=== PATIENT | female | born 1935 | race Caucasian/White ===

== ENCOUNTER → 2016-07-01 | Outpatient (CLI) | payer MEDICARE, OTHER, BC ==
[~2016-07-01] MED LIST: 8 HO650T PO; ACET-654 PO; ADV250INH INH; ALBU0.63 INH; ALBU17IN INH; AMIO200T37 PO; AMIO20TA PO; ASPI81TA13 PO; ATOR1TAB18 PO; ATOR40TA PO; BISA10SU PR; BREO1INH3 INH; CARD180C4 PO; CART300C PO; CEFT500T3 PO; CELE10TA PO; CLOP75TA2 PO; COLA100C PO; COZA1TAB PO; DILT180C74 PO; DILT360C16 PO; DILT360C2 PO; DULC10SU2 PO; DULC5TAB PO; ELIQ5TAB PO; FERR325T3 PO; FLUC10TA PO; FURO40TA2 PO; INSUDET SC; IPRA2IN INH; IRON65TA PO; LASI20TA PO; LEVA500T PO; LEVO50TA5 PO; LEVO75TA4 PO; LIPI80TA PO; LOSA25TA8 PO; METF1000 PO; MILKSUS PO; MIRA33504 PO; MUCI600T34 PO; NITR4TASL SL; NYST100024 TOP; NYST10OI TOP; NYST50SS SS; OCEA0.654; OMEP20CA3 PO; PACE200T PO; PANT40TA2 PO; PRED10TA PO; PRED20TA PO; PRIL20CA9 PO; REGL5TAB2 PO; SENN1TAB4 PO; SENO8.6T10 PO; SPIR1CAP INH; SUCR1TA PO; SYNT50TA PO; TYLE167L PO; VIAC8.5C PO; VIACCHW4 PO; VIBR100C PO; VITA10006 PO; VITA100066 PO; VITA100T20 PO; VITMTA PO
--- NOTE | 2016-07-01 15:57 | REP ---
Chest x-ray: Two views. History: Chronic diastolic congestive heart failure. Comparison chest x-ray May 11, 2016. Findings: Mild to moderate cardiomegaly is observed unchanged. There is no evidence of pleural effusion. Bilateral lower lobe fibrosis versus discoid atelectasis is seen. The aorta is calcific. Mild degenerative changes are seen in the thoracic spine. There are clips in the upper abdomen on the right. Impression: Cardiomegaly with bibasilar interstitial fibrosis pattern. No pulmonary vascular congestion, pulmonary edema or pleural effusion seen. Signed by Bang Christopher MD 07/01/2016 05:41 P
[2016-07-01 18:11] LABS: ALBUMIN 2.9 GM/DL (3.2-5.2); ALBUMIN/GLOBULIN RATIO 0.81 (1.00-1.93); BILIRUBIN,TOTAL 0.2 MG/DL (0.2-1.0); CALCIUM LEVEL 8.9 MG/DL (8.8-10.2); CREATININE FOR GFR 1.04 MG/DL (0.55-1.02); GLOMERULAR FILTRATION RATE 54.6 (>39); MAGNESIUM LEVEL 1.6 MG/DL (1.8-2.4); POTASSIUM SERUM 4.2 MEQ/L (3.5-5.1); TOTAL PROTEIN 6.5 GM/DL (6.4-8.2)
== END ==
LOC: M RAD 14:58
PROVIDERS: ATTEND Physician Assistant
DX: I51.7 Cardiomegaly (principal); I50.32 Chronic diastolic (congestive) heart failure; I48.0 Paroxysmal atrial fibrillation

== ENCOUNTER → 2016-07-22 | Outpatient (REF) | payer MEDICARE, OTHER | LOC: M SFHCCAPE 11:12 | PROVIDERS: ATTEND Physician Assistant | DX: J02.9 Acute pharyngitis, unspecified (principal) ==

== ENCOUNTER 2016-08-31 23:16 | Inpatient (IN) | payer MEDICARE, BC, OTHER ==
[~2016-08-31] VITALS: Ht 160 cm; Wt 71.4 kg
[~2016-08-31 23:16] MED LIST changes: -COLA100C PO; +COLA100C3 PO
[2016-09-01] VITALS (25 sets, daily range): BP systolic 113–215; BP diastolic 57–131
[2016-09-01] MEDS ORDERED: CEFEPIME HCL 2 GM in D5W MINI-BAG PLUS 50 ML IV ONE ×2
[2016-09-01 00:07] LABS: BASO # 0.1 K/mm3 (0.0-0.2); BASO % 0.5 % (0.0-1.0); EOS # 0.4 K/mm3 (0.0-0.50); EOS % 3.1 % (0.0-3.0); LARGE UNSTAINED CELL # 0.2 K/mm3 (0.0-0.4); LARGE UNSTAINED CELL % 1.5 % (0.0-4.0); LYMPH # 2.2 K/mm3 (1.5-4.5); LYMPH % 16.7 % (24.0-44.0); MEAN CORPUSCULAR HEMOGLOBIN 25.3 pg (27.0-33.0); MEAN CORPUSCULAR HGB CONC 30.7 g/dl (32.0-36.5); MEAN CORPUSCULAR VOLUME 82.2 fl (80.0-96.0); MONO # 0.6 K/mm3 (0.0-0.8); MONO % 5.2 % (0.0-5.0); NEUTROPHILS # 8.8 K/mm3 (1.8-7.7); PLATELET COUNT, AUTOMATED 460 k/mm3 (150-450); RED CELL DISTRIBUTION WIDTH 14.8 % (11.5-14.5)
[2016-09-01 00:09] LABS: ABG BASE EXCESS 8.7 (-2.0-2.0); ABG HCO3 32.9 MEQ/L (22.0-26.0); ABG PARTIAL PRESSURE CO2 43.6 mmHg (35.0-45.0); ABG PARTIAL PRESSURE O2 50.7 mmHg (75.0-100.0); ABG STANDARD HCO3 32.3 MEQ/L (22.0-26.0); ABG TOTAL CO2 34.2 MEQ/L (23.0-31.0); ABG pH (ARTERIAL) 7.495 UNITS (7.350-7.450)
[2016-09-01 00:35] LABS: ANION GAP 14 MEQ/L (8-16); BLOOD UREA NITROGEN 28 MG/DL (7-18); CALCIUM LEVEL 9.1 MG/DL (8.8-10.2); CARBON DIOXIDE LEVEL 31 MEQ/L (21-32); CHLORIDE LEVEL 96 MEQ/L (98-107); CREATININE FOR GFR 1.51 MG/DL (0.55-1.02); GLOMERULAR FILTRATION RATE 35.4 (>39); GLUCOSE, FASTING 131 MG/DL (83-110); POTASSIUM SERUM 3.9 MEQ/L (3.5-5.1); SODIUM LEVEL 141 MEQ/L (136-145)
[2016-09-01] MEDS ORDERED: CARD180C4 PO (00:36)
[2016-09-01] MEDS ORDERED: SYNT75TA PO (00:36)
[2016-09-01] MEDS ORDERED: SENN1TAB4 PO (00:36)
[2016-09-01] MEDS ORDERED: ALBUTEROL 90 MCG/ACT 8GM HFA INHALER INH PRN (01:45)
[2016-09-01] MEDS ORDERED: GLUCOSE 4 GM CHEW TABLET PO PRN (01:45)
[2016-09-01] MEDS ORDERED: NITROGLYCERIN 0.4 MG SUBL TABLET SL PRN (01:45)
[2016-09-01] MEDS ORDERED: DEXTROSE 50% 50 ML SYRINGE IV PRN (01:45)
[2016-09-01] MEDS ORDERED: GLUCAGON FOR INJ 1 MG VIAL (J1610) SC PRN (01:45)
--- NOTE | 2016-09-01 01:48 | HPEPDOC ---
General Date of Admission 09/01/2016 Chief Complaint The patient is a 81-year-old female Presented to the ER with complaints of shortness of breath. History of Present Illness Patient is a 81 year old female with a PMHx COPD on Home O2 (2-3 liters), CHF (Diastolic dysfunction, EG 75%), Pulmonary HTN, CAD s/p stent, NIDDM2, Atrial fibrillation (on Eliquis), Chronic vertigo, DLP, JASPAL not on CPAP , Iron deficiency anemia, Hypothyroidism and Hx of aspiration and pseudomonas pneumonia. Patient presented to the ED with complaints of shortness of breath that has been worsening over the last 3 days. Patient noted that she was hospitalized in March to April for pneumonia and had a collapse of her left lower lobe that was suspected to be secondary to mucous plugging. Since she left the hospital she has had some shortness of breath, but it has acutely worsened in the last 3 days. She reports a non-productive cough. No fever or chills. No nausea or vomiting. Reports some chest aching at the lower aspect of her chest radiating to her back. She rates it a 10/10, continuous pain, alleviated by sitting up and aggravated by lying flat. She denies any abdominal pain, constipation, diarrhea or urinary symptoms. Home Medications Scheduled (Viactiv 500-500-40 mg-Unt-Mcg) 1 Chw Chw 1 CHW PO QPM (Reported) TAKES AT DINNERTIME Amiodarone HCl (Amiodarone Hydrochloride) 200 Mg Tab 200 MG PO DAILY (Reported ) TAKES AT LUNCHTIME Apixaban Base (Eliquis) 5 Mg Tab 5 MG PO BID (Reported) Aspirin (Aspirin EC) 81 Mg Tab 81 MG PO DAILY (Reported) Atorvastatin Calcium (Atorvastatin Calcium) 40 Mg Tab 40 MG PO QPM (Reported) TAKES AT DINNERTIME Diltiazem Hcl (Cardizem Cd) 180 Mg Cap 180 MG PO DAILY (Reported) Fluticasone/Vilanterol (Breo Ellipta 200-25 Mcg/INH) 1 Inh Inh 1 INH INH BID ( Reported) Furosemide (Lasix) 20 Mg Tab 20 MG PO DAILY (Reported) TAKES AT LUNCHTIME Furosemide (Furosemide) 40 Mg Tab 40 MG PO DAILY (Reported) Levothyroxine Sodium (Synthroid) 75 Mcg Tab 75 MCG PO QAM (Reported) Losartan Potassium (Losartan Potassium) 25 Mg Tab 25 MG PO DAILY (Reported) HOLD IF SBP < 100; TAKES AT LUNCHTIME Metformin Hydrochloride (Metformin HCl) 1,000 Mg Tab 1,000 MG PO BID (Reported ) Multivitamins *[facility] STOCKED* (Thera M Plus *[facility] STOCKED*) 1 Tab Tab 1 TAB PO DAILY (Reported) Omeprazole (Omeprazole) 20 Mg Cap 20 MG PO DAILY (Reported) Senna (Senna-Lax) 8.6 Mg Tab 1 TAB PO QPM (Reported) Tiotropium Cornish Monohydrate (Spiriva Handihaler) 18 Mcg Cap 18 MCG INH DAILY (Reported) Scheduled PRN Albuterol Sulfate (Ventolin Hfa) 200 Puff/8 Gm Aers 2 PUFF INH Q4H PRN PRN SHORTNESS OF BREATH (Reported) Nitroglycerin (Nitrostat) 0.4 Mg Subl 0.4 MG SL NITRO PRN PRN ANGINA (Reported) Allergies Coded Allergies: MYA Inhibitors (Unverified Allergy, Unknown, COUGH, 08/31/16) Penicillins (Unverified Allergy, Unknown, RASH, 08/31/16) Penicillins Cross Reactors (Unverified Allergy, Unknown, RASH, 08/31/16) Sulfa Drugs (Unverified Allergy, Unknown, RASH, 08/31/16) Sulfa Drugs Cross Reactors (Unverified Allergy, Unknown, RASH, 08/31/16) NSAIDs (Unverified Adverse Reaction, Mild, GI UPSET DUODENITIS, 08/31/16) Spironolactone (Unverified Adverse Reaction, Mild, ELEVATES POTASSIUM, ) Past Medical History Medical History COPD on Home O2 (2-3 liters), CHF (Diastolic dysfunction, EG 75%), Pulmonary HTN , CAD s/p stent, NIDDM2, Atrial fibrillation (on Eliquis), Chronic vertigo, DLP , JASPAL not on CPAP, Iron deficiency anemia, Hypothyroidism and Hx of aspiration and pseudomonas pneumonia Surgical History Cholecystectomy Hysterectomy Appendectomy Bilateral cataract excision Lumpectomy in right breast Family History - non contributory Social History - Denies the use of alcohol or illicit drugs; Quit smoking in 1982, smoker of 30 years at 1 [facility] - Denies recent travel or sick contacts; last hospitalization was in [place] 2016 - Lives with - 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; 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 Review of Symptoms Other systems Constitutional: Denies weight loss, change in appetite, or recent trauma Eyes: No visual changes or eye pain Ears, Nose, Throat: Denies nose bleeds, or difficulty swallowing Cardiovascular: Positive chest pain, No sweating, or orthopnea Respiratory: Positive non-productive cough, and shortness of breath, no wheezing GI: Ruy nausea, vomiting, abdominal pain, diarrhea or constipation : Denies pain with urination or frequency Musculoskeletal: Denies joint pain or swelling Neuro / Psych: Denies muscle weakness or sensory loss Skin: No skin rashes noted All other review of systems negative; otherwise stated in history of present illness Vital Signs - Vitals: BP 156/71, HR 77, RR 22, Sat 91%NC2L, Temp 98.1F - General: Lying in bed, No acute distress, Speaking in full sentences, AAOx3 - HEENT: NC, AT, Asymmetric pupils, but reactive, EOMI - CVS: RRR, +S1S2, + systolic murmur - Lungs: Poor inspiratory effort, +Rhonchi on left lower lobe - Abdomen: Soft, Non-distended, Non-tender, + Bowel sounds x 4 - Extremities: + PPx4, No lower extremity edema, No calf tenderness - Neuro: No focal motor or sensory deficit - Skin: No visible rashes Laboratory Data Labs 24H Laboratory Tests 2 08/31/16 23:49: Anion Gap 14, Arterial Blood pH 7.495H, Arterial Blood Partial Pressure CO2 43.6 , Arterial Blood Partial Pressure O2 50.7L, Arterial Blood Total CO2 34.2H, Arterial Blood HCO3 32.9H, Arterial Blood Base Excess 8.7H, Arterial Blood Oxygen Saturation 87.0L, B-Type Natriuretic Peptide 203H, Blood Gas Bicarbonate Standard 32.3H, Blood Urea Nitrogen 28H, Creatinine 1.51H, Sodium Level 141, Potassium Level 3.9, Chloride Level 96L, Carbon Dioxide Level 31, Calcium Level 9.1, Total Creatine Kinase 49, Creatine Kinase MB 1.0, Creatine Kinase MB Relative Index 2.04, Glomerular Filtration Rate 35.4L, Troponin I < 0.02 08/31/16 23:50: White Blood Count 12.0H, Red Blood Count 3.85L, Hemoglobin 9.7L, Hematocrit 31.6L, Mean Corpuscular Volume 82.2, Mean Corpuscular Hemoglobin 25.3L, Mean Corpuscular Hemoglobin Concent 30.7L, Red Cell Distribution Width 14.8H, Platelet Count 460H, Neutrophils (%) (Auto) 73.0H, Lymphocytes (%) (Auto) 16.7L , Monocytes (%) (Auto) 5.2H, Eosinophils (%) (Auto) 3.1H, Basophils (%) (Auto) 0.5, Neutrophils # (Auto) 8.8H, Lymphocytes # (Auto) 2.2, Monocytes # (Auto) 0.6 , Eosinophils # (Auto) 0.4, Basophils # (Auto) 0.1, Lactic Acid (Sepsis) 3.1*H, Large Unclassified Cells # 0.2, Large Unclassified Cells % 1.5, Thyroid Stimulating Hormone (TSH) 3.090 CBC/BMP Laboratory Tests 08/31/16 23:49 Calcium Level 9.1, Total Creatine Kinase 49 08/31/16 23:50 Red Blood Count 3.85 L, Mean Corpuscular Volume 82.2, Mean Corpuscular Hemoglobin 25.3 L, Mean Corpuscular Hemoglobin Concent 30.7 L, Red Cell Distribution Width 14.8 H, Neutrophils (%) (Auto) 73.0 H, Lymphocytes (%) (Auto ) 16.7 L, Monocytes (%) (Auto) 5.2 H, Eosinophils (%) (Auto) 3.1 H, Basophils (% ) (Auto) 0.5, Neutrophils # (Auto) 8.8 H, Lymphocytes # (Auto) 2.2, Monocytes # (Auto) 0.6, Eosinophils # (Auto) 0.4, Basophils # (Auto) 0.1 Microbiology Microbiology 09/01/16 Blood Culture, Received Pending 08/31/16 Blood Culture, Received Pending Plan / VTE VTE Prophylaxis Ordered?: Yes Plan Plan Dyspnea likely 2/2 left lower lobe pneumonia and collapse, possibly 2/2 mucous plugging, possibly 2/2 underlying endobronchial malignancy - Presented with dyspnea, no fevers or productive cough - History of LL collapse in the past, attributed to mucous plugging - Elevated WBC and lactic acid - CT chest official report pending - Will check blood cultures and sputum cultures - Will start incentive spirometry and chest PT - Will continue with Meropenem and Vancomycin - Will give IV fluid hydration - May require bronchoscopy to further evaluate Chest pain likely 2/2 referred pain, less likely cardiac - EKG reveals no acute changes - Troponin first set negative - Will keep on telemetry - Will trend COPD on Home O2 (2-3 liters) CHF (Diastolic dysfunction, EG 75%) - will hold diuretics for now Pulmonary HTN CAD s/p stent NIDDM2 Atrial fibrillation (on Eliquis) Chronic vertigo DLP JASPAL not on CPAP Iron deficiency anemia Hypothyroidism Hx of aspiration and pseudomonas pneumonia DVT prophylaxis - On full anticoagulation with CHEN Roberto MD Sep 01, 2016 01:48
--- NOTE | 2016-09-01 01:50 | REPUSA ---
CLINICAL HISTORY: Left lung opacification on chest x-ray. TECHNIQUE: Multiple axial CT images were obtained through chest without IV contrast material. MPR cor onal and sagittal sequences were obtained. COMMENTS: Comparison is made to the prior exam performed on 04/12/2016. Mild increase in small left pleural effusion. Enlarged main pulmonary artery suggestive of pulmonary hypertension. There is loss of volume of the left upper lobe. This was not present on the prior exam. There is better aeration of the left lower lobe. There is decrease in groundglass densities of the right lower lobe. Unchanged chronic bronchitis. Unchanged mediastinal shift to the left side. Small sliding type hiatal hernia. Prior cholecystectomy. IMPRESSION: Loss of volume in the left upper lobe. Mediastinal shift to the left side. Mild increase in small left pleural effusion. Better aeration of the left lower lobe. Decreased ground glass densities in the right lower lobe. Thank you for your kind referral of this patient.
[2016-09-01] MEDS ORDERED: NS 1,000 ML IV SCH (03:07)
[2016-09-01] MEDS ORDERED: SODIUM CHLORIDE 0.9% 1000 ML IV ONE (03:17)
--- NOTE | 2016-09-01 03:31 | PHACANCOPD ---
PHARMACY VANCOMYCIN DOSING Pt Demographics Demographics Patient Age:81 , Weight: , Gender: female Adjusted Body Weight Date: 09/01/16, Adjusted Body Weight: [58] Kg Events Past 24 Hours Events Past 24 Hours: NO: Change in CrCl, Dialysis, Diuretic Therapy, Elevation in WBC, Fever, Other, Pending Diagnostics, Pending Procedures Vancomycin Vancomycin Target Ranges: 15-20 mcg/ml Vancomycin Load Y/N: No Load Dose Date Time Vancomycin Load Dose: Date: Time: Vancomycin Dose Date: 09/01/16. Current Vancomycin Dose: [1000MG Q24H] Intermittent Dosing?: No Labs Labs Item Value Date Time White Blood Count 12.0 K/mm3 H 08/31/16 2350 Creatinine 1.51 MG/DL H 08/31/16 2349 Vital Signs Label Value Date Time Patient Temperature 98.4 degrees F 09/01/16 0250 Temperature Source Oral 09/01/16 0250 Micro Microbiology 09/01/16 Blood Culture, Received Pending 08/31/16 Blood Culture, Received Pending 09/01/16 Respiratory Virus Panel (PCR) (CATHY), Received Pending Creatinine Clearance Date:09/01/16. Creatinine Clearance: [27]. Pending Labs trough 03 @0300 Assessment and Plan Maintaining Current Dose?: Yes Reason for dose change: No Dose Change Pharmacist Note Pharmacist Note Date: 09/01/16. Pharmacist note:Patient dosed at 1000mg q24h with a trough scheduled for 03 @0300. Will continue to monitor and make adjustments as needed. KRISSY MCNALLY PHARMACY Sep 01, 2016 03:31
[2016-09-01] MEDS ORDERED: MORPHINE 2 MG/ML 1ML SYRINGE IV ONE (03:45)
[2016-09-01] MEDS: VANCOMYCIN HCL 1,000 MG, VIAL MATE ADAPTER 1 EACH in D5W 250 ML IV SCH (04:01)
[2016-09-01 04:36] LABS: BASO # 0.1 K/mm3 (0.0-0.2); BASO % 0.5 % (0.0-1.0); EOS # 0.3 K/mm3 (0.0-0.50); EOS % 2.7 % (0.0-3.0); LARGE UNSTAINED CELL # 0.2 K/mm3 (0.0-0.4); LARGE UNSTAINED CELL % 1.7 % (0.0-4.0); LYMPH # 2.2 K/mm3 (1.5-4.5); LYMPH % 16.5 % (24.0-44.0); MEAN CORPUSCULAR HEMOGLOBIN 25.7 pg (27.0-33.0); MEAN CORPUSCULAR HGB CONC 31.3 g/dl (32.0-36.5); MEAN CORPUSCULAR VOLUME 82.1 fl (80.0-96.0); MONO # 0.6 K/mm3 (0.0-0.8); MONO % 5.3 % (0.0-5.0); NEUTROPHILS # 8.9 K/mm3 (1.8-7.7); NEUTROPHILS % 73.4 % (36.0-66.0); PLATELET COUNT, AUTOMATED 444 k/mm3 (150-450); RED CELL DISTRIBUTION WIDTH 14.6 % (11.5-14.5); WHITE BLOOD COUNT 12.1 K/mm3 (4.0-10.0)
[2016-09-01 05:00] LABS: ALBUMIN 3.3 GM/DL (3.2-5.2); ALBUMIN/GLOBULIN RATIO 0.77 (1.00-1.93); ALKALINE PHOSPHATASE 63 U/L (45-117); ALT/SGPT 17 U/L (12-78); ANION GAP 10 MEQ/L (8-16); AST/SGOT 11 U/L (15-37); BILIRUBIN,TOTAL 0.4 MG/DL (0.2-1.0); BLOOD UREA NITROGEN 27 MG/DL (7-18); CALCIUM LEVEL 8.8 MG/DL (8.8-10.2); CARBON DIOXIDE LEVEL 34 MEQ/L (21-32); CHLORIDE LEVEL 96 MEQ/L (98-107); CREATININE FOR GFR 1.51 MG/DL (0.55-1.02); GLOMERULAR FILTRATION RATE 35.4 (>39); GLUCOSE, FASTING 120 MG/DL (83-110); POTASSIUM SERUM 3.9 MEQ/L (3.5-5.1); SODIUM LEVEL 140 MEQ/L (136-145); TOTAL PROTEIN 7.6 GM/DL (6.4-8.2)
[2016-09-01] MEDS: MEROPENEM INJ 500 MG in D5W MINI-BAG PLUS 100 ML IV SCH ×2 (05:52→17:10)
[2016-09-01] MEDS: LEVOTHYROXINE 0.075 MG TAB (75 MCG) PO SCH (05:52)
[2016-09-01] MEDS: HumaLOG INSULIN (NovoLOG) PER UNIT SC SCH ×3 (05:54→18:00)
[2016-09-01 06:18] LABS: ABG BASE EXCESS 8.4 (-2.0-2.0); ABG PARTIAL PRESSURE CO2 46.3 mmHg (35.0-45.0); ABG PARTIAL PRESSURE O2 56.4 mmHg (75.0-100.0); ABG STANDARD HCO3 32.1 MEQ/L (22.0-26.0); ABG TOTAL CO2 34.4 MEQ/L (23.0-31.0); ABG pH (ARTERIAL) 7.471 UNITS (7.350-7.450)
[2016-09-01] MEDS ORDERED: HumaLOG INSULIN (NovoLOG) PER UNIT SC SCH ×2 (07:30→21:00)
[2016-09-01] MEDS: ACETAMINOPHEN TAB 650MG DOSE (2X325MG) PO PRN (07:43)
[2016-09-01] MEDS: ASPIRIN 81 MG ENTERIC TAB PO SCH (07:54)
[2016-09-01] MEDS: MULTIVITAMINS/MINERALS THERAP 1 TAB PO SCH (07:54)
[2016-09-01] MEDS: APIXABAN 5 MG TAB (ELIQUIS) PO SCH ×2 (07:54→17:09)
[2016-09-01] MEDS: OMEPRAZOLE 20 MG CAP PO SCH (07:55)
[2016-09-01] MEDS: diltiaZEM **CD** 180 MG CAP PO SCH (07:55)
[2016-09-01] MEDS: TIOTROPIUM INHALER/CAPSULE (SPIRIVA) INH SCH (08:41)
--- NOTE | 2016-09-01 08:57 | IPNPDOC ---
Subjective Date Seen The patient was seen on 09/01/16. Subjective Chief Complaint/HPI The patient is a 81-year-old female admitted with a reason for visit of Dyspnea. Events since last encounter States LIGHT and SOB mildly improved since admission. Denies ill contacts. C?o pleuritic CP and back pain with coughing, deep inspiration. Constitutional: Denies: Chills, Fever, Night Sweats Skin: Denies: Breakdown, Lesions, Rash Pulmonary: Reports: Cough, Dyspnea, Pleuritic Chest Pain Cardiovascular: Denies: Chest Pain, Lt Headedness, Orthopnea, Palpitations, Paroxysmal Noc. Dyspnea Gastrointestinal: Denies: Abdominal Pain, Constipation, Diarrhea, Nausea, Vomiting Genitourinary: Denies: Dysuria, Frequency, Incontinence, Retention Psych: Reports: Mood Normal, Denies: Depression, Memory Issues Objective Physical Examination General Exam: Positive: Alert, Mild Distress Eye Exam: Positive: Conjunctiva & lids normal, EOMI, PERRLA, Negative: Sclera icteric Neck Exam: Positive: Supple, Negative: JVD, thyromegaly Chest Exam: Positive: Diminished (minimal breath sounds Left lung. diminished RUL) Heart Exam: Positive: Normal S1, Normal S2, Rate Normal, Regular Rhythm, Negative: Murmurs, Rubs Telemetry: Positive: AV Block Abdomen Exam: Positive: Normal bowel sounds, Soft, Negative: Hepatospenomegaly, Tenderness Extremity Exam: Positive: Normal pulses, Negative: Clubbing, Cyanosis, Edema Skin Exam: Positive: Nl turgor and temperature, Negative: Breakdown, Rash Neuro Exam: Positive: Normal Speech Psych Exam: Positive: Mental status NL, Mood NL, Oriented x 3 Assessment /Plan Problems (1) COPD with acute exacerbation Status: Acute Problem Text: + MRSA in sputum last admission. Will eval repeat sputum cx. Oxygenation with face mask. maintain oxygen saturations 88-92% (2) Atrial fibrillation, chronic Status: Chronic Problem Text: Follows with [facility]ORGE. Eliquis bid. Home Cardizem dosing continued. (3) Obstructive sleep apnea Status: Chronic Problem Text: no CPAP use at home. (4) Coronary arteriosclerosis Status: Chronic (5) Diabetes mellitus Status: Chronic Response to Treatment: Stable Problem Specific Plan: Monitor Clinically (6) Hypothyroidism Status: Chronic Response to Treatment: Stable Problem Specific Plan: Monitor Clinically (7) Chest wall pain Status: Acute Problem Text: Secondary to coughing, respiratory abnormalities. K-pad prn. Tylenol prn. Hydrocodone prn. (8) Diastolic CHF, chronic Permanent Comment: ECHO 04/2016: LVEF 75% Borderline concentric left ventricle hypertrophy with hyperkinetic wall motion. Mildly dilated left atrium with Doppler evidence of impairment of LV diastolic function but current estimated mean left atrial pressure upper limits of normal to slightly increased. Mildly dilated right heart chambers with Doppler evidence of at least moderate pulmonary hypertension. Inferior vena cava (IVC) upper limits of normal with normal respiratory collapse against an elevated central venous pressure at this time. Mild calcific aortic stenosis with very mild insufficiency. Moderately severe mitral annular calcification without inflow tract obstruction and only mild eccentric insufficiency. Last Edited By: Karla Garcia NP on Sep 01, 2016 08:56 Status: Chronic Problem Specific Plan: Monitor Clinically Plan/VTE VTE Prophylaxis Ordered?: Yes (Eliquis) Plan Diet: Advance Activity: Continue Current Diagnostics: Repeat Labs in AM VS, I&O, [facility] Sign[facility]/I&O Vital Signs Date Time Temp Pulse Resp B/P Pulse Ox O2 Delivery O2 Flow Rate FiO2 09/01/16 07:55 69 178/72 09/01/16 06:00 93 Venturi Mask 09/01/16 05:00 50 09/01/16 04:01 20 09/01/16 03:07 97.9 4.0 I&O- Last 24 Hours up to 6 AM 09/01/16 06:00 Intake Total 50 ml Output Total 80 ml Balance -30 ml Laboratory Data 24H LABS Laboratory Tests 2 08/31/16 23:49: Anion Gap 14, Arterial Blood pH 7.495H, Arterial Blood Partial Pressure CO2 43.6 , Arterial Blood Partial Pressure O2 50.7L, Arterial Blood Total CO2 34.2H, Arterial Blood HCO3 32.9H, Arterial Blood Base Excess 8.7H, Arterial Blood Oxygen Saturation 87.0L, B-Type Natriuretic Peptide 203H, Blood Gas Bicarbonate Standard 32.3H, Blood Urea Nitrogen 28H, Creatinine 1.51H, Sodium Level 141, Potassium Level 3.9, Chloride Level 96L, Carbon Dioxide Level 31, Calcium Level 9.1, Total Creatine Kinase 49, Creatine Kinase MB 1.0, Creatine Kinase MB Relative Index 2.04, Glomerular Filtration Rate 35.4L, Troponin I < 0.02 08/31/16 23:50: White Blood Count 12.0H, Red Blood Count 3.85L, Hemoglobin 9.7L, Hematocrit 31.6L, Mean Corpuscular Volume 82.2, Mean Corpuscular Hemoglobin 25.3L, Mean Corpuscular Hemoglobin Concent 30.7L, Red Cell Distribution Width 14.8H, Platelet Count 460H, Neutrophils (%) (Auto) 73.0H, Lymphocytes (%) (Auto) 16.7L , Monocytes (%) (Auto) 5.2H, Eosinophils (%) (Auto) 3.1H, Basophils (%) (Auto) 0.5, Neutrophils # (Auto) 8.8H, Lymphocytes # (Auto) 2.2, Monocytes # (Auto) 0.6 , Eosinophils # (Auto) 0.4, Basophils # (Auto) 0.1, Lactic Acid (Sepsis) 3.1*H, Large Unclassified Cells # 0.2, Large Unclassified Cells % 1.5, Thyroid Stimulating Hormone (TSH) 3.090 09/01/16 04:08: Anion Gap 10, Blood Urea Nitrogen 27H, Creatinine 1.51H, Sodium Level 140, Potassium Level 3.9, Chloride Level 96L, Carbon Dioxide Level 34H, Calcium Level 8.8, Total Creatine Kinase 46, Creatine Kinase MB 1.0, Creatine Kinase MB Relative Index 2.17, Glomerular Filtration Rate 35.4L, Troponin I < 0.02, White Blood Count 12.1H, Red Blood Count 3.71L, Hemoglobin 9.5L, Hematocrit 30.4L, Mean Corpuscular Volume 82.1, Mean Corpuscular Hemoglobin 25.7L, Mean Corpuscular Hemoglobin Concent 31.3L, Red Cell Distribution Width 14.6H, Platelet Count 444, Neutrophils (%) (Auto) 73.4H, Lymphocytes (%) (Auto) 16.5L, Monocytes (%) (Auto) 5.3H, Eosinophils (%) (Auto) 2.7, Basophils (%) (Auto) 0.5 , Neutrophils # (Auto) 8.9H, Lymphocytes # (Auto) 2.2, Monocytes # (Auto) 0.6, Eosinophils # (Auto) 0.3, Basophils # (Auto) 0.1, Lactic Acid (Sepsis) 2.3*H, Large Unclassified Cells # 0.2, Large Unclassified Cells % 1.7, Aspartate Amino Transf (AST/SGOT) 11L, Alanine Aminotransferase (ALT/SGPT) 17, Alkaline Phosphatase 63, Total Bilirubin 0.4, Total Protein 7.6, Albumin 3.3, Albumin/ Globulin Ratio 0.77L 09/01/16 05:04: Urine Amorphous Sediment , Urine Appearance CLOUDYH, Urine Color YELLOW, Urine pH 6.0, Urine Specific [place] 1.010, Urine Protein NEGATIVE, Urine Glucose (UA ) NEGATIVE, Urine Ketones NEGATIVE, Urine Urobilinogen 0.2, Urine Bilirubin NEGATIVE, Urine Leukocyte Esterase TRACEH, Urine Bacteria (Auto) 1+H, Urine Blood NEGATIVE, Urine Calcium Carbonate Cryst(Auto) , Urine Calcium Oxalate Cryst (Auto) , Urine Calcium Phosphate [place] (Auto) , Urine Cellular Casts , Urine Cystine Crystals , Urine Granular Casts (Auto) , Urine Hyaline Casts (Auto ) 0, Urine Leucine Crystals , Urine Mucus (Auto) SMALL, Urine Nitrite NEGATIVE, Urine Oval Fat Bodies (Auto) , Urine RBC (Auto) 4H, Urine Renal Epithelial Cells , Urine Sperm (Auto) , Urine Squamous Epithelial Cells 13, Urine Transitional Epithelial Cells , Urine Trichomonas (Auto) , Urine Triple Phosphate Cryst (Auto) , Urine Tyrosine Crystals , Urine Uric Acid Crystals ( Auto) SMALL, Urine WBC (Auto) 2, Urine Waxy Casts (Auto) , Urine Yeast-Like Cells (Auto) 09/01/16 05:56: Arterial Blood pH 7.471H, Arterial Blood Partial Pressure CO2 46.3H, Arterial Blood Partial Pressure O2 56.4L, Arterial Blood Total CO2 34.4H, Arterial Blood HCO3 33.0H, Arterial Blood Base Excess 8.4H, Arterial Blood Oxygen Saturation 89.9L, Blood Gas Bicarbonate Standard 32.1H CBC/BMP Laboratory Tests 08/31/16 23:49 Calcium Level 9.1, Total Creatine Kinase 49 08/31/16 23:50 Red Blood Count 3.85 L, Mean Corpuscular Volume 82.2, Mean Corpuscular Hemoglobin 25.3 L, Mean Corpuscular Hemoglobin Concent 30.7 L, Red Cell Distribution Width 14.8 H, Neutrophils (%) (Auto) 73.0 H, Lymphocytes (%) (Auto ) 16.7 L, Monocytes (%) (Auto) 5.2 H, Eosinophils (%) (Auto) 3.1 H, Basophils (% ) (Auto) 0.5, Neutrophils # (Auto) 8.8 H, Lymphocytes # (Auto) 2.2, Monocytes # (Auto) 0.6, Eosinophils # (Auto) 0.4, Basophils # (Auto) 0.1 09/01/16 04:08 Calcium Level 8.8, Total Creatine Kinase 46, Red Blood Count 3.71 L, Mean Corpuscular Volume 82.1, Mean Corpuscular Hemoglobin 25.7 L, Mean Corpuscular Hemoglobin Concent 31.3 L, Red Cell Distribution Width 14.6 H, Neutrophils (%) ( Auto) 73.4 H, Lymphocytes (%) (Auto) 16.5 L, Monocytes (%) (Auto) 5.3 H, Eosinophils (%) (Auto) 2.7, Basophils (%) (Auto) 0.5, Neutrophils # (Auto) 8.9 H , Lymphocytes # (Auto) 2.2, Monocytes # (Auto) 0.6, Eosinophils # (Auto) 0.3, Basophils # (Auto) 0.1, Aspartate Amino Transf (AST/SGOT) 11 L, Alanine Aminotransferase (ALT/SGPT) 17, Alkaline Phosphatase 63, Total Bilirubin 0.4, Total Protein 7.6, Albumin 3.3 Microbiology Microbiology 09/01/16 Blood Culture, Received Pending 08/31/16 Blood Culture, Received Pending 09/01/16 Respiratory Virus Panel (PCR) (CATHY) - Final, Complete 09/01/16 Urine Culture, Received Pending Karla Garcia [facility] Sep 01, 2016 08:57
[2016-09-01] MEDS: BREO ELLIPTA 200/25 (PATIENT'S OWN MED) INH SCH (09:00)
--- NOTE | 2016-09-01 09:37 | REP ---
Portable chest x-ray: Single view. History: Dyspnea and cough. Comparison radiographs July 01, 2016. Findings: There is volume loss in the left hemithorax with shift of the mediastinum to the left. There is increased density in the left perihilar region and along the left mediastinum suggesting lobar atelectasis in the left upper lobe. Right lung is clear except for some mild plate-like atelectasis at the base. Impression: Findings compatible with left upper lobe atelectasis and/or infiltrate. Volume loss in the left hemithorax. Signed by Bang Christopher MD 09/01/2016 09:55 A
[2016-09-01] MEDS ORDERED: NS 500 ML IV ONE (10:00)
[2016-09-01] MEDS ORDERED: LIDOCAINE 1% MDV 20ML VIAL As Ordered ONE (11:01)
[2016-09-01] MEDS ORDERED: MIDAZOLAM INJ 2 MG/2 ML VIAL (J2250) As Ordered ONE (11:55)
[2016-09-01] MEDS ORDERED: EPINEPHrine 1MG/10ML SYRINGE 1.5IN As Ordered ONE (11:58)
[2016-09-01] MEDS ORDERED: LIDOCAINE 1% MDV 20ML VIAL SC ONE (12:30)
[2016-09-01] MEDS ORDERED: EPINEPHrine 1MG/10ML SYRINGE 1.5IN IV ONE (12:30)
[2016-09-01] MEDS: NS 1,000 ML IV SCH (12:44)
[2016-09-01] MEDS ORDERED: MIDAZOLAM INJ 2 MG/2 ML VIAL (J2250) IV ONE (12:45)
[2016-09-01] MEDS: AMIODARONE 200 MG TAB (PACERONE) PO SCH (13:56)
[2016-09-01] MEDS: LOSARTAN 25 MG TAB PO SCH (13:56)
--- NOTE | 2016-09-01 14:12 | REP ---
Chest x-ray: Two views. History: Left-sided atelectasis. Comparison study is from August 31, 2016. Findings: There is increased opacity in the left upper lobe distribution with volume loss in the left hemithorax as before consistent with atelectasis in the left upper lobe. This is more pronounced than on the August 31, 2016 study. The right lung is free of infiltrate. Some vascular congestion is seen in the right lung. Impression: Increased consolidation and atelectasis in the left upper lobe region. Volume loss in the left lung. Extensive pleuroparenchymal changes. Signed by Bang Christopher MD 09/01/2016 05:10 P
[2016-09-01] MEDS: ALBUTEROL SULFATE 2.5 MG/0.5 ML INH NEB SOLN NEB SCH ×2 (15:48→19:35)
[2016-09-01] MEDS: SENNA 8.6 MG TAB (SENOKOT) PO SCH (17:09)
[2016-09-01] MEDS: ATORVASTATIN 20 MG TAB PO SCH (17:09)
[2016-09-01] MEDS: NORCO, ANEXSIA 5/325MG TABLET (HYDROcodone/ACETAMINOPHEN) PO PRN ×2 (17:20→21:59)
[2016-09-02] VITALS (9 sets, daily range): BP systolic 122–174; BP diastolic 52–72
[2016-09-02] MEDS: HumaLOG INSULIN (NovoLOG) PER UNIT SC SCH ×5 (00:41→20:50)
--- NOTE | 2016-09-02 02:25 | ECGEPIP ---
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
[2016-09-02] MEDS: VANCOMYCIN HCL 1,000 MG, VIAL MATE ADAPTER 1 EACH in D5W 250 ML IV SCH (04:02)
--- NOTE | 2016-09-02 05:42 | CR ---
DATE OF VISIT: 09/01/2016 PULMONARY SERVICE NOTE. The patient is known to me from outpatient evaluations. She has moderate to severe obstructive lung disease secondary to 26 pack-years of cigarette smoking. Quit tobacco use in 1982. Her outpatient forced vital capacity 69% of predicted, FEV-1 is 1.08 meters, 51% of predicted. She also suffers from obstructive sleep apnea syndrome but does not regularly use pressure therapy. She was recently hospitalized for pneumonia, improved during the hospitalization and was discharged. Symptoms recurred and she has been readmitted. The infiltrate appreciated in her left lung during her previous hospitalization has progressed. VITAL SIGNS: Temperature is 98, pulse rate 64, respirations 20, blood pressure 152/67. HEENT: Oral and nasal mucosa are dry. Posterior pharynx shows some erythema, crusty secretions. NECK: There is no stridor over trachea and no adenopathy in the neck or jugular venous distension. Carotid upstroke sluggish without bruit. HEART: Sounds are regular with a systolic murmur over the aortic area. CHEST: Breath sounds are absent over the left chest anteriorly, diminished posteriorly on the left, expiratory phase is prolonged. There is some end-expiratory crepitance in the right base. Chest is symmetric, increased in its AP diameter. ABDOMEN: Soft. EXTREMITIES: Show no significant edema. LABORATORY DATA: Diagnostic studies were reviewed. Her white count is 12.1, hemoglobin 9.5, hematocrit 30.4, platelet count 444,000. Sodium is 140, potassium 3.9, chloride 96, CO2 34, BUN 27, creatinine 1.5, glucose 120. Arterial blood gases show pH 7.47, pCO2 of 46, pO2 56. Chest x-ray and CT scan show left upper lobe are collapsed with shift of mediastinum toward the left. IMPRESSION: 1. Recurrent pneumonia. I agree with broad-spectrum antibiotics pending culture. 2. Atelectasis left upper lobe with mediastinal shift. The patient's cough is somewhat weak and ineffective. I have reviewed options with the patient and her family. We will proceed with fiberoptic bronchoscopy in an effort to clear the airways. 3. Chronic obstructive lung disease. Bronchodilator therapy and steroids have been initiated. Thank allowing me consult in the care of this patient. If there are questions please do not hesitate to contact me.
[2016-09-02 05:52] LABS: BASO % 0.4 % (0.0-1.0); EOS # 0.5 K/mm3 (0.0-0.50); EOS % 5.3 % (0.0-3.0); LARGE UNSTAINED CELL # 0.2 K/mm3 (0.0-0.4); LARGE UNSTAINED CELL % 1.8 % (0.0-4.0); LYMPH # 1.2 K/mm3 (1.5-4.5); LYMPH % 12.1 % (24.0-44.0); MEAN CORPUSCULAR HEMOGLOBIN 25.9 pg (27.0-33.0); MEAN CORPUSCULAR HGB CONC 31.4 g/dl (32.0-36.5); MEAN CORPUSCULAR VOLUME 82.6 fl (80.0-96.0); MONO # 0.6 K/mm3 (0.0-0.8); MONO % 6.1 % (0.0-5.0); NEUTROPHILS # 7.3 K/mm3 (1.8-7.7); NEUTROPHILS % 74.3 % (36.0-66.0); PLATELET COUNT, AUTOMATED 393 k/mm3 (150-450); RED CELL DISTRIBUTION WIDTH 14.5 % (11.5-14.5); WHITE BLOOD COUNT 9.9 K/mm3 (4.0-10.0)
[2016-09-02 06:05] LABS: ALBUMIN 2.7 GM/DL (3.2-5.2); ALBUMIN/GLOBULIN RATIO 0.68 (1.00-1.93); BILIRUBIN,TOTAL 0.4 MG/DL (0.2-1.0); CALCIUM LEVEL 8.5 MG/DL (8.8-10.2); CREATININE FOR GFR 1.37 MG/DL (0.55-1.02); GLOMERULAR FILTRATION RATE 39.6 (>39); POTASSIUM SERUM 3.8 MEQ/L (3.5-5.1); TOTAL PROTEIN 6.7 GM/DL (6.4-8.2)
[2016-09-02] MEDS: LEVOTHYROXINE 0.075 MG TAB (75 MCG) PO SCH (06:11)
[2016-09-02] MEDS: MEROPENEM INJ 500 MG in D5W MINI-BAG PLUS 100 ML IV SCH ×2 (06:11→20:06)
--- NOTE | 2016-09-02 07:36 | RO ---
DATE OF PROCEDURE: 09/02/2015 PREPROCEDURE DIAGNOSIS: Mucous plugging. POSTPROCEDURE DIAGNOSIS: Mucous plugging. PROCEDURE: Fiberoptic bronchoscopy with transbronchoscopic washing and retrieval of mucous. SURGEON: Dr. Hai Bermeo. EVP [place]: ANESTHESIA: ESTIMATED BLOOD LOSS: FINDINGS: Include dried secretions in the posterior pharynx with mucosal bleeding. Ectasis of the airways and occlusion of the left main stem bronchus by thick white mucus. PROCEDURE NOTE: The patient was seen and the procedure explained to the patient as were all the possible complications pertaining thereto including but not limited to bleeding, infection, medication reaction and lung collapse. A written and informed consent were obtained and placed in the chart. The patient was placed in supine position. Topical anesthetic was applied to the left nares using Xylocaine and the patient was given 2 mg of Versed. When anesthetic had had sufficient time to take effect, the bronchoscope was placed in through the left nares and into the posterior pharynx. There was copious secretions dried in the posterior pharynx with mucosal bleeding surrounding. These were lavaged with saline and suctioned free. The glottis was visualized and noted to be free of lesion and vocal cords moving normally. The bronchoscope was placed through the vocal cords and into the trachea. Trachea was ectatic. There were no gross lesions. The tisha was found to be sharp. The airways of the right lung were briefly examined in a subsegmental fashion. There was no obvious evidence of tumor, ulcer, necrosis vessel engorgement or mucosal irregularity. The left mainstem bronchus was totally occluded by clear white thick mucus. The secretions were quite tenacious. The airways were lavaged with topical lidocaine and subsequently saline. Specimen was obtained from washes of the left main bronchus. Copious secretions were withdrawn, however, patency was unable to be fully reestablished the patient had significant coughing which was unable to be suppressed and limited the continuation of the procedure. The bronchoscope was retracted out through the nose. Patient tolerated the procedure fairly well with no apparent complication and is in improved condition in the intensive care unit.
[2016-09-02] MEDS: TIOTROPIUM INHALER/CAPSULE (SPIRIVA) INH SCH (07:38)
[2016-09-02] MEDS: ALBUTEROL SULFATE 2.5 MG/0.5 ML INH NEB SOLN NEB SCH ×4 (07:38→20:20)
[2016-09-02] MEDS: ASPIRIN 81 MG ENTERIC TAB PO SCH (08:27)
[2016-09-02] MEDS: APIXABAN 5 MG TAB (ELIQUIS) PO SCH ×2 (08:29→20:06)
[2016-09-02] MEDS: NORCO, ANEXSIA 5/325MG TABLET (HYDROcodone/ACETAMINOPHEN) PO PRN (08:29)
[2016-09-02] MEDS: OMEPRAZOLE 20 MG CAP PO SCH (08:31)
[2016-09-02] MEDS: diltiaZEM **CD** 180 MG CAP PO SCH (08:33)
[2016-09-02] MEDS: MULTIVITAMINS/MINERALS THERAP 1 TAB PO SCH (08:33)
--- NOTE | 2016-09-02 08:35 | REP ---
Clinical: Lingular atelectasis. Comparison: 09/01/2016, 08/31/2016. Findings: There is complete opacification of the left hemithorax with ipsilateral mediastinal shift similar to 09/01/2016 and consistent with suspected left upper lobe and left lower lobe collapse. The right hemithorax demonstrates chronic appearing changes along with trace right basilar atelectasis. There is truncation of the left mainstem bronchus at the hilum without associated left-sided air bronchograms suggesting the possibility of mucous plugging. Impression: Essentially complete opacification of the left hemithorax with ipsilateral mediastinal shift suggesting volume loss and areas of collapse. Truncation of the left mainstem bronchus without associated distal air bronchograms suggests mucous plugging. Signed by Thien Mendez MD 09/02/2016 08:27 A
[2016-09-02] MEDS: BREO ELLIPTA 200/25 (PATIENT'S OWN MED) INH SCH (09:00)
--- NOTE | 2016-09-02 09:21 | IPNPDOC ---
Subjective Date Seen The patient was seen on 09/02/16. Subjective Chief Complaint/HPI The patient is a 81-year-old female admitted with a reason for visit of Dyspnea. Events since last encounter Pt states she feels about the same. Constitutional: Denies: Chills, Fever Pulmonary: Reports: Dyspnea Cardiovascular: Denies: Chest Pain Gastrointestinal: Denies: Abdominal Pain, Nausea, Vomiting Objective Physical Examination General Exam: Positive: Alert, Mild Distress Eye Exam: Positive: Conjunctiva & lids normal, EOMI, PERRLA, Negative: Sclera icteric Neck Exam: Positive: Supple, Negative: JVD, thyromegaly Chest Exam: Positive: Diminished Heart Exam: Positive: Normal S1, Normal S2, Rate Normal, Regular Rhythm, Negative: Murmurs, Rubs Abdomen Exam: Positive: Normal bowel sounds, Soft, Negative: Hepatospenomegaly, Tenderness Extremity Exam: Positive: Normal pulses, Negative: Clubbing, Cyanosis, Edema Skin Exam: Positive: Nl turgor and temperature, Negative: Breakdown, Rash Neuro Exam: Positive: Normal Speech Psych Exam: Positive: Mental status NL, Mood NL, Oriented x 3 Assessment /Plan Problems (1) COPD with acute exacerbation Status: Acute Problem Text: 09/02 - Pulmonary following. Had bronchoscopy with transbronchoscopic washing and retrieval of mucous, yesterday. Pt states Dr Bermeo plans for another bronchoscopy today. On Vanco and Meropenem. On Nebs , Breo, Spiriva. On Supp O2 at 10 L. + MRSA in sputum last admission. Will eval repeat sputum cx. Oxygenation with face mask. maintain oxygen saturations 88-92% (2) Atrial fibrillation, chronic Status: Chronic Problem Text: Follows with [facility]. Eliquis bid. Home Cardizem dosing continued. (3) Obstructive sleep apnea Status: Chronic Problem Text: no CPAP use at home. (4) Coronary arteriosclerosis Status: Chronic (5) Diabetes mellitus Status: Chronic Response to Treatment: Stable Problem Specific Plan: Monitor Clinically (6) Hypothyroidism Status: Chronic Response to Treatment: Stable Problem Specific Plan: Monitor Clinically (7) Chest wall pain Status: Acute Problem Text: Secondary to coughing, respiratory abnormalities. K-pad prn. Tylenol prn. Hydrocodone prn. (8) Diastolic CHF, chronic Permanent Comment: ECHO 04/2016: LVEF 75% Borderline concentric left ventricle hypertrophy with hyperkinetic wall motion. Mildly dilated left atrium with Doppler evidence of impairment of LV diastolic function but current estimated mean left atrial pressure upper limits of normal to slightly increased. Mildly dilated right heart chambers with Doppler evidence of at least moderate pulmonary hypertension. Inferior vena cava (IVC) upper limits of normal with normal respiratory collapse against an elevated central venous pressure at this time. Mild calcific aortic stenosis with very mild insufficiency. Moderately severe mitral annular calcification without inflow tract obstruction and only mild eccentric insufficiency. Last Edited By: Karla Garcia NP on Sep 01, 2016 08:56 Status: Chronic Problem Specific Plan: Monitor Clinically Plan/VTE VTE Prophylaxis Ordered?: Yes (Eliquis) Plan/Urinary Catheter Reason for insertion/continuin: Acute obstruct/retention Plan Diet: Advance Activity: Continue Current Diagnostics: Repeat Labs in AM VS, I&O, 24H, Fishbone Vital Signs/I&O Vital Signs Date Time Temp Pulse Resp B/P Pulse Ox O2 Delivery O2 Flow Rate FiO2 09/02/16 08:33 72 136/52 09/02/16 08:29 24 Nasal Cannula 10.0 09/02/16 03:06 99.7 92 09/01/16 12:05 50 I&O- Last 24 Hours up to 6 AM 09/02/16 06:00 Intake Total 1080 ml Output Total 1100 ml Balance -20 ml Laboratory Data 24H LABS Laboratory Tests 2 09/01/16 13:00: Bedside Glucose (Misc Panel) 128H 09/01/16 17:08: Bedside Glucose (Misc Panel) 134H 09/02/16 04:37: Blood Urea Nitrogen 24H, Creatinine 1.37H, Sodium Level 141, Potassium Level 3.8 , Chloride Level 101, Carbon Dioxide Level 34H, Calcium Level 8.5L, Aspartate Amino Transf (AST/SGOT) 16, Alanine Aminotransferase (ALT/SGPT) 15, Alkaline Phosphatase 55, Total Bilirubin 0.4, Total Protein 6.7, Albumin 2.7L, Albumin/ Globulin Ratio 0.68L, Anion Gap 6L, White Blood Count 9.9, Red Blood Count 3.48L , Hemoglobin 9.0L, Hematocrit 28.7L, Mean Corpuscular Volume 82.6, Mean Corpuscular Hemoglobin 25.9L, Mean Corpuscular Hemoglobin Concent 31.4L, Red Cell Distribution Width 14.5, Platelet Count 393, Neutrophils (%) (Auto) 74.3H, Lymphocytes (%) (Auto) 12.1L, Monocytes (%) (Auto) 6.1H, Eosinophils (%) (Auto) 5.3H, Basophils (%) (Auto) 0.4, Neutrophils # (Auto) 7.3, Lymphocytes # (Auto) 1.2L, Monocytes # (Auto) 0.6, Eosinophils # (Auto) 0.5, Basophils # (Auto) 0.0, Glomerular Filtration Rate 39.6, Large Unclassified Cells # 0.2, Large Unclassified Cells % 1.8, Magnesium Level 2.0 CBC/BMP Laboratory Tests 09/02/16 04:37 Calcium Level 8.5 L, Aspartate Amino Transf (AST/SGOT) 16, Alanine Aminotransferase (ALT/SGPT) 15, Alkaline Phosphatase 55, Total Bilirubin 0.4, Total Protein 6.7, Albumin 2.7 L, Red Blood Count 3.48 L, Mean Corpuscular Volume 82.6, Mean Corpuscular Hemoglobin 25.9 L, Mean Corpuscular Hemoglobin Concent 31.4 L, Red Cell Distribution Width 14.5, Neutrophils (%) (Auto) 74.3 H , Lymphocytes (%) (Auto) 12.1 L, Monocytes (%) (Auto) 6.1 H, Eosinophils (%) ( Auto) 5.3 H, Basophils (%) (Auto) 0.4, Neutrophils # (Auto) 7.3, Lymphocytes # ( Auto) 1.2 L, Monocytes # (Auto) 0.6, Eosinophils # (Auto) 0.5, Basophils # (Auto ) 0.0 Microbiology Microbiology 09/01/16 Blood Culture - Preliminary, Resulted No growth after 24 hours . All specim... 08/31/16 Blood Culture - Preliminary, Resulted No growth after 24 hours . All specim... 09/01/16 Gram Stain - Final, Resulted 09/01/16 Bronchial Aspirate Culture, Resulted Pending 09/01/16 Respiratory Virus Panel (PCR) ([facility]) - Final, Complete 09/01/16 Urine Culture, Received Pending Kp Loyd Sep 02, 2016 09:21
[2016-09-02] MEDS: NS 1,000 ML IV SCH ×2 (12:37→20:05)
[2016-09-02] MEDS ORDERED: ONDANSETRON 4MG/2ML VIAL (J2405) As Ordered ONE (17:14)
[2016-09-02] MEDS ORDERED: ROCURONIUM BROMIDE 50 MG/5 ML VIAL As Ordered ONE (17:14)
[2016-09-02] MEDS ORDERED: PROPOFOL 200 MG/20 ML VIAL As Ordered ONE (17:14)
[2016-09-02] MEDS ORDERED: LIDOCAINE 2% INJ 100 MG/5 ML SDV (FOR ANES.) As Ordered ONE (17:15)
[2016-09-02] MEDS ORDERED: fentaNYL 100 MCG/2 ML INJECTION (J3010) As Ordered ONE (17:15)
[2016-09-02] MEDS ORDERED: MIDAZOLAM INJ 2 MG/2 ML VIAL (J2250) As Ordered ONE (17:15)
[2016-09-02] MEDS ORDERED: LIDOCAINE VISCOUS 2% SOLN 15ML UDC As Ordered ONE (17:24)
[2016-09-02] MEDS ORDERED: LIDOCAINE 2% MDV 20 ML VIAL As Ordered ONE (17:24)
[2016-09-02] MEDS ORDERED: EPINEPHrine 1MG/10ML SYRINGE 1.5IN As Ordered ONE (17:24)
[2016-09-02] MEDS ORDERED: THROMBIN SOLN 20,000 UNITS KIT As Ordered ONE (17:24)
--- NOTE | 2016-09-02 18:46 | REP ---
Clinical: Status post bronchoscopy. Comparison: 09/02/1969 at 08:10 a.m. Findings: Significantly improved aeration to the left hemithorax is noted with continued left lower lobe consolidation and possible right basilar atelectasis. No pneumothorax. Impression: Improved aeration to the left hemithorax with left lower lobe consolidation and possible right basilar atelectasis. Signed by Thien Mendez MD 09/02/2016 06:38 P
[2016-09-02] MEDS ORDERED: LR 1,000 ML IV SCH (19:15)
[2016-09-02] MEDS ORDERED: fentaNYL 100 MCG/2 ML INJECTION (J3010) IV PRN (19:15)
[2016-09-02] MEDS ORDERED: HYDROmorphone HCL 1 MG/ML SYRINGE (J1170) IV PRN (19:15)
[2016-09-02] MEDS ORDERED: ONDANSETRON 4MG/2ML VIAL (J2405) IV PRN (19:15)
[2016-09-02] MEDS ORDERED: MOM 30ML SUSPENSION UDC PO PRN (19:30)
[2016-09-02] MEDS: SENNA 8.6 MG TAB (SENOKOT) PO SCH (20:06)
[2016-09-02] MEDS: AMIODARONE 200 MG TAB (PACERONE) PO SCH (20:06)
[2016-09-02] MEDS: ATORVASTATIN 20 MG TAB PO SCH (20:07)
[2016-09-02] MEDS: LOSARTAN 25 MG TAB PO SCH (20:07)
[2016-09-02] MEDS: ALBUTEROL SULFATE 2.5 MG/0.5 ML INH NEB SOLN NEB PRN (23:45)
--- NOTE | 2016-09-03 00:28 | RO ---
DATE OF PROCEDURE: 09/02/2016 PREOPERATIVE DIAGNOSIS: Total atelectasis left lung. POSTOPERATIVE DIAGNOSIS: Total atelectasis left lung with findings of tenacious mucus plugging of the left main bronchus and proximal airways. PROCEDURE PERFORMED: Fiberoptic bronchoscopy with washing and removal of foreign body mucus. SURGEON: Dr. Hai Bermeo OCCUPATIONAL MEDICINE PHYSICIAN: ANESTHESIA: DESCRIPTION OF PROCEDURE: The patient was seen, and the procedure explained to the patient as were all of the possible complications pertaining thereto. A written and informed consent were obtained and placed on the chart. The patient was brought to the operative suite, placed under general anesthetic. When the anesthetic had had sufficient time to take effect, the bronchoscope was placed in through the endotracheal tube and into the trachea. The tisha was sharp. The left main bronchus was totally occluded by white, thick mucus. Multiple passes were made to suction the mucus free. Saline was used for instillation to assist in the process. The airways of the right lung were examined in a subsegmental fashion. There was no evidence of tumor, ulcer necrosis, vessel engorgement or mucosal irregularity. After removal of copious mucus from the left bronchial tree, airway ectasis was noted, but there was no endobronchial obstructing lesion. There was hypertrophied mucus pits at the takeoff of the lingula. Airways were thoroughly lavaged with saline. When no further secretions could be obtained, the bronchoscope was retracted out through the patient's endotracheal tube, anesthesia was reversed and she is now being transferred to the recovery room. There were no apparent complications. A postprocedure chest x-ray is pending.
[2016-09-03] MEDS: VANCOMYCIN HCL 1,000 MG, VIAL MATE ADAPTER 1 EACH in D5W 250 ML IV SCH (03:44)
--- NOTE | 2016-09-03 03:57 | PHACANCOPD ---
PHARMACY VANCOMYCIN DOSING Pt Demographics Demographics Patient Age:81 , Weight:67.100 , Gender: female Adjusted Body Weight Date: 09/01/16, Adjusted Body Weight: [58] Kg Vancomycin Vancomycin Target Ranges: 15-20 mcg/ml Vancomycin Load Y/N: No Load Dose Date Time Vancomycin Load Dose: Date: Time: Vancomycin Dose Date: 09/01/16. Current Vancomycin Dose: [1000MG Q24H] Intermittent Dosing?: No Labs Micro Microbiology 09/01/16 Blood Culture - Preliminary, Resulted No Growth after 48 hours. All Specime... 08/31/16 Blood Culture - Preliminary, Resulted 09/02/16 Gram Stain, Received Pending 09/02/16 Bronchial Aspirate Culture, Received Pending 09/01/16 Gram Stain - Final, Resulted 09/01/16 Bronchial Aspirate Culture, Resulted Pending 09/01/16 Respiratory Virus Panel (PCR) ([facility]) - Final, Complete 09/01/16 Urine Culture - Final, Complete Creatinine Clearance Date:09/01/16. Creatinine Clearance: [27]. Assessment and Plan Maintaining Current Dose?: Yes Reason for dose change: Other Pharmacist Note Pharmacist Note Date: 09/03/16. Pharmacist note:Vancomycin trough drawn this a.m.@0252 reported as 11.9-To reach target of 15-20, will reschedule next dose in 18 hours but keep dose at 1 gram as scr not yet posted for 09/03-Considering renal function, this should be adequate.-will continue to follow Date: 09/01/16. Pharmacist note:Patient dosed at 1000mg q24h with a trough scheduled for 09-03 @0300. Will continue to monitor and make adjustments as needed. RUSTY GODINEZ PHARMACY Sep 03, 2016 03:57
[2016-09-03 04:00] VITALS: BP 142/65
[2016-09-03] MEDS: MEROPENEM INJ 500 MG in D5W MINI-BAG PLUS 100 ML IV SCH ×2 (05:47→17:34)
[2016-09-03] MEDS: LEVOTHYROXINE 0.075 MG TAB (75 MCG) PO SCH (05:47)
[2016-09-03 06:08] LABS: BASO % 0.3 % (0.0-1.0); EOS # 0.5 K/mm3 (0.0-0.50); EOS % 4.9 % (0.0-3.0); LARGE UNSTAINED CELL # 0.2 K/mm3 (0.0-0.4); LARGE UNSTAINED CELL % 1.9 % (0.0-4.0); LYMPH # 1.7 K/mm3 (1.5-4.5); LYMPH % 13.7 % (24.0-44.0); MEAN CORPUSCULAR HGB CONC 30.9 g/dl (32.0-36.5); MEAN CORPUSCULAR VOLUME 84.1 fl (80.0-96.0); MONO # 0.8 K/mm3 (0.0-0.8); MONO % 7.4 % (0.0-5.0); NEUTROPHILS # 7.9 K/mm3 (1.8-7.7); NEUTROPHILS % 71.8 % (36.0-66.0); PLATELET COUNT, AUTOMATED 353 k/mm3 (150-450); RED CELL DISTRIBUTION WIDTH 14.3 % (11.5-14.5)
[2016-09-03 06:24] LABS: ALBUMIN 2.6 GM/DL (3.2-5.2); ALBUMIN/GLOBULIN RATIO 0.7 (1.00-1.93); BILIRUBIN,TOTAL 0.4 MG/DL (0.2-1.0); CALCIUM LEVEL 8.4 MG/DL (8.8-10.2); CREATININE FOR GFR 1.22 MG/DL (0.55-1.02); GLOMERULAR FILTRATION RATE 45.3 (>39); MAGNESIUM LEVEL 1.9 MG/DL (1.8-2.4); POTASSIUM SERUM 3.9 MEQ/L (3.5-5.1); TOTAL PROTEIN 6.3 GM/DL (6.4-8.2)
[2016-09-03] MEDS: ALBUTEROL SULFATE 2.5 MG/0.5 ML INH NEB SOLN NEB SCH ×4 (07:18→20:03)
[2016-09-03] MEDS: TIOTROPIUM INHALER/CAPSULE (SPIRIVA) INH SCH (07:18)
[2016-09-03 07:30] VITALS: BP 140/63
[2016-09-03] MEDS: BREO ELLIPTA 200/25 (PATIENT'S OWN MED) INH SCH (08:39)
[2016-09-03] MEDS: diltiaZEM **CD** 180 MG CAP PO SCH (08:46)
[2016-09-03] MEDS: MULTIVITAMINS/MINERALS THERAP 1 TAB PO SCH (08:46)
[2016-09-03] MEDS: OMEPRAZOLE 20 MG CAP PO SCH (08:46)
[2016-09-03] MEDS: APIXABAN 5 MG TAB (ELIQUIS) PO SCH ×2 (08:46→17:34)
[2016-09-03] MEDS: ASPIRIN 81 MG ENTERIC TAB PO SCH (08:46)
[2016-09-03] MEDS: HumaLOG INSULIN (NovoLOG) PER UNIT SC SCH ×4 (08:47→20:50)
--- NOTE | 2016-09-03 09:16 | IPNPDOC ---
Subjective Date Seen The patient was seen on 09/03/16. Subjective Chief Complaint/HPI The patient is a 81-year-old female admitted with a reason for visit of Dyspnea. Events since last encounter Breathing significantly improved after bronch yesterday. Still with cough. Fatigued - making it hard to raise sputum Constitutional: Denies: Chills, Fever Pulmonary: Reports: Cough, Dyspnea (improved) Cardiovascular: Denies: Chest Pain, Palpitations Gastrointestinal: Denies: Abdominal Pain, Constipation, Diarrhea, Nausea, Vomiting Objective Physical Examination General Exam: Positive: Alert, Mild Distress Eye Exam: Positive: Conjunctiva & lids normal, EOMI, PERRLA, Negative: Sclera icteric Neck Exam: Positive: Supple, Negative: JVD, thyromegaly Chest Exam: Positive: Diminished (decreased BS right lung base c/w left. Crackles right lung base) Heart Exam: Positive: Normal S1, Normal S2, Rate Normal, Regular Rhythm, Negative: Murmurs, Rubs Abdomen Exam: Positive: Normal bowel sounds, Soft, Negative: Hepatospenomegaly, Tenderness Extremity Exam: Positive: Normal pulses, Negative: Clubbing, Cyanosis, Edema Skin Exam: Positive: Nl turgor and temperature, Negative: Breakdown, Rash Neuro Exam: Positive: Normal Speech Psych Exam: Positive: Mental status NL, Mood NL, Oriented x 3 Assessment /Plan Problems (1) COPD with acute exacerbation Status: Acute Problem Text: 09/02 - Pulmonary following. Had bronchoscopy with transbronchoscopic washing and retrieval of mucous, yesterday. Pt states Dr Bermeo plans for another bronchoscopy today. On Vanco and Meropenem. On Nebs , Breo, Spiriva. On Supp O2 at 10 L. + MRSA in sputum last admission. Will eval repeat sputum cx. Oxygenation with face mask. maintain oxygen saturations 88-92% 09/03 - s/p bronch # 2 yesterday with washing and retrieval of mucous. Resp status improved. Repeat cultures sent On Vanco and Meropenem currently (Bronchial wash 09/01 grew few E.Coli and Mod StaphAureus) (2) Atrial fibrillation, chronic Status: Chronic Problem Text: Follows with [facility]. Eliquis bid. Home Cardizem dosing continued. (3) Obstructive sleep apnea Status: Chronic Problem Text: no CPAP use at home. (4) Coronary arteriosclerosis Status: Chronic (5) Diabetes mellitus Status: Chronic Response to Treatment: Stable Problem Specific Plan: Monitor Clinically (6) Hypothyroidism Status: Chronic Response to Treatment: Stable Problem Specific Plan: Monitor Clinically (7) Chest wall pain Status: Acute Problem Text: Secondary to coughing, respiratory abnormalities. K-pad prn. Tylenol prn. Hydrocodone prn. (8) Diastolic CHF, chronic Permanent Comment: ECHO 04/2016: LVEF 75% Borderline concentric left ventricle hypertrophy with hyperkinetic wall motion. Mildly dilated left atrium with Doppler evidence of impairment of LV diastolic function but current estimated mean left atrial pressure upper limits of normal to slightly increased. Mildly dilated right heart chambers with Doppler evidence of at least moderate pulmonary hypertension. Inferior vena cava (IVC) upper limits of normal with normal respiratory collapse against an elevated central venous pressure at this time. Mild calcific aortic stenosis with very mild insufficiency. Moderately severe mitral annular calcification without inflow tract obstruction and only mild eccentric insufficiency. Last Edited By: Karla Garcia NP on Sep 01, 2016 08:56 Status: Chronic Problem Specific Plan: Monitor Clinically Plan/VTE VTE Prophylaxis Ordered?: Yes (Eliquis) Plan/Urinary Catheter Reason for insertion/continuin: Acute obstruct/retention Plan Diet: Advance Activity: Continue Current Diagnostics: Repeat Labs in AM Attending attestation: I saw and evaluated the patient, and agree with plan of care as discussed and documented by Oscar Ortez. Tori Quiroz MD VS, I&O, 24H, [facility] Vital Signs/I&O Vital Signs Date Time Temp Pulse Resp B/P Pulse Ox O2 Delivery O2 Flow Rate FiO2 09/03/16 08:46 69 140/63 09/03/16 08:02 Nasal Cannula 4.0 09/03/16 07:30 99.1 18 97 09/01/16 12:05 50 I&O- Last 24 Hours up to 6 AM 09/03/16 06:00 Intake Total 1730 ml Output Total 1375 ml Balance 355 ml Laboratory Data 24H LABS Laboratory Tests 2 09/03/16 02:52: Vancomycin Level Trough 11.9 09/03/16 05:38: Blood Urea Nitrogen 19H, Creatinine 1.22H, Sodium Level 140, Potassium Level 3.9 , Chloride Level 101, Carbon Dioxide Level 32, Calcium Level 8.4L, Aspartate Amino Transf (AST/SGOT) 16, Alanine Aminotransferase (ALT/SGPT) 15, Alkaline Phosphatase 55, Total Bilirubin 0.4, Total Protein 6.3L, Albumin 2.6L, Albumin/ Globulin Ratio 0.70L, Anion Gap 7L, White Blood Count 11.0H, Red Blood Count 3.06L, Hemoglobin 8.0L, Hematocrit 25.8L, Mean Corpuscular Volume 84.1, Mean Corpuscular Hemoglobin 26.0L, Mean Corpuscular Hemoglobin Concent 30.9L, Red Cell Distribution Width 14.3, Platelet Count 353, Neutrophils (%) (Auto) 71.8H, Lymphocytes (%) (Auto) 13.7L, Monocytes (%) (Auto) 7.4H, Eosinophils (%) (Auto) 4.9H, Basophils (%) (Auto) 0.3, Neutrophils # (Auto) 7.9H, Lymphocytes # (Auto) 1.7, Monocytes # (Auto) 0.8, Eosinophils # (Auto) 0.5, Basophils # (Auto) 0.0, Glomerular Filtration Rate 45.3, Large Unclassified Cells # 0.2, Large Unclassified Cells % 1.9, Magnesium Level 1.9 CBC/BMP Laboratory Tests 09/03/16 05:38 Calcium Level 8.4 L, Aspartate Amino Transf (AST/SGOT) 16, Alanine Aminotransferase (ALT/SGPT) 15, Alkaline Phosphatase 55, Total Bilirubin 0.4, Total Protein 6.3 L, Albumin 2.6 L, Red Blood Count 3.06 L, Mean Corpuscular Volume 84.1, Mean Corpuscular Hemoglobin 26.0 L, Mean Corpuscular Hemoglobin Concent 30.9 L, Red Cell Distribution Width 14.3, Neutrophils (%) (Auto) 71.8 H , Lymphocytes (%) (Auto) 13.7 L, Monocytes (%) (Auto) 7.4 H, Eosinophils (%) ( Auto) 4.9 H, Basophils (%) (Auto) 0.3, Neutrophils # (Auto) 7.9 H, Lymphocytes # (Auto) 1.7, Monocytes # (Auto) 0.8, Eosinophils # (Auto) 0.5, Basophils # ( Auto) 0.0 Microbiology Microbiology 09/01/16 Blood Culture - Preliminary, Resulted No Growth after 48 hours. All Specime... 08/31/16 Blood Culture - Preliminary, Resulted 09/02/16 Gram Stain - Final, Resulted 09/02/16 Bronchial Aspirate Culture, Resulted Pending 09/01/16 Gram Stain - Final, Complete 09/01/16 Bronchial Aspirate Culture - Final, Complete Escherichia Coli Staphylococcus Aureus 09/01/16 Respiratory Virus Panel (PCR) ([facility]) - Final, Complete 09/01/16 Urine Culture - Final, Complete OSCAR ORTEZ PA-C Sep 03, 2016 09:16 TORI QUIROZ MD Sep 03, 2016 18:15
[2016-09-03] MEDS: MIRALAX *UNIT DOSE* 17GM PACKET PO SCH (10:20)
[2016-09-03] MEDS: ACETAMINOPHEN TAB 650MG DOSE (2X325MG) PO PRN ×2 (11:04→23:29)
[2016-09-03 11:30] VITALS: BP 136/52
[2016-09-03] MEDS: ACETYLCYSTEINE 20% 4 ML VIAL (200MG/ML) INH SCH ×2 (11:39→20:03)
[2016-09-03] MEDS: AMIODARONE 200 MG TAB (PACERONE) PO SCH (11:57)
[2016-09-03] MEDS: LOSARTAN 25 MG TAB PO SCH (11:58)
[2016-09-03 15:58] VITALS: BP 130/60
[2016-09-03] MEDS: ATORVASTATIN 20 MG TAB PO SCH (17:34)
[2016-09-03] MEDS: SENNA 8.6 MG TAB (SENOKOT) PO SCH (17:34)
[2016-09-03 20:00] VITALS: BP 139/62
[2016-09-03] MEDS: zolPIDEM TARTRATE 5 MG TAB PO SCH (20:57)
[2016-09-03] MEDS ORDERED: VANCOMYCIN HCL 1,000 MG, VIAL MATE ADAPTER 1 EACH in D5W 250 ML IV SCH (21:00)
[2016-09-03] MEDS: ALBUTEROL SULFATE 2.5 MG/0.5 ML INH NEB SOLN NEB PRN (22:17)
[2016-09-03 23:55] VITALS: BP 170/68
[2016-09-04] VITALS (8 sets, daily range): BP systolic 117–164; BP diastolic 58–69
[2016-09-04] MEDS: ALBUTEROL SULFATE 2.5 MG/0.5 ML INH NEB SOLN NEB PRN (04:11)
[2016-09-04] MEDS: LEVOTHYROXINE 0.075 MG TAB (75 MCG) PO SCH (04:59)
[2016-09-04] MEDS: MEROPENEM INJ 500 MG in D5W MINI-BAG PLUS 100 ML IV SCH ×2 (04:59→18:01)
[2016-09-04 06:32] LABS: BASO % 0.4 % (0.0-1.0); EOS # 0.6 K/mm3 (0.0-0.50); EOS % 6.9 % (0.0-3.0); LARGE UNSTAINED CELL # 0.2 K/mm3 (0.0-0.4); LARGE UNSTAINED CELL % 2.2 % (0.0-4.0); LYMPH # 1.6 K/mm3 (1.5-4.5); LYMPH % 16.5 % (24.0-44.0); MEAN CORPUSCULAR HEMOGLOBIN 25.9 pg (27.0-33.0); MEAN CORPUSCULAR HGB CONC 30.7 g/dl (32.0-36.5); MEAN CORPUSCULAR VOLUME 84.4 fl (80.0-96.0); MONO # 0.6 K/mm3 (0.0-0.8); MONO % 6.5 % (0.0-5.0); NEUTROPHILS # 5.9 K/mm3 (1.8-7.7); NEUTROPHILS % 67.6 % (36.0-66.0); PLATELET COUNT, AUTOMATED 382 k/mm3 (150-450); RED CELL DISTRIBUTION WIDTH 14.5 % (11.5-14.5); WHITE BLOOD COUNT 8.8 K/mm3 (4.0-10.0)
[2016-09-04 06:48] LABS: ALBUMIN 2.6 GM/DL (3.2-5.2); ALBUMIN/GLOBULIN RATIO 0.68 (1.00-1.93); BILIRUBIN,TOTAL 0.3 MG/DL (0.2-1.0); CALCIUM LEVEL 8.5 MG/DL (8.8-10.2); CREATININE FOR GFR 0.98 MG/DL (0.55-1.02); GLOMERULAR FILTRATION RATE 58.3 (>39); MAGNESIUM LEVEL 2.3 MG/DL (1.8-2.4); POTASSIUM SERUM 4.3 MEQ/L (3.5-5.1); TOTAL PROTEIN 6.4 GM/DL (6.4-8.2)
[2016-09-04] MEDS: TIOTROPIUM INHALER/CAPSULE (SPIRIVA) INH SCH (07:14)
[2016-09-04] MEDS: ALBUTEROL SULFATE 2.5 MG/0.5 ML INH NEB SOLN NEB SCH ×4 (07:15→19:26)
[2016-09-04] MEDS: BREO ELLIPTA 200/25 (PATIENT'S OWN MED) INH SCH (07:15)
[2016-09-04] MEDS: ACETYLCYSTEINE 20% 4 ML VIAL (200MG/ML) INH SCH ×2 (07:15→19:27)
[2016-09-04] MEDS: ASPIRIN 81 MG ENTERIC TAB PO SCH (08:09)
[2016-09-04] MEDS: HumaLOG INSULIN (NovoLOG) PER UNIT SC SCH ×4 (08:09→21:00)
[2016-09-04] MEDS: APIXABAN 5 MG TAB (ELIQUIS) PO SCH ×2 (08:09→18:01)
[2016-09-04] MEDS: MULTIVITAMINS/MINERALS THERAP 1 TAB PO SCH (08:09)
[2016-09-04] MEDS: OMEPRAZOLE 20 MG CAP PO SCH (08:09)
[2016-09-04] MEDS: diltiaZEM **CD** 180 MG CAP PO SCH (08:10)
[2016-09-04] MEDS: MIRALAX *UNIT DOSE* 17GM PACKET PO SCH (08:10)
--- NOTE | 2016-09-04 08:49 | IPNPDOC ---
Subjective Date Seen The patient was seen on 09/04/16. Subjective Chief Complaint/HPI The patient is a 81-year-old female admitted with a reason for visit of Dyspnea. Events since last encounter Still tired. Rib/abd muscle pain with coughing. Less dyspnea Constitutional: Denies: Chills, Fever Pulmonary: Reports: Cough, Dyspnea Cardiovascular: Reports: Chest Pain (muskuloskeletal rib pain from coughing), Denies: Palpitations Gastrointestinal: Denies: Abdominal Pain, Constipation, Diarrhea, Nausea, Vomiting Objective Physical Examination General Exam: Positive: Alert, Mild Distress Eye Exam: Positive: Conjunctiva & lids normal, EOMI, PERRLA, Negative: Sclera icteric Neck Exam: Positive: Supple, Negative: JVD, thyromegaly Chest Exam: Positive: Diminished (decreased BS right lung base c/w left. Crackles right lung base, Left CTA) Heart Exam: Positive: Murmurs (CHINO right base), Normal S1, Normal S2, Rate Normal, Regular Rhythm, Negative: Rubs Abdomen Exam: Positive: Normal bowel sounds, Soft, Negative: Hepatospenomegaly, Tenderness Extremity Exam: Positive: Normal pulses, Negative: Clubbing, Cyanosis, Edema Skin Exam: Positive: Nl turgor and temperature, Negative: Breakdown, Rash Neuro Exam: Positive: Normal Speech Psych Exam: Positive: Mental status NL, Mood NL, Oriented x 3 Assessment /Plan Problems (1) COPD with acute exacerbation Status: Acute Problem Text: 09/02 - Pulmonary following. Had bronchoscopy with transbronchoscopic washing and retrieval of mucous, yesterday. Pt states Dr Bermeo plans for another bronchoscopy today. On Vanco and Meropenem. On Nebs , Breo, Spiriva. On Supp O2 at 10 L. + MRSA in sputum last admission. Will eval repeat sputum cx. Oxygenation with face mask. maintain oxygen saturations 88-92% 09/03 - s/p bronch # 2 yesterday with washing and retrieval of mucous. Resp status improved. Repeat cultures sent On Vanco and Meropenem currently (Bronchial wash 09/01 grew few E.Coli and Mod StaphAureus) 09/04 - f/u bronch washingspending. Cont. Vano and Meropenem for now Encourage ambulation. PT ordered/ D/C home once strength improves some and safe for discharge (2) Atrial fibrillation, chronic Status: Chronic Problem Text: Follows with [facility]. Eliquis bid. Home Cardizem dosing continued. 09/04 - rate controlled (3) Obstructive sleep apnea Status: Chronic Problem Text: no CPAP use at home. (4) Coronary arteriosclerosis Status: Chronic (5) Diabetes mellitus Status: Chronic Response to Treatment: Stable Problem Specific Plan: Monitor Clinically Problem Text: Blood sugars controlled (6) Hypothyroidism Status: Chronic Response to Treatment: Stable Problem Specific Plan: Monitor Clinically (7) Chest wall pain Status: Acute Problem Text: Secondary to coughing, respiratory abnormalities. K-pad prn. Tylenol prn. Hydrocodone prn. (8) Diastolic CHF, chronic Permanent Comment: ECHO 04/2016: LVEF 75% Borderline concentric left ventricle hypertrophy with hyperkinetic wall motion. Mildly dilated left atrium with Doppler evidence of impairment of LV diastolic function but current estimated mean left atrial pressure upper limits of normal to slightly increased. Mildly dilated right heart chambers with Doppler evidence of at least moderate pulmonary hypertension. Inferior vena cava (IVC) upper limits of normal with normal respiratory collapse against an elevated central venous pressure at this time. Mild calcific aortic stenosis with very mild insufficiency. Moderately severe mitral annular calcification without inflow tract obstruction and only mild eccentric insufficiency. Last Edited By: Karla Garcia NP on Sep 01, 2016 08:56 Status: Chronic Problem Specific Plan: Monitor Clinically (9) Constipation Status: Acute Problem Text: Add further bowel care Plan/VTE VTE Prophylaxis Ordered?: Yes (Eliquis) Plan/Urinary Catheter Reason for insertion/continuin: Acute obstruct/retention Plan Diet: Advance Activity: Continue Current Diagnostics: Repeat Labs in AM VS, I&O, 24H, [facility] Vital Signs/I&O Vital Signs Date Time Temp Pulse Resp B/P Pulse Ox O2 Delivery O2 Flow Rate FiO2 09/04/16 04:00 Nasal Cannula 3.0 09/04/16 04:00 97.4 60 18 158/69 96 09/01/16 12:05 50 I&O- Last 24 Hours up to 6 AM 09/04/16 06:00 Intake Total 1980 ml Output Total 725 ml Balance 1255 ml Laboratory Data 24H LABS Laboratory Tests 2 09/03/16 11:27: Bedside Glucose (Misc Panel) 163H 09/03/16 17:09: Bedside Glucose (Misc Panel) 221H 09/03/16 20:39: Bedside Glucose (Misc Panel) 174H 09/04/16 05:52: Blood Urea Nitrogen 16, Creatinine 0.98, Sodium Level 139, Potassium Level 4.3, Chloride Level 102, Carbon Dioxide Level 32, Calcium Level 8.5L, Aspartate Amino Transf (AST/SGOT) 20, Alanine Aminotransferase (ALT/SGPT) 20, Alkaline Phosphatase 61, Total Bilirubin 0.3, Total Protein 6.4, Albumin 2.6L, Albumin/ Globulin Ratio 0.68L, Anion Gap 5L, White Blood Count 8.8, Red Blood Count 3.12L , Hemoglobin 8.1L, Hematocrit 26.3L, Mean Corpuscular Volume 84.4, Mean Corpuscular Hemoglobin 25.9L, Mean Corpuscular Hemoglobin Concent 30.7L, Red Cell Distribution Width 14.5, Platelet Count 382, Neutrophils (%) (Auto) 67.6H, Lymphocytes (%) (Auto) 16.5L, Monocytes (%) (Auto) 6.5H, Eosinophils (%) (Auto) 6.9H, Basophils (%) (Auto) 0.4, Neutrophils # (Auto) 5.9, Lymphocytes # (Auto) 1.6, Monocytes # (Auto) 0.6, Eosinophils # (Auto) 0.6H, Basophils # (Auto) 0.0, Glomerular Filtration Rate 58.3, Large Unclassified Cells # 0.2, Large Unclassified Cells % 2.2, Magnesium Level 2.3 CBC/BMP Laboratory Tests 09/04/16 05:52 Calcium Level 8.5 L, Aspartate Amino Transf (AST/SGOT) 20, Alanine Aminotransferase (ALT/SGPT) 20, Alkaline Phosphatase 61, Total Bilirubin 0.3, Total Protein 6.4, Albumin 2.6 L, Red Blood Count 3.12 L, Mean Corpuscular Volume 84.4, Mean Corpuscular Hemoglobin 25.9 L, Mean Corpuscular Hemoglobin Concent 30.7 L, Red Cell Distribution Width 14.5, Neutrophils (%) (Auto) 67.6 H , Lymphocytes (%) (Auto) 16.5 L, Monocytes (%) (Auto) 6.5 H, Eosinophils (%) ( Auto) 6.9 H, Basophils (%) (Auto) 0.4, Neutrophils # (Auto) 5.9, Lymphocytes # ( Auto) 1.6, Monocytes # (Auto) 0.6, Eosinophils # (Auto) 0.6 H, Basophils # (Auto ) 0.0 Microbiology Microbiology 09/01/16 Blood Culture - Preliminary, Resulted No Growth after 72 hours. All specime... 08/31/16 Blood Culture - Final, Complete Micrococcus Luteus 09/02/16 Gram Stain - Final, Resulted 09/02/16 Bronchial Aspirate Culture, Resulted Pending 09/01/16 Gram Stain - Final, Complete 09/01/16 Bronchial Aspirate Culture - Final, Complete Escherichia Coli Staphylococcus Aureus 09/01/16 Respiratory Virus Panel (PCR) ([facility]) - Final, Complete 09/01/16 Urine Culture - Final, Complete OSCAR ORTEZ PA-C Sep 04, 2016 08:48
[2016-09-04] MEDS: MOM 30ML SUSPENSION UDC PO SCH (09:00)
[2016-09-04] MEDS ORDERED: ONDANSETRON 4 MG TAB (S0181) PO PRN (09:15)
[2016-09-04] MEDS: AMIODARONE 200 MG TAB (PACERONE) PO SCH (12:11)
[2016-09-04] MEDS: LOSARTAN 25 MG TAB PO SCH (12:11)
[2016-09-04] MEDS: SENNA 8.6 MG TAB (SENOKOT) PO SCH (18:01)
[2016-09-04] MEDS: ATORVASTATIN 20 MG TAB PO SCH (18:01)
[2016-09-04] MEDS: zolPIDEM TARTRATE 5 MG TAB PO SCH (20:59)
[2016-09-05] MEDS: ALBUTEROL SULFATE 2.5 MG/0.5 ML INH NEB SOLN NEB PRN ×2 (00:11→03:26)
[2016-09-05] MEDS ORDERED: FLEET OIL RETENTION ENEMA PR PRN (01:45)
[2016-09-05 04:45] VITALS: BP 133/61
[2016-09-05 05:37] LABS: BASO % 0.4 % (0.0-1.0); EOS # 0.6 K/mm3 (0.0-0.50); EOS % 6.3 % (0.0-3.0); LARGE UNSTAINED CELL # 0.2 K/mm3 (0.0-0.4); LARGE UNSTAINED CELL % 2.4 % (0.0-4.0); LYMPH # 1.6 K/mm3 (1.5-4.5); LYMPH % 15.8 % (24.0-44.0); MEAN CORPUSCULAR HGB CONC 30.7 g/dl (32.0-36.5); MEAN CORPUSCULAR VOLUME 81.5 fl (80.0-96.0); MONO # 0.6 K/mm3 (0.0-0.8); MONO % 6.2 % (0.0-5.0); NEUTROPHILS # 6.8 K/mm3 (1.8-7.7); NEUTROPHILS % 68.9 % (36.0-66.0); PLATELET COUNT, AUTOMATED 365 k/mm3 (150-450); RED CELL DISTRIBUTION WIDTH 14.5 % (11.5-14.5); WHITE BLOOD COUNT 9.9 K/mm3 (4.0-10.0)
[2016-09-05] MEDS: LEVOTHYROXINE 0.075 MG TAB (75 MCG) PO SCH (05:55)
[2016-09-05] MEDS: MEROPENEM INJ 500 MG in D5W MINI-BAG PLUS 100 ML IV SCH ×2 (05:55→17:50)
[2016-09-05 05:56] LABS: ALBUMIN 2.7 GM/DL (3.2-5.2); ALBUMIN/GLOBULIN RATIO 0.75 (1.00-1.93); BILIRUBIN,TOTAL 0.3 MG/DL (0.2-1.0); CALCIUM LEVEL 8.7 MG/DL (8.8-10.2); CREATININE FOR GFR 1.06 MG/DL (0.55-1.02); GLOMERULAR FILTRATION RATE 53.2 (>39); MAGNESIUM LEVEL 2.4 MG/DL (1.8-2.4); POTASSIUM SERUM 4.7 MEQ/L (3.5-5.1); TOTAL PROTEIN 6.3 GM/DL (6.4-8.2)
[2016-09-05] MEDS: ALBUTEROL SULFATE 2.5 MG/0.5 ML INH NEB SOLN NEB SCH ×4 (07:19→19:31)
[2016-09-05] MEDS: TIOTROPIUM INHALER/CAPSULE (SPIRIVA) INH SCH (07:19)
[2016-09-05] MEDS: ACETYLCYSTEINE 20% 4 ML VIAL (200MG/ML) INH SCH ×2 (07:20→19:31)
[2016-09-05 08:00] VITALS: BP 145/64
[2016-09-05] MEDS: HumaLOG INSULIN (NovoLOG) PER UNIT SC SCH ×4 (08:25→20:42)
[2016-09-05] MEDS: MIRALAX *UNIT DOSE* 17GM PACKET PO SCH (08:25)
[2016-09-05] MEDS: MULTIVITAMINS/MINERALS THERAP 1 TAB PO SCH (08:26)
[2016-09-05] MEDS: APIXABAN 5 MG TAB (ELIQUIS) PO SCH ×2 (08:26→17:46)
[2016-09-05] MEDS: diltiaZEM **CD** 180 MG CAP PO SCH (08:26)
[2016-09-05] MEDS: OMEPRAZOLE 20 MG CAP PO SCH (08:26)
[2016-09-05] MEDS: ASPIRIN 81 MG ENTERIC TAB PO SCH (08:26)
--- NOTE | 2016-09-05 08:41 | REP ---
Clinical: Chest pain. Mucous plugging. Comparison: 09/02/2016. Findings: A small/moderate new right pleural effusion with right basilar atelectasis is appreciated. The moderate left pleural effusion and lower lobe atelectasis is mildly improved. Visualized mediastinum and cardiac silhouette stable. No pneumothorax. Skeletal structures intact. Impression: New small to moderate right pleural effusion with basilar atelectasis. Moderate left pleural effusion with basilar atelectasis mildly improved. Signed by Thien Mendez MD 09/05/2016 08:32 A
--- NOTE | 2016-09-05 10:49 | IPNPDOC ---
Subjective Date Seen The patient was seen on 09/05/16. Subjective Chief Complaint/HPI The patient is a 81-year-old female admitted with a reason for visit of Dyspnea. Events since last encounter Breathing feels better today. NO new complaints Constitutional: Denies: Chills, Fever Pulmonary: Reports: Cough (improving), Dyspnea (chronic but improved since admission) Cardiovascular: Denies: Chest Pain, Orthopnea, Palpitations Gastrointestinal: Denies: Abdominal Pain, Constipation, Diarrhea, Nausea, Vomiting Objective Physical Examination General Exam: Positive: Alert, Mild Distress Eye Exam: Positive: Conjunctiva & lids normal, EOMI, PERRLA, Negative: Sclera icteric Neck Exam: Positive: Supple, Negative: JVD, thyromegaly Chest Exam: Positive: Diminished (decreased BS right lung base c/w left. Crackles right lung base, Left CTA) Heart Exam: Positive: Murmurs (CHINO right base), Normal S1, Normal S2, Rate Normal, Regular Rhythm, Negative: Rubs Abdomen Exam: Positive: Normal bowel sounds, Soft, Negative: Hepatospenomegaly, Tenderness Extremity Exam: Positive: Normal pulses, Negative: Clubbing, Cyanosis, Edema Skin Exam: Positive: Nl turgor and temperature, Negative: Breakdown, Rash Neuro Exam: Positive: Normal Speech Psych Exam: Positive: Mental status NL, Mood NL, Oriented x 3 Assessment /Plan Problems (1) COPD with acute exacerbation Status: Acute Problem Text: 09/02 - Pulmonary following. Had bronchoscopy with transbronchoscopic washing and retrieval of mucous, yesterday. Pt states Dr Bermeo plans for another bronchoscopy today. On Vanco and Meropenem. On Nebs , Breo, Spiriva. On Supp O2 at 10 L. + MRSA in sputum last admission. Will eval repeat sputum cx. Oxygenation with face mask. maintain oxygen saturations 88-92% 09/03 - s/p bronch # 2 yesterday with washing and retrieval of mucous. Resp status improved. Repeat cultures sent On Vanco and Meropenem currently (Bronchial wash 09/01 grew few E.Coli and Mod StaphAureus) 09/04 - f/u bronch washings pending. Cont. Vano and Meropenem for now Encourage ambulation. PT ordered/ D/C home once strength improves some and safe for discharge 09/05 - Repeat brocnh 3/20 - washings still pending. On Meropenemn d# 5, Vanco d /c'd after 3 days continue to encourage ambulation Refused Pt yesterday, but I have encouraged her to participate today (2) JASPAL (obstructive sleep apnea) Status: Chronic Problem Text: She had not been using her CPAP at home. Dr. Bermeo had her bring in her machine and respiratory will be working with her to get it up and running for tonight She will hopefully go home on her CPAP and may need f/u NPSG as outpatient depending on how she does tonight (3) Diastolic CHF, chronic Permanent Comment: ECHO 04/2016: LVEF 75% Borderline concentric left ventricle hypertrophy with hyperkinetic wall motion. Mildly dilated left atrium with Doppler evidence of impairment of LV diastolic function but current estimated mean left atrial pressure upper limits of normal to slightly increased. Mildly dilated right heart chambers with Doppler evidence of at least moderate pulmonary hypertension. Inferior vena cava (IVC) upper limits of normal with normal respiratory collapse against an elevated central venous pressure at this time. Mild calcific aortic stenosis with very mild insufficiency. Moderately severe mitral annular calcification without inflow tract obstruction and only mild eccentric insufficiency. Last Edited By: Karla Garcia NP on Sep 01, 2016 08:56 Status: Chronic Problem Specific Plan: Monitor Clinically Problem Text: 09/05 - She was on Lasix 40 mg daily at home and traditionally develops lower extremity edema without diuretics, however Dr. Bermeo would like to hold off on diuretic at this time due to likelihood that this contributes to thickening of her secretions and increases risk of recurrent mucous plugging (4) Anemia Status: Chronic Problem Text: Hgb down slightly from baseline Dr. Bermeo does not think transfusion is indicated at this point Also additional volume from transfusion may exacerbate her breathing issues since she does have some pleural effusions on CXR already (5) Atrial fibrillation, chronic Status: Chronic Problem Text: Follows with [facility]. Eliquis bid. Home Cardizem dosing continued. 09/04 - rate controlled 09/05 - rate controlled (6) Coronary arteriosclerosis Status: Chronic (7) Diabetes mellitus Status: Chronic Response to Treatment: Stable Problem Specific Plan: Monitor Clinically Problem Text: Blood sugars controlled (8) Hypothyroidism Status: Chronic Response to Treatment: Stable Problem Specific Plan: Monitor Clinically (9) Chest wall pain Status: Acute Problem Text: Secondary to coughing, respiratory abnormalities. K-pad prn. Tylenol prn. Hydrocodone prn. (10) Constipation Status: Acute Problem Text: Add further bowel care Plan/VTE VTE Prophylaxis Ordered?: Yes (Eliquis) Plan/Urinary Catheter Reason for insertion/continuin: Acute obstruct/retention Plan Diet: Advance Activity: Continue Current Diagnostics: Repeat Labs in AM VS, I&O, 24H, Fishbone Vital Signs/I&O Vital Signs Date Time Temp Pulse Resp B/P Pulse Ox O2 Delivery O2 Flow Rate FiO2 09/05/16 08:26 61 145/64 09/05/16 08:10 Nasal Cannula 3.0 09/05/16 08:00 97.6 19 92 09/01/16 12:05 50 I&O- Last 24 Hours up to 6 AM 09/05/16 05:59 Intake Total 1420 ml Output Total 800 ml Balance 620 ml Laboratory Data 24H LABS Laboratory Tests 2 09/04/16 12:04: Bedside Glucose (Misc Panel) 141H 09/04/16 17:49: Bedside Glucose (Misc Panel) 163H 09/04/16 20:50: Bedside Glucose (Misc Panel) 151H 09/05/16 05:16: Blood Urea Nitrogen 16, Creatinine 1.06H, Sodium Level 137, Potassium Level 4.7 , Chloride Level 100, Carbon Dioxide Level 32, Calcium Level 8.7L, Aspartate Amino Transf (AST/SGOT) 40H, Alanine Aminotransferase (ALT/SGPT) 38, Alkaline Phosphatase 71, Total Bilirubin 0.3, Total Protein 6.3L, Albumin 2.7L, Albumin/ Globulin Ratio 0.75L, Anion Gap 5L, White Blood Count 9.9, Red Blood Count 3.21L , Hemoglobin 8.0L, Hematocrit 26.1L, Mean Corpuscular Volume 81.5, Mean Corpuscular Hemoglobin 25.0L, Mean Corpuscular Hemoglobin Concent 30.7L, Red Cell Distribution Width 14.5, Platelet Count 365, Neutrophils (%) (Auto) 68.9H, Lymphocytes (%) (Auto) 15.8L, Monocytes (%) (Auto) 6.2H, Eosinophils (%) (Auto) 6.3H, Basophils (%) (Auto) 0.4, Neutrophils # (Auto) 6.8, Lymphocytes # (Auto) 1.6, Monocytes # (Auto) 0.6, Eosinophils # (Auto) 0.6H, Basophils # (Auto) 0.0, Glomerular Filtration Rate 53.2, Large Unclassified Cells # 0.2, Large Unclassified Cells % 2.4, Magnesium Level 2.4 CBC/BMP Laboratory Tests 09/05/16 05:16 Calcium Level 8.7 L, Aspartate Amino Transf (AST/SGOT) 40 H, Alanine Aminotransferase (ALT/SGPT) 38, Alkaline Phosphatase 71, Total Bilirubin 0.3, Total Protein 6.3 L, Albumin 2.7 L, Red Blood Count 3.21 L, Mean Corpuscular Volume 81.5, Mean Corpuscular Hemoglobin 25.0 L, Mean Corpuscular Hemoglobin Concent 30.7 L, Red Cell Distribution Width 14.5, Neutrophils (%) (Auto) 68.9 H , Lymphocytes (%) (Auto) 15.8 L, Monocytes (%) (Auto) 6.2 H, Eosinophils (%) ( Auto) 6.3 H, Basophils (%) (Auto) 0.4, Neutrophils # (Auto) 6.8, Lymphocytes # ( Auto) 1.6, Monocytes # (Auto) 0.6, Eosinophils # (Auto) 0.6 H, Basophils # (Auto ) 0.0 Microbiology Microbiology 09/01/16 Blood Culture - Preliminary, Resulted No Growth after 72 hours. All specime... 08/31/16 Blood Culture - Final, Complete Micrococcus Luteus 09/02/16 Gram Stain - Final, Resulted 09/02/16 Bronchial Aspirate Culture, Resulted Pending 09/01/16 Gram Stain - Final, Complete 09/01/16 Bronchial Aspirate Culture - Final, Complete Escherichia Coli Staphylococcus Aureus 09/01/16 Respiratory Virus Panel (PCR) ([facility]) - Final, Complete 09/01/16 Urine Culture - Final, Complete OSCAR ORTEZ PA-C Sep 05, 2016 10:49
[2016-09-05] MEDS: BREO ELLIPTA 200/25 (PATIENT'S OWN MED) INH SCH (11:45)
[2016-09-05 12:00] VITALS: BP 141/64
[2016-09-05] MEDS: MOM 30ML SUSPENSION UDC PO SCH (12:33)
[2016-09-05] MEDS: AMIODARONE 200 MG TAB (PACERONE) PO SCH (12:35)
[2016-09-05] MEDS: LOSARTAN 25 MG TAB PO SCH (12:35)
[2016-09-05 16:00] VITALS: BP 128/65
[2016-09-05] MEDS: ATORVASTATIN 20 MG TAB PO SCH (17:46)
[2016-09-05] MEDS ORDERED: SENNA 8.6 MG TAB (SENOKOT) PO SCH (18:00)
[2016-09-05 20:00] VITALS: BP 151/67
[2016-09-05] MEDS: zolPIDEM TARTRATE 5 MG TAB PO SCH (20:42)
[2016-09-05] MEDS: NORCO, ANEXSIA 5/325MG TABLET (HYDROcodone/ACETAMINOPHEN) PO PRN (23:15)
[2016-09-05 23:19] VITALS: BP 156/66
[2016-09-06] MEDS: ALBUTEROL SULFATE 2.5 MG/0.5 ML INH NEB SOLN NEB PRN (01:03)
[2016-09-06] MEDS ORDERED: BISACODYL 10 MG SUPP PR PRN (04:15)
[2016-09-06 04:45] VITALS: BP 150/77
[2016-09-06] MEDS: MEROPENEM INJ 500 MG in D5W MINI-BAG PLUS 100 ML IV SCH (05:32)
[2016-09-06] MEDS: LEVOTHYROXINE 0.075 MG TAB (75 MCG) PO SCH (05:32)
[2016-09-06 06:02] LABS: BASO % 0.4 % (0.0-1.0); EOS # 0.6 K/mm3 (0.0-0.50); EOS % 6.3 % (0.0-3.0); LARGE UNSTAINED CELL # 0.2 K/mm3 (0.0-0.4); LARGE UNSTAINED CELL % 2.5 % (0.0-4.0); LYMPH # 2.1 K/mm3 (1.5-4.5); LYMPH % 21.7 % (24.0-44.0); MEAN CORPUSCULAR HGB CONC 31.2 g/dl (32.0-36.5); MEAN CORPUSCULAR VOLUME 83.2 fl (80.0-96.0); MONO # 0.6 K/mm3 (0.0-0.8); MONO % 6.7 % (0.0-5.0); NEUTROPHILS # 5.5 K/mm3 (1.8-7.7); NEUTROPHILS % 62.4 % (36.0-66.0); PLATELET COUNT, AUTOMATED 403 k/mm3 (150-450); RED CELL DISTRIBUTION WIDTH 14.4 % (11.5-14.5); WHITE BLOOD COUNT 8.8 K/mm3 (4.0-10.0)
[2016-09-06 07:53] LABS: ALBUMIN 2.6 GM/DL (3.2-5.2); ALBUMIN/GLOBULIN RATIO 0.7 (1.00-1.93); BILIRUBIN,TOTAL 0.3 MG/DL (0.2-1.0); CALCIUM LEVEL 8.8 MG/DL (8.8-10.2); CREATININE FOR GFR 1.13 MG/DL (0.55-1.02); GLOMERULAR FILTRATION RATE 49.4 (>39); MAGNESIUM LEVEL 2.5 MG/DL (1.8-2.4); POTASSIUM SERUM 5.1 MEQ/L (3.5-5.1); TOTAL PROTEIN 6.3 GM/DL (6.4-8.2)
[2016-09-06 08:00] VITALS: BP 143/67
[2016-09-06] MEDS: BREO ELLIPTA 200/25 (PATIENT'S OWN MED) INH SCH (08:44)
[2016-09-06] MEDS: TIOTROPIUM INHALER/CAPSULE (SPIRIVA) INH SCH (08:44)
[2016-09-06] MEDS: ACETYLCYSTEINE 20% 4 ML VIAL (200MG/ML) INH SCH (08:46)
[2016-09-06] MEDS: ALBUTEROL SULFATE 2.5 MG/0.5 ML INH NEB SOLN NEB SCH ×2 (08:46→11:10)
[2016-09-06] MEDS: OMEPRAZOLE 20 MG CAP PO SCH (08:57)
[2016-09-06] MEDS: MOM 30ML SUSPENSION UDC PO SCH ×2 (08:57→09:00)
[2016-09-06] MEDS: MIRALAX *UNIT DOSE* 17GM PACKET PO SCH (08:57)
[2016-09-06] MEDS: ASPIRIN 81 MG ENTERIC TAB PO SCH (08:57)
[2016-09-06] MEDS: diltiaZEM **CD** 180 MG CAP PO SCH (08:58)
[2016-09-06] MEDS: APIXABAN 5 MG TAB (ELIQUIS) PO SCH (08:58)
[2016-09-06] MEDS: MULTIVITAMINS/MINERALS THERAP 1 TAB PO SCH (08:58)
[2016-09-06] MEDS: HumaLOG INSULIN (NovoLOG) PER UNIT SC SCH ×2 (08:58→12:07)
[2016-09-06 12:00] VITALS: BP 158/72
[2016-09-06 12:08] VITALS: BP 158/72
[2016-09-06] MEDS: LOSARTAN 25 MG TAB PO SCH (12:08)
[2016-09-06] MEDS: AMIODARONE 200 MG TAB (PACERONE) PO SCH (12:08)
[2016-09-06] MEDS ORDERED: DOXY100C PO (13:09)
[2016-09-06] MEDS ORDERED: ALB2.5NEB NEB (13:09)
[2016-09-06] MEDS ORDERED: PEG1POW PO (13:09)
[2016-09-06] MEDS ORDERED: ACET20%4ML INH (13:09)
--- NOTE | 2016-09-16 07:49 | DSES ---
DATE OF ADMISSION: 09/01/2016 DATE OF DISCHARGE: 09/06/2016 CONSULTANTS: Dr. Hai Bermeo. PROCEDURES: 09/01/2016 - fiberoptic bronchoscopy with transbronchoscopic washing and retrieval of mucous. 09/03/2016 - fiberoptic bronchoscopy with washing and removal of foreign body mucous. BRIEF HISTORY AND PHYSICAL: The patient is a 81-year-old patient of Dr. Woods recently admitted for pneumonia. Symptoms had improved during the hospitalization and she was discharged home. However, in the 3 days leading up to this hospitalization, she developed increased shortness of breath and presented to the hospital with dyspnea. PAST MEDICAL HISTORY: The patient has history of having hypoxemic respiratory failure, oxygen dependent, COPD, diastolic congestive heart pulmonary hypertension, coronary artery disease and insulin dependent diabetes mellitus type 2, atrial fibrillation on Eliquis, obstructive sleep apnea, noncompliant with CPAP iron-deficiency anemia, hypothyroidism, history of aspiration and Pseudomonas pneumonia. Labs on admission white count 12, hemoglobin 9.7, platelets 460,000, Sodium 141, potassium 2.9, BUN 28, creatinine 1.5. Chest x-ray and CT scan showed left lobar collapse with shift of the mediastinum toward the left. HOSPITAL COURSE: The patient was admitted for recurrent pneumonia with atelectasis of the left upper lobe and mediastinal shift possibly related to mucous plugging as well as acute on chronic hypoxic respiratory failure. 1. Recurrent pneumonia: The patient was treated with IV vancomycin due to history of methicillin resistant Staphylococcus aureus (MRSA) in the past as well as meropenem. She underwent bronchoscopy on 09/01/2016 which grew E coli and Staphylococcus aureus. The she underwent another bronchoscopy on 09/03/2016 with retrieval of significant amount of mucous on both occasions and her respiratory status improved dramatically after this treatment and she was felt stable for discharge as her respiratory status and hypoxemia improved. She was able to maintain her oxygen saturations in the 90s on 3 liters nasal cannula. She will followup with pulmonary as an outpatient. 2. Acute on chronic respiratory failure with hypoxemia. Her hypoxemia improved with the retrieval of mucous plugging during bronchoscopy. 3. Obstructive sleep apnea: She is noncompliant with her CPAP of home. Dr. Bermeo felt that if she could get going with her CPAP again this would help to prevent further mucous in the future. Respiratory came in and looked over her machine and she was set up to use or CPAP the night before discharge. She really does not tolerate it very well but they are going to continue on this as an outpatient. She will followup with pulmonary. She may need followup NPSG to reassess her settings. 4. Diastolic congestive heart failure: She was on Lasix at home and does develop lower extremity edema without diuretics. However, Dr. Bermeo would like to hold off on diuretic use at this time as it contributes to thickening of her secretions and increases her risk for recurrent mucous plug. She will be discharged without Lasix. 5. Anemia: She has chronic anemia which became slightly worse during her hospitalization. However, not low enough to justify transfusion. Also with Dr. Bermeo did not want to transfuse as the additional volume of the transfusion may exacerbate breathing issues and pleural effusions. 6. Atrial fibrillation: This is chronic and stable on her usual home dose of Cardizem and anticoagulation with Eliquis. 7. Constipation: The patient required clear amount of bowel care for the hospitalization 8. Chest wall pain secondary to coughing: She was given a K patch. She used some hydrocodone as needed. 9. Hypothyroidism: Stable on her usual medications. 10. Coronary artery disease: This is stable. DISPOSITION: The patient is stable for discharge home to follow up with pulmonary as an outpatient to further address her pneumonia and obstructive sleep apnea. She will followup with Dr. Woods within week. MEDICATIONS: - acetylcysteine 800 mg twice a day - albuterol 2.5 mg nebulizer four times a day - doxycycline 100 mg twice a day - MiraLAX one packet daily, albuterol HFA two puffs every 4 hours as needed for shortness of breath. - amiodarone 200 mg daily - Eliquis 5 mg twice a day - aspirin 81 mg daily, atorvastatin 40 mg at bedtime - diltiazem 180 mg daily - Breo Ellipta one inhalation twice a day - losartan 25 mg daily - metformin 1000 mg twice a day - multivitamin daily - nitroglycerin 0.4 mg sublingual as needed - omeprazole 20 mg daily - senna one tablet at bedtime - Spiriva 18 mcg daily - Viactiv chews daily. - Her furosemide was held DISCHARGE DIAGNOSES: 1. Recurrent pneumonia. 2. Acute on chronic hypoxic respiratory failure. 3. Atelectasis of the left upper lung with mediastinal shift secondary to mucous plugging. 4. COPD with exacerbation. 5. Obstructive sleep apnea. 6. Acute on chronic anemia. 7. Diastolic congestive heart failure. 8. Chest wall pain. 9. Coronary artery disease. 10. Hypothyroidism. 11. Constipation.
== END 2016-09-06 14:30 | disposition home or self-care (01) | DRG 190 ==
LOC: EDBD 23:16 → M ED 09-01 00:16 → M ED INP 09-01 01:20 → M ICU 09-01 03:06 → M PCU 09-01 22:54
PROVIDERS: ADMIT Internal Medicine; ATTEND Family Medicine
PROC: 0BJ08ZZ Inspection of Tracheobronchial Tree, Via Natural or Artificial Opening Endoscopic (ICD-10-PCS; principal; 2016-09-01)
PROC: 3E1F88Z Irrigation of Respiratory Tract using Irrigating Substance, Via Natural or Artificial Opening Endoscopic (ICD-10-PCS; 2016-09-01)
PROC: 0C9 Mouth and Throat, Drainage (ICD-10-PCS; 2016-09-01)
PROC: 0B978ZX Drainage of Left Main Bronchus, Via Natural or Artificial Opening Endoscopic, Diagnostic (ICD-10-PCS; 2016-09-01)
PROC: 0BJ08ZZ Inspection of Tracheobronchial Tree, Via Natural or Artificial Opening Endoscopic (ICD-10-PCS; 2016-09-02)
PROC: 3E1F88Z Irrigation of Respiratory Tract using Irrigating Substance, Via Natural or Artificial Opening Endoscopic (ICD-10-PCS; 2016-09-02)
DX: J44.1 Chronic obstructive pulmonary disease with (acute) exacerbation (principal); J96.21 Acute and chronic respiratory failure with hypoxia; J18.9 Pneumonia, unspecified organism; I50.32 Chronic diastolic (congestive) heart failure; J98.11 Atelectasis; I27.2 Other secondary pulmonary hypertension; I25.10 Atherosclerotic heart disease of native coronary artery without angina pectoris; E11.9 Type 2 diabetes mellitus without complications; I48.2 Chronic atrial fibrillation; G47.33 Obstructive sleep apnea (adult) (pediatric); D50.9 Iron deficiency anemia, unspecified; E78.5 Hyperlipidemia, unspecified; D64.9 Anemia, unspecified; R42 Dizziness and giddiness; K59.00 Constipation, unspecified; E03.9 Hypothyroidism, unspecified; Z99.81 Dependence on supplemental oxygen; Z95.5 Presence of coronary angioplasty implant and graft; Z79.01 Long term (current) use of anticoagulants; Z79.82 Long term (current) use of aspirin; Z79.84 Long term (current) use of oral hypoglycemic drugs; Z79.899 Other long term (current) drug therapy; Z88.0 Allergy status to penicillin; Z88.2 Allergy status to sulfonamides; Z88.8 Allergy status to other drugs, medicaments and biological substances; Z88.6 Allergy status to analgesic agent; Z87.891 Personal history of nicotine dependence; Z91.19 Patient's noncompliance with other medical treatment and regimen

== ENCOUNTER → 2016-09-17 | Outpatient (CLI) | payer MEDICARE, BC, OTHER ==
[~2016-09-17] MED LIST changes: +ACET20%4ML INH; +ALB2.5NEB NEB; +DOXY100C PO; +PEG1POW PO; +SYNT75TA PO
--- NOTE | 2016-09-17 13:46 | REP ---
PA and lateral chest: Comparisons 09/05/2016. There are bilateral pleural effusions. These are slightly decreased in size from the prior study. Remainder the lung skinner are clear. Cardiac size is enlarged, unchanged. The violetta, mediastinum, and bony thorax unremarkable. Impression: Persisting bilateral pleural effusions, slightly decreased in size. Persisting cardiomegaly. Signed by Alex Hou MD 09/17/2016 01:37 P
== END ==
LOC: M SMT 13:12
PROVIDERS: ATTEND Internal Medicine Pulmonary Disease
DX: J43.1 Panlobular emphysema (principal)

== ENCOUNTER → 2016-10-07 | Outpatient (REF) | payer MEDICARE, OTHER ==
[2016-10-07 17:35] LABS: CALCIUM LEVEL 9.2 MG/DL (8.8-10.2); CREATININE FOR GFR 1.42 MG/DL (0.55-1.02); POTASSIUM SERUM 4.3 MEQ/L (3.5-5.1)
[2016-10-07 17:36] LABS: ALBUMIN 3.7 GM/DL (3.2-5.2); PHOSPHORUS LEVEL 4.3 MG/DL (2.5-4.9)
== END ==
LOC: M LABDRWCV 16:28
PROVIDERS: ATTEND Physician Assistant
DX: I50.32 Chronic diastolic (congestive) heart failure (principal)

== ENCOUNTER → 2016-10-23 | Outpatient (REF) | payer MEDICARE, OTHER ==
[2016-10-23 19:20] LABS: ALBUMIN 3.6 GM/DL (3.2-5.2); CALCIUM LEVEL 9.1 MG/DL (8.8-10.2); CREATININE FOR GFR 1.28 MG/DL (0.55-1.02); GLOMERULAR FILTRATION RATE 42.8 (>39); PERCENT SATURATION 7.9 % (13.2-37.4); PHOSPHORUS LEVEL 3.9 MG/DL (2.5-4.9); POTASSIUM SERUM 4.2 MEQ/L (3.5-5.1)
[2016-10-23 19:26] LABS: BASO # 0.1 K/mm3 (0.0-0.2); BASO % 0.8 % (0.0-1.0); EOS # 0.6 K/mm3 (0.0-0.50); EOS % 7.7 % (0.0-3.0); LARGE UNSTAINED CELL # 0.1 K/mm3 (0.0-0.4); LARGE UNSTAINED CELL % 1.3 % (0.0-4.0); MEAN CORPUSCULAR HEMOGLOBIN 25.6 pg (27.0-33.0); MEAN CORPUSCULAR HGB CONC 31.3 g/dl (32.0-36.5); MEAN CORPUSCULAR VOLUME 81.6 fl (80.0-96.0); MONO # 0.5 K/mm3 (0.0-0.8); MONO % 5.5 % (0.0-5.0); NEUTROPHILS # 5.2 K/mm3 (1.8-7.7); NEUTROPHILS % 61.7 % (36.0-66.0); PLATELET COUNT, AUTOMATED 444 k/mm3 (150-450); RED CELL DISTRIBUTION WIDTH 15.2 % (11.5-14.5); WHITE BLOOD COUNT 8.4 K/mm3 (4.0-10.0)
== END ==
LOC: M LABDRWCV 16:23
PROVIDERS: ATTEND Physician Assistant
DX: I50.32 Chronic diastolic (congestive) heart failure (principal); D64.9 Anemia, unspecified

== ENCOUNTER → 2016-10-24 | Outpatient (CLI) | payer MEDICARE, BC, OTHER ==
--- NOTE | 2016-10-27 10:12 | SLEEPCENT ---
DATE OF STUDY: 10/24/2016 ORDERING PROVIDER: Hai Bermeo DO Nocturnal polysomnography was performed for retitration of pressure therapy in this patient with a prior history of obstructive sleep apnea syndrome, intolerant of continuous positive airway pressure (CPAP). For testing, the patient was fit with a ViVu Simplus face mask of small size. 4 cm of water was applied to the circuit, and the lights were extinguished. 7 hours and 56 minutes of data were reviewed. Of these, there were 266 minutes of sleep. Sleep latency was prolonged at 99.5 minutes. Rapid eye movement (REM) latency was short at 84.5 minutes. Sleep architecture showed fragmentation early in the study, and there was a period of awake between 2:30 and 3:30. There were two REM periods thereafter. Overall sleep efficiency was 56.8%. The patient's electrocardiogram (EKG) showed a supraventricular rhythm somewhat irregular with an average heart rate of 60 beats per minute. Electroencephalogram (EEG) showed normal waveforms for awake and sleep. There were no respiratory events identified. Hypoventilatory oxygen desaturation was seen, prompting the addition of supplemental oxygen. The patient became intolerant of CPAP after a few hours, and CPAP was removed. She was put on supplemental oxygen, and best sleep was seen on oxygen at 2 liters per minute via nasal cannula. There was some snoring noted but no significant respiratory events were identified. IMPRESSION: Normal nocturnal polysomnography with snoring. RECOMMENDATION: The patient has effected significant weight loss, and there was no clear evidence of persistent obstructive apneic disease. Hypoventilatory oxygen desaturations, however, were seen; and supplemental oxygen at 2 liters per minute should be sufficient to maintain a saturation of 90%+.
== END ==
LOC: M SLEEP 19:44
PROVIDERS: ATTEND Internal Medicine Pulmonary Disease
DX: G47.33 Obstructive sleep apnea (adult) (pediatric) (principal)

== ENCOUNTER → 2016-11-14 | Outpatient (CLI) | payer MEDICARE, BC, OTHER ==
--- NOTE | 2016-11-14 11:17 | REP ---
CHEST, TWO VIEWS: HISTORY: Emphysema. COMPARISON: 09/17/2016. Increased density is present in the left lower lobe consistent with and infiltrate. The right lung is clear. A small left pleural effusion is present. The cardiac silhouette is enlarged. The pulmonary vasculature is normal in appearance. Degenerative change is present in the thoracic spine. IMPRESSION: 1. Left lower lobe infiltrate. 2. Small left pleural effusion. 3. Cardiomegaly. Signed by Jose Burnette MD 11/14/2016 11:21 A
== END ==
LOC: M SMT 10:29
PROVIDERS: ATTEND Internal Medicine Pulmonary Disease
DX: I51.7 Cardiomegaly (principal); R91.8 Other nonspecific abnormal finding of lung field; J90 Pleural effusion, not elsewhere classified

== ENCOUNTER → 2016-12-31 | Outpatient (REF) | payer MEDICARE, OTHER ==
[~2016-12-31] MED LIST changes: -8 HO650T PO; +8 HO650T2 PO; -ACET-654 PO; +ACET1TAB17 PO; -ASPI81TA13 PO; +ASPI81TA24 PO; -ATOR1TAB18 PO; -ATOR40TA PO; +ATOR40TA75 PO; +ATOR80TA59 PO; -COLA100C3 PO; +COLA100C5 PO; +FERR1TAB8 PO; +LEVA1TAB PO; +LEVA1TAB2 PO; -LEVA500T PO; +LEVA750T7 PO; -METF1000 PO; +METF10004 PO; -MUCI600T34 PO; +MUCI600T37 PO; -NYST100024 TOP; +NYST1POW9 TOP; +PRED10PA PO; -PRED10TA PO; +PRED10TA2 PO; +SENN18TA PO; -SENN1TAB4 PO
[2016-12-31 17:09] LABS: ALBUMIN 3.6 GM/DL (3.2-5.2); ALBUMIN/GLOBULIN RATIO 1.13 (1.00-1.93); BILIRUBIN,TOTAL 0.3 MG/DL (0.2-1.0); CALCIUM LEVEL 8.8 MG/DL (8.8-10.2); CREATININE FOR GFR 1.69 MG/DL (0.55-1.02); FREE T4 1.37 NG/DL (0.76-1.46); GLOMERULAR FILTRATION RATE 31.1 (>39); POTASSIUM SERUM 4.2 MEQ/L (3.5-5.1); TOTAL PROTEIN 6.8 GM/DL (6.4-8.2)
[2016-12-31 17:40] LABS: MEAN CORPUSCULAR HEMOGLOBIN 24.6 pg (27.0-33.0); MEAN CORPUSCULAR HGB CONC 30.8 g/dl (32.0-36.5); MEAN CORPUSCULAR VOLUME 79.8 fl (80.0-96.0); WHITE BLOOD COUNT 11.4 K/mm3 (4.0-10.0)
== END ==
LOC: M SFHCCAPE 07:56
PROVIDERS: ATTEND Family Medicine
DX: R63.4 Abnormal weight loss (principal); E03.2 Hypothyroidism due to medicaments and other exogenous substances; T46.2X1A Poisoning by other antidysrhythmic drugs, accidental (unintentional), initial encounter; E11.9 Type 2 diabetes mellitus without complications

== ENCOUNTER 2017-01-06 22:44 | Inpatient (IN) | payer MEDICARE, BC, OTHER ==
[~2017-01-06] VITALS: Ht 160 cm; Wt 60.9 kg
[~2017-01-06 22:44] MED LIST changes: -FERR1TAB8 PO; -LEVA1TAB PO; -LEVA750T7 PO; -PRED10PA PO
[2017-01-06] MEDS ORDERED: ONDANSETRON 4MG/2ML VIAL (J2405) IV ONE (23:30)
[2017-01-06] MEDS: MORPHINE 2 MG/ML 1ML SYRINGE IV PRN (23:45)
[2017-01-06] MEDS: NS 1,000 ML IV SCH (23:45)
[2017-01-07 00:11] LABS: BASO # 0.1 K/mm3 (0.0-0.2); BASO % 0.6 % (0.0-1.0); EOS # 0.2 K/mm3 (0.0-0.50); EOS % 1.3 % (0.0-3.0); LARGE UNSTAINED CELL # 0.2 K/mm3 (0.0-0.4); LARGE UNSTAINED CELL % 1.2 % (0.0-4.0); LYMPH # 1.1 K/mm3 (1.5-4.5); LYMPH % 7.9 % (24.0-44.0); MEAN CORPUSCULAR HEMOGLOBIN 24.8 pg (27.0-33.0); MEAN CORPUSCULAR VOLUME 77.6 fl (80.0-96.0); MONO # 0.8 K/mm3 (0.0-0.8); MONO % 5.4 % (0.0-5.0); NEUTROPHILS # 11.7 K/mm3 (1.8-7.7); NEUTROPHILS % 83.7 % (36.0-66.0); PLATELET COUNT, AUTOMATED 433 k/mm3 (150-450); RED CELL DISTRIBUTION WIDTH 15.7 % (11.5-14.5)
[2017-01-07 00:25] LABS: ALBUMIN 3.2 GM/DL (3.2-5.2); ALBUMIN/GLOBULIN RATIO 0.73 (1.00-1.93); ALKALINE PHOSPHATASE 75 U/L (45-117); ALT/SGPT 24 U/L (12-78); ANION GAP 7 MEQ/L (8-16); AST/SGOT 20 U/L (15-37); BILIRUBIN,DIRECT < 0.1 MG/DL (0.0-0.2); BILIRUBIN,TOTAL 0.2 MG/DL (0.2-1.0); BLOOD UREA NITROGEN 30 MG/DL (7-18); CALCIUM LEVEL 8.8 MG/DL (8.8-10.2); CARBON DIOXIDE LEVEL 32 MEQ/L (21-32); CHLORIDE LEVEL 97 MEQ/L (98-107); CREATININE FOR GFR 1.63 MG/DL (0.55-1.02); GLOMERULAR FILTRATION RATE 32.4 (>39); GLUCOSE, FASTING 161 MG/DL (83-110); POTASSIUM SERUM 4.5 MEQ/L (3.5-5.1); SODIUM LEVEL 136 MEQ/L (136-145); TOTAL PROTEIN 7.6 GM/DL (6.4-8.2)
[2017-01-07] MEDS: MORPHINE 2 MG/ML 1ML SYRINGE IV PRN ×3 (00:42→10:56)
[2017-01-07] MEDS ORDERED: GASTROGRAFIN SOLUTION 30ML (Q9963) PO ONE ×2 (01:45)
--- NOTE | 2017-01-07 04:20 | REPUSA ---
CLINICAL HISTORY: Abdominal pain. TECHNIQUE: Multiple axial, sagittal and coronal CT images were obtained through the abdomen and pelvi s without administration of oral or IV contrast material. COMMENTS: The liver is mildly enlarged without mass or defect. There is no intra or extrahepatic biliary ductal dilatation. The spleen is normal. The gallbladder is surgically absent. The pancreas is of normal co ntour and attenuation characteristics. There is no evidence of adrenal mass. The kidneys are normal in size, shape and configuration. No renal or ureteral calculi are identified. There is no hydroureter or hydronephrosis. There is no evidence for appendicitis. There is moderate large bowel fecal stasis. Thickening of the midaspect of the sigmoid colon. No evidence for small or large bowel obstruction. There is no evidenc e of abdominal ascites or lymphadenopathy. There is no evidence of intrinsic or extrinsic bladder mass. There is no pelvic ascites or lymphadeno krysta. Prior hysterectomy. Distended bladder. Images of the lung bases show no evidence of pleural or parenchymal mass. There are minimal pleural e ffusions. Basilar atelectatic airspace disease of the lower lobes. Bilateral basilar interstitial pul monary thickening.The heart is moderately enlarged. Minimal pericardial thickening and calcifications . The bony structures are free of lytic or blastic lesions. Multilevel degenerative changes are seen in volving the thoracolumbar spine. Scattered calcifications are seen involving the aorta and major branches compatible with atherosclero sis. IMPRESSION: Constipation. Thickened sigmoid colon. Underdistention, spasm versus an infectious/inflammatory pathology. Clinical evaluation and followup are suggested to exclude an underlying neoplastic pathology. Mild hepatomegaly. Cholecystectomy. Distended urinary bladder. Hysterectomy. Thank you for your kind referral of this patient.
[2017-01-07 04:54] LABS: BASO # 0.1 K/mm3 (0.0-0.2); BASO % 0.5 % (0.0-1.0); EOS # 0.3 K/mm3 (0.0-0.50); LARGE UNSTAINED CELL # 0.2 K/mm3 (0.0-0.4); LARGE UNSTAINED CELL % 1.4 % (0.0-4.0); LYMPH % 14.5 % (24.0-44.0); MEAN CORPUSCULAR HEMOGLOBIN 24.5 pg (27.0-33.0); MEAN CORPUSCULAR HGB CONC 31.4 g/dl (32.0-36.5); MEAN CORPUSCULAR VOLUME 78.2 fl (80.0-96.0); MONO # 0.7 K/mm3 (0.0-0.8); MONO % 5.7 % (0.0-5.0); NEUTROPHILS # 9.6 K/mm3 (1.8-7.7); NEUTROPHILS % 75.9 % (36.0-66.0); PLATELET COUNT, AUTOMATED 373 k/mm3 (150-450); WHITE BLOOD COUNT 12.6 K/mm3 (4.0-10.0)
[2017-01-07] MEDS: LEVOTHYROXINE 75MCG TABLET (0.075MG) PO SCH (06:00)
[2017-01-07] MEDS ORDERED: FLEET OIL RETENTION ENEMA PR ONE (06:45)
--- NOTE | 2017-01-07 07:42 | REP ---
PA and lateral chest: Comparison is 11/14/2016. There is chronic effacement of the left costophrenic angle, nonspecific, infiltrate versus effusion versus pleural thickening/effusion. The remainder of the left lung is clear. Right lung is clear and unchanged. Cardiac size is mildly enlarged, unchanged. There is no free subdiaphragmatic air. There are surgical clips in the upper abdomen. Impression: Chronic effacement of the left costophrenic angle. Lung skinner otherwise clear. Mild cardiomegaly. Abdomen, supine upright views: Comparison is a CT abdomen pelvis of 01/07/2017. There is no bowel distension or obstruction. There is skin fold artifact from abdominal wall pannus. There are surgical clips in the right upper quadrant and a surgical clip in the pelvis. There is degenerative disc disease in the lumbar spine. Impression: Normal bowel gas pattern. Signed by Alex Hou MD 01/07/2017 07:34 A
[2017-01-07] MEDS ORDERED: ALBU0.63 INH (08:29)
[2017-01-07] MEDS ORDERED: FERR1TAB8 PO (08:29)
[2017-01-07] MEDS ORDERED: MIRA33504 PO (08:29)
[2017-01-07] MEDS ORDERED: ATOR80TA59 PO (08:29)
[2017-01-07] MEDS ORDERED: FURO40TA2 PO (08:29)
[2017-01-07] MEDS ORDERED: ALBUTEROL SULFATE 2.5 MG/0.5 ML INH NEB SOLN INH ONE (08:30)
[2017-01-07] MEDS ORDERED: IPRATROPIUM 0.5MG/ALBUTEROL 2.5MG INH SOL UD 3ML (DUONEB)(J7620) NEB ONE (08:30)
[2017-01-07] MEDS: FERROUS SULFATE 325MG TAB PO SCH ×2 (09:00→20:21)
[2017-01-07] MEDS: AMIODARONE 200 MG TAB (PACERONE) PO SCH (09:00)
[2017-01-07] MEDS: SENNA 8.6 MG TAB (SENOKOT) PO SCH ×2 (09:00→20:21)
[2017-01-07] MEDS: OMEPRAZOLE 20 MG CAP PO SCH (09:00)
[2017-01-07] MEDS: DOCUSATE SODIUM 100 MG CAP PO SCH ×2 (09:00→20:21)
[2017-01-07] MEDS: APIXABAN 5 MG TAB (ELIQUIS) PO SCH ×2 (09:00→20:21)
[2017-01-07] MEDS: LOSARTAN 25 MG TAB PO SCH (09:00)
[2017-01-07] MEDS: diltiaZEM **CD** 180 MG CAP PO SCH (09:00)
--- NOTE | 2017-01-07 09:05 | ECGEPIP ---
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
[2017-01-07] MEDS: NS 1,000 ML IV SCH (09:29)
[2017-01-07] MEDS ORDERED: BISACODYL 10 MG SUPP PR PRN (10:45)
[2017-01-07] MEDS ORDERED: NITROGLYCERIN 0.4 MG SUBL TABLET SL PRN (10:45)
[2017-01-07] MEDS ORDERED: MIRALAX *UNIT DOSE* 17GM PACKET PO PRN (10:45)
[2017-01-07] MEDS ORDERED: ALBUTEROL 90 MCG/ACT 8GM HFA INHALER INH PRN (10:45)
[2017-01-07] MEDS ORDERED: LevoFLOXacin IV 750 MG in APPROPRIATE DILUENT 1 EA IV SCH (12:00)
[2017-01-07] MEDS: HumaLOG INSULIN (NovoLOG) PER UNIT SC SCH ×3 (12:00→21:00)
[2017-01-07] MEDS ORDERED: DEXTROSE 50% 50 ML SYRINGE IV PRN (12:00)
[2017-01-07] MEDS ORDERED: GLUCOSE 4 GM CHEW TABLET PO PRN (12:00)
[2017-01-07] MEDS ORDERED: MORPHINE 2 MG/ML 1ML SYRINGE IV PRN (12:00)
[2017-01-07] MEDS ORDERED: GLUCAGON FOR INJ 1 MG VIAL (J1610) SC PRN (12:00)
[2017-01-07 12:35] LABS: ERYTHROCYTE SEDIMENTATION RATE 52 mm/hr (0-30)
--- NOTE | 2017-01-07 12:54 | REP ---
PA and lateral chest: Comparisons are the PA and lateral chest of 01/07/2017, CT of the abdomen of 01/07/[address] of the chest of 04/25/2016. There is chronic cardiomegaly. There is chronic effacement left costophrenic angle. On the comparison CT s there is chronic pleural thickening and atelectasis in the left lower lobe. There are no acute infiltrates or effusions. The violetta, mediastinum, and bony thorax are unremarkable. Impression: Chronic cardiomegaly. Chronic effacement left costophrenic angle, likely from chronic pleural thickening and chronic left lower lobe atelectasis as seen on comparison CT studies. No new or acute cardiopulmonary findings are identified. Signed by Alex Hou MD 01/07/2017 12:46 P
[2017-01-07] MEDS: ALBUTEROL SULFATE 2.5 MG/0.5 ML INH NEB SOLN INH SCH ×2 (13:58→19:31)
[2017-01-07] MEDS ORDERED: NS 1,000 ML IV SCH (15:00)
[2017-01-07] MEDS: ACETAMINOPHEN TAB 650MG DOSE (2X325MG) PO PRN ×2 (15:47→21:37)
[2017-01-07] MEDS: TIOTROPIUM INHALER/CAPSULE (SPIRIVA) INH SCH (16:50)
--- NOTE | 2017-01-07 18:36 | HPE ---
DATE OF ADMISSION: 01/07/2017 CHIEF COMPLAINT: Chest and upper abdominal pain. HISTORY: The patient began having discomfort yesterday afternoon. She had dinner but did not eat much last night. Gradually pain persisted. Came to the emergency room (ER). EKG did not show acute ST-segment changes. She had a right bundle branch block, and her enzymes initially were negative. She did have an elevated white count. It was unclear with respect to the etiology of this discomfort. She did receive morphine with some improvement and just received a secondary dose with improvement in her pain. She is anemic, and this has been a chronic problem. She has a history of atrial fibrillation and is on Eliquis as a stroke prophylaxis regimen as well as aspirin. She has not had any recent dramatic evidence of bleeding, and workup in the past several months has not revealed a definitive source for the gastrointestinal (GI) blood loss. Specifically, she underwent endoscopy with Dr. Edwards. Upper endoscopy was done 06/17/2014, which showed no particular abnormality other than a small hiatal hernia. She had colonoscopy, which again was done for the diagnosis of iron deficiency anemia, which did show two sessile polyps. Pathology from these was tubular adenoma on a repeat study done by Dr. Coates in April 2016 as well as the study that was done by Dr. Edwards in 2014. PAST MEDICAL HISTORY: Remarkable for coronary artery disease, and she is status post stent to left circumflex in 1988, left anterior descending (LAD) times two in 2013. She had a nonstress test in 2013 that showed inducible ischemia persisting despite the stents that were placed. She had an ejection fraction of 8%. Chronic obstructive pulmonary disease (COPD) and with cor pulmonale demonstrated as well as per past history. Degenerative disc disease, lumbosacral spine, Previous history of obstructive sleep apnea (JASPAL), but she is no longer using continuous positive airway pressure (CPAP). Has been advised that it was no longer necessary. She has a history of borderline B12 deficiency, congestive heart failure. 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 She had right upper lobe pneumonia with methicillin-resistant Staphylococcus aureus (MRSA) on sputum culture in March 2016. Subsequent sputum collected in August 2016 showed methicillin-sensitive Staphylococcus aureus as well as Escherichia (E) coli, which was resistant to Levaquin. She has had a cough now for a very long time, harsh, barking cough, which is not productive of significant sputum. No blood. REVIEW OF SYSTEMS: She is not having headache, change in vision, or change in swallowing. No dysphasia. Discomfort is epigastric/lower chest anteriorly. She said this worsens somewhat by deep breathing. She has not had a bowel movement (BM) in several days. She is not sure exactly how long it has been. No dysuria. No flank pain. No chills or fevers. Besides chronic cough, no particular respiratory complaint at this time. She does use her oxygen 2.5 liters routinely during the day constantly. CURRENT MEDICATIONS: - albuterol metered-dose inhaler and nebulizers as required - amiodarone 200 mg daily - Eliquis 5 mg twice a day - aspirin 81 mg daily - atorvastatin 40 mg daily - diltiazem 180 mg daily - iron sulfate 325 twice a day - Breo Ellipta one dilation twice a day - furosemide 40 mg daily - levofloxacin 75 mcg daily - losartan 25 mg daily - metformin 1000 mg twice a day - nitroglycerin sublingual as needed for angina - omeprazole 20 mg by mouth daily - MiraLax one 17-gram dose of powder as needed constipation - senna 8.6 mg two tablets by mouth at bedtime - Spiriva 18 mcg by inhalation daily. PHYSICAL EXAMINATION: VITAL SIGNS: Blood pressure 133/63, pulse 62, respiratory rate 16, unlabored, oxygen saturation 95% on 2 liters. It is labeled in the record as room air, but she has had oxygen on continuously. She is alert, pleasant, cooperative, conversant. Discussed DO NOT RESUSCITATE, and she wishes to have DO NOT RESUSCITATE order placed but would like ventilatory support if she develops a crisis, but only on a temporary basis, so DO NOT RESUSCITATE. May intubate, but only for a trial of treatment. May use noninvasive ventilator for a trial of treatment. HEENT: Normocephalic, atraumatic. Pupils equal, round, and reactive. Full extraocular movements. Anicteric. No neck mass noted. No carotid bruits noted. HEART: Regular rhythm. A 1-2 over 6 systolic murmur noted, left sternal border and base. Point of maximal impulse (PMI) is not clearly displaced. LUNGS: Basilar rales, left side posteriorly. Right clear, although breath sounds are somewhat diminished. ABDOMEN: Soft. No guarding or rebound. She does have a right periumbilical hernia that is nontender, easily reducible, obese. No guarding or pelvic shake tenderness. EXTREMITIES: Show no edema. Pulses are palpable throughout. NEUROLOGIC: She moves all extremities well and with no deficits. Cranial nerves are symmetric without evidence of asymmetry. Speech is clear, easily understood. Her ability to converse is normal, and there is there is no evidence of clouding of sensorium. LABORATORY DATA: Hemoglobin 14,000 with left shift, 83.7% neutrophils, hemoglobin 9.0. On repeat examinations some 6 hours later, hemoglobin 7.9. White count 12.6. Still maintaining a left shift. Also she has a macrocytic index with 77.6 MCV, consistent with iron deficiency anemia. Lactic acid was 2.4 initially and 6 hours later was 3.3. BUN 30, creatinine 1.63, glucose 161. C-reactive protein 1.56, lipase 88. CK-MB was 1.0, total CPK 70. Troponin I less than 0.02. Sedimentation rate is pending. Imaging studies done so far included abdomen and pelvis x-ray, CT. In the left base suggests some infiltrate on chest x-ray, which was ordered just now, showing on anterior-posterior (AP) projection haziness on the left lower lung field, but on the lateral hint of infiltrate posteriorly with a suggestion of air bronchograms. On the lateral view there is some fluid in the fissures, although not significant. Bony landmarks unremarkable. CT was interpreted as showing a fair amount of stool in her abdomen, and it was also seen on pain film. There is no free air. According to radiology, there is some thickening of the sigmoid colon, some spasm, perhaps possible infectious etiology. Neoplastic pathology is also not ruled out, but again she had a colonoscopy just in April 2016, which makes new colonic neoplasm causing the symptom complex requiring admission unlikely. IMPRESSION: The patient does have an elevated white count, rales on the left base, haziness posteriorly based on the lateral view at least, suggestive of a pulmonic infiltrate. Known history of underlying chronic obstructive pulmonary disease (COPD). PLAN: To culture. Start antibiotic coverage with meropenem and levofloxacin 750 with meropenem to 1 gram every 12 hours and levofloxacin 750 mg every 48 hours. Sputum culture will be requested, although it is not clear how well she will be able to produce a specimen. If signs of illness do not improve and if x-ray worsens, will add vancomycin. At this point, she seems to have constipation. Will try to stimulate colonic function. Her creatinine 1.63 is similar to her most recent outpatient laboratory result, and it is higher than her routine baseline. For the moment we will discontinue metformin, since with the current creatinine function and renal function she is above the threshold for which this drug should be discontinued. Will set up sliding scale short-acting insulin coverage according to our protocol. Because she does appear to be somewhat dry compared to her most recent laboratory data, will provide some gentle rehydration. She does not appear to be in septic shock at this time, although metformin is elevated. Metformin may be elevated on the basis of chronic kidney disease and continued use of metformin.
[2017-01-07] MEDS: FUROSEMIDE 40 MG TAB PO SCH (19:33)
[2017-01-07] MEDS: ATORVASTATIN 20 MG TAB PO SCH (20:21)
[2017-01-07] MEDS ORDERED: ENTER DRUG NAME HERE (PATIENT'S OWN MED) INH SCH (21:00)
[2017-01-07] MEDS ORDERED: metFORMIN (GLUCOPHAGE) 1000 MG TABLET PO SCH (21:00)
[2017-01-07 22:00] VITALS: BP 143/64
[2017-01-07] MEDS: MEROPENEM INJ 1 GM in D5W MINI-BAG PLUS 100 ML IV SCH (22:42)
[2017-01-08 02:54] VITALS: BP 162/70
[2017-01-08 06:00] VITALS: BP 157/67
[2017-01-08 06:40] LABS: BASO # 0.1 K/mm3 (0.0-0.2); BASO % 0.9 % (0.0-1.0); EOS # 0.8 K/mm3 (0.0-0.50); EOS % 8.4 % (0.0-3.0); LARGE UNSTAINED CELL # 0.2 K/mm3 (0.0-0.4); LARGE UNSTAINED CELL % 1.6 % (0.0-4.0); LYMPH % 19.5 % (24.0-44.0); MEAN CORPUSCULAR HEMOGLOBIN 25.5 pg (27.0-33.0); MEAN CORPUSCULAR HGB CONC 31.6 g/dl (32.0-36.5); MEAN CORPUSCULAR VOLUME 80.7 fl (80.0-96.0); MONO # 0.7 K/mm3 (0.0-0.8); MONO % 7.2 % (0.0-5.0); NEUTROPHILS # 5.9 K/mm3 (1.8-7.7); NEUTROPHILS % 62.3 % (36.0-66.0); PLATELET COUNT, AUTOMATED 384 k/mm3 (150-450); WHITE BLOOD COUNT 9.4 K/mm3 (4.0-10.0)
[2017-01-08] MEDS: LEVOTHYROXINE 75MCG TABLET (0.075MG) PO SCH (07:06)
[2017-01-08 07:08] LABS: ALBUMIN 2.9 GM/DL (3.2-5.2); ALBUMIN/GLOBULIN RATIO 0.71 (1.00-1.93); CREATININE FOR GFR 1.27 MG/DL (0.55-1.02); FREE T4 1.44 NG/DL (0.76-1.46); GLOMERULAR FILTRATION RATE 43.2 (>39); MAGNESIUM LEVEL 1.9 MG/DL (1.8-2.4); POTASSIUM SERUM 4.3 MEQ/L (3.5-5.1)
[2017-01-08] MEDS: ALBUTEROL SULFATE 2.5 MG/0.5 ML INH NEB SOLN INH SCH ×3 (07:41→13:49)
[2017-01-08] MEDS: MEROPENEM INJ 1 GM in D5W MINI-BAG PLUS 100 ML IV SCH ×2 (08:31→23:01)
[2017-01-08] MEDS: SENNA 8.6 MG TAB (SENOKOT) PO SCH ×2 (08:31→22:42)
[2017-01-08] MEDS: HumaLOG INSULIN (NovoLOG) PER UNIT SC SCH ×4 (08:31→21:00)
[2017-01-08] MEDS: diltiaZEM **CD** 180 MG CAP PO SCH (08:32)
[2017-01-08] MEDS: FUROSEMIDE 40 MG TAB PO SCH (08:32)
[2017-01-08] MEDS: FERROUS SULFATE 325MG TAB PO SCH ×2 (08:32→22:42)
[2017-01-08] MEDS: APIXABAN 5 MG TAB (ELIQUIS) PO SCH ×2 (08:32→22:44)
[2017-01-08] MEDS: LOSARTAN 25 MG TAB PO SCH (08:33)
[2017-01-08] MEDS: AMIODARONE 200 MG TAB (PACERONE) PO SCH (08:33)
[2017-01-08] MEDS: DOCUSATE SODIUM 100 MG CAP PO SCH ×2 (08:33→22:45)
[2017-01-08] MEDS: OMEPRAZOLE 20 MG CAP PO SCH (08:33)
--- NOTE | 2017-01-08 08:39 | IPNPDOC ---
Subjective Date Seen The patient was seen on 01/08/17. Subjective Chief Complaint/HPI The patient is a 81-year-old female admitted with a reason for visit of Abdominal Pain, Anemia, Copd, Lexa. Events since last encounter Less SOB. Still with mid back pain with deep breaths and some discomfort under her breast with deep breaths. NO n/v. No BM yet. No abd pain. Constitutional: Denies: Chills, Fever Pulmonary: Reports: Dyspnea (at baseline), Denies: Cough Cardiovascular: Reports: Chest Pain (see above - ), Denies: Palpitations, Orthopnea Gastrointestinal: Reports: Constipation (NO BM x 2 weeks), Denies: Nausea, Vomiting, Abdominal Pain, Diarrhea Objective Physical Examination General Exam: Positive: Alert, No Acute Distress Chest Exam: Positive: Normal air movement, Rales (left basilar crackles. No Wheezes or rhonchi) Heart Exam: Positive: Rate Normal, Regular Rhythm Abdomen Exam: Positive: BS Hypoactive, Soft, Negative: Tenderness Extremity Exam: Negative: Edema Assessment /Plan Problems (1) Pneumonia Status: Acute Response to Treatment: Stable Problem Text: 01/08/17. atelectasis, effusion reported on cxr. rales noted on exam with elevated wbc, temp, etc. so empiric rx for pneumonia started.CXR showed chronic pleural thickening. Covered empirically with Merepenum and Levaquin due to Leukocytosis, etc. WBC normalized B/C pending (2) Mural thickening of sigmoid colon Status: Acute Problem Text: Last colonoscopy 04/2016 - polypectomy performed. F/U Colonoscopy recommended in 1 year. Has iron def anemia and obstipation May need to repeat Colonoscopy, but patient really does not want to do this unless absolutely necessary For now, we will augment bowel care Continue clear liquids for now (3) Constipation Status: Chronic Problem Text: see above (4) Iron deficiency anemia Status: Chronic Response to Treatment: Improving Problem Text: Hgb improved s/p 2 units PRBCs Continue iron supplement (5) GABBY (acute kidney injury) Status: Resolved Problem Text: Renal function back to baseline with IVF (6) Atrial fibrillation Status: Chronic Response to Treatment: Stable Problem Text: rate controlled with Diltiazem and Amiodarone Cont. Eliquis (7) COPD (chronic obstructive pulmonary disease) Status: Chronic Response to Treatment: Stable Plan/VTE VTE Prophylaxis Ordered?: Yes (Eliqupranav) VS, I&O, 24H, Fishbone Vital Signs/I&O Vital Signs Date Time Temp Pulse Resp B/P (MAP) Pulse Ox O2 Delivery O2 Flow Rate FiO2 01/08/17 06:00 97.9 55 18 157/67 (97) 95 Nasal Cannula 3.0 I&O- Last 24 Hours up to 6 AM 01/08/17 06:00 Intake Total 2360 ml Output Total 4200 ml Balance -1840 ml Laboratory Data 24H LABS Laboratory Tests 2 01/07/17 10:56: Lactic Acid Followup at 4 Hours 3.3*H 01/07/17 15:53: Lactic Acid Level 2.3*H 01/07/17 16:49: Bedside Glucose (Misc Panel) 139H 01/07/17 19:57: Bedside Glucose (Misc Panel) 125H 01/07/17 20:11: Lactic Acid Followup at 4 Hours 1.9 01/08/17 02:51: Bedside Glucose (Misc Panel) 108 01/08/17 06:25: White Blood Count 9.4, Red Blood Count 4.29, Hemoglobin 10.9#L, Hematocrit 34.6L , Mean Corpuscular Volume 80.7, Mean Corpuscular Hemoglobin 25.5L, Mean Corpuscular Hemoglobin Concent 31.6L, Red Cell Distribution Width 16.0H, Platelet Count 384, Neutrophils (%) (Auto) 62.3, Lymphocytes (%) (Auto) 19.5L, Monocytes (%) (Auto) 7.2H, Eosinophils (%) (Auto) 8.4H, Basophils (%) (Auto) 0.9 , Neutrophils # (Auto) 5.9, Lymphocytes # (Auto) 2.0, Monocytes # (Auto) 0.7, Eosinophils # (Auto) 0.8H, Basophils # (Auto) 0.1, Large Unclassified Cells % 1.6, Large Unclassified Cells # 0.2, Anion Gap 6L, Glomerular Filtration Rate 43.2, Blood Urea Nitrogen 19H, Creatinine 1.27H, Sodium Level 137, Potassium Level 4.3, Chloride Level 97L, Carbon Dioxide Level 34H, Calcium Level 9.0, Aspartate Amino Transf (AST/SGOT) 14L, Alanine Aminotransferase (ALT/SGPT) 23, Alkaline Phosphatase 70, Total Bilirubin 1.0#, Total Protein 7.0, Albumin 2.9L, Magnesium Level 1.9, Albumin/Globulin Ratio 0.71L, Thyroid Stimulating Hormone ( TSH) 9.940H, Free Thyroxine 1.44 CBC/BMP Laboratory Tests 01/08/17 06:25 Red Blood Count 4.29, Mean Corpuscular Volume 80.7, Mean Corpuscular Hemoglobin 25.5 L, Mean Corpuscular Hemoglobin Concent 31.6 L, Red Cell Distribution Width 16.0 H, Neutrophils (%) (Auto) 62.3, Lymphocytes (%) (Auto) 19.5 L, Monocytes (% ) (Auto) 7.2 H, Eosinophils (%) (Auto) 8.4 H, Basophils (%) (Auto) 0.9, Neutrophils # (Auto) 5.9, Lymphocytes # (Auto) 2.0, Monocytes # (Auto) 0.7, Eosinophils # (Auto) 0.8 H, Basophils # (Auto) 0.1, Calcium Level 9.0, Aspartate Amino Transf (AST/SGOT) 14 L, Alanine Aminotransferase (ALT/SGPT) 23, Alkaline Phosphatase 70, Total Bilirubin 1.0 #, Total Protein 7.0, Albumin 2.9 L Microbiology Microbiology 01/07/17 Blood Culture, Received Pending 01/07/17 Blood Culture, Received Pending Attending Note Attending Note agree with findings and plan as outlined by Rena Ortez, as amended. OSCAR ORTEZ PA-C Jan 08, 2017 08:39 David Pollack MD Jan 08, 2017 13:49
[2017-01-08] MEDS: MIRALAX *UNIT DOSE* 17GM PACKET PO SCH ×2 (09:48→22:42)
[2017-01-08] MEDS: TIOTROPIUM INHALER/CAPSULE (SPIRIVA) INH SCH (11:06)
[2017-01-08] MEDS: MOM 30ML SUSPENSION UDC PO SCH (13:10)
[2017-01-08 14:00] VITALS: BP 155/62
[2017-01-08] MEDS: ALBUTEROL SULFATE 2.5 MG/0.5 ML INH NEB SOLN NEB SCH ×2 (14:26→19:49)
[2017-01-08 19:50] VITALS: O2SAT 97
[2017-01-08 22:00] VITALS: BP 141/66
[2017-01-08] MEDS: ATORVASTATIN 20 MG TAB PO SCH (22:44)
[2017-01-09 06:00] VITALS: BP 146/65
[2017-01-09] MEDS ORDERED: LevoFLOXacin 750 MG TABLET PO SCH (06:00)
[2017-01-09 06:26] LABS: MEAN CORPUSCULAR HGB CONC 32.8 g/dl (32.0-36.5); MEAN CORPUSCULAR VOLUME 79.3 fl (80.0-96.0); RED CELL DISTRIBUTION WIDTH 15.9 % (11.5-14.5); WHITE BLOOD COUNT 9.9 K/mm3 (4.0-10.0)
[2017-01-09] MEDS: LEVOTHYROXINE 75MCG TABLET (0.075MG) PO SCH (06:37)
[2017-01-09 06:42] LABS: ALBUMIN/GLOBULIN RATIO 0.75 (1.00-1.93); BILIRUBIN,TOTAL 0.6 MG/DL (0.2-1.0); CALCIUM LEVEL 9.2 MG/DL (8.8-10.2); CREATININE FOR GFR 1.21 MG/DL (0.55-1.02); GLOMERULAR FILTRATION RATE 45.7 (>39); POTASSIUM SERUM 4.2 MEQ/L (3.5-5.1)
[2017-01-09] MEDS: HumaLOG INSULIN (NovoLOG) PER UNIT SC SCH ×4 (07:30→20:54)
[2017-01-09] MEDS: ALBUTEROL SULFATE 2.5 MG/0.5 ML INH NEB SOLN NEB SCH ×4 (08:02→19:56)
[2017-01-09] MEDS: TIOTROPIUM INHALER/CAPSULE (SPIRIVA) INH SCH (08:02)
[2017-01-09] MEDS: SENNA 8.6 MG TAB (SENOKOT) PO SCH ×2 (08:09→20:43)
[2017-01-09] MEDS: DOCUSATE SODIUM 100 MG CAP PO SCH ×2 (08:10→20:43)
[2017-01-09] MEDS: OMEPRAZOLE 20 MG CAP PO SCH (08:10)
[2017-01-09] MEDS: FERROUS SULFATE 325MG TAB PO SCH ×2 (08:10→20:42)
[2017-01-09] MEDS: LOSARTAN 25 MG TAB PO SCH (08:10)
[2017-01-09] MEDS: APIXABAN 5 MG TAB (ELIQUIS) PO SCH ×2 (08:11→20:43)
[2017-01-09] MEDS: AMIODARONE 200 MG TAB (PACERONE) PO SCH (08:11)
[2017-01-09] MEDS: diltiaZEM **CD** 180 MG CAP PO SCH (08:11)
[2017-01-09] MEDS: MOM 30ML SUSPENSION UDC PO SCH (08:12)
[2017-01-09] MEDS: MIRALAX *UNIT DOSE* 17GM PACKET PO SCH ×2 (08:12→20:44)
[2017-01-09] MEDS ORDERED: FLEET ENEMA PR ONE ×2 (08:15→09:15)
[2017-01-09] MEDS: MEROPENEM INJ 1 GM in D5W MINI-BAG PLUS 100 ML IV SCH ×2 (08:15→20:44)
--- NOTE | 2017-01-09 09:01 | IPNPDOC ---
Subjective Date Seen The patient was seen on 01/09/17. Subjective Chief Complaint/HPI The patient is a 81-year-old female admitted with a reason for visit of Abdominal Pain, Anemia, Copd, Lexa. Events since last encounter still gets tightness under breasts across chest with deep breaths Still no BM Constitutional: Denies: Chills, Fever Pulmonary: Reports: Cough (unchanged - no hemoptysis), Denies: Dyspnea Cardiovascular: Reports: Chest Pain (chest pain with deep breaths across lower chest), Denies: Palpitations Gastrointestinal: Reports: Abdominal Pain (slight right abd pain), Constipation (still no BM x 2 weeks), Denies: Nausea, Vomiting Genitourinary: Denies: Dysuria Objective Physical Examination General Exam: Positive: Alert, No Acute Distress Chest Exam: Positive: Normal air movement, Rales (left basilar crackles. No Wheezes or rhonchi) Heart Exam: Positive: Rate Normal, Regular Rhythm Abdomen Exam: Positive: BS Hypoactive, Soft, Negative: Tenderness Extremity Exam: Negative: Edema Assessment /Plan Problems (1) Pneumonia Status: Acute Response to Treatment: Stable Problem Text: 01/09 - Denies SOB but still with pleuritic CP. Reports taking Eliquis religiously prior to admission, but may want to consider spirla CT to evaluate for PE D/W attending 01/08/17. atelectasis, effusion reported on cxr. rales noted on exam with elevated wbc, temp, etc. so empiric rx with Meropenem and Levaquin for pneumonia started.CXR showed chronic pleural thickening. B/C x 2 neg (2) Mural thickening of sigmoid colon Status: Acute Problem Text: Last colonoscopy 04/2016 - polypectomy performed. F/U Colonoscopy recommended in 1 year. Has iron def anemia and obstipation May need to repeat Colonoscopy, but patient really does not want to do this unless absolutely necessary For now, we will augment bowel care Continue clear liquids for now (3) Constipation Status: Chronic Problem Text: see above Give additional Fleets enema today (4) Iron deficiency anemia Status: Chronic Response to Treatment: Improving Problem Text: Hgb improved s/p 2 units PRBCs Continue iron supplement (5) GABBY (acute kidney injury) Status: Resolved Problem Text: Renal function back to baseline. s/p IVF Taking pos well (6) Atrial fibrillation Status: Chronic Response to Treatment: Stable Problem Text: rate controlled with Diltiazem and Amiodarone Cont. Eliquis (7) COPD (chronic obstructive pulmonary disease) Status: Chronic Response to Treatment: Stable Plan/VTE VTE Prophylaxis Ordered?: Yes (Eliquis) VS, I&O, 24H, Fishbone Vital Signs/I&O Vital Signs Date Time Temp Pulse Resp B/P (MAP) Pulse Ox O2 Delivery O2 Flow Rate FiO2 01/09/17 08:11 56 146/65 01/09/17 06:00 97.2 18 95 01/08/17 22:35 Nasal Cannula 3.0 I&O- Last 24 Hours up to 6 AM 01/09/17 06:00 Intake Total 2500 ml Output Total 2000 ml Balance 500 ml Laboratory Data 24H LABS Laboratory Tests 2 01/09/17 06:10: Anion Gap 3L, Glomerular Filtration Rate 45.7, Blood Urea Nitrogen 17, Creatinine 1.21H, Sodium Level 131L, Potassium Level 4.2, Chloride Level 93L, Carbon Dioxide Level 35H, Calcium Level 9.2, Aspartate Amino Transf (AST/SGOT) 15, Alanine Aminotransferase (ALT/SGPT) 21, Alkaline Phosphatase 72, Total Bilirubin 0.6, Total Protein 7.0, Albumin 3.0L, Albumin/Globulin Ratio 0.75L CBC/BMP Laboratory Tests 01/09/17 06:10 Red Blood Count 4.50, Mean Corpuscular Volume 79.3 L, Mean Corpuscular Hemoglobin 26.0 L, Mean Corpuscular Hemoglobin Concent 32.8, Red Cell Distribution Width 15.9 H, Calcium Level 9.2, Aspartate Amino Transf (AST/SGOT) 15, Alanine Aminotransferase (ALT/SGPT) 21, Alkaline Phosphatase 72, Total Bilirubin 0.6, Total Protein 7.0, Albumin 3.0 L Microbiology Microbiology 01/07/17 Blood Culture - Preliminary, Resulted No growth after 24 hours . All specim... 01/07/17 Blood Culture - Preliminary, Resulted No growth after 24 hours . All specim... Attending Note Attending Note starting to pass stool. epigastric/pleuritic pain is now gone. will likely be able to discharge tomorrow on levofloxacin 750 q48hrs for 5 doses. OSCAR ORTEZ PA-C Jan 09, 2017 09:01 David Pollack MD Jan 09, 2017 16:04
[2017-01-09] MEDS ORDERED: FLEET ENEMA PR PRN (09:15)
[2017-01-09 11:22] VITALS: BP 146/65
[2017-01-09] MEDS: FUROSEMIDE 40 MG TAB PO SCH (12:25)
[2017-01-09 14:00] VITALS: BP 123/72
[2017-01-09 19:57] VITALS: O2SAT 94
[2017-01-09] MEDS: ATORVASTATIN 20 MG TAB PO SCH (20:43)
[2017-01-09 22:00] VITALS: BP 157/69
[2017-01-10] MEDS: LEVOTHYROXINE 75MCG TABLET (0.075MG) PO SCH (05:29)
[2017-01-10 06:00] VITALS: BP 124/62
[2017-01-10] MEDS: TIOTROPIUM INHALER/CAPSULE (SPIRIVA) INH SCH (07:05)
[2017-01-10] MEDS: ALBUTEROL SULFATE 2.5 MG/0.5 ML INH NEB SOLN NEB SCH ×2 (07:05→11:14)
[2017-01-10] MEDS: HumaLOG INSULIN (NovoLOG) PER UNIT SC SCH (07:30)
[2017-01-10] MEDS ORDERED: LEVA750T7 PO (08:07)
[2017-01-10] MEDS ORDERED: MIRA33504 PO (08:07)
[2017-01-10] MEDS: MIRALAX *UNIT DOSE* 17GM PACKET PO SCH (08:34)
[2017-01-10] MEDS: MOM 30ML SUSPENSION UDC PO SCH (08:34)
[2017-01-10] MEDS: MEROPENEM INJ 1 GM in D5W MINI-BAG PLUS 100 ML IV SCH (08:34)
[2017-01-10] MEDS: APIXABAN 5 MG TAB (ELIQUIS) PO SCH (08:35)
[2017-01-10] MEDS: AMIODARONE 200 MG TAB (PACERONE) PO SCH (08:35)
[2017-01-10] MEDS: SENNA 8.6 MG TAB (SENOKOT) PO SCH (08:35)
[2017-01-10] MEDS: OMEPRAZOLE 20 MG CAP PO SCH (08:35)
[2017-01-10] MEDS: FERROUS SULFATE 325MG TAB PO SCH (08:35)
[2017-01-10] MEDS: LOSARTAN 25 MG TAB PO SCH (08:35)
[2017-01-10 08:36] VITALS: BP 124/62
[2017-01-10] MEDS: FUROSEMIDE 40 MG TAB PO SCH (08:36)
[2017-01-10] MEDS: diltiaZEM **CD** 180 MG CAP PO SCH (08:36)
[2017-01-10] MEDS: DOCUSATE SODIUM 100 MG CAP PO SCH (08:37)
[2017-01-10 08:42] LABS: MEAN CORPUSCULAR HEMOGLOBIN 25.5 pg (27.0-33.0); MEAN CORPUSCULAR HGB CONC 31.5 g/dl (32.0-36.5); MEAN CORPUSCULAR VOLUME 80.9 fl (80.0-96.0); RED CELL DISTRIBUTION WIDTH 16.1 % (11.5-14.5); WHITE BLOOD COUNT 8.8 K/mm3 (4.0-10.0)
[2017-01-10 09:02] LABS: ALBUMIN 2.9 GM/DL (3.2-5.2); ALBUMIN/GLOBULIN RATIO 0.74 (1.00-1.93); BILIRUBIN,TOTAL 0.4 MG/DL (0.2-1.0); CALCIUM LEVEL 8.8 MG/DL (8.8-10.2); CREATININE FOR GFR 1.44 MG/DL (0.55-1.02); GLOMERULAR FILTRATION RATE 37.4 (>39); POTASSIUM SERUM 4.3 MEQ/L (3.5-5.1); TOTAL PROTEIN 6.8 GM/DL (6.4-8.2)
--- NOTE | 2017-01-11 15:28 | DSES ---
DATE OF ADMISSION: 01/07/2017 DATE OF DISCHARGE: 01/10/2017 BRIEF HISTORY AND PHYSICAL: The patient is a 81-year-old patient of Dr. Woods with a history of chronic obstructive pulmonary disease (COPD) on chronic O2 who presented with discomfort across her lower chest and upper abdomen that developed on the day prior to admission and had continued through the evening. She came to the emergency room and was found to have normal EKG and without any acute ST-segment changes and negative cardiac enzymes. However, had an elevated white count and had a rattling cough and persistent discomfort without any clear etiology. She has not moved her bowels for 2 weeks as well. Past medical history is significant for coronary artery disease, status post left circumflex stent in 1988, left anterior descending times two in 2013, COPD with cor pulmonale, degenerative disc disease of the lumbosacral spine, obstructive sleep apnea not on C-PAP, borderline B12 deficiency, congestive heart failure, diffusely thickened aortic valve with reduced left leaf excursion, atrial fibrillation on Eliquis. She has chronic effacement of the left costophrenic angle with chronic pleural thickening and chronic left lower lobe atelectasis on chest x-rays. Pertinent labs on admission: white count 14 with a left shift of 83% neutrophils, hemoglobin9. Six hours later her hemoglobin was 7.9, white count 12. BUN 30, creatinine 1.63. CIP and troponin were negative. Chest x-ray as above. CT of the abdomen and pelvis showed thickened sigmoid colon under distension, spasm versus infectious or inflammatory pathology. Cannot exclude underlying neoplastic pathology, mild hepatomegaly. HOSPITAL COURSE: The patient was admitted for elevated white count with rales of the left base and cough concerning for pneumonia as well as lower chest and upper abdominal pain and constipation. 1. Pneumonia: The patient was placed on IV meropenem and Levaquin. Her white count normalized and her respiratory status remained stable. Her lower chest pain did improve. 2. Mural thickening of the sigmoid colon: The last colonoscopy was April 2016. Polypectomy was performed. Followup colonoscopy is recommended in 1 year. She has iron deficiency anemia and obstipation. May need to consider repeat colonoscopy. However, the patient does not want to do this unless absolutely necessary. Bowel care was aggressively given to the patient since she had not of her bowels for 2 weeks and she did successfully move her bowels here. Her hemoglobin improved with 2 units of packed red blood cells and remained stable throughout the hospitalization. And she has less upper abdominal and lower chest discomfort since having successful bowel movements and I feel that this is most likely the underlying cause of her symptoms. 3. Iron deficiency anemia: She did receive 2 units of packed red blood cells. Hemoglobin improved and has remained stable at 10.9 at the time of discharge. 4. Acute kidney injury: She was given a slight dose of IV fluids. Renal function has returned back to baseline and has remained stable throughout the hospitalization. This is most likely felt to be from dehydration. 5. Atrial fibrillation: Rate is well-controlled on diltiazem and amiodarone. She remained on Eliquis and had been taking this religiously leading up to the hospitalization. 6. Chronic obstructive pulmonary disease (COPD): Chronic stable on oxygen 2-1/2 liters nasal cannula. 7. Diabetes mellitus: Normally on metformin with a hemoglobin A1c of 5.9 as of December 31. The metformin was held due to the worsening in her renal function and it will remain on hold until she follows up with Dr. Woods. Creatinine is 1.4 at the time of discharge and will need to be followed periodically in the office and decide whether it is safe to restart metformin depending on renal function but at this point it is on hold. DISPOSITION: The patient is stable for discharge home. Followup with Dr. Woods or myself next week. Diet: 2 grams sodium consistent carbon. Activity as tolerated. Oxygen 2-1/2 liters nasal cannula. MEDICATIONS: - Levaquin 750 mg every 48 hours for 6 days - polyethylene [id number] grams daily - Ventolin HFA two puffs every 4 hours as needed for shortness of breath - albuterol neb every 6 hours - amiodarone 200 mg daily - Eliquis 5 mg twice a day - aspirin 81 mg daily - atorvastatin 40 mg at bedtime - diltiazem 180 mg daily - iron sulfate 325 mg twice a day - Breo Ellipta 200/25 one puff twice a day - furosemide 40 mg daily - levothyroxine 75 mcg daily - losartan 25 mg daily - omeprazole 20 mg daily - senna two tablets at bedtime - Spiriva daily - Metformin is on hold. DISCHARGE DIAGNOSES: 1. Pneumonia. 2. Upper abdominal pain and lower chest pain secondary to obstipation. 3. Sigmoid mural thickening. 4. Obstipation. 5. Acute on chronic iron deficiency anemia. 3. Acute on chronic renal failure. 4. Diabetes. 5. Hypothyroidism.
== END 2017-01-10 12:15 | disposition home or self-care (01) | DRG 190 ==
LOC: M ED 22:44 → M ED INP 01-07 10:37 → M MS5PR 01-07 12:45
PROVIDERS: ADMIT Family Medicine; ATTEND Family Medicine
PROC: 30233N1 Transfusion of Nonautologous Red Blood Cells into Peripheral Vein, Percutaneous Approach (ICD-10-PCS; principal; 2017-01-07)
DX: J44.0 Chronic obstructive pulmonary disease with (acute) lower respiratory infection (principal); J18.9 Pneumonia, unspecified organism; N17.9 Acute kidney failure, unspecified; Z66 Do not resuscitate; K59.09 Other constipation; D50.9 Iron deficiency anemia, unspecified; E03.9 Hypothyroidism, unspecified; K63.89 Other specified diseases of intestine; I48.91 Unspecified atrial fibrillation; E11.9 Type 2 diabetes mellitus without complications; Z79.01 Long term (current) use of anticoagulants; Z79.82 Long term (current) use of aspirin; Z79.899 Other long term (current) drug therapy; Z79.84 Long term (current) use of oral hypoglycemic drugs; Z99.81 Dependence on supplemental oxygen; Z95.9 Presence of cardiac and vascular implant and graft, unspecified

== ENCOUNTER → 2017-01-21 | Outpatient (REF) | payer MEDICARE, OTHER ==
[~2017-01-21] MED LIST changes: +FERR1TAB8 PO; +LEVA1TAB PO; +LEVA750T7 PO; +PRED10PA PO
[2017-01-21 21:16] LABS: MAGNESIUM LEVEL 2.3 MG/DL (1.8-2.4); PERCENT SATURATION 14.2 % (13.2-45.0)
== END ==
LOC: M LABDRWCV 17:54
PROVIDERS: ATTEND Physician Assistant
DX: I48.0 Paroxysmal atrial fibrillation (principal); D50.8 Other iron deficiency anemias

== ENCOUNTER 2017-03-10 22:38 | Observation (INO) | payer MEDICARE, BC, OTHER ==
[~2017-03-10] VITALS: Ht 160 cm; Wt 62.7 kg
[~2017-03-10 22:38] MED LIST changes: -LEVA1TAB PO; -PRED10PA PO
[2017-03-11] MEDS ORDERED: NS 1,000 ML IV ONE (01:15)
[2017-03-11 01:16] LABS: MEAN CORPUSCULAR HEMOGLOBIN 26.1 pg (27.0-33.0); MEAN CORPUSCULAR HGB CONC 31.9 g/dl (32.0-36.5); MEAN CORPUSCULAR VOLUME 81.8 fl (80.0-96.0); PLATELET COUNT, AUTOMATED 321 10^3/uL (150-450); RED CELL DISTRIBUTION WIDTH 18.6 % (11.5-14.5); WHITE BLOOD COUNT 20.8 10^3/uL (4.0-10.0)
[2017-03-11 01:17] LABS: CALCIUM LEVEL 9.2 MG/DL (8.8-10.2); CREATININE FOR GFR 1.48 MG/DL (0.55-1.02); GLOMERULAR FILTRATION RATE 36.2 (>39); POTASSIUM SERUM 4.2 MEQ/L (3.5-5.1)
[2017-03-11 01:20] LABS: ADD MANUAL DIFFER YES; DIFF SLIDE NUMBER 353
[2017-03-11 01:56] LABS: ANISOCYTOSIS 1+; POIKILOCYTOSIS 1+
[2017-03-11 01:57] LABS: PLATELET CLUMPS SMALL AMT
[2017-03-11] MEDS ORDERED: IPRATROPIUM 0.5MG/ALBUTEROL 2.5MG INH SOL UD 3ML (DUONEB)(J7620) NEB ONE ×2 (02:30→04:00)
[2017-03-11] MEDS ORDERED: HumuLIN R (REGULAR) INSULIN (NovoLIN R) **100U/ML** PER UNIT IV STA (03:19)
[2017-03-11 03:24] LABS: VENOUS BASE EXCESS 7.6 (-2.0-2.0); VENOUS O2 SATURATION 90.4 % (60.0-80.0); VENOUS PARTIAL PRESSURE CO2 56.6 mmHg (38.0-50.0); VENOUS STANDARD HCO3 31.2 MEQ/L; VENOUS TOTAL CO2 35.7 MEQ/L (24.0-28.0)
[2017-03-11] MEDS: IPRATROPIUM 0.5MG/ALBUTEROL 2.5MG INH SOL UD 3ML (DUONEB)(J7620) NEB SCH ×6 (04:15→20:00)
[2017-03-11] MEDS ORDERED: methylPREDNISolone INJ 125 MG/2 ML VIAL (J2930) IV ONE (04:30)
[2017-03-11] MEDS ORDERED: ACETAMINOPHEN 500 MG TAB PO PRN (05:00)
[2017-03-11] MEDS ORDERED: DEXTROSE 50% 50 ML SYRINGE IV PRN (05:00)
[2017-03-11] MEDS ORDERED: ONDANSETRON 4MG/2ML VIAL (J2405) IV PRN (05:00)
[2017-03-11] MEDS ORDERED: GLUCOSE 4 GM CHEW TABLET PO PRN (05:00)
[2017-03-11] MEDS ORDERED: GLUCAGON FOR INJ 1 MG VIAL (J1610) SC PRN (05:00)
[2017-03-11] MEDS ORDERED: VIAC8.5C PO (05:19)
[2017-03-11] MEDS ORDERED: NYST50SS SS (05:19)
[2017-03-11] MEDS ORDERED: LEVA1TAB2 PO (05:19)
[2017-03-11] MEDS ORDERED: PRED10PA PO (05:19)
[2017-03-11] MEDS: LEVOTHYROXINE 75MCG TABLET (0.075MG) PO SCH (06:00)
[2017-03-11 06:06] LABS: ABG HCO3 28.8 MEQ/L (22.0-26.0); ABG PARTIAL PRESSURE CO2 39.5 mmHg (35.0-45.0); ABG STANDARD HCO3 28.6 MEQ/L (22.0-26.0); ABG pH (ARTERIAL) 7.481 UNITS (7.350-7.450)
[2017-03-11] MEDS: FORMOTEROL FUMARATE 20 MCG/2 ML INHALATION SOLUTION (PERFOROMIST) INH SCH ×2 (08:00→20:00)
[2017-03-11] MEDS: BUDESONIDE 0.5 MG/2 ML INHALATION SUSPENSION INH SCH ×2 (08:00→20:00)
--- NOTE | 2017-03-11 08:45 | HPE ---
DATE OF ADMISSION: 03/11/2017 PRIMARY CARE PROVIDER: Darshan Woods MD CHIEF COMPLAINT: The patient came to the emergency room because of very high readings for glucose at home. The patient has been recently on a tapering course of steroid for chronic obstructive pulmonary disease (COPD) exacerbation. PAST MEDICAL HISTORY: 1. Gold stage IV COPD. 2. Chronic respiratory failure with hypoxia. 3. History of obstructive sleep apnea and was on continuous positive airway pressure (CPAP) before; however, has lost a lot of weight so recent nocturnal pulse oximetry did not show any obstructive sleep apnea. 4. Atrial fibrillation. 5. Diabetes. The patient was diet controlled. 6. Chronic kidney disease. 7. Pulmonary hypertension. 8. Diastolic congestive heart failure (CHF). 9. Aortic stenosis. 10. Coronary artery disease, status post stenting times three. HISTORY OF PRESENT ILLNESS: This is a 81-year-old female with advanced COPD and on home oxygen, who used to be diabetic but with weight loss and renal failure her A1/c has been less than 6 so she was taken off her metformin. She recently had a COPD exacerbation and was on a tapering course of steroid and since being on steroid her home sugars have been running high, more than 400 for several days, so she came to the emergency room for evaluation. In the emergency department, her initial sugar was found to be 496. The patient was given regular insulin intravenously. The patient was also noted to be short of breath. The patient denies any increased shortness of breath; however, her daughter feels that the patient's breathing has been bad over the past 2 days so the patient was also thought to have COPD exacerbation. The patient got several nebulizer treatments; however, she was noted to be hypoxic to 80 to 83% with her usual home dosage of oxygen of 2.5 liters, so her oxygen was increased to 3 liters with improvement of oxygen saturation to 86 to 87%. The patient was also given one dose of methylprednisone. The patient had an ABG done, which was a venous ABG and it did not show any significant CO2 retention and the pH was normal range. Subsequently, the patient was admitted to the hospital for acute on chronic respiratory failure with hypoxia due to COPD exacerbation and hyperglycemia due to steroids. The patient was also noted to have leukocytosis of 20,000, leukocytosis was thought to be related to the recent use of steroids. Past medical history also includes chronic vertigo, cor pulmonale, adenomatous colonic polyps, osteoarthritis, iron deficiency anemia, vitamin B12 deficiency. ALLERGIES: MYA INHIBITOR causes cough, PENICILLIN causes rash, SULFA causes rash, DOXYCYCLINE causes nausea and vomiting and severe diarrhea, abdominal cramps with CIPRO and FLAGYL. HOME MEDICATIONS: - albuterol two puff inhalation every 4 hours as needed for shortness of breath - albuterol nebulizer solution every 6 hours - amiodarone 200 mg by mouth daily - Eliquis 5 mg by mouth twice a day - aspirin 81 mg by mouth daily - atorvastatin 40 mg at bedtime - diltiazem 180 mg by mouth daily - ferrous sulfate 325 mg by mouth three times a day - Breo Ellipta 200/25 one puff inhalation twice a day - Lasix 40 mg daily - levofloxacin 500 mg daily - losartan 25 mg by mouth daily - nitroglycerin 0.4 mg sublingual as needed angina - nystatin 5 mL solution swish and spit four times a day - omeprazole 20 mg by mouth daily - prednisone tapering course - senna two tablets by mouth at bedtime - Spiriva one inhalation daily - Viactiv one chewable tablet by mouth daily PAST SURGICAL HISTORY: 1. Percutaneous transluminal coronary angioplasty in 2008. 2. Cholecystectomy. 3. Hysterectomy in 1972. 4. Appendectomy. 5. Colonoscopy multiple times. 6. Eye lid surgery. 7. Cataract surgery with lens implants. 8. Lumpectomy of right breast and needle biopsy. 9. Removal of mole from on the left breast. 10. Cardiac catheterization in 1988 and in 2000. 11. Esophagogastroduodenoscopy (EGD) done. SOCIAL HISTORY: Former smoker, quit more than 10 years ago. Does not abuse alcohol or recreational drugs. FAMILY HISTORY: Nothing pertinent. REVIEW OF SYSTEMS: The patient denies any fever or chills. She denies any chest pain or shortness of breath. Denies any cough or phlegm. Denies any abdominal pain, nausea, vomiting, or diarrhea. PHYSICAL EXAMINATION: VITAL SIGNS: Temperature 98.6, pulse 81, respiratory rate 20, blood pressure 121/71, pulse oximetry 85% with 3 liters nasal cannula. GENERAL: The patient is awake, alert, oriented times three. Sitting up in bed in mild to moderate respiratory distress. HEENT: Normocephalic, atraumatic. Moist mucous membranes. Anicteric eyes. CHEST: Bilateral poor air entry. Few scattered wheezes. CARDIOVASCULAR: S1, S2. Irregular. Tachycardia. Systolic murmur is present. ABDOMEN: Soft, nontender. Bowel sounds present. EXTREMITIES: 1+ pedal edema. LABORATORY DATA: WBC 20.8, hemoglobin 11.5, platelets 321. Neutrophils 85%. Sodium 135, potassium 4.2, chloride 109, bicarbonate 34, BUN 44, creatinine 1.48, glucose 496 and after insulin was 232. Calcium 9.2. ASSESSMENT AND PLAN: This is a 81-year-old female admitted for hyperglycemia due to steroids, leukocytosis, possibly also related to steroids and acute on chronic respiratory failure with hypoxia and chronic obstructive pulmonary disease (COPD) exacerbation. PLAN: 1. For acute respiratory failure with hypoxia, we will increase the patient's oxygen supplementation to maintain oxygen saturation of 88%. 2. COPD exacerbation. We will continue with nebulizers. The patient got methylprednisone 125 mg in the emergency department. Tomorrow we will give prednisone 10 mg by mouth, which was her tapering dose and she was supposed to reduce the dose further today but we will continue at 10 for now. 3. Hyperglycemia. The patient has a history of diabetes; however, with weight loss and renal failure the patient was not requiring any medications. Was on diet control; however, now with the steroids, the patient has hyperglycemic. The patient received IV regular insulin in the emergency department. We will continue the patient on sliding scale Lispro insulin after admission. 4. Atrial fibrillation. Rate is controlled at this point, we will continue with Eliquis, amiodarone, diltiazem CD. 5. Hyperlipidemia. We will continue with atorvastatin. 6. Hypertension. We will continue with diltiazem. 7. Iron deficiency anemia. We will continue with ferrous sulfate. 8. Congestive heart failure (CHF) and cor pulmonale. We will continue with Lasix 40 mg daily. 9. Hypothyroidism. We will continue with Synthroid. 10. Hypertension. We will continue with losartan and diltiazem. 11. Deep vein thrombosis (DVT) prophylaxis. The patient is on Eliquis. 12. Gastrointestinal prophylaxis. The patient is on omeprazole, we will continue. MTDD
--- NOTE | 2017-03-11 08:54 | REP ---
Portable chest, 03:34 a.m., single AP view, patient sitting: Comparison is 01/07/2017. Chronic cardiomegaly. Chronic effacement of the left costophrenic angle. Lung skinner are clear. The violetta, mediastinum, bony thorax are unremarkable for portable positioning. Impression: Chronic findings. No acute cardiopulmonary changes. Signed by Alex Hou MD 03/11/2017 08:46 A
[2017-03-11 09:28] LABS: MAGNESIUM LEVEL 2.5 MG/DL (1.8-2.4)
[2017-03-11] MEDS: ASPIRIN 81 MG ENTERIC TAB PO SCH (09:45)
[2017-03-11] MEDS: OMEPRAZOLE 20 MG CAP PO SCH (09:46)
[2017-03-11] MEDS: LOSARTAN 25 MG TAB PO SCH (09:46)
[2017-03-11] MEDS: AMIODARONE 200 MG TAB (PACERONE) PO SCH (09:46)
[2017-03-11] MEDS: NYSTATIN 500,000 U/5 ML SUSP UDC SS SCH ×4 (09:46→21:16)
[2017-03-11] MEDS: FERROUS SULFATE 325MG TAB PO SCH ×3 (09:46→21:16)
[2017-03-11] MEDS: SENOKOT S TAB PO SCH ×2 (09:46→21:16)
[2017-03-11] MEDS: diltiaZEM **CD** 180 MG CAP PO SCH (09:47)
[2017-03-11] MEDS: LevoFLOXacin 250 MG TABLET PO SCH (09:47)
[2017-03-11] MEDS: predniSONE 10 MG TAB PO SCH (09:47)
[2017-03-11] MEDS: HumaLOG INSULIN (NovoLOG) PER UNIT SC SCH ×4 (09:47→21:16)
[2017-03-11] MEDS: APIXABAN 5 MG TAB (ELIQUIS) PO SCH ×2 (09:47→21:16)
[2017-03-11 11:27] VITALS: BP 124/75
[2017-03-11 13:05] VITALS: BP 137/65
[2017-03-11 14:00] VITALS: BP 125/59
--- NOTE | 2017-03-11 16:33 | IPNPDOC ---
Subjective Date Seen The patient was seen on 03/11/17. Subjective Chief Complaint/HPI The patient is a 81-year-old female admitted with a reason for visit of Acute And Chronic Respiratory Failure With Hypoxia. Constitutional: Denies: Chills Eyes: Denies: Pain Pulmonary: Reports: Dyspnea Cardiovascular: Denies: Chest Pain Gastrointestinal: Denies: Nausea, Vomiting Objective Physical Examination Neck Exam: Negative: JVD Chest Exam: Positive: Wheezing Heart Exam: Positive: Rate Normal, Negative: Murmurs Extremity Exam: Negative: Edema Assessment /Plan Problems (1) Diabetes mellitus Status: Chronic Problem Text: recently metformin dc 2 CKD/weight loss/12/2016 A1C 5.9 HBG on admission 400s 2 steroid 03/11 start Levemir 5 qhs c SSNI (2) COPD (chronic obstructive pulmonary disease) Status: Acute Problem Text: resolving exacerbation pred 10 QD/levo 250 QD (RD) 03/11 CXR NAD (3) Atrial fibrillation Status: Chronic Response to Treatment: Stable Problem Text: Continue apixiban anticoag/dilt 180 QD/amio 200 QD rate control (4) Hypothyroidism Status: Chronic Problem Text: on HD LT4 75 (5) Diastolic CHF, chronic Permanent Comment: ECHO 04/2016: LVEF 75% Borderline concentric left ventricle hypertrophy with hyperkinetic wall motion. Mildly dilated left atrium with Doppler evidence of impairment of LV diastolic function but current estimated mean left atrial pressure upper limits of normal to slightly increased. Mildly dilated right heart chambers with Doppler evidence of at least moderate pulmonary hypertension. Inferior vena cava (IVC) upper limits of normal with normal respiratory collapse against an elevated central venous pressure at this time. Mild calcific aortic stenosis with very mild insufficiency. Moderately severe mitral annular calcification without inflow tract obstruction and only mild eccentric insufficiency. Last Edited By: Karla Garcia NP on Sep 01, 2016 08:56 Status: Chronic Problem Text: Euvolemic on current regimen (6) CKD (chronic kidney disease) stage 3, GFR 30-59 ml/min Status: Chronic Problem Text: baseline cr 1.5 Plan/VTE VTE Prophylaxis Ordered?: Yes VS, I&O, 24H, Fishbone Vital Signs/I&O Vital Signs Date Time Temp Pulse Resp B/P (MAP) Pulse Ox O2 Delivery O2 Flow Rate FiO2 03/11/17 14:00 97.7 62 18 125/59 (81) 93 Nasal Cannula 4.0 I&O- Last 24 Hours up to 6 AM 03/12/17 06:00 Intake Total 120 ml Balance 120 ml Laboratory Data 24H LABS Laboratory Tests 2 03/10/17 23:27: Bedside Glucose (Misc Panel) 490H 03/11/17 03:08: Blood Gas Bicarbonate Standard 31.2, Venous Blood pH 7.396, Venous Blood Partial Pressure CO2 56.6H, Venous Blood Partial Pressure O2 59.0H, Venous Blood Total Carbon Dioxide 35.7H, Venous Blood HCO3 34.0H, Venous Blood Oxygen Saturation 90.4H, Venous Blood Base Excess 7.6H 03/11/17 04:38: Bedside Glucose (Misc Panel) 232H 03/11/17 05:35: Blood Gas Bicarbonate Standard 28.6H, Arterial Blood pH 7.481H, Arterial Blood Partial Pressure CO2 39.5, Arterial Blood Partial Pressure O2 41.0*L, Arterial Blood Total CO2 30.0, Arterial Blood HCO3 28.8H, Arterial Blood Base Excess 5.0H , Arterial Blood Oxygen Saturation 79.6L 03/11/17 08:26: Bedside Glucose (Misc Panel) 322H 03/11/17 12:50: Bedside Glucose (Misc Panel) 331H Leroy Rueda M.D. Mar 11, 2017 16:33
[2017-03-11 17:01] LABS: MEAN CORPUSCULAR HEMOGLOBIN 26.4 pg (27.0-33.0); MEAN CORPUSCULAR HGB CONC 32.5 g/dl (32.0-36.5); MEAN CORPUSCULAR VOLUME 81.4 fl (80.0-96.0); PLATELET COUNT, AUTOMATED 251 10^3/uL (150-450); RED CELL DISTRIBUTION WIDTH 18.4 % (11.5-14.5); WHITE BLOOD COUNT 25.8 10^3/uL (4.0-10.0)
[2017-03-11 17:07] LABS: ADD MANUAL DIFFER YES; DIFF SLIDE NUMBER 315
[2017-03-11 17:32] LABS: ALKALINE PHOSPHATASE 77 U/L (45-117); ALT/SGPT 48 U/L (12-78); AST/SGOT 8 U/L (15-37); BILIRUBIN,TOTAL 0.8 MG/DL (0.2-1.0); BLOOD UREA NITROGEN 40 MG/DL (7-18); CARBON DIOXIDE LEVEL 32 MEQ/L (21-32); CHLORIDE LEVEL 99 MEQ/L (98-107); CREATININE FOR GFR 1.34 MG/DL (0.55-1.02); GLUCOSE, FASTING 220 MG/DL (83-110); MAGNESIUM LEVEL 2.3 MG/DL (1.8-2.4); SODIUM LEVEL 136 MEQ/L (136-145); TOTAL PROTEIN 5.8 GM/DL (6.4-8.2)
[2017-03-11 17:35] LABS: CALCIUM LEVEL 8.4 MG/DL (8.8-10.2)
[2017-03-11] MEDS: guaiFENesin ER 600 MG TAB PO PRN (18:12)
[2017-03-11] MEDS ORDERED: LEVEMIR (INSULIN DETEMIR) 1 UNITS/0.01ML SC SCH (21:00)
[2017-03-11] MEDS: ATORVASTATIN 20 MG TAB PO SCH (21:16)
[2017-03-11 22:00] VITALS: BP 142/66
[2017-03-11 22:20] LABS: ALBUMIN 2.7 GM/DL (3.2-5.2); ALBUMIN/GLOBULIN RATIO 0.87 (1.00-1.93); ANION GAP 5 MEQ/L (8-16)
[2017-03-12] MEDS: IPRATROPIUM 0.5MG/ALBUTEROL 2.5MG INH SOL UD 3ML (DUONEB)(J7620) NEB SCH ×4 (00:55→18:51)
[2017-03-12 03:20] VITALS: BP 161/72
[2017-03-12] MEDS: LevoFLOXacin 250 MG TABLET PO SCH (05:44)
[2017-03-12] MEDS: LEVOTHYROXINE 75MCG TABLET (0.075MG) PO SCH (05:44)
[2017-03-12 06:00] VITALS: BP 143/70
[2017-03-12 06:21] LABS: MEAN CORPUSCULAR HEMOGLOBIN 26.7 pg (27.0-33.0); MEAN CORPUSCULAR HGB CONC 32.2 g/dl (32.0-36.5); MEAN CORPUSCULAR VOLUME 82.9 fl (80.0-96.0); PLATELET COUNT, AUTOMATED 253 10^3/uL (150-450); RED CELL DISTRIBUTION WIDTH 18.7 % (11.5-14.5); WHITE BLOOD COUNT 23.9 10^3/uL (4.0-10.0)
[2017-03-12 06:28] LABS: ADD MANUAL DIFFER YES; DIFF SLIDE NUMBER 78
[2017-03-12 06:49] LABS: ALBUMIN 2.6 GM/DL (3.2-5.2); ALBUMIN/GLOBULIN RATIO 0.7 (1.00-1.93); BILIRUBIN,TOTAL 0.7 MG/DL (0.2-1.0); CALCIUM LEVEL 8.5 MG/DL (8.8-10.2); CREATININE FOR GFR 1.23 MG/DL (0.55-1.02); GLOMERULAR FILTRATION RATE 44.8 (>39); POTASSIUM SERUM 4.2 MEQ/L (3.5-5.1); TOTAL PROTEIN 6.3 GM/DL (6.4-8.2)
[2017-03-12 07:20] LABS: BANDS 10 % (< 11)
[2017-03-12 07:21] LABS: ANISOCYTOSIS 1+; POIKILOCYTOSIS 1+
[2017-03-12 07:26] LABS: DIFF SLIDE NUMBER 126
[2017-03-12] MEDS: FORMOTEROL FUMARATE 20 MCG/2 ML INHALATION SOLUTION (PERFOROMIST) INH SCH ×2 (07:46→23:06)
[2017-03-12] MEDS: BUDESONIDE 0.5 MG/2 ML INHALATION SUSPENSION INH SCH ×2 (07:46→23:06)
[2017-03-12 08:12] VITALS: BP 124/60
[2017-03-12] MEDS: HumaLOG INSULIN (NovoLOG) PER UNIT SC SCH ×4 (08:35→21:12)
[2017-03-12] MEDS: predniSONE 10 MG TAB PO SCH (08:45)
[2017-03-12] MEDS: AMIODARONE 200 MG TAB (PACERONE) PO SCH (08:45)
[2017-03-12] MEDS: NYSTATIN 500,000 U/5 ML SUSP UDC SS SCH ×4 (08:45→21:11)
[2017-03-12] MEDS: LOSARTAN 25 MG TAB PO SCH (08:46)
[2017-03-12] MEDS: ASPIRIN 81 MG ENTERIC TAB PO SCH (08:46)
[2017-03-12] MEDS: SENOKOT S TAB PO SCH ×2 (08:47→21:11)
[2017-03-12] MEDS: guaiFENesin ER 600 MG TAB PO PRN (08:47)
[2017-03-12] MEDS: OMEPRAZOLE 20 MG CAP PO SCH (08:47)
[2017-03-12] MEDS: FERROUS SULFATE 325MG TAB PO SCH ×3 (08:47→21:11)
[2017-03-12] MEDS: diltiaZEM **CD** 180 MG CAP PO SCH (08:47)
[2017-03-12] MEDS: APIXABAN 5 MG TAB (ELIQUIS) PO SCH ×2 (08:48→21:11)
--- NOTE | 2017-03-12 13:11 | IPNPDOC ---
Subjective Date Seen The patient was seen on 03/12/17. Subjective Chief Complaint/HPI The patient is a 81-year-old female admitted with a reason for visit of Acute And Chronic Respiratory Failure With Hypoxia. Events since last encounter Breathing is back to baseline. Constitutional: Denies: Chills, Fever Pulmonary: Reports: Dyspnea (chronic) Cardiovascular: Denies: Chest Pain, Palpitations, Orthopnea Gastrointestinal: Denies: Nausea, Vomiting, Abdominal Pain, Diarrhea, Constipation Objective Physical Examination General Exam: Positive: Alert, No Acute Distress Neck Exam: Negative: JVD Chest Exam: Positive: Other (decreased breath sounds at bases with chronic fibrotic sounds) Heart Exam: Positive: Rate Normal, Negative: Murmurs Extremity Exam: Negative: Edema Assessment /Plan Problems (1) Diabetes mellitus Status: Chronic Problem Text: 03/12 increase Levamir slightly BS runnning 200s - 300s Nurses will teach patient how to self administer insulin recently metformin dc 2 CKD/weight loss/12/2016 A1C 5.9 HBG on admission 400s 2 steroid (2) COPD (chronic obstructive pulmonary disease) Status: Acute Problem Text: 03/12 - still requiring 4 liters NC - usually on 2 06/17 - monitor trend. resolving exacerbation pred 10 QD/levo 250 QD (RD) 03/11 CXR NAD (3) Atrial fibrillation Status: Chronic Response to Treatment: Stable Problem Text: Continue apixiban anticoag/dilt 180 QD/amio 200 QD rate control (4) Hypothyroidism Status: Chronic Problem Text: on HD LT4 75 (5) Diastolic CHF, chronic Permanent Comment: ECHO 04/2016: LVEF 75% Borderline concentric left ventricle hypertrophy with hyperkinetic wall motion. Mildly dilated left atrium with Doppler evidence of impairment of LV diastolic function but current estimated mean left atrial pressure upper limits of normal to slightly increased. Mildly dilated right heart chambers with Doppler evidence of at least moderate pulmonary hypertension. Inferior vena cava (IVC) upper limits of normal with normal respiratory collapse against an elevated central venous pressure at this time. Mild calcific aortic stenosis with very mild insufficiency. Moderately severe mitral annular calcification without inflow tract obstruction and only mild eccentric insufficiency. Last Edited By: Karla Garcia NP on Sep 01, 2016 08:56 Status: Chronic Problem Text: Euvolemic on current regimen (6) CKD (chronic kidney disease) stage 3, GFR 30-59 ml/min Status: Chronic Problem Text: baseline cr 1.5 Plan/VTE VTE Prophylaxis Ordered?: Yes Plan Family Medicine Attending Note: Patient seen and examined early this morning; I discussed her care with RIGO Hernandez and I agree with her note as documented. The patient denied increased dyspnea above baseline despite increased O2 requirement - will monitor as she has a resolving COPD exacerbation. WBCs remain high, likely due to steroids. Levemir was increased from 5 units to 10 units for tonight to better control her glucose levels, and nursing is going to give her insulin teaching today. Hopefully she will be stable for discharge tomorrow. (KES) VS, I&O, 24H, Fishbone Vital Signs/I&O Vital Signs Date Time Temp Pulse Resp B/P (MAP) Pulse Ox O2 Delivery O2 Flow Rate FiO2 03/12/17 08:47 63 124/60 03/12/17 08:19 Nasal Cannula 4.0 03/12/17 08:12 98.4 23 93 I&O- Last 24 Hours up to 6 AM 03/13/17 06:00 Intake Total 360 ml Output Total 0 ml Balance 360 ml Laboratory Data 24H LABS Laboratory Tests 2 03/11/17 16:29: Bedside Glucose (Misc Panel) 236H 03/11/17 16:50: White Blood Count 25.8H, Red Blood Count 3.71L, Hemoglobin 9.8L, Hematocrit 30.2L, Mean Corpuscular Volume 81.4, Mean Corpuscular Hemoglobin 26.4L, Mean Corpuscular Hemoglobin Concent 32.5, Red Cell Distribution Width 18.4H, Platelet Count 251, Neutrophils (%) (Auto) , Neutrophils # (Auto) , Platelet Estimate NORMAL, Anion Gap 5L, Blood Urea Nitrogen 40H, Creatinine 1.34H, Sodium Level 136, Potassium Level 4.0, Chloride Level 99, Carbon Dioxide Level 32, Calcium Level 8.4L, Aspartate Amino Transf (AST/SGOT) 8L, Alanine Aminotransferase (ALT/SGPT) 48, Alkaline Phosphatase 77, Total Bilirubin 0.8, Total Protein 5.8L, Albumin 2.7L, Magnesium Level 2.3, Albumin/Globulin Ratio 0.87L 03/11/17 20:43: Bedside Glucose (Misc Panel) 261H 03/12/17 06:02: White Blood Count 23.9H, Red Blood Count 3.75L, Hemoglobin 10.0L, Hematocrit 31.1L, Mean Corpuscular Volume 82.9, Mean Corpuscular Hemoglobin 26.7L, Mean Corpuscular Hemoglobin Concent 32.2, Red Cell Distribution Width 18.7H, Platelet Count 253, Neutrophils # (Auto) , Platelet Estimate NORMAL, Anion Gap 3L, Blood Urea Nitrogen 39H, Creatinine 1.23H, Sodium Level 136, Potassium Level 4.2, Chloride Level 98, Carbon Dioxide Level 35H, Calcium Level 8.5L, Aspartate Amino Transf (AST/SGOT) 11L, Alanine Aminotransferase (ALT/SGPT) 41, Alkaline Phosphatase 80, Total Bilirubin 0.7, Total Protein 6.3L, Albumin 2.6L, Albumin/Globulin Ratio 0.70L, Neutrophils 81H, Band Neutrophils 10, Lymphocytes (Manual) 4L, Monocytes (Manual) 5, Poikilocytosis 1+, Anisocytosis 1+, Glomerular Filtration Rate 44.8 03/12/17 11:31: Bedside Glucose (Misc Panel) 256H CBC/BMP Laboratory Tests 03/11/17 16:50 Red Blood Count 3.71 L, Mean Corpuscular Volume 81.4, Mean Corpuscular Hemoglobin 26.4 L, Mean Corpuscular Hemoglobin Concent 32.5, Red Cell Distribution Width 18.4 H, Neutrophils (%) (Auto) , Neutrophils # (Auto) , Calcium Level 8.4 L, Aspartate Amino Transf (AST/SGOT) 8 L, Alanine Aminotransferase (ALT/SGPT) 48, Alkaline Phosphatase 77, Total Bilirubin 0.8, Total Protein 5.8 L, Albumin 2.7 L 03/12/17 06:02 Red Blood Count 3.75 L, Mean Corpuscular Volume 82.9, Mean Corpuscular Hemoglobin 26.7 L, Mean Corpuscular Hemoglobin Concent 32.2, Red Cell Distribution Width 18.7 H, Neutrophils # (Auto) , Calcium Level 8.5 L, Aspartate Amino Transf (AST/SGOT) 11 L, Alanine Aminotransferase (ALT/SGPT) 41, Alkaline Phosphatase 80, Total Bilirubin 0.7, Total Protein 6.3 L, Albumin 2.6 L OSCAR ORTEZ PA-C Mar 12, 2017 13:11 BEATA IRVING MD Mar 12, 2017 14:00
[2017-03-12 13:52] VITALS: BP 155/65
[2017-03-12 20:05] VITALS: O2SAT 93
[2017-03-12] MEDS ORDERED: LEVEMIR (INSULIN DETEMIR) 1 UNITS/0.01ML SC SCH (21:00)
[2017-03-12] MEDS: ATORVASTATIN 20 MG TAB PO SCH (21:11)
[2017-03-12 22:00] VITALS: BP 151/65
[2017-03-13] MEDS: IPRATROPIUM 0.5MG/ALBUTEROL 2.5MG INH SOL UD 3ML (DUONEB)(J7620) NEB SCH ×3 (01:29→13:29)
[2017-03-13] MEDS: LevoFLOXacin 250 MG TABLET PO SCH (05:44)
[2017-03-13] MEDS: LEVOTHYROXINE 75MCG TABLET (0.075MG) PO SCH (05:44)
[2017-03-13 06:00] VITALS: BP 104/63
[2017-03-13] MEDS: FORMOTEROL FUMARATE 20 MCG/2 ML INHALATION SOLUTION (PERFOROMIST) INH SCH (07:28)
[2017-03-13] MEDS: BUDESONIDE 0.5 MG/2 ML INHALATION SUSPENSION INH SCH (07:28)
[2017-03-13] MEDS: FERROUS SULFATE 325MG TAB PO SCH (08:41)
[2017-03-13] MEDS: HumaLOG INSULIN (NovoLOG) PER UNIT SC SCH ×2 (08:41→12:47)
[2017-03-13] MEDS: OMEPRAZOLE 20 MG CAP PO SCH (08:41)
[2017-03-13] MEDS: LOSARTAN 25 MG TAB PO SCH (08:41)
[2017-03-13 08:42] VITALS: BP 127/64
[2017-03-13] MEDS: NYSTATIN 500,000 U/5 ML SUSP UDC SS SCH ×2 (08:42→12:47)
[2017-03-13] MEDS: APIXABAN 5 MG TAB (ELIQUIS) PO SCH (08:42)
[2017-03-13] MEDS: predniSONE 10 MG TAB PO SCH (08:42)
[2017-03-13] MEDS: diltiaZEM **CD** 180 MG CAP PO SCH (08:42)
[2017-03-13] MEDS: ASPIRIN 81 MG ENTERIC TAB PO SCH (08:42)
[2017-03-13] MEDS: AMIODARONE 200 MG TAB (PACERONE) PO SCH (08:42)
[2017-03-13] MEDS: SENOKOT S TAB PO SCH (08:43)
[2017-03-13] MEDS ORDERED: INFLUENZA VIRUS VACCINE HIGH DOSE 0.5 ML SYRINGE (90662) IM ONE (09:00)
[2017-03-13] MEDS ORDERED: LEVA1TAB PO (12:45)
[2017-03-13] MEDS ORDERED: INSUDET SC (12:45)
[2017-03-13] MEDS ORDERED: PRED10TA2 PO (12:45)
--- NOTE | 2017-03-13 16:02 | DSES ---
DATE OF ADMISSION: 03/11/2017 DATE OF DISCHARGE: 03/13/2017 BRIEF HISTORY AND PHYSICAL: The patient is a 81-year patient of Dr. Ram who has severe COPD and has recently been treated with Levaquin and a tapering course of prednisone whose blood sugars became very high at home and she was instructed to come to the hospital. She is not able to take metformin due to chronic kidney disease and concern for metabolic acidosis. She was also found to be hypoxic in the emergency room with oxygen saturations of 80-83% on her usual 2-1/2 liters of oxygen. They did improve to 87% on 3 liters but still were low for her. PAST MEDICAL HISTORY: Is significant for Gold stage IV COPD, chronic respiratory failure with hypoxemia on chronic oxygen, obstructive sleep apnea, but with weight loss, her most recent NPSG did not show JASPAL, she has atrial fibrillation on chronic anticoagulation, diabetes that was previously diet controlled, chronic kidney disease stage III, pulmonary hypertension, diastolic congestive heart failure, aortic stenosis and coronary artery disease status post stenting times three. PERTINENT LABS ON ADMISSION: Her sodium was 135, potassium 4.2, BUN 44, creatinine 1.48, glucose 496, white count 20, hemoglobin 11.5, platelets 321 thousand. Blood gas showed a pH of 7.48, pCO2 of 39, pO2 of 41, oxygen saturations 79%. Chest x-ray was unremarkable with exception of her chronic changes. HOSPITAL COURSE: 1. The patient was admitted for acute on chronic respiratory failure, oxygen was increased to 4 liters. She was given IV Solu-Medrol dose for COPD exacerbation and placed back on her normal prednisone and maintained on Levaquin. Her lungs are fairly clear at the time of discharge without any wheezes but her oxygen saturations remain in the low 90s, we cut her down to 3 liters today, she is maintaining at about 91%. She will stay on 3 liters which is slightly more than her usual home dose of oxygen that was two and half, and will keep her on 10 mg of prednisone until followup in the office and consider tapering at that time. She remains on Levaquin as well. 2. Hyperglycemia. She is not able to take metformin due to chronic kidney disease and so she has been started on long-acting insulin and here in the hospital she was placed on Levemir 10 units. Her sugars are running around 200-250. I will keep her on 10 units. She may need slightly more than that, but we will probably be tapering her off of her prednisone and her sugars will likely improve. Levaquin is also likely contributing to her elevated blood sugars but we will keep her on 10 units for now. She has been taught how to administer the insulin and she has a glucometer at home. We have also talked about symptoms of hypoglycemia and how to manage that and the need to have a bedtime snack and not to skip meals when on insulin. DISPOSITION: The patient is stable for discharge home. MEDICATIONS: - she will actually go home and Lantus insulin pen 10 units daily - Levaquin 250 mg daily - prednisone 10 mg daily - albuterol two puffs every 4 hours as needed for shortness of breath and nebulizers every 6 hours - amiodarone 200 mg daily - Eliquis 5 mg twice a day - aspirin 81 mg daily - atorvastatin 40 mg in the evening - diltiazem 180 mg daily - iron sulfate 325 mg three times a day - Breo Ellipta 200/25 mcg twice a day - furosemide 40 mg daily - levothyroxine 75 mcg daily - losartan 25 mg daily - nystatin 5 mL swish and swallow four times a day - omeprazole 20 mg daily - Senna two tablets in the evening - Spiriva 18 mcg daily - Viactiv chews daily DISCHARGE DIAGNOSES: 1. Acute on chronic respiratory failure with hypoxemia. 2. Steroid induced hyperglycemia / diabetes. 3. COPD exacerbation. 4. Diastolic congestive heart failure.
== END 2017-03-13 14:00 | disposition home or self-care (01) ==
LOC: EDBD 22:38 → M ED 22:38 → M ED INP 03-11 04:58 → M MSPAV 03-11 12:59
PROVIDERS: ADMIT Internal Medicine Nephrology; ATTEND Family Medicine
DX: J96.11 Chronic respiratory failure with hypoxia (principal); Z99.81 Dependence on supplemental oxygen; G47.33 Obstructive sleep apnea (adult) (pediatric); I48.91 Unspecified atrial fibrillation; Z79.02 Long term (current) use of antithrombotics/antiplatelets; N18.3 Chronic kidney disease, stage 3 (moderate); E11.65 Type 2 diabetes mellitus with hyperglycemia; E78.5 Hyperlipidemia, unspecified; E03.9 Hypothyroidism, unspecified; I50.30 Unspecified diastolic (congestive) heart failure; I25.10 Atherosclerotic heart disease of native coronary artery without angina pectoris; I37.0 Nonrheumatic pulmonary valve stenosis; Z98.61 Coronary angioplasty status; Z79.51 Long term (current) use of inhaled steroids; Z79.52 Long term (current) use of systemic steroids; D50.9 Iron deficiency anemia, unspecified; E53.8 Deficiency of other specified B group vitamins; I35.0 Nonrheumatic aortic (valve) stenosis; Z79.899 Other long term (current) drug therapy; I27.81 Cor pulmonale (chronic); Z87.891 Personal history of nicotine dependence
CPT/HCPCS: 36415; 36600; 71010; 80053; 82803; 83735; 83930; 85025; 90662; 94640; 96365; 96375; 97161; 99285; G0008; G0378; G8978; G8979; G8980; J2930

== ENCOUNTER 2017-06-17 11:14 | Emergency (ER) | payer MEDICARE, BC, OTHER ==
[2017-06-17 12:16] LABS: BASO # 0.1 10^3/uL (0.0-0.2); BASO % 0.9 % (0.0-1.0); EOS # 0.5 10^3/uL (0.0-0.50); EOS % 5.5 % (0.0-3.0); HEMATOCRIT 38.2 % (36.0-47.0); HEMOGLOBIN 11.6 g/dl (12.0-16.0); IMMATURE GRANULOCYTE % 0.4 % (0-0); LYMPH # 2.3 10^3/uL (1.5-4.5); LYMPH % 23.4 % (24.0-44.0); MEAN CORPUSCULAR HEMOGLOBIN 26.5 pg (27.0-33.0); MEAN CORPUSCULAR HGB CONC 30.4 g/dl (32.0-36.5); MEAN CORPUSCULAR VOLUME 87.2 fl (80.0-96.0); MONO # 0.7 10^3/uL (0.0-0.8); MONO % 6.7 % (0.0-5.0); NEUTROPHILS # 6.1 10^3/uL (1.8-7.7); NEUTROPHILS % 63.1 % (36.0-66.0); PLATELET COUNT, AUTOMATED 361 10^3/uL (150-450); RED BLOOD COUNT 4.38 10^6/uL (4.00-5.40); RED CELL DISTRIBUTION WIDTH 15.9 % (11.5-14.5); WHITE BLOOD COUNT 9.7 10^3/uL (4.0-10.0)
[2017-06-17 12:23] LABS: ANION GAP 6 MEQ/L (8-16); BLOOD UREA NITROGEN 37 MG/DL (7-18); CALCIUM LEVEL 9.9 MG/DL (8.8-10.2); CARBON DIOXIDE LEVEL 36 MEQ/L (21-32); CHLORIDE LEVEL 96 MEQ/L (98-107); CREATININE FOR GFR 1.54 MG/DL (0.55-1.02); GLOMERULAR FILTRATION RATE 34.6 (>39); GLUCOSE, FASTING 90 MG/DL (83-110); POTASSIUM SERUM 4.3 MEQ/L (3.5-5.1); SODIUM LEVEL 138 MEQ/L (136-145)
[2017-06-17 12:28] LABS: CPK CREATINE PHOSPHOKINASE 60 U/L (26-192); MB/CK RELATIVE INDEX 1.66 (< OR =4); NT-PRO BNP 346 PG/ML (<450); TROPONIN I < 0.02 NG/ML (< 0.10)
[2017-06-17] MEDS: IPRATROPIUM 0.5MG/ALBUTEROL 2.5MG INH SOL UD 3ML (DUONEB)(J7620) NEB ×3 (12:31→13:34)
== END 2017-06-17 16:02 | disposition home or self-care (01) ==
LOC: M ED 11:14
DX: J44.1 Chronic obstructive pulmonary disease with (acute) exacerbation (principal); I25.10 Atherosclerotic heart disease of native coronary artery without angina pectoris; I50.9 Heart failure, unspecified; E11.9 Type 2 diabetes mellitus without complications; I12.9 Hypertensive chronic kidney disease with stage 1 through stage 4 chronic kidney disease, or unspecified chronic kidney disease; N18.3 Chronic kidney disease, stage 3 (moderate); D64.9 Anemia, unspecified; E78.00 Pure hypercholesterolemia, unspecified; I48.91 Unspecified atrial fibrillation; Z98.61 Coronary angioplasty status; Z87.891 Personal history of nicotine dependence; Z79.02 Long term (current) use of antithrombotics/antiplatelets; Z79.4 Long term (current) use of insulin
CPT/HCPCS: 71046

== ENCOUNTER → 2017-07-01 | Outpatient (CLI) | payer MEDICARE, BC, OTHER | LOC: M CARPUL 11:23 | DX: I35.0 Nonrheumatic aortic (valve) stenosis (principal) ==

== ENCOUNTER → 2017-07-01 | Outpatient (CLI) | payer MEDICARE, BC, OTHER ==
[~2017-07-01] MED LIST changes: -8 HO650T2 PO; -ACET1TAB17 PO; -ACET20%4ML INH; -ADV250INH INH; -ALB2.5NEB NEB; -ALBU0.63 INH; -ALBU17IN INH; -AMIO200T37 PO; -AMIO20TA PO; -ASPI81TA24 PO; -ATOR40TA75 PO; -ATOR80TA59 PO; -BISA10SU PR; -BREO1INH3 INH; -CARD180C4 PO; -CART300C PO; -CEFT500T3 PO; -CELE10TA PO; -CLOP75TA2 PO; -COLA100C5 PO; -COZA1TAB PO; -DILT180C74 PO; -DILT360C16 PO; -DILT360C2 PO; -DOXY100C PO; -DULC10SU2 PO; -DULC5TAB PO; -ELIQ5TAB PO; -FERR1TAB8 PO; -FERR325T3 PO; -FLUC10TA PO; -FURO40TA2 PO; -INSUDET SC; -IPRA2IN INH; -IRON65TA PO; +ISOVUE-370 76% 100ML VIAL (Q9967) As Ordered; -LASI20TA PO; -LEVA1TAB2 PO; -LEVA750T7 PO; -LEVO50TA5 PO; -LEVO75TA4 PO; -LIPI80TA PO; -LOSA25TA8 PO; -METF10004 PO; -MILKSUS PO; -MIRA33504 PO; -MUCI600T37 PO; -NITR4TASL SL; -NYST10OI TOP; -NYST1POW9 TOP; -NYST50SS SS; -OCEA0.654; -OMEP20CA3 PO; -PACE200T PO; -PANT40TA2 PO; -PEG1POW PO; -PRED10TA2 PO; -PRED20TA PO; -PRIL20CA9 PO; -REGL5TAB2 PO; -SENN18TA PO; -SENO8.6T10 PO; -SPIR1CAP INH; -SUCR1TA PO; -SYNT50TA PO; -SYNT75TA PO; -TYLE167L PO; -VIAC8.5C PO; -VIACCHW4 PO; -VIBR100C PO; -VITA10006 PO; -VITA100066 PO; -VITA100T20 PO; -VITMTA PO
== END ==
LOC: M RAD 10:28
DX: J98.11 Atelectasis (principal); J43.9 Emphysema, unspecified; J96.11 Chronic respiratory failure with hypoxia; I35.0 Nonrheumatic aortic (valve) stenosis
CPT/HCPCS: Q9967

== ENCOUNTER 2017-07-21 13:31 | Emergency (ER) | payer MEDICARE, BC, OTHER ==
[2017-07-21 15:11] LABS: BASO # 0.1 10^3/uL (0.0-0.2); EOS # 0.4 10^3/uL (0.0-0.50); EOS % 4.9 % (0.0-3.0); HEMATOCRIT 38.2 % (36.0-47.0); HEMOGLOBIN 11.7 g/dl (12.0-16.0); IMMATURE GRANULOCYTE # 0.1 10^3/uL (0-0); IMMATURE GRANULOCYTE % 0.9 % (0-0); LYMPH # 2.2 10^3/uL (1.5-4.5); LYMPH % 28.7 % (24.0-44.0); MEAN CORPUSCULAR HEMOGLOBIN 26.6 pg (27.0-33.0); MEAN CORPUSCULAR HGB CONC 30.6 g/dl (32.0-36.5); MEAN CORPUSCULAR VOLUME 86.8 fl (80.0-96.0); MONO # 0.7 10^3/uL (0.0-0.8); MONO % 8.6 % (0.0-5.0); NEUTROPHILS # 4.4 10^3/uL (1.8-7.7); NEUTROPHILS % 55.9 % (36.0-66.0); PLATELET COUNT, AUTOMATED 415 10^3/uL (150-450); RED CELL DISTRIBUTION WIDTH 15.9 % (11.5-14.5); WHITE BLOOD COUNT 7.8 10^3/uL (4.0-10.0)
[2017-07-21 15:27] LABS: INR 1.22; PROTHROMBIN TIME 15.6 SECONDS (12.4-14.5)
[2017-07-21 15:28] LABS: PARTIAL THROMBOPLASTIN TIME 32.7 SECONDS (26.8-37.9)
[2017-07-21 15:42] LABS: BLOOD UREA NITROGEN 30 MG/DL (7-18); CALCIUM LEVEL 8.8 MG/DL (8.8-10.2); CARBON DIOXIDE LEVEL 36 MEQ/L (21-32); CHLORIDE LEVEL 99 MEQ/L (98-107); CPK CREATINE PHOSPHOKINASE 53 U/L (26-192); CREATININE FOR GFR 1.41 MG/DL (0.55-1.30); GLUCOSE, FASTING 148 MG/DL (70-100); POTASSIUM SERUM 4.4 MEQ/L (3.5-5.1); TROPONIN I < 0.02 NG/ML (< 0.10)
[2017-07-21 15:43] LABS: MB/CK RELATIVE INDEX 1.88 (< OR =4)
[2017-07-21 19:21] LABS: ANION GAP 5 MEQ/L (8-16); SODIUM LEVEL 140 MEQ/L (136-145)
== END 2017-07-21 16:18 | disposition home or self-care (01) ==
LOC: M ED 13:31
DX: G45.9 Transient cerebral ischemic attack, unspecified (principal); E11.9 Type 2 diabetes mellitus without complications; I11.0 Hypertensive heart disease with heart failure; I50.9 Heart failure, unspecified; J44.9 Chronic obstructive pulmonary disease, unspecified; E78.00 Pure hypercholesterolemia, unspecified; E53.8 Deficiency of other specified B group vitamins; M81.0 Age-related osteoporosis without current pathological fracture; Z99.81 Dependence on supplemental oxygen; Z79.01 Long term (current) use of anticoagulants; Z87.891 Personal history of nicotine dependence
CPT/HCPCS: 71045

== ENCOUNTER 2017-07-23 01:53 | Emergency (ER) | payer MEDICARE, BC, OTHER ==
[2017-07-23 03:11] LABS: BEDSIDE GLUCOSE 88 MG/DL (83-110)
[2017-07-23 03:12] LABS: BASO # 0.1 10^3/uL (0.0-0.2); BASO % 1.2 % (0.0-1.0); EOS # 0.4 10^3/uL (0.0-0.50); EOS % 4.3 % (0.0-3.0); HEMATOCRIT 38.5 % (36.0-47.0); HEMOGLOBIN 11.8 g/dl (12.0-16.0); IMMATURE GRANULOCYTE # 0.1 10^3/uL (0-0); IMMATURE GRANULOCYTE % 0.8 % (0-0); LYMPH # 2.5 10^3/uL (1.5-4.5); LYMPH % 27.6 % (24.0-44.0); MEAN CORPUSCULAR HEMOGLOBIN 26.6 pg (27.0-33.0); MEAN CORPUSCULAR HGB CONC 30.6 g/dl (32.0-36.5); MEAN CORPUSCULAR VOLUME 86.7 fl (80.0-96.0); MONO # 0.8 10^3/uL (0.0-0.8); MONO % 8.7 % (0.0-5.0); NEUTROPHILS # 5.2 10^3/uL (1.8-7.7); NEUTROPHILS % 57.4 % (36.0-66.0); PLATELET COUNT, AUTOMATED 390 10^3/uL (150-450); RED BLOOD COUNT 4.44 10^6/uL (4.00-5.40); RED CELL DISTRIBUTION WIDTH 15.9 % (11.5-14.5); WHITE BLOOD COUNT 9.1 10^3/uL (4.0-10.0)
[2017-07-23 03:32] LABS: INR 1.23; PROTHROMBIN TIME 15.7 SECONDS (12.4-14.5)
[2017-07-23 03:33] LABS: PARTIAL THROMBOPLASTIN TIME 34.5 SECONDS (26.8-37.9)
[2017-07-23 03:56] LABS: ANION GAP 7 MEQ/L (8-16); BLOOD UREA NITROGEN 34 MG/DL (7-18); CALCIUM LEVEL 9.2 MG/DL (8.8-10.2); CARBON DIOXIDE LEVEL 37 MEQ/L (21-32); CHLORIDE LEVEL 100 MEQ/L (98-107); CPK CREATINE PHOSPHOKINASE 47 U/L (26-192); CREATININE FOR GFR 1.47 MG/DL (0.55-1.30); GLOMERULAR FILTRATION RATE 36.5 (>39); GLUCOSE, FASTING 89 MG/DL (70-100); POTASSIUM SERUM 3.6 MEQ/L (3.5-5.1); SODIUM LEVEL 144 MEQ/L (136-145); TROPONIN I < 0.02 NG/ML (< 0.10)
[2017-07-23 03:57] LABS: MB/CK RELATIVE INDEX 2.12 (< OR =4)
== END 2017-07-23 08:19 | disposition home or self-care (01) ==
LOC: M ED 01:53
DX: M54.12 Radiculopathy, cervical region (principal); I45.10 Unspecified right bundle-branch block; R90.82 White matter disease, unspecified; I67.89 Other cerebrovascular disease; J44.9 Chronic obstructive pulmonary disease, unspecified; Z99.81 Dependence on supplemental oxygen; Z79.899 Other long term (current) drug therapy; Z79.82 Long term (current) use of aspirin; Z79.4 Long term (current) use of insulin; Z79.01 Long term (current) use of anticoagulants; Z88.0 Allergy status to penicillin; Z88.2 Allergy status to sulfonamides; Z88.8 Allergy status to other drugs, medicaments and biological substances; Z87.891 Personal history of nicotine dependence
CPT/HCPCS: 70551

== ENCOUNTER 2017-07-28 12:42 | Inpatient (IN) | payer MEDICARE, BC, OTHER ==
[2017-07-28 14:59] LABS: ALBUMIN 3.7 GM/DL (3.2-5.2); ALBUMIN/GLOBULIN RATIO 1.16 (1.00-1.93); ALT/SGPT 33 U/L (12-78); ANION GAP 11 MEQ/L (8-16); AST/SGOT 26 U/L (7-37); BILIRUBIN,DIRECT < 0.1 MG/DL (0.0-0.2); BILIRUBIN,TOTAL 0.3 MG/DL (0.2-1.0); BLOOD UREA NITROGEN 28 MG/DL (7-18); CALCIUM LEVEL 9.1 MG/DL (8.8-10.2); CARBON DIOXIDE LEVEL 29 MEQ/L (21-32); CHLORIDE LEVEL 101 MEQ/L (98-107); CPK CREATINE PHOSPHOKINASE 62 U/L (26-192); CREATININE FOR GFR 1.45 MG/DL (0.55-1.30); GLOMERULAR FILTRATION RATE 37.1 (>39); GLUCOSE, FASTING 109 MG/DL (70-100); POTASSIUM SERUM 4.2 MEQ/L (3.5-5.1); SODIUM LEVEL 141 MEQ/L (136-145); THYROXINE (T4) 13.9 UG/DL (4.5-12.0); TOTAL PROTEIN 6.9 GM/DL (6.4-8.2); TROPONIN I < 0.02 NG/ML (< 0.10)
[2017-07-28] MEDS: methylPREDNISolone INJ 125 MG/2 ML VIAL (J2930) IV (15:01)
[2017-07-28 15:03] LABS: BASO # 0.1 10^3/uL (0.0-0.2); BASO % 1.2 % (0.0-1.0); EOS # 0.4 10^3/uL (0.0-0.50); EOS % 3.4 % (0.0-3.0); HEMATOCRIT 37.9 % (36.0-47.0); HEMOGLOBIN 11.9 g/dl (12.0-16.0); LYMPH # 2.8 10^3/uL (1.5-4.5); MEAN CORPUSCULAR HEMOGLOBIN 26.9 pg (27.0-33.0); MEAN CORPUSCULAR HGB CONC 31.4 g/dl (32.0-36.5); MEAN CORPUSCULAR VOLUME 85.7 fl (80.0-96.0); MONO # 0.7 10^3/uL (0.0-0.8); MONO % 6.4 % (0.0-5.0); NEUTROPHILS # 7.4 10^3/uL (1.8-7.7); PLATELET COUNT, AUTOMATED 353 10^3/uL (150-450); RED BLOOD COUNT 4.42 10^6/uL (4.00-5.40); RED CELL DISTRIBUTION WIDTH 15.7 % (11.5-14.5); WHITE BLOOD COUNT 11.5 10^3/uL (4.0-10.0)
[2017-07-28 15:04] LABS: ALKALINE PHOSPHATASE 80 U/L (45-117); MB/CK RELATIVE INDEX 1.61 (< OR =4); NT-PRO BNP 451 PG/ML (<450)
[2017-07-28] MEDS ORDERED: ISOVUE-370 76% 100ML VIAL (Q9967) As Ordered (15:14)
[2017-07-28 15:16] LABS: INR 1.32; PROTHROMBIN TIME 16.7 SECONDS (12.4-14.5)
[2017-07-28 15:50] LABS: ABG BASE EXCESS 8.9 (-2.0-2.0); ABG HCO3 34.3 MEQ/L (22.0-26.0); ABG O2 SATURATION 90.1 % (95.0-99.0); ABG PARTIAL PRESSURE CO2 50.6 mmHg (35.0-45.0); ABG PARTIAL PRESSURE O2 55.8 mmHg (75.0-100.0); ABG STANDARD HCO3 32.5 MEQ/L (22.0-26.0); ABG TOTAL CO2 35.9 MEQ/L (23.0-31.0); ABG pH (ARTERIAL) 7.449 UNITS (7.350-7.450)
[2017-07-28] MEDS: IPRATROPIUM 0.5MG/ALBUTEROL 2.5MG INH SOL UD 3ML (DUONEB)(J7620) NEB ×2 (15:53→16:00)
[2017-07-28 18:39] LABS: C REACTIVE PROTEIN QUANTITATIV < 0.30 MG/DL (0.00-0.30)
[2017-07-28] MEDS ORDERED: GLUCOSE 4 GM CHEW TABLET PO (19:30)
[2017-07-28] MEDS ORDERED: GLUCAGON FOR INJ 1 MG VIAL (J1610) SC (19:30)
[2017-07-28] MEDS ORDERED: DEXTROSE 50% 50 ML SYRINGE IV (19:30)
[2017-07-28] MEDS ORDERED: BISACODYL 5 MG TAB PO (19:30)
[2017-07-28] MEDS: ALBUTEROL SULFATE 2.5 MG/0.5 ML INH NEB SOLN NEB ×2 (19:39→23:44)
[2017-07-28] MEDS: HumaLOG INSULIN (NovoLOG) PER UNIT SC (21:00)
[2017-07-28 21:35] LABS: BEDSIDE GLUCOSE 195 MG/DL (83-110)
[2017-07-28] MEDS: LOSARTAN 25 MG TAB PO (22:27)
[2017-07-28] MEDS: AMIODARONE 200 MG TAB (PACERONE) PO (22:27)
[2017-07-28] MEDS: APIXABAN 5 MG TAB (ELIQUIS) PO (22:27)
[2017-07-28] MEDS: ATORVASTATIN 20 MG TAB PO (22:28)
[2017-07-28] MEDS: SENNA 8.6 MG TAB (SENOKOT) PO (22:28)
[2017-07-28] MEDS: LEVEMIR (INSULIN DETEMIR) 1 UNITS/0.01ML SC (22:29)
[2017-07-29] MEDS: ACETAMINOPHEN 500 MG TAB PO (01:21)
[2017-07-29] MEDS: methylPREDNISolone INJ 125 MG/2 ML VIAL (J2930) IV ×2 (03:23→16:05)
[2017-07-29] MEDS: ALBUTEROL SULFATE 2.5 MG/0.5 ML INH NEB SOLN NEB ×6 (03:34→23:23)
[2017-07-29] MEDS: LEVOTHYROXINE 100MCG TABLET (0.1MG) PO (05:59)
[2017-07-29 06:46] LABS: HEMATOCRIT 38.2 % (36.0-47.0); HEMOGLOBIN 12.1 g/dl (12.0-16.0); MEAN CORPUSCULAR HEMOGLOBIN 26.8 pg (27.0-33.0); MEAN CORPUSCULAR HGB CONC 31.7 g/dl (32.0-36.5); MEAN CORPUSCULAR VOLUME 84.7 fl (80.0-96.0); PLATELET COUNT, AUTOMATED 339 10^3/uL (150-450); RED BLOOD COUNT 4.51 10^6/uL (4.00-5.40); RED CELL DISTRIBUTION WIDTH 15.5 % (11.5-14.5); WHITE BLOOD COUNT 13.6 10^3/uL (4.0-10.0)
[2017-07-29 07:05] LABS: ANION GAP 9 MEQ/L (8-16); BLOOD UREA NITROGEN 34 MG/DL (7-18); CALCIUM LEVEL 9.5 MG/DL (8.8-10.2); CARBON DIOXIDE LEVEL 34 MEQ/L (21-32); CHLORIDE LEVEL 96 MEQ/L (98-107); CREATININE FOR GFR 1.68 MG/DL (0.55-1.30); GLOMERULAR FILTRATION RATE 31.3 (>39); GLUCOSE, FASTING 164 MG/DL (70-100); MAGNESIUM LEVEL 2.5 MG/DL (1.8-2.4); POTASSIUM SERUM 4.3 MEQ/L (3.5-5.1); SODIUM LEVEL 139 MEQ/L (136-145)
[2017-07-29] MEDS: TIOTROPIUM INHALER/CAPSULE (SPIRIVA) INH (07:55)
[2017-07-29] MEDS: ASPIRIN 81 MG ENTERIC TAB PO (08:07)
[2017-07-29] MEDS: APIXABAN 5 MG TAB (ELIQUIS) PO ×2 (08:16→21:24)
[2017-07-29] MEDS: diltiaZEM **CD** 180 MG CAP PO (08:16)
[2017-07-29] MEDS: FUROSEMIDE 40 MG TAB PO (08:17)
[2017-07-29] MEDS: HumaLOG INSULIN (NovoLOG) PER UNIT SC ×4 (08:18→21:25)
[2017-07-29] MEDS: OMEPRAZOLE 20 MG CAP PO (08:19)
[2017-07-29 11:57] LABS: BEDSIDE GLUCOSE 182 MG/DL (83-110)
[2017-07-29] MEDS: guaiFENesin ER 600 MG TAB PO ×2 (12:09→21:25)
[2017-07-29] MEDS: AMIODARONE 200 MG TAB (PACERONE) PO (12:12)
[2017-07-29] MEDS: LOSARTAN 25 MG TAB PO (12:12)
[2017-07-29] MEDS: NS 1,000 ML IV (12:14)
[2017-07-29] MEDS: ATORVASTATIN 20 MG TAB PO (17:31)
[2017-07-29 17:34] LABS: BEDSIDE GLUCOSE 346 MG/DL (83-110)
[2017-07-29 21:22] LABS: BEDSIDE GLUCOSE 337 MG/DL (83-110)
[2017-07-29] MEDS: SENNA 8.6 MG TAB (SENOKOT) PO (21:24)
[2017-07-29] MEDS: LEVEMIR (INSULIN DETEMIR) 1 UNITS/0.01ML SC (21:26)
[2017-07-30] MEDS: methylPREDNISolone INJ 125 MG/2 ML VIAL (J2930) IV ×2 (03:08→15:55)
[2017-07-30] MEDS: ALBUTEROL SULFATE 2.5 MG/0.5 ML INH NEB SOLN NEB ×5 (03:52→22:01)
[2017-07-30] MEDS: LEVOTHYROXINE 100MCG TABLET (0.1MG) PO (06:05)
[2017-07-30 06:27] LABS: HEMATOCRIT 33.6 % (36.0-47.0); HEMOGLOBIN 10.6 g/dl (12.0-16.0); MEAN CORPUSCULAR HEMOGLOBIN 26.6 pg (27.0-33.0); MEAN CORPUSCULAR HGB CONC 31.5 g/dl (32.0-36.5); MEAN CORPUSCULAR VOLUME 84.2 fl (80.0-96.0); PLATELET COUNT, AUTOMATED 313 10^3/uL (150-450); RED BLOOD COUNT 3.99 10^6/uL (4.00-5.40); RED CELL DISTRIBUTION WIDTH 15.7 % (11.5-14.5); WHITE BLOOD COUNT 20.1 10^3/uL (4.0-10.0)
[2017-07-30 06:40] LABS: ANION GAP 6 MEQ/L (8-16); BLOOD UREA NITROGEN 43 MG/DL (7-18); CALCIUM LEVEL 8.3 MG/DL (8.8-10.2); CARBON DIOXIDE LEVEL 32 MEQ/L (21-32); CHLORIDE LEVEL 101 MEQ/L (98-107); CREATININE FOR GFR 1.55 MG/DL (0.55-1.30); GLOMERULAR FILTRATION RATE 34.3 (>39); GLUCOSE, FASTING 162 MG/DL (70-100); MAGNESIUM LEVEL 2.7 MG/DL (1.8-2.4); POTASSIUM SERUM 4.1 MEQ/L (3.5-5.1); SODIUM LEVEL 139 MEQ/L (136-145)
[2017-07-30] MEDS: TIOTROPIUM INHALER/CAPSULE (SPIRIVA) INH (07:59)
[2017-07-30] MEDS: guaiFENesin ER 600 MG TAB PO ×2 (08:06→21:45)
[2017-07-30] MEDS: FUROSEMIDE 40 MG TAB PO (08:06)
[2017-07-30] MEDS: OMEPRAZOLE 20 MG CAP PO (08:06)
[2017-07-30] MEDS: ASPIRIN 81 MG ENTERIC TAB PO (08:06)
[2017-07-30] MEDS: diltiaZEM **CD** 180 MG CAP PO (08:06)
[2017-07-30] MEDS: APIXABAN 5 MG TAB (ELIQUIS) PO ×2 (08:06→21:45)
[2017-07-30] MEDS: HumaLOG INSULIN (NovoLOG) PER UNIT SC ×4 (08:06→21:07)
[2017-07-30 12:09] LABS: BEDSIDE GLUCOSE 306 MG/DL (83-110)
[2017-07-30] MEDS: AMIODARONE 200 MG TAB (PACERONE) PO (12:33)
[2017-07-30] MEDS: LOSARTAN 25 MG TAB PO (12:34)
[2017-07-30] MEDS: ATORVASTATIN 20 MG TAB PO (18:10)
[2017-07-30 20:53] LABS: BEDSIDE GLUCOSE 242 MG/DL (83-110)
[2017-07-30] MEDS: MIRALAX *UNIT DOSE* 17GM PACKET PO (21:45)
[2017-07-30] MEDS: SENOKOT S TAB PO (21:45)
[2017-07-30] MEDS: SENNA 8.6 MG TAB (SENOKOT) PO (21:45)
[2017-07-30] MEDS: LEVEMIR (INSULIN DETEMIR) 1 UNITS/0.01ML SC (21:45)
[2017-07-31] MEDS: ALBUTEROL SULFATE 2.5 MG/0.5 ML INH NEB SOLN NEB ×6 (01:01→18:50)
[2017-07-31] MEDS: methylPREDNISolone INJ 125 MG/2 ML VIAL (J2930) IV (02:14)
[2017-07-31] MEDS: LEVOTHYROXINE 100MCG TABLET (0.1MG) PO (05:40)
[2017-07-31 06:07] LABS: HEMATOCRIT 34.5 % (36.0-47.0); HEMOGLOBIN 10.6 g/dl (12.0-16.0); MEAN CORPUSCULAR HEMOGLOBIN 26.1 pg (27.0-33.0); MEAN CORPUSCULAR HGB CONC 30.7 g/dl (32.0-36.5); PLATELET COUNT, AUTOMATED 317 10^3/uL (150-450); RED BLOOD COUNT 4.06 10^6/uL (4.00-5.40); RED CELL DISTRIBUTION WIDTH 15.8 % (11.5-14.5); WHITE BLOOD COUNT 19.2 10^3/uL (4.0-10.0)
[2017-07-31 06:24] LABS: ANION GAP 9 MEQ/L (8-16); BLOOD UREA NITROGEN 49 MG/DL (7-18); CALCIUM LEVEL 8.5 MG/DL (8.8-10.2); CARBON DIOXIDE LEVEL 30 MEQ/L (21-32); CHLORIDE LEVEL 102 MEQ/L (98-107); CREATININE FOR GFR 1.59 MG/DL (0.55-1.30); GLOMERULAR FILTRATION RATE 33.3 (>39); GLUCOSE, FASTING 253 MG/DL (70-100); MAGNESIUM LEVEL 2.9 MG/DL (1.8-2.4); SODIUM LEVEL 141 MEQ/L (136-145)
[2017-07-31] MEDS: TIOTROPIUM INHALER/CAPSULE (SPIRIVA) INH (07:18)
[2017-07-31] MEDS: OMEPRAZOLE 20 MG CAP PO (07:56)
[2017-07-31] MEDS: HumaLOG INSULIN (NovoLOG) PER UNIT SC ×4 (07:56→21:18)
[2017-07-31] MEDS: MIRALAX *UNIT DOSE* 17GM PACKET PO ×2 (07:56→21:18)
[2017-07-31] MEDS: ASPIRIN 81 MG ENTERIC TAB PO (07:57)
[2017-07-31] MEDS: FUROSEMIDE 40 MG TAB PO (07:57)
[2017-07-31] MEDS: diltiaZEM **CD** 180 MG CAP PO (07:57)
[2017-07-31] MEDS: guaiFENesin ER 600 MG TAB PO ×2 (07:57→21:17)
[2017-07-31] MEDS: SENOKOT S TAB PO ×2 (07:57→21:17)
[2017-07-31] MEDS: APIXABAN 5 MG TAB (ELIQUIS) PO ×2 (07:57→21:17)
[2017-07-31 11:44] LABS: BEDSIDE GLUCOSE 285 MG/DL (83-110)
[2017-07-31 12:02] LABS: BEDSIDE GLUCOSE 217 MG/DL (83-110)
[2017-07-31] MEDS: LOSARTAN 25 MG TAB PO (12:32)
[2017-07-31] MEDS: AMIODARONE 200 MG TAB (PACERONE) PO (12:32)
[2017-07-31 16:39] LABS: BEDSIDE GLUCOSE 290 MG/DL (83-110)
[2017-07-31] MEDS: ATORVASTATIN 20 MG TAB PO (17:31)
[2017-07-31] MEDS: SENNA 8.6 MG TAB (SENOKOT) PO (21:17)
[2017-07-31] MEDS: LEVEMIR (INSULIN DETEMIR) 1 UNITS/0.01ML SC (21:17)
[2017-07-31 22:33] LABS: BEDSIDE GLUCOSE 294 MG/DL (83-110)
[2017-08-01] MEDS: ALBUTEROL SULFATE 2.5 MG/0.5 ML INH NEB SOLN NEB ×6 (00:08→19:30)
[2017-08-01] MEDS: LEVOTHYROXINE 100MCG TABLET (0.1MG) PO (05:50)
[2017-08-01 06:00] LABS: HEMATOCRIT 36.1 % (36.0-47.0); HEMOGLOBIN 11.1 g/dl (12.0-16.0); MEAN CORPUSCULAR HEMOGLOBIN 26.2 pg (27.0-33.0); MEAN CORPUSCULAR HGB CONC 30.7 g/dl (32.0-36.5); MEAN CORPUSCULAR VOLUME 85.3 fl (80.0-96.0); PLATELET COUNT, AUTOMATED 328 10^3/uL (150-450); RED BLOOD COUNT 4.23 10^6/uL (4.00-5.40); RED CELL DISTRIBUTION WIDTH 15.7 % (11.5-14.5); WHITE BLOOD COUNT 20.1 10^3/uL (4.0-10.0)
[2017-08-01 06:19] LABS: ANION GAP 4 MEQ/L (8-16); BLOOD UREA NITROGEN 44 MG/DL (7-18); CALCIUM LEVEL 8.4 MG/DL (8.8-10.2); CARBON DIOXIDE LEVEL 33 MEQ/L (21-32); CHLORIDE LEVEL 101 MEQ/L (98-107); CREATININE FOR GFR 1.37 MG/DL (0.55-1.30); GLOMERULAR FILTRATION RATE 39.6 (>39); GLUCOSE, FASTING 99 MG/DL (70-100); MAGNESIUM LEVEL 2.5 MG/DL (1.8-2.4); POTASSIUM SERUM 4.4 MEQ/L (3.5-5.1); SODIUM LEVEL 138 MEQ/L (136-145)
[2017-08-01] MEDS: TIOTROPIUM INHALER/CAPSULE (SPIRIVA) INH (07:17)
[2017-08-01] MEDS: HumaLOG INSULIN (NovoLOG) PER UNIT SC ×4 (07:30→21:00)
[2017-08-01] MEDS: NYSTATIN 500,000 U/5 ML SUSP UDC PO ×4 (09:25→21:08)
[2017-08-01] MEDS: MIRALAX *UNIT DOSE* 17GM PACKET PO ×2 (09:25→21:07)
[2017-08-01] MEDS: predniSONE 20 MG TAB PO (09:26)
[2017-08-01] MEDS: diltiaZEM **CD** 180 MG CAP PO (09:26)
[2017-08-01] MEDS: ASPIRIN 81 MG ENTERIC TAB PO (09:26)
[2017-08-01] MEDS: OMEPRAZOLE 20 MG CAP PO (09:26)
[2017-08-01] MEDS: FUROSEMIDE 40 MG TAB PO (09:26)
[2017-08-01] MEDS: SENOKOT S TAB PO ×2 (09:26→21:07)
[2017-08-01] MEDS: APIXABAN 5 MG TAB (ELIQUIS) PO ×2 (09:26→21:07)
[2017-08-01] MEDS: guaiFENesin ER 600 MG TAB PO ×2 (09:27→21:07)
[2017-08-01] MEDS: busPIRone 5 MG TAB PO ×2 (10:03→21:07)
[2017-08-01] MEDS: AMIODARONE 200 MG TAB (PACERONE) PO (12:40)
[2017-08-01] MEDS: LOSARTAN 25 MG TAB PO (12:40)
[2017-08-01] MEDS: ATORVASTATIN 20 MG TAB PO (18:05)
[2017-08-01] MEDS: SENNA 8.6 MG TAB (SENOKOT) PO (21:07)
[2017-08-01] MEDS: LEVEMIR (INSULIN DETEMIR) 1 UNITS/0.01ML SC (21:08)
[2017-08-02] MEDS: ALBUTEROL SULFATE 2.5 MG/0.5 ML INH NEB SOLN NEB ×7 (00:02→23:48)
[2017-08-02 00:29] LABS: BEDSIDE GLUCOSE 174 MG/DL (83-110)
[2017-08-02] MEDS: LEVOTHYROXINE 100MCG TABLET (0.1MG) PO (05:37)
[2017-08-02 06:08] LABS: HEMATOCRIT 38.3 % (36.0-47.0); HEMOGLOBIN 11.9 g/dl (12.0-16.0); MEAN CORPUSCULAR HEMOGLOBIN 26.5 pg (27.0-33.0); MEAN CORPUSCULAR HGB CONC 31.1 g/dl (32.0-36.5); MEAN CORPUSCULAR VOLUME 85.3 fl (80.0-96.0); PLATELET COUNT, AUTOMATED 300 10^3/uL (150-450); RED BLOOD COUNT 4.49 10^6/uL (4.00-5.40); RED CELL DISTRIBUTION WIDTH 15.7 % (11.5-14.5)
[2017-08-02 06:26] LABS: ANION GAP 7 MEQ/L (8-16); BLOOD UREA NITROGEN 38 MG/DL (7-18); CALCIUM LEVEL 8.6 MG/DL (8.8-10.2); CARBON DIOXIDE LEVEL 33 MEQ/L (21-32); CHLORIDE LEVEL 99 MEQ/L (98-107); CREATININE FOR GFR 1.11 MG/DL (0.55-1.30); GLOMERULAR FILTRATION RATE 50.5 (>39); GLUCOSE, FASTING 101 MG/DL (70-100); MAGNESIUM LEVEL 2.4 MG/DL (1.8-2.4); POTASSIUM SERUM 4.3 MEQ/L (3.5-5.1); SODIUM LEVEL 139 MEQ/L (136-145)
[2017-08-02] MEDS: TIOTROPIUM INHALER/CAPSULE (SPIRIVA) INH (07:22)
[2017-08-02] MEDS: HumaLOG INSULIN (NovoLOG) PER UNIT SC ×4 (07:53→20:38)
[2017-08-02] MEDS: NYSTATIN 500,000 U/5 ML SUSP UDC PO ×4 (09:25→20:38)
[2017-08-02] MEDS: predniSONE 20 MG TAB PO (09:25)
[2017-08-02] MEDS: MIRALAX *UNIT DOSE* 17GM PACKET PO ×2 (09:25→20:38)
[2017-08-02] MEDS: SENOKOT S TAB PO ×2 (09:26→20:38)
[2017-08-02] MEDS: OMEPRAZOLE 20 MG CAP PO (09:26)
[2017-08-02] MEDS: FUROSEMIDE 40 MG TAB PO (09:26)
[2017-08-02] MEDS: guaiFENesin ER 600 MG TAB PO ×2 (09:30→20:38)
[2017-08-02] MEDS: diltiaZEM **CD** 180 MG CAP PO (09:30)
[2017-08-02] MEDS: busPIRone 5 MG TAB PO ×2 (09:30→20:38)
[2017-08-02] MEDS: APIXABAN 5 MG TAB (ELIQUIS) PO ×2 (09:30→20:38)
[2017-08-02] MEDS: ASPIRIN 81 MG ENTERIC TAB PO (09:30)
[2017-08-02 12:03] LABS: BEDSIDE GLUCOSE 115 MG/DL (83-110)
[2017-08-02] MEDS: AMIODARONE 200 MG TAB (PACERONE) PO (12:35)
[2017-08-02] MEDS: LOSARTAN 25 MG TAB PO (12:35)
[2017-08-02 17:31] LABS: BEDSIDE GLUCOSE 257 MG/DL (83-110)
[2017-08-02] MEDS: ATORVASTATIN 20 MG TAB PO (17:55)
[2017-08-02] MEDS: LEVEMIR (INSULIN DETEMIR) 1 UNITS/0.01ML SC (20:38)
[2017-08-02] MEDS: SENNA 8.6 MG TAB (SENOKOT) PO (20:38)
[2017-08-02 20:41] LABS: BEDSIDE GLUCOSE 225 MG/DL (83-110)
[2017-08-03] MEDS: ALBUTEROL SULFATE 2.5 MG/0.5 ML INH NEB SOLN NEB ×5 (02:58→20:03)
[2017-08-03] MEDS: LEVOTHYROXINE 100MCG TABLET (0.1MG) PO (05:34)
[2017-08-03 05:56] LABS: HEMATOCRIT 38.2 % (36.0-47.0); HEMOGLOBIN 11.8 g/dl (12.0-16.0); MEAN CORPUSCULAR HEMOGLOBIN 25.9 pg (27.0-33.0); MEAN CORPUSCULAR HGB CONC 30.9 g/dl (32.0-36.5); MEAN CORPUSCULAR VOLUME 83.8 fl (80.0-96.0); PLATELET COUNT, AUTOMATED 313 10^3/uL (150-450); RED BLOOD COUNT 4.56 10^6/uL (4.00-5.40); RED CELL DISTRIBUTION WIDTH 15.5 % (11.5-14.5); WHITE BLOOD COUNT 15.7 10^3/uL (4.0-10.0)
[2017-08-03 06:12] LABS: ANION GAP 8 MEQ/L (8-16); BLOOD UREA NITROGEN 45 MG/DL (7-18); CALCIUM LEVEL 8.4 MG/DL (8.8-10.2); CARBON DIOXIDE LEVEL 33 MEQ/L (21-32); CHLORIDE LEVEL 99 MEQ/L (98-107); GLOMERULAR FILTRATION RATE 46.1 (>39); GLUCOSE, FASTING 174 MG/DL (70-100); MAGNESIUM LEVEL 2.4 MG/DL (1.8-2.4); POTASSIUM SERUM 4.6 MEQ/L (3.5-5.1); SODIUM LEVEL 140 MEQ/L (136-145)
[2017-08-03] MEDS: TIOTROPIUM INHALER/CAPSULE (SPIRIVA) INH (07:29)
[2017-08-03] MEDS: MIRALAX *UNIT DOSE* 17GM PACKET PO ×2 (08:22→21:41)
[2017-08-03] MEDS: HumaLOG INSULIN (NovoLOG) PER UNIT SC ×4 (08:22→21:41)
[2017-08-03] MEDS: NYSTATIN 500,000 U/5 ML SUSP UDC PO ×4 (08:22→21:41)
[2017-08-03] MEDS: predniSONE 20 MG TAB PO (08:23)
[2017-08-03] MEDS: SENOKOT S TAB PO ×2 (08:23→21:41)
[2017-08-03] MEDS: busPIRone 5 MG TAB PO ×2 (08:23→21:41)
[2017-08-03] MEDS: diltiaZEM **CD** 180 MG CAP PO (08:23)
[2017-08-03] MEDS: guaiFENesin ER 600 MG TAB PO ×2 (08:23→21:40)
[2017-08-03] MEDS: OMEPRAZOLE 20 MG CAP PO (08:23)
[2017-08-03] MEDS: FUROSEMIDE 40 MG TAB PO (08:24)
[2017-08-03] MEDS: APIXABAN 5 MG TAB (ELIQUIS) PO ×2 (08:24→21:41)
[2017-08-03] MEDS: ASPIRIN 81 MG ENTERIC TAB PO (08:24)
[2017-08-03 12:18] LABS: BEDSIDE GLUCOSE 252 MG/DL (83-110)
[2017-08-03] MEDS: LOSARTAN 25 MG TAB PO (13:17)
[2017-08-03] MEDS: AMIODARONE 200 MG TAB (PACERONE) PO (13:18)
[2017-08-03 17:22] LABS: BEDSIDE GLUCOSE 196 MG/DL (83-110)
[2017-08-03] MEDS: ATORVASTATIN 20 MG TAB PO (17:44)
[2017-08-03 20:36] LABS: BEDSIDE GLUCOSE 332 MG/DL (83-110)
[2017-08-03] MEDS: SENNA 8.6 MG TAB (SENOKOT) PO (21:41)
[2017-08-03] MEDS: LEVEMIR (INSULIN DETEMIR) 1 UNITS/0.01ML SC (21:41)
[2017-08-04] MEDS: ALBUTEROL SULFATE 2.5 MG/0.5 ML INH NEB SOLN NEB ×8 (00:45→23:24)
[2017-08-04] MEDS: LEVOTHYROXINE 100MCG TABLET (0.1MG) PO (05:40)
[2017-08-04 06:11] LABS: HEMATOCRIT 37.4 % (36.0-47.0); HEMOGLOBIN 11.8 g/dl (12.0-16.0); MEAN CORPUSCULAR HEMOGLOBIN 26.5 pg (27.0-33.0); MEAN CORPUSCULAR HGB CONC 31.6 g/dl (32.0-36.5); PLATELET COUNT, AUTOMATED 314 10^3/uL (150-450); RED BLOOD COUNT 4.45 10^6/uL (4.00-5.40); RED CELL DISTRIBUTION WIDTH 15.4 % (11.5-14.5)
[2017-08-04 06:46] LABS: ANION GAP 7 MEQ/L (8-16); BLOOD UREA NITROGEN 50 MG/DL (7-18); CALCIUM LEVEL 8.2 MG/DL (8.8-10.2); CARBON DIOXIDE LEVEL 32 MEQ/L (21-32); CHLORIDE LEVEL 99 MEQ/L (98-107); CREATININE FOR GFR 1.31 MG/DL (0.55-1.30); GLOMERULAR FILTRATION RATE 41.7 (>39); GLUCOSE, FASTING 193 MG/DL (70-100); MAGNESIUM LEVEL 2.6 MG/DL (1.8-2.4); POTASSIUM SERUM 4.5 MEQ/L (3.5-5.1); SODIUM LEVEL 138 MEQ/L (136-145)
[2017-08-04] MEDS: TIOTROPIUM INHALER/CAPSULE (SPIRIVA) INH (07:17)
[2017-08-04] MEDS: OMEPRAZOLE 20 MG CAP PO (08:05)
[2017-08-04] MEDS: HumaLOG INSULIN (NovoLOG) PER UNIT SC ×4 (08:05→20:59)
[2017-08-04] MEDS: FUROSEMIDE 40 MG TAB PO (08:05)
[2017-08-04] MEDS: ASPIRIN 81 MG ENTERIC TAB PO (08:05)
[2017-08-04] MEDS: predniSONE 20 MG TAB PO (08:05)
[2017-08-04] MEDS: APIXABAN 5 MG TAB (ELIQUIS) PO ×2 (08:05→20:57)
[2017-08-04] MEDS: MIRALAX *UNIT DOSE* 17GM PACKET PO ×2 (08:05→20:58)
[2017-08-04] MEDS: diltiaZEM **CD** 180 MG CAP PO (08:06)
[2017-08-04] MEDS: guaiFENesin ER 600 MG TAB PO ×2 (08:06→20:58)
[2017-08-04] MEDS: SENOKOT S TAB PO ×2 (08:06→20:57)
[2017-08-04] MEDS: NYSTATIN 500,000 U/5 ML SUSP UDC PO ×4 (08:10→20:57)
[2017-08-04] MEDS: busPIRone 5 MG TAB PO ×2 (10:42→20:57)
[2017-08-04] MEDS: AMIODARONE 200 MG TAB (PACERONE) PO (12:33)
[2017-08-04] MEDS: LOSARTAN 25 MG TAB PO (12:33)
[2017-08-04 14:28] LABS: BEDSIDE GLUCOSE 283 MG/DL (83-110)
[2017-08-04] MEDS: ATORVASTATIN 20 MG TAB PO (17:29)
[2017-08-04] MEDS: SENNA 8.6 MG TAB (SENOKOT) PO (20:57)
[2017-08-04] MEDS: LEVEMIR (INSULIN DETEMIR) 1 UNITS/0.01ML SC (20:59)
[2017-08-05] MEDS: ALBUTEROL SULFATE 2.5 MG/0.5 ML INH NEB SOLN NEB ×8 (02:48→23:07)
[2017-08-05 04:00] LABS: CK-MB VALUE MASS 1.6 NG/ML (0.0-3.6); CPK CREATINE PHOSPHOKINASE 45 U/L (26-192); MB/CK RELATIVE INDEX 3.55 (< OR =4); TROPONIN I < 0.02 NG/ML (< 0.10)
[2017-08-05] MEDS: LEVOTHYROXINE 100MCG TABLET (0.1MG) PO (05:32)
[2017-08-05] MEDS: predniSONE 20 MG TAB PO (08:03)
[2017-08-05] MEDS: MIRALAX *UNIT DOSE* 17GM PACKET PO ×2 (08:03→21:08)
[2017-08-05] MEDS: NYSTATIN 500,000 U/5 ML SUSP UDC PO ×4 (08:03→21:08)
[2017-08-05] MEDS: APIXABAN 5 MG TAB (ELIQUIS) PO ×2 (08:03→21:08)
[2017-08-05] MEDS: OMEPRAZOLE 20 MG CAP PO (08:03)
[2017-08-05] MEDS: ASPIRIN 81 MG ENTERIC TAB PO (08:04)
[2017-08-05] MEDS: busPIRone 5 MG TAB PO ×2 (08:04→21:08)
[2017-08-05] MEDS: diltiaZEM **CD** 180 MG CAP PO (08:04)
[2017-08-05] MEDS: guaiFENesin ER 600 MG TAB PO ×2 (08:04→21:07)
[2017-08-05] MEDS: HumaLOG INSULIN (NovoLOG) PER UNIT SC ×4 (08:05→21:00)
[2017-08-05] MEDS: SENOKOT S TAB PO ×2 (08:08→21:08)
[2017-08-05] MEDS: TIOTROPIUM INHALER/CAPSULE (SPIRIVA) INH (08:36)
[2017-08-05 09:06] LABS: BEDSIDE GLUCOSE 259 MG/DL (83-110)
[2017-08-05 09:13] LABS: BEDSIDE GLUCOSE 277 MG/DL (83-110)
[2017-08-05 09:13] LABS: BEDSIDE GLUCOSE 245 MG/DL (83-110)
[2017-08-05 09:14] LABS: BEDSIDE GLUCOSE 253 MG/DL (83-110)
[2017-08-05 10:21] LABS: HEMATOCRIT 35.1 % (36.0-47.0); HEMOGLOBIN 11.2 g/dl (12.0-16.0); MEAN CORPUSCULAR HGB CONC 31.9 g/dl (32.0-36.5); MEAN CORPUSCULAR VOLUME 84.6 fl (80.0-96.0); PLATELET COUNT, AUTOMATED 277 10^3/uL (150-450); RED BLOOD COUNT 4.15 10^6/uL (4.00-5.40); RED CELL DISTRIBUTION WIDTH 15.8 % (11.5-14.5); WHITE BLOOD COUNT 19.4 10^3/uL (4.0-10.0)
[2017-08-05 10:39] LABS: ANION GAP 6 MEQ/L (8-16); BLOOD UREA NITROGEN 51 MG/DL (7-18); CALCIUM LEVEL 8.1 MG/DL (8.8-10.2); CARBON DIOXIDE LEVEL 31 MEQ/L (21-32); CHLORIDE LEVEL 103 MEQ/L (98-107); CREATININE FOR GFR 1.42 MG/DL (0.55-1.30); GLUCOSE, FASTING 168 MG/DL (70-100); POTASSIUM SERUM 4.7 MEQ/L (3.5-5.1); SODIUM LEVEL 140 MEQ/L (136-145)
[2017-08-05 10:58] LABS: BEDSIDE GLUCOSE 121 MG/DL (83-110)
[2017-08-05] MEDS: AMIODARONE 200 MG TAB (PACERONE) PO (12:19)
[2017-08-05] MEDS: LOSARTAN 25 MG TAB PO (12:20)
[2017-08-05 12:40] LABS: BEDSIDE GLUCOSE 158 MG/DL (83-110)
[2017-08-05 17:07] LABS: BEDSIDE GLUCOSE 307 MG/DL (83-110)
[2017-08-05] MEDS: ATORVASTATIN 20 MG TAB PO (17:27)
[2017-08-05] MEDS: LEVEMIR (INSULIN DETEMIR) 1 UNITS/0.01ML SC (21:00)
[2017-08-05] MEDS: SENNA 8.6 MG TAB (SENOKOT) PO (21:08)
[2017-08-05 21:12] LABS: BEDSIDE GLUCOSE 244 MG/DL (83-110)
[2017-08-06] MEDS: ALBUTEROL SULFATE 2.5 MG/0.5 ML INH NEB SOLN NEB ×6 (04:04→21:12)
[2017-08-06] MEDS: LEVOTHYROXINE 100MCG TABLET (0.1MG) PO (05:41)
[2017-08-06 06:54] LABS: ANION GAP 5 MEQ/L (8-16); BLOOD UREA NITROGEN 47 MG/DL (7-18); CALCIUM LEVEL 8.2 MG/DL (8.8-10.2); CARBON DIOXIDE LEVEL 31 MEQ/L (21-32); CHLORIDE LEVEL 105 MEQ/L (98-107); CREATININE FOR GFR 1.09 MG/DL (0.55-1.30); GLOMERULAR FILTRATION RATE 51.5 (>39); GLUCOSE, FASTING 133 MG/DL (70-100); POTASSIUM SERUM 4.5 MEQ/L (3.5-5.1); SODIUM LEVEL 141 MEQ/L (136-145)
[2017-08-06] MEDS: TIOTROPIUM INHALER/CAPSULE (SPIRIVA) INH (07:43)
[2017-08-06] MEDS: guaiFENesin ER 600 MG TAB PO ×2 (07:49→20:12)
[2017-08-06] MEDS: HumaLOG INSULIN (NovoLOG) PER UNIT SC ×4 (07:49→21:04)
[2017-08-06] MEDS: MIRALAX *UNIT DOSE* 17GM PACKET PO ×2 (07:50→20:14)
[2017-08-06] MEDS: diltiaZEM **CD** 180 MG CAP PO (07:50)
[2017-08-06] MEDS: SENOKOT S TAB PO ×2 (07:50→20:13)
[2017-08-06] MEDS: predniSONE 20 MG TAB PO (07:50)
[2017-08-06] MEDS: OMEPRAZOLE 20 MG CAP PO (07:50)
[2017-08-06] MEDS: APIXABAN 5 MG TAB (ELIQUIS) PO ×2 (07:50→20:13)
[2017-08-06] MEDS: busPIRone 5 MG TAB PO ×2 (07:50→20:13)
[2017-08-06] MEDS: ASPIRIN 81 MG ENTERIC TAB PO (07:50)
[2017-08-06] MEDS: NYSTATIN 500,000 U/5 ML SUSP UDC PO ×4 (07:51→20:12)
[2017-08-06 12:21] LABS: BEDSIDE GLUCOSE 200 MG/DL (83-110)
[2017-08-06] MEDS: LOSARTAN 25 MG TAB PO (12:47)
[2017-08-06] MEDS: AMIODARONE 200 MG TAB (PACERONE) PO (12:47)
[2017-08-06] MEDS: FUROSEMIDE 40 MG TAB PO (12:47)
[2017-08-06] MEDS: NYSTATIN 100,000 UNITS/GM TOPICAL PWD 15 GM TOP ×2 (12:48→20:14)
[2017-08-06 17:03] LABS: BEDSIDE GLUCOSE 275 MG/DL (83-110)
[2017-08-06] MEDS: ATORVASTATIN 20 MG TAB PO (17:15)
[2017-08-06] MEDS: SENNA 8.6 MG TAB (SENOKOT) PO (20:13)
[2017-08-06] MEDS: LEVEMIR (INSULIN DETEMIR) 1 UNITS/0.01ML SC (20:13)
[2017-08-07 00:28] LABS: BEDSIDE GLUCOSE 403 MG/DL (83-110)
[2017-08-07] MEDS: ALBUTEROL SULFATE 2.5 MG/0.5 ML INH NEB SOLN NEB ×7 (02:03→23:18)
[2017-08-07] MEDS: ACETAMINOPHEN 500 MG TAB PO (03:56)
[2017-08-07] MEDS: LEVOTHYROXINE 100MCG TABLET (0.1MG) PO (05:30)
[2017-08-07 07:13] LABS: BEDSIDE GLUCOSE 110 MG/DL (83-110)
[2017-08-07] MEDS: HumaLOG INSULIN (NovoLOG) PER UNIT SC ×4 (07:30→20:43)
[2017-08-07 08:09] LABS: ANION GAP 6 MEQ/L (8-16); BLOOD UREA NITROGEN 45 MG/DL (7-18); CALCIUM LEVEL 8.1 MG/DL (8.8-10.2); CARBON DIOXIDE LEVEL 33 MEQ/L (21-32); CHLORIDE LEVEL 103 MEQ/L (98-107); CREATININE FOR GFR 1.22 MG/DL (0.55-1.30); GLOMERULAR FILTRATION RATE 45.3 (>39); GLUCOSE, FASTING 168 MG/DL (70-100); POTASSIUM SERUM 4.6 MEQ/L (3.5-5.1); SODIUM LEVEL 142 MEQ/L (136-145)
[2017-08-07] MEDS: TIOTROPIUM INHALER/CAPSULE (SPIRIVA) INH (08:09)
[2017-08-07] MEDS: SENOKOT S TAB PO ×3 (09:00→20:30)
[2017-08-07] MEDS: MIRALAX *UNIT DOSE* 17GM PACKET PO ×3 (09:00→20:34)
[2017-08-07] MEDS: NYSTATIN 100,000 UNITS/GM TOPICAL PWD 15 GM TOP ×2 (09:00→20:43)
[2017-08-07] MEDS: guaiFENesin ER 600 MG TAB PO ×2 (09:19→20:30)
[2017-08-07] MEDS: predniSONE 20 MG TAB PO (09:19)
[2017-08-07] MEDS: APIXABAN 5 MG TAB (ELIQUIS) PO ×2 (09:19→20:30)
[2017-08-07] MEDS: ASPIRIN 81 MG ENTERIC TAB PO (09:19)
[2017-08-07] MEDS: busPIRone 5 MG TAB PO ×2 (09:19→20:30)
[2017-08-07] MEDS: OMEPRAZOLE 20 MG CAP PO (09:19)
[2017-08-07] MEDS: diltiaZEM **CD** 180 MG CAP PO (09:19)
[2017-08-07] MEDS: NYSTATIN 500,000 U/5 ML SUSP UDC PO ×4 (09:19→20:30)
[2017-08-07 12:07] LABS: BEDSIDE GLUCOSE 160 MG/DL (83-110)
[2017-08-07] MEDS: AMIODARONE 200 MG TAB (PACERONE) PO (12:15)
[2017-08-07] MEDS: LOSARTAN 25 MG TAB PO (12:15)
[2017-08-07 17:16] LABS: BEDSIDE GLUCOSE 250 MG/DL (83-110)
[2017-08-07] MEDS: ATORVASTATIN 20 MG TAB PO (17:49)
[2017-08-07] MEDS: SENNA 8.6 MG TAB (SENOKOT) PO (20:30)
[2017-08-07] MEDS: LEVEMIR (INSULIN DETEMIR) 1 UNITS/0.01ML SC (20:31)
[2017-08-07 21:24] LABS: BEDSIDE GLUCOSE 323 MG/DL (83-110)
[2017-08-08] MEDS: ALBUTEROL SULFATE 2.5 MG/0.5 ML INH NEB SOLN NEB ×2 (03:34→07:12)
[2017-08-08] MEDS: LEVOTHYROXINE 100MCG TABLET (0.1MG) PO (06:19)
[2017-08-08 06:23] LABS: BEDSIDE GLUCOSE 135 MG/DL (83-110)
[2017-08-08] MEDS: TIOTROPIUM INHALER/CAPSULE (SPIRIVA) INH (07:13)
[2017-08-08] MEDS: NYSTATIN 100,000 UNITS/GM TOPICAL PWD 15 GM TOP (08:01)
[2017-08-08] MEDS: OMEPRAZOLE 20 MG CAP PO (08:04)
[2017-08-08] MEDS: APIXABAN 5 MG TAB (ELIQUIS) PO (08:04)
[2017-08-08] MEDS: guaiFENesin ER 600 MG TAB PO (08:04)
[2017-08-08] MEDS: ASPIRIN 81 MG ENTERIC TAB PO (08:04)
[2017-08-08] MEDS: predniSONE 20 MG TAB PO (08:04)
[2017-08-08] MEDS: diltiaZEM **CD** 180 MG CAP PO (08:04)
[2017-08-08] MEDS: MIRALAX *UNIT DOSE* 17GM PACKET PO (08:05)
[2017-08-08] MEDS: HumaLOG INSULIN (NovoLOG) PER UNIT SC (08:05)
[2017-08-08] MEDS: busPIRone 5 MG TAB PO (08:05)
[2017-08-08] MEDS: SENOKOT S TAB PO (08:05)
[2017-08-08] MEDS: FUROSEMIDE 40 MG TAB PO (08:05)
== END 2017-08-08 10:35 | disposition home health service (06) | DRG 191 ==
LOC: M ED 12:42 → M ED INP 19:27 → M MSPAV 20:50
DX: J44.1 Chronic obstructive pulmonary disease with (acute) exacerbation (principal); J98.11 Atelectasis; I50.32 Chronic diastolic (congestive) heart failure; N17.9 Acute kidney failure, unspecified; I13.0 Hypertensive heart and chronic kidney disease with heart failure and stage 1 through stage 4 chronic kidney disease, or unspecified chronic kidney disease; B37.0 Candidal stomatitis; J96.10 Chronic respiratory failure, unspecified whether with hypoxia or hypercapnia; I25.10 Atherosclerotic heart disease of native coronary artery without angina pectoris; E78.5 Hyperlipidemia, unspecified; Z66 Do not resuscitate; K21.9 Gastro-esophageal reflux disease without esophagitis; I27.29 Other secondary pulmonary hypertension; I48.2 Chronic atrial fibrillation; D50.9 Iron deficiency anemia, unspecified; N18.3 Chronic kidney disease, stage 3 (moderate); E11.22 Type 2 diabetes mellitus with diabetic chronic kidney disease; G47.33 Obstructive sleep apnea (adult) (pediatric); Z87.891 Personal history of nicotine dependence; Z79.01 Long term (current) use of anticoagulants; Z79.82 Long term (current) use of aspirin; Z79.4 Long term (current) use of insulin; Z79.899 Other long term (current) drug therapy; Z88.0 Allergy status to penicillin; Z88.6 Allergy status to analgesic agent; Z88.2 Allergy status to sulfonamides; Z88.8 Allergy status to other drugs, medicaments and biological substances

== ENCOUNTER → 2017-08-19 | Outpatient (CLI) | payer MEDICARE, BC, OTHER | LOC: M ADAMS 15:27 | DX: J98.11 Atelectasis (principal) | CPT/HCPCS: 71046 ==

== ENCOUNTER → 2017-09-02 | Outpatient (REF) | payer MEDICARE ==
[2017-09-02 19:52] LABS: HEMATOCRIT 31.3 % (36.0-47.0); HEMOGLOBIN 9.4 g/dl (12.0-16.0); MEAN CORPUSCULAR HEMOGLOBIN 26.9 pg (27.0-33.0); MEAN CORPUSCULAR VOLUME 89.7 fl (80.0-96.0); PLATELET COUNT, AUTOMATED 351 10^3/uL (150-450); RED BLOOD COUNT 3.49 10^6/uL (4.00-5.40); RED CELL DISTRIBUTION WIDTH 17.7 % (11.5-14.5); WHITE BLOOD COUNT 8.1 10^3/uL (4.0-10.0)
[2017-09-02 20:23] LABS: ESTIMATED AVERAGE GLUCOSE 217 MG/DL (60-110); HEMOGLOBIN A1c 9.2 %
[2017-09-02 20:34] LABS: ALBUMIN/GLOBULIN RATIO 0.91 (1.00-1.93); ALKALINE PHOSPHATASE 80 U/L (45-117); ALT/SGPT 25 U/L (12-78); ANION GAP 8 MEQ/L (8-16); AST/SGOT 14 U/L (7-37); BILIRUBIN,TOTAL 0.3 MG/DL (0.2-1.0); BLOOD UREA NITROGEN 23 MG/DL (7-18); CALCIUM LEVEL 8.3 MG/DL (8.8-10.2); CARBON DIOXIDE LEVEL 31 MEQ/L (21-32); CHLORIDE LEVEL 102 MEQ/L (98-107); CREATININE FOR GFR 1.13 MG/DL (0.55-1.30); FREE T4 1.36 NG/DL (0.76-1.46); GLOMERULAR FILTRATION RATE 49.3 (>32); GLUCOSE, FASTING 228 MG/DL (70-100); POTASSIUM SERUM 4.1 MEQ/L (3.5-5.1); SODIUM LEVEL 141 MEQ/L (136-145); TOTAL PROTEIN 6.3 GM/DL (6.4-8.2)
== END ==
LOC: M SFHCADAM 16:05
DX: N18.3 Chronic kidney disease, stage 3 (moderate) (principal); D50.9 Iron deficiency anemia, unspecified; E11.9 Type 2 diabetes mellitus without complications; E03.2 Hypothyroidism due to medicaments and other exogenous substances
CPT/HCPCS: 84443

== ENCOUNTER 2017-10-04 21:54 | Inpatient (IN) | payer MEDICARE, BC, OTHER ==
[2017-10-04 22:23] LABS: BASO # 0.1 10^3/uL (0.0-0.2); BASO % 0.8 % (0.0-1.0); EOS # 0.5 10^3/uL (0.0-0.50); EOS % 4.2 % (0.0-3.0); HEMATOCRIT 34.2 % (36.0-47.0); HEMOGLOBIN 10.6 g/dl (12.0-15.5); IMMATURE GRANULOCYTE % 0.5 % (0-3.0); LYMPH # 2.6 10^3/uL (1.5-4.5); LYMPH % 23.3 % (24.0-44.0); MEAN CORPUSCULAR HEMOGLOBIN 28.4 pg (27.0-33.0); MEAN CORPUSCULAR VOLUME 91.7 fl (80.0-96.0); NEUTROPHILS % 62.2 % (36.0-66.0); PLATELET COUNT, AUTOMATED 227 10^3/uL (150-450); RED BLOOD COUNT 3.73 10^6/uL (4.00-5.40); RED CELL DISTRIBUTION WIDTH 15.9 % (11.5-14.5); WHITE BLOOD COUNT 11.3 10^3/uL (4.0-10.0)
[2017-10-04 22:33] LABS: INR 1.33; PARTIAL THROMBOPLASTIN TIME 32.2 SECONDS (26.8-37.9); PROTHROMBIN TIME 16.8 SECONDS (12.4-14.5)
[2017-10-04 23:04] LABS: ALBUMIN 3.9 GM/DL (3.2-5.2); ALBUMIN/GLOBULIN RATIO 1.15 (1.00-1.93); ALKALINE PHOSPHATASE 88 U/L (45-117); ALT/SGPT 20 U/L (12-78); ANION GAP 6 MEQ/L (8-16); AST/SGOT 18 U/L (7-37); BILIRUBIN,DIRECT 0.2 MG/DL (0.0-0.2); BILIRUBIN,TOTAL 0.5 MG/DL (0.2-1.0); BLOOD UREA NITROGEN 39 MG/DL (7-18); C REACTIVE PROTEIN QUANTITATIV < 0.30 MG/DL (0.00-0.30); CALCIUM LEVEL 8.9 MG/DL (8.8-10.2); CARBON DIOXIDE LEVEL 33 MEQ/L (21-32); CHLORIDE LEVEL 101 MEQ/L (98-107); CPK CREATINE PHOSPHOKINASE 71 U/L (26-192); CREATININE FOR GFR 1.54 MG/DL (0.55-1.30); FREE T4 1.65 NG/DL (0.76-1.46); GLOMERULAR FILTRATION RATE 34.5 (>32); GLUCOSE, FASTING 140 MG/DL (70-100); POTASSIUM SERUM 4.1 MEQ/L (3.5-5.1); SODIUM LEVEL 140 MEQ/L (136-145); TOTAL PROTEIN 7.3 GM/DL (6.4-8.2); TROPONIN I < 0.02 NG/ML (< 0.10)
[2017-10-04 23:10] LABS: CK-MB VALUE MASS 1.3 NG/ML (<3.6); MB/CK RELATIVE INDEX 1.83 (< OR =4); NT-PRO BNP 817 PG/ML (<450)
[2017-10-04] MEDS: IPRATROPIUM 0.5MG/ALBUTEROL 2.5MG INH SOL UD 3ML (DUONEB)(J7620) NEB (23:13)
[2017-10-05] MEDS: IPRATROPIUM 0.5MG/ALBUTEROL 2.5MG INH SOL UD 3ML (DUONEB)(J7620) NEB ×6 (00:48→19:53)
[2017-10-05] MEDS: methylPREDNISolone INJ 125 MG/2 ML VIAL (J2930) IV ×3 (00:53→21:04)
[2017-10-05] MEDS ORDERED: DEXTROSE 50% 50 ML SYRINGE IV (02:00)
[2017-10-05] MEDS ORDERED: GLUCOSE 4 GM CHEW TABLET PO (02:00)
[2017-10-05] MEDS ORDERED: ONDANSETRON 4MG/2ML VIAL (J2405) IV ×2 (02:00→09:00)
[2017-10-05] MEDS ORDERED: GLUCAGON FOR INJ 1 MG VIAL (J1610) SC (02:00)
[2017-10-05] MEDS: FUROSEMIDE 40 MG/4 ML VIAL (J1940) IV ×2 (02:33→09:15)
[2017-10-05 03:19] LABS: CK-MB VALUE MASS 1.1 NG/ML (<3.6); CPK CREATINE PHOSPHOKINASE 63 U/L (26-192); MB/CK RELATIVE INDEX 1.74 (< OR =4); TROPONIN I < 0.02 NG/ML (< 0.10)
[2017-10-05] MEDS: methylPREDNISolone INJ 40 MG/1 ML VIAL (J2920) IV (05:17)
[2017-10-05 05:24] LABS: HEMATOCRIT 38.6 % (36.0-47.0); MEAN CORPUSCULAR HEMOGLOBIN 27.7 pg (27.0-33.0); MEAN CORPUSCULAR HGB CONC 31.1 g/dl (32.0-36.5); MEAN CORPUSCULAR VOLUME 89.1 fl (80.0-96.0); PLATELET COUNT, AUTOMATED 295 10^3/uL (150-450); RED BLOOD COUNT 4.33 10^6/uL (4.00-5.40); RED CELL DISTRIBUTION WIDTH 15.9 % (11.5-14.5); WHITE BLOOD COUNT 12.2 10^3/uL (4.0-10.0)
[2017-10-05 05:43] LABS: ANION GAP 11 MEQ/L (8-16); BLOOD UREA NITROGEN 41 MG/DL (7-18); CALCIUM LEVEL 9.5 MG/DL (8.8-10.2); CARBON DIOXIDE LEVEL 30 MEQ/L (21-32); CHLORIDE LEVEL 98 MEQ/L (98-107); CREATININE FOR GFR 1.51 MG/DL (0.55-1.30); GLOMERULAR FILTRATION RATE 35.3 (>32); GLUCOSE, FASTING 161 MG/DL (70-100); MAGNESIUM LEVEL 2.4 MG/DL (1.8-2.4); POTASSIUM SERUM 3.6 MEQ/L (3.5-5.1); SODIUM LEVEL 139 MEQ/L (136-145)
[2017-10-05] MEDS: LEVOTHYROXINE 100MCG TABLET (0.1MG) PO (06:21)
[2017-10-05] MEDS: TIOTROPIUM INHALER/CAPSULE (SPIRIVA) INH (07:13)
[2017-10-05] MEDS: HumaLOG INSULIN (NovoLOG) PER UNIT SC ×4 (07:30→21:06)
[2017-10-05] MEDS ORDERED: methylPREDNISolone INJ 125 MG/2 ML VIAL (J2930) IV (09:00)
[2017-10-05] MEDS ORDERED: PANTOPRAZOLE 40MG TAB (PROTONIX) PO (09:00)
[2017-10-05] MEDS ORDERED: SENOKOT S TAB PO (09:00)
[2017-10-05] MEDS: traMADol 50 MG TAB PO ×2 (09:00→21:00)
[2017-10-05] MEDS: guaiFENesin ER 600 MG TAB PO ×2 (09:14→21:02)
[2017-10-05] MEDS: APIXABAN 5 MG TAB (ELIQUIS) PO ×2 (09:14→21:01)
[2017-10-05] MEDS: ASPIRIN 81 MG ENTERIC TAB PO (09:14)
[2017-10-05] MEDS: diltiaZEM **CD** 180 MG CAP PO (09:14)
[2017-10-05] MEDS: PANTOPRAZOLE 40MG TAB (PROTONIX) PO (09:14)
[2017-10-05] MEDS: SENOKOT S TAB PO ×2 (09:15→21:00)
[2017-10-05 12:14] LABS: BEDSIDE GLUCOSE 266 MG/DL (83-110)
[2017-10-05] MEDS: AMIODARONE 200 MG TAB (PACERONE) PO (12:19)
[2017-10-05 17:27] LABS: BEDSIDE GLUCOSE 273 MG/DL (83-110)
[2017-10-05] MEDS: busPIRone 5 MG TAB PO (17:32)
[2017-10-05 20:31] LABS: BEDSIDE GLUCOSE 318 MG/DL (83-110)
[2017-10-05] MEDS: SENNA 8.6 MG TAB (SENOKOT) PO (21:01)
[2017-10-05] MEDS: ATORVASTATIN 20 MG TAB PO (21:01)
[2017-10-05] MEDS: LEVEMIR (INSULIN DETEMIR) 1 UNITS/0.01ML SC (21:05)
[2017-10-06] MEDS: IPRATROPIUM 0.5MG/ALBUTEROL 2.5MG INH SOL UD 3ML (DUONEB)(J7620) NEB ×4 (02:21→20:07)
[2017-10-06] MEDS: methylPREDNISolone INJ 125 MG/2 ML VIAL (J2930) IV ×3 (05:00→21:21)
[2017-10-06 05:19] LABS: HEMATOCRIT 34.1 % (36.0-47.0); HEMOGLOBIN 10.7 g/dl (12.0-15.5); MEAN CORPUSCULAR HEMOGLOBIN 28.2 pg (27.0-33.0); MEAN CORPUSCULAR HGB CONC 31.4 g/dl (32.0-36.5); PLATELET COUNT, AUTOMATED 272 10^3/uL (150-450); RED BLOOD COUNT 3.79 10^6/uL (4.00-5.40); RED CELL DISTRIBUTION WIDTH 15.8 % (11.5-14.5); WHITE BLOOD COUNT 21.9 10^3/uL (4.0-10.0)
[2017-10-06 05:44] LABS: ANION GAP 8 MEQ/L (8-16); BLOOD UREA NITROGEN 57 MG/DL (7-18); CALCIUM LEVEL 9.2 MG/DL (8.8-10.2); CARBON DIOXIDE LEVEL 33 MEQ/L (21-32); CHLORIDE LEVEL 98 MEQ/L (98-107); CREATININE FOR GFR 1.87 MG/DL (0.55-1.30); GLOMERULAR FILTRATION RATE 27.6 (>32); GLUCOSE, FASTING 272 MG/DL (70-100); MAGNESIUM LEVEL 2.9 MG/DL (1.8-2.4); POTASSIUM SERUM 3.6 MEQ/L (3.5-5.1); SODIUM LEVEL 139 MEQ/L (136-145)
[2017-10-06] MEDS: LEVOTHYROXINE 100MCG TABLET (0.1MG) PO (06:00)
[2017-10-06] MEDS: HumaLOG INSULIN (NovoLOG) PER UNIT SC ×4 (08:42→21:21)
[2017-10-06] MEDS: SENOKOT S TAB PO ×2 (08:42→21:19)
[2017-10-06] MEDS: diltiaZEM **CD** 180 MG CAP PO (08:42)
[2017-10-06] MEDS: guaiFENesin ER 600 MG TAB PO ×2 (08:42→21:19)
[2017-10-06] MEDS: APIXABAN 5 MG TAB (ELIQUIS) PO ×2 (08:43→21:18)
[2017-10-06] MEDS: ASPIRIN 81 MG ENTERIC TAB PO (08:43)
[2017-10-06] MEDS: PANTOPRAZOLE 40MG TAB (PROTONIX) PO (08:43)
[2017-10-06] MEDS: traMADol 50 MG TAB PO ×2 (08:43→21:00)
[2017-10-06] MEDS: busPIRone 5 MG TAB PO ×2 (08:57→21:21)
[2017-10-06 12:26] LABS: BEDSIDE GLUCOSE 251 MG/DL (83-110)
[2017-10-06] MEDS: AMIODARONE 200 MG TAB (PACERONE) PO (12:32)
[2017-10-06] MEDS: NS 1,000 ML IV (15:03)
[2017-10-06 17:33] LABS: BEDSIDE GLUCOSE 322 MG/DL (83-110)
[2017-10-06 21:10] LABS: BEDSIDE GLUCOSE 299 MG/DL (83-110)
[2017-10-06] MEDS: ATORVASTATIN 20 MG TAB PO (21:19)
[2017-10-06] MEDS: SENNA 8.6 MG TAB (SENOKOT) PO (21:19)
[2017-10-06] MEDS: LEVEMIR (INSULIN DETEMIR) 1 UNITS/0.01ML SC (21:21)
[2017-10-07] MEDS: IPRATROPIUM 0.5MG/ALBUTEROL 2.5MG INH SOL UD 3ML (DUONEB)(J7620) NEB ×6 (02:29→23:48)
[2017-10-07] MEDS: NS 1,000 ML IV ×2 (02:37→14:41)
[2017-10-07 05:38] LABS: HEMATOCRIT 30.5 % (36.0-47.0); HEMOGLOBIN 9.5 g/dl (12.0-15.5); MEAN CORPUSCULAR HEMOGLOBIN 28.3 pg (27.0-33.0); MEAN CORPUSCULAR HGB CONC 31.1 g/dl (32.0-36.5); MEAN CORPUSCULAR VOLUME 90.8 fl (80.0-96.0); PLATELET COUNT, AUTOMATED 254 10^3/uL (150-450); RED BLOOD COUNT 3.36 10^6/uL (4.00-5.40); RED CELL DISTRIBUTION WIDTH 15.9 % (11.5-14.5); WHITE BLOOD COUNT 19.6 10^3/uL (4.0-10.0)
[2017-10-07] MEDS: LEVOTHYROXINE 88MCG TABLET (0.088 MG) PO (05:44)
[2017-10-07] MEDS: methylPREDNISolone INJ 125 MG/2 ML VIAL (J2930) IV (05:44)
[2017-10-07 05:52] LABS: ANION GAP 7 MEQ/L (8-16); BLOOD UREA NITROGEN 65 MG/DL (7-18); CALCIUM LEVEL 8.5 MG/DL (8.8-10.2); CARBON DIOXIDE LEVEL 31 MEQ/L (21-32); CHLORIDE LEVEL 102 MEQ/L (98-107); CREATININE FOR GFR 1.84 MG/DL (0.55-1.30); GLOMERULAR FILTRATION RATE 28.1 (>32); GLUCOSE, FASTING 322 MG/DL (70-100); SODIUM LEVEL 140 MEQ/L (136-145)
[2017-10-07] MEDS: HumaLOG INSULIN (NovoLOG) PER UNIT SC ×4 (07:46→20:46)
[2017-10-07] MEDS: traMADol 50 MG TAB PO ×2 (09:00→20:47)
[2017-10-07] MEDS: SENOKOT S TAB PO ×2 (09:05→20:47)
[2017-10-07] MEDS: PANTOPRAZOLE 40MG TAB (PROTONIX) PO (09:05)
[2017-10-07] MEDS: APIXABAN 5 MG TAB (ELIQUIS) PO ×2 (09:06→20:47)
[2017-10-07] MEDS: diltiaZEM **CD** 180 MG CAP PO (09:06)
[2017-10-07] MEDS: ASPIRIN 81 MG ENTERIC TAB PO (09:07)
[2017-10-07] MEDS: guaiFENesin ER 600 MG TAB PO ×2 (09:07→20:47)
[2017-10-07 11:30] LABS: BEDSIDE GLUCOSE 325 MG/DL (83-110)
[2017-10-07] MEDS: AMIODARONE 200 MG TAB (PACERONE) PO (12:06)
[2017-10-07] MEDS: methylPREDNISolone INJ 40 MG/1 ML VIAL (J2920) IV (16:08)
[2017-10-07 17:26] LABS: BEDSIDE GLUCOSE 240 MG/DL (83-110)
[2017-10-07 20:47] LABS: BEDSIDE GLUCOSE 258 MG/DL (83-110)
[2017-10-07] MEDS: busPIRone 5 MG TAB PO (20:47)
[2017-10-07] MEDS: LEVEMIR (INSULIN DETEMIR) 1 UNITS/0.01ML SC (20:47)
[2017-10-07] MEDS: SENNA 8.6 MG TAB (SENOKOT) PO (20:47)
[2017-10-07] MEDS: ATORVASTATIN 20 MG TAB PO (20:47)
[2017-10-07] MEDS: MIRALAX *UNIT DOSE* 17GM PACKET PO (21:16)
[2017-10-08] MEDS: NS 1,000 ML IV (01:20)
[2017-10-08] MEDS: FUROSEMIDE 40 MG/4 ML VIAL (J1940) IV ×2 (01:57→09:35)
[2017-10-08] MEDS: IPRATROPIUM 0.5MG/ALBUTEROL 2.5MG INH SOL UD 3ML (DUONEB)(J7620) NEB ×2 (02:14→07:59)
[2017-10-08] MEDS ORDERED: SLF 3 ML SYR IV (02:30)
[2017-10-08 05:08] LABS: MEAN CORPUSCULAR HEMOGLOBIN 28.4 pg (27.0-33.0); MEAN CORPUSCULAR HGB CONC 31.3 g/dl (32.0-36.5); MEAN CORPUSCULAR VOLUME 90.9 fl (80.0-96.0); PLATELET COUNT, AUTOMATED 273 10^3/uL (150-450); RED BLOOD COUNT 3.52 10^6/uL (4.00-5.40); RED CELL DISTRIBUTION WIDTH 16.1 % (11.5-14.5); WHITE BLOOD COUNT 16.3 10^3/uL (4.0-10.0)
[2017-10-08 05:23] LABS: ANION GAP 8 MEQ/L (8-16); BLOOD UREA NITROGEN 54 MG/DL (7-18); CALCIUM LEVEL 8.5 MG/DL (8.8-10.2); CARBON DIOXIDE LEVEL 31 MEQ/L (21-32); CHLORIDE LEVEL 105 MEQ/L (98-107); CREATININE FOR GFR 1.66 MG/DL (0.55-1.30); GLOMERULAR FILTRATION RATE 31.6 (>32); GLUCOSE, FASTING 289 MG/DL (70-100); MAGNESIUM LEVEL 2.8 MG/DL (1.8-2.4); POTASSIUM SERUM 3.8 MEQ/L (3.5-5.1); SODIUM LEVEL 144 MEQ/L (136-145)
[2017-10-08] MEDS: methylPREDNISolone INJ 40 MG/1 ML VIAL (J2920) IV (05:32)
[2017-10-08] MEDS: SLF 3 ML SYR IV ×2 (05:33→12:21)
[2017-10-08] MEDS: LEVOTHYROXINE 88MCG TABLET (0.088 MG) PO (05:33)
[2017-10-08] MEDS: HumaLOG INSULIN (NovoLOG) PER UNIT SC ×2 (08:34→12:20)
[2017-10-08] MEDS: diltiaZEM **CD** 180 MG CAP PO (08:34)
[2017-10-08] MEDS: APIXABAN 5 MG TAB (ELIQUIS) PO (08:35)
[2017-10-08] MEDS: guaiFENesin ER 600 MG TAB PO (08:35)
[2017-10-08] MEDS: ASPIRIN 81 MG ENTERIC TAB PO (08:35)
[2017-10-08] MEDS: PANTOPRAZOLE 40MG TAB (PROTONIX) PO (08:35)
[2017-10-08] MEDS: traMADol 50 MG TAB PO (08:35)
[2017-10-08] MEDS: SENOKOT S TAB PO (08:35)
[2017-10-08] MEDS: busPIRone 5 MG TAB PO (08:35)
[2017-10-08 11:20] LABS: BEDSIDE GLUCOSE 367 MG/DL (83-110)
[2017-10-08] MEDS: AMIODARONE 200 MG TAB (PACERONE) PO (12:20)
[2017-10-08] MEDS ORDERED: predniSONE 20 MG TAB PO (21:00)
== END 2017-10-08 13:39 | disposition short-term general hospital (02) | DRG 299 ==
LOC: M ED INP 10-05 01:47 → M PCU 10-05 03:58 → M ED 21:54
DX: I70.0 Atherosclerosis of aorta (principal); J96.21 Acute and chronic respiratory failure with hypoxia; J44.1 Chronic obstructive pulmonary disease with (acute) exacerbation; I50.32 Chronic diastolic (congestive) heart failure; I13.0 Hypertensive heart and chronic kidney disease with heart failure and stage 1 through stage 4 chronic kidney disease, or unspecified chronic kidney disease; I25.10 Atherosclerotic heart disease of native coronary artery without angina pectoris; E78.5 Hyperlipidemia, unspecified; N18.3 Chronic kidney disease, stage 3 (moderate); K21.9 Gastro-esophageal reflux disease without esophagitis; I48.2 Chronic atrial fibrillation; E11.9 Type 2 diabetes mellitus without complications; G47.33 Obstructive sleep apnea (adult) (pediatric); E03.9 Hypothyroidism, unspecified; Z88.0 Allergy status to penicillin; Z88.2 Allergy status to sulfonamides; Z88.6 Allergy status to analgesic agent; Z88.8 Allergy status to other drugs, medicaments and biological substances; Z90.49 Acquired absence of other specified parts of digestive tract; Z90.710 Acquired absence of both cervix and uterus; Z87.891 Personal history of nicotine dependence; Z79.82 Long term (current) use of aspirin; Z79.01 Long term (current) use of anticoagulants; Z79.4 Long term (current) use of insulin; Z79.891 Long term (current) use of opiate analgesic; Z79.899 Other long term (current) drug therapy; Z99.81 Dependence on supplemental oxygen

== ENCOUNTER → 2017-10-21 | Outpatient (REF) | payer MEDICARE, OTHER ==
[2017-10-21 17:11] LABS: HEMATOCRIT 33.5 % (36.0-47.0); HEMOGLOBIN 10.6 g/dl (12.0-15.5); MEAN CORPUSCULAR HEMOGLOBIN 28.4 pg (27.0-33.0); MEAN CORPUSCULAR HGB CONC 31.6 g/dl (32.0-36.5); MEAN CORPUSCULAR VOLUME 89.8 fl (80.0-96.0); PLATELET COUNT, AUTOMATED 402 10^3/uL (150-450); RED BLOOD COUNT 3.73 10^6/uL (4.00-5.40); RED CELL DISTRIBUTION WIDTH 14.4 % (11.5-14.5); WHITE BLOOD COUNT 15.9 10^3/uL (4.0-10.0)
[2017-10-21 17:49] LABS: ALBUMIN 3.1 GM/DL (3.2-5.2); ALBUMIN/GLOBULIN RATIO 0.91 (1.00-1.93); ALKALINE PHOSPHATASE 84 U/L (45-117); ALT/SGPT 34 U/L (12-78); ANION GAP 6 MEQ/L (8-16); AST/SGOT 19 U/L (7-37); BILIRUBIN,TOTAL 0.3 MG/DL (0.2-1.0); BLOOD UREA NITROGEN 32 MG/DL (7-18); CALCIUM LEVEL 8.9 MG/DL (8.8-10.2); CARBON DIOXIDE LEVEL 38 MEQ/L (21-32); CHLORIDE LEVEL 94 MEQ/L (98-107); CREATININE FOR GFR 1.49 MG/DL (0.55-1.30); GLOMERULAR FILTRATION RATE 35.8 (>32); GLUCOSE, FASTING 239 MG/DL (70-100); IRON (FE) 34 UG/DL (50-170); PERCENT SATURATION 10.7 % (13.2-45.0); POTASSIUM SERUM 4.7 MEQ/L (3.5-5.1); SODIUM LEVEL 138 MEQ/L (136-145); TOTAL IRON BINDING CAPACITY 317 UG/DL (250-450); TOTAL PROTEIN 6.5 GM/DL (6.4-8.2)
== END ==
LOC: M SFHCCAPE 10:05
DX: E11.9 Type 2 diabetes mellitus without complications (principal); J44.9 Chronic obstructive pulmonary disease, unspecified; I48.0 Paroxysmal atrial fibrillation; D50.0 Iron deficiency anemia secondary to blood loss (chronic)
CPT/HCPCS: 83550

== ENCOUNTER → 2017-12-03 | Outpatient (REF) | payer MEDICARE, OTHER ==
[2017-12-03 18:04] LABS: ANION GAP 8 MEQ/L (8-16); BLOOD UREA NITROGEN 31 MG/DL (7-18); CALCIUM LEVEL 8.5 MG/DL (8.8-10.2); CARBON DIOXIDE LEVEL 35 MEQ/L (21-32); CHLORIDE LEVEL 97 MEQ/L (98-107); CREATININE FOR GFR 1.68 MG/DL (0.55-1.30); GLOMERULAR FILTRATION RATE 31.2 (>32); GLUCOSE, FASTING 142 MG/DL (70-100); POTASSIUM SERUM 4.5 MEQ/L (3.5-5.1); SODIUM LEVEL 140 MEQ/L (136-145)
== END ==
LOC: M LABDRWCV 17:16
DX: I50.32 Chronic diastolic (congestive) heart failure (principal)
CPT/HCPCS: 80048

== ENCOUNTER → 2018-01-20 | Outpatient (REF) | payer MEDICARE, OTHER ==
[2018-01-20 16:49] LABS: HEMATOCRIT 30.4 % (36.0-47.0); MEAN CORPUSCULAR HEMOGLOBIN 25.4 pg (27.0-33.0); MEAN CORPUSCULAR HGB CONC 29.6 g/dl (32.0-36.5); MEAN CORPUSCULAR VOLUME 85.9 fl (80.0-96.0); PLATELET COUNT, AUTOMATED 296 10^3/uL (150-450); RED BLOOD COUNT 3.54 10^6/uL (4.00-5.40); RED CELL DISTRIBUTION WIDTH 14.6 % (11.5-14.5); WHITE BLOOD COUNT 8.2 10^3/uL (4.0-10.0)
[2018-01-20 18:10] LABS: ANION GAP 9 MEQ/L (8-16); BLOOD UREA NITROGEN 27 MG/DL (7-18); CARBON DIOXIDE LEVEL 33 MEQ/L (21-32); CHLORIDE LEVEL 101 MEQ/L (98-107); FREE T4 1.46 NG/DL (0.76-1.46); GLOMERULAR FILTRATION RATE 30.8 (>32); GLUCOSE, FASTING 130 MG/DL (70-100); IRON (FE) 37 UG/DL (50-170); POTASSIUM SERUM 4.2 MEQ/L (3.5-5.1); SODIUM LEVEL 143 MEQ/L (136-145); THYROID STIMULATING HORMONE 0.502 uIU/ML (0.358-3.740)
== END ==
LOC: M SFHCCAPE 09:55
DX: T46.2X1A Poisoning by other antidysrhythmic drugs, accidental (unintentional), initial encounter (principal); E03.9 Hypothyroidism, unspecified; J44.9 Chronic obstructive pulmonary disease, unspecified; K21.9 Gastro-esophageal reflux disease without esophagitis; D50.9 Iron deficiency anemia, unspecified
CPT/HCPCS: 83540

== ENCOUNTER → 2018-01-28 | Outpatient (REF) | payer MEDICARE, OTHER | LOC: M SFHCCLAY 16:33 | DX: R35.0 Frequency of micturition (principal) | CPT/HCPCS: 87186 ==

== ENCOUNTER → 2018-03-11 | Outpatient (CLI) | payer MEDICARE, OTHER ==
[2018-03-11 17:24] LABS: HEMATOCRIT 30.7 % (36.0-47.0); HEMOGLOBIN 9.1 g/dl (12.0-15.5); MEAN CORPUSCULAR HEMOGLOBIN 24.2 pg (27.0-33.0); MEAN CORPUSCULAR HGB CONC 29.6 g/dl (32.0-36.5); MEAN CORPUSCULAR VOLUME 81.6 fl (80.0-96.0); PLATELET COUNT, AUTOMATED 352 10^3/uL (150-450); RED BLOOD COUNT 3.76 10^6/uL (4.00-5.40); RED CELL DISTRIBUTION WIDTH 15.2 % (11.5-14.5); WHITE BLOOD COUNT 8.9 10^3/uL (4.0-10.0)
[2018-03-11 17:47] LABS: ALBUMIN 3.5 GM/DL (3.2-5.2); ALBUMIN/GLOBULIN RATIO 0.95 (1.00-1.93); ALKALINE PHOSPHATASE 104 U/L (45-117); ALT/SGPT 18 U/L (12-78); ANION GAP 9 MEQ/L (8-16); AST/SGOT 11 U/L (7-37); BILIRUBIN,TOTAL 0.5 MG/DL (0.2-1.0); BLOOD UREA NITROGEN 27 MG/DL (7-18); CALCIUM LEVEL 9.2 MG/DL (8.8-10.2); CARBON DIOXIDE LEVEL 34 MEQ/L (21-32); CHLORIDE LEVEL 98 MEQ/L (98-107); CREATININE FOR GFR 1.58 MG/DL (0.55-1.30); GLOMERULAR FILTRATION RATE 33.5 (>32); GLUCOSE, FASTING 98 MG/DL (70-100); MAGNESIUM LEVEL 2.5 MG/DL (1.8-2.4); POTASSIUM SERUM 4.3 MEQ/L (3.5-5.1); SODIUM LEVEL 141 MEQ/L (136-145); TOTAL PROTEIN 7.2 GM/DL (6.4-8.2)
== END ==
LOC: M CLY 10:40
DX: I50.32 Chronic diastolic (congestive) heart failure (principal); I48.0 Paroxysmal atrial fibrillation; E11.9 Type 2 diabetes mellitus without complications; D50.9 Iron deficiency anemia, unspecified
CPT/HCPCS: 83540

== ENCOUNTER → 2018-03-11 | Outpatient (REF) | payer MEDICARE, OTHER ==
[2018-03-11 18:42] LABS: IRON (FE) 31 UG/DL (50-170)
[2018-03-11 21:17] LABS: ESTIMATED AVERAGE GLUCOSE 137 MG/DL (60-110); HEMOGLOBIN A1c 6.4 %
== END ==
LOC: M SFHCCLAY 10:23
DX: D50.9 Iron deficiency anemia, unspecified (principal); E11.9 Type 2 diabetes mellitus without complications

== ENCOUNTER → 2018-04-02 | Outpatient (REF) | payer MEDICARE, OTHER ==
[2018-04-02 16:25] LABS: BASO # 0.1 10^3/uL (0.0-0.2); BASO % 0.8 % (0.0-1.0); EOS # 0.4 10^3/uL (0.0-0.50); EOS % 3.9 % (0.0-3.0); HEMATOCRIT 32.5 % (36.0-47.0); HEMOGLOBIN 9.6 g/dl (12.0-15.5); IMMATURE GRANULOCYTE % 0.5 % (0-3.0); LYMPH # 1.9 10^3/uL (1.5-4.5); LYMPH % 18.5 % (24.0-44.0); MEAN CORPUSCULAR HEMOGLOBIN 23.8 pg (27.0-33.0); MEAN CORPUSCULAR HGB CONC 29.5 g/dl (32.0-36.5); MEAN CORPUSCULAR VOLUME 80.6 fl (80.0-96.0); MONO # 0.9 10^3/uL (0.0-0.8); MONO % 8.7 % (0.0-5.0); NEUTROPHILS % 67.6 % (36.0-66.0); PLATELET COUNT, AUTOMATED 370 10^3/uL (150-450); RED BLOOD COUNT 4.03 10^6/uL (4.00-5.40); RED CELL DISTRIBUTION WIDTH 15.5 % (11.5-14.5); WHITE BLOOD COUNT 10.3 10^3/uL (4.0-10.0)
[2018-04-02 16:38] LABS: D-DIMER QUANT 357.8 ng/ml (<500)
[2018-04-02 16:55] LABS: ALBUMIN 3.6 GM/DL (3.2-5.2); ALBUMIN/GLOBULIN RATIO 0.86 (1.00-1.93); ALKALINE PHOSPHATASE 134 U/L (45-117); ALT/SGPT 21 U/L (12-78); ANION GAP 8 MEQ/L (8-16); AST/SGOT 18 U/L (7-37); BILIRUBIN,TOTAL 0.8 MG/DL (0.2-1.0); BLOOD UREA NITROGEN 25 MG/DL (7-18); CALCIUM LEVEL 8.5 MG/DL (8.8-10.2); CARBON DIOXIDE LEVEL 34 MEQ/L (21-32); CHLORIDE LEVEL 99 MEQ/L (98-107); CPK CREATINE PHOSPHOKINASE 63 U/L (26-192); GLOMERULAR FILTRATION RATE 35.6 (>32); GLUCOSE, FASTING 104 MG/DL (70-100); MB/CK RELATIVE INDEX 1.75 (< OR =4); NT-PRO BNP 1664 PG/ML (<450); POTASSIUM SERUM 4.2 MEQ/L (3.5-5.1); SODIUM LEVEL 141 MEQ/L (136-145); TOTAL PROTEIN 7.8 GM/DL (6.4-8.2)
[2018-04-02 17:41] LABS: TROPONIN I < 0.02 NG/ML (< 0.10)
== END ==
LOC: M SFHCCAPE 13:35
DX: R07.81 Pleurodynia (principal)
CPT/HCPCS: 82550

== ENCOUNTER → 2018-04-02 | Outpatient (CLI) | payer MEDICARE, BC | LOC: M CLY 15:07 | DX: R07.81 Pleurodynia (principal); R05 Cough; R91.8 Other nonspecific abnormal finding of lung field | CPT/HCPCS: 71046; 82550 ==

== ENCOUNTER → 2018-06-19 | Outpatient (REF) | payer MEDICARE, OTHER ==
[~2018-06-19] MED LIST changes: +8 HO650T2 PO; +ACET1TAB55 PO; +ACET20%4ML INH; +ADV250INH INH; +ALB2.5NEB NEB; +ALBU0.63 INH; +ALBU17IN INH; +AMIO200T37 PO; +AMIO20TA PO; +ASPI81TA24 PO; +ATOR40TA75 PO; +ATOR80TA59 PO; +AZIT500T2 PO; +BISA10SU PR; +BREO1INH3 INH; +BUSP5TA PO; +CARD180C4 PO; +CART300C PO; +CEFT500T3 PO; +CELE10TA PO; +CLOP75TA2 PO; +COLA100C5 PO; +COZA1TAB PO; +DILT180C74 PO; +DILT360C16 PO; +DILT360C2 PO; +DOXY100C PO; +DULC10SU2 PO; +DULC5TAB PO; +ELIQ5TAB PO; +FERR1TAB8 PO; +FERR325T3 PO; +FLUC10TA PO; +FURO40TA2 PO; +INSUDET SC; +IPRA2IN INH; +IRON65TA PO; -ISOVUE-370 76% 100ML VIAL (Q9967) As Ordered; +JARD1TAB PO; +LASI20TA3 PO; +LEVA1TAB2 PO; +LEVA250T13 PO; +LEVA750T7 PO; +LEVO100T5 PO; +LEVO50TA5 PO; +LEVO75TA4 PO; +LIPI80TA PO; +LOSA25TA14 PO; +METF10004 PO; +MILK120011 PO; +MIRA33504 PO; +MUCI600T37 PO; +NITR4TASL SL; +NYST10OI TOP; +NYST1POW9 TOP; +NYST50SS SS; +OCEA0.654; +OMEP20CA3 PO; +PACE200T PO; +PANT40TA3 PO; +PEG1POW PO; +PRED10PA PO; +PRED10TA2 PO; +PRED20TA PO; +PRIL20CA9 PO; +REGL5TAB2 PO; +SENN18TA PO; +SENO8.6T10 PO; +SLOW160T12 PO; +SPIR1CAP INH; +SUCR1TA PO; +SYNT50TA PO; +SYNT75TA PO; +TRAM50TA2 PO; +TYLE167L PO; +VIAC8.5C PO; +VIACCHW4 PO; +VIBR100C PO; +VITA10006 PO; +VITA100066 PO; +VITA100T20 PO; +VITMTA PO
[2018-06-19 18:08] LABS: CALCIUM LEVEL 8.4 MG/DL (8.8-10.2); CREATININE FOR GFR 1.63 MG/DL (0.55-1.30); GLOMERULAR FILTRATION RATE 32.3 (>32); POTASSIUM SERUM 3.8 MEQ/L (3.5-5.1)
== END ==
LOC: M LABDRAWC 16:06
PROVIDERS: ATTEND Physician Assistant
DX: I50.32 Chronic diastolic (congestive) heart failure (principal)

== ENCOUNTER 2018-08-16 17:23 | Inpatient (IN) | payer MEDICARE, OTHER ==
[~2018-08-16] VITALS: Ht 160 cm; Wt 78.0 kg
[2018-08-16] MEDS ORDERED: LANTINJ4 SC (17:45)
[2018-08-16] MEDS ORDERED: MECL1CHW2 PO (17:45)
[2018-08-16] MEDS ORDERED: IPRATROPIUM 0.5MG/ALBUTEROL 2.5MG INH SOL UD 3ML (DUONEB)(J7620) NEB ONE (18:00)
[2018-08-16] MEDS ORDERED: ALBUTEROL SULFATE 2.5 MG/0.5 ML INH NEB SOLN INH ONE (18:00)
[2018-08-16] MEDS ORDERED: dexameTHASONE 20 MG/5 ML VIAL (J1100) IV ONE (18:00)
[2018-08-16 18:18] LABS: BASO # 0.1 10^3/uL (0.0-0.2); BASO % 0.9 % (0.0-1.0); EOS # 0.5 10^3/uL (0.0-0.50); EOS % 5.6 % (0.0-3.0); HEMATOCRIT 29.3 % (36.0-47.0); HEMOGLOBIN 8.5 g/dl (12.0-15.5); LYMPH # 1.6 10^3/uL (1.5-4.5); LYMPH % 16.9 % (24.0-44.0); MEAN CORPUSCULAR HEMOGLOBIN 23.2 pg (27.0-33.0); MEAN CORPUSCULAR VOLUME 79.8 fl (80.0-96.0); MONO # 0.9 10^3/uL (0.0-0.8); NEUTROPHILS # 6.5 10^3/uL (1.8-7.7); NEUTROPHILS % 67.1 % (36.0-66.0); PLATELET COUNT, AUTOMATED 326 10^3/uL (150-450); RED BLOOD COUNT 3.67 10^6/uL (4.00-5.40); WHITE BLOOD COUNT 9.6 10^3/uL (4.0-10.0)
--- NOTE | 2018-08-16 18:24 | REP ---
Clinical: Cough and dyspnea. Comparison: 04/02/2018. Findings: Cardiomegaly is appreciated. Diffuse coarsened interstitial markings suggest bronchitis versus chronic reactive airway disease. Differential diagnosis includes interstitial edema. Blunting of the costophrenic angles is nonspecific but small pleural reactions cannot be excluded. No pneumothorax. Skeletal structures are intact. Impression: Diffuse coarsened interstitial markings are nonspecific. Differential diagnosis includes chronic reactive airway disease, bronchitis as well as pulmonary interstitial edema. Electronically Signed by Thien Mendez MD 08/16/2018 06:15 P
[2018-08-16 18:29] LABS: INR 1.4; PROTHROMBIN TIME 17.4 SECONDS (12.1-14.4)
[2018-08-16 18:53] LABS: ALBUMIN 3.6 GM/DL (3.2-5.2); ALT/SGPT 23 U/L (12-78); BILIRUBIN,DIRECT 0.1 MG/DL (0.0-0.2); BILIRUBIN,TOTAL 0.4 MG/DL (0.2-1.0); BLOOD UREA NITROGEN 26 MG/DL (7-18); CALCIUM LEVEL 8.2 MG/DL (8.8-10.2); CARBON DIOXIDE LEVEL 36 MEQ/L (21-32); CHLORIDE LEVEL 101 MEQ/L (98-107); CPK CREATINE PHOSPHOKINASE 67 U/L (26-192); CREATININE FOR GFR 1.57 MG/DL (0.55-1.30); GLOMERULAR FILTRATION RATE 33.7 (>32); GLUCOSE, FASTING 146 MG/DL (70-100); MB/CK RELATIVE INDEX 1.79 (< OR =4); NT-PRO BNP 2227 PG/ML (<450); POTASSIUM SERUM 3.8 MEQ/L (3.5-5.1); SODIUM LEVEL 141 MEQ/L (136-145); THYROID STIMULATING HORMONE 0.539 uIU/ML (0.358-3.740); THYROXINE (T4) 16.2 UG/DL (4.5-12.0); TOTAL PROTEIN 7.2 GM/DL (6.4-8.2); TROPONIN I < 0.02 NG/ML (< 0.10)
--- NOTE | 2018-08-16 20:14 | ECGEPIP ---
Stationary ECG Study [facility] - ED Test Date: 2018-08-16 Pat Name: HEATHER PICHARDO Department: Room: - Gender: F Chief Solution Architect: CT : 1935 Requested By: LI Rodgers Order Number: [id number] Reading MD: Corry Ching Measurements Intervals [place] Rate: 60 P: 60 [place]: 229 QRS: 87 QRSD: 168 T: -83 QT: 404 QTc: 406 Interpretive Statements SINUS RHYTHM WITH FIRST DEGREE AV BLOCK RIGHT BUNDLE BRANCH BLOCK SIMILAR 10/04/17 Electronically Signed On 08-16-2018 20:14:09 EST by Corry Ching
[2018-08-16] MEDS ORDERED: FUROSEMIDE 40 MG/4 ML VIAL (J1940) IV ONE ×2 (20:30→22:45)
[2018-08-16] MEDS: LEVEMIR (INSULIN DETEMIR) 1 UNITS/0.01ML SC SCH (21:00)
[2018-08-16] MEDS: traMADol 50 MG TAB PO SCH ×2 (21:00→22:35)
[2018-08-16] MEDS ORDERED: GLUCOSE 4 GM CHEW TABLET PO PRN (21:30)
[2018-08-16] MEDS ORDERED: GLUCAGON FOR INJ 1 MG VIAL (J1610) SC PRN (21:30)
[2018-08-16] MEDS ORDERED: DEXTROSE 50% 50 ML SYRINGE IV PRN (21:30)
[2018-08-16 21:41] LABS: ABG HCO3 32.5 MEQ/L (22.0-26.0); ABG O2 SATURATION 99.1 % (95.0-99.0); ABG PARTIAL PRESSURE CO2 45.1 mmHg (35.0-45.0); ABG PARTIAL PRESSURE O2 180.9 mmHg (75.0-100.0); ABG STANDARD HCO3 31.9 MEQ/L (22.0-26.0); ABG TOTAL CO2 33.8 MEQ/L (23.0-31.0); ABG pH (ARTERIAL) 7.475 UNITS (7.350-7.450)
[2018-08-16] MEDS ORDERED: ANOR1AER PO (21:55)
[2018-08-16] MEDS ORDERED: DILT180C43 PO (21:55)
[2018-08-16] MEDS ORDERED: FURO20TA2 PO (21:55)
[2018-08-16] MEDS ORDERED: PROAAER10 INH (21:55)
[2018-08-16] MEDS ORDERED: NITROGLYCERIN 0.4 MG SUBL TABLET SL PRN (22:00)
[2018-08-16 22:06] VITALS: BP 190/78
[2018-08-16] MEDS: SENNA 8.6 MG TAB (SENOKOT) PO SCH (22:28)
[2018-08-16] MEDS: APIXABAN 5 MG TAB (ELIQUIS) PO SCH (22:29)
[2018-08-16] MEDS: busPIRone 5 MG TAB PO SCH (22:33)
[2018-08-16] MEDS: DOXYCYCLINE HYCLATE 100 MG in D5W MINI-BAG PLUS 100 ML IV SCH (22:34)
[2018-08-17] VITALS (7 sets, daily range): BP systolic 138–172; BP diastolic 56–90
[2018-08-17] MEDS: IPRATROPIUM 0.5MG/ALBUTEROL 2.5MG INH SOL UD 3ML (DUONEB)(J7620) NEB SCH ×6 (04:00→19:58)
[2018-08-17 05:32] LABS: HEMATOCRIT 27.4 % (36.0-47.0); MEAN CORPUSCULAR HEMOGLOBIN 22.5 pg (27.0-33.0); MEAN CORPUSCULAR HGB CONC 29.2 g/dl (32.0-36.5); MEAN CORPUSCULAR VOLUME 77.2 fl (80.0-96.0); PLATELET COUNT, AUTOMATED 300 10^3/uL (150-450); RED BLOOD COUNT 3.55 10^6/uL (4.00-5.40); WHITE BLOOD COUNT 7.7 10^3/uL (4.0-10.0)
[2018-08-17] MEDS: LEVOTHYROXINE 100MCG TABLET (0.1MG) PO SCH (05:36)
[2018-08-17 05:57] LABS: BLOOD UREA NITROGEN 28 MG/DL (7-18); CALCIUM LEVEL 8.3 MG/DL (8.8-10.2); CARBON DIOXIDE LEVEL 36 MEQ/L (21-32); CHLORIDE LEVEL 98 MEQ/L (98-107); CREATININE FOR GFR 1.59 MG/DL (0.55-1.30); GLOMERULAR FILTRATION RATE 33.2 (>32); GLUCOSE, FASTING 230 MG/DL (70-100); POTASSIUM SERUM 3.7 MEQ/L (3.5-5.1); SODIUM LEVEL 139 MEQ/L (136-145); TROPONIN I < 0.02 NG/ML (< 0.10)
--- NOTE | 2018-08-17 07:37 | HPE ---
DATE OF ADMISSION: 08/16/2018 CHIEF COMPLAINT: Worsening dyspnea on exertion over the past several days. HISTORY OF PRESENT ILLNESS: The patient is an 83-year-old female. She has a significant past medical history of chronic respiratory failure secondary to chronic obstructive pulmonary disease (COPD) on 4 liters at night, coronary artery disease (CAD) status post two stents, hyperlipidemia, gastroesophageal reflux disease (GERD), moderate aortic stenosis, she follows in [place] with serial echoes. She has right sided heart failure, obstructive sleep apnea no longer on CPAP, hypothyroidism, hypertension, atrial fibrillation on Eliquis. Patient presents to the emergency room with worsening dyspnea on exertion over the last 6 days. She endorses a cough with yellowish sputum. No chest pain. She also endorses worsening lower extremity edema as well as orthopnea. She denies any abdominal pain, constipation, diarrhea or urinary symptoms. In the emergency room, she is noted to be quite tachypneic using accessory muscles of respiration. PAST MEDICAL HISTORY: See history of present illness. PAST SURGICAL HISTORY: She has had cholecystectomy. Hysterectomy. Appendectomy. Cataract surgery. Breast biopsy. HOME MEDICATIONS: As per EMR includes: - Eliquis - aspirin - Lipitor - BuSpar - diltiazem - Lasix 40 daily - detemir 20 - Synthroid 100 mcg - Losartan 25 - nitroglycerine - omeprazole - senna - tramadol - amiodarone - ferrous sulfate ALLERGIES: MYA INHIBITORS, NSAIDS, PENICILLIN, PENICILLIN CROSS REACTORS, SPIRONOLACTONE, SULFA DRUGS, SULFA DRUG CROSS REACTORS. SOCIAL HISTORY: She is a former smoker. Denies alcohol or elicit drug use. FAMILY HISTORY: Noncontributory. REVIEW OF SYSTEMS: A 12 point review of systems was completed all of which were negative except those listed in history of present illness. VITALS ON ADMISSION: Temperature 99.3, pulse 58, respirations 20, blood pressure 171/78, sating at 97% on 4 liters nasal cannula. PHYSICAL EXAMINATION: General: She is an elderly female, mildly tachypneic. Head is normocephalic, atraumatic. Eyes: Extraocular movements are intact. Pupils equal, round, and reactive to light. Neck is supple. No jugular venous distention. Lungs: Bibasilar crackles. Diminished breath sounds. No discernible wheezing. Cardiovascular: Regular rate and rhythm. Grade 2/6 systolic murmur heard at the right and left second intercostal space. Abdomen is soft, nontender, nondistended. Positive bowel sounds. No rebound. No guarding. Skin appears to be intact, no rashes, lesions or breakdown. Extremities: 1+ pitting edema. No calf tenderness. Neurological: Alert and oriented times three. No focal deficits appreciated on the exam. LABS AND IMAGING DONE IN THE ER: White count of 9, hemoglobin and hematocrit 8/29, baseline hemoglobin of 9, platelet count of 326. Coags: INR 1.4. Chemistry shows a BUN and creatinine of 26/1.5. Baseline creatinine of 1.4, 1.5. Chest x-ray shows diffuse coarsened interstitial markings. Differential diagnosis includes chronic airway disease, bronchitis as well as pulmonary interstitial edema. ASSESSMENT AND PLAN: Acute on chronic hypoxic respiratory failure likely secondary to multifactorial chronic obstructive pulmonary disease (COPD) exacerbation as well as congestive heart failure (CHF) exacerbation. Chronic obstructive pulmonary disease (COPD) DuoNebs, standing albuterol as needed. Solu-Medrol 40 every 12 hours. Insulin sliding scale while on Solu-Medrol. Oxygen. Keep oxygen saturation around 89-92%. Will get a blood gas. Possible congestive heart failure exacerbation. The patient does have right sided heart failure but she has moderate aortic stenosis. Will get an echo to evaluate to see if her ejection fraction is decreased from the advanced aortic stenosis. She follows in [place], being assessed to see if she would be a candidate for TAVR. Strict input and output, daily weights, elevate the head of the bed, Lasix 40 twice daily. Will trend troponins and EKG to rule out ACS. TSH within normal limits. Will place Metcalf if the patient becomes extremely tachypneic with very minimal exertion. Moderate aortic stenosis. Will get an echocardiogram. She is cor pulmonale, right sided heart failure, see problem 1. Obstructive sleep apnea, no longer on CPAP. Hyperthyroidism, TSH wnl, continue Synthroid. Hypertension. Continue home medications, Losartan. Atrial fibrillation. Continue Eliquis, amiodarone, diltiazem. Coronary artery disease, status post ACI. Continue aspirin, Lipitor. Diabetes, continue basal bolus insulin. Anemia. Hemoglobin stable at baseline. Chronic kidney disease (CKD) stage 3. Creatinine stable at baseline. Supportive deep venous thrombosis (DVT) prophylaxis on Eliquis. Gastroesophageal (GI) prophylaxis not indicated. Diet: Cardiac, diabetic diet. Fluid restriction. MTDD
[2018-08-17] MEDS: traMADol 50 MG TAB PO SCH ×2 (08:11→21:02)
[2018-08-17] MEDS: HumaLOG INSULIN (NovoLOG) PER UNIT SC SCH ×3 (08:11→17:55)
[2018-08-17] MEDS: ATORVASTATIN 20 MG TAB PO SCH (08:12)
[2018-08-17] MEDS: busPIRone 5 MG TAB PO SCH ×3 (08:12→21:01)
[2018-08-17] MEDS: FUROSEMIDE 40 MG/4 ML VIAL (J1940) IV SCH ×2 (08:12→17:56)
[2018-08-17] MEDS: methylPREDNISolone INJ 125 MG/2 ML VIAL (J2930) IV SCH ×2 (08:12→21:01)
[2018-08-17] MEDS: ASPIRIN 81 MG ENTERIC TAB PO SCH (08:12)
[2018-08-17] MEDS: LOSARTAN 25 MG TAB PO SCH (08:13)
[2018-08-17] MEDS: AMIODARONE 200 MG TAB (PACERONE) PO SCH (08:14)
[2018-08-17] MEDS: APIXABAN 5 MG TAB (ELIQUIS) PO SCH ×2 (08:14→21:02)
[2018-08-17] MEDS: OMEPRAZOLE 20 MG CAP PO SCH (08:14)
[2018-08-17] MEDS: FERROUS SULFATE 325MG TAB PO SCH (08:14)
[2018-08-17] MEDS: diltiaZEM **CD** 180 MG CAP PO SCH (08:15)
[2018-08-17] MEDS: DOXYCYCLINE HYCLATE 100 MG in D5W MINI-BAG PLUS 100 ML IV SCH ×2 (11:01→21:01)
--- NOTE | 2018-08-17 11:01 | IPNPDOC ---
Subjective Date Seen The patient was seen on 08/17/18. Subjective Chief Complaint/HPI Patient seen with daughter present at bedside. Briefly reviewed history of chief complaint, she came to the hospital because she had a coughing fit that caused her to become breathless and anxious. Currently she states her SOB has much improved overnight. Denies any chest pain, nausea, vomiting. Admits to non productive cough. Constitutional: Denies: Fever Pulmonary: Reports: Dyspnea (improved), Cough (non-productive); Denies: Pleuritic Chest Pain Cardiovascular: Reports: Edema (states lower extremity edema is normal for her. ); Denies: Chest Pain Gastrointestinal: Denies: Nausea, Vomiting Objective Physical Examination General Exam: Positive: Alert, Cooperative, No Acute Distress Eye Exam: Positive: EOMI, Sclera icteric ENT Exam: Positive: Atraumatic, Pharynx Normal Neck Exam: Negative: JVD Chest Exam: Positive: Rales (Fine Left lower lobe crackles), Diminished (bilaterally); Negative: Rhonchi, Wheezing Heart Exam: Positive: Rate Normal, Normal S1, Normal S2, Murmurs (Soft systolic murmur best heard at LUSB) Abdomen Exam: Positive: Normal bowel sounds, Soft; Negative: Tenderness, Hepatospenomegaly Extremity Exam: Positive: Edema (1+ pitting edema in bilateral lower extremities. ) Skin Exam: Positive: Nl turgor and temperature Neuro Exam: Positive: Normal Speech Psych Exam: Positive: Mental status NL, Mood NL Assessment /Plan Assessment Patient is an 83 year old female with PMHx of right sided heart failure presenting with a 1 day history of SOB and non-productive cough suspicious for Acute CHF secondary to now mixed diastolic/systolic heart failure. Other items on differential include mild COPD exacerbation as her sudden breathlessness seems more characteristic of bronchospasm. Overall patient is doing well today. She is scheduled for a bedside TTE to evaluate for worsening of her moderate aortic stenosis. Per her family, she was evaluated for this last year in [place] and was told it was not bad enough that surgical intervention needed to be pursued at this point. Also possible but less likely on my differential includes amiodarone toxicity causing ARDS vs. BOOP vs interstitial pneumonitis, given her at least 4 year use of the medication. Given what she looks like now and after reviewing her CXR, these are less likely diagnoses. Problems (1) Acute exacerbation of CHF (congestive heart failure) Status: Resolved Response to Treatment: Improving Discussed With: Patient, Family with Pt Consent Problem Text: 3/- Patient admitted with worsening SOB, non-productive cough, bibasilar crackles, orthopnea. Improved overnight with lasix putting out 1550 so far today and feeling much less SOB. Will continue this and monitor her clinically to see how she improves. Obtaining echo today to look for worsening aortic stenosis or possible worsening CHF, I suspect they are inter-related as aortic stenosis could potentially mimic signs and symptoms of systolic CHF. (2) COPD (chronic obstructive pulmonary disease) Status: Chronic Response to Treatment: Stable Discussed With: Patient Problem Specific Plan: Monitor Clinically Problem Text: Patient on albuterol at home. May not need IV solumedrol, will consider discontinuing today. Patient ok to continue nebs. I do not feel this is a COPD exacerbation, ABG's have been essentially normal and patient is satting in upper 90s on 4 L of her home oxygen. May also consider discontinuing doxycycline, could obtain repeat CXR to rule out although clinically patient does not seem like she has signs or symptoms of pneumonia. (3) Atrial fibrillation Status: Chronic Response to Treatment: Stable Problem Text: Continue with eliquis and cardizem (4) Coronary arteriosclerosis Status: Chronic Response to Treatment: Stable Problem Text: continue asa, STATIN, and nitroglycerin, prn (5) Iron deficiency anemia Status: Chronic Response to Treatment: Worse Problem Text: Continue home meds. Hemoglobin mildly decreased, will continue to monitor. She currently has no signs of bleeding and has not complained of black/darkened stool or hemoptysis. (6) Hypothyroidism Status: Chronic Response to Treatment: Stable Problem Text: TSH normal, T4 elevated at 16. Will continue home levothyroxine dose and have patient follow up outpatient for possible adjustment. (7) CKD (chronic kidney disease) stage 3, GFR 30-59 ml/min Status: Chronic Response to Treatment: Stable Problem Text: Stable. (8) Diabetes mellitus Status: Chronic Response to Treatment: Stable Problem Text: Continue with sliding scale insulin. (9) JASPAL (obstructive sleep apnea) Status: Chronic Problem Text: Patients ABG showing respiratory alkalosis with elevated PO2. Not sure the last time she followed with pulmonology for an adjustment (10) Hypertension Status: Chronic Response to Treatment: Improving Problem Text: Continue with patients home meds, may need to increase her home dose of losartan if these continue, will allow continued diuresis to see if her blood pressure is due to fluid overload. Plan/VTE VTE Prophylaxis Ordered?: Yes VS, I&O, 24H, [place] Vital Signs/I&O Vital Signs Date Time Temp Pulse Resp B/P (MAP) Pulse Ox O2 Delivery O2 Flow Rate FiO2 08/17/18 08:15 55 172/60 08/17/18 08:11 18 4.0 08/17/18 08:00 97.8 97 08/16/18 21:30 Nasal Cannula I&O- Last 24 Hours up to 6 AM 08/17/18 06:00 Intake Total 400 ml Output Total 1550 ml Balance -1150 ml Laboratory Data 24H LABS Laboratory Tests 2 08/16/18 17:47: Anion Gap 4L, Glomerular Filtration Rate 33.7, Calcium Level 8.2L, Aspartate Amino Transf (AST/SGOT) 20, Alanine Aminotransferase (ALT/SGPT) 23, Alkaline Phosphatase 103, Total Bilirubin 0.4, Direct Bilirubin 0.1, Total Creatine Kinase 67, Creatine Kinase MB 1.0, Creatine Kinase MB Relative Index 1.79, Troponin I < 0.02, HS-Vng-Y-Type Natriuretic Peptide 2227H, Total Protein 7.2, Albumin 3.6, Albumin/Globulin Ratio 1.00, Thyroid Stimulating Hormone (TSH) 0.539, Thyroxine (T4) 16.2H 08/16/18 18:02: Immature Granulocyte % (Auto) 0.5, White Blood Count 9.6, Red Blood Count 3.67L, Hemoglobin 8.5L, Hematocrit 29.3L, Mean Corpuscular Volume 79.8L, Mean Corpuscular Hemoglobin 23.2L, Mean Corpuscular Hemoglobin Concent 29.0L, Red Cell Distribution Width 15.9H, Platelet Count 326, Neutrophils (%) (Auto) 67.1H, Lymphocytes (%) (Auto) 16.9L, Monocytes (%) (Auto) 9.0H, Eosinophils (%) (Auto) 5.6H, Basophils (%) (Auto) 0.9, Neutrophils # (Auto) 6.5, Lymphocytes # (Auto) 1.6, Monocytes # (Auto) 0.9H, Eosinophils # (Auto) 0.5, Basophils # (Auto) 0.1, Nucleated Red Blood Cells % (auto) 0.0, Prothrombin Time 17.4H, Prothromb Time International Ratio 1.40 08/16/18 21:29: Blood Gas Bicarbonate Standard 31.9H, Arterial Blood pH 7.475H, Arterial Blood P artial Pressure CO2 45.1H, Arterial Blood Partial Pressure O2 180.9H, Arterial Blood Total CO2 33.8H, Arterial Blood HCO3 32.5H, Arterial Blood Base Excess 8.0H, Arterial Blood Oxygen Saturation 99.1H 08/16/18 22:27: Bedside Glucose (Misc Panel) 211H 08/17/18 00:09: Troponin I < 0.02 08/17/18 05:10: Troponin I < 0.02, Nucleated Red Blood Cells % (auto) 0.0, Anion Gap 5L, Glomerular Filtration Rate 33.2, Blood Urea Nitrogen 28H, Creatinine 1.59H, Sodium Level 139, Potassium Level 3.7, Chloride Level 98, Carbon Dioxide Level 36H, Calcium Level 8.3L CBC/BMP Laboratory Tests 08/16/18 17:47 08/16/18 18:02 Red Blood Count 3.67 L, Mean Corpuscular Volume 79.8 L, Mean Corpuscular Hemoglobin 23.2 L, Mean Corpuscular Hemoglobin Concent 29.0 L, Red Cell Distribution Width 15.9 H, Neutrophils (%) (Auto) 67.1 H, Lymphocytes (%) (Auto) 16.9 L, Monocytes (%) (Auto) 9.0 H, Eosinophils (%) (Auto) 5.6 H, Basophils (%) (Auto) 0.9, Neutrophils # (Auto) 6.5, Lymphocytes # (Auto) 1.6, Monocytes # (Auto) 0.9 H, Eosinophils # (Auto) 0.5, Basophils # (Auto) 0.1 08/17/18 05:10 Red Blood Count 3.55 L, Mean Corpuscular Volume 77.2 L, Mean Corpuscular Hemoglobin 22.5 L, Mean Corpuscular Hemoglobin Concent 29.2 L, Red Cell Distribution Width 15.8 H, Calcium Level 8.3 L Microbiology Microbiology 08/16/18 Blood Culture, Received Pending 08/16/18 Blood Culture, Received Pending 08/16/18 Respiratory Virus Panel (PCR) (CATHY) - Final, Complete GME ATTESTATION GME ATTESTATION My faculty preceptor for this patient encounter was physically present during the encounter and was fully available. All aspects of the patient interview, examination, medical decision making process, and medical care plan development were reviewed and approved by the faculty preceptor. The faculty preceptor is aware and concurs with the plan as stated in the body of this note and will attest to such by his/her cosignature. ATTENDING NOTE patient seen and examined. agree with findings and planned per LEANNA Mccarthy DO Aug 17, 2018 11:01 Leanna Pollack MD Aug 17, 2018 15:47
--- NOTE | 2018-08-17 14:33 | ECGEPIP ---
Stationary ECG Study [facility] Test Date: 2018-08-17 Pat Name: HEATHER PICHARDO Department: Room: [place] [address] Gender: F Callisthenics Instructor: BESSIE : 1935 Requested By: SHY FRIDAY Order Number: [id number] Reading MD: Hai Levine Measurements Intervals [place] Rate: 55 P: 74 [place]: 265 QRS: 86 QRSD: 174 T: 118 QT: 507 QTc: 489 Interpretive Statements SINUS BRADYCARDIA WITH FIRST DEGREE AV BLOCK Right bundle branch block as previously noted 08-16-18 Electronically Signed On 08-17-2018 14:32:54 EST by Hai Levine
[2018-08-17] MEDS: MECLIZINE 25 MG TABLET PO PRN (19:50)
[2018-08-17] MEDS: LEVEMIR (INSULIN DETEMIR) 1 UNITS/0.01ML SC SCH (21:01)
[2018-08-17] MEDS: SENNA 8.6 MG TAB (SENOKOT) PO SCH (21:01)
[2018-08-17] MEDS: ACETAMINOPHEN TAB 650MG DOSE (2X325MG) PO PRN (21:36)
[2018-08-17] MEDS: guaiFENesin ER 600 MG TAB PO PRN (21:36)
[2018-08-18] MEDS: IPRATROPIUM 0.5MG/ALBUTEROL 2.5MG INH SOL UD 3ML (DUONEB)(J7620) NEB SCH ×7 (04:00→23:36)
[2018-08-18 04:45] VITALS: BP 150/54
[2018-08-18 04:56] LABS: HEMATOCRIT 27.8 % (36.0-47.0); HEMOGLOBIN 8.1 g/dl (12.0-15.5); MEAN CORPUSCULAR HEMOGLOBIN 22.8 pg (27.0-33.0); MEAN CORPUSCULAR HGB CONC 29.1 g/dl (32.0-36.5); MEAN CORPUSCULAR VOLUME 78.3 fl (80.0-96.0); PLATELET COUNT, AUTOMATED 320 10^3/uL (150-450); RED BLOOD COUNT 3.55 10^6/uL (4.00-5.40); WHITE BLOOD COUNT 17.8 10^3/uL (4.0-10.0)
[2018-08-18] MEDS: LEVOTHYROXINE 100MCG TABLET (0.1MG) PO SCH (05:11)
[2018-08-18 05:29] LABS: CALCIUM LEVEL 8.2 MG/DL (8.8-10.2); CREATININE FOR GFR 1.64 MG/DL (0.55-1.30); POTASSIUM SERUM 4.2 MEQ/L (3.5-5.1)
[2018-08-18 08:00] VITALS: BP 154/60
[2018-08-18] MEDS: HumaLOG INSULIN (NovoLOG) PER UNIT SC SCH ×3 (08:24→17:40)
[2018-08-18] MEDS: traMADol 50 MG TAB PO SCH ×2 (09:00→21:00)
[2018-08-18] MEDS: methylPREDNISolone INJ 125 MG/2 ML VIAL (J2930) IV SCH ×2 (09:45→21:01)
[2018-08-18] MEDS: DOXYCYCLINE HYCLATE 100 MG in D5W MINI-BAG PLUS 100 ML IV SCH ×2 (09:45→21:00)
[2018-08-18] MEDS: FUROSEMIDE 40 MG/4 ML VIAL (J1940) IV SCH (09:46)
[2018-08-18] MEDS: ATORVASTATIN 20 MG TAB PO SCH (09:46)
[2018-08-18] MEDS: busPIRone 5 MG TAB PO SCH ×3 (09:46→20:59)
[2018-08-18] MEDS: OMEPRAZOLE 20 MG CAP PO SCH (09:47)
[2018-08-18] MEDS: diltiaZEM **CD** 180 MG CAP PO SCH (09:49)
[2018-08-18] MEDS: APIXABAN 5 MG TAB (ELIQUIS) PO SCH ×2 (09:49→20:59)
[2018-08-18] MEDS: AMIODARONE 200 MG TAB (PACERONE) PO SCH (09:49)
[2018-08-18] MEDS: ASPIRIN 81 MG ENTERIC TAB PO SCH (09:49)
[2018-08-18] MEDS: LOSARTAN 25 MG TAB PO SCH (09:49)
--- NOTE | 2018-08-18 10:27 | REP ---
PORTABLE CHEST X-RAY: Sitting AP view. HISTORY: Check for left lower lobe infiltrate. COMPARISON STUDY: August 16, 2018. FINDINGS: EKG monitoring electrodes are again seen. Oxygen delivery tubing is seen. There is plate-like atelectasis in the left base and there is blunting of the left lateral pleural angle. Heart is mildly prominent unchanged. Pulmonary vasculature is not increased. The right lung appears clear. IMPRESSION: Blunted left lateral pleural angle. Plate-like atelectasis left base. No definite infiltrate. Mild cardiac enlargement again noted. Electronically Signed by Bang Christopher MD 08/18/2018 11:13 A
--- NOTE | 2018-08-18 11:00 | IPNPDOC ---
Subjective Date Seen The patient was seen on 08/18/18. Subjective Chief Complaint/HPI Patient seen at bedside this AM. Had an episode of nausea and a cough productive of yellow sputum treated with tylenol and mucinex. She states today she feels weak and more fatigued than the day prior. Denies any chest pain, worsening dyspnea, emesis, abdominal pain, dysuria, or hematuria. Endorses that she still has not had a bowel movement, states she usually takes miralax at home. General: Reports: Malaise, Normal Appetite Constitutional: Reports: Weakness, Fatigue; Denies: Chills, Fever ENT: Denies: Head Aches Pulmonary: Reports: Dyspnea (not any worse than baseline), Cough (productive of yellow sputum) Cardiovascular: Denies: Chest Pain Gastrointestinal: Reports: Nausea, Constipation; Denies: Vomiting, Abdominal Pain, Diarrhea Genitourinary: Denies: Dysuria Objective Physical Examination General Exam: Positive: Alert (Very tired appearing today), Cooperative, No Acute Distress Eye Exam: Positive: EOMI; Negative: Sclera icteric ENT Exam: Positive: Atraumatic, Mucous membr. moist/pink, Pharynx Normal (No pharyngeal erythema or exudate), Tongue Midline, Nares Patent; Negative: Pharyngeal Edema Neck Exam: Negative: JVD Chest Exam: Positive: Clear to auscultation, Rales (patient still has fine left lower lobe crackles), Diminished (bilaterally); Negative: Rhonchi, Wheezing Heart Exam: Positive: Rate Normal, Normal S1, Normal S2, Murmurs (Soft systolic murmur best heard at LUSB) Abdomen Exam: Positive: Normal bowel sounds, Soft; Negative: Tenderness, Hepatospenomegaly Extremity Exam: Positive: Edema (1+ pitting edema in bilateral lower extremities. ) Skin Exam: Positive: Nl turgor and temperature Neuro Exam: Positive: Normal Speech Psych Exam: Positive: Mental status NL, Mood NL Assessment /Plan Assessment Patient is complaining of a productive cough with yellow sputum and new onset fatigue, nausea, and weakness. She also has an elevated WBC count. Initially, I suspected she may be dehydrated given her diuresis, she is down 1 kg since admission. She also has been on IV steroids, but 17.8 seems high even for steroids and subjectively she is feeling clinically. A repeat CXR does not show a worsening infiltrate or effusion, but I will order a sputum culture and gram stain just to be sure doxycycline is covering her appropriately. She is tole rating her urinary catheter well and having good output, but it is possible this could be a source of an infection, she was not complaining of any urinary symptoms prior to admission, nor is she doing so now. Results of the echo are still pending. Problems (1) Acute exacerbation of CHF (congestive heart failure) Status: Resolved Response to Treatment: Improving Discussed With: Patient, Family with Pt Consent Problem Text: 3- Urine output is adequate. Her lungs still have fine crackles on auscultation with peripheral lower extremity edema, but repeat CXR shows their is plate-like atelectasis in the left base and blunting of the left lateral pleural angle. 3/- Patient admitted with worsening SOB, non-productive cough, bibasilar crackles, orthopnea. Improved overnight with lasix putting out 1550 so far today and feeling much less SOB. Will continue this and monitor her clinically to see how she improves. Obtaining echo today to look for worsening aortic stenosis or possible worsening CHF, I suspect they are inter-related as aortic stenosis could potentially mimic signs and symptoms of systolic CHF. (2) COPD (chronic obstructive pulmonary disease) Status: Chronic Response to Treatment: Stable Discussed With: Patient Problem Specific Plan: Monitor Clinically Problem Text: 08/18- Patient complaining of vague symptoms and continued cough with yellow sputum production. She states her breathing is fine and is at baseline for her. Obtained repeat imaging to look for new or worsening LLL infiltrate, but no definite infiltrate is seen, their is atelectasis and effusion still present in left lower lobe. Will obtain sputum culture and gram stain to ensure doxycycline is appropriately covering her for an infection. 3/4-Patient on albuterol at home. May not need IV solumedrol, will consider discontinuing today. Patient ok to continue nebs. I do not feel this is a COPD exacerbation, ABG's have been essentially normal and patient is satting in upper 90s on 4 L of her home oxygen. May also consider discontinuing doxycycline, could obtain repeat CXR to rule out although clinically patient does not seem like she has signs or symptoms of pneumonia. (3) Atrial fibrillation Status: Chronic Response to Treatment: Stable Problem Text: 08/18-stable HR controlled, continue home meds 3/4-Continue with eliquis and ted (4) Coronary arteriosclerosis Status: Chronic Response to Treatment: Stable Problem Text: 08/18-Continue home medications 3/-continue asa, statin, and nitroglycerin, prn (5) Iron deficiency anemia Status: Chronic Response to Treatment: Stable, Worse Problem Text: Continue home meds. Hemoglobin mildly decreased, will continue to monitor. She currently has no signs of bleeding and has not complained of black/darkened stool or hemoptysis. (6) Hypothyroidism Status: Chronic Response to Treatment: Stable Problem Text: TSH normal, T4 elevated at 16. Will continue home levothyroxine dose and have patient follow up outpatient for possible adjustment. (7) CKD (chronic kidney disease) stage 3, GFR 30-59 ml/min Status: Chronic Response to Treatment: Stable Problem Text: 08/18- Creatinine at about baseline compared with prior visits. BUN elevated. still making good urine. /-Stable. (8) Diabetes mellitus Status: Chronic Response to Treatment: Stable Problem Text: Continue with sliding scale insulin. (9) JASPAL (obstructive sleep apnea) Status: Chronic Problem Text: Patients ABG showing respiratory alkalosis with elevated PO2. Not sure the last time she followed with pulmonology for an adjustment (10) Hypertension Status: Chronic Response to Treatment: Improving Problem Text: 08/18- Blood pressure improving. 08/17-Continue with patients home meds, may need to increase her home dose of losartan if these continue, will allow continued diuresis to see if her blood pressure is due to fluid overload. Plan/VTE VTE Prophylaxis Ordered?: Yes VS, I&O, 24H, Fishbone Vital Signs/I&O Vital Signs Date Time Temp Pulse Resp B/P (MAP) Pulse Ox O2 Delivery O2 Flow Rate FiO2 08/18/18 09:49 154/60 08/18/18 09:49 57 08/18/18 09:00 20 08/18/18 08:00 97.9 98 4.0 08/16/18 21:30 Nasal Cannula I&O- Last 24 Hours up to 6 AM 08/18/18 06:00 Intake Total 1450 ml Output Total 1625 ml Balance -175 ml Laboratory Data 24H LABS Laboratory Tests 2 08/17/18 11:54: Bedside Glucose (Misc Panel) 284H 08/17/18 17:06: Bedside Glucose (Misc Panel) 253H 08/17/18 20:46: Bedside Glucose (Misc Panel) 235H 08/18/18 04:14: Nucleated Red Blood Cells % (auto) 0.0, Anion Gap 7L, Glomerular Filtration Rate 32.0, Blood Urea Nitrogen 44#H, Creatinine 1.64H, Sodium Level 138, Potassium Level 4.2, Chloride Level 97L, Carbon Dioxide Level 34H, Calcium Level 8.2L 08/18/18 07:49: Bedside Glucose (Misc Panel) 175H CBC/BMP Laboratory Tests 08/18/18 04:14 Red Blood Count 3.55 L, Mean Corpuscular Volume 78.3 L, Mean Corpuscular Hemoglobin 22.8 L, Mean Corpuscular Hemoglobin Concent 29.1 L, Red Cell Distribu tion Width 15.8 H, Calcium Level 8.2 L Microbiology Microbiology 08/16/18 Blood Culture - Preliminary, Resulted No growth after 24 hours . All specim... 08/16/18 Blood Culture - Preliminary, Resulted No growth after 24 hours . All specim... 08/16/18 Respiratory Virus Panel (PCR) ([facility]) - Final, Complete GME ATTESTATION GME ATTESTATION My faculty preceptor for this patient encounter was physically present during the encounter and was fully available. All aspects of the patient interview, examination, medical decision making process, and medical care plan development were reviewed and approved by the faculty preceptor. The faculty preceptor is aware and concurs with the plan as stated in the body of this note and will attest to such by his/her cosignature. ATTENDING NOTE agree with findings and plan as documented. LEANNA RAMIREZ DO Aug 18, 2018 11:00 Leanna Pollack MD Aug 21, 2018 08:58
[2018-08-18 12:00] VITALS: BP 142/58
[2018-08-18 16:00] VITALS: BP 164/60
[2018-08-18 20:00] VITALS: BP 152/54
[2018-08-18] MEDS: SENNA 8.6 MG TAB (SENOKOT) PO SCH (20:59)
[2018-08-18] MEDS: guaiFENesin ER 600 MG TAB PO PRN (20:59)
[2018-08-18] MEDS: MECLIZINE 25 MG TABLET PO PRN (21:00)
[2018-08-18] MEDS: LEVEMIR (INSULIN DETEMIR) 1 UNITS/0.01ML SC SCH (21:01)
[2018-08-19] VITALS: BP 166/62
[2018-08-19] MEDS: ACETAMINOPHEN TAB 650MG DOSE (2X325MG) PO PRN (01:49)
[2018-08-19 04:00] VITALS: BP 164/62
[2018-08-19] MEDS: IPRATROPIUM 0.5MG/ALBUTEROL 2.5MG INH SOL UD 3ML (DUONEB)(J7620) NEB SCH ×6 (04:00→23:43)
[2018-08-19 05:10] LABS: HEMATOCRIT 28.3 % (36.0-47.0); HEMOGLOBIN 8.2 g/dl (12.0-15.5); MEAN CORPUSCULAR HEMOGLOBIN 22.4 pg (27.0-33.0); MEAN CORPUSCULAR VOLUME 77.3 fl (80.0-96.0); PLATELET COUNT, AUTOMATED 337 10^3/uL (150-450); RED BLOOD COUNT 3.66 10^6/uL (4.00-5.40); WHITE BLOOD COUNT 17.7 10^3/uL (4.0-10.0)
[2018-08-19 05:26] LABS: CALCIUM LEVEL 8.1 MG/DL (8.8-10.2); CREATININE FOR GFR 1.67 MG/DL (0.55-1.30); GLOMERULAR FILTRATION RATE 31.3 (>32); POTASSIUM SERUM 4.1 MEQ/L (3.5-5.1)
[2018-08-19] MEDS: LEVOTHYROXINE 100MCG TABLET (0.1MG) PO SCH (05:50)
[2018-08-19] MEDS: HumaLOG INSULIN (NovoLOG) PER UNIT SC SCH ×3 (07:40→18:38)
[2018-08-19 08:00] VITALS: BP 122/62
[2018-08-19] MEDS ORDERED: FUROSEMIDE 40 MG/4 ML VIAL (J1940) IV SCH (09:00)
[2018-08-19] MEDS: methylPREDNISolone INJ 125 MG/2 ML VIAL (J2930) IV SCH (09:03)
[2018-08-19] MEDS: traMADol 50 MG TAB PO SCH ×2 (09:04→21:00)
[2018-08-19] MEDS: ATORVASTATIN 20 MG TAB PO SCH (09:05)
[2018-08-19] MEDS: OMEPRAZOLE 20 MG CAP PO SCH (09:05)
[2018-08-19] MEDS: busPIRone 5 MG TAB PO SCH ×3 (09:05→21:28)
[2018-08-19] MEDS: ASPIRIN 81 MG ENTERIC TAB PO SCH (09:05)
[2018-08-19] MEDS: LOSARTAN 25 MG TAB PO SCH (09:05)
[2018-08-19] MEDS: AMIODARONE 200 MG TAB (PACERONE) PO SCH (09:05)
[2018-08-19] MEDS: diltiaZEM **CD** 180 MG CAP PO SCH (09:05)
[2018-08-19] MEDS: APIXABAN 5 MG TAB (ELIQUIS) PO SCH ×2 (09:05→21:30)
[2018-08-19] MEDS: FERROUS SULFATE 325MG TAB PO SCH (09:06)
[2018-08-19] MEDS: DOXYCYCLINE HYCLATE 100 MG in D5W MINI-BAG PLUS 100 ML IV SCH (10:36)
[2018-08-19 12:00] VITALS: BP 130/50
[2018-08-19 16:00] VITALS: BP 130/50
[2018-08-19 20:00] VITALS: BP 142/60
[2018-08-19] MEDS: ALBUTEROL SULFATE 2.5 MG/0.5 ML INH NEB SOLN NEB PRN (20:14)
[2018-08-19] MEDS: guaiFENesin ER 600 MG TAB PO PRN (21:29)
[2018-08-19] MEDS: SENNA 8.6 MG TAB (SENOKOT) PO SCH (21:29)
[2018-08-19] MEDS: predniSONE 20 MG TAB PO SCH (21:29)
[2018-08-19] MEDS: LEVEMIR (INSULIN DETEMIR) 1 UNITS/0.01ML SC SCH (21:29)
[2018-08-19] MEDS: DOXYCYCLINE HYCLATE 100 MG TAB PO SCH (21:30)
[2018-08-20] MEDS: IPRATROPIUM 0.5MG/ALBUTEROL 2.5MG INH SOL UD 3ML (DUONEB)(J7620) NEB SCH ×6 (03:36→23:29)
[2018-08-20 04:00] VITALS: BP 148/68
[2018-08-20] MEDS: LEVOTHYROXINE 100MCG TABLET (0.1MG) PO SCH (05:23)
[2018-08-20 06:09] LABS: HEMATOCRIT 27.2 % (36.0-47.0); HEMOGLOBIN 8.1 g/dl (12.0-15.5); MEAN CORPUSCULAR HEMOGLOBIN 23.3 pg (27.0-33.0); MEAN CORPUSCULAR HGB CONC 29.8 g/dl (32.0-36.5); MEAN CORPUSCULAR VOLUME 78.4 fl (80.0-96.0); PLATELET COUNT, AUTOMATED 323 10^3/uL (150-450); RED BLOOD COUNT 3.47 10^6/uL (4.00-5.40); WHITE BLOOD COUNT 14.2 10^3/uL (4.0-10.0)
[2018-08-20 06:27] LABS: CREATININE FOR GFR 1.46 MG/DL (0.55-1.30); GLOMERULAR FILTRATION RATE 36.6 (>32)
[2018-08-20 08:00] VITALS: BP 152/58
[2018-08-20] MEDS: ATORVASTATIN 20 MG TAB PO SCH (08:26)
[2018-08-20] MEDS: HumaLOG INSULIN (NovoLOG) PER UNIT SC SCH ×3 (08:26→18:13)
[2018-08-20] MEDS: busPIRone 5 MG TAB PO SCH ×3 (08:26→19:55)
[2018-08-20] MEDS: predniSONE 20 MG TAB PO SCH ×2 (08:27→19:55)
[2018-08-20] MEDS: diltiaZEM **CD** 180 MG CAP PO SCH (08:29)
[2018-08-20] MEDS: OMEPRAZOLE 20 MG CAP PO SCH (08:29)
[2018-08-20] MEDS: LOSARTAN 25 MG TAB PO SCH (08:30)
[2018-08-20] MEDS: APIXABAN 5 MG TAB (ELIQUIS) PO SCH ×2 (08:30→19:55)
[2018-08-20] MEDS: ASPIRIN 81 MG ENTERIC TAB PO SCH (08:30)
[2018-08-20] MEDS: DOXYCYCLINE HYCLATE 100 MG TAB PO SCH ×2 (08:30→19:55)
[2018-08-20] MEDS: FUROSEMIDE 40 MG TAB PO SCH (08:31)
[2018-08-20] MEDS: AMIODARONE 200 MG TAB (PACERONE) PO SCH (08:31)
[2018-08-20] MEDS: traMADol 50 MG TAB PO SCH ×2 (08:31→20:53)
[2018-08-20] MEDS: guaiFENesin ER 600 MG TAB PO PRN (09:47)
--- NOTE | 2018-08-20 10:40 | IPNPDOC ---
Subjective Date Seen The patient was seen on 08/20/18. Subjective Chief Complaint/HPI Patient seen resting in her chair at bedside this morning. No acute events overnight. She is complaining of increase breathlessness and wheezing and feels like she has had more of that since being in the hospital. Denies any chest pain, abdominal pain, nausea, vomiting, diarrhea, constipation. She does state she has not had a BM since being in the hospital but she does not feel like she needs to go. Objective Physical Examination General Exam: Positive: Alert (Very tired appearing today), Cooperative, No Acute Distress Eye Exam: Positive: EOMI; Negative: Sclera icteric ENT Exam: Positive: Atraumatic, Mucous membr. moist/pink, Pharynx Normal (No p haryngeal erythema or exudate), Tongue Midline, Nares Patent; Negative: Pharyngeal Edema Neck Exam: Negative: JVD Chest Exam: Positive: Clear to auscultation, Rhonchi (expiratory rhonchi), Wheezing (inspiratory wheezing), Diminished (bilaterally); Negative: Rales Heart Exam: Positive: Rate Normal, Normal S1, Normal S2, Murmurs (Soft systolic murmur best heard at LUSB) Abdomen Exam: Positive: Normal bowel sounds, Soft; Negative: Tenderness, Hepatospenomegaly Extremity Exam: Positive: Edema (1+ pitting edema in bilateral lower extremities. ) Skin Exam: Positive: Nl turgor and temperature Neuro Exam: Positive: Normal Speech Psych Exam: Positive: Mental status NL, Mood NL Assessment /Plan Problems (1) Acute exacerbation of CHF (congestive heart failure) Status: Resolved Response to Treatment: Improving Discussed With: Patient, Family with Pt Consent Problem Text: 08/20- Patient now on PO lasix as her creatinine was continuing to creep up. She is tolerating the PO lasix well and continues to have good urine output. She no longer has crackles at the base of her left lung. 08/18- Urine output is adequate. Her lungs still have fine crackles on auscultation with peripheral lower extremity edema, but repeat CXR shows their is plate-like atelectasis in the left base and blunting of the left lateral pleural angle. 08/17- Patient admitted with worsening SOB, non-productive cough, bibasilar crackles, orthopnea. Improved overnight with lasix putting out 1550 so far today and feeling much less SOB. Will continue this and monitor her clinically to see how she improves. Obtaining echo today to look for worsening aortic stenosis or possible worsening CHF, I suspect they are inter-related as aortic stenosis could potentially mimic signs and symptoms of systolic CHF. (2) COPD (chronic obstructive pulmonary disease) Status: Chronic Response to Treatment: Stable Discussed With: Patient Problem Specific Plan: Monitor Clinically Problem Text: 08/20- Sputum culture and gram stain not collected because patient doesn't feel like she can bring anything up. Since she is improving and has already been on Doxy for 3 days I will discontinue this order. 08/18- Patient complaining of vague symptoms and continued cough with yellow sputum production. She states her breathing is fine and is at baseline for her. Obtained repeat imaging to look for new or worsening LLL infiltrate, but no definite infiltrate is seen, their is atelectasis and effusion still present in left lower lobe. Will obtain sputum culture and gram stain to ensure doxycycline is appropriately covering her for an infection. 08/17-Patient on albuterol at home. May not need IV solumedrol, will consider discontinuing today. Patient ok to continue nebs. I do not feel this is a COPD exacerbation, ABG's have been essentially normal and patient is satting in upper 90s on 4 L of her home oxygen. May also consider discontinuing doxycycline, could obtain repeat CXR to rule out although clinically patient does not seem like she has signs or symptoms of pneumonia. (3) Physical deconditioning Status: Acute Problem Text: Physical therapy to evaluate and see patient today. (4) Atrial fibrillation Status: Chronic Response to Treatment: Stable Problem Text: 08/20- Continue home meds. 08/18-stable HR controlled, continue home meds 3/-Continue with eliquis and cardizem (5) Coronary arteriosclerosis Status: Chronic Response to Treatment: Stable Problem Text: 08/18-Continue home medications 3/-continue asa, statin, and nitroglycerin, prn (6) Iron deficiency anemia Status: Chronic Response to Treatment: Stable, Worse Problem Text: Continue home meds. Hemoglobin mildly decreased, will continue to monitor. She currently has no signs of bleeding and has not complained of black/darkened stool or hemoptysis. (7) Hypothyroidism Status: Chronic Response to Treatment: Stable Problem Text: TSH normal, T4 elevated at 16. Will continue home levothyroxine d ose and have patient follow up outpatient for possible adjustment. (8) CKD (chronic kidney disease) stage 3, GFR 30-59 ml/min Status: Chronic Response to Treatment: Stable Problem Text: 08/18- Creatinine at about baseline compared with prior visits. BUN elevated. still making good urine. 08/17-Stable. (9) Diabetes mellitus Status: Chronic Response to Treatment: Stable Problem Text: Continue with sliding scale insulin. (10) JASPAL (obstructive sleep apnea) Status: Chronic Problem Text: Patients ABG showing respiratory alkalosis with elevated PO2. Not sure the last time she followed with pulmonology for an adjustment (11) Hypertension Status: Chronic Response to Treatment: Improving Problem Text: 08/18- Blood pressure improving. 08/17-Continue with patients home meds, may need to increase her home dose of losartan if these continue, will allow continued diuresis to see if her blood pressure is due to fluid overload. 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 lung disease makes her not a good candidate for conventional valve replacement. previous eval has it that her valve isn't sufficiently severe to justify transcutaneous approach. Plan/VTE VTE Prophylaxis Ordered?: Yes VS, I&O, 24H, Fishbone Vital Signs/I&O Vital Signs Date Time Temp Pulse Resp B/P (MAP) Pulse Ox O2 Delivery O2 Flow Rate FiO2 08/20/18 08:34 4.0 08/20/18 08:31 18 08/20/18 08:30 168/60 08/20/18 08:29 62 08/20/18 08:00 98.1 98 08/16/18 21:30 Nasal Cannula I&O- Last 24 Hours up to 6 AM 08/20/18 06:00 Intake Total 1270 ml Output Total 1500 ml Balance -230 ml Laboratory Data 24H LABS Laboratory Tests 2 08/19/18 11:47: Bedside Glucose (Misc Panel) 280H 08/19/18 17:46: Bedside Glucose (Misc Panel) 278H 08/19/18 20:22: Bedside Glucose (Misc Panel) 338H 08/20/18 05:41: Nucleated Red Blood Cells % (auto) 0.0, Anion Gap 5L, Glomerular Filtration Rate 36.6, Blood Urea Nitrogen 58H, Creatinine 1.46H, Sodium Level 139, Potassium Level 4.0, Chloride Level 100, Carbon Dioxide Level 34H, Calcium Level 8.0L CBC/BMP Laboratory Tests 08/20/18 05:41 Red Blood Count 3.47 L, Mean Corpuscular Volume 78.4 L, Mean Corpuscular Hemoglobin 23.3 L, Mean Corpuscular Hemoglobin Concent 29.8 L, Red Cell Distribution Width 15.9 H, Calcium Level 8.0 L Microbiology Microbiology 08/16/18 Blood Culture - Preliminary, Resulted No Growth after 72 hours. All specime... 08/16/18 Blood Culture - Preliminary, Resulted No Growth after 72 hours. All specime... 08/16/18 Respiratory Virus Panel (PCR) ([facility]) - Final, Complete GME ATTESTATION GME ATTESTATION My faculty preceptor for this patient encounter was physically present during the encounter and was fully available. All aspects of the patient interview, examination, medical decision making process, and medical care plan development were reviewed and approved by the faculty preceptor. The faculty preceptor is aware and concurs with the plan as stated in the body of this note and will attest to such by his/her cosignature. LEANNA RAMIREZ DO Aug 20, 2018 10:40 Leanna Pollack MD Aug 21, 2018 09:02
[2018-08-20 12:00] VITALS: BP 152/50
[2018-08-20] MEDS: ALBUTEROL SULFATE 2.5 MG/0.5 ML INH NEB SOLN NEB PRN (13:49)
--- NOTE | 2018-08-20 15:19 | ECHO ---
DATE OF PROCEDURE: 08/17/2018 REFERRING PHYSICIAN: Friday INDICATION: Dyspnea. HEIGHT: 160 cm WEIGHT: 77 kg 2D MEASUREMENTS: Aortic root 3.2 cm Left atrium 4.7 cm Ventricular septum: 1.36 cm Posterior wall: 1.41 cm Left ventricle diastole: 4.6 cm LVOT dimension 2.0 cm Proximal ascending aorta 3.5 cm Inferior vena cava: 2.1 cm DOPPLER MEASUREMENTS: Aortic stenosis (severe by dimensionless index and aortic valve area; moderate as judged by mean aortic valve gradient and peak aortic valve velocity). Very mild aortic regurgitation. Aortic valve velocity 347 cm/sec. Peak aortic gradient 48 mmHg. Mean aortic valve gradient 30 mmHg Aortic valve VTI 99.5 cm Aortic valve area (continuity equation VTI) 0.74 cm2 Dimensionless index 0.23 LVOT velocity 89.5 cm/sec LVOT VTI 23.3 cm Very mild mitral regurgitation No mitral stenosis Mitral E velocity 122 cm/sec Mitral A velocity 78 cm/sec Mitral deceleration time 78 ms Mild tricuspid regurgitation Estimated right ventricle systolic pressure at least 47 mmHg assuming a assuming a right atrial pressure of at least 20 mmHg based on a dilated inferior vena cava with reduced respiratory variation Mild pulmonic regurgitation. MITRAL ANNULAR TISSUE DOPPLER: E prime septal: 4.1 cm/s E prime lateral: 6.0 cm/s DESCRIPTION: Rhythm was sinus bradycardia with appearance of first degree AV block. Image quality was fair. No pericardial effusion. This was a 2-D, M-Mode, color flow Doppler and pulse wave Doppler examination and included mitral annular tissue Doppler. CONCLUSIONS: 1. Severe focal thickening and focal calcific deposits of a 3-cusp aortic valve with severe reduction in aortic cusp mobility. Aortic valve stenosis considered to be severe on the basis of aortic valve area calculation (0.74 cm) and dimensionless index (0.23). Aortic valve stenosis considered to be moderate on the basis of peak aortic valve velocity (3.4 cm/sec) and mean aortic valve gradient (30 mmHg). 2. Mild concentric left ventricle hypertrophy. No regional LV wall motion abnormalities. Normal regional LV wall motion and wall thickening. Left ventricular ejection fraction of 65% by visual estimate. Normal LV systolic function. Grade II LV diastolic dysfunction (normal filling pattern). 3. Moderate left atrial dilatation. 4. Severe mitral annular calcification. Very mild mitral regurgitation. No mitral stenosis. 5. Suggestive of moderate elevation of estimated right ventricle systolic pressure (47 mmHg). Mild tricuspid regurgitation. Normal right ventricle size and systolic function. Inferior vena cava dilatation suggestive of elevated central venous pressure of at least 20 mmHg. ADDITIONAL COMMENTS AND RECOMMENDATIONS: Consider aortic valve replacement if the patient is a suitable candidate.
[2018-08-20 16:00] VITALS: BP 162/52
[2018-08-20] MEDS ORDERED: MIRALAX *UNIT DOSE* 17GM PACKET PO PRN (16:15)
[2018-08-20 19:37] VITALS: BP 165/65
[2018-08-20] MEDS: LEVEMIR (INSULIN DETEMIR) 1 UNITS/0.01ML SC SCH (19:55)
[2018-08-20] MEDS: SENNA 8.6 MG TAB (SENOKOT) PO SCH (19:55)
[2018-08-21] MEDS: ALBUTEROL SULFATE 2.5 MG/0.5 ML INH NEB SOLN NEB PRN (00:04)
[2018-08-21] MEDS: IPRATROPIUM 0.5MG/ALBUTEROL 2.5MG INH SOL UD 3ML (DUONEB)(J7620) NEB SCH ×5 (03:57→19:41)
[2018-08-21 05:47] LABS: HEMATOCRIT 27.3 % (36.0-47.0); MEAN CORPUSCULAR HEMOGLOBIN 22.6 pg (27.0-33.0); MEAN CORPUSCULAR HGB CONC 29.3 g/dl (32.0-36.5); MEAN CORPUSCULAR VOLUME 77.1 fl (80.0-96.0); PLATELET COUNT, AUTOMATED 326 10^3/uL (150-450); RED BLOOD COUNT 3.54 10^6/uL (4.00-5.40); WHITE BLOOD COUNT 11.9 10^3/uL (4.0-10.0)
[2018-08-21] MEDS: LEVOTHYROXINE 100MCG TABLET (0.1MG) PO SCH (05:56)
[2018-08-21 06:16] LABS: CALCIUM LEVEL 7.9 MG/DL (8.8-10.2); CREATININE FOR GFR 1.4 MG/DL (0.55-1.30); GLOMERULAR FILTRATION RATE 38.4 (>32); POTASSIUM SERUM 4.2 MEQ/L (3.5-5.1)
[2018-08-21 07:57] VITALS: BP 124/86
[2018-08-21] MEDS: DOCUSATE SODIUM 100 MG CAP PO SCH (09:00)
[2018-08-21] MEDS: traMADol 50 MG TAB PO SCH ×2 (09:00→20:06)
[2018-08-21] MEDS: predniSONE 20 MG TAB PO SCH (09:23)
[2018-08-21] MEDS: ATORVASTATIN 20 MG TAB PO SCH (09:23)
[2018-08-21] MEDS: FUROSEMIDE 40 MG TAB PO SCH (09:23)
[2018-08-21] MEDS: OMEPRAZOLE 20 MG CAP PO SCH (09:23)
[2018-08-21] MEDS: FERROUS SULFATE 325MG TAB PO SCH (09:24)
[2018-08-21] MEDS: DOXYCYCLINE HYCLATE 100 MG TAB PO SCH (09:24)
[2018-08-21] MEDS: AMIODARONE 200 MG TAB (PACERONE) PO SCH (09:24)
[2018-08-21] MEDS: diltiaZEM **CD** 180 MG CAP PO SCH (09:24)
[2018-08-21] MEDS: APIXABAN 5 MG TAB (ELIQUIS) PO SCH ×2 (09:24→20:02)
[2018-08-21] MEDS: ASPIRIN 81 MG ENTERIC TAB PO SCH (09:24)
[2018-08-21] MEDS: busPIRone 5 MG TAB PO SCH ×3 (09:24→20:03)
[2018-08-21] MEDS: LOSARTAN 25 MG TAB PO SCH (09:25)
[2018-08-21] MEDS: HumaLOG INSULIN (NovoLOG) PER UNIT SC SCH ×3 (09:25→18:44)
[2018-08-21 11:24] VITALS: BP 152/66
--- NOTE | 2018-08-21 13:58 | IPNPDOC ---
Subjective Date Seen The patient was seen on 08/21/18. Subjective Chief Complaint/HPI Patient is seen in her chair at bedside. She notes she continues to have worsening dyspnea with exertion. Otherwise no acute events overnight. Patient not complaining of fevers, chills, chest pain, nausea, abdominal pain, emesis. Pulmonary: Reports: Cough Objective Physical Examination General Exam: Positive: Alert, Cooperative, No Acute Distress Eye Exam: Positive: EOMI; Negative: Sclera icteric ENT Exam: Positive: Atraumatic, Mucous membr. moist/pink, Pharynx Normal (No pharyngeal erythema or exudate), Tongue Midline, Nares Patent; Negative: Pharyngeal Edema Neck Exam: Negative: JVD Chest Exam: Positive: Clear to auscultation, Rhonchi (expiratory rhonchi), Wheezing, Diminished (bilaterally); Negative: Rales Heart Exam: Positive: Rate Normal, Normal S1, Normal S2, Murmurs (Soft systolic murmur best heard at LUSB) Abdomen Exam: Positive: Normal bowel sounds, Soft; Negative: Tenderness, Hepatospenomegaly Extremity Exam: Positive: Edema (1+ pitting edema in bilateral lower extremities. ); Negative: Clubbing, Cyanosis Skin Exam: Positive: Nl turgor and temperature Neuro Exam: Positive: Normal Speech Psych Exam: Positive: Mental status NL, Mood NL Assessment /Plan Problems (1) Aortic stenosis, severe Status: Chronic Problem Text: 08/21- Echo results are back and demonstrate moderate stenosis by mean aortic valve gradient and peak aortic velocity and severe aortic stenosis by dimensionless index and aortic valve area. At this time I don't feel their are better explanations for her worsening dyspnea during admission. Cardiology has been consulted and they are recommending transfer to [place] for surgical repair of her stenosis. We have obtained patient records from her [place] transfer for the same reason last year and are trying to get in touch with a correspondence analyst from their group to speak to see if they would be likely to interv hermes should we attempt to transfer the patient. Awaiting callback from correspondence analyst on this matter. 08/19-oyster floater problem. also monitored by correspondence analyst in [place]. lung disease makes her not a good candidate for conventional valve replacement. previous eval has it that her valve isn't sufficiently severe to justify transcutaneous approach. (2) Acute exacerbation of CHF (congestive heart failure) Status: Resolved Response to Treatment: Stable Discussed With: Patient, Family with Pt Consent Problem Text: 08/21- Patient likely back to baseline for her CHF. She has dropped about 2 kg since admission and is no longer showing any clinical signs of symptoms of CHF. Will continue her on present lasix dose. 08/20- Patient now on PO lasix as her creatinine was continuing to creep up. She is tolerating the PO lasix well and continues to have good urine output. She no longer has crackles at the base of her left lung. 08/18- Urine output is adequate. Her lungs still have fine crackles on auscultation with peripheral lower extremity edema, but repeat CXR shows their is plate-like atelectasis in the left base and blunting of the left lateral pleural angle. 08/17- Patient admitted with worsening SOB, non-productive cough, bibasilar crackles, orthopnea. Improved overnight with lasix putting out 1550 so far today and feeling much less SOB. Will continue this and monitor her clinically to see how she improves. Obtaining echo today to look for worsening aortic stenosis or possible worsening CHF, I suspect they are inter-related as aortic stenosis could potentially mimic signs and symptoms of systolic CHF. (3) COPD (chronic obstructive pulmonary disease) Status: Chronic Response to Treatment: Stable Discussed With: Patient Problem Specific Plan: Monitor Clinically Problem Text: 08/21- Discontinuing Doxycycline as patient not exhibiting signs or symptoms of pneumonia. Her cough is non-productive and her CXR from several days ago was looking good. Her WBC count is also coming down. We are also weaning her steroids down at this time. 08/20- Sputum culture and gram stain not collected because patient doesn't feel like she can bring anything up. Since she is improving and has already been on Doxy for 3 days I will discontinue this order. 08/18- Patient complaining of vague symptoms and continued cough with yellow sputum production. She states her breathing is fine and is at baseline for her. Obtained repeat imaging to look for new or worsening LLL infiltrate, but no definite infiltrate is seen, their is atelectasis and effusion still present in left lower lobe. Will obtain sputum culture and gram stain to ensure doxycycline is appropriately covering her for an infection. 08/17-Patient on albuterol at home. May not need IV solumedrol, will consider discontinuing today. Patient ok to continue nebs. I do not feel this is a COPD exacerbation, ABG's have been essentially normal and patient is satting in upper 90s on 4 L of her home oxygen. May also consider discontinuing doxycycline, could obtain repeat CXR to rule out although clinically patient does not seem like she has signs or symptoms of pneumonia. (4) Physical deconditioning Status: Acute Problem Text: 08/21- She was not able to participate in PT yesterday, will try again today. 08/20- Physical therapy to evaluate and see patient. (5) Atrial fibrillation Status: Chronic Response to Treatment: Stable Problem Text: 08/20- Continue home meds. 08/18-stable HR controlled, continue home meds 08/17-Continue with eliquis and cardizem (6) Coronary arteriosclerosis Status: Chronic Response to Treatment: Stable Problem Text: 08/18-Continue home medications 08/17-continue asa, statin, and nitroglycerin, prn (7) Iron deficiency anemia Status: Chronic Response to Treatment: Stable, Worse Problem Text: Continue home meds. Hemoglobin mildly decreased, will continue to monitor. She currently has no signs of bleeding and has not complained of orly ck/darkened stool or hemoptysis. (8) Hypothyroidism Status: Chronic Response to Treatment: Stable Problem Text: TSH normal, T4 elevated at 16. Will continue home levothyroxine dose and have patient follow up outpatient for possible adjustment. (9) CKD (chronic kidney disease) stage 3, GFR 30-59 ml/min Status: Chronic Response to Treatment: Stable Problem Text: 08/18- Creatinine at about baseline compared with prior visits. BUN elevated. still making good urine. 08/17-Stable. (10) Diabetes mellitus Status: Chronic Response to Treatment: Stable Problem Text: Continue with sliding scale insulin. (11) JASPAL (obstructive sleep apnea) Status: Chronic Problem Text: Patients ABG showing respiratory alkalosis with elevated PO2. Not sure the last time she followed with pulmonology for an adjustment (12) Hypertension Status: Chronic Response to Treatment: Improving Problem Text: 08/18- Blood pressure improving. 08/17-Continue with patients home meds, may need to increase her home dose of losartan if these continue, will allow continued diuresis to see if her blood pressure is due to fluid overload. Plan/VTE VTE Prophylaxis Ordered?: Yes VS, I&O, 24H, Fishbone Vital Signs/I&O Vital Signs Date Time Temp Pulse Resp B/P (MAP) Pulse Ox O2 Delivery O2 Flow Rate FiO2 08/21/18 11:24 97.1 83 18 152/66 (94) 97 4.0 08/21/18 07:58 Nasal Cannula I&O- Last 24 Hours up to 6 AM 08/21/18 05:59 Intake Total 1600 ml Output Total 1550 ml Balance 50 ml Laboratory Data 24H LABS Laboratory Tests 2 08/20/18 17:12: Bedside Glucose (Misc Panel) 230H 08/20/18 19:54: Bedside Glucose (Misc Panel) 228H 08/21/18 05:23: Nucleated Red Blood Cells % (auto) 0.0, Anion Gap 3L, Glomerular Filtration Rate 38.4, Blood Urea Nitrogen 51H, Creatinine 1.40H, Sodium Level 141, Potassium Level 4.2, Chloride Level 101, Carbon Dioxide Level 37H, Calcium Level 7.9L 08/21/18 11:57: Bedside Glucose (Misc Panel) 217H CBC/BMP Laboratory Tests 08/21/18 05:23 Red Blood Count 3.54 L, Mean Corpuscular Volume 77.1 L, Mean Corpuscular Hemoglobin 22.6 L, Mean Corpuscular Hemoglobin Concent 29.3 L, Red Cell Distribution Width 15.9 H, Calcium Level 7.9 L Microbiology Microbiology 08/16/18 Blood Culture - Preliminary, Resulted No Growth after 72 hours. All specime... 08/16/18 Blood Culture - Preliminary, Resulted No Growth after 72 hours. All specime... 08/21/18 Gram Stain, Received Pending 08/21/18 Sputum Culture, Received Pending 08/16/18 Respiratory Virus Panel (PCR) (CATHY) - Final, Complete GME ATTESTATION GME ATTESTATION My faculty preceptor for this patient encounter was physically present during the encounter and was fully available. All aspects of the patient interview, examination, medical decision making process, and medical care plan development were reviewed and approved by the faculty preceptor. The faculty preceptor is aware and concurs with the plan as stated in the body of this note and will attest to such by his/her cosignature. LEANNA RAMIREZ DO Aug 21, 2018 13:58
[2018-08-21 20:00] VITALS: BP 180/60
[2018-08-21] MEDS: predniSONE 10 MG TAB PO SCH (20:04)
[2018-08-21] MEDS: SENNA 8.6 MG TAB (SENOKOT) PO SCH (20:04)
[2018-08-21] MEDS: LEVEMIR (INSULIN DETEMIR) 1 UNITS/0.01ML SC SCH (20:06)
[2018-08-21] MEDS: ACETAMINOPHEN TAB 650MG DOSE (2X325MG) PO PRN (21:50)
[2018-08-22] MEDS: IPRATROPIUM 0.5MG/ALBUTEROL 2.5MG INH SOL UD 3ML (DUONEB)(J7620) NEB SCH ×7 (00:11→22:45)
[2018-08-22] MEDS: LEVOTHYROXINE 100MCG TABLET (0.1MG) PO SCH (04:51)
[2018-08-22 05:00] LABS: HEMATOCRIT 28.7 % (36.0-47.0); HEMOGLOBIN 8.4 g/dl (12.0-15.5); MEAN CORPUSCULAR HGB CONC 29.3 g/dl (32.0-36.5); MEAN CORPUSCULAR VOLUME 78.6 fl (80.0-96.0); PLATELET COUNT, AUTOMATED 344 10^3/uL (150-450); RED BLOOD COUNT 3.65 10^6/uL (4.00-5.40); WHITE BLOOD COUNT 13.1 10^3/uL (4.0-10.0)
[2018-08-22 05:26] LABS: CALCIUM LEVEL 7.9 MG/DL (8.8-10.2); CREATININE FOR GFR 1.36 MG/DL (0.55-1.30); GLOMERULAR FILTRATION RATE 39.7 (>32); POTASSIUM SERUM 4.5 MEQ/L (3.5-5.1)
[2018-08-22 08:00] VITALS: BP 152/78
[2018-08-22] MEDS: HumaLOG INSULIN (NovoLOG) PER UNIT SC SCH ×3 (08:41→18:52)
[2018-08-22] MEDS: busPIRone 5 MG TAB PO SCH ×3 (08:42→20:10)
[2018-08-22] MEDS: APIXABAN 5 MG TAB (ELIQUIS) PO SCH ×2 (08:42→20:10)
[2018-08-22] MEDS: predniSONE 10 MG TAB PO SCH ×2 (08:42→20:10)
[2018-08-22] MEDS: ASPIRIN 81 MG ENTERIC TAB PO SCH (08:42)
[2018-08-22] MEDS: AMIODARONE 200 MG TAB (PACERONE) PO SCH (08:42)
[2018-08-22] MEDS: ATORVASTATIN 20 MG TAB PO SCH (08:43)
[2018-08-22] MEDS: OMEPRAZOLE 20 MG CAP PO SCH (08:43)
[2018-08-22] MEDS: LOSARTAN 25 MG TAB PO SCH (08:43)
[2018-08-22] MEDS: DOCUSATE SODIUM 100 MG CAP PO SCH (08:43)
[2018-08-22] MEDS: traMADol 50 MG TAB PO SCH ×2 (08:45→20:11)
[2018-08-22] MEDS: diltiaZEM **CD** 180 MG CAP PO SCH (08:45)
[2018-08-22] MEDS: FUROSEMIDE 40 MG TAB PO SCH (08:45)
[2018-08-22] MEDS: ADVAIR HFA 45/21MCG INHALER INH SCH ×2 (11:52→19:51)
--- NOTE | 2018-08-22 13:44 | CR ---
DATE OF CONSULTATION: 08/22/2018 REFERRING PHYSICIAN: Dr. Steel INDICATION: Aortic stenosis, shortness of breath. HISTORY OF PRESENT ILLNESS: Mrs. Calderon is previously unknown to me. She has been followed by Dr. Herring/Dr. Orellana on long-term basis for coronary artery disease, paroxysmal atrial fibrillation, and aortic stenosis. She was admitted to our facility on 08/16/2018 for worsening dyspnea of several days' duration. She described what sounds like paroxysmal nocturnal dyspnea (PND) with her waking up at night sitting on the edge of the bed and also markedly worsened dyspnea during the day. The initial diagnosis was that of congestive heart failure and chronic obstructive pulmonary disease (COPD) exacerbation. She was diuresed and apparently, initially, there was improvement after first day or so, but she feels that since the day about 3 of this admission, her condition actually deteriorated. At this point, she still gets short of breath with minimal activity. Denies any chest pain. Has not had any PND last night. PAST MEDICAL HISTORY: 1. Coronary artery disease, status post remote intervention to [facility]. 2. Known aortic stenosis. She had an echocardiogram exactly year ago in our facility that prompted transfer to [facility] for consideration of aortic valve replacement. The echocardiogram was repeated at [facility] ([facility]), and it was felt that the aortic stenosis was only moderate. Dr. Norton was nice enough to obtain records from [facility], and the echocardiogram then revealed mean gradient across aortic valve 23 mmHg, there was moderately severe pulmonary hypertension, and no significant mitral valvular disease. Systolic function was preserved. 2. COPD. Patient is on home oxygen. She reports a remote history of smoking but quit more than 20 years ago. She is followed by Dr. Bermeo. 3. Dyslipidemia. 4. Gastroesophageal reflux disease (GERD). 5. Hypothyroidism. 6. History of obstructive sleep apnea without continuous positive airway pressure (CPAP) use. 7. Hypertension. PAST SURGICAL HISTORY: Cholecystectomy, hysterectomy, appendectomy, cataract surgery, breast biopsy, and several cardiac catheterizations. She reports numerous ALLERGIES and those include ANGIOTENSIN-CONVERTING ENZYME (MYA) INHIBITORS, NONSTEROIDAL ANTI-INFLAMMATORY DRUGS (NSAIDS), PENICILLIN, SPIRONOLACTONE, SULFA, and SULFA CROSS REACTORS. HOME MEDICATIONS: - Albuterol sulfate - amiodarone 200 mg a day - Anoro Ellipta - apixaban 5 mg twice a day - aspirin 81 mg a day - atorvastatin 40 mg a day - buspirone 10 mg three times a day - diltiazem 180 mg a day - iron sulfate twice a day 160 mg - furosemide 20 mg a day - Mucinex - insulin - levothyroxine 100 mcg a day - losartan 25 mg a day - meclizine as needed for dizziness - nitroglycerin as needed for chest pain - omeprazole 20 mg a day - senna - tramadol 50 mg twice a day as needed for pain - vitamins SOCIAL HISTORY: Patient is a . She lives alone. Her daughter lives about 20 miles from her and is actively involved. She does get help in the form of a cleaning lady. She used to smoke but quit more than 20 years ago. There is no alcohol use. FAMILY HISTORY: No longer relevant. On the review of systems, she denies any recent fever, chills, nausea, or vomiting. She denies any change in her weight. She does report PND and orthopnea. No chest discomfort. She has had cough, mostly nonproductive. There is occasional wheezing. No abdominal pain. She does not recall any recent history of bleeding even though there is a remote history of gastrointestinal (GI) bleed that prompted fairly extensive evaluation. She did not notice much of peripheral edema. PHYSICAL EXAMINATION: Mrs. Calderon is an elderly female. She he is sitting in a recliner. She is able to speak in full sentences and has pursed-lip type of breathing. She is receiving oxygen by nasal cannula 4 liters per minute. Blood pressure 152/78, heart rate has been mostly 50s and 60s, sinus rhythm. She is afebrile. Her weight has been documented at 78.6 kg, which is about 2 kg down since admission. Fluid balance yesterday was slightly negative, it was 250, but was more negative in first few days. She is alert and oriented and appropriate. It is difficult to adult school teacher her JVP, but it does not appear grossly elevated by my exam. Lungs: Reveal occasional fine crackles and wheeze. Fair air movement. Heart exam is obscured by lung sounds, but when she holds her breath there is clearly apparent systolic ejection murmur over the aortic valve about 3 or 4 out of 6 intensity. The closing sound is preserved. I do not appreciate any gallop. Abdomen is soft, nontender. There is no peripheral edema. Peripheral pulses are palpable even though not of good quality. No skin lesions. Neurologically, she is intact. LABORATORY WEBSTER: Basic metabolic panel today: Sodium 141, potassium 4.5, BUN 49, creatinine 1.4, glucose 187. CBC: WBC count 13,000, hemoglobin 8.4, hematocrit 28.7, platelet count 344,000. INR was 1.4. Influenza testing was cancelled. She had a chest x-ray that reveals borderline cardiomegaly, no convincing congestive heart failure to my review. An electrocardiogram reveals presence of sinus rhythm with right bundle branch block and first-degree arteriovenous (AV) block. There are some minimal nonspecific repolarization abnormalities otherwise. Two ECGs are not appreciably changed from each other. She had an echocardiogram that was interpreted by Dr. Orellana, and I also reviewed it independently. It reveals preserved left ventricular systolic function. There is aortic stenosis. The mean gradient across the valve was 30 mmHg, and the calculated aortic valve area was low at 0.7 sq cm, dimensionless index was 0.23. There was at least moderate pulmonary hypertension. ASSESSMENT AND PLAN: Mrs. Calderon is an elderly lady who has underlying chronic obstructive pulmonary disease (COPD), coronary artery disease, and paroxysmal atrial fibrillation. She presented with worsening shortness of breath that clinically had some features of congestive heart failure, namely, there was a component of paroxysmal nocturnal dyspnea. But there was no clear-cut volume overloaded state even though talking to Dr. Norton, she had some degree of edema to start with which has since improved. The shoemaker question is whether her aortic stenosis is severe enough to explain her symptoms. I have to say that I am not convinced. First of all and most importantly, the gradient is relatively low in setting of preserved left ventricular systolic function and concomitant fairly severe anemia. I would expect that if she truly had severe aortic stenosis that the gradient would be much higher. But yet I acknowledge that to make this diagnosis accurately is sometimes difficult. I recommend to obtain her records from pulmonary, so we have an idea about her underlying lung function, not only from the perspective of COPD but also from the perspective of chronic amiodarone use. I would also suggest that we focus on anemia because she certainly will not tolerate anemia well. I do think that she very likely has ongoing severe iron deficiency and may need intravenous iron for correction because the oral supplementation apparently has not been able to correct the problem. Will follow the patient with you, and Dr. Herring will take care over her situation on Friday. Ultimately, the decision about transfer will be up to him. My first impression is that it is not likely that her aortic stenosis is the culprit. CASE
--- NOTE | 2018-08-22 14:25 | IPNPDOC ---
Subjective Date Seen The patient was seen on 08/22/18. Subjective Chief Complaint/HPI Patient seen and examined at bedside this AM following PT. She was able to go 50 ft with desaturation to 90% on 4L. She is currently complaining of dyspnea and wheezing. Objective Physical Examination General Exam: Positive: Alert, Cooperative, No Acute Distress Eye Exam: Positive: EOMI; Negative: Sclera icteric ENT Exam: Positive: Atraumatic, Mucous membr. moist/pink, Pharynx Normal (No pharyngeal erythema or exudate), Tongue Midline, Nares Patent; Negative: Pharyngeal Edema Neck Exam: Negative: JVD Chest Exam: Positive: Clear to auscultation, Rhonchi (expiratory rhonchi), Wheezing (wheezing throughout lung skinner. ), Diminished (bilaterally); Negative: Rales Heart Exam: Positive: Rate Normal, Normal S1, Normal S2, Murmurs (Soft systolic murmur best heard at LUSB) Abdomen Exam: Positive: Normal bowel sounds, Soft; Negative: Tenderness, Hepatospenomegaly Extremity Exam: Positive: Edema (1+ pitting edema in bilateral lower ex tremities. ); Negative: Clubbing, Cyanosis Skin Exam: Positive: Nl turgor and temperature Neuro Exam: Positive: Normal Speech Psych Exam: Positive: Mental status NL, Mood NL Assessment /Plan Problems (1) COPD (chronic obstructive pulmonary disease) Status: Chronic Response to Treatment: Stable Discussed With: Patient Problem Specific Plan: Monitor Clinically Problem Text: 08/22- Patient's wheezing has persisted the last 2 days and in an effort to try and maximize her we will try starting her on an advair inhaler to see if that helps with her breathing. 08/21- Discontinuing Doxycycline as patient not exhibiting signs or symptoms of pneumonia. Her cough is non-productive and her CXR from several days ago was looking good. Her WBC count is also coming down. We are also weaning her steroids down at this time. 08/20- Sputum culture and gram stain not collected because patient doesn't feel like she can bring anything up. Since she is improving and has already been on Doxy for 3 days I will discontinue this order. 08/18- Patient complaining of vague symptoms and continued cough with yellow sputum production. She states her breathing is fine and is at baseline for her. Obtained repeat imaging to look for new or worsening LLL infiltrate, but no definite infiltrate is seen, their is atelectasis and effusion still present in left lower lobe. Will obtain sputum culture and gram stain to ensure doxycycline is appropriately covering her for an infection. 08/17-Patient on albuterol at home. May not need IV solumedrol, will consider discontinuing today. Patient ok to continue nebs. I do not feel this is a COPD exacerbation, ABG's have been essentially normal and patient is satting in upper 90s on 4 L of her home oxygen. May also consider discontinuing doxycycline, could obtain repeat CXR to rule out although clinically patient does not seem like she has signs or symptoms of pneumonia. (2) Aortic stenosis, severe Status: Chronic Problem Text: 08/22- Per Dr. Zuniga, he is not convinced this is the likely culpirate we will try to maximize other causes of dyspnea such as anemia and COPD to see if her dyspnea improves. Dr. Steel spoke with cardiology at [facility] who felt she likely would not be a candidate for surgical repair as she currently is not meeting criteria for it. 08/21- Echo results are back and demonstrate moderate stenosis by mean aortic valve gradient and peak aortic velocity and severe aortic stenosis by dimensionless index and aortic valve area. At this time I don't feel their are better explanations for her worsening dyspnea during admission. Cardiology has been consulted and they are recommending transfer to [facility] for surgical repair of her stenosis. We have obtained patient records from her [facility] transfer for the same reason last year and are trying to get in touch with a icing mixer from their group to speak to see if they would be likely to inter vene should we attempt to transfer the patient. Awaiting callback from icing mixer on this matter. 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 also monitored by icing mixer in [place]. lung disease makes her not a good candidate for conventional valve replacement. previous eval has it that her valve isn't sufficiently severe to justify transcutaneous approach. (3) Iron deficiency anemia Status: Chronic Response to Treatment: Stable, Worse Problem Text: 08/22- While her Hgb is low we will obtain iron studies to see if we can do anything to get her level back to baseline. This could also be a component of her SOB. Continue home meds. Hemoglobin mildly decreased, will continue to monitor. She currently has no signs of bleeding and has not complained of black/darkened stool or hemoptysis. (4) Acute exacerbation of CHF (congestive heart failure) Status: Resolved Response to Treatment: Stable Discussed With: Patient, Family with Pt Consent Problem Text: 08/22- Back at baseline. 08/21- Patient likely back to baseline for her CHF. She has dropped about 2 kg since admission and is no longer showing any clinical signs of symptoms of CHF. Will continue her on present lasix dose. 08/20- Patient now on PO lasix as her creatinine was continuing to creep up. She is tolerating the PO lasix well and continues to have good urine output. She no longer has crackles at the base of her left lung. 08/18- Urine output is adequate. Her lungs still have fine crackles on auscultation with peripheral lower extremity edema, but repeat CXR shows their is plate-like atelectasis in the left base and blunting of the left lateral pleural angle. 08/17- Patient admitted with worsening SOB, non-productive cough, bibasilar cr ackles, orthopnea. Improved overnight with lasix putting out 1550 so far today and feeling much less SOB. Will continue this and monitor her clinically to see how she improves. Obtaining echo today to look for worsening aortic stenosis or possible worsening CHF, I suspect they are inter-related as aortic stenosis could potentially mimic signs and symptoms of systolic CHF. (5) Physical deconditioning Status: Acute Problem Text: 08/22- She continues to work with PT and did well today. 08/21- She was not able to participate in PT yesterday, will try again today. 08/20- Physical therapy to evaluate and see patient. (6) Atrial fibrillation Status: Chronic Response to Treatment: Stable Problem Text: 08/20- Continue home meds. 08/18-stable HR controlled, continue home meds 08/17-Continue with eliquis and cardizem (7) Coronary arteriosclerosis Status: Chronic Response to Treatment: Stable Problem Text: 08/18-Continue home medications 08/17-continue asa, statin, and nitroglycerin, prn (8) Hypothyroidism Status: Chronic Response to Treatment: Stable Problem Text: TSH normal, T4 elevated at 16. Will continue home levothyroxine dose and have patient follow up outpatient for possible adjustment. (9) CKD (chronic kidney disease) stage 3, GFR 30-59 ml/min Status: Chronic Response to Treatment: Stable Problem Text: 08/18- Creatinine at about baseline compared with prior visits. BUN elevated. still making good urine. 08/17-Stable. (10) Diabetes mellitus Status: Chronic Response to Treatment: Stable Problem Text: Continue with sliding scale insulin. (11) JASPAL (obstructive sleep apnea) Status: Chronic Problem Text: Patients ABG showing respiratory alkalosis with elevated PO2. Not sure the last time she followed with pulmonology for an adjustment (12) Hypertension Status: Chronic Response to Treatment: Improving Problem Text: 08/18- Blood pressure improving. 08/17-Continue with patients home meds, may need to increase her home dose of losartan if these continue, will allow continued diuresis to see if her blood pressure is due to fluid overload. Plan/VTE VTE Prophylaxis Ordered?: Yes VS, I&O, 24H, Fishbone Vital Signs/I&O Vital Signs Date Time Temp Pulse Resp B/P (MAP) Pulse Ox O2 Delivery O2 Flow Rate FiO2 08/22/18 08:45 22 4.0 08/22/18 08:45 60 152/78 08/22/18 08:00 96.9 99 08/21/18 19:41 Nasal Cannula I&O- Last 24 Hours up to 6 AM 08/22/18 06:00 Intake Total 1260 ml Output Total 1600 ml Balance -340 ml Laboratory Data 24H LABS Laboratory Tests 2 08/21/18 17:02: Bedside Glucose (Misc Panel) 286H 08/22/18 04:47: Nucleated Red Blood Cells % (auto) 0.0, Anion Gap 4L, Glomerular Filtration Rate 39.7, Blood Urea Nitrogen 49H, Creatinine 1.36H, Sodium Level 141, Potassium Level 4.5, Chloride Level 100, Carbon Dioxide Level 37H, Calcium Level 7.9L 08/22/18 12:15: Bedside Glucose (Misc Panel) 294H CBC/BMP Laboratory Tests 08/22/18 04:47 Red Blood Count 3.65 L, Mean Corpuscular Volume 78.6 L, Mean Corpuscular Hemoglobin 23.0 L, Mean Corpuscular Hemoglobin Concent 29.3 L, Red Cell Distribution Width 15.7 H, Calcium Level 7.9 L Microbiology Microbiology 08/16/18 Blood Culture - Final, Complete NO GROWTH AFTER 5 DAYS 08/16/18 Blood Culture - Final, Complete NO GROWTH AFTER 5 DAYS 08/16/18 Respiratory Virus Panel (PCR) ([facility]) - Final, Complete GME ATTESTATION GME ATTESTATION My faculty preceptor for this patient encounter was physically present during the encounter and was fully available. All aspects of the patient interview, examination, medical decision making process, and medical care plan development were reviewed and approved by the faculty preceptor. The faculty preceptor is aware and concurs with the plan as stated in the body of this note and will attest to such by his/her cosignature. ATTENDING NOTE Patient was seen and examined by the attending physician. I spoke with Dr. Cross from [facility] this a.m. He does not feel her situation warrants intervention re her aortic valve. Will ask our local icing mixer to see her and weigh in. The case was reviewed with the PGY-1. LEANNA RAMIREZ DO Aug 22, 2018 14:25 Paresh Steel M.D. Aug 23, 2018 10:32
[2018-08-22 16:00] VITALS: BP 155/84
[2018-08-22 19:39] VITALS: BP 180/60
[2018-08-22] MEDS ORDERED: LOSARTAN 25 MG TAB PO ONE (20:00)
[2018-08-22] MEDS: SENNA 8.6 MG TAB (SENOKOT) PO SCH (20:10)
[2018-08-22] MEDS: LEVEMIR (INSULIN DETEMIR) 1 UNITS/0.01ML SC SCH (20:11)
[2018-08-22 22:00] VITALS: BP 157/68
[2018-08-23] MEDS: IPRATROPIUM 0.5MG/ALBUTEROL 2.5MG INH SOL UD 3ML (DUONEB)(J7620) NEB SCH ×5 (00:25→18:41)
[2018-08-23] MEDS: LEVOTHYROXINE 100MCG TABLET (0.1MG) PO SCH (05:18)
[2018-08-23 06:00] VITALS: BP 162/64
[2018-08-23 06:46] LABS: HEMATOCRIT 27.6 % (36.0-47.0); MEAN CORPUSCULAR HEMOGLOBIN 22.7 pg (27.0-33.0); MEAN CORPUSCULAR VOLUME 78.2 fl (80.0-96.0); PLATELET COUNT, AUTOMATED 343 10^3/uL (150-450); RED BLOOD COUNT 3.53 10^6/uL (4.00-5.40); WHITE BLOOD COUNT 13.4 10^3/uL (4.0-10.0)
[2018-08-23 06:59] LABS: CREATININE FOR GFR 1.39 MG/DL (0.55-1.30); GLOMERULAR FILTRATION RATE 38.7 (>32); PERCENT SATURATION 5.3 % (13.2-45.0); POTASSIUM SERUM 4.6 MEQ/L (3.5-5.1)
[2018-08-23] MEDS: ADVAIR HFA 45/21MCG INHALER INH SCH ×2 (08:10→19:53)
[2018-08-23] MEDS: ASPIRIN 81 MG ENTERIC TAB PO SCH (08:40)
[2018-08-23] MEDS: OMEPRAZOLE 20 MG CAP PO SCH (08:40)
[2018-08-23] MEDS: predniSONE 10 MG TAB PO SCH (08:40)
[2018-08-23] MEDS: APIXABAN 5 MG TAB (ELIQUIS) PO SCH ×2 (08:40→21:33)
[2018-08-23] MEDS: FERROUS SULFATE 325MG TAB PO SCH (08:40)
[2018-08-23] MEDS: FUROSEMIDE 40 MG TAB PO SCH (08:41)
[2018-08-23] MEDS: ATORVASTATIN 20 MG TAB PO SCH (08:41)
[2018-08-23] MEDS: busPIRone 5 MG TAB PO SCH ×3 (08:41→21:32)
[2018-08-23] MEDS: diltiaZEM **CD** 180 MG CAP PO SCH (08:42)
[2018-08-23] MEDS: LOSARTAN 25 MG TAB PO SCH (08:42)
[2018-08-23] MEDS: AMIODARONE 200 MG TAB (PACERONE) PO SCH (08:42)
[2018-08-23] MEDS: traMADol 50 MG TAB PO SCH ×2 (08:43→21:33)
[2018-08-23] MEDS: HumaLOG INSULIN (NovoLOG) PER UNIT SC SCH ×3 (08:58→17:59)
--- NOTE | 2018-08-23 11:23 | IPN ---
DATE: 08/23/2018 Mrs. Calderon tells me that she is feeling about the same; certainly there has not been an improvement since yesterday, but she does not feel worse either. She was on and off sleeping throughout the night, was short of breath intermittently but it does not look that it woke her up from sleep. Denies any chest discomfort. Vital signs: This morning, blood pressure was high at 170/60, heart rate has been in 60s and 70s. She is afebrile. Saturation is 98% on 4 liters of oxygen. Fluid balance yesterday was documented negative 700. The weight has not been documented this morning as yet. She is alert and oriented and appropriate. Her jugular venous pressure (JVP) is difficult to grape pruner with concomitant chronic obstructive pulmonary disease (COPD), but looks about 2 or 3 cm above clavicle. Lungs are reasonably clear to auscultation without wheezing, crackles or rhonchi. Heart: Exam reveals regular rhythm. There is a harsh murmur best heard over the aortic valve area radiating to carotid arteries, approximately 3 or 4 out of 6 intensity. Closing sound is still well preserved. Abdomen is soft, nontender. There is no apparent peripheral edema. Neurologically she is intact. LABORATORY: Sodium 141, potassium 4.6, BUN 53, creatinine 1.4 and glucose 219, and terminal pro-BNP is 3100. CBC: Hemoglobin 8, hematocrit 27.6 and platelet count 343,000. ASSESSMENT/PLAN: Mrs. Calderon is an 83-year-old female who has chronic coronary artery disease, aortic stenosis that is felt to be approximately moderately severe, and chronic dyspnea. From yesterday, not much has changed. It remains my opinion that her aortic stenosis is still not severe. But there are several things that I think could bring some light into her situation. First of all, I am still waiting for results of pulmonary function test, and they should be able to be obtained tomorrow. The second issue that is potentially correctable is anemia. She is very iron deficient, and I recommend that she gets IV iron because oral supplementation has not been successfully correcting her problem. I suspect that she has been retaining some fluid lately due to her steroids, and I am going to temporarily increase the dose of furosemide to 80 mg twice a day[address] Dr. Herring will take over her cardiac care starting tomorrow morning. CASE
[2018-08-23] MEDS: DOCUSATE SODIUM 100 MG CAP PO SCH (12:43)
[2018-08-23 14:00] VITALS: BP 140/60
[2018-08-23] MEDS: FUROSEMIDE 100 MG/10 ML VIAL (J1940) IV SCH (17:53)
[2018-08-23] MEDS: LEVEMIR (INSULIN DETEMIR) 1 UNITS/0.01ML SC SCH (21:32)
[2018-08-23] MEDS: SENNA 8.6 MG TAB (SENOKOT) PO SCH (21:33)
[2018-08-23 22:00] VITALS: BP 160/60
[2018-08-24] MEDS: IPRATROPIUM 0.5MG/ALBUTEROL 2.5MG INH SOL UD 3ML (DUONEB)(J7620) NEB SCH ×6 (00:51→20:00)
[2018-08-24] MEDS: LEVOTHYROXINE 100MCG TABLET (0.1MG) PO SCH (05:39)
[2018-08-24 06:00] VITALS: BP 158/62
[2018-08-24] MEDS: HumaLOG INSULIN (NovoLOG) PER UNIT SC SCH ×3 (08:36→17:30)
[2018-08-24] MEDS: DOCUSATE SODIUM 100 MG CAP PO SCH (08:36)
[2018-08-24] MEDS: ASPIRIN 81 MG ENTERIC TAB PO SCH (08:37)
[2018-08-24] MEDS: APIXABAN 5 MG TAB (ELIQUIS) PO SCH ×2 (08:37→20:26)
[2018-08-24] MEDS: predniSONE 10 MG TAB PO SCH (08:37)
[2018-08-24] MEDS: ATORVASTATIN 20 MG TAB PO SCH (08:37)
[2018-08-24] MEDS: busPIRone 5 MG TAB PO SCH ×3 (08:37→20:26)
[2018-08-24] MEDS: diltiaZEM **CD** 180 MG CAP PO SCH (08:38)
[2018-08-24] MEDS: LOSARTAN 25 MG TAB PO SCH (08:38)
[2018-08-24] MEDS: OMEPRAZOLE 20 MG CAP PO SCH (08:38)
[2018-08-24] MEDS: traMADol 50 MG TAB PO SCH ×2 (08:38→20:28)
[2018-08-24] MEDS: AMIODARONE 200 MG TAB (PACERONE) PO SCH (08:38)
[2018-08-24] MEDS: FUROSEMIDE 100 MG/10 ML VIAL (J1940) IV SCH ×2 (08:39→17:10)
[2018-08-24] MEDS ORDERED: ONDANSETRON 4MG/2ML VIAL (J2405) IV ONE (08:45)
[2018-08-24 10:12] LABS: HEMATOCRIT 30.6 % (36.0-47.0); HEMOGLOBIN 8.8 g/dl (12.0-15.5); MEAN CORPUSCULAR HEMOGLOBIN 22.6 pg (27.0-33.0); MEAN CORPUSCULAR HGB CONC 28.8 g/dl (32.0-36.5); MEAN CORPUSCULAR VOLUME 78.5 fl (80.0-96.0); PLATELET COUNT, AUTOMATED 374 10^3/uL (150-450); WHITE BLOOD COUNT 19.3 10^3/uL (4.0-10.0)
[2018-08-24] MEDS: ADVAIR HFA 45/21MCG INHALER INH SCH ×2 (10:24→21:09)
[2018-08-24 10:28] LABS: CALCIUM LEVEL 8.3 MG/DL (8.8-10.2); CREATININE FOR GFR 1.6 MG/DL (0.55-1.30); GLOMERULAR FILTRATION RATE 32.9 (>32); POTASSIUM SERUM 4.1 MEQ/L (3.5-5.1)
--- NOTE | 2018-08-24 11:58 | IPN ---
DATE: 08/23/2018 The patient is seen today on [address]. She was seen yesterday by Dr. Zuniga, whom I spoke to today, and he ordered some additional furosemide for her. We also put her on some Advair. She feels today that her breathing is back to baseline, although her daughter points out that she is still dyspneic on exertion and with what she has seen today. when she is up out of bed, does not think that she would be able to manage at home quite yet. The patient denies any cough or her phlegm production. No chest discomfort or palpitations. Is not having any edema. Current medications: Furosemide she is getting IV twice a day, Advair HFA, prednisone at a dose of 30 mg twice a day, Colace 100 mg daily, MiraLAX one packet as needed, aspirin 81 mg daily, atorvastatin 40 mg daily, diltiazem 180 mg daily, Cozaar 25 mg daily, omeprazole 20 mg daily, amiodarone 200 mg daily, ferrous sulfate 325 mg every other day. She gets sliding-scale insulin, 100 mcg of Synthroid daily. Nebulizers scheduled every 4 hours with DuoNebs, guaifenesin twice a day as needed, Antivert as needed. She has as needed medication for hypoglycemia. She is on Eliquis, BuSpar, Levemir, senna and twice daily tramadol. On examination, her temperature is 97.1, blood pressure is 162/64, pulse is 61 and seems quite regular today, respirations are 19. She has 98% oximetry on 4 liters. She is alert and oriented, cooperative, not all in any distress. Her eyes are clear. Speech is clear. There is no neck masses, tenderness or adenopathy. No carotid bruits. Her lungs have diminished breath sounds but sound quite clear. Heart is distant. Sounds quite regular today without any murmur, click or gallop. Abdomen is soft and nontender. There is no edema. Labs today show hemoglobin of 8.0, which it was two days ago. She has been hovering between 8.0 and 8.4. Her MCV 78.2. Her BUN is 53, creatinine 1.39. Sodium 141, potassium 4.6, glucose this morning was 219. Her serum iron is 20, iron binding was 376, BNP was 3096. ASSESSMENT: Dyspnea, multifactorial. There are elements of chronic obstructive pulmonary disease (COPD), elements of congestive heart failure, atrial fibrillation and chronic anemia affecting her breathing and we are addressing all of these. She is also diabetic and has some chronic renal insufficiency. PLAN: Patient will continue on her current management. I have not made any changes. She will be getting labs again in the morning. I did speak with Dr. Zuniga again today and he reiterated that he did not think that her aortic stenosis was such that she was, at this time, a candidate for an aortic valve procedure. He wondered whether she might benefit from an iron infusion given that attempts to give her oral iron have not been helpful in the past. I am going to defer to my colleagues tomorrow regarding that as I do not feel comfortable with doing an iron infusion on the weekend. I will ask her regular curriculum coordinator to come and weigh-in tomorrow. I did put the idea the patient and her daughter's heads regarding short-term rehabilitation as an interim step before going home.
[2018-08-24 14:00] VITALS: BP 148/68
--- NOTE | 2018-08-24 15:11 | REP ---
Chest one-view HISTORY: Dyspnea Comparison: 08/18/2018 Linear densities are present in the lower lobes consistent with atelectasis. The cardiac silhouette is enlarged. The heart is normal in size. The pulmonary vasculature is normal in appearance. Impression: 1. Bibasilar atelectasis. 2. Cardiomegaly. Electronically Signed by Jose Burnette MD 08/24/2018 03:02 P
--- NOTE | 2018-08-24 15:34 | IPNPDOC ---
Subjective Date Seen The patient was seen on 08/24/18. Subjective Chief Complaint/HPI No acute events overnight. Patient is feeling nauseated this morning. Improved with Zofran. When she was seen in the afternoon she was complaining of her stomach being upset after lunch. She denies any current nausea, abdominal pain, chest pain, or worsening dyspnea. Objective Physical Examination General Exam: Positive: Alert, Cooperative, No Acute Distress Eye Exam: Positive: EOMI; Negative: Sclera icteric ENT Exam: Positive: Atraumatic, Mucous membr. moist/pink, Pharynx Normal (No pharyngeal erythema or exudate), Tongue Midline, Nares Patent; Negative: Pharyngeal Edema Neck Exam: Negative: JVD Chest Exam: Positive: Clear to auscultation, Diminished (bilaterally); Negative: Rales, Rhonchi, Wheezing Heart Exam: Positive: Rate Normal, Normal S1, Normal S2, Murmurs (Soft systolic murmur best heard at LUSB) Abdomen Exam: Positive: Normal bowel sounds, Soft; Negative: Tenderness, Hepatospenomegaly Extremity Exam: Positive: Edema (1+ pitting edema in bilateral lower extremities. ); Negative: Clubbing, Cyanosis Skin Exam: Positive: Nl turgor and temperature Neuro Exam: Positive: Normal Speech Psych Exam: Positive: Mental status NL, Mood NL Assessment /Plan Problems (1) Aortic stenosis, severe Status: Chronic Problem Text: 08/24- Patient was seen by Dr. Zuniga over the weekend who did not feel her dyspnea was primarily related to her aortic stenosis. He held her amiodarone and ordered serum iron studies as her hgb was low, it is beginning to recover since she has been on PO iron supplementation, though she may require IV down the road. Dr. Herring is her accounts receivable processor and will be in to see her some time today to weigh in on her stenosis. Dr. Steel spoke with cardiology at [place] and at this time, they would likely not do anything surgically to correct stenosis as she would likely not meet the criteria for repair. 08/22- Per Dr. Zuniga, he is not convinced this is the likely culpirate we will try to maximize other causes of dyspnea such as anemia and COPD to see if her dyspnea improves. Dr. Steel spoke with cardiology at [facility] [facility] who felt she likely would not be a candidate for surgical repair as she currently is not meeting criteria for it. 08/21- Echo results are back and demonstrate moderate stenosis by mean aortic valve gradient and peak aortic velocity and severe aortic stenosis by dimensionless index and aortic valve area. At this time I don't feel their are better explanations for her worsening dyspnea during admission. Cardiology has been consulted and they are recommending transfer to [facility] [facility] for surgical repair of her stenosis. We have obtained patient records from her [facility] [facility] transfer for the same reason last year and are trying to get in touch with a accounts receivable processor from their group to speak to see if they would be likely to intervene should we attempt to transfer the patient. Awaiting callback from accounts receivable processor on this matter. 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 lung disease makes her not a good candidate for conventional valve replacement. previous eval has it that her valve isn't sufficiently severe to justify transcutaneous approach. (2) COPD (chronic obstructive pulmonary disease) Status: Chronic Response to Treatment: Stable Discussed With: Patient Problem Specific Plan: Monitor Clinically Problem Text: 08/24- Patient started on advair on Friday for her dyspnea. Notes no worsening dyspnea today. 08/22- Patient's wheezing has persisted the last 2 days and in an effort to try and maximize her we will try starting her on an advair inhaler to see if that helps with her breathing. 08/21- Discontinuing Doxycycline as patient not exhibiting signs or symptoms of pneumonia. Her cough is non-productive and her CXR from several days ago was looking good. Her WBC count is also coming down. We are also weaning her steroids down at this time. 08/20- Sputum culture and gram stain not collected because patient doesn't feel like she can bring anything up. Since she is improving and has already been on Doxy for 3 days I will discontinue this order. 08/18- Patient complaining of vague symptoms and continued cough with yellow sputum production. She states her breathing is fine and is at baseline for her. Obtained repeat imaging to look for new or worsening LLL infiltrate, but no definite infiltrate is seen, their is atelectasis and effusion still present in left lower lobe. Will obtain sputum culture and gram stain to ensure doxycycline is appropriately covering her for an infection. 08/17-Patient on albuterol at home. May not need IV solumedrol, will consider discontinuing today. Patient ok to continue nebs. I do not feel this is a COPD exacerbation, ABG's have been essentially normal and patient is satting in upper 90s on 4 L of her home oxygen. May also consider discontinuing doxycycline, could obtain repeat CXR to rule out although clinically patient does not seem like she has signs or symptoms of pneumonia. (3) Iron deficiency anemia Status: Chronic Response to Treatment: Stable, Worse Problem Text: 08/24- Her anemia is mildly improved since she has been on iron supplementation. Continue home meds. Hemoglobin mildly decreased, will continue to monitor. She currently has no signs of bleeding and has not complained of black/darkened stool or hemoptysis. (4) Physical deconditioning Status: Chronic Problem Text: 08/24- She continues to work with PT 08/21- She was not able to participate in PT yesterday, will try again today. 08/20- Physical therapy to evaluate and see patient. (5) Acute exacerbation of CHF (congestive heart failure) Status: Resolved Response to Treatment: Stable Discussed With: Patient, Family with Pt Consent Problem Text: 08/21- Patient likely back to baseline for her CHF. She has dropped about 2 kg since admission and is no longer showing any clinical signs of symptoms of CHF. Will continue her on present lasix dose. 08/20- Patient now on PO lasix as her creatinine was continuing to creep up. She is tolerating the PO lasix well and continues to have good urine output. She no longer has crackles at the base of her left lung. 08/18- Urine output is adequate. Her lungs still have fine crackles on auscultation with peripheral lower extremity edema, but repeat CXR shows their is plate-like atelectasis in the left base and blunting of the left lateral pleural angle. 08/17- Patient admitted with worsening SOB, non-productive cough, bibasilar crackles, orthopnea. Improved overnight with lasix putting out 1550 so far today and feeling much less SOB. Will continue this and monitor her clinically to see how she improves. Obtaining echo today to look for worsening aortic stenosis or possible worsening CHF, I suspect they are inter-related as aortic stenosis could potentially mimic signs and symptoms of systolic CHF. (6) Atrial fibrillation Status: Chronic Response to Treatment: Stable Problem Text: 08/20- Continue home meds. 08/18-stable HR controlled, continue home meds 08/17-Continue with eliquis and cardizem (7) Coronary arteriosclerosis Status: Chronic Response to Treatment: Stable Problem Text: 08/18-Continue home medications 08/17-continue asa, statin, and nitroglycerin, prn (8) Hypothyroidism Status: Chronic Response to Treatment: Stable Problem Text: TSH normal, T4 elevated at 16. Will continue home levothyroxine dose and have patient follow up outpatient for possible adjustment. (9) CKD (chronic kidney disease) stage 3, GFR 30-59 ml/min Status: Chronic Response to Treatment: Stable Problem Text: 08/18- Creatinine at about baseline compared with prior visits. BUN elevated. still making good urine. 08/17-Stable. (10) Diabetes mellitus Status: Chronic Response to Treatment: Stable Problem Text: Continue with sliding scale insulin. (11) JASPAL (obstructive sleep apnea) Status: Chronic Problem Text: Patients ABG showing respiratory alkalosis with elevated PO2. Not sure the last time she followed with pulmonology for an adjustment (12) Hypertension Status: Chronic Response to Treatment: Improving Problem Text: 08/18- Blood pressure improving. 08/17-Continue with patients home meds, may need to increase her home dose of losartan if these continue, will allow continued diuresis to see if her blood pressure is due to fluid overload. Plan/VTE VTE Prophylaxis Ordered?: Yes VS, I&O, 24H, Fishbone Vital Signs/I&O Vital Signs Date Time Temp Pulse Resp B/P (MAP) Pulse Ox O2 Delivery O2 Flow Rate FiO2 08/24/18 08:38 158/62 08/24/18 08:38 97 08/24/18 08:00 4.0 08/24/18 06:00 96.8 18 98 08/21/18 19:41 Nasal Cannula I&O- Last 24 Hours up to 6 AM 08/24/18 06:00 Intake Total 2160 ml Output Total 0 ml Balance 2160 ml Laboratory Data 24H LABS Laboratory Tests 2 08/23/18 17:02: Bedside Glucose (Misc Panel) 331H 08/23/18 20:51: Bedside Glucose (Misc Panel) 343H 08/24/18 06:05: Bedside Glucose (Misc Panel) 114H 08/24/18 09:37: Nucleated Red Blood Cells % (auto) 0.1H, Anion Gap 4L, Glomerular Filtration Rate 32.9, Blood Urea Nitrogen 45H, Creatinine 1.60H, Sodium Level 140, Potassium Level 4.1, Chloride Level 96L, Carbon Dioxide Level 40H, Calcium Level 8.3L 08/24/18 11:48: Bedside Glucose (Misc Panel) 250H CBC/BMP Laboratory Tests 08/24/18 09:37 Red Blood Count 3.90 L, Mean Corpuscular Volume 78.5 L, Mean Corpuscular Hemoglobin 22.6 L, Mean Corpuscular Hemoglobin Concent 28.8 L, Red Cell Distribution Width 16.3 H, Calcium Level 8.3 L Microbiology Microbiology 08/16/18 Blood Culture - Final, Complete NO GROWTH AFTER 5 DAYS 08/16/18 Blood Culture - Final, Complete NO GROWTH AFTER 5 DAYS 08/16/18 Respiratory Virus Panel (PCR) ([facility]ATH[facility]) - Final, Complete GME ATTESTATION GME ATTESTATION My faculty preceptor for this patient encounter was physically present during the encounter and was fully available. All aspects of the patient interview, examination, medical decision making process, and medical care plan development were reviewed and approved by the faculty preceptor. The faculty preceptor is aware and concurs with the plan as stated in the body of this note and will attest to such by his/her cosignature. ATTENDING NOTE Agree with resident note. Likely leukocytosis is secondary to steroids, in patient with clinical improvement Plan to taper steroids.. ELANNA RAMIREZ DO Aug 24, 2018 15:34 ROLAND DOMINGUEZ DO Aug 26, 2018 02:13
[2018-08-24 19:08] LABS: ALBUMIN 3.3 GM/DL (3.2-5.2); CALCIUM LEVEL 7.9 MG/DL (8.8-10.2); CREATININE FOR GFR 1.79 MG/DL (0.55-1.30); GLOMERULAR FILTRATION RATE 28.9 (>32); PHOSPHORUS LEVEL 4.5 MG/DL (2.5-4.9); POTASSIUM SERUM 4.8 MEQ/L (3.5-5.1)
[2018-08-24] MEDS: LEVEMIR (INSULIN DETEMIR) 1 UNITS/0.01ML SC SCH (20:26)
[2018-08-24] MEDS: SENNA 8.6 MG TAB (SENOKOT) PO SCH (20:26)
[2018-08-24 22:00] VITALS: BP 152/60
[2018-08-24 22:15] VITALS: BP 158/62
[2018-08-24 22:30] VITALS: BP 162/58
[2018-08-24 23:30] VITALS: BP 162/64
[2018-08-25] VITALS: BP 166/62
[2018-08-25] MEDS: IPRATROPIUM 0.5MG/ALBUTEROL 2.5MG INH SOL UD 3ML (DUONEB)(J7620) NEB SCH ×5 (00:15→20:00)
[2018-08-25 01:00] VITALS: BP 158/62
[2018-08-25] MEDS: LEVOTHYROXINE 100MCG TABLET (0.1MG) PO SCH (05:14)
[2018-08-25 06:00] VITALS: BP 157/72
[2018-08-25 06:08] LABS: HEMATOCRIT 30.7 % (36.0-47.0); HEMOGLOBIN 9.2 g/dl (12.0-15.5); MEAN CORPUSCULAR HEMOGLOBIN 23.1 pg (27.0-33.0); MEAN CORPUSCULAR VOLUME 77.1 fl (80.0-96.0); PLATELET COUNT, AUTOMATED 317 10^3/uL (150-450); RED BLOOD COUNT 3.98 10^6/uL (4.00-5.40); WHITE BLOOD COUNT 16.4 10^3/uL (4.0-10.0)
[2018-08-25] MEDS: ADVAIR HFA 45/21MCG INHALER INH SCH ×2 (07:28→21:17)
[2018-08-25 08:33] LABS: CREATININE FOR GFR 1.4 MG/DL (0.55-1.30); GLOMERULAR FILTRATION RATE 38.4 (>32); POTASSIUM SERUM 4.6 MEQ/L (3.5-5.1)
[2018-08-25] MEDS: traMADol 50 MG TAB PO SCH ×2 (09:00→21:00)
[2018-08-25] MEDS: predniSONE 10 MG TAB PO SCH (09:03)
[2018-08-25] MEDS: busPIRone 5 MG TAB PO SCH ×3 (09:03→21:31)
[2018-08-25] MEDS: HumaLOG INSULIN (NovoLOG) PER UNIT SC SCH ×3 (09:03→17:56)
[2018-08-25] MEDS: OMEPRAZOLE 20 MG CAP PO SCH (09:03)
[2018-08-25] MEDS: ATORVASTATIN 20 MG TAB PO SCH (09:03)
[2018-08-25] MEDS: TORSEMIDE 20 MG TAB PO SCH ×2 (09:04→16:48)
[2018-08-25] MEDS: AMIODARONE 200 MG TAB (PACERONE) PO SCH (09:04)
[2018-08-25] MEDS: LOSARTAN 25 MG TAB PO SCH (09:05)
[2018-08-25] MEDS: DOCUSATE SODIUM 100 MG CAP PO SCH (09:05)
[2018-08-25] MEDS: APIXABAN 5 MG TAB (ELIQUIS) PO SCH ×2 (09:05→21:30)
[2018-08-25] MEDS: SPIRONOLACTONE 12.5MG PER 1/2 TABLET PO SCH (09:13)
--- NOTE | 2018-08-25 09:54 | IPN ---
DATE: 08/24/2018 SUBJECTIVE: The patient reports that her shortness of breath continues. She said it has not gotten better or worse, but has stayed about the same since she has been admitted. She is only able to get up out of bed to sit in the chair or go to the bathroom. She is not able to walk to the door of her room without getting severely short of breath. Otherwise she denies any chest pain or palpitations nor does she have any near syncope or anginal symptoms at this time. REVIEW OF SYSTEMS: A 10 point review of systems was negative except for what was mentioned above. Objectively, her vitals are temperature 96.8, pulse 97, respiratory rate 18, blood pressure 158/62, pulse oximetry 98% on 4 liters of oxygen via nasal cannula. Ins and outs - she is net negative 350 mL today and she is 78 kg which is about the same as yesterday. PHYSICAL EXAMINATION: GENERALLY: She is awake, alert, pleasant, in no acute distress. She is sitting up in her chair at the bedside. HEENT: Her mucosa membranes are moist. Extraocular movements are intact. She has no thyromegaly. Her teeth are in good condition and she has nonicteric sclera. Also her pharynx is normal. Tongue is midline. NECK: She has no jugular venous distention (JVD) present. CHEST: She is clear to auscultation bilaterally. She has no wheezing. She has no crackles or adventitious breath sounds. No rhonchi. HEART: She is regular rate and rhythm. She has a 3/6 soft systolic murmur heard best at the left upper sternal border. She has no rubs or gallops. Peripheral pulses are intact. ABDOMEN: Soft, nontender. No hepatosplenomegaly. Normal bowel sounds. EXTREMITIES: She has 1+ pitting edema in her lower extremities bilaterally. No clubbing or cyanosis. SKIN: Normal turgor and temperature. NEURO: No focal deficits observed at this time. PSYCHIATRY: Normal mood and normal affect. LABORATORY: This morning her white blood cell count was 19.3. Her hemoglobin was 8.8. Her hematocrit was 30.6 and her platelet count was 174. Her sodium 140, potassium 4.1, chloride 96, carbon dioxide 40. Her BUN is 45 . Her creatinine 1.6. Her calcium is 8.3. She did get a chest x-ray today which found linear densities present in the lower lobes consistent with atelectasis, an enlarged cardiac silhouette. The heart is normal in size and the pulmonary vasculature is normal in appearance. So the impression reads: Bibasilar atelectasis with cardiomegaly. 1. Her most recent echocardiogram which was read on August 20 demonstrates aortic stenosis which is severe by dimensionless index in aortic valve area moderate as judged by mean aortic valve gradient and peak aortic velocity. The impression is that she has severe focal thickening and focal calcific deposits on her aortic valve which lead to aortic valve stenosis considered to be severe by calcification. 2. She has mild concentric left ventricular with a left ventricular ejection fraction of 65% making her grade 2 left ventricular diastolic dysfunction. 3. She has moderate left atrial dilation. 4. She has severe mitral annular calcification with very mild mitral regurgitation and no mitral stenosis. 5. She has suggestive of moderate elevation of estimated right ventricle systolic pressure at 47 mmHg. She has mild tricuspid regurgitation, normal right ventricular size and systolic function and IVC dilation suggestive of elevated central venous pressure of at least 20 mmHg. ASSESSMENT AND PLAN: Ms. Calderon is an 83-year-old female with chronic coronary artery disease, aortic stenosis felt to be approximately moderately severe and chronic dyspnea. 1. Aortic stenosis. Efforts have been made to contact her cardiology in [place] to find that no interventions which to be done by them, however the patient remains severely short of breath with inability to performed most activities of daily living. Awaiting results of the pulmonary function test done by Dr. Bermeo in the past of couple of months. 2. Severe dyspnea: Likely secondary to aortic stenosis, but may also be due to iron deficiency. Recommend IV iron supplementation as the patient is already on oral iron supplementation. Dyspnea may also be due to fluid overload, however, the patient does not complain of lower extremity swelling that is worse than normal. Lasix was switched to oral Torsemide 20mg BID 3. Iron deficiency anemia. As stated above the patient will need iron supplementation at this time. We have consented her and ordered 1u PRBCs at this time and ordered a stool for occult blood in order to ascertain where she is bleeding at this time. 4. History of coronary artery disease: There is no need for ASA at this time. Continue statin therapy. 5. Hypertension. Stop Cardizem. Continue Spironolactone 12.5mg 6. Atrial fibrillation. Continue anticoagulation with Eliquis and rate control. Appears to be stable at this time. Continue Amiodarone My faculty preceptor for this patient encounter was physically present during the encounter and was fully available. All aspects of the patient interview, examination, medical decision making process, and medical care plan development were reviewed and approved by the faculty preceptor. The faculty preceptor is aware and concurs with the plan as stated in the body of this note and will attest to such by his/her cosignature. CASE
--- NOTE | 2018-08-25 13:34 | IPNPDOC ---
Subjective Date Seen The patient was seen on 08/25/18. Subjective Chief Complaint/HPI No acute events overnight. Patient states she is breathing much better after her transfusion yesterday. She was seen by cardiology who informed her that moving forward even if she had the surgery on her valve, her quality of life would be unlikely to improve. She currently is only complaining of mild nausea, but otherwise states she is actually feeling much better. Objective Physical Examination General Exam: Positive: Alert, Cooperative, No Acute Distress Eye Exam: Positive: EOMI; Negative: Sclera icteric ENT Exam: Positive: Atraumatic, Mucous membr. moist/pink, Pharynx Normal (No pharyngeal erythema or exudate), Tongue Midline, Nares Patent; Negative: Pharyngeal Edema Neck Exam: Negative: JVD Chest Exam: Positive: Clear to auscultation, Diminished (bilaterally); Negative: Rales, Rhonchi, Wheezing Heart Exam: Positive: Rate Normal, Normal S1, Normal S2, Murmurs (Soft systolic murmur best heard at LUSB) Abdomen Exam: Positive: Normal bowel sounds, Soft; Negative: Tenderness, Hepatospenomegaly Extremity Exam: Positive: Edema (1+ pitting edema in bilateral lower extremities. ); Negative: Clubbing, Cyanosis Skin Exam: Positive: Nl turgor and temperature Neuro Exam: Positive: Normal Speech Psych Exam: Positive: Mental status NL, Mood NL Assessment /Plan Problems (1) Iron deficiency anemia Status: Chronic Response to Treatment: Stable Problem Text: 08/25- S/p blood transfusion last night. Patient is breathing much easier as a result. IV iron was recommended by cardiology. We will hold off on it at this time as it is not without its own negative side effects. 08/24- Her anemia is mildly improved since she has been on iron supplementation. Continue home meds. Hemoglobin mildly decreased, will continue to monitor. She currently has no signs of bleeding and has not complained of black/darkened stool or hemoptysis. (2) COPD (chronic obstructive pulmonary disease) Status: Chronic Response to Treatment: Stable Discussed With: Patient Problem Specific Plan: Monitor Clinically Problem Text: 08/25- Obtained most recent PFT (05/13/2018) which demonstrated severe airflow obstruction with decreased FVC with an FEV1 of 0.84 liters (41%) and an FVC1 1.54 liters (56%). FEV1/FVC ratio was 73%. Impression per Dr. Bermeo's note is "Severe airflow obstruction compounded by a restrictive pulmonary defect and mild anemia. Hemoglobin of 9.7". At that time, she was continued on Anoro 62.5-25 mcg/inh once daily and short acting beta agonist as needed with 24/7 oxygen. For this admission she has been receiving regular nebulizer treatments, has been on oral steroids, and was placed on advair this past Friday. I'm not sure what else can be added to this regimen at this point in terms of respiratory medications. 08/24- Patient started on advair on Friday for her dyspnea. Notes no worsening dyspnea today. 08/22- Patient's wheezing has persisted the last 2 days and in an effort to try and maximize her we will try starting her on an advair inhaler to see if that helps with her breathing. 08/21- Discontinuing Doxycycline as patient not exhibiting signs or symptoms of pneumonia. Her cough is non-productive and her CXR from several days ago was looking good. Her WBC count is also coming down. We are also weaning her steroids down at this time. 08/20- Sputum culture and gram stain not collected because patient doesn't feel like she can bring anything up. Since she is improving and has already been on Doxy for 3 days I will discontinue this order. 08/18- Patient complaining of vague symptoms and continued cough with yellow sputum production. She states her breathing is fine and is at baseline for her. Obtained repeat imaging to look for new or worsening LLL infiltrate, but no definite infiltrate is seen, their is atelectasis and effusion still present in left lower lobe. Will obtain sputum culture and gram stain to ensure doxycycline is appropriately covering her for an infection. 08/17-Patient on albuterol at home. May not need IV solumedrol, will consider discontinuing today. Patient ok to continue nebs. I do not feel this is a COPD exacerbation, ABG's have been essentially normal and patient is satting in upper 90s on 4 L of her home oxygen. May also consider discontinuing doxycycline, could obtain repeat CXR to rule out although clinically patient does not seem like she has signs or symptoms of pneumonia. (3) Aortic stenosis, severe Status: Chronic Problem Text: 08/25- Patient seen by Dr. Herring yesterday who consented her for transfusion, switched her lasix to torsemide, and spoke with her about her prognosis regarding her aortic stenosis. Even in the event the stenosis is truly severe enough it is unlikely that her quality of life would improve. Patient voiced understanding of this information this morning. 08/24- Patient was seen by Dr. Zuniga over the weekend who did not feel her dyspnea was primarily related to her aortic stenosis. He held her amiodarone and ordered serum iron studies as her hgb was low, it is beginning to recover since she has been on PO iron supplementation, though she may require IV down the road. Dr. Herring is her academic physician and will be in to see her some time today to weigh in on her stenosis. Dr. Steel spoke with cardiology at [facility] and at this time, they would likely not do anything surgically to correct stenosis as she would likely not meet the criteria for repair. 08/22- Per Dr. Zuniga, he is not convinced this is the likely culpirate we will try to maximize other causes of dyspnea such as anemia and COPD to see if her dyspnea improves. Dr. Steel spoke with cardiology at [facility] who felt she likely would not be a candidate for surgical repair as she currently is not meeting criteria for it. 08/21- Echo results are back and demonstrate moderate stenosis by mean aortic valve gradient and peak aortic velocity and severe aortic stenosis by dimensionless index and aortic valve area. At this time I don't feel their are better explanations for her worsening dyspnea during admission. Cardiology has been consulted and they are recommending transfer to [facility] for surgical repair of her stenosis. We have obtained patient records from her [facility] transfer for the same reason last year and are trying to get in touch with a academic physician from their group to speak to see if they would be likely to intervene should we attempt to transfer the patient. Awaiting callback from academic physician on this matter. 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 also monitored by academic physician in [facility]. lung disease makes her not a good candidate for conventional valve replacement. previous eval has it that her valve isn't sufficiently severe to justify transcutaneous approach. (4) Physical deconditioning Status: Chronic Problem Text: 08/24- She continues to work with PT 08/21- She was not able to participate in PT yesterday, will try again today. 08/20- Physical therapy to evaluate and see patient. (5) Acute exacerbation of CHF (congestive heart failure) Status: Resolved Response to Treatment: Stable Discussed With: Patient, Family with Pt Consent Problem Text: 08/21- Patient likely back to baseline for her CHF. She has dropped about 2 kg since admission and is no longer showing any clinical signs of symptoms of CHF. Will continue her on present lasix dose. 08/20- Patient now on PO lasix as her creatinine was continuing to creep up. She is tolerating the PO lasix well and continues to have good urine output. She no longer has crackles at the base of her left lung. 08/18- Urine output is adequate. Her lungs still have fine crackles on auscultation with peripheral lower extremity edema, but repeat CXR shows their is plate-like atelectasis in the left base and blunting of the left lateral pleural angle. 08/17- Patient admitted with worsening SOB, non-productive cough, bibasilar crackles, orthopnea. Improved overnight with lasix putting out 1550 so far today and feeling much less SOB. Will continue this and monitor her clinically to see how she improves. Obtaining echo today to look for worsening aortic stenosis or possible worsening CHF, I suspect they are inter-related as aortic stenosis could potentially mimic signs and symptoms of systolic CHF. (6) Atrial fibrillation Status: Chronic Response to Treatment: Stable Problem Text: 08/20- Continue home meds. 08/18-stable HR controlled, continue home meds 08/17-Continue with eliquis and cardizem (7) Coronary arteriosclerosis Status: Chronic Response to Treatment: Stable Problem Text: 08/18-Continue home medications 08/17-continue asa, statin, and nitroglycerin, prn (8) Hypothyroidism Status: Chronic Response to Treatment: Stable Problem Text: TSH normal, T4 elevated at 16. Will continue home levothyroxine dose and have patient follow up outpatient for possible adjustment. (9) CKD (chronic kidney disease) stage 3, GFR 30-59 ml/min Status: Chronic Response to Treatment: Stable Problem Text: 08/18- Creatinine at about baseline compared with prior visits. BUN elevated. still making good urine. 08/17-Stable. (10) Diabetes mellitus Status: Chronic Response to Treatment: Stable Problem Text: Continue with sliding scale insulin. (11) JASPAL (obstructive sleep apnea) Status: Chronic Problem Text: Patients ABG showing respiratory alkalosis with elevated PO2. Not sure the last time she followed with pulmonology for an adjustment (12) Hypertension Status: Chronic Response to Treatment: Improving Problem Text: 08/18- Blood pressure improving. 08/17-Continue with patients home meds, may need to increase her home dose of losartan if these continue, will allow continued diuresis to see if her blood pressure is due to fluid overload. Plan/VTE VTE Prophylaxis Ordered?: Yes VS, I&O, 24H, Fishbone Vital Signs/I&O Vital Signs Date Time Temp Pulse Resp B/P (MAP) Pulse Ox O2 Delivery O2 Flow Rate FiO2 08/25/18 09:15 4.0 08/25/18 09:05 157/72 08/25/18 09:00 18 08/25/18 06:00 97.5 55 99 08/21/18 19:41 Nasal Cannula I&O- Last 24 Hours up to 6 AM 08/25/18 06:00 Intake Total 2100 ml Output Total 2350 ml Balance -250 ml Laboratory Data 24H LABS Laboratory Tests 2 08/24/18 17:20: Bedside Glucose (Misc Panel) 349H 08/24/18 18:31: Blood Urea Nitrogen 53H, Creatinine 1.79H, Sodium Level 135L, Potassium Level 4.8, Chloride Level 91L, Carbon Dioxide Level 35H, Anion Gap 9, Glomerular Filtration Rate 28.9L, Calcium Level 7.9L, Phosphorus Level 4.5, Albumin 3.3 08/24/18 19:44: Bedside Glucose (Misc Panel) 362H 08/25/18 05:18: Blood Urea Nitrogen 51H, Creatinine 1.40H, Sodium Level 138, Potassium Level 4.6, Chloride Level 93L, Carbon Dioxide Level 39H, Anion Gap 6L, Glomerular Filtration Rate 38.4, Calcium Level 8.0L 08/25/18 05:21: Nucleated Red Blood Cells % (auto) 0.0 08/25/18 06:12: Bedside Glucose (Misc Panel) 184H 08/25/18 11:50: Bedside Glucose (Misc Panel) 202H CBC/BMP Laboratory Tests 08/24/18 18:31 Anion Gap 9 08/25/18 05:18 Calcium Level 8.0 L 08/25/18 05:21 Red Blood Count 3.98 L, Mean Corpuscular Volume 77.1 L, Mean Corpuscular Hemoglobin 23.1 L, Mean Corpuscular Hemoglobin Concent 30.0 L, Red Cell Distribution Width 15.9 H Microbiology Microbiology 08/16/18 Blood Culture - Final, Complete NO GROWTH AFTER 5 DAYS 08/16/18 Blood Culture - Final, Complete NO GROWTH AFTER 5 DAYS 08/16/18 Respiratory Virus Panel (PCR) ([facility]) - Final, Complete GME ATTESTATION GME ATTESTATION My faculty preceptor for this patient encounter was physically present during the encounter and was fully available. All aspects of the patient interview, examination, medical decision making process, and medical care plan development were reviewed and approved by the faculty preceptor. The faculty preceptor is aware and concurs with the plan as stated in the body of this note and will attest to such by his/her cosignature. ATTENDING NOTE Patientt seen, agree with resident's note. LEANNA RAMIREZ DO Aug 25, 2018 13:34 ROLAND DOMINGUEZ DO Aug 26, 2018 02:14
[2018-08-25 14:00] VITALS: BP 154/52
[2018-08-25] MEDS: SENNA 8.6 MG TAB (SENOKOT) PO SCH (21:31)
[2018-08-25] MEDS: LEVEMIR (INSULIN DETEMIR) 1 UNITS/0.01ML SC SCH (21:31)
[2018-08-25 22:00] VITALS: BP 158/52
[2018-08-26] MEDS: IPRATROPIUM 0.5MG/ALBUTEROL 2.5MG INH SOL UD 3ML (DUONEB)(J7620) NEB SCH ×3 (04:00→09:36)
[2018-08-26] MEDS: LEVOTHYROXINE 100MCG TABLET (0.1MG) PO SCH (05:07)
[2018-08-26 05:54] LABS: HEMATOCRIT 31.2 % (36.0-47.0); HEMOGLOBIN 9.3 g/dl (12.0-15.5); MEAN CORPUSCULAR HEMOGLOBIN 23.1 pg (27.0-33.0); MEAN CORPUSCULAR HGB CONC 29.8 g/dl (32.0-36.5); MEAN CORPUSCULAR VOLUME 77.6 fl (80.0-96.0); PLATELET COUNT, AUTOMATED 313 10^3/uL (150-450); RED BLOOD COUNT 4.02 10^6/uL (4.00-5.40); WHITE BLOOD COUNT 16.5 10^3/uL (4.0-10.0)
[2018-08-26 06:00] VITALS: BP 168/64
[2018-08-26 06:19] LABS: CALCIUM LEVEL 8.1 MG/DL (8.8-10.2); CREATININE FOR GFR 1.36 MG/DL (0.55-1.30); GLOMERULAR FILTRATION RATE 39.7 (>32); POTASSIUM SERUM 3.8 MEQ/L (3.5-5.1)
[2018-08-26] MEDS: HumaLOG INSULIN (NovoLOG) PER UNIT SC SCH ×2 (08:08→12:34)
[2018-08-26] MEDS: ATORVASTATIN 20 MG TAB PO SCH (08:09)
[2018-08-26] MEDS: busPIRone 5 MG TAB PO SCH (08:09)
[2018-08-26 08:10] VITALS: BP 168/64
[2018-08-26] MEDS: LOSARTAN 25 MG TAB PO SCH (08:10)
[2018-08-26] MEDS: TORSEMIDE 20 MG TAB PO SCH (08:11)
[2018-08-26] MEDS: OMEPRAZOLE 20 MG CAP PO SCH (08:11)
[2018-08-26] MEDS: DOCUSATE SODIUM 100 MG CAP PO SCH (08:11)
[2018-08-26] MEDS: AMIODARONE 200 MG TAB (PACERONE) PO SCH (08:11)
[2018-08-26] MEDS: SPIRONOLACTONE 12.5MG PER 1/2 TABLET PO SCH (08:11)
[2018-08-26] MEDS: APIXABAN 5 MG TAB (ELIQUIS) PO SCH (08:11)
[2018-08-26] MEDS: predniSONE 10 MG TAB PO SCH (08:12)
[2018-08-26] MEDS: traMADol 50 MG TAB PO SCH (08:14)
[2018-08-26] MEDS ORDERED: TORS20TA2 PO (08:34)
[2018-08-26] MEDS ORDERED: PRED10TA2 PO (08:34)
[2018-08-26] MEDS ORDERED: ALDA25TA2 PO (08:34)
[2018-08-26] MEDS: ADVAIR HFA 45/21MCG INHALER INH SCH (09:36)
--- NOTE | 2018-08-26 14:31 | CR ---
DATE OF CONSULTATION: 08/26/2018 SUBJECTIVE: The patient reports that she is feeling better this morning. Her shortness of breath has improved. She has no major complaints this morning. She denies any chest pain, palpitations, dyspnea, paroxysmal nocturnal dyspnea, and she continues to only minimally be able to ambulate throughout, only in her room. OBJECTIVE: VITAL SIGNS: Temperature 97.6, pulse 63, respiratory rate 18, blood pressure 168/64, pulse oximetry is 98% on 4 liters nasal cannula. GENERAL: She is awake, alert, pleasant and in no acute distress. She is sitting upright in bed. HEENT: Her mucosal membranes are moist. Extraocular movements are intact. She has no thyromegaly. Her teeth are in good condition. She is nonicteric. Her pharynx is normal. Tongue is midline. NECK: She has no jugular venous distention present. CHEST: Clear to auscultation bilaterally without any wheezing. She has no crackles or adventitious breath sounds. No rhonchi. HEART: Regular rate and rhythm. She has a 3 out of 6 systolic murmur heard best at the left upper sternal border. She has no rubs or gallops. Peripheral pulses are intact and brisk. ABDOMEN: Soft and nontender. No hepatosplenomegaly. She has normal bowel sounds. EXTREMITIES: She has 1+ pitting edema in her lower extremities bilaterally. No clubbing or cyanosis. SKIN: She has normal turgor and temperature. NEUROLOGIC: She has no focal deficits observed at this time. PSYCHIATRIC: Normal mood and normal affect. Input and output: She is net negative 1590 mL from yesterday. She had three voids and one bowel movement. LABORATORY DATA This morning her white blood cell count is 16.5, hemoglobin is 9.3, and her hematocrit is 31.2. Her platelet count is 313. Chemistries: Her sodium today is 139, potassium 3.8, chloride 93, carbon dioxide is 42, BUN is 48, and creatinine is 1.3 today, calcium 8.1. There are no other investigations at this time. ASSESSMENT AND PLAN: This is an 83-year-old female with chronic coronary artery disease, critical aortic stenosis felt to be approximately moderately severe and chronic dyspnea, presenting for worsening weakness and dyspnea. 1. Aortic stenosis. We had a discussion with her regarding her prognosis. At this time, there is nothing more that can be done in terms of improving her dyspnea secondary to her severe aortic stenosis. 2. Severe dyspnea. It appears that this has improved with her transfusion 2 days ago. At this time, we will hold off on our suggestion of IV iron supplementation, as the patient's hemoglobin has held up around 9.3. Her stool occult blood was positive, therefore, the patient needs to be worked up for gastrointestinal bleed. Would suggest the primary team find when the last time she got a colonoscopy and work this up further as it appears she is profoundly anemic due to gastrointestinal blood loss. 3. Iron deficiency anemia, see above. She is status post transfusion of 1 unit of packed red blood cells. 4. History of coronary artery disease. Continue statin therapy. 5. Hypertension. Given the patient has very severe aortic stenosis, it is puzzling that her blood pressure would continue to remain so high. Continue spironolactone 12.5 mg. 6. Atrial fibrillation. Continue Eliquis and rate control. She appears to be stable at this time. Continue her amiodarone. My faculty preceptor for this patient encounter was physically present during the encounter and was fully available. All aspects of the patient interview, examination, medical decision making process, and medical care plan development were reviewed and approved by the faculty preceptor. The faculty preceptor is aware and concurs with the plan as stated in the body of this note and will attest to such by his/her co-signature. CASE
--- NOTE | 2018-08-26 18:37 | DS.PDOC ---
Discharge Summary General Date of Admission Aug 16, 2018 at 21:16 Date of Discharge 08/26/18 Primary Care Physician: David Pollack MD Attending Physician: ROLAND DOMINGUEZ DO Specialist/Consultants Involve: Kim Zuniga MD Discharge Summary PROCEDURES PERFORMED DURING STAY: ECHO CONCLUSIONS: 1. Severe focal thickening and focal calcific deposits of a 3-cusp aortic valve with severe reduction in aortic cusp mobility. Aortic valve stenosis considered to be severe on the basis of aortic valve area calculation (0.74 cm) and dimensionless index (0.23). Aortic valve stenosis considered to be moderate on the basis of peak aortic valve velocity (3.4 cm/sec) and mean aortic valve gradient (30 mmHg). 2. Mild concentric left ventricle hypertrophy. No regional LV wall motion abnormalities. Normal regional LV wall motion and wall thickening. Left ventricular ejection fraction of 65% by visual estimate. Normal LV systolic function. Grade II LV diastolic dysfunction (normal filling pattern). 3. Moderate left atrial dilatation. 4. Severe mitral annular calcification. Very mild mitral regurgitation. No mitral stenosis. 5. Suggestive of moderate elevation of estimated right ventricle systolic pressure (47 mmHg). Mild tricuspid regurgitation. Normal right ventricle size and systolic function. Inferior vena cava dilatation suggestive of elevated central venous pressure of at least 20 mmHg. ADMITTING DIAGNOSES: 1. COPD 2. Aortic Stenosis 3. CHF exacerbation 4. Iron Deficiency Anemia 5. Physical deconditioning COMPLICATIONS/CHIEF COMPLAINT: Acute On Chronic Resp Failure W Hypoxia. HISTORY OF PRESENT ILLNESS: Patient presented to the emergency room with worsening dyspnea on exertion over a period of 6 days. She reported cough with yellowish sputum. No chest pain. She also reported worsening lower extremity edema as well as orthopnea. She has a significant past medical history of chronic respiratory failure secondary to chronic obstructive pulmonary disease (COPD) on 4 liters O2 at night, coronary artery disease (CAD) status post two stents, hyperlipidemia, gastroesophageal reflux disease (GERD), moderate aortic stenosis, right sided heart failure, obstructive sleep apnea no longer on CPAP, hypothyroidism, hypertension, atrial fibrillation on Eliquis. HOSPITAL COURSE: 1. COPD (chronic obstructive pulmonary disease): Patient was started on IV solumedrol and Doxycyline (4 doses). She was eventually switched over to oral prednisone. She received regular nebulizer treatments. Patient's breathing slowing improved over the course of her hospitalization. Patient was maintained her her normal 4L of O2. 2. Aortic stenosis, severe: Cardiology was consulted. Cardiology did not feel her dyspnea was primarily related to her aortic stenosis. Cardiology made adjustments in her diuretic regimen. Cardiology in [place] was consulted as well. They did not feel she would be a candidate for surgical repair as she currently is not meeting criteria for it. Cardiology did speak with her about her prognosis regarding her aortic stenosis. Even in the event the stenosis is truly severe enough it is unlikely that her quality of life would improve. Patient voiced understanding of this information this morning. 3. Iron deficiency anemia: Patient had a blood transfusion on 08/25/18. Patient unable to tolerate oral iron. IV iron was recommended by cardiology. This will be something to consider outpatient. 4. Acute exacerbation of CHF (congestive heart failure): Patient was diuresed and improved throughout her hospital course. Cardiology made some adjustments in her diuretics. 5. Physical deconditioning: She worked with PT and was cleared for discharge to home with services, [facility] DISCHARGE MEDICATIONS: Please see below. ALLERGIES: Please see below. PHYSICAL EXAMINATION ON DISCHARGE: VITAL SIGNS: Please see below. GENERAL: AOx3, in NAD HEENT: unremarkable NECK: supple, no JVD CARDIOVASCULAR EXAMINATION: RRR, 3/6 murmur RESPIRATORY EXAMINATION: CTA, no wheezing or rhonci ABDOMINAL EXAMINATION: soft, non-tender, non-distended EXTREMITIES: no edema SKIN: warm ,dry, good turgor LABORATORY DATA: Please see below. IMAGING: Chest X-ray 08/16/18: Impression: Diffuse coarsened interstitial markings are nonspecific. Differential diagnosis includes chronic reactive airway disease, bronchitis as well as pulmonary interstitial edema. Chest X-ray 08/18/18: IMPRESSION: Blunted left lateral pleural angle. Plate-like atelectasis left base. No definite infiltrate. Mild cardiac enlargement again noted. Chest X-ray 08/24/18: Impression: 1. Bibasilar atelectasis. 2. Cardiomegaly. PROGNOSIS: good ACTIVITY: with walker DIET: Low Na+ diet DISCHARGE PLAN: Home with services DISCHARGE INSTRUCTIONS: 1. F/U with PCP in one week 2. F/U with Cardiology ITEMS TO FOLLOWUP ON ON OUTPATIENT: 1. Anemia 2. Changes in Diuretics DISCHARGE CONDITION: Stable Vital Signs/I&Os Vital Signs Date Time Temp Pulse Resp B/P (MAP) Pulse Ox O2 Delivery O2 Flow Rate FiO2 3/13/19 08:10 168/64 08/26/18 06:00 97.6 63 18 98 4.0 08/21/18 19:41 Nasal Cannula I&O- Last 24 Hours up to 6 AM 08/26/18 06:00 Intake Total 1500 ml Output Total 2650 ml Balance -1150 ml Laboratory Data Labs 24H Laboratory Tests 2 08/25/18 11:50: Bedside Glucose (Misc Panel) 202H 08/25/18 17:01: Bedside Glucose (Misc Panel) 332H 08/25/18 19:46: Bedside Glucose (Misc Panel) 387H 08/26/18 05:23: Nucleated Red Blood Cells % (auto) 0.0, Anion Gap 4L, Glomerular Filtration Rate 39.7, Blood Urea Nitrogen 48H, Creatinine 1.36H, Sodium Level 139, Potassium Level 3.8, Chloride Level 93L, Carbon Dioxide Level 42H, Calcium Level 8.1L CBC/BMP Laboratory Tests 08/26/18 05:23 Red Blood Count 4.02, Mean Corpuscular Volume 77.6 L, Mean Corpuscular Hemoglobin 23.1 L, Mean Corpuscular Hemoglobin Concent 29.8 L, Red Cell Distribution Width 16.5 H, Calcium Level 8.1 L FSBS Laboratory Tests Test 08/25/18 11:50 08/25/18 17:01 08/25/18 19:46 Range/Units Bedside Glucose (Misc Panel) 202 332 387 83-110 MG/DL Microbiology Microbiology 08/16/18 Blood Culture - Final, Complete NO GROWTH AFTER 5 DAYS 08/16/18 Blood Culture - Final, Complete NO GROWTH AFTER 5 DAYS 08/25/18 Stool Occult Blood ([facility]ATHY) - Final, Complete 08/16/18 Respiratory Virus Panel (PCR) ([facility]) - Final, Complete Discharge Medications Scheduled (Viactiv 500-500-40 mg-Unt-Mcg) 1 Chw Chw, 1 CHW PO Q2D, (Reported) TAKES THE SAME DAY IRON TABLET (Anoro Ellipta 62.5-25 Mcg/INH) 1 Aer Aer, 1 PUFF PO DAILY, (Reported) Amiodarone HCl (Amiodarone Hydrochloride) 200 Mg Tab, 200 MG PO DAILY, (Reported) Apixaban Base (Eliquis) 5 Mg Tab, 5 MG PO BID, (Reported) Aspirin (Aspirin EC) 81 Mg Tab, 81 MG PO DAILY, (Reported) Atorvastatin Calcium (Atorvastatin Calcium) 80 Mg Tab, 40 MG PO DAILY, (Re ported) Buspirone HCl (Buspirone HCl) 5 Mg Tab, 10 MG PO TID, (Reported) Diltiazem HCl (Diltiazem HCl ER) 180 Mg Cap, 180 MG PO DAILY, (Reported) Ferrous Sulfate, Dried (Slow Iron) 160 Mg Tab, 160 MG PO Q2D, (Reported) TAKES THE SAME DAY VIACTIVE CALCIUM CHEW Insulin Glargine (Lantus Solostar) 100 Unit/Ml Inj, 24 UNIT SC QHS, (Reported) Levothyroxine Sodium (Synthroid) 100 Mcg Tab, 100 MCG PO DAILY, (Reported) Losartan Potassium (Losartan Potassium) 25 Mg Tab, 25 MG PO DAILY, (Reported) Omeprazole (Omeprazole) 20 Mg Cap, 20 MG PO DAILY, (Reported) Prednisone (Prednisone) 10 Mg Tab, 30 MG PO DAILY Taper dose: 30 mg x 3 days, 20 mg x 3 days, 10 mg x 3 days, 5 mg x 3 days Senna (Senna-Lax) 8.6 Mg Tab, 17.2 TAB PO QHS, (Reported) Spironolactone (Aldactone) 25 Mg Tab, 12.5 MG PO DAILY Torsemide (Torsemide) 20 Mg Tab, 20 MG PO BID@09,17 Tramadol HCl (Tramadol HCl) 50 Mg Tab, 50 MG PO BID, (Reported) NEW MEDICATION, HAS NOT STARTED Scheduled PRN Albuterol Sulfate (Proair Hfa) 108 Mcg/Act Aer, 2 PUFF INH Q4-6H PRN for wheezing, (Reported) Guaifenesin (Mucinex) 600 Mg Tab, 600 MG PO BID PRN for CONGESTION, (Reported) Meclizine Hcl (Meclizine HCl) 25 Mg Chw, 25 MG PO BID PRN for DIZZINESS, (Reported) Nitroglycerin (Nitrostat) 0.4 Mg Subl, 0.4 MG SL NITRO PRN for ANGINA, (R eported) Allergies Coded Allergies: Penicillins (Verified Allergy, Intermediate, RASH, 07/23/17) Penicillins Cross Reactors (Verified Allergy, Intermediate, RASH, 07/23/17) Sulfa Drugs (Verified Allergy, Intermediate, RASH, 07/23/17) Sulfa Drugs Cross Reactors (Verified Allergy, Intermediate, RASH, 07/23/17) MYA Inhibitors (Verified Adverse Reaction, Mild, COUGH, 07/23/17) NSAIDs (Verified Adverse Reaction, Mild, GI UPSET DUODENITIS, 07/23/17) Spironolactone (Verified Adverse Reaction, Mild, ELEVATES POTASSIUM, 07/23/17) [facility] Aug 26, 2018 08:36
== END 2018-08-26 13:30 | disposition home health service (06) | DRG 291 ==
LOC: M ED 17:23 → M ED INP 21:16 → M PCU 22:07 → M MS5PR 08-22 17:30
PROVIDERS: ADMIT Internal Medicine; ATTEND Family Medicine
PROC: 30233N1 Transfusion of Nonautologous Red Blood Cells into Peripheral Vein, Percutaneous Approach (ICD-10-PCS; principal; 2018-08-24)
DX: I13.0 Hypertensive heart and chronic kidney disease with heart failure and stage 1 through stage 4 chronic kidney disease, or unspecified chronic kidney disease (principal); I50.43 Acute on chronic combined systolic (congestive) and diastolic (congestive) heart failure; J96.11 Chronic respiratory failure with hypoxia; J44.1 Chronic obstructive pulmonary disease with (acute) exacerbation; I25.10 Atherosclerotic heart disease of native coronary artery without angina pectoris; E78.5 Hyperlipidemia, unspecified; K21.9 Gastro-esophageal reflux disease without esophagitis; I35.0 Nonrheumatic aortic (valve) stenosis; G47.33 Obstructive sleep apnea (adult) (pediatric); D50.9 Iron deficiency anemia, unspecified; E03.9 Hypothyroidism, unspecified; N18.3 Chronic kidney disease, stage 3 (moderate); I48.0 Paroxysmal atrial fibrillation; Z66 Do not resuscitate; Z99.81 Dependence on supplemental oxygen; Z90.49 Acquired absence of other specified parts of digestive tract; Z98.49 Cataract extraction status, unspecified eye; Z79.01 Long term (current) use of anticoagulants; Z79.82 Long term (current) use of aspirin; Z79.899 Other long term (current) drug therapy; Z88.0 Allergy status to penicillin; Z88.2 Allergy status to sulfonamides; Z88.6 Allergy status to analgesic agent; Z88.8 Allergy status to other drugs, medicaments and biological substances; Z87.891 Personal history of nicotine dependence

== ENCOUNTER → 2018-09-01 | Outpatient (REF) | payer MEDICARE, OTHER ==
[~2018-09-01] MED LIST changes: +ALDA25TA2 PO; +ANOR1AER PO; +DILT180C43 PO; +FURO20TA2 PO; +LANTINJ4 SC; +MECL1CHW2 PO; +PROAAER10 INH; +TORS20TA2 PO
== END ==
LOC: M SFHCCAPE 14:36
PROVIDERS: ATTEND Physician Assistant
DX: J18.9 Pneumonia, unspecified organism (principal)

== ENCOUNTER → 2018-09-03 | Outpatient (CLI) | payer MEDICARE, OTHER ==
[~2018-09-03] MED LIST changes: +AMIO200T22 PO; -AMIO20TA PO; -DILT180C74 PO; +DILT1CAP10 PO; +DILT1CAP3 PO; -DILT360C16 PO; +MECL1CHW PO; -MECL1CHW2 PO; -VITA100T20 PO; +VITA100T51 PO
--- NOTE | 2018-09-03 13:43 | REP ---
Chest x-ray: Two views. History: Bronchitis. Comparison study: August 24, 2018. Findings: The lungs are hyperinflated. The heart is moderately enlarged. This is unchanged. Linear opacity in the right and left base consistent with discoid atelectasis. No definite infiltrate. The aorta is calcific and tortuous. There are degenerative changes in the thoracic spine. Impression: Hyperinflation, cardiomegaly, bibasilar discoid atelectasis left more so than right. No definite infiltrate.
== END ==
LOC: M CLY 10:39
PROVIDERS: ATTEND Family Medicine
DX: I51.7 Cardiomegaly (principal); J98.11 Atelectasis; J40 Bronchitis, not specified as acute or chronic; E11.9 Type 2 diabetes mellitus without complications

== ENCOUNTER → 2018-09-03 | Outpatient (REF) | payer MEDICARE, OTHER ==
[~2018-09-03] MED LIST changes: -AMIO200T22 PO; +AMIO20TA PO; +DILT180C74 PO; -DILT1CAP10 PO; -DILT1CAP3 PO; +DILT360C16 PO; -MECL1CHW PO; +MECL1CHW2 PO; +VITA100T20 PO; -VITA100T51 PO
[2018-09-03 18:15] LABS: HEMATOCRIT 32.5 % (36.0-47.0); HEMOGLOBIN 9.6 g/dl (12.0-15.5); MEAN CORPUSCULAR HEMOGLOBIN 23.4 pg (27.0-33.0); MEAN CORPUSCULAR HGB CONC 29.5 g/dl (32.0-36.5); MEAN CORPUSCULAR VOLUME 79.1 fl (80.0-96.0); PLATELET COUNT, AUTOMATED 320 10^3/uL (150-450); RED BLOOD COUNT 4.11 10^6/uL (4.00-5.40); WHITE BLOOD COUNT 16.4 10^3/uL (4.0-10.0)
[2018-09-03 18:36] LABS: CALCIUM LEVEL 8.8 MG/DL (8.8-10.2); CREATININE FOR GFR 1.91 MG/DL (0.55-1.30); FREE T4 1.66 NG/DL (0.76-1.46); GLOMERULAR FILTRATION RATE 26.8 (>32); POTASSIUM SERUM 4.4 MEQ/L (3.5-5.1); THYROID STIMULATING HORMONE 1.09 uIU/ML (0.358-3.740)
[2018-09-03 18:38] LABS: HEMOGLOBIN A1c 7.5 %
== END ==
LOC: M SFHCCLAY 10:06
PROVIDERS: ATTEND Family Medicine
DX: E03.2 Hypothyroidism due to medicaments and other exogenous substances (principal); E11.9 Type 2 diabetes mellitus without complications; J44.9 Chronic obstructive pulmonary disease, unspecified

== ENCOUNTER → 2018-11-04 | Outpatient (REF) | payer MEDICARE, OTHER ==
[~2018-11-04] MED LIST changes: +AMIO200T22 PO; -AMIO20TA PO; -DILT180C74 PO; +DILT1CAP10 PO; +DILT1CAP3 PO; -DILT360C16 PO; +MECL1CHW PO; -MECL1CHW2 PO; -VITA100T20 PO; +VITA100T51 PO
[2018-11-04 18:14] LABS: CALCIUM LEVEL 8.4 MG/DL (8.8-10.2); CREATININE FOR GFR 1.85 MG/DL (0.55-1.30); GLOMERULAR FILTRATION RATE 27.9 (>32); MAGNESIUM LEVEL 2.3 MG/DL (1.8-2.4); POTASSIUM SERUM 4.1 MEQ/L (3.5-5.1)
== END ==
LOC: M LABDRWCV 17:22
PROVIDERS: ATTEND Physician Assistant
DX: I50.32 Chronic diastolic (congestive) heart failure (principal); I48.0 Paroxysmal atrial fibrillation

== ENCOUNTER → 2018-11-18 | Outpatient (REF) | payer MEDICARE, OTHER ==
[2018-11-18 17:05] LABS: CALCIUM LEVEL 8.1 MG/DL (8.8-10.2); CREATININE FOR GFR 1.84 MG/DL (0.55-1.30); POTASSIUM SERUM 3.9 MEQ/L (3.5-5.1)
[2018-11-18 17:18] LABS: HEMATOCRIT 28.8 % (36.0-47.0); HEMOGLOBIN 8.3 g/dl (12.0-15.5); MEAN CORPUSCULAR HEMOGLOBIN 23.4 pg (27.0-33.0); MEAN CORPUSCULAR HGB CONC 28.8 g/dl (32.0-36.5); MEAN CORPUSCULAR VOLUME 81.4 fl (80.0-96.0); PLATELET COUNT, AUTOMATED 336 10^3/uL (150-450); RED BLOOD COUNT 3.54 10^6/uL (4.00-5.40); WHITE BLOOD COUNT 8.7 10^3/uL (4.0-10.0)
== END ==
LOC: M SFHCCLAY 11:45
PROVIDERS: ATTEND Family Medicine
DX: D64.9 Anemia, unspecified (principal); K57.32 Diverticulitis of large intestine without perforation or abscess without bleeding
CPT/HCPCS: 80048; 83540; 85027; G0463

== ENCOUNTER → 2018-12-01 | Outpatient (REF) | payer MEDICARE, OTHER ==
[2018-12-01 16:56] LABS: HEMATOCRIT 35.5 % (36.0-47.0); HEMOGLOBIN 10.2 g/dl (12.0-15.5); MEAN CORPUSCULAR HEMOGLOBIN 23.2 pg (27.0-33.0); MEAN CORPUSCULAR HGB CONC 28.7 g/dl (32.0-36.5); MEAN CORPUSCULAR VOLUME 80.9 fl (80.0-96.0); PLATELET COUNT, AUTOMATED 417 10^3/uL (150-450); RED BLOOD COUNT 4.39 10^6/uL (4.00-5.40); WHITE BLOOD COUNT 15.9 10^3/uL (4.0-10.0)
[2018-12-01 17:13] LABS: CREATININE FOR GFR 1.51 MG/DL (0.55-1.30); FREE T4 1.54 NG/DL (0.76-1.46); GLOMERULAR FILTRATION RATE 35.2 (>32); POTASSIUM SERUM 4.5 MEQ/L (3.5-5.1); THYROID STIMULATING HORMONE 1.57 uIU/ML (0.358-3.740)
== END ==
LOC: M SFHCCAPE 10:42
PROVIDERS: ATTEND Family Medicine
DX: J44.9 Chronic obstructive pulmonary disease, unspecified (principal); I27.81 Cor pulmonale (chronic); E03.2 Hypothyroidism due to medicaments and other exogenous substances; E11.9 Type 2 diabetes mellitus without complications

== ENCOUNTER → 2018-12-24 | Outpatient (REF) | payer MEDICARE, OTHER ==
[~2018-12-24] MED LIST changes: -OMEP20CA3 PO; +OMEP20CA4 PO; -VIAC8.5C PO; +VIACTIV 500-5001 CHW PO
[2018-12-24 18:55] LABS: CALCIUM LEVEL 8.4 MG/DL (8.8-10.2); CREATININE FOR GFR 1.65 MG/DL (0.55-1.30); GLOMERULAR FILTRATION RATE 31.8 (>32); POTASSIUM SERUM 3.6 MEQ/L (3.5-5.1)
== END ==
LOC: M LAB REF 16:23
PROVIDERS: ATTEND Physician Assistant
DX: I50.32 Chronic diastolic (congestive) heart failure (principal)

== ENCOUNTER → 2019-01-04 | Outpatient (REF) | payer MEDICARE, OTHER | LOC: M LAB REF 13:07 | PROVIDERS: ATTEND Internal Medicine Nephrology | DX: D50.9 Iron deficiency anemia, unspecified (principal) ==

== ENCOUNTER → 2019-01-07 | Outpatient (REF) | payer MEDICARE, OTHER ==
[2019-01-07 16:59] LABS: ALBUMIN 3.2 GM/DL (3.2-5.2); BILIRUBIN,TOTAL 0.4 MG/DL (0.2-1.0); C REACTIVE PROTEIN QUANTITATIV 1.06 MG/DL (0.00-0.30); CALCIUM LEVEL 8.6 MG/DL (8.8-10.2); CREATININE FOR GFR 1.52 MG/DL (0.55-1.30); GLOMERULAR FILTRATION RATE 34.9 (>32); POTASSIUM SERUM 3.8 MEQ/L (3.5-5.1); TOTAL PROTEIN 6.6 GM/DL (6.4-8.2)
[2019-01-07 17:33] LABS: BASO % 0.5 % (0.0-1.0); EOS # 0.2 10^3/uL (0.0-0.50); EOS % 1.8 % (0.0-3.0); HEMATOCRIT 29.2 % (36.0-47.0); HEMOGLOBIN 8.4 g/dl (12.0-15.5); LYMPH # 1.3 10^3/uL (1.5-4.5); LYMPH % 15.7 % (24.0-44.0); MEAN CORPUSCULAR HEMOGLOBIN 23.5 pg (27.0-33.0); MEAN CORPUSCULAR HGB CONC 28.8 g/dl (32.0-36.5); MEAN CORPUSCULAR VOLUME 81.6 fl (80.0-96.0); MONO # 0.6 10^3/uL (0.0-0.8); MONO % 7.4 % (0.0-5.0); NEUTROPHILS # 6.3 10^3/uL (1.8-7.7); NEUTROPHILS % 73.5 % (36.0-66.0); PLATELET COUNT, AUTOMATED 328 10^3/uL (150-450); RED BLOOD COUNT 3.58 10^6/uL (4.00-5.40); WHITE BLOOD COUNT 8.5 10^3/uL (4.0-10.0)
[2019-01-07 18:32] LABS: ERYTHROCYTE SEDIMENTATION RATE 67 mm/hr (0-30)
[2019-01-10 00:06] LABS: ANA (HEP2) Negative (.); Lyme Disease IgG/IgM Antibodie <0.91 ISR (0.00-0.90); Lyme Disease IgM Ab Quantitati <0.80 index (0.00-0.79)
== END ==
LOC: M SFHCCAPE 11:06
PROVIDERS: ATTEND Physician Assistant
DX: R21 Rash and other nonspecific skin eruption (principal)

== ENCOUNTER → 2019-01-11 | Outpatient (CLI) | payer MEDICARE, OTHER ==
--- NOTE | 2019-01-11 14:41 | REP ---
Clinical: Stage IV chronic medical renal disease. Technique: Real time faust scale ultrasound examination using curved array transducer. Findings: Kidneys are normal in reniform shape with increased central sinus fat and mild cortical thinning. No hydronephrosis, nephrolithiasis, cystic or renal mass lesion. No perinephric fluid collection. Right kidney measures 10.6 x 5.2 x 5.4 cm. Left kidney measures 8.8 x 3.4 x 3.5 cm. Bladder is unremarkable. Impression: Findings consistent with chronic renal disease. No hydronephrosis. Electronically Signed by Thien Mendez MD 01/11/2019 02:33 P
== END ==
LOC: M RAD 13:55
PROVIDERS: ATTEND Internal Medicine Nephrology
DX: N18.4 Chronic kidney disease, stage 4 (severe) (principal)

== ENCOUNTER 2019-02-23 08:27 | Outpatient (CLI) | payer MEDICARE, BC, OTHER ==
[~2019-02-23] VITALS: Ht 160 cm; Wt 77.9 kg
[2019-02-23] VITALS (9 sets, daily range): BP systolic 156–183; BP diastolic 58–78
[2019-02-23] MEDS ORDERED: IRON SUCROSE 475 MG in NS 250 ML IV ONE (09:30)
[2019-02-23] MEDS ORDERED: IRON SUCROSE 25 MG in NS 50 ML IV ONE (09:30)
== END 2019-02-23 14:50 | disposition home or self-care (01) ==
LOC: M INFU 08:27
PROVIDERS: ATTEND Internal Medicine Nephrology
DX: D50.9 Iron deficiency anemia, unspecified (principal)
CPT/HCPCS: 96365; 96366; J1756

== ENCOUNTER 2019-03-11 13:38 | Inpatient (IN) | payer MEDICARE, BC, OTHER ==
[~2019-03-11] VITALS: Ht 160 cm; Wt 73.2 kg
[2019-03-11] MEDS ORDERED: FURO40TA2 PO (13:56)
[2019-03-11] MEDS ORDERED: ALBUTEROL SULFATE 2.5 MG/0.5 ML INH NEB SOLN INH ONE (14:00)
[2019-03-11] MEDS ORDERED: IPRATROPIUM 0.5MG/ALBUTEROL 2.5MG INH SOL UD 3ML (DUONEB)(J7620) NEB ONE (14:00)
[2019-03-11 14:19] LABS: VENOUS BASE EXCESS 12.2 (-2.0-2.0); VENOUS HCO3 38.8 MEQ/L (23.0-27.0); VENOUS O2 SATURATION 62.8 % (60.0-80.0); VENOUS PARTIAL PRESSURE CO2 61.7 mmHg (38.0-50.0); VENOUS PARTIAL PRESSURE O2 33.5 mmHg (30.0-50.0); VENOUS PH 7.416 UNITS (7.330-7.430); VENOUS STANDARD HCO3 35.2 MEQ/L; VENOUS TOTAL CO2 40.7 MEQ/L (24.0-28.0)
[2019-03-11 14:25] LABS: BASO # 0.1 10^3/uL (0.0-0.2); BASO % 0.6 % (0.0-1.0); EOS # 0.2 10^3/uL (0.0-0.5); EOS % 1.7 % (0.0-3.0); HEMATOCRIT 31.5 % (36.0-47.0); HEMOGLOBIN 9.5 g/dl (12.0-15.5); LYMPH # 1.1 10^3/uL (1.5-5.0); LYMPH % 10.9 % (24.0-44.0); MEAN CORPUSCULAR HEMOGLOBIN 26.5 pg (27.0-33.0); MEAN CORPUSCULAR HGB CONC 30.2 g/dl (32.0-36.5); MONO # 0.9 10^3/uL (0.0-0.8); MONO % 9.1 % (0.0-5.0); NEUTROPHILS # 7.5 10^3/uL (1.5-8.5); NEUTROPHILS % 77.1 % (36.0-66.0); PLATELET COUNT, AUTOMATED 261 10^3/uL (150-450); RED BLOOD COUNT 3.58 10^6/uL (4.00-5.40); WHITE BLOOD COUNT 9.7 10^3/uL (4.0-10.0)
[2019-03-11 15:02] LABS: ALBUMIN 3.1 GM/DL (3.2-5.2); ALT/SGPT 22 U/L (12-78); BILIRUBIN,DIRECT 0.2 MG/DL (0.0-0.2); BILIRUBIN,TOTAL 0.4 MG/DL (0.2-1.0); BLOOD UREA NITROGEN 28 MG/DL (7-18); CALCIUM LEVEL 8.9 MG/DL (8.8-10.2); CARBON DIOXIDE LEVEL 38 MEQ/L (21-32); CHLORIDE LEVEL 94 MEQ/L (98-107); CK-MB VALUE MASS < 1.0 NG/ML (<3.6); CPK CREATINE PHOSPHOKINASE 53 U/L (26-192); CREATININE FOR GFR 1.51 MG/DL (0.55-1.30); GLOMERULAR FILTRATION RATE 35.2 (>32); GLUCOSE, FASTING 141 MG/DL (70-100); MB/CK RELATIVE INDEX 1.89 (< OR =4); NT-PRO BNP 2168 PG/ML (<450); POTASSIUM SERUM 3.9 MEQ/L (3.5-5.1); SODIUM LEVEL 138 MEQ/L (136-145); THYROID STIMULATING HORMONE 0.444 uIU/ML (0.358-3.740); TOTAL PROTEIN 6.5 GM/DL (6.4-8.2); TROPONIN I < 0.02 NG/ML (< 0.10)
--- NOTE | 2019-03-11 15:07 | REP ---
CHEST, SINGLE VIEW: Single view of the chest performed. COMPARISON: 09/03/2018 There is an infiltrate in the right lung base. There is cardiomegaly. There are mild overlying chronic interstitial changes. There is calcification of the thoracic aorta. The mediastinal silhouette is unchanged. IMPRESSION: Cardiomegaly. Right base infiltrate. Electronically Signed by Alex Ace MD 03/11/2019 04:58 P
[2019-03-11] MEDS ORDERED: cefTRIAXone SOD 2 GM in D5W MINI-BAG PLUS 50 ML IV ONE (16:00)
[2019-03-11] MEDS ORDERED: AZITHROMYCIN INJ 500 MG, VIAL MATE ADAPTER 1 EACH in D5W 250 ML IV ONE (16:00)
[2019-03-11] MEDS ORDERED: ACETAMINOPHEN TAB 650MG DOSE (2X325MG) PO ONE (16:30)
[2019-03-11] MEDS ORDERED: CALC1CAP31 PO (16:39)
[2019-03-11] MEDS ORDERED: VIAC1CHW PO (16:39)
[2019-03-11] MEDS ORDERED: ALBU83IN INH (16:39)
[2019-03-11] MEDS ORDERED: MECL-86 PO (16:39)
[2019-03-11] MEDS ORDERED: PERF20NE2 INH (16:39)
[2019-03-11] MEDS ORDERED: BUME2TAB3 PO (16:39)
[2019-03-11] MEDS ORDERED: FERRO SEQUELS PO (16:39)
[2019-03-11] MEDS ORDERED: LevoFLOXacin IV 250 MG in IV 1 EA IV SCH (17:30)
[2019-03-11] MEDS ORDERED: GLUCOSE 4 GM CHEW TABLET PO PRN (17:30)
[2019-03-11] MEDS ORDERED: DEXTROSE 50% 50 ML SYRINGE IV PRN (17:30)
[2019-03-11] MEDS ORDERED: GLUCAGON FOR INJ 1 MG VIAL (J1610) SC PRN (17:30)
--- NOTE | 2019-03-11 18:14 | REPVR ---
PROCEDURE INFORMATION: Exam: CT Chest Without Contrast Exam date and time: 03/11/2019 5:40 PM Clinical history: 83 years old, female; Abnormal findings; Abnormal radiologic exam of lung or chest; Additional info: Abnl cxr TECHNIQUE: Imaging protocol: Computed tomography of the chest without contrast. 3D rendering: MIP reconstructed images were created and reviewed. Radiation optimization: All CT scans at this facility use at least one of these dose optimization techniques: automated exposure control; mA and/or kV adjustment per patient size (includes targeted exams where dose is matched to clinical indication); or iterative reconstruction. COMPARISON: CT Chest without contrast 08/01/2017 3:12 PM FINDINGS: Lungs: Mild centrilobular emphysema most pronounced in the mid and upper lung zones. Mixed airspace and interstitial infiltrate with dense foci of consolidation at the right lung base. Finding is new in comparison to the prior examination of 08/01/2017. Differential includes both inflammatory/infectious and neoplastic etiologies. There is bibasilar compressive atelectasis. Pleural space: Unremarkable. No pneumothorax. No pleural effusion. Heart: There is severe atherosclerotic calcification of the coronary arteries. Calcified aortic valve. Cardiomegaly. Mediastinum: Small hiatal hernia. Pulmonary arteries: There is enlargement of the central pulmonary arteries, findings which can be associated with pulmonary arterial hypertension which should be correlated clinically. Aorta: The aorta demonstrates moderate atherosclerotic calcification. Lymph nodes: Multiple small mediastinal lymph nodes. Gallbladder and bile ducts: Cholecystectomy. Bones/joints: The spine demonstrates moderate degenerative changes. Soft tissues: See Lungs Finding. IMPRESSION: 1. Mixed airspace and interstitial infiltrate with dense foci of consolidation at the right lung base. Finding is new in comparison to the prior examination of 08/01/2017. Differential includes both inflammatory/infectious and neoplastic etiologies. Followup after treatment suggested. Further evaluation with PET scan maybe necessary. 2. There is enlargement of the central pulmonary arteries, findings which can be associated with pulmonary arterial hypertension which should be correlated clinically. 3. Cardiomegaly. Coronary artery disease. Electronically signed by: Bladimir Danielson On 03/11/2019 18:14:00 PM
[2019-03-11] MEDS: IPRATROPIUM 0.5MG/ALBUTEROL 2.5MG INH SOL UD 3ML (DUONEB)(J7620) NEB SCH (20:00)
[2019-03-11] MEDS: MECLIZINE 25 MG TABLET PO PRN ×2 (20:19→20:27)
[2019-03-11] MEDS: APIXABAN 5 MG TAB (ELIQUIS) PO SCH (20:19)
[2019-03-11] MEDS: AMIODARONE 200 MG TAB (PACERONE) PO SCH (20:19)
[2019-03-11] MEDS: OMEPRAZOLE 20 MG CAP PO SCH (20:19)
[2019-03-11] MEDS: busPIRone 5 MG TAB PO SCH ×2 (20:19→21:00)
[2019-03-11] MEDS: LEVEMIR (INSULIN DETEMIR) 1 UNITS/0.01ML SC SCH (20:20)
[2019-03-11] MEDS: ATORVASTATIN 20 MG TAB PO SCH (20:20)
[2019-03-11] MEDS: LOSARTAN 25 MG TAB PO SCH (20:20)
[2019-03-11] MEDS: HumaLOG INSULIN (NovoLOG) PER UNIT SC SCH ×2 (20:22→21:00)
[2019-03-11] MEDS: DOXYCYCLINE HYCLATE 100 MG in D5W MINI-BAG PLUS 100 ML IV SCH (20:41)
[2019-03-11] MEDS: diltiaZEM **CD** 180 MG CAP PO SCH (20:41)
[2019-03-11] MEDS: ASPIRIN 81 MG ENTERIC TAB PO SCH (20:41)
[2019-03-11] MEDS: CALCITRIOL 0.25 MCG CAP (S0169) PO SCH (20:55)
[2019-03-11] MEDS: BUMETANIDE 1 MG TAB PO SCH (20:55)
[2019-03-11] MEDS: SENNA 8.6 MG TAB (SENOKOT) PO PRN (21:52)
--- NOTE | 2019-03-11 23:02 | HPE ---
DATE OF ADMISSION: 03/11/2019 Miranda was admitted for community-acquired pneumonia, right sided. Her history and physical is documented on the electronic medical record and a copy will be placed in her chart. Edited 03/12/2019 cassia
[2019-03-11 23:55] VITALS: BP 168/79
--- NOTE | 2019-03-12 00:07 | ECGEPIP ---
[facility] - ED Test Date: 2019-03-11 Pat Name: HEATHER PICHARDO Department: Room: - Gender: Female Capacity Manager: [place] : 1935 Requested By: LI Rodgers Order Number: [id number] Reading MD: Tonio Warren Measurements Intervals Evans Rate: 62 P: 65 ID: [id number] QRS: 77 QRSD: 173 T: 66 QT: 489 QTc: 498 Interpretive Statements SINUS RHYTHM WITH FIRST DEGREE AV BLOCK RIGHT BUNDLE BRANCH BLOCK SIMILAR TO 08/17/18 Electronically Signed on 03-12-2019 0:07:11 EDT by Tonio Warren
[2019-03-12] MEDS: IPRATROPIUM 0.5MG/ALBUTEROL 2.5MG INH SOL UD 3ML (DUONEB)(J7620) NEB SCH ×4 (02:00→18:39)
[2019-03-12] MEDS: IPRATROPIUM 0.5MG/ALBUTEROL 2.5MG INH SOL UD 3ML (DUONEB)(J7620) NEB PRN ×2 (05:29→23:28)
[2019-03-12 05:35] VITALS: BP 143/60
[2019-03-12] MEDS: LEVOTHYROXINE 100MCG TABLET (0.1MG) PO SCH (05:36)
[2019-03-12] MEDS: DOXYCYCLINE HYCLATE 100 MG in D5W MINI-BAG PLUS 100 ML IV SCH ×2 (05:36→17:27)
[2019-03-12 06:50] LABS: HEMATOCRIT 28.9 % (36.0-47.0); HEMOGLOBIN 8.7 g/dl (12.0-15.5); MEAN CORPUSCULAR HEMOGLOBIN 25.6 pg (27.0-33.0); MEAN CORPUSCULAR HGB CONC 30.1 g/dl (32.0-36.5); PLATELET COUNT, AUTOMATED 254 10^3/uL (150-450); WHITE BLOOD COUNT 7.5 10^3/uL (4.0-10.0)
[2019-03-12 07:22] LABS: CALCIUM LEVEL 8.3 MG/DL (8.8-10.2); CREATININE FOR GFR 1.61 MG/DL (0.55-1.30); GLOMERULAR FILTRATION RATE 32.7 (>32); POTASSIUM SERUM 3.5 MEQ/L (3.5-5.1)
[2019-03-12] MEDS: methylPREDNISolone INJ 125 MG/2 ML VIAL (J2930) IV SCH (08:42)
[2019-03-12] MEDS: HumaLOG INSULIN (NovoLOG) PER UNIT SC SCH ×4 (08:43→21:17)
[2019-03-12] MEDS: BUMETANIDE 1 MG TAB PO SCH (08:43)
[2019-03-12] MEDS: OMEPRAZOLE 20 MG CAP PO SCH (08:43)
[2019-03-12] MEDS: ASPIRIN 81 MG ENTERIC TAB PO SCH (08:43)
[2019-03-12] MEDS: busPIRone 5 MG TAB PO SCH ×3 (08:43→21:17)
[2019-03-12] MEDS: diltiaZEM **CD** 180 MG CAP PO SCH (08:44)
[2019-03-12] MEDS: AMIODARONE 200 MG TAB (PACERONE) PO SCH (08:44)
[2019-03-12] MEDS: CALCITRIOL 0.25 MCG CAP (S0169) PO SCH (08:44)
[2019-03-12] MEDS: APIXABAN 5 MG TAB (ELIQUIS) PO SCH ×2 (08:44→21:17)
[2019-03-12] MEDS: LOSARTAN 25 MG TAB PO SCH (08:44)
--- NOTE | 2019-03-12 08:54 | IPNPDOC ---
Subjective Date Seen The patient was seen on 03/12/19. Subjective Chief Complaint/HPI Feels good. Breathing improved Constitutional: Denies: Chills, Fever Pulmonary: Reports: Dyspnea (at baseline); Denies: Cough Cardiovascular: Denies: Chest Pain, Palpitations, Orthopnea Gastrointestinal: Denies: Nausea, Vomiting, Abdominal Pain, Diarrhea, Constipation Objective Physical Examination General Exam: Positive: Alert, No Acute Distress Chest Exam: Positive: Rales, Diminished; Negative: Rhonchi, Wheezing Heart Exam: Positive: Rate Normal, Regular Rhythm Abdomen Exam: Positive: Normal bowel sounds, Soft; Negative: Tenderness Extremity Exam: Negative: Edema Assessment /Plan Problems (1) CAP (community acquired pneumonia) Status: Acute Response to Treatment: Improving Problem Text: Clinically improving with Rocephin and Doxy Cont Solumedrol - decrease slowly as she tends to develop recurrent bronchospasm Cont usual home oxygen Follows with Dr. Bermeo as outpatient and should f/u with him regarding CT results to determine if any further wkup required JFW: spoke with Dr Bermeo, aware of [facility] CT, will see after d/c (2) JASPAL (obstructive sleep apnea) Status: Chronic (3) Atrial fibrillation Status: Chronic Response to Treatment: Stable (4) COPD (chronic obstructive pulmonary disease) Status: Chronic Response to Treatment: Stable (5) Diabetes mellitus Status: Chronic Response to Treatment: Stable Problem Text: Blood sugars high on Steroids - expect improvement once weaned Plan/VTE VTE Prophylaxis Ordered?: Yes (On eliquis for A-fib) Plan Therapy: PT VS, I&O, 24H, Fishbone Vital Signs/I&O Vital Signs Date Time Temp Pulse Resp B/P (MAP) Pulse Ox O2 Delivery O2 Flow Rate FiO2 03/12/19 08:44 143/60 03/12/19 08:44 60 03/12/19 06:15 3.0 03/12/19 05:35 97.7 18 97 03/11/19 22:00 Nasal Cannula I&O- Last 24 Hours up to 6 AM 03/12/19 06:00 Intake Total 765 ml Output Total 500 ml Balance 265 ml Laboratory Data 24H LABS Laboratory Tests 2 03/11/19 14:02: Blood Gas Bicarbonate Standard 35.2, Venous Blood pH 7.416, Venous Blood Partial Pressure CO2 61.7H, Venous Blood Partial Pressure O2 33.5, Venous Blood Total Carbon Dioxide 40.7H, Venous Blood HCO3 38.8H, Venous Blood Oxygen Saturation 62.8, Venous Blood Base Excess 12.2H, Anion Gap 6L, Glomerular Filtration Rate 35.2, Calcium Level 8.9, Aspartate Amino Transf (AST/SGOT) 15, Alanine Aminotransferase (ALT/SGPT) 22, Alkaline Phosphatase 70, Total Bilirubin 0.4, Direct Bilirubin 0.2, Total Creatine Kinase 53, Creatine Kinase MB < 1.0, Creatine Kinase MB Relative Index 1.89, Troponin I < 0.02, VE-Owi-S-Type Natriuretic Peptide 2168H, Total Protein 6.5, Albumin 3.1L, Albumin/Globulin Ratio 0.91L, Thyroid Stimulating Hormone (TSH) 0.444 03/11/19 14:03: Immature Granulocyte % (Auto) 0.6, White Blood Count 9.7, Red Blood Count 3.58L, Hemoglobin 9.5L, Hematocrit 31.5L, Mean Corpuscular Volume 88.0, Mean Corpuscular Hemoglobin 26.5L, Mean Corpuscular Hemoglobin Concent 30.2L, Red Cell Distribution Width 18.3H, Platelet Count 261, Neutrophils (%) (Auto) 77.1H, Lymphocytes (%) (Auto) 10.9L, Monocytes (%) (Auto) 9.1H, Eosinophils (%) (Auto) 1.7, Basophils (%) (Auto) 0.6, Neutrophils # (Auto) 7.5, Lymphocytes # (Auto) 1.1L, Monocytes # (Auto) 0.9H, Eosinophils # (Auto) 0.2, Basophils # (Auto) 0.1, Nucleated Red Blood Cells % (auto) 0.0, Lactic Acid Level 1.0 03/11/19 19:12: Bedside Glucose (Misc Panel) 354H 03/12/19 06:02: Anion Gap 5L, Glomerular Filtration Rate 32.7, Calcium Level 8.3L, Nucleated Red Blood Cells % (auto) 0.0, Blood Urea Nitrogen 29H, Creatinine 1.61H, Sodium Level 136, Potassium Level 3.5, Chloride Level 95L, Carbon Dioxide Level 36H CBC/BMP Laboratory Tests 03/11/19 14:02 03/11/19 14:03 Red Blood Count 3.58 L, Mean Corpuscular Volume 88.0, Mean Corpuscular Hemogl obin 26.5 L, Mean Corpuscular Hemoglobin Concent 30.2 L, Red Cell Distribution Width 18.3 H, Neutrophils (%) (Auto) 77.1 H, Lymphocytes (%) (Auto) 10.9 L, Monocytes (%) (Auto) 9.1 H, Eosinophils (%) (Auto) 1.7, Basophils (%) (Auto) 0.6, Neutrophils # (Auto) 7.5, Lymphocytes # (Auto) 1.1 L, Monocytes # (Auto) 0.9 H, Eosinophils # (Auto) 0.2, Basophils # (Auto) 0.1 03/12/19 06:02 Red Blood Count 3.40 L, Mean Corpuscular Volume 85.0, Mean Corpuscular Hemoglobin 25.6 L, Mean Corpuscular Hemoglobin Concent 30.1 L, Red Cell Distribution Width 18.0 H, Calcium Level 8.3 L Microbiology Microbiology 03/11/19 Blood Culture, Received Pending 03/11/19 Respiratory Virus Panel (PCR) ([facility]ATHY) - Final, Complete 03/11/19 Blood Culture, Received Pending OSCAR WOODS PA-C Mar 12, 2019 08:54 Darshan Woods MD Mar 12, 2019 09:33
[2019-03-12] MEDS ORDERED: FLUBLOK(EGG FREE)(QUAD)INFLUENZA VACC 0.5ML SYRINGE (90682)18YRS&OLDER IM ONE (09:00)
[2019-03-12 10:00] VITALS: BP 141/58
[2019-03-12 14:00] VITALS: BP 128/43
[2019-03-12] MEDS: cefTRIAXone SOD 2 GM in D5W MINI-BAG PLUS 50 ML IV SCH (15:56)
[2019-03-12] MEDS: ACETAMINOPHEN 500 MG TAB PO PRN ×2 (16:21→23:28)
[2019-03-12] MEDS: guaiFENesin ER 600 MG TAB PO PRN ×2 (16:21→21:17)
[2019-03-12 18:00] VITALS: BP 152/48
[2019-03-12] MEDS: LEVEMIR (INSULIN DETEMIR) 1 UNITS/0.01ML SC SCH (21:16)
[2019-03-12] MEDS: ATORVASTATIN 20 MG TAB PO SCH (21:17)
[2019-03-12 22:00] VITALS: BP 148/48
[2019-03-13] MEDS: IPRATROPIUM 0.5MG/ALBUTEROL 2.5MG INH SOL UD 3ML (DUONEB)(J7620) NEB SCH ×4 (01:11→19:42)
[2019-03-13 02:00] VITALS: BP 144/46
[2019-03-13] MEDS: DOXYCYCLINE HYCLATE 100 MG in D5W MINI-BAG PLUS 100 ML IV SCH ×2 (05:35→17:35)
[2019-03-13] MEDS: LEVOTHYROXINE 100MCG TABLET (0.1MG) PO SCH (05:51)
[2019-03-13 06:00] VITALS: BP 143/46
[2019-03-13 06:48] LABS: HEMATOCRIT 28.5 % (36.0-47.0); HEMOGLOBIN 8.7 g/dl (12.0-15.5); MEAN CORPUSCULAR HEMOGLOBIN 26.4 pg (27.0-33.0); MEAN CORPUSCULAR HGB CONC 30.5 g/dl (32.0-36.5); MEAN CORPUSCULAR VOLUME 86.6 fl (80.0-96.0); PLATELET COUNT, AUTOMATED 281 10^3/uL (150-450); RED BLOOD COUNT 3.29 10^6/uL (4.00-5.40); WHITE BLOOD COUNT 15.6 10^3/uL (4.0-10.0)
[2019-03-13 07:20] LABS: CALCIUM LEVEL 8.6 MG/DL (8.8-10.2); CREATININE FOR GFR 1.72 MG/DL (0.55-1.30); GLOMERULAR FILTRATION RATE 30.3 (>32); POTASSIUM SERUM 4.5 MEQ/L (3.5-5.1)
[2019-03-13] MEDS: ASPIRIN 81 MG ENTERIC TAB PO SCH (08:12)
[2019-03-13] MEDS: busPIRone 5 MG TAB PO SCH ×3 (08:13→20:52)
[2019-03-13] MEDS: BUMETANIDE 1 MG TAB PO SCH (08:14)
[2019-03-13] MEDS: guaiFENesin ER 600 MG TAB PO PRN (08:15)
[2019-03-13] MEDS: OMEPRAZOLE 20 MG CAP PO SCH (08:15)
[2019-03-13] MEDS: CALCITRIOL 0.25 MCG CAP (S0169) PO SCH (08:15)
[2019-03-13] MEDS: APIXABAN 5 MG TAB (ELIQUIS) PO SCH (08:16)
[2019-03-13] MEDS: HumaLOG INSULIN (NovoLOG) PER UNIT SC SCH ×4 (08:16→21:31)
[2019-03-13] MEDS: methylPREDNISolone INJ 125 MG/2 ML VIAL (J2930) IV SCH (08:17)
[2019-03-13] MEDS ORDERED: FLUBLOK(EGG FREE)(QUAD)INFLUENZA VACC 0.5ML SYRINGE (90682)18YRS&OLDER IM ONE (09:00)
[2019-03-13] MEDS ORDERED: MOM 30ML SUSPENSION UDC PO PRN (09:45)
[2019-03-13 10:00] VITALS: BP 145/47
[2019-03-13] MEDS: AMIODARONE 200 MG TAB (PACERONE) PO SCH (10:01)
[2019-03-13] MEDS: LOSARTAN 25 MG TAB PO SCH (10:01)
[2019-03-13 14:00] VITALS: BP 158/59
--- NOTE | 2019-03-13 16:22 | IPNPDOC ---
Subjective Date Seen The patient was seen on 03/13/19. Subjective Chief Complaint/HPI improved dyspnea Constitutional: Denies: Chills Eyes: Denies: Pain ENT: Denies: Head Aches Skin: Denies: Rash, Lesions Pulmonary: Reports: Cough; Denies: Dyspnea Cardiovascular: Denies: Chest Pain Gastrointestinal: Denies: Vomiting Objective Physical Examination General Exam: Positive: Alert, No Acute Distress Chest Exam: Positive: Rales, Diminished; Negative: Rhonchi, Wheezing Heart Exam: Positive: Rate Normal, Regular Rhythm Abdomen Exam: Positive: Normal bowel sounds, Soft; Negative: Tenderness Extremity Exam: Negative: Edema Assessment /Plan Problems (1) CAP (community acquired pneumonia) Status: Acute Response to Treatment: Improving Problem Text: D3 doxy/D2 cetriaxone 2 03/13 Tm 100.6 926 1600, but WBC 15.6 (7.5) favor GC effect (1st dose 03/12 9000 03/11 BCX2 NG 03/11 resp PCR - 03/11 CT chest: Mild centrilobular emphysema most pronounced in the mid and upper lung zones. Mixed airspace and interstitial infiltrate with dense foci of consolidation at the right lung base. Finding is new in comparison to the prior examination of 08/01/2017. Differential includes both inflammatory/infectious and neoplastic etiologies. There is bibasilar compressive atelectasis. Follows with Dr. Bermeo as outpatient and should f/u with him regarding CT results to determine if any further wkup required JFW: spoke with Dr Bermeo, aware of [facility] CT, will see after d/c (2) JASPAL (obstructive sleep apnea) Status: Chronic (3) Atrial fibrillation Status: Chronic Response to Treatment: Stable Problem Text: RC on HD dilt 60 TID, ami 200 AC apix 2.5 BID (4) COPD (chronic obstructive pulmonary disease) Status: Chronic Response to Treatment: Stable (5) Diabetes mellitus Status: Chronic Response to Treatment: Stable Problem Text: Blood sugars high on Steroids - expect improvement once weaned (6) CKD (chronic kidney disease), stage III Status: Chronic Response to Treatment: Stable Problem Text: baseline cr ~1.6 03/13 42/1.7, 4.5 (7) Abnormal CT of the chest Status: Acute (8) Anemia Status: Chronic Response to Treatment: Stable Problem Text: baseline hgb ~8.5 03/13 8.6 Plan/VTE VTE Prophylaxis Ordered?: Yes (On eliquis for A-fib) Plan Therapy: PT VS, I&O, 24H, Fishbone Vital Signs/I&O Vital Signs Date Time Temp Pulse Resp B/P (MAP) Pulse Ox O2 Delivery O2 Flow Rate FiO2 03/13/19 14:00 99.1 58 20 158/59 (92) 97 2.5 03/11/19 22:00 Nasal Cannula I&O- Last 24 Hours up to 6 AM 03/13/19 05:59 Intake Total 1590 ml Output Total 1300 ml Balance 290 ml Laboratory Data 24H LABS Laboratory Tests 2 03/12/19 16:45: Bedside Glucose (Misc Panel) 383H 03/12/19 20:59: Bedside Glucose (Misc Panel) 260H 03/13/19 06:13: Nucleated Red Blood Cells % (auto) 0.0, Anion Gap 6L, Glomerular Filtration Rate 30.3L, Blood Urea Nitrogen 42H, Creatinine 1.72H, Sodium Level 133L, Potassium Level 4.5#, Chloride Level 94L, Carbon Dioxide Level 33H, Calcium Level 8.6L 03/13/19 11:34: Bedside Glucose (Misc Panel) 245H CBC/BMP Laboratory Tests 03/13/19 06:13 Red Blood Count 3.29 L, Mean Corpuscular Volume 86.6, Mean Corpuscular Hemoglobin 26.4 L, Mean Corpuscular Hemoglobin Concent 30.5 L, Red Cell Distribution Width 17.9 H, Calcium Level 8.6 L Microbiology Microbiology 03/11/19 Blood Culture - Preliminary, Resulted No Growth after 48 hours. All Specime... 03/11/19 Respiratory Virus Panel (PCR) ([facility]) - Final, Complete 03/11/19 Blood Culture - Preliminary, Resulted No Growth after 48 hours. All Specime... Leroy Rueda M.D. Mar 13, 2019 16:22
[2019-03-13] MEDS: cefTRIAXone SOD 2 GM in D5W MINI-BAG PLUS 50 ML IV SCH (16:56)
[2019-03-13 18:00] VITALS: BP 166/60
[2019-03-13] MEDS: LEVEMIR (INSULIN DETEMIR) 1 UNITS/0.01ML SC SCH (20:52)
[2019-03-13] MEDS: ATORVASTATIN 20 MG TAB PO SCH (20:52)
[2019-03-13] MEDS: APIXABAN 2.5 MG TAB (ELIQUIS) PO SCH (20:52)
[2019-03-13 22:00] VITALS: BP 170/62
[2019-03-14] MEDS: IPRATROPIUM 0.5MG/ALBUTEROL 2.5MG INH SOL UD 3ML (DUONEB)(J7620) NEB PRN ×2 (00:38→15:09)
[2019-03-14] MEDS: IPRATROPIUM 0.5MG/ALBUTEROL 2.5MG INH SOL UD 3ML (DUONEB)(J7620) NEB SCH ×5 (01:03→23:18)
[2019-03-14 02:00] VITALS: BP 150/64
[2019-03-14] MEDS: DOXYCYCLINE HYCLATE 100 MG in D5W MINI-BAG PLUS 100 ML IV SCH ×2 (05:02→17:47)
[2019-03-14] MEDS: LEVOTHYROXINE 100MCG TABLET (0.1MG) PO SCH (05:02)
[2019-03-14 06:00] VITALS: BP 163/55
[2019-03-14 06:57] LABS: HEMOGLOBIN 8.8 g/dl (12.0-15.5); MEAN CORPUSCULAR HEMOGLOBIN 25.7 pg (27.0-33.0); MEAN CORPUSCULAR HGB CONC 30.3 g/dl (32.0-36.5); MEAN CORPUSCULAR VOLUME 84.8 fl (80.0-96.0); PLATELET COUNT, AUTOMATED 321 10^3/uL (150-450); RED BLOOD COUNT 3.42 10^6/uL (4.00-5.40); WHITE BLOOD COUNT 15.3 10^3/uL (4.0-10.0)
[2019-03-14 07:13] LABS: CALCIUM LEVEL 8.7 MG/DL (8.8-10.2); CREATININE FOR GFR 1.75 MG/DL (0.55-1.30); GLOMERULAR FILTRATION RATE 29.7 (>32); POTASSIUM SERUM 4.3 MEQ/L (3.5-5.1)
[2019-03-14] MEDS: CALCITRIOL 0.25 MCG CAP (S0169) PO SCH (08:54)
[2019-03-14] MEDS: HumaLOG INSULIN (NovoLOG) PER UNIT SC SCH ×4 (08:54→20:47)
[2019-03-14] MEDS: AMIODARONE 200 MG TAB (PACERONE) PO SCH (08:55)
[2019-03-14] MEDS: busPIRone 5 MG TAB PO SCH ×3 (08:55→20:48)
[2019-03-14] MEDS: guaiFENesin ER 600 MG TAB PO PRN ×2 (08:55→20:47)
[2019-03-14] MEDS: OMEPRAZOLE 20 MG CAP PO SCH (08:55)
[2019-03-14] MEDS: ASPIRIN 81 MG ENTERIC TAB PO SCH (08:55)
[2019-03-14] MEDS: LOSARTAN 25 MG TAB PO SCH (08:55)
[2019-03-14] MEDS: BUMETANIDE 1 MG TAB PO SCH (08:55)
[2019-03-14] MEDS: methylPREDNISolone INJ 125 MG/2 ML VIAL (J2930) IV SCH (08:55)
[2019-03-14] MEDS: APIXABAN 2.5 MG TAB (ELIQUIS) PO SCH ×2 (08:55→20:47)
[2019-03-14 14:15] VITALS: BP 158/50
[2019-03-14] MEDS: cefTRIAXone SOD 2 GM in D5W MINI-BAG PLUS 50 ML IV SCH (15:39)
[2019-03-14] MEDS: ACETAMINOPHEN 500 MG TAB PO PRN (15:40)
[2019-03-14 15:42] VITALS: BP 174/59
[2019-03-14 19:31] VITALS: O2SAT 97
--- NOTE | 2019-03-14 20:09 | IPNPDOC ---
Subjective Date Seen The patient was seen on 03/14/19. Subjective Chief Complaint/HPI improving dyspnea Constitutional: Denies: Chills Eyes: Denies: Pain ENT: Denies: Head Aches Cardiovascular: Denies: Chest Pain, Palpitations Gastrointestinal: Denies: Nausea, Vomiting Objective Physical Examination General Exam: Positive: Alert, No Acute Distress Chest Exam: Positive: Rales, Diminished; Negative: Rhonchi, Wheezing Heart Exam: Positive: Rate Normal, Regular Rhythm Abdomen Exam: Positive: Normal bowel sounds, Soft; Negative: Tenderness Extremity Exam: Negative: Edema Assessment /Plan Problems (1) CAP (community acquired pneumonia) Status: Acute Response to Treatment: Improving Problem Text: D4 doxy/D3 cetriaxone 2 03/14 Tm 100.6 926 1600, but WBC 15.3 (15.6) favor GC effect (1st dose 03/12 9000) 03/11 BCX2 NG 03/11 resp PCR - 03/11 CT chest: Mild centrilobular emphysema most pronounced in the mid and upper lung zones. Mixed airspace and interstitial infiltrate with dense foci of consolidation at the right lung base. Finding is new in comparison to the prior examination of 08/01/2017. Differential includes both inflammatory/infectious and neoplastic etiologies. There is bibasilar compressive atelectasis. Follows with Dr. Bermeo as outpatient and should f/u with him regarding CT results to determine if any further wkup required JFW: spoke with Dr Bermeo, [facility], will see after d/c (2) JASPAL (obstructive sleep apnea) Status: Chronic (3) Atrial fibrillation Status: Chronic Response to Treatment: Stable Problem Text: RC on HD dilt 40 TID, ami 200 AC apix 2.5 BID 03/14 HR 40-60; thereofore, dilt 60 TID to 40 TID (4) COPD (chronic obstructive pulmonary disease) Status: Chronic Response to Treatment: Stable Problem Text: as per CAP (5) Diabetes mellitus Status: Chronic Response to Treatment: Stable Problem Text: HD glar 28 03/14 AC TID BG 300s; therefore, decreased pred and det 10 to HD 28 (6) CKD (chronic kidney disease), stage III Status: Chronic Response to Treatment: Stable Problem Text: baseline cr ~1.6 03/13 42/1.7, 4.5 (7) Abnormal CT of the chest Status: Acute Problem Text: as per CAP (8) Anemia Status: Chronic Response to Treatment: Stable Problem Text: baseline hgb ~8.5 03/13 8.6 (9) Physical deconditioning Status: Chronic Problem Text: 03/12 safe to dc home per PT Plan/VTE VTE Prophylaxis Ordered?: Yes (On eliquis for A-fib) Plan Therapy: PT VS, I&O, 24H, Fishbone Vital Signs/I&O Vital Signs Date Time Temp Pulse Resp B/P (MAP) Pulse Ox O2 Delivery O2 Flow Rate FiO2 03/14/19 19:31 97 Nasal Cannula 3.0 03/14/19 15:42 98.8 59 20 174/59 (97) I&O- Last 24 Hours up to 6 AM 03/14/19 05:59 Intake Total 1148 ml Output Total 2400 ml Balance -1252 ml Laboratory Data 24H LABS Laboratory Tests 2 03/13/19 21:19: Bedside Glucose (Misc Panel) 337H 03/14/19 06:15: Nucleated Red Blood Cells % (auto) 0.0, Anion Gap 5L, Glomerular Filtration Rate 29.7L, Blood Urea Nitrogen 40H, Creatinine 1.75H, Sodium Level 136, Potassium Level 4.3, Chloride Level 94L, Carbon Dioxide Level 37H, Calcium Level 8.7L 03/14/19 12:27: Bedside Glucose (Misc Panel) 317H 03/14/19 17:06: Bedside Glucose (Misc Panel) 342H CBC/BMP Laboratory Tests 03/14/19 06:15 Red Blood Count 3.42 L, Mean Corpuscular Volume 84.8, Mean Corpuscular Hemoglobin 25.7 L, Mean Corpuscular Hemoglobin Concent 30.3 L, Red Cell Distribution Width 17.9 H, Calcium Level 8.7 L Microbiology Microbiology 03/11/19 Blood Culture - Preliminary, Resulted No Growth after 72 hours. All specime... 03/11/19 Respiratory Virus Panel (PCR) ([facility]) - Final, Complete 03/11/19 Blood Culture - Preliminary, Resulted No Growth after 72 hours. All specime... Leroy Rueda M.D. Mar 14, 2019 20:09
[2019-03-14] MEDS: SENNA 8.6 MG TAB (SENOKOT) PO PRN (20:47)
[2019-03-14] MEDS: LEVEMIR (INSULIN DETEMIR) 1 UNITS/0.01ML SC SCH (20:47)
[2019-03-14] MEDS: ATORVASTATIN 20 MG TAB PO SCH (20:48)
[2019-03-14 22:00] VITALS: BP 160/61
[2019-03-15] MEDS: IPRATROPIUM 0.5MG/ALBUTEROL 2.5MG INH SOL UD 3ML (DUONEB)(J7620) NEB SCH ×5 (01:48→23:39)
[2019-03-15 02:00] VITALS: BP 152/64
[2019-03-15] MEDS: LEVOTHYROXINE 100MCG TABLET (0.1MG) PO SCH (05:36)
[2019-03-15] MEDS: DOXYCYCLINE HYCLATE 100 MG in D5W MINI-BAG PLUS 100 ML IV SCH ×2 (05:37→18:43)
[2019-03-15 06:00] VITALS: BP 181/75
[2019-03-15 06:43] LABS: HEMOGLOBIN 8.8 g/dl (12.0-15.5); MEAN CORPUSCULAR HEMOGLOBIN 25.7 pg (27.0-33.0); MEAN CORPUSCULAR HGB CONC 30.3 g/dl (32.0-36.5); MEAN CORPUSCULAR VOLUME 84.8 fl (80.0-96.0); PLATELET COUNT, AUTOMATED 329 10^3/uL (150-450); RED BLOOD COUNT 3.42 10^6/uL (4.00-5.40); WHITE BLOOD COUNT 12.8 10^3/uL (4.0-10.0)
[2019-03-15 07:13] LABS: CALCIUM LEVEL 8.7 MG/DL (8.8-10.2); CREATININE FOR GFR 1.41 MG/DL (0.55-1.30); GLOMERULAR FILTRATION RATE 38.1 (>32); POTASSIUM SERUM 4.3 MEQ/L (3.5-5.1)
[2019-03-15] MEDS: HumaLOG INSULIN (NovoLOG) PER UNIT SC SCH ×4 (08:31→20:59)
[2019-03-15] MEDS: BUMETANIDE 1 MG TAB PO SCH (08:32)
[2019-03-15] MEDS: methylPREDNISolone INJ 125 MG/2 ML VIAL (J2930) IV SCH (08:33)
[2019-03-15] MEDS: ASPIRIN 81 MG ENTERIC TAB PO SCH (08:33)
[2019-03-15] MEDS: busPIRone 5 MG TAB PO SCH ×3 (08:33→20:59)
[2019-03-15] MEDS: OMEPRAZOLE 20 MG CAP PO SCH (08:33)
[2019-03-15] MEDS: APIXABAN 2.5 MG TAB (ELIQUIS) PO SCH ×2 (08:33→20:59)
[2019-03-15] MEDS: AMIODARONE 200 MG TAB (PACERONE) PO SCH (08:34)
[2019-03-15] MEDS: CALCITRIOL 0.25 MCG CAP (S0169) PO SCH (08:34)
[2019-03-15] MEDS: LOSARTAN 25 MG TAB PO SCH (08:34)
[2019-03-15 10:00] VITALS: BP 181/74
--- NOTE | 2019-03-15 11:08 | IPNPDOC ---
Subjective Date Seen The patient was seen on 03/15/19. Subjective Chief Complaint/HPI Denies c/o. has been hypertensive. Diuretics on hold. Events since last encounter States feel close to baseline. Cleared PT, on home oxygen use. Pulmonary: Reports: Dyspnea (chronic) Cardiovascular: Denies: Chest Pain, Palpitations, Orthopnea, Paroxysmal Noc. Dyspnea, Lt Headedness Gastrointestinal: Denies: Nausea, Vomiting, Abdominal Pain, Diarrhea, Constip ation Genitourinary: Denies: Dysuria, Frequency, Incontinence, Retention Objective Physical Examination General Exam: Positive: Alert, No Acute Distress Chest Exam: Positive: Rales, Diminished; Negative: Rhonchi, Wheezing Heart Exam: Positive: Rate Normal, Regular Rhythm Abdomen Exam: Positive: Normal bowel sounds, Soft; Negative: Tenderness Extremity Exam: Negative: Edema Assessment /Plan Problems (1) CAP (community acquired pneumonia) Status: Acute Response to Treatment: Improving Problem Text: D5 doxy/D4 cetriaxone 2 03/15/19: improving and near baseline. Anticipate DC home in am. 03/14 Tm 100.6 926 1600, but WBC 15.3 (15.6) favor GC effect (1st dose 03/12 9000) 03/11 BCX2 NG 03/11 resp PCR - 03/11 CT chest: Mild centrilobular emphysema most pronounced in the mid and upper lung zones. Mixed airspace and interstitial infiltrate with dense foci of consolidation at the right lung base. Finding is new in comparison to the prior examination of 08/01/2017. Differential includes both inflammatory/infectious and neoplastic etiologies. There is bibasilar compressive atelectasis. Follows with Dr. Bermeo as outpatient and should f/u with him regarding CT results to determine if any further wkup required JFW: spoke with Dr Bermeo, aware of abn CT, will see after d/c (2) Atrial fibrillation Status: Chronic Response to Treatment: Stable Problem Text: 03/15/19: Return to Cardizem ER 180mg. monitor BP 03/14 HR 40-60; thereofore, dilt 60 TID to 40 TID RC on HD dilt 40 TID, ami 200 AC apix 2.5 BID (3) COPD (chronic obstructive pulmonary disease) Status: Chronic Response to Treatment: Stable Problem Text: as per CAP (4) Hypertensive kidney disease Problem Text: Her pressures have been running higher for a few days, but she has also been off of her diuretics. We started her back on her spironolactone today. (5) CKD (chronic kidney disease), stage III Status: Chronic Response to Treatment: Stable Problem Text: baseline cr ~1.6 03/13 42/1.7, 4.5 (6) JASPAL (obstructive sleep apnea) Status: Chronic (7) Diabetes mellitus Status: Chronic Response to Treatment: Stable Problem Text: HD glar 03/14 AC TID BG 300s; therefore, decreased pred and det 10 to HD 28 (8) Abnormal CT of the chest Status: Acute Problem Text: as per CAP (9) Anemia Status: Chronic Response to Treatment: Stable Problem Text: baseline hgb ~8.5 03/13 8.6 (10) Physical deconditioning Status: Chronic Problem Text: 03/12 safe to dc home per PT Plan/VTE VTE Prophylaxis Ordered?: Yes (On eliquis for A-fib) Plan Therapy: PT Family Medicine Attending Note: I saw and examined Ms. Calderon, discussed with ANJANA Key. Agree with her note as documented. We're restarting the patient's spironolactone today. We will need to monitor her kidney function. Additionally, since her bradycardia did not seem to improve with an adjustment of her diltiazem from 180mg ER to 60mg three times a day we put her back on her home medication. She is asymptomatic with regards to the bradycardia. She will likely be dischargeable with within the next 1-2 days. 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, I&O, 24H, Fishbone Vital Signs/I&O Vital Signs Date Time Temp Pulse Resp B/P (MAP) Pulse Ox O2 Delivery O2 Flow Rate FiO2 03/15/19 10:00 98.6 61 18 181/74 (109) 98 2.5 03/15/19 01:48 Nasal Cannula I&O- Last 24 Hours up to 6 AM 03/15/19 06:00 Intake Total 590 ml Output Total 1300 ml Balance -710 ml Laboratory Data 24H LABS Laboratory Tests 2 03/14/19 12:27: Bedside Glucose (Misc Panel) 317H 03/14/19 17:06: Bedside Glucose (Misc Panel) 342H 03/14/19 20:34: Bedside Glucose (Misc Panel) 288H 03/15/19 06:09: Nucleated Red Blood Cells % (auto) 0.0, Anion Gap 4L, Glomerular Filtration Rate 38.1, Blood Urea Nitrogen 46H, Creatinine 1.41H, Sodium Level 137, Potassium Level 4.3, Chloride Level 95L, Carbon Dioxide Level 38H, Calcium Level 8.7L CBC/BMP Laboratory Tests 03/15/19 06:09 Red Blood Count 3.42 L, Mean Corpuscular Volume 84.8, Mean Corpuscular Hemoglobin 25.7 L, Mean Corpuscular Hemoglobin Concent 30.3 L, Red Cell Dis tribution Width 17.8 H, Calcium Level 8.7 L Microbiology Microbiology 03/11/19 Blood Culture - Preliminary, Resulted No Growth after 72 hours. All specime... 03/11/19 Respiratory Virus Panel (PCR) ([facility]) - Final, Complete 03/11/19 Blood Culture - Preliminary, Resulted No Growth after 72 hours. All specime... Karla Garcia Mar 15, 2019 11:08 am Toni Lewis MD Mar 15, 2019 7:03 pm
[2019-03-15] MEDS: SPIRONOLACTONE 25 MG TAB PO SCH (12:13)
[2019-03-15 14:00] VITALS: BP 179/61
[2019-03-15] MEDS: ACETAMINOPHEN 500 MG TAB PO PRN (14:13)
[2019-03-15] MEDS: cefTRIAXone SOD 2 GM in D5W MINI-BAG PLUS 50 ML IV SCH (16:56)
[2019-03-15 18:00] VITALS: BP 171/63
[2019-03-15 20:00] VITALS: BP 166/63
[2019-03-15] MEDS: LEVEMIR (INSULIN DETEMIR) 1 UNITS/0.01ML SC SCH (20:59)
[2019-03-15] MEDS: ATORVASTATIN 20 MG TAB PO SCH (20:59)
[2019-03-16 02:00] VITALS: BP 159/58
[2019-03-16 04:00] VITALS: BP 153/65
[2019-03-16] MEDS: IPRATROPIUM 0.5MG/ALBUTEROL 2.5MG INH SOL UD 3ML (DUONEB)(J7620) NEB PRN ×2 (04:31→11:12)
[2019-03-16] MEDS: LEVOTHYROXINE 100MCG TABLET (0.1MG) PO SCH (06:18)
[2019-03-16] MEDS: DOXYCYCLINE HYCLATE 100 MG in D5W MINI-BAG PLUS 100 ML IV SCH (06:18)
[2019-03-16 07:04] LABS: HEMATOCRIT 31.6 % (36.0-47.0); HEMOGLOBIN 9.5 g/dl (12.0-15.5); MEAN CORPUSCULAR HEMOGLOBIN 26.2 pg (27.0-33.0); MEAN CORPUSCULAR HGB CONC 30.1 g/dl (32.0-36.5); MEAN CORPUSCULAR VOLUME 87.1 fl (80.0-96.0); PLATELET COUNT, AUTOMATED 349 10^3/uL (150-450); RED BLOOD COUNT 3.63 10^6/uL (4.00-5.40); WHITE BLOOD COUNT 13.1 10^3/uL (4.0-10.0)
[2019-03-16 07:29] LABS: CALCIUM LEVEL 8.8 MG/DL (8.8-10.2); CREATININE FOR GFR 1.48 MG/DL (0.55-1.30)
[2019-03-16] MEDS: IPRATROPIUM 0.5MG/ALBUTEROL 2.5MG INH SOL UD 3ML (DUONEB)(J7620) NEB SCH ×3 (07:33→11:13)
[2019-03-16] MEDS: methylPREDNISolone INJ 125 MG/2 ML VIAL (J2930) IV SCH (08:08)
[2019-03-16] MEDS: HumaLOG INSULIN (NovoLOG) PER UNIT SC SCH (08:08)
[2019-03-16] MEDS: busPIRone 5 MG TAB PO SCH (08:09)
[2019-03-16] MEDS: BUMETANIDE 1 MG TAB PO SCH (08:09)
[2019-03-16] MEDS: ACETAMINOPHEN 500 MG TAB PO PRN (08:09)
[2019-03-16] MEDS: ASPIRIN 81 MG ENTERIC TAB PO SCH (08:09)
[2019-03-16 08:10] VITALS: BP 153/65
[2019-03-16] MEDS: AMIODARONE 200 MG TAB (PACERONE) PO SCH (08:10)
[2019-03-16] MEDS: SPIRONOLACTONE 25 MG TAB PO SCH (08:10)
[2019-03-16] MEDS: LOSARTAN 25 MG TAB PO SCH (08:10)
[2019-03-16] MEDS: OMEPRAZOLE 20 MG CAP PO SCH (08:10)
[2019-03-16] MEDS: APIXABAN 2.5 MG TAB (ELIQUIS) PO SCH (08:10)
[2019-03-16] MEDS: CALCITRIOL 0.25 MCG CAP (S0169) PO SCH (08:10)
[2019-03-16] MEDS ORDERED: diltiaZEM **CD** 180 MG CAP PO SCH (09:00)
[2019-03-16 10:00] VITALS: BP 169/57
[2019-03-16] MEDS ORDERED: PRED20TA PO (10:36)
[2019-03-16] MEDS ORDERED: DOXY100C PO (10:36)
[2019-03-16] MEDS ORDERED: CEFD300CAP PO (10:42)
--- NOTE | 2019-03-16 11:22 | DSES ---
DATE OF ADMISSION: 03/11/2019 DATE OF DISCHARGE: 03/15/2019 PRIMARY CARE PROVIDER: David Pollack MD ATTENDING PHYSICIAN: Darshan Woods MD HISTORY OF PRESENT ILLNESS: This is an 83-year-old female with past medical history significant for chronic obstructive pulmonary disease (COPD) requiring multiple hospitalizations due to exacerbations and pneumonia, presented to [facility] Emergency Department (ED) for complaints of a cough, purulent sputum, shortness of breath for 3-4 days. She was noticed to have a right-sided infiltrate on imaging. HOSPITAL COURSE: The patient was placed on Rocephin and doxycycline, as well as Solu-Medrol intravenous (IV). She tolerated them well. The patient did have a CT scan, which did show enlargement of the central pulmonary arteries. There was an area on the CT scan which stated a mixed air space and interstitial infiltrate with dense foci of consolidation at the right lung base. These findings were new in comparison, and the differential includes inflammatory versus infectious and neoplastic etiologies. Recommended followup treatment and further evaluation with positron emission tomography (PET) scan may be necessary. This was discussed with Dr. Bermeo. He is aware of the abnormal CT scan and would like to see the patient upon discharge from hospital. The patient slowly progressed and has passed physical therapy evaluation and is anxious to return to home. The patient did have some elevated blood pressures. This was secondary to a change in her medications. Her diuretic medication was held, and her Cardizem was given as short-acting. When she was transitioned back to her Cardizem extended-release tablet and spironolactone was added back on, the patient's blood pressure remained stable. IMAGING: CT chest as already stated and chest x-ray were completed. CONSULTATIONS: None. PROCEDURES: None. On physical examination today, vital signs are stable. She is afebrile. HEENT: Neck is supple without lymphadenopathy or jugular venous distention (JVD). Cardiovascular: Heart rate and rhythm are regular. Pulmonary: Lungs are diminished bibasilar. Otherwise, clear. Abdomen: Is soft and nontender. ASSESSMENT: 1. Right-sided infiltrate with consolidation. 2. Questionable neoplastic process to the right lung. 3. Chronic obstructive pulmonary disease. 4. Obstructive sleep apnea (JASPAL). 5. Diabetes. 6. Hypertension. 7. Congestive heart failure (CHF). 8. Atrial fibrillation. PLAN: The patient will be discharged home. She will followup with primary care provider within the next 5-7 days. Diet is [id number], carbohydrate-consistent. Activity is as tolerated. The patient also needs to followup with pulmonary within the next 2 weeks to review her CT scan MEDICATIONS: Are as follows: - cefdinir 300 mg one by mouth twice a day for 7 days - doxycycline hyclate 100 mg by mouth twice a day for 7 days - prednisone 20 mg by mouth daily for 5 days - albuterol sulfate nebulizer every 4 hours as needed for shortness of breath - amiodarone 200 mg by mouth daily - Eliquis 2.5 mg by mouth twice a day - aspirin 81 mg enteric-coated by mouth daily - atorvastatin 80 mg tablet, 1/2 tablet by mouth nightly - bumetanide 4 mg by mouth daily - buspirone 10 mg by mouth three times a day - calcitriol 0.25 mcg by mouth daily - calcium with vitamin D one tablet by mouth daily - diltiazem ER 180 mg by mouth daily - iron supplement one capsule by mouth daily - formoterol fumarate 20 mcg via inhalation twice a day - insulin Lantus SoloStar 28 units subcutaneous nightly - levothyroxine sodium 100 mcg by mouth daily - losartan potassium 25 mg by mouth daily - meclizine 25 mg by mouth three times a day as needed dizziness - Nitrostat 0.4 mg sublingually as needed angina - omeprazole 20 mg by mouth daily - senna two tablets by mouth nightly as needed constipation The patient is discharged in stable and satisfactory condition with no further questions at time of discharge. ADDENDUM: Under discharge diagnoses please add chronic diastolic congestive heart failure. New diagnosis in list is chronic hypoxic respiratory failure on 2-1/2 liters of oxygen chronically at home. Addendum dictated: 03/16/2019 1045 Addendum transcribed: 03/16/2019 1116 trixie [place]
[2019-03-17] MEDS ORDERED: DOXY100T2 PO (16:40)
[2019-03-17] MEDS ORDERED: CEFD1CAP8 PO (16:40)
[2019-03-17] MEDS ORDERED: PRED20TA PO (16:40)
== END 2019-03-16 12:25 | disposition home health service (06) | DRG 194 ==
LOC: EDBD 13:38 → M ED 13:38 → M ED INP 17:26 → M MS5PR 23:00
PROVIDERS: ADMIT Family Medicine; ATTEND Family Medicine
DX: J18.9 Pneumonia, unspecified organism (principal); I50.32 Chronic diastolic (congestive) heart failure; I13.0 Hypertensive heart and chronic kidney disease with heart failure and stage 1 through stage 4 chronic kidney disease, or unspecified chronic kidney disease; J96.11 Chronic respiratory failure with hypoxia; J44.0 Chronic obstructive pulmonary disease with (acute) lower respiratory infection; I48.20 Chronic atrial fibrillation, unspecified; I25.10 Atherosclerotic heart disease of native coronary artery without angina pectoris; E78.2 Mixed hyperlipidemia; R42 Dizziness and giddiness; J44.9 Chronic obstructive pulmonary disease, unspecified; I27.81 Cor pulmonale (chronic); E11.9 Type 2 diabetes mellitus without complications; M16.0 Bilateral primary osteoarthritis of hip; M51.36 Other intervertebral disc degeneration, lumbar region; M50.30 Other cervical disc degeneration, unspecified cervical region; G47.33 Obstructive sleep apnea (adult) (pediatric); D50.9 Iron deficiency anemia, unspecified; I27.20 Pulmonary hypertension, unspecified; I35.0 Nonrheumatic aortic (valve) stenosis; E03.2 Hypothyroidism due to medicaments and other exogenous substances; N18.3 Chronic kidney disease, stage 3 (moderate); Z95.5 Presence of coronary angioplasty implant and graft; Z90.49 Acquired absence of other specified parts of digestive tract; Z86.010 Personal history of colon polyps; Z87.891 Personal history of nicotine dependence; Z99.81 Dependence on supplemental oxygen; Z79.899 Other long term (current) drug therapy; Z79.4 Long term (current) use of insulin; Z79.82 Long term (current) use of aspirin; Z79.01 Long term (current) use of anticoagulants; Z79.52 Long term (current) use of systemic steroids; Z88.0 Allergy status to penicillin; Z88.1 Allergy status to other antibiotic agents; Z88.8 Allergy status to other drugs, medicaments and biological substances; Z88.6 Allergy status to analgesic agent

== ENCOUNTER 2019-03-17 10:38 | Inpatient (IN) | payer MEDICARE, BC, OTHER ==
[~2019-03-17] VITALS: Ht 160 cm; Wt 79.0 kg
[~2019-03-17 10:38] MED LIST changes: +ALBU83IN INH; +BUME2TAB3 PO; +CALC1CAP31 PO; +CEFD300CAP PO; +FERRO SEQUELS PO; +MECL-86 PO; +PERF20NE2 INH; +VIAC1CHW PO
[2019-03-17] MEDS ORDERED: NS 1,000 ML IV SCH (10:43)
[2019-03-17 11:18] LABS: BASO # 0.1 10^3/uL (0.0-0.2); BASO % 0.3 % (0.0-1.0); EOS # 0.2 10^3/uL (0.0-0.5); EOS % 1.3 % (0.0-3.0); HEMATOCRIT 35.7 % (36.0-47.0); HEMOGLOBIN 10.9 g/dl (12.0-15.5); LYMPH # 1.6 10^3/uL (1.5-5.0); LYMPH % 10.3 % (24.0-44.0); MEAN CORPUSCULAR HEMOGLOBIN 26.1 pg (27.0-33.0); MEAN CORPUSCULAR HGB CONC 30.5 g/dl (32.0-36.5); MEAN CORPUSCULAR VOLUME 85.6 fl (80.0-96.0); MONO # 1.2 10^3/uL (0.0-0.8); MONO % 7.5 % (0.0-5.0); NEUTROPHILS # 12.3 10^3/uL (1.5-8.5); NEUTROPHILS % 78.2 % (36.0-66.0); PLATELET COUNT, AUTOMATED 410 10^3/uL (150-450); RED BLOOD COUNT 4.17 10^6/uL (4.00-5.40); WHITE BLOOD COUNT 15.7 10^3/uL (4.0-10.0)
[2019-03-17 11:29] LABS: INR 1.12; PROTHROMBIN TIME 14.2 SECONDS (11.8-14.0)
[2019-03-17 11:40] LABS: ALBUMIN 3.3 GM/DL (3.2-5.2); BILIRUBIN,DIRECT 0.2 MG/DL (0.0-0.2); BILIRUBIN,TOTAL 0.6 MG/DL (0.2-1.0); CK-MB VALUE MASS 1.8 NG/ML (<3.6); MB/CK RELATIVE INDEX 3.91 (< OR =4); TOTAL PROTEIN 7.2 GM/DL (6.4-8.2); TROPONIN I 0.03 NG/ML (< 0.10)
[2019-03-17] MEDS ORDERED: ACETAMINOPHEN 325 MG TAB PO ONE (12:15)
[2019-03-17 12:23] LABS: CALCIUM LEVEL 9.3 MG/DL (8.8-10.2); CREATININE FOR GFR 1.37 MG/DL (0.55-1.30); GLOMERULAR FILTRATION RATE 39.4 (>32)
[2019-03-17] MEDS ORDERED: ISOVUE-370 76% 100ML VIAL (Q9967) As Ordered ONE (12:51)
[2019-03-17] MEDS ORDERED: IPRATROPIUM 0.5MG/ALBUTEROL 2.5MG INH SOL UD 3ML (DUONEB)(J7620) NEB ONE (13:45)
--- NOTE | 2019-03-17 15:36 | REP ---
CT ABDOMEN AND PELVIS WITH IV CONTRAST: TECHNIQUE: Axial contrast enhanced images from the lung bases to the pubic symphysis using 100 mL Isovue 370 intravenous contrast material with multiplanar reformations. Visualized lung bases demonstrate chronic fibrotic changes. The infiltrate seen in the right lower lobe on the CT of the chest 03/11/2019 has improved with mid residual. There is a small hiatal hernia. The liver demonstrates no mass. The patient has had a prior cholecystectomy. I do not see evidence of significantly biliary dilatation. The spleen, adrenals and pancreas are grossly unremarkable. There is extensive fatty replacement of the pancreas particularly in the region of the pancreatic head. There is no hydronephrosis bilaterally. There is left renal atrophy with a small cyst anteriorly. There is mild ectasia of the distal abdominal aorta without aneurysm. There is no adenopathy. There is no free air. There is extensive sigmoid diverticulosis with thickening of the sigmoid colon and pericolonic inflammatory stranding compatible with sigmoid diverticulitis. There is mild free fluid in the pelvis. The urinary bladder is mildly distended and grossly unremarkable. There are degenerative changes of the spine. Small supraumbilical midline hernia contains noninflamed fat. IMPRESSION: Sigmoid diverticulitis. Mild free fluid in the pelvis. No free air. Previously noted right lower lobe infiltrate is improved with mild residual. Small supraumbilical hernia contains noninflamed fat. Electronically Signed by Alex Ace MD 03/18/2019 05:34 P
[2019-03-17] MEDS ORDERED: CEFD1CAP8 PO (16:40)
[2019-03-17] MEDS ORDERED: PRED20TA PO (16:40)
[2019-03-17] MEDS ORDERED: DOXY100T2 PO (16:40)
[2019-03-17] MEDS ORDERED: MECLIZINE 25 MG TABLET PO PRN (17:15)
[2019-03-17] MEDS ORDERED: GLUCOSE 4 GM CHEW TABLET PO PRN (17:15)
[2019-03-17] MEDS ORDERED: DEXTROSE 50% 50 ML SYRINGE IV PRN (17:15)
[2019-03-17] MEDS ORDERED: GLUCAGON FOR INJ 1 MG VIAL (J1610) SC PRN (17:15)
--- NOTE | 2019-03-17 17:44 | HPE ---
DATE OF ADMISSION: 03/17/2019 PRIMARY CARE PROVIDER: Dr. David Pollack CHIEF COMPLAINT: Sigmoid diverticulitis. HISTORY: Miranda Arce is an 83-year-old with severe chronic obstructive pulmonary disease (COPD), who was just discharged from the hospital yesterday, when she was admitted with a COPD exacerbation with pneumonia. She felt well on discharge. Last night she started to have rectal pain and more abdominal pain this morning. She came to the emergency room (ER). CT scan shows diverticulitis with some free fluid. Also notes that her pneumonia was radiographically improved/resolving. She is being admitted for treatment of diverticulitis. Her history and physical were generated in the office-based electric health record, and a copy will be placed in her chart.
[2019-03-17] MEDS: HumaLOG INSULIN (NovoLOG) PER UNIT SC SCH ×2 (18:13→21:20)
[2019-03-17 18:20] VITALS: BP 174/62
[2019-03-17] MEDS: metroNIDAZOLE 500 MG in IV 1 EA IV SCH (18:34)
[2019-03-17] MEDS: IPRATROPIUM 0.5MG/ALBUTEROL 2.5MG INH SOL UD 3ML (DUONEB)(J7620) NEB SCH (19:02)
--- NOTE | 2019-03-17 20:44 | ECGEPIP ---
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
[2019-03-17] MEDS: busPIRone 10 MG TAB PO SCH (21:19)
[2019-03-17] MEDS: CIPROFLOXACIN 400 MG in IV 1 EA IV SCH (21:19)
[2019-03-17] MEDS: ATORVASTATIN 20 MG TAB PO SCH (21:19)
[2019-03-17] MEDS: APIXABAN 2.5 MG TAB (ELIQUIS) PO SCH (21:19)
[2019-03-17 22:00] VITALS: BP 162/70
[2019-03-18] VITALS (9 sets, daily range): BP systolic 120–172; BP diastolic 48–70
[2019-03-18] MEDS: IPRATROPIUM 0.5MG/ALBUTEROL 2.5MG INH SOL UD 3ML (DUONEB)(J7620) NEB SCH ×4 (01:37→19:44)
[2019-03-18] MEDS: metroNIDAZOLE 500 MG in IV 1 EA IV SCH ×3 (02:53→19:55)
[2019-03-18] MEDS: LEVOTHYROXINE 100MCG TABLET (0.1MG) PO SCH (05:40)
[2019-03-18 05:52] LABS: BASO # 0.1 10^3/uL (0.0-0.2); BASO % 0.4 % (0.0-1.0); EOS # 0.3 10^3/uL (0.0-0.5); HEMATOCRIT 30.9 % (36.0-47.0); HEMOGLOBIN 9.2 g/dl (12.0-15.5); LYMPH # 1.9 10^3/uL (1.5-5.0); LYMPH % 15.6 % (24.0-44.0); MEAN CORPUSCULAR HEMOGLOBIN 25.9 pg (27.0-33.0); MEAN CORPUSCULAR HGB CONC 29.8 g/dl (32.0-36.5); MONO # 1.1 10^3/uL (0.0-0.8); MONO % 8.7 % (0.0-5.0); NEUTROPHILS # 8.7 10^3/uL (1.5-8.5); NEUTROPHILS % 70.2 % (36.0-66.0); PLATELET COUNT, AUTOMATED 340 10^3/uL (150-450); RED BLOOD COUNT 3.55 10^6/uL (4.00-5.40); WHITE BLOOD COUNT 12.4 10^3/uL (4.0-10.0)
[2019-03-18 06:17] LABS: CALCIUM LEVEL 8.6 MG/DL (8.8-10.2); CREATININE FOR GFR 1.4 MG/DL (0.55-1.30); GLOMERULAR FILTRATION RATE 38.4 (>32); POTASSIUM SERUM 3.9 MEQ/L (3.5-5.1)
[2019-03-18] MEDS: IPRATROPIUM 0.5MG/ALBUTEROL 2.5MG INH SOL UD 3ML (DUONEB)(J7620) NEB PRN ×4 (07:46→22:39)
[2019-03-18] MEDS: AMIODARONE 200 MG TAB (PACERONE) PO SCH (08:54)
[2019-03-18] MEDS: HumaLOG INSULIN (NovoLOG) PER UNIT SC SCH ×4 (08:54→21:08)
[2019-03-18] MEDS: busPIRone 10 MG TAB PO SCH ×3 (08:54→21:08)
[2019-03-18] MEDS: CALCITRIOL 0.25 MCG CAP (S0169) PO SCH (08:54)
[2019-03-18] MEDS: predniSONE 20 MG TAB PO SCH (08:54)
[2019-03-18] MEDS: APIXABAN 2.5 MG TAB (ELIQUIS) PO SCH ×2 (08:54→21:08)
[2019-03-18] MEDS: OMEPRAZOLE 20 MG CAP PO SCH (08:54)
[2019-03-18] MEDS: ASPIRIN 81 MG ENTERIC TAB PO SCH (08:54)
[2019-03-18] MEDS: LOSARTAN 25 MG TAB PO SCH (08:55)
[2019-03-18] MEDS: diltiaZEM **CD** 180 MG CAP PO SCH (08:56)
--- NOTE | 2019-03-18 09:18 | IPNPDOC ---
Subjective Date Seen The patient was seen on 03/18/19. Subjective Chief Complaint/HPI abdominal pain, diverticulitis Events since last encounter Admitted 03/17/19 for diverticulitis. States abdominal pain is mildly improved. denies n/v/d. Constitutional: Denies: Chills, Fever, Night Sweats Skin: Denies: Rash, Lesions, Breakdown Pulmonary: Reports: Dyspnea (chronic at baseline); Denies: Cough Cardiovascular: Denies: Chest Pain, Palpitations, Orthopnea, Paroxysmal Noc. Dyspnea, Lt Headedness Gastrointestinal: Reports: Abdominal Pain (BLQ); Denies: Nausea, Vomiting, Diarrhea, Constipation Psych: Reports: Mood Normal; Denies: Depression, Memory Issues Objective Physical Examination General Exam: Positive: Alert, No Acute Distress Eye Exam: Positive: PERRLA, Conjunctiva & lids normal, EOMI; Negative: Sclera icteric Neck Exam: Positive: Supple; Negative: JVD, thyromegaly Chest Exam: Positive: Clear to auscultation, Normal air movement Heart Exam: Positive: Rate Normal, Regular Rhythm, Normal S1, Normal S2, Murmurs (blowing systolic murmur); Negative: Rubs Abdomen Exam: Positive: Normal bowel sounds, Soft; Negative: Tenderness, Hepatospenomegaly Psych Exam: Positive: Mental status NL, Mood NL, Oriented x 3 Assessment /Plan Problems (1) Sigmoid diverticulitis Status: Acute Problem Text: Cipro and Flagyl day #2 (2) Mass of left lung Status: Acute Problem Text: to f/u with pulm for repeat CT and review. (3) Community acquired pneumonia Status: Resolved Problem Text: showing resolve on CXR (4) COPD (chronic obstructive pulmonary disease) Status: Chronic Response to Treatment: Stable Problem Text: On 2-3LNC at baseline (5) Atrial fibrillation Status: Chronic Response to Treatment: Stable Problem Text: rate controlled. anti-coagulated with Apixaban (6) Obstructive sleep apnea Status: Chronic Response to Treatment: Stable (7) Hypothyroidism Status: Chronic Response to Treatment: Stable (8) Iron deficiency anemia Status: Chronic Response to Treatment: Stable (9) CKD (chronic kidney disease) stage 3, GFR 30-59 ml/min Status: Chronic Response to Treatment: Stable Problem Text: Cr 1.4. at baseline (10) Hypertension Status: Chronic Response to Treatment: Stable (11) Diabetes mellitus Status: Chronic Response to Treatment: Stable Plan/VTE VTE Prophylaxis Ordered?: Yes VS, I&O, 24H, [facility] Vital Signs/I&O Vital Signs Date Time Temp Pulse Resp B/P (MAP) Pulse Ox O2 Delivery O2 Flow Rate FiO2 03/18/19 08:56 158/66 03/18/19 08:20 98.6 58 16 97 3.0 03/18/19 04:39 Nasal Cannula I&O- Last 24 Hours up to 6 AM0 03/18/19 06:00 Intake Total 4050 ml Output Total 0 ml Balance 4050 ml Laboratory Data 24H LABS Laboratory Tests 2 03/17/19 10:56: Immature Granulocyte % (Auto) 2.4, White Blood Count 15.7H, Red Blood Count 4.17, Hemoglobin 10.9L, Hematocrit 35.7L, Mean Corpuscular Volume 85.6, Mean Corpuscular Hemoglobin 26.1L, Mean Corpuscular Hemoglobin Concent 30.5L, Red Cell Distribution Width 18.2H, Platelet Count 410, Neutrophils (%) (Auto) 78.2H, Lymphocytes (%) (Auto) 10.3L, Monocytes (%) (Auto) 7.5H, Eosinophils (%) (Auto) 1.3, Basophils (%) (Auto) 0.3, Neutrophils # (Auto) 12.3H, Lymphocytes # (Auto) 1.6, Monocytes # (Auto) 1.2H, Eosinophils # (Auto) 0.2, Basophils # (Auto) 0.1, Nucleated Red Blood Cells % (auto) 0.1H, Prothrombin Time 14.2H, Prothromb Time International Ratio 1.12, Anion Gap 6L, Glomerular Filtration Rate 39.4, Lactic Acid Level 1.2, Calcium Level 9.3, Aspartate Amino Transf (AST/SGOT) 19, Alanine Aminotransferase (ALT/SGPT) 32, Alkaline Phosphatase 85, Total Bilirubin 0.6, Direct Bilirubin 0.2, Total Creatine Kinase 46, Creatine Kinase MB 1.8, Creatine Kinase MB Relative Index 3.91, Troponin I 0.03, Total Protein 7.2, Albumin 3.3, Albumin/Globulin Ratio 0.85L, Lipase 108 03/17/19 10:58: POC Glucose (Misc Panel) 109H, POC Sodium (Misc Panel) 138, POC Potassium (Misc Panel) 4.0, POC Chloride (Misc Panel) 89L, POC Total CO2 (Misc Panel) 41.0H, POC Blood Urea Nitrogen (Misc Panel 38H, POC Ionized Calcium (Misc Panel) 4.3L, POC Creatinine (Misc Panel) 1.5H, POC Hematocrit (Misc Panel) 37.0L 03/17/19 18:01: Bedside Glucose (Misc Panel) 256H 03/17/19 20:45: Bedside Glucose (Misc Panel) 268H 03/18/19 05:26: Immature Granulocyte % (Auto) 3.1H, White Blood Count 12.4H, Red Blood Count 3.55L, Hemoglobin 9.2L, Hematocrit 30.9L, Mean Corpuscular Volume 87.0, Mean Corpuscular Hemoglobin 25.9L, Mean Corpuscular Hemoglobin Concent 29.8L, Red Cell Distribution Width 18.2H, Platelet Count 340, Neutrophils (%) (Auto) 70.2H, Lymphocytes (%) (Auto) 15.6L, Monocytes (%) (Auto) 8.7H, Eosinophils (%) (Auto) 2.0, Basophils (%) (Auto) 0.4, Neutrophils # (Auto) 8.7H, Lymphocytes # (Auto) 1.9, Monocytes # (Auto) 1.1H, Eosinophils # (Auto) 0.3, Basophils # (Auto) 0.1, Nucleated Red Blood Cells % (auto) 0.0 03/18/19 05:27: Anion Gap 3L, Glomerular Filtration Rate 38.4, Blood Urea Nitrogen 36H, C reatinine 1.40H, Sodium Level 138, Potassium Level 3.9, Chloride Level 95L, Carbon Dioxide Level 40H, Calcium Level 8.6L CBC/BMP Laboratory Tests 03/17/19 10:56 Red Blood Count 4.17, Mean Corpuscular Volume 85.6, Mean Corpuscular Hemoglobin 26.1 L, Mean Corpuscular Hemoglobin Concent 30.5 L, Red Cell Distribution Width 18.2 H, Neutrophils (%) (Auto) 78.2 H, Lymphocytes (%) (Auto) 10.3 L, Monocytes (%) (Auto) 7.5 H, Eosinophils (%) (Auto) 1.3, Basophils (%) (Auto) 0.3, Neutr ophils # (Auto) 12.3 H, Lymphocytes # (Auto) 1.6, Monocytes # (Auto) 1.2 H, Eosinophils # (Auto) 0.2, Basophils # (Auto) 0.1 03/18/19 05:26 Red Blood Count 3.55 L, Mean Corpuscular Volume 87.0, Mean Corpuscular Hemoglobin 25.9 L, Mean Corpuscular Hemoglobin Concent 29.8 L, Red Cell Distribution Width 18.2 H, Neutrophils (%) (Auto) 70.2 H, Lymphocytes (%) (Auto) 15.6 L, Monocytes (%) (Auto) 8.7 H, Eosinophils (%) (Auto) 2.0, Basophils (%) (Auto) 0.4, Neutrophils # (Auto) 8.7 H, Lymphocytes # (Auto) 1.9, Monocytes # (Auto) 1.1 H, Eosinophils # (Auto) 0.3, Basophils # (Auto) 0.1 03/18/19 05:27 Calcium Level 8.6 L Microbiology Microbiology 03/17/19 Blood Culture, Received Pending 03/17/19 Blood Culture, Received Pending Karla Garcia POLYMERIZATION SUPERVISOR Mar 18, 2019 09:18
[2019-03-18] MEDS: BUMETANIDE 1 MG TAB PO SCH (09:47)
[2019-03-18] MEDS: guaiFENesin ER 600 MG TAB PO PRN (10:53)
[2019-03-18] MEDS: CIPROFLOXACIN 400 MG in IV 1 EA IV SCH (14:27)
[2019-03-18] MEDS: ATORVASTATIN 20 MG TAB PO SCH (21:08)
[2019-03-18] MEDS: SENNA 8.6 MG TAB (SENOKOT) PO PRN (21:08)
[2019-03-19 02:00] VITALS: BP 144/64
[2019-03-19] MEDS: IPRATROPIUM 0.5MG/ALBUTEROL 2.5MG INH SOL UD 3ML (DUONEB)(J7620) NEB SCH ×4 (02:28→19:11)
[2019-03-19] MEDS: metroNIDAZOLE 500 MG in IV 1 EA IV SCH ×3 (03:17→17:59)
[2019-03-19] MEDS: LEVOTHYROXINE 100MCG TABLET (0.1MG) PO SCH (05:40)
[2019-03-19 05:58] LABS: MEAN CORPUSCULAR HEMOGLOBIN 26.2 pg (27.0-33.0); MEAN CORPUSCULAR VOLUME 87.2 fl (80.0-96.0); PLATELET COUNT, AUTOMATED 300 10^3/uL (150-450); RED BLOOD COUNT 3.44 10^6/uL (4.00-5.40)
[2019-03-19 06:22] LABS: CALCIUM LEVEL 8.2 MG/DL (8.8-10.2); CREATININE FOR GFR 1.8 MG/DL (0.55-1.30); GLOMERULAR FILTRATION RATE 28.7 (>32)
[2019-03-19 07:03] LABS: LYMPHOCYTES 32 % (16-44); MONOCYTES 6 % (0-5); NEUTROPHILS 62 % (28-66)
[2019-03-19 07:04] LABS: PLATELET ESTIMATE NORMAL (NORMAL)
[2019-03-19] MEDS: CIPROFLOXACIN 400 MG in IV 1 EA IV SCH (08:50)
[2019-03-19] MEDS: HumaLOG INSULIN (NovoLOG) PER UNIT SC SCH ×4 (08:51→21:11)
[2019-03-19] MEDS: BUMETANIDE 1 MG TAB PO SCH (08:52)
[2019-03-19] MEDS: predniSONE 20 MG TAB PO SCH (08:53)
[2019-03-19] MEDS: AMIODARONE 200 MG TAB (PACERONE) PO SCH (08:53)
[2019-03-19] MEDS: CALCITRIOL 0.25 MCG CAP (S0169) PO SCH (08:53)
[2019-03-19] MEDS: ASPIRIN 81 MG ENTERIC TAB PO SCH (08:53)
[2019-03-19] MEDS: diltiaZEM **CD** 180 MG CAP PO SCH (08:53)
[2019-03-19] MEDS: LOSARTAN 25 MG TAB PO SCH (08:53)
[2019-03-19] MEDS: busPIRone 10 MG TAB PO SCH ×3 (08:53→20:49)
[2019-03-19] MEDS: APIXABAN 2.5 MG TAB (ELIQUIS) PO SCH ×2 (08:53→20:49)
--- NOTE | 2019-03-19 08:56 | IPNPDOC ---
Subjective Date Seen The patient was seen on 03/19/19. Subjective Chief Complaint/HPI Pt this morning states that she is feeling slightly better. She states she has some LLQ pain and rectal pressure this morning, feels as though she has to have a large BM, but is anxious about it given her hx of hemorrhoids. General: Denies: Fatigue Constitutional: Denies: Chills, Fever ENT: Denies: Head Aches Pulmonary: Denies: Dyspnea, Cough Cardiovascular: Denies: Chest Pain, Palpitations Gastrointestinal: Denies: Nausea, Vomiting, Abdominal Pain Neurological: Denies: Weakness Psych: Reports: Mood Normal Objective Physical Examination General Exam: Positive: Alert, No Acute Distress Neck Exam: Positive: Supple; Negative: JVD, thyromegaly Chest Exam: Positive: Clear to auscultation, Normal air movement Heart Exam: Positive: Rate Normal, Regular Rhythm, Normal S1, Normal S2, Murmurs (blowing systolic murmur); Negative: Rubs Abdomen Exam: Positive: Normal bowel sounds, Soft; Negative: Tenderness, Hepatospenomegaly Extremity Exam: Negative: Edema Psych Exam: Positive: Mental status NL, Mood NL, Oriented x 3 Assessment /Plan Problems (1) Sigmoid diverticulitis Status: Acute Response to Treatment: Stable, Improving Discussed With: Nurse, Patient Problem Specific Plan: Monitor Clinically, Repeat Labs Problem Text: 03/19 Cipro and Flagyl day #3, abd discomfort improving, anticipate transitioning to PO in AM. (2) Mass of left lung Status: Acute Problem Text: to f/u with pulm for repeat CT and review. (3) Community acquired pneumonia Status: Resolved Problem Text: showing resolve on CXR (4) COPD (chronic obstructive pulmonary disease) Status: Chronic Response to Treatment: Stable Problem Text: On 2-3LNC at baseline (5) Atrial fibrillation Status: Chronic Response to Treatment: Stable Problem Text: rate controlled. anti-coagulated with Apixaban (6) Obstructive sleep apnea Status: Chronic Response to Treatment: Stable (7) Hypothyroidism Status: Chronic Response to Treatment: Stable (8) Iron deficiency anemia Status: Chronic Response to Treatment: Stable (9) CKD (chronic kidney disease) stage 3, GFR 30-59 ml/min Status: Chronic Response to Treatment: Stable Problem Text: Cr 1.4. at baseline (10) Hypertension Status: Chronic Response to Treatment: Stable (11) Diabetes mellitus Status: Chronic Response to Treatment: Stable Plan/VTE VTE Prophylaxis Ordered?: Yes VS, I&O, 24H, Fishbone Vital Signs/I&O Vital Signs Date Time Temp Pulse Resp B/P (MAP) Pulse Ox O2 Delivery O2 Flow Rate FiO2 03/19/19 06:00 97.1 57 18 97 3.0 03/19/19 02:00 144/64 (90) 03/18/19 04:39 Nasal Cannula I&O- Last 24 Hours up to 6 AM 03/19/19 06:00 Intake Total 2270 ml Output Total 1475 ml Balance 795 ml Laboratory Data 24H LABS Laboratory Tests 2 03/18/19 11:33: Bedside Glucose (Misc Panel) 343H 03/18/19 15:04: Methicillin-Resist S.aureus DNA PCR POSITIVEH 03/18/19 16:42: Bedside Glucose (Misc Panel) 296H 03/18/19 21:01: Bedside Glucose (Misc Panel) 290H 03/19/19 05:42: Immature Granulocyte % (Auto) , Nucleated Red Blood Cells % (auto) 0.2H, Neutrophils 62, Lymphocytes (Manual) 32, Monocytes (Manual) 6H, Platelet Estimate NORMAL, Red Blood Cell Morphology NORMAL, Anion Gap 3L, Glomerular Filtration Rate 28.7L, Blood Urea Nitrogen 37H, Creatinine 1.80H, Sodium Level 135L, Potassium Level 4.0, Chloride Level 95L, Carbon Dioxide Level 37H, Calcium Level 8.2L CBC/BMP Laboratory Tests 03/19/19 05:42 Red Blood Count 3.44 L, Mean Corpuscular Volume 87.2, Mean Corpuscular Hemoglobin 26.2 L, Mean Corpuscular Hemoglobin Concent 30.0 L, Red Cell Distribution Width 18.2 H, Calcium Level 8.2 L Microbiology Microbiology 03/17/19 Blood Culture - Preliminary, Resulted No growth after 24 hours . All specim... 03/17/19 Blood Culture - Preliminary, Resulted No growth after 24 hours . All specim... HARRIETT TELLO PA-C Mar 19, 2019 08:56
[2019-03-19] MEDS: OMEPRAZOLE 20 MG CAP PO SCH (09:19)
[2019-03-19] MEDS: IPRATROPIUM 0.5MG/ALBUTEROL 2.5MG INH SOL UD 3ML (DUONEB)(J7620) NEB PRN ×2 (10:29→22:39)
[2019-03-19 14:00] VITALS: BP 140/62
[2019-03-19] MEDS: ACETAMINOPHEN 500 MG TAB PO PRN ×2 (14:18→20:50)
[2019-03-19] MEDS: ATORVASTATIN 20 MG TAB PO SCH (20:49)
[2019-03-19] MEDS: SENNA 8.6 MG TAB (SENOKOT) PO PRN (20:50)
[2019-03-19 22:00] VITALS: BP 168/59
[2019-03-19] MEDS: guaiFENesin ER 600 MG TAB PO PRN (23:13)
[2019-03-20] VITALS (7 sets, daily range): BP systolic 158–172; BP diastolic 56–68
[2019-03-20] MEDS: CIPROFLOXACIN 400 MG in IV 1 EA IV SCH (02:16)
[2019-03-20] MEDS: IPRATROPIUM 0.5MG/ALBUTEROL 2.5MG INH SOL UD 3ML (DUONEB)(J7620) NEB SCH ×4 (02:50→19:21)
[2019-03-20] MEDS: metroNIDAZOLE 500 MG in IV 1 EA IV SCH ×3 (04:10→19:06)
[2019-03-20] MEDS ORDERED: FUROSEMIDE 40 MG/4 ML VIAL (J1940) IV ONE (05:45)
[2019-03-20] MEDS: IPRATROPIUM 0.5MG/ALBUTEROL 2.5MG INH SOL UD 3ML (DUONEB)(J7620) NEB PRN (06:21)
[2019-03-20 06:24] LABS: ABG HCO3 38.8 MEQ/L (22.0-26.0); ABG O2 SATURATION 93.3 % (95.0-99.0); ABG PARTIAL PRESSURE CO2 56.4 mmHg (35.0-45.0); ABG PARTIAL PRESSURE O2 63.1 mmHg (75.0-100.0); ABG STANDARD HCO3 36.6 MEQ/L (22.0-26.0); ABG TOTAL CO2 40.5 MEQ/L (23.0-31.0); ABG pH (ARTERIAL) 7.455 UNITS (7.350-7.450)
[2019-03-20] MEDS: LEVOTHYROXINE 100MCG TABLET (0.1MG) PO SCH (06:27)
--- NOTE | 2019-03-20 07:00 | REPVR ---
PROCEDURE INFORMATION: Exam: XR Chest, 1 View Exam date and time: 03/20/2019 6:11 AM Clinical history: 83 years old, female; Other: SOB; Additional info: Increased SOB TECHNIQUE: Imaging protocol: XR of the chest Views: 1 view. COMPARISON: CR PORTABLE CHEST X-RAY 03/11/2019 2:16 PM FINDINGS: Lungs: There is significant improvement in an opacity previously seen in the right lower lobe, with only minimal opacity now seen in the right lung base. However, there is worsening opacity in the left lung base. Pleural space: There is a small left pleural effusion, new or larger than on the prior exam. Heart/Mediastinum: There is stable cardiomegaly. Enlargement of the pulmonary arteries is again seen. Vasculature: Atherosclerotic calcifications are seen in the thoracic aorta. Upper abdomen: Right upper quadrant surgical clips are noted. Bones/joints: Unremarkable. IMPRESSION: 1. Improvement in right lower lobe opacity but worsening left lower lobe opacity and new or increased left pleural effusion. 2. Cardiomegaly and enlargement of the pulmonary arteries, without significant change. Electronically signed by: Mirian Kate On 03/20/2019 06:59:54 AM
[2019-03-20 07:06] LABS: BASO % 0.3 % (0.0-1.0); EOS # 0.3 10^3/uL (0.0-0.5); EOS % 2.6 % (0.0-3.0); HEMATOCRIT 31.7 % (36.0-47.0); HEMOGLOBIN 9.4 g/dl (12.0-15.5); LYMPH # 2.2 10^3/uL (1.5-5.0); LYMPH % 18.2 % (24.0-44.0); MEAN CORPUSCULAR HEMOGLOBIN 25.8 pg (27.0-33.0); MEAN CORPUSCULAR HGB CONC 29.7 g/dl (32.0-36.5); MEAN CORPUSCULAR VOLUME 87.1 fl (80.0-96.0); MONO # 1.1 10^3/uL (0.0-0.8); MONO % 8.9 % (0.0-5.0); NEUTROPHILS # 7.8 10^3/uL (1.5-8.5); NEUTROPHILS % 65.6 % (36.0-66.0); PLATELET COUNT, AUTOMATED 332 10^3/uL (150-450); RED BLOOD COUNT 3.64 10^6/uL (4.00-5.40)
[2019-03-20 07:20] LABS: CALCIUM LEVEL 8.4 MG/DL (8.8-10.2); CREATININE FOR GFR 1.59 MG/DL (0.55-1.30); GLOMERULAR FILTRATION RATE 33.2 (>32); POTASSIUM SERUM 3.7 MEQ/L (3.5-5.1)
[2019-03-20] MEDS: HumaLOG INSULIN (NovoLOG) PER UNIT SC SCH ×4 (08:13→21:00)
[2019-03-20] MEDS: ASPIRIN 81 MG ENTERIC TAB PO SCH (08:14)
[2019-03-20] MEDS: BUMETANIDE 1 MG TAB PO SCH (08:14)
[2019-03-20] MEDS: busPIRone 10 MG TAB PO SCH ×3 (08:14→21:42)
[2019-03-20] MEDS: AMIODARONE 200 MG TAB (PACERONE) PO SCH (08:19)
[2019-03-20] MEDS: diltiaZEM **CD** 180 MG CAP PO SCH (08:19)
[2019-03-20] MEDS: OMEPRAZOLE 20 MG CAP PO SCH (08:19)
[2019-03-20] MEDS: predniSONE 20 MG TAB PO SCH (08:19)
[2019-03-20] MEDS: LOSARTAN 25 MG TAB PO SCH (08:19)
[2019-03-20] MEDS: APIXABAN 2.5 MG TAB (ELIQUIS) PO SCH ×2 (08:19→21:42)
[2019-03-20] MEDS: CALCITRIOL 0.25 MCG CAP (S0169) PO SCH (08:19)
[2019-03-20] MEDS: guaiFENesin ER 600 MG TAB PO PRN (14:34)
--- NOTE | 2019-03-20 17:43 | IPNPDOC ---
Subjective Date Seen The patient was seen on 03/20/19. Subjective Chief Complaint/HPI Ms. Calderon reports that her breathing is a little better than it was. She is concerned about her leg swelling. She feels that, even though she is keeping them up, they are getting swollen. Her abdomen is less tender to the touch than it was just a day or two ago. General: Reports: Normal Appetite Pulmonary: Reports: Dyspnea, Cough; Denies: Pleuritic Chest Pain Cardiovascular: Reports: Edema; Denies: Chest Pain, Palpitations Psych: Reports: Mood Normal Objective Physical Examination General Exam: Positive: Alert, Cooperative (sitting in her chair with her legs elevated on her rolling walker and talking to two visitors when I entered the room), No Acute Distress Eye Exam: Positive: Conjunctiva & lids normal; Negative: Sclera icteric ENT Exam: Positive: Mucous membr. moist/pink Neck Exam: Positive: Supple; Negative: Lymphadenopathy Chest Exam: Positive: Normal air movement, Rales (noted at the R base); Negative: Wheezing Heart Exam: Positive: Rate Normal, Regular Rhythm, Normal S1, Normal S2, Murmurs (3/6 blowing systolic murmur); Negative: Rubs Abdomen Exam: Positive: Normal bowel sounds, Soft; Negative: Tenderness, Hepatospenomegaly Extremity Exam: Positive: Edema (1+ bilateral LE edema); Negative: Tenderness Psych Exam: Positive: Mental status NL, Mood NL, Oriented x 3 Assessment /Plan Problems (1) Sigmoid diverticulitis Status: Acute Response to Treatment: Stable, Improving Discussed With: Nurse, Patient Problem Specific Plan: Monitor Clinically, Repeat Labs Problem Text: 03/20 Cipro and Flagyl day #4, abd discomfort improving. I didn't change to PO today because her WBC went up a little. I will order the change to PO in AM. 03/19 Cipro and Flagyl day #3, abd discomfort improving, anticipate transitioning to PO in AM. (2) Diastolic CHF, chronic Permanent Comment: ECHO 08/2018: CONCLUSIONS: 1. Severe focal thickening and focal calcific deposits of a 3-cusp aortic valve with severe reduction in aortic cusp mobility. Aortic valve stenosis considered to be severe on the basis of aortic valve area calculation (0.74 cm) and dimensionless index (0.23). Aortic valve stenosis considered to be moderate on the basis of peak aortic valve velocity (3.4 cm/sec) and mean aortic valve gradient (30 mmHg). 2. Mild concentric left ventricle hypertrophy. No regional LV wall motion abnormalities. Normal regional LV wall motion and wall thickening. Left ventricular ejection fraction of 65% by visual estimate. Normal LV systolic function. Grade II LV diastolic dysfunction (normal filling pattern). 3. Moderate left atrial dilatation. 4. Severe mitral annular calcification. Very mild mitral regurgitation. No mitral stenosis. 5. Suggestive of moderate elevation of estimated right ventricle systolic pressure (47 mmHg). Mild tricuspid regurgitation. Normal right ventricle size and systolic function. Inferior vena cava dilatation suggestive of elevated central venous pressure of at least 20 mmHg. ADDITIONAL COMMENTS AND RECOMMENDATIONS: Consider aortic valve replacement if the patient is a suitable candidate. DD: Hai Orellana MD, [facility] 08/20/18 1509 Last Edited By: Toni Lewis MD on Mar 21, 2019 18:47 Status: Chronic Discussed With: Nurse, Patient, Family with Pt Consent Problem Specific Plan: Monitor Clinically Problem Text: Per her outpatient record she has a baseline of LE edema. It doesn't look too bad to me today. It is possible that some of what I am hearing in the R base is an effusion collecting. Will monitor. (3) Mass of left lung Status: Acute Problem Text: New lesion related to a knowl problem. The patient is to f/u with pulm for repeat CT and review. (4) Community acquired pneumonia Status: Resolved Problem Text: showing resolve on CXR (5) COPD (chronic obstructive pulmonary disease) Status: Chronic Response to Treatment: Stable Problem Text: On 2-3LNC at baseline (6) Atrial fibrillation Status: Chronic Response to Treatment: Stable Problem Text: rate controlled. anti-coagulated with Apixaban (7) Obstructive sleep apnea Status: Chronic Response to Treatment: Stable (8) Hypothyroidism Status: Chronic Response to Treatment: Stable (9) Iron deficiency anemia Status: Chronic Response to Treatment: Stable (10) CKD (chronic kidney disease) stage 3, GFR 30-59 ml/min Status: Chronic Response to Treatment: Stable Problem Text: Cr 1.4. at baseline (11) Hypertension Status: Chronic Response to Treatment: Stable (12) Diabetes mellitus Status: Chronic Response to Treatment: Stable Plan/VTE VTE Prophylaxis Ordered?: Yes VS, I&O, 24H, Fishbone Vital Signs/I&O Vital Signs Date Time Temp Pulse Resp B/P (MAP) Pulse Ox O2 Delivery O2 Flow Rate FiO2 03/20/19 14:00 98.4 65 19 168/64 (98) 98 4.0 03/19/19 22:40 Nasal Cannula I&O- Last 24 Hours up to 6 AM 03/20/19 06:00 Intake Total 1160 ml Output Total 1200 ml Balance -40 ml Laboratory Data 24H LABS Laboratory Tests 2 03/19/19 20:31: Bedside Glucose (Misc Panel) 354H 03/20/19 06:20: Blood Gas Bicarbonate Standard 36.6H, Arterial Blood pH 7.455H, Arterial Blood Partial Pressure CO2 56.4H, Arterial Blood Partial Pressure O2 63.1L, Arterial Blood Total CO2 40.5H, Arterial Blood HCO3 38.8H, Arterial Blood Base Excess 13.0H, Arterial Blood Oxygen Saturation 93.3L 03/20/19 06:41: Immature Granulocyte % (Auto) 4.4H, White Blood Count 12.0H, Red Blood Count 3.64L, Hemoglobin 9.4L, Hematocrit 31.7L, Mean Corpuscular Volume 87.1, Mean Corpuscular Hemoglobin 25.8L, Mean Corpuscular Hemoglobin Concent 29.7L, Red Cell Distribution Width 18.1H, Platelet Count 332, Neutrophils (%) (Auto) 65.6, Lymphocytes (%) (Auto) 18.2L, Monocytes (%) (Auto) 8.9H, Eosinophils (%) (Auto) 2.6, Basophils (%) (Auto) 0.3, Neutrophils # (Auto) 7.8, Lymphocytes # (Auto) 2.2, Monocytes # (Auto) 1.1H, Eosinophils # (Auto) 0.3, Basophils # (Auto) 0.0, Nucleated Red Blood Cells % (auto) 0.0, Anion Gap 4L, Glomerular Filtration Rate 33.2, Blood Urea Nitrogen 32H, Creatinine 1.59H, Sodium Level 138, Potassium Level 3.7, Chloride Level 96L, Carbon Dioxide Level 38H, Calcium Level 8.4L 03/20/19 11:32: Bedside Glucose (Misc Panel) 273H 03/20/19 16:33: Bedside Glucose (Misc Panel) 277H CBC/BMP Laboratory Tests 03/20/19 06:41 Red Blood Count 3.64 L, Mean Corpuscular Volume 87.1, Mean Corpuscular Hemoglobin 25.8 L, Mean Corpuscular Hemoglobin Concent 29.7 L, Red Cell Distribution Width 18.1 H, Neutrophils (%) (Auto) 65.6, Lymphocytes (%) (Auto) 18.2 L, Monocytes (%) (Auto) 8.9 H, Eosinophils (%) (Auto) 2.6, Basophils (%) (Auto) 0.3, Neutrophils # (Auto) 7.8, Lymphocytes # (Auto) 2.2, Monocytes # (Auto) 1.1 H, Eosinophils # (Auto) 0.3, Basophils # (Auto) 0.0, Calcium Level 8.4 L Microbiology Microbiology 03/17/19 Blood Culture - Preliminary, Resulted No Growth after 72 hours. All specime... 03/17/19 Blood Culture - Preliminary, Resulted No Growth after 72 hours. All specime... Toni Lewis MD Mar 20, 2019 17:43
[2019-03-20] MEDS: ATORVASTATIN 20 MG TAB PO SCH (21:42)
[2019-03-20] MEDS: SENNA 8.6 MG TAB (SENOKOT) PO PRN (21:48)
[2019-03-21 02:00] VITALS: BP 150/68
[2019-03-21] MEDS: IPRATROPIUM 0.5MG/ALBUTEROL 2.5MG INH SOL UD 3ML (DUONEB)(J7620) NEB SCH ×4 (02:04→19:23)
[2019-03-21] MEDS: metroNIDAZOLE (FLAGYL) 500 MG TAB PO SCH ×3 (05:45→21:51)
[2019-03-21] MEDS: LEVOTHYROXINE 100MCG TABLET (0.1MG) PO SCH (05:46)
[2019-03-21] MEDS: CIPROFLOXACIN 250 MG TAB PO SCH ×2 (05:46→17:57)
[2019-03-21 05:52] LABS: BASO # 0.1 10^3/uL (0.0-0.2); BASO % 0.6 % (0.0-1.0); EOS # 0.2 10^3/uL (0.0-0.5); EOS % 1.5 % (0.0-3.0); HEMATOCRIT 32.6 % (36.0-47.0); HEMOGLOBIN 9.9 g/dl (12.0-15.5); LYMPH # 2.6 10^3/uL (1.5-5.0); LYMPH % 17.8 % (24.0-44.0); MEAN CORPUSCULAR HEMOGLOBIN 26.5 pg (27.0-33.0); MEAN CORPUSCULAR HGB CONC 30.4 g/dl (32.0-36.5); MEAN CORPUSCULAR VOLUME 87.2 fl (80.0-96.0); MONO # 1.3 10^3/uL (0.0-0.8); MONO % 8.9 % (0.0-5.0); NEUTROPHILS # 9.8 10^3/uL (1.5-8.5); NEUTROPHILS % 66.3 % (36.0-66.0); PLATELET COUNT, AUTOMATED 313 10^3/uL (150-450); RED BLOOD COUNT 3.74 10^6/uL (4.00-5.40); WHITE BLOOD COUNT 14.8 10^3/uL (4.0-10.0)
[2019-03-21 06:00] VITALS: BP 148/74
[2019-03-21 06:14] LABS: CALCIUM LEVEL 8.5 MG/DL (8.8-10.2); CREATININE FOR GFR 1.44 MG/DL (0.55-1.30); GLOMERULAR FILTRATION RATE 37.2 (>32); POTASSIUM SERUM 3.6 MEQ/L (3.5-5.1)
[2019-03-21] MEDS: BUMETANIDE 1 MG TAB PO SCH (09:18)
[2019-03-21] MEDS: MIRALAX *UNIT DOSE* 17GM PACKET PO SCH (09:18)
[2019-03-21] MEDS: busPIRone 10 MG TAB PO SCH ×3 (09:19→21:51)
[2019-03-21] MEDS: diltiaZEM **CD** 180 MG CAP PO SCH (09:19)
[2019-03-21] MEDS: HumaLOG INSULIN (NovoLOG) PER UNIT SC SCH ×4 (09:19→21:51)
[2019-03-21] MEDS: CALCITRIOL 0.25 MCG CAP (S0169) PO SCH (09:20)
[2019-03-21] MEDS: LOSARTAN 25 MG TAB PO SCH (09:20)
[2019-03-21] MEDS: predniSONE 20 MG TAB PO SCH (09:20)
[2019-03-21] MEDS: APIXABAN 2.5 MG TAB (ELIQUIS) PO SCH ×2 (09:20→21:51)
[2019-03-21] MEDS: AMIODARONE 200 MG TAB (PACERONE) PO SCH (09:20)
[2019-03-21] MEDS: OMEPRAZOLE 20 MG CAP PO SCH (09:20)
[2019-03-21] MEDS: ASPIRIN 81 MG ENTERIC TAB PO SCH (09:21)
[2019-03-21 10:00] VITALS: BP 148/62
[2019-03-21 14:00] VITALS: BP 132/54
[2019-03-21] MEDS ORDERED: BUMETANIDE 1 MG TAB PO ONE (16:00)
[2019-03-21 18:00] VITALS: BP 154/66
--- NOTE | 2019-03-21 18:49 | IPNPDOC ---
Subjective Date Seen The patient was seen on 03/21/19. Subjective Chief Complaint/HPI Ms. Calderon notes that her legs are more swollen than they have been. She reports that she is confused by this as she has been keeping her legs elevated most of the day. She denies worsening of her breathing. She reports that her abdomen is starting to feel pretty good. She received MiraLax today as she wanted something to help her go to the bathroom, but I didn't want to use an aggressive stimulant laxative since she is just getting over diverticulitis. This seems to have had some results. General: Reports: Normal Appetite Pulmonary: Denies: Cough Cardiovascular: Reports: Edema; Denies: Chest Pain, Palpitations Gastrointestinal: Denies: Abdominal Pain Psych: Reports: Mood Normal Objective Physical Examination General Exam: Positive: Alert, Cooperative (sitting in her chair with her legs elevated when I entered the room), No Acute Distress Eye Exam: Positive: Conjunctiva & lids normal; Negative: Sclera icteric ENT Exam: Positive: Mucous membr. moist/pink Neck Exam: Positive: Supple; Negative: Lymphadenopathy Chest Exam: Positive: Normal air movement, Rales (now at the bilateral bases R>L); Negative: Wheezing Heart Exam: Positive: Rate Normal, Regular Rhythm, Normal S1, Normal S2, Murmurs (3/6 blowing systolic murmur); Negative: Rubs Abdomen Exam: Positive: Normal bowel sounds, Soft; Negative: Tenderness, Hepatospenomegaly Extremity Exam: Positive: Edema (2+ L LE edema, 1+ on the R); Negative: Tenderness Psych Exam: Positive: Mental status NL, Mood NL, Oriented x 3 Assessment /Plan Problems (1) Sigmoid diverticulitis Status: Acute Response to Treatment: Stable, Improving Discussed With: Nurse, Patient Problem Specific Plan: Monitor Clinically, Repeat Labs Problem Text: 03/21 - Cipro and Flagyl day #5, abd discomfort still improving. She had 5 BMs today. She was changed to PO meds this Am, however, her WBC are still rising. I'm concerned that there may be an infection that we're missing. I ordered a CXR and UA with reflex to culture. 03/20 Cipro and Flagyl day #4, abd discomfort improving. I didn't change to PO today because her WBC went up a little. I will order the change to PO in AM. 03/19 Cipro and Flagyl day #3, abd discomfort improving, anticipate transitioning to PO in AM. (2) Diastolic CHF, chronic Permanent Comment: ECHO 08/2018: CONCLUSIONS: 1. Severe focal thickening and focal calcific deposits of a 3-cusp aortic valve with severe reduction in aortic cusp mobility. Aortic valve stenosis considered to be severe on the basis of aortic valve area calculation (0.74 cm) and dimensionless index (0.23). Aortic valve stenosis considered to be moderate on the basis of peak aortic valve velocity (3.4 cm/sec) and mean aortic valve gradient (30 mmHg). 2. Mild concentric left ventricle hypertrophy. No regional LV wall motion abnormalities. Normal regional LV wall motion and wall thickening. Left ventricular ejection fraction of 65% by visual estimate. Normal LV systolic function. Grade II LV diastolic dysfunction (normal filling pattern). 3. Moderate left atrial dilatation. 4. Severe mitral annular calcification. Very mild mitral regurgitation. No mitral stenosis. 5. Suggestive of moderate elevation of estimated right ventricle systolic pr essure (47 mmHg). Mild tricuspid regurgitation. Normal right ventricle size and systolic function. Inferior vena cava dilatation suggestive of elevated central venous pressure of at least 20 mmHg. ADDITIONAL COMMENTS AND RECOMMENDATIONS: Consider aortic valve replacement if the patient is a suitable candidate. DD: Hai Orellana MD, [facility] 08/20/18 [id number] Last Edited By: Toni Lewis MD on Mar 21, 2019 18:47 Status: Chronic Discussed With: Nurse, Patient, Family with Pt Consent Problem Specific Plan: Monitor Clinically Problem Text: I suspect that she is collecting pleural effusions now. I ordered a CXR for tomorrow morning. I read Dr. Pollack's note and it looks like he was just adjusting her Bumex, so this may not be her regular dose. I gave her an additional 1mg dose this afternoon and will change the order to 1mg BID starting tomorrow. I am concerned that if we allow the effusions to grow too large that she will get a pulmonary infection again. Continue to monitor. (3) Mass of left lung Status: Acute Problem Text: New lesion related to a knowl problem. The patient is to f/u with pulm for repeat CT and review. (4) Community acquired pneumonia Status: Resolved Problem Text: showing resolve on CXR (5) COPD (chronic obstructive pulmonary disease) Status: Chronic Response to Treatment: Stable Problem Text: On 2-3LNC at baseline (6) Atrial fibrillation Status: Chronic Response to Treatment: Stable Problem Text: rate controlled. anti-coagulated with Apixaban (7) Obstructive sleep apnea Status: Chronic Response to Treatment: Stable (8) Hypothyroidism Status: Chronic Response to Treatment: Stable (9) Iron deficiency anemia Status: Chronic Response to Treatment: Stable (10) CKD (chronic kidney disease) stage 3, GFR 30-59 ml/min Status: Chronic Response to Treatment: Stable Problem Text: Cr 1.4. at baseline (11) Hypertension Status: Chronic Response to Treatment: Stable (12) Diabetes mellitus Status: Chronic Response to Treatment: Stable Plan/VTE VTE Prophylaxis Ordered?: Yes VS, I&O, 24H, Fishbone Vital Signs/I&O Vital Signs Date Time Temp Pulse Resp B/P (MAP) Pulse Ox O2 Delivery O2 Flow Rate FiO2 03/21/19 14:00 97.2 58 19 132/54 (80) 99 3.0 03/20/19 19:23 Nasal Cannula I&O- Last 24 Hours up to 6 AM 03/21/19 06:00 Intake Total 2180 ml Output Total 700 ml Balance 1480 ml Laboratory Data 24H LABS Laboratory Tests 2 03/20/19 20:54: Bedside Glucose (Misc Panel) 225H 03/21/19 05:35: Immature Granulocyte % (Auto) 4.9H, White Blood Count 14.8H, Red Blood Count 3.74L, Hemoglobin 9.9L, Hematocrit 32.6L, Mean Corpuscular Volume 87.2, Mean Corpuscular Hemoglobin 26.5L, Mean Corpuscular Hemoglobin Concent 30.4L, Red Cell Distribution Width 17.9H, Platelet Count 313, Neutrophils (%) (Auto) 66.3H, Lymphocytes (%) (Auto) 17.8L, Monocytes (%) (Auto) 8.9H, Eosinophils (%) (Auto) 1.5, Basophils (%) (Auto) 0.6, Neutrophils # (Auto) 9.8H, Lymphocytes # (Auto) 2.6, Monocytes # (Auto) 1.3H, Eosinophils # (Auto) 0.2, Basophils # (Auto) 0.1, Nucleated Red Blood Cells % (auto) 0.0, Anion Gap 5L, Glomerular Filtration Rate 37.2, Blood Urea Nitrogen 30H, Creatinine 1.44H, Sodium Level 136, Potassium Level 3.6, Chloride Level 94L, Carbon Dioxide Level 37H, Calcium Level 8.5L 03/21/19 11:24: Bedside Glucose (Misc Panel) 205H 03/21/19 16:19: Bedside Glucose (Misc Panel) 252H CBC/BMP Laboratory Tests 03/21/19 05:35 Red Blood Count 3.74 L, Mean Corpuscular Volume 87.2, Mean Corpuscular Hemoglobin 26.5 L, Mean Corpuscular Hemoglobin Concent 30.4 L, Red Cell Distribution Width 17.9 H, Neutrophils (%) (Auto) 66.3 H, Lymphocytes (%) (Auto) 17.8 L, Monocytes (%) (Auto) 8.9 H, Eosinophils (%) (Auto) 1.5, Basophils (%) (Auto) 0.6, Neutrophils # (Auto) 9.8 H, Lymphocytes # (Auto) 2.6, Monocytes # (Auto) 1.3 H, Eosinophils # (Auto) 0.2, Basophils # (Auto) 0.1, Calcium Level 8.5 L Microbiology Microbiology 03/17/19 Blood Culture - Preliminary, Resulted No Growth after 72 hours. All specime... 03/17/19 Blood Culture - Preliminary, Resulted No Growth after 72 hours. All specime... Toni Lewis MD Mar 21, 2019 18:49
[2019-03-21] MEDS: ATORVASTATIN 20 MG TAB PO SCH (21:51)
[2019-03-21 22:00] VITALS: BP 146/60
[2019-03-22] MEDS ORDERED: ONDANSETRON 4 MG TAB (S0181) PO PRN (00:30)
[2019-03-22] MEDS: ACETAMINOPHEN 500 MG TAB PO PRN (00:58)
[2019-03-22] MEDS: IPRATROPIUM 0.5MG/ALBUTEROL 2.5MG INH SOL UD 3ML (DUONEB)(J7620) NEB SCH ×4 (01:03→20:34)
[2019-03-22 02:00] VITALS: BP 138/72
[2019-03-22] MEDS: CIPROFLOXACIN 250 MG TAB PO SCH ×2 (05:48→17:38)
[2019-03-22] MEDS: metroNIDAZOLE (FLAGYL) 500 MG TAB PO SCH ×3 (05:48→21:10)
[2019-03-22] MEDS: LEVOTHYROXINE 100MCG TABLET (0.1MG) PO SCH (05:49)
[2019-03-22 06:00] VITALS: BP 154/60
[2019-03-22 06:12] LABS: HEMOGLOBIN 9.6 g/dl (12.0-15.5); MEAN CORPUSCULAR HEMOGLOBIN 26.2 pg (27.0-33.0); MEAN CORPUSCULAR VOLUME 87.4 fl (80.0-96.0); PLATELET COUNT, AUTOMATED 308 10^3/uL (150-450); RED BLOOD COUNT 3.66 10^6/uL (4.00-5.40); WHITE BLOOD COUNT 14.4 10^3/uL (4.0-10.0)
[2019-03-22 06:37] LABS: CALCIUM LEVEL 8.2 MG/DL (8.8-10.2); CREATININE FOR GFR 1.62 MG/DL (0.55-1.30); GLOMERULAR FILTRATION RATE 32.5 (>32); POTASSIUM SERUM 3.5 MEQ/L (3.5-5.1)
[2019-03-22 07:14] LABS: ANISOCYTOSIS 1+; BASOPHILS 1 % (0-1); EOSINOPHILS 1 % (0-3); HYPOCHROMASIA 1+; LYMPHOCYTES 19 % (16-44); MONOCYTES 10 % (0-5); NEUTROPHILS 68 % (28-66); OVALOCYTES 1+; PLATELET ESTIMATE NORMAL (NORMAL)
[2019-03-22] MEDS: MIRALAX *UNIT DOSE* 17GM PACKET PO SCH (09:00)
[2019-03-22] MEDS: HumaLOG INSULIN (NovoLOG) PER UNIT SC SCH ×4 (09:28→21:12)
[2019-03-22] MEDS: BUMETANIDE 1 MG TAB PO SCH ×2 (09:28→15:39)
[2019-03-22] MEDS: predniSONE 20 MG TAB PO SCH (09:29)
[2019-03-22] MEDS: busPIRone 10 MG TAB PO SCH ×3 (09:29→21:11)
[2019-03-22] MEDS: ASPIRIN 81 MG ENTERIC TAB PO SCH (09:29)
[2019-03-22] MEDS: LOSARTAN 25 MG TAB PO SCH (09:29)
[2019-03-22] MEDS: AMIODARONE 200 MG TAB (PACERONE) PO SCH (09:30)
[2019-03-22] MEDS: OMEPRAZOLE 20 MG CAP PO SCH (09:30)
[2019-03-22] MEDS: APIXABAN 2.5 MG TAB (ELIQUIS) PO SCH ×2 (09:30→21:11)
[2019-03-22] MEDS: diltiaZEM **CD** 180 MG CAP PO SCH (09:30)
[2019-03-22] MEDS: CALCITRIOL 0.25 MCG CAP (S0169) PO SCH (09:31)
[2019-03-22 10:00] VITALS: BP 130/52
--- NOTE | 2019-03-22 10:49 | IPNPDOC ---
Subjective Date Seen The patient was seen on 03/22/19. Subjective Chief Complaint/HPI Pt this morning states that she just isn't really feeling better. She still has some abd pain, nausea, denies vomiting or fevers. General: Denies: Fatigue Constitutional: Denies: Chills, Fever Pulmonary: Denies: Dyspnea, Cough Cardiovascular: Denies: Chest Pain, Palpitations Gastrointestinal: Reports: Nausea, Abdominal Pain; Denies: Vomiting Musculoskeletal: Denies: Neck Pain Neurological: Denies: Weakness Psych: Reports: Mood Normal Objective Physical Examination General Exam: Positive: Alert, Cooperative (sitting in her chair with her legs elevated when I entered the room), No Acute Distress Eye Exam: Negative: Sclera icteric ENT Exam: Positive: Mucous membr. moist/pink Neck Exam: Positive: Supple; Negative: Lymphadenopathy Chest Exam: Positive: Normal air movement, Rales (now at the bilateral bases R>L); Negative: Wheezing Heart Exam: Positive: Rate Normal, Regular Rhythm, Normal S1, Normal S2, Murmurs (3/6 blowing systolic murmur); Negative: Rubs Abdomen Exam: Positive: Normal bowel sounds, Soft; Negative: Tenderness, Hepatospenomegaly Extremity Exam: Positive: Edema (trace BLE); Negative: Tenderness Psych Exam: Positive: Mental status NL, Mood NL, Oriented x 3 Assessment /Plan Problems (1) Sigmoid diverticulitis Status: Acute Response to Treatment: Stable, Improving Discussed With: Nurse, Patient Problem Specific Plan: Monitor Clinically, Repeat Labs Problem Text: 03/22 Cipro/Flagyl D6, pt not happy with progress, going for XR this morning 03/21 - Cipro and Flagyl day #5, abd discomfort still improving. She had 5 BMs today. She was changed to PO meds this Am, however, her WBC are still rising. I'm concerned that there may be an infection that we're missing. I ordered a CXR and UA with reflex to culture. 03/20 Cipro and Flagyl day #4, abd discomfort improving. I didn't change to PO today because her WBC went up a little. I will order the change to PO in AM. 03/19 Cipro and Flagyl day #3, abd discomfort improving, anticipate transitioning to PO in AM. (2) Diastolic CHF, chronic Permanent Comment: ECHO 08/2018: CONCLUSIONS: 1. Severe focal thickening and focal calcific deposits of a 3-cusp aortic valve with severe reduction in aortic cusp mobility. Aortic valve stenosis considered to be severe on the basis of aortic valve area calculation (0.74 cm) and dimensionless index (0.23). Aortic valve stenosis considered to be moderate on the basis of peak aortic valve velocity (3.4 cm/sec) and mean aortic valve gradient (30 mmHg). 2. Mild concentric left ventricle hypertrophy. No regional LV wall motion abnormalities. Normal regional LV wall motion and wall thickening. Left ventricular ejection fraction of 65% by visual estimate. Normal LV systolic function. Grade II LV diastolic dysfunction (normal filling pattern). 3. Moderate left atrial dilatation. 4. Severe mitral annular calcification. Very mild mitral regurgitation. No mitral stenosis. 5. Suggestive of moderate elevation of estimated right ventricle systolic pressure (47 mmHg). Mild tricuspid regurgitation. Normal right ventricle size and systolic function. Inferior vena cava dilatation suggestive of elevated central venous pressure of at least 20 mmHg. ADDITIONAL COMMENTS AND RECOMMENDATIONS: Consider aortic valve replacement if the patient is a suitable candidate. DD: Hai Orellana MD, [facility] 08/20/18 1436 Last Edited By: Toni Lewis MD on Mar 21, 2019 18:47 Status: Chronic Discussed With: Nurse, Patient, Family with Pt Consent Problem Specific Plan: Monitor Clinically Problem Text: 107/ CXR pendiing. 03/21 I suspect that she is collecting pleural effusions now. I ordered a CXR for tomorrow morning. I read Dr. Pollack's note and it looks like he was just adjusting her Bumex, so this may not be her regular dose. I gave her an additional 1mg dose this afternoon and will change the order to 1mg BID starting tomorrow. I am concerned that if we allow the effusions to grow too large that she will get a pulmonary infection again. Continue to monitor. (3) Mass of left lung Status: Acute Problem Text: New lesion related to a knowl problem. The patient is to f/u with pulm for repeat CT and review. (4) Community acquired pneumonia Status: Resolved Problem Text: showing resolve on CXR (5) COPD (chronic obstructive pulmonary disease) Status: Chronic Response to Treatment: Stable Problem Text: On 2-3LNC at baseline (6) Atrial fibrillation Status: Chronic Response to Treatment: Stable Problem Text: rate controlled. anti-coagulated with Apixaban (7) Obstructive sleep apnea Status: Chronic Response to Treatment: Stable (8) Hypothyroidism Status: Chronic Response to Treatment: Stable (9) Iron deficiency anemia Status: Chronic Response to Treatment: Stable (10) CKD (chronic kidney disease) stage 3, GFR 30-59 ml/min Status: Chronic Response to Treatment: Stable Problem Text: Cr 1.4. at baseline (11) Hypertension Status: Chronic Response to Treatment: Stable (12) Diabetes mellitus Status: Chronic Response to Treatment: Stable Plan/VTE VTE Prophylaxis Ordered?: Yes VS, I&O, 24H, Fishbone Vital Signs/I&O Vital Signs Date Time Temp Pulse Resp B/P (MAP) Pulse Ox O2 Delivery O2 Flow Rate FiO2 03/22/19 09:30 70 154/68 03/22/19 06:00 97.5 20 100 3.0 03/21/19 19:24 Nasal Cannula I&O- Last 24 Hours up to 6 AM 03/22/19 06:00 Intake Total 990 ml Output Total 500 ml Balance 490 ml Laboratory Data 24H LABS Laboratory Tests 2 03/21/19 11:24: Bedside Glucose (Misc Panel) 205H 03/21/19 16:19: Bedside Glucose (Misc Panel) 252H 03/21/19 20:47: Bedside Glucose (Misc Panel) 309H 03/22/19 05:51: Immature Granulocyte % (Auto) , Nucleated Red Blood Cells % (auto) 0.0, Neutrophils 68H, Band Neutrophils 1, Lymphocytes (Manual) 19, Monocytes (Manual) 10H, Eosinophils (Manual) 1, Basophils (Manual) 1, Platelet Estimate NORMAL, Hypochromasia 1+, Anisocytosis 1+, Ovalocytes 1+, Anion Gap 3L, Glomerular Filtration Rate 32.5, Blood Urea Nitrogen 31H, Creatinine 1.62H, Sodium Level 135L, Potassium Level 3.5, Chloride Level 93L, Carbon Dioxide Level 39H, Calcium Level 8.2L CBC/BMP Laboratory Tests 03/22/19 05:51 Red Blood Count 3.66 L, Mean Corpuscular Volume 87.4, Mean Corpuscular Hemoglobin 26.2 L, Mean Corpuscular Hemoglobin Concent 30.0 L, Red Cell Distribution Width 17.9 H, Calcium Level 8.2 L Microbiology Microbiology 03/17/19 Blood Culture - Preliminary, Resulted No Growth after 72 hours. All specime... 03/17/19 Blood Culture - Preliminary, Resulted No Growth after 72 hours. All specime... HARRIETT TELLO PA-C Mar 22, 2019 10:49
--- NOTE | 2019-03-22 13:06 | REP ---
PA and lateral chest: Comparisons are the portable chest dated 03/20/2019, portable chest of 03/11/[address] dated 03/11/2019. The previous right lower lobe infiltrate has resolved. There is persisting opacification of the left costophrenic angle on plain films. This is of uncertain significance. This could be artifact from cardiomegaly and epicardial fat pad. There was no left pleural effusion on the comparison CT. The violetta, mediastinum, skeletal structures are unremarkable. Impression: Right lower lobe infiltrate has resolved. Persisting opacification of the left costophrenic angle as discussed. Electronically Signed by Alex Hou MD 03/22/2019 12:57 P
[2019-03-22 14:00] VITALS: BP 132/62
[2019-03-22] MEDS ORDERED: HumaLOG INSULIN (NovoLOG) PER UNIT SC STA (17:19)
[2019-03-22 18:00] VITALS: BP 160/44
[2019-03-22] MEDS: ATORVASTATIN 20 MG TAB PO SCH (21:11)
[2019-03-22 22:00] VITALS: BP 160/58
[2019-03-23] VITALS (8 sets, daily range): BP systolic 126–170; BP diastolic 50–68; O2SAT 98
[2019-03-23] MEDS: IPRATROPIUM 0.5MG/ALBUTEROL 2.5MG INH SOL UD 3ML (DUONEB)(J7620) NEB SCH ×4 (02:51→19:15)
[2019-03-23] MEDS: metroNIDAZOLE (FLAGYL) 500 MG TAB PO SCH (05:45)
[2019-03-23] MEDS: LEVOTHYROXINE 100MCG TABLET (0.1MG) PO SCH (05:45)
[2019-03-23] MEDS: CIPROFLOXACIN 250 MG TAB PO SCH (05:45)
[2019-03-23 06:06] LABS: HEMOGLOBIN 9.2 g/dl (12.0-15.5); MEAN CORPUSCULAR HEMOGLOBIN 26.3 pg (27.0-33.0); MEAN CORPUSCULAR HGB CONC 30.7 g/dl (32.0-36.5); MEAN CORPUSCULAR VOLUME 85.7 fl (80.0-96.0); PLATELET COUNT, AUTOMATED 299 10^3/uL (150-450); WHITE BLOOD COUNT 17.6 10^3/uL (4.0-10.0)
[2019-03-23 06:30] LABS: CALCIUM LEVEL 8.3 MG/DL (8.8-10.2); CREATININE FOR GFR 1.58 MG/DL (0.55-1.30); GLOMERULAR FILTRATION RATE 33.4 (>32); POTASSIUM SERUM 3.3 MEQ/L (3.5-5.1)
[2019-03-23 06:46] LABS: ANISOCYTOSIS 2+; EOSINOPHILS 1 % (0-3); LYMPHOCYTES 14 % (16-44); METAMYELOCYTES 1 % (0-0); MONOCYTES 5 % (0-5); MYELOCYTES 1 % (0-0); NEUTROPHILS 78 % (28-66); PLATELET ESTIMATE NORMAL (NORMAL)
[2019-03-23 06:47] LABS: HYPOCHROMASIA 1+; OVALOCYTES 1+
[2019-03-23] MEDS: HumaLOG INSULIN (NovoLOG) PER UNIT SC SCH ×4 (08:10→20:54)
--- NOTE | 2019-03-23 09:05 | IPNPDOC ---
Subjective Date Seen The patient was seen on 03/23/19. Subjective Chief Complaint/HPI Pt this morning states that she just isn't feeling better. She has less abd pain, but she has persistent nausea, that is worse whenever she eats anything. Denies vomiting. General: Denies: Fatigue Constitutional: Denies: Chills, Fever Pulmonary: Denies: Dyspnea, Cough Cardiovascular: Denies: Chest Pain, Palpitations Gastrointestinal: Denies: Nausea, Vomiting Neurological: Denies: Weakness Psych: Denies: Mood Normal Objective Physical Examination General Exam: Positive: Alert, Cooperative (sitting in her chair with her legs elevated when I entered the room), No Acute Distress Eye Exam: Negative: Sclera icteric ENT Exam: Positive: Mucous membr. moist/pink Neck Exam: Positive: Supple; Negative: Lymphadenopathy Chest Exam: Positive: Normal air movement, Diminished; Negative: Rales, Wheezing Heart Exam: Positive: Rate Normal, Regular Rhythm, Normal S1, Normal S2, Murmurs (3/6 blowing systolic murmur); Negative: Rubs Abdomen Exam: Positive: Normal bowel sounds, Soft; Negative: Tenderness, Hepatospenomegaly Extremity Exam: Positive: Edema (trace BLE); Negative: Tenderness Psych Exam: Positive: Mental status NL, Mood NL, Oriented x 3 Assessment /Plan Problems (1) Sigmoid diverticulitis Status: Acute Response to Treatment: Stable, Improving Discussed With: Nurse, Patient Problem Specific Plan: Monitor Clinically, Repeat Labs Problem Text: 03/23: per ct, diverticulitis improving but new LLL infiltrate noted. 03/23 WBC amol further this morning, CXR done yesterday with improvement in in filtate. 03/17 BC - Neg, will repeat today along with UA/UC&S 03/22 Cipro/Flagyl D6, pt not happy with progress, going for XR this morning 03/21 - Cipro and Flagyl day #5, abd discomfort still improving. She had 5 BMs today. She was changed to PO meds this Am, however, her WBC are still rising. I'm concerned that there may be an infection that we're missing. I ordered a CXR and UA with reflex to culture. 03/20 Cipro and Flagyl day #4, abd discomfort improving. I didn't change to PO today because her WBC went up a little. I will order the change to PO in AM. 03/19 Cipro and Flagyl day #3, abd discomfort improving, anticipate transitioning to PO in AM. (2) Hospital-acquired pneumonia Status: Acute Problem Text: CT showed new LLL infiltrate. Since she screened pos for MRSA and white count is up, will stop metronidazole and substitute vancomycin. (3) Diastolic CHF, chronic Permanent Comment: ECHO 08/2018: CONCLUSIONS: 1. Severe focal thickening and focal calcific deposits of a 3-cusp aortic valve with severe reduction in aortic cusp mobility. Aortic valve stenosis considered to be severe on the basis of aortic valve area calculation (0.74 cm) and dimensionless index (0.23). Aortic valve stenosis considered to be moderate on the basis of peak aortic valve velocity (3.4 cm/sec) and mean aortic valve gradient (30 mmHg). 2. Mild concentric left ventricle hypertrophy. No regional LV wall motion abnormalities. Normal regional LV wall motion and wall thickening. Left ventricular ejection fraction of 65% by visual estimate. Normal LV systolic function. Grade II LV diastolic dysfunction (normal filling pattern). 3. Moderate left atrial dilatation. 4. Severe mitral annular calcification. Very mild mitral regurgitation. No mitral stenosis. 5. Suggestive of moderate elevation of estimated right ventricle systolic pressure (47 mmHg). Mild tricuspid regurgitation. Normal right ventricle size and systolic function. Inferior vena cava dilatation suggestive of elevated central venous pressure of at least 20 mmHg. ADDITIONAL COMMENTS AND RECOMMENDATIONS: Consider aortic valve replacement if the patient is a suitable candidate. DD: Hai Orellana MD, [facility] 08/20/18 [id number] Last Edited By: Toni Lewis MD on Mar 21, 2019 18:47 Status: Chronic Discussed With: Nurse, Patient, Family with Pt Consent Problem Specific Plan: Monitor Clinically Problem Text: 03/23 appears compensated. 107/ CXR pendiing. 03/21 I suspect that she is collecting pleural effusions now. I ordered a CXR for tomorrow morning. I read Dr. Pollack's note and it looks like he was just adju sting her Bumex, so this may not be her regular dose. I gave her an additional 1mg dose this afternoon and will change the order to 1mg BID starting tomorrow. I am concerned that if we allow the effusions to grow too large that she will get a pulmonary infection again. Continue to monitor. (4) Mass of left lung Status: Acute Problem Text: New lesion related to a known problem. The patient is to f/u with pulm for repeat CT and review. (5) Community acquired pneumonia Status: Resolved Response to Treatment: Stable, Worse Problem Text: showing resolve on CXR (6) COPD (chronic obstructive pulmonary disease) Status: Chronic Response to Treatment: Stable Problem Text: On 2-3LNC at baseline (7) Atrial fibrillation Status: Chronic Response to Treatment: Stable Problem Text: rate controlled. anti-coagulated with Apixaban (8) Obstructive sleep apnea Status: Chronic Response to Treatment: Stable (9) Hypothyroidism Status: Chronic Response to Treatment: Stable (10) Iron deficiency anemia Status: Chronic Response to Treatment: Stable (11) CKD (chronic kidney disease) stage 3, GFR 30-59 ml/min Status: Chronic Response to Treatment: Stable Problem Text: Cr 1.4. at baseline (12) Hypertension Status: Chronic Response to Treatment: Stable (13) Diabetes mellitus Status: Chronic Response to Treatment: Stable Plan/VTE VTE Prophylaxis Ordered?: Yes VS, I&O, 24H, Fishbone Vital Signs/I&O Vital Signs Date Time Temp Pulse Resp B/P (MAP) Pulse Ox O2 Delivery O2 Flow Rate FiO2 03/23/19 08:00 98.3 56 24 160/54 (89) 99 3.0 03/23/19 07:55 Nasal Cannula I&O- Last 24 Hours up to 6 AM 03/23/19 05:59 Intake Total 1620 ml Output Total 1200 ml Balance 420 ml Laboratory Data 24H LABS Laboratory Tests 2 03/22/19 11:47: Bedside Glucose (Misc Panel) 231H 03/22/19 16:30: Bedside Glucose (Misc Panel) 575*H 03/22/19 16:32: Bedside Glucose (Misc Panel) 561*H 03/22/19 17:05: Bedside Glucose Confirm (Misc) 569*H 03/22/19 20:37: Bedside Glucose (Misc Panel) 492H 03/23/19 05:45: Immature Granulocyte % (Auto) , Nucleated Red Blood Cells % (auto) 0.1H, Neutrophils 78H, Lymphocytes (Manual) 14L, Monocytes (Manual) 5, Eosinophils (Manual) 1, Metamyelocytes 1H, Myelocytes 1H, Platelet Estimate NORMAL, Hypochromasia 1+, Anisocytosis 2+, Ovalocytes 1+, Anion Gap 5L, Glomerular Filtration Rate 33.4, Blood Urea Nitrogen 30H, Creatinine 1.58H, Sodium Level 136, Potassium Level 3.3L, Chloride Level 92L, Carbon Dioxide Level 39H, Calcium Level 8.3L CBC/BMP Laboratory Tests 03/23/19 05:45 Red Blood Count 3.50 L, Mean Corpuscular Volume 85.7, Mean Corpuscular Hemoglobin 26.3 L, Mean Corpuscular Hemoglobin Concent 30.7 L, Red Cell Distribution Width 18.0 H, Calcium Level 8.3 L Microbiology Microbiology 03/17/19 Blood Culture - Final, Complete NO GROWTH AFTER 5 DAYS 03/17/19 Blood Culture - Final, Complete NO GROWTH AFTER 5 DAYS HARRIETT TELLO PA-C Mar 23, 2019 09:05 David Pollack MD Mar 23, 2019 13:16
[2019-03-23] MEDS: GASTROGRAFIN SOLUTION 30ML PO SCH ×2 (10:05→10:43)
[2019-03-23] MEDS ORDERED: PIPERACILLIN/TAZOBACTAM SOD 3.375 GM in D5W MINI-BAG PLUS 50 ML IV SCH (10:30)
[2019-03-23] MEDS: BUMETANIDE 1 MG TAB PO SCH ×2 (10:39→15:28)
[2019-03-23] MEDS: ASPIRIN 81 MG ENTERIC TAB PO SCH (10:40)
[2019-03-23] MEDS: CALCITRIOL 0.25 MCG CAP (S0169) PO SCH (10:40)
[2019-03-23] MEDS: busPIRone 10 MG TAB PO SCH ×3 (10:40→20:53)
[2019-03-23] MEDS: OMEPRAZOLE 20 MG CAP PO SCH (10:40)
[2019-03-23] MEDS: APIXABAN 2.5 MG TAB (ELIQUIS) PO SCH ×2 (10:40→20:53)
[2019-03-23] MEDS: predniSONE 20 MG TAB PO SCH (10:41)
[2019-03-23] MEDS: AMIODARONE 200 MG TAB (PACERONE) PO SCH (10:41)
[2019-03-23] MEDS: MIRALAX *UNIT DOSE* 17GM PACKET PO SCH (10:41)
[2019-03-23] MEDS: LOSARTAN 25 MG TAB PO SCH (10:41)
[2019-03-23] MEDS: diltiaZEM **CD** 180 MG CAP PO SCH (10:50)
[2019-03-23] MEDS ORDERED: ISOVUE-370 76% 100ML VIAL (Q9967) As Ordered ONE (11:26)
[2019-03-23] MEDS ORDERED: MEROPENEM INJ 1 GM in IV 1 EA IV SCH (11:30)
[2019-03-23 11:51] LABS: AMORPHOUS SEDIMENT SMALL (NEGATIVE); APPEARANCE, URINE CLEAR (CLEAR); BACTERIA, URINE AUTO 1+ (NEGATIVE); BILIRUBIN, URINE AUTO NEGATIVE (NEGATIVE); BLOOD, URINE BLOOD NEGATIVE (NEGATIVE); COLOR, URINE YELLOW (YELLOW); GLUCOSE, URINE (UA) AUTO 2+ mg/dL (NEGATIVE); KETONE, URINE AUTO NEGATIVE (NEGATIVE); LEUKOCYTE ESTERASE, URINE AUTO 1+ (NEGATIVE); MUCUS, URINE SMALL (NEGATIVE); NITRITE, URINE AUTO NEGATIVE (NEGATIVE); PROTEIN, URINE AUTO NEGATIVE (NEGATIVE); RBC, URINE AUTO 10 /HPF (0-3); SPECIFIC GRAVITY URINE AUTO 1.014 (1.002-1.035); SQUAMOUS EPITHELIAL CELL UR AU 4 /HPF (0-6); UROBILINOGEN, URINE AUTO 0.2 mg/dL (0.0-2.0); WBC, URINE AUTO 5 /HPF (0-3)
--- NOTE | 2019-03-23 12:23 | REP ---
CT of the abdomen and pelvis with IV and oral contrast: Comparison is 03/17/2019. On the comparison study the known right lower lobe infiltrate from a previous chest CT of 03/11/2019 has significantly improved. On the study today this infiltrate continues to improve. However, there is a new infiltrate in the left lower lobe. On the prior study there was diverticulitis of the sigmoid colon with colonic wall thickening, pericolonic phlegmon and free fluid in the pelvis. On the study today the diverticulitis has significantly improved. The colonic wall thickening has significantly decreased. The pericolonic inflammation has significantly decreased. The free pelvic fluid has resolved. There is no pneumoperitoneum. The hepatic parenchyma is homogeneous. There is a cholecystectomy. This is unchanged. Fatty atrophy of the pancreas is unchanged. The spleen is unremarkable, unchanged. The adrenals are unremarkable. Right kidney is unremarkable. Left kidney appears slightly atrophic, unchanged. There are right renal cysts, unchanged. Abdominal aorta is unchanged. There is no retroperitoneal adenopathy or mass. There is no bowel distension or obstruction. There is a fat-containing midline anterior abdominal wall hernia above the umbilicus, unchanged. Pelvis: The diverticulitis has significantly improved. The bladder is unremarkable. There is a hysterectomy. Vaginal cuff and adnexa are unremarkable. Impression: The diverticulitis has significantly improved. The infiltrate in the lower lobe of the right lung continues to improve. However, there is a new infiltrate in the lower lobe of the left lung as an interval change. Electronically Signed by Alex Hou MD 03/23/2019 12:14 P
[2019-03-23] MEDS ORDERED: KCL 10MEQ/100ML SWI (KRUN) 10 MEQ in IV 1 EA IV SCH (13:00)
[2019-03-23] MEDS ORDERED: VANCOMYCIN HCL 1,000 MG, VIAL MATE ADAPTER 1 EACH in D5W 250 ML IV SCH ×2 (13:15→14:00)
[2019-03-23] MEDS: MEROPENEM INJ 1 GM in IV 1 EA IV SCH (13:24)
[2019-03-23] MEDS ORDERED: VANCOMYCIN HCL 500 MG in D5W MINI-BAG PLUS 100 ML IV ONE ×2 (13:45→16:00)
[2019-03-23] MEDS ORDERED: metroNIDAZOLE 500 MG in IV 1 EA IV SCH (14:00)
[2019-03-23] MEDS: POTASSIUM CHLORIDE 10 MEQ SR TABLET PO SCH (14:19)
--- NOTE | 2019-03-23 14:42 | PHACANCOPD ---
PHARMACY VANCOMYCIN DOSING Pt Demographics Demographics Patient Age:83 , Weight:79.000 , Gender: female Adjusted Body Weight Date: 03/23/19, Adjusted Body Weight: Kg Events Past 24 Hours Events Past 24 Hours: YES: Elevation in WBC; NO: Dialysis, Diuretic Therapy, Change in CrCl, Fever, Pending Diagnostics, Pending Procedures, Other Vancomycin Vancomycin indication: PNEUMONIA Vancomycin Target Ranges: 15-20 mcg/ml Vancomycin Load Y/N: Yes Load Dose Date Time Vancomycin Load Dose: 1.5G Date: 03/23/19 Time: 1500 Vancomycin Dose Date: 03/23/19. Current Vancomycin Dose: [1G Q4H] Intermittent Dosing?: No Labs Labs Vital Signs Label Value Date Time Patient Temperature 97.6 degrees F 03/23/19 0200 Temperature Source Temporal 03/23/19 0200 Patient Temperature 98.0 degrees F 03/23/19 0600 Temperature Source Temporal 03/23/19 0600 Patient Temperature 98.3 degrees F 03/23/19 0800 Temperature Source Oral 03/23/19 0800 Patient Temperature 98.7 degrees F 03/23/19 1200 Temperature Source Oral 03/23/19 1200 Item Value Date Time White Blood Count 11.0 10^3/uL H 03/19/19 0542 White Blood Count 12.0 10^3/uL H 03/20/19 0641 White Blood Count 14.8 10^3/uL H 03/21/19 0535 White Blood Count 14.4 10^3/uL H 03/22/19 0551 White Blood Count 17.6 10^3/uL H 03/23/19 0545 Creatinine 1.59 MG/DL H 03/20/19 0641 Creatinine 1.44 MG/DL H 03/21/19 0535 Creatinine 1.62 MG/DL H 03/22/19 0551 Creatinine 1.58 MG/DL H 03/23/19 0545 C-Reactive Protein, Quantitative 2.27 MG/DL H 03/23/19 1054 Methicillin-Resist S.aureus DNA PCR POSITIVE H 03/15/19 1630 Methicillin-Resist S.aureus DNA PCR POSITIVE H 03/18/19 1504 Micro Microbiology 03/23/19 Blood Culture, Received Pending 03/23/19 Blood Culture, Received Pending 03/17/19 Blood Culture - Final, Complete NO GROWTH AFTER 5 DAYS 03/17/19 Blood Culture - Final, Complete NO GROWTH AFTER 5 DAYS Creatinine Clearance Date:03/23/19. Creatinine Clearance: [27.8mL/MIN]. Assessment and Plan Maintaining Current Dose?: Yes Reason for dose change: No Dose Change Pharmacist Note Pharmacist Note Date: 03/23/19. Pharmacist note: Patient was readmitted to our facility shortly after discharge for a previous bout of pneumonia; current diagnosis was diverticulitis which is apparently improving. Chest CT showed a LLL infiltrate so pneumonia is suspected again. The patient is currently on a regimen of meropenem 1G Q12H as well as Vancomycin. A loading dose of 1.5 grams of vancomycin was administered 03/23/19 1500 followed by a maintenance dose of 1G Q24H. The patient is afebrile, WBC continues to increase, she has a positive MRSA PCR, serum creatinine is 1.58 and CrCl is 27.8mL/min. The patient has been treated at our facility with vancomycin in the past. We will continue to monitor and adjust doses as necessary. REG LOPEZ, PHARMACY Mar 23, 2019 14:42
[2019-03-23] MEDS ORDERED: POTASSIUM CHLORIDE 10 MEQ SR TABLET PO ONE (16:00)
[2019-03-23] MEDS: VANCOMYCIN HCL 1,000 MG, VIAL MATE ADAPTER 1 EACH in D5W 250 ML IV SCH (17:32)
[2019-03-23] MEDS: ATORVASTATIN 20 MG TAB PO SCH (20:57)
[2019-03-24] MEDS: MEROPENEM INJ 1 GM in IV 1 EA IV SCH ×2 (00:18→12:17)
[2019-03-24 02:00] VITALS: BP 148/57
[2019-03-24] MEDS: IPRATROPIUM 0.5MG/ALBUTEROL 2.5MG INH SOL UD 3ML (DUONEB)(J7620) NEB SCH ×4 (02:00→19:23)
[2019-03-24] MEDS: ACETAMINOPHEN 500 MG TAB PO PRN (02:11)
[2019-03-24] MEDS: LEVOTHYROXINE 100MCG TABLET (0.1MG) PO SCH (05:38)
[2019-03-24 05:58] LABS: HEMATOCRIT 31.1 % (36.0-47.0); HEMOGLOBIN 9.4 g/dl (12.0-15.5); MEAN CORPUSCULAR HGB CONC 30.2 g/dl (32.0-36.5); MEAN CORPUSCULAR VOLUME 85.9 fl (80.0-96.0); PLATELET COUNT, AUTOMATED 311 10^3/uL (150-450); RED BLOOD COUNT 3.62 10^6/uL (4.00-5.40); WHITE BLOOD COUNT 17.8 10^3/uL (4.0-10.0)
[2019-03-24 06:00] VITALS: BP 161/52
[2019-03-24 06:22] LABS: CALCIUM LEVEL 8.2 MG/DL (8.8-10.2); CREATININE FOR GFR 1.69 MG/DL (0.55-1.30); GLOMERULAR FILTRATION RATE 30.9 (>32); POTASSIUM SERUM 3.7 MEQ/L (3.5-5.1)
[2019-03-24 06:46] LABS: LYMPHOCYTES 9 % (16-44); MONOCYTES 1 % (0-5); NEUTROPHILS 90 % (28-66); PLATELET ESTIMATE NORMAL (NORMAL)
[2019-03-24] MEDS: HumaLOG INSULIN (NovoLOG) PER UNIT SC SCH ×4 (08:30→21:46)
[2019-03-24] MEDS: BUMETANIDE 1 MG TAB PO SCH ×2 (08:31→14:44)
[2019-03-24] MEDS: APIXABAN 2.5 MG TAB (ELIQUIS) PO SCH ×2 (08:32→21:45)
[2019-03-24] MEDS: LOSARTAN 25 MG TAB PO SCH (08:35)
[2019-03-24] MEDS: predniSONE 20 MG TAB PO SCH (08:35)
[2019-03-24] MEDS: ASPIRIN 81 MG ENTERIC TAB PO SCH (08:35)
[2019-03-24] MEDS: AMIODARONE 200 MG TAB (PACERONE) PO SCH (08:36)
[2019-03-24] MEDS: busPIRone 10 MG TAB PO SCH ×3 (08:36→21:45)
[2019-03-24] MEDS: CALCITRIOL 0.25 MCG CAP (S0169) PO SCH (08:37)
[2019-03-24] MEDS: POTASSIUM CHLORIDE 10 MEQ SR TABLET PO SCH (08:37)
[2019-03-24] MEDS: OMEPRAZOLE 20 MG CAP PO SCH (08:37)
[2019-03-24] MEDS: diltiaZEM **CD** 180 MG CAP PO SCH (08:46)
[2019-03-24] MEDS: MIRALAX *UNIT DOSE* 17GM PACKET PO SCH (09:00)
[2019-03-24 10:00] VITALS: BP 157/55
--- NOTE | 2019-03-24 10:55 | IPNPDOC ---
Subjective Date Seen The patient was seen on 03/24/19. Subjective Chief Complaint/HPI Breathing comfortable. No cough. Feels a little weak Having diarrhea starting yesterday so bowel care held this am No further abd pain Constitutional: Denies: Chills, Fever Pulmonary: Reports: Dyspnea (chronic - at baseline); Denies: Cough Cardiovascular: Denies: Chest Pain, Palpitations Gastrointestinal: Denies: Nausea, Vomiting, Abdominal Pain, Diarrhea, Constipation Objective Physical Examination General Exam: Positive: Alert, No Acute Distress Eye Exam: Negative: Sclera icteric ENT Exam: Positive: Mucous membr. moist/pink Neck Exam: Positive: Supple; Negative: Lymphadenopathy Chest Exam: Positive: Diminished; Negative: Rales, Wheezing Heart Exam: Positive: Rate Normal, Regular Rhythm, Normal S1, Normal S2, Murmurs (3/6 blowing systolic murmur); Negative: Rubs Abdomen Exam: Positive: Normal bowel sounds, Soft; Negative: Tenderness, Hepatospenomegaly Extremity Exam: Negative: Edema Psych Exam: Positive: Mental status NL, Mood NL, Oriented x 3 Assessment /Plan Problems (1) Sigmoid diverticulitis Status: Resolved Response to Treatment: Stable, Improving Discussed With: Nurse, Patient Problem Specific Plan: Monitor Clinically, Repeat Labs Problem Text: 03/24 - no further abd pain - Having loose BMs now. Hold bowel care. Was getting Miralax daily If diarrhea persists , will need to check C. Diff 03/23: per ct, diverticulitis improving but new LLL infiltrate noted. 03/23 WBC amol further this morning, CXR done yesterday with improvement in infiltate. 03/17 BC - Neg, will repeat today along with UA/UC&S 03/22 Cipro/Flagyl D6, pt not happy with progress, going for XR this morning 03/21 - Cipro and Flagyl day #5, abd discomfort still improving. She had 5 BMs today. She was changed to PO meds this Am, however, her WBC are still rising. I'm concerned that there may be an infection that we're missing. I ordered a CXR and UA with reflex to culture. 03/20 Cipro and Flagyl day #4, abd discomfort improving. I didn't change to PO today because her WBC went up a little. I will order the change to PO in AM. 03/19 Cipro and Flagyl day #3, abd discomfort improving, anticipate transitioning to PO in AM. (2) Hospital-acquired pneumonia Status: Acute Problem Text: CT showed new LLL infiltrate. Since she screened pos for MRSA and white count is up, metronidazole switched to vancomycin 03/24 & Meropenum to cover Diverticulitis and HAP Clinically stable resp status Cultures pending. (3) CKD (chronic kidney disease) stage 3, GFR 30-59 ml/min Status: Chronic Response to Treatment: Stable Problem Text: 03/24 Monitor renal function and electrolytes with diarrhea. Potassium replaced. Creatinine up slightly Hold Bumex this afternoon and monitor renal fx (4) Diastolic CHF, chronic Permanent Comment: ECHO 08/2018: CONCLUSIONS: 1. Severe focal thickening and focal calcific deposits of a 3-cusp aortic valve with severe reduction in aortic cusp mobility. Aortic valve stenosis considered to be severe on the basis of aortic valve area calculation (0.74 cm) and dimensionless index (0.23). Aortic valve stenosis considered to be moderate on t he basis of peak aortic valve velocity (3.4 cm/sec) and mean aortic valve gradient (30 mmHg). 2. Mild concentric left ventricle hypertrophy. No regional LV wall motion abnormalities. Normal regional LV wall motion and wall thickening. Left ventricular ejection fraction of 65% by visual estimate. Normal LV systolic function. Grade II LV diastolic dysfunction (normal filling pattern). 3. Moderate left atrial dilatation. 4. Severe mitral annular calcification. Very mild mitral regurgitation. No mitral stenosis. 5. Suggestive of moderate elevation of estimated right ventricle systolic pressure (47 mmHg). Mild tricuspid regurgitation. Normal right ventricle size and systolic function. Inferior vena cava dilatation suggestive of elevated central venous pressure of at least 20 mmHg. ADDITIONAL COMMENTS AND RECOMMENDATIONS: Consider aortic valve replacement if the patient is a suitable candidate. DD: Hai Orellana MD, [facility] 08/20/18 1436 Last Edited By: Toni Lewis MD on Mar 21, 2019 18:47 Status: Chronic Discussed With: Nurse, Patient, Family with Pt Consent Problem Specific Plan: Monitor Clinically Problem Text: 03/24 - compensated but if creatinine continues to rise, will need reduction of Bumex dose. 03/23 appears compensated. 107/ CXR pendiing. 03/21 I suspect that she is collecting pleural effusions now. I ordered a CXR for tomorrow morning. I read Dr. Pollack's note and it looks like he was just adjusting her Bumex, so this may not be her regular dose. I gave her an additional 1mg dose this afternoon and will change the order to 1mg BID starting tomorrow. I am concerned that if we allow the effusions to grow too large that she will get a pulmonary infection again. Continue to monitor. (5) Mass of left lung Status: Acute Problem Text: New lesion related to a known problem. The patient is to f/u with pulm for repeat CT and review. (6) Community acquired pneumonia Status: Resolved Response to Treatment: Stable, Worse Problem Text: showing resolve on CXR (7) COPD (chronic obstructive pulmonary disease) Status: Chronic Response to Treatment: Stable Problem Text: On 2-3LNC at baseline (8) Atrial fibrillation Status: Chronic Response to Treatment: Stable Problem Text: rate controlled. anti-coagulated with Apixaban (9) Obstructive sleep apnea Status: Chronic Response to Treatment: Stable (10) Hypothyroidism Status: Chronic Response to Treatment: Stable (11) Iron deficiency anemia Status: Chronic Response to Treatment: Stable (12) Hypertension Status: Chronic Response to Treatment: Stable (13) Diabetes mellitus Status: Chronic Response to Treatment: Stable Plan/VTE VTE Prophylaxis Ordered?: Yes VS, I&O, 24H, Fishbone Vital Signs/I&O Vital Signs Date Time Temp Pulse Resp B/P (MAP) Pulse Ox O2 Delivery O2 Flow Rate FiO2 03/24/19 10:00 97.4 55 18 157/55 (89) 100 3.0 03/23/19 07:55 Nasal Cannula I&O- Last 24 Hours up to 6 AM 03/24/19 05:59 Intake Total 2300 ml Output Total 2750 ml Balance -450 ml Laboratory Data 24H LABS Laboratory Tests 2 03/23/19 10:54: C-Reactive Protein, Quantitative 2.27H 03/23/19 11:15: Urine Appearance CLEAR, Urine Color YELLOW, Urine pH 6.0, Urine Specific [place] 1.014, Urine Protein NEGATIVE, Urine Glucose (UA) 2+H, Urine Ketones NEGATIVE, Urine Urobilinogen 0.2, Urine Bilirubin NEGATIVE, Urine Leukocyte Esterase 1+H, Urine Blood NEGATIVE, Urine Nitrite NEGATIVE, Urine WBC (Auto) 5H, Urine RBC (Auto) 10H, Urine Hyaline Casts (Auto) 0, Urine Bacteria (Auto) 1+H, Urine Squamous Epithelial Cells 4, Urine Amorphous Sediment SMALLH, Urine Mucus (Auto) SMALL, Urine Sperm (Auto) 03/23/19 12:14: Bedside Glucose (Misc Panel) 353H 03/23/19 16:37: Bedside Glucose (Misc Panel) 226H 03/23/19 20:35: Bedside Glucose (Misc Panel) 402H 03/24/19 05:36: Immature Granulocyte % (Auto) , Nucleated Red Blood Cells % (auto) 0.0, Neutrophils 90H, Lymphocytes (Manual) 9L, Monocytes (Manual) 1, Platelet Estimate NORMAL, Red Blood Cell Morphology NORMAL, Anion Gap 4L, Glomerular Filtration Rate 30.9L, Blood Urea Nitrogen 28H, Creatinine 1.69H, Sodium Level 135L, Potassium Level 3.7, Chloride Level 92L, Carbon Dioxide Level 39H, Calcium Level 8.2L CBC/BMP Laboratory Tests 03/24/19 05:36 Red Blood Count 3.62 L, Mean Corpuscular Volume 85.9, Mean Corpuscular Hemoglobin 26.0 L, Mean Corpuscular Hemoglobin Concent 30.2 L, Red Cell Distribution Width 18.2 H, Calcium Level 8.2 L Microbiology Microbiology 03/23/19 Gram Stain - Final, Resulted 03/23/19 Sputum Culture, Resulted Pending 03/23/19 Blood Culture, Received Pending 03/23/19 Blood Culture, Received Pending 03/17/19 Blood Culture - Final, Complete NO GROWTH AFTER 5 DAYS 03/17/19 Blood Culture - Final, Complete NO GROWTH AFTER 5 DAYS OSCAR ORTEZ PA-C Mar 24, 2019 10:55 David Pollack MD Mar 24, 2019 12:19
[2019-03-24 14:00] VITALS: BP 157/53
[2019-03-24] MEDS: VANCOMYCIN HCL 1,000 MG, VIAL MATE ADAPTER 1 EACH in D5W 250 ML IV SCH (14:43)
[2019-03-24 18:00] VITALS: BP 174/56
[2019-03-24] MEDS: ATORVASTATIN 20 MG TAB PO SCH (21:45)
[2019-03-24 22:00] VITALS: BP 148/70
[2019-03-25] MEDS: MEROPENEM INJ 1 GM in IV 1 EA IV SCH ×3 (00:14→23:22)
[2019-03-25] MEDS: IPRATROPIUM 0.5MG/ALBUTEROL 2.5MG INH SOL UD 3ML (DUONEB)(J7620) NEB PRN ×3 (00:32→15:21)
[2019-03-25] MEDS: IPRATROPIUM 0.5MG/ALBUTEROL 2.5MG INH SOL UD 3ML (DUONEB)(J7620) NEB SCH ×4 (02:00→19:52)
[2019-03-25 06:00] VITALS: BP 156/82
[2019-03-25] MEDS: LEVOTHYROXINE 100MCG TABLET (0.1MG) PO SCH (06:05)
--- NOTE | 2019-03-25 08:57 | IPNPDOC ---
Subjective Date Seen The patient was seen on 03/25/19. Subjective Chief Complaint/HPI Pt this morning is feeling better. Nausea has resolved, she no longer has abd pain. She slept well last night. She denies SOB/Cough. SHe notes that BLE appear swollen today. General: Reports: Fatigue Constitutional: Denies: Chills, Fever ENT: Denies: Head Aches Pulmonary: Denies: Dyspnea, Cough Cardiovascular: Denies: Chest Pain, Palpitations Gastrointestinal: Denies: Nausea, Vomiting, Diarrhea (None since yest AM) Neurological: Denies: Weakness Psych: Reports: Mood Normal Objective Physical Examination General Exam: Positive: Alert, No Acute Distress Eye Exam: Negative: Sclera icteric ENT Exam: Positive: Mucous membr. moist/pink Neck Exam: Positive: Supple; Negative: Lymphadenopathy Chest Exam: Positive: Diminished; Negative: Rales, Wheezing Heart Exam: Positive: Rate Normal, Regular Rhythm, Normal S1, Normal S2, Murmurs (3/6 blowing systolic murmur); Negative: Rubs Abdomen Exam: Positive: Normal bowel sounds, Soft; Negative: Tenderness, Hepatospenomegaly Extremity Exam: Negative: Edema Psych Exam: Positive: Mental status NL, Mood NL, Oriented x 3 Assessment /Plan Problems (1) Sigmoid diverticulitis Status: Resolved Response to Treatment: Stable, Improving Discussed With: Nurse, Patient Problem Specific Plan: Monitor Clinically, Repeat Labs Problem Text: 03/25 This appears to be resolving both on imaging and clinically. She is now on Meropenam and Vanco. 03/24 - no further abd pain - Having loose BMs now. Hold bowel care. Was getting Miralax daily If diarrhea persists , will need to check C. Diff 03/23: per ct, diverticulitis improving but new LLL infiltrate noted. 03/23 WBC amol further this morning, CXR done yesterday with improvement in infiltate. 03/17 BC - Neg, will repeat today along with UA/UC&S 03/22 Cipro/Flagyl D6, pt not happy with progress, going for XR this morning 03/21 - Cipro and Flagyl day #5, abd discomfort still improving. She had 5 BMs today. She was changed to PO meds this Am, however, her WBC are still rising. I'm concerned that there may be an infection that we're missing. I ordered a CXR and UA with reflex to culture. 03/20 Cipro and Flagyl day #4, abd discomfort improving. I didn't change to PO today because her WBC went up a little. I will order the change to PO in AM. 03/19 Cipro and Flagyl day #3, abd discomfort improving, anticipate transitioning to PO in AM. (2) Hospital-acquired pneumonia Status: Acute Problem Text: 03/25 Asymptomatic but with hx of MRSA, there for Meropenem and Vanco. WBC edged up a little today. 03/24 CT showed new LLL infiltrate. Since she screened pos for MRSA and white count is up, metronidazole switched to vancomycin 03/24 & Meropenum to cover Di verticulitis and HAP Clinically stable resp status Cultures pending. (3) CKD (chronic kidney disease) stage 3, GFR 30-59 ml/min Status: Chronic Response to Treatment: Stable Problem Text: 03/25: creatinine is up a little again today.. reduce bumetanide to 4mg daily. 03/24 Monitor renal function and electrolytes with diarrhea. Potassium replaced. Creatinine up slightly Hold Bumex this afternoon and monitor renal fx (4) Diastolic CHF, chronic Permanent Comment: ECHO 08/2018: CONCLUSIONS: 1. Severe focal thickening and focal calcific deposits of a 3-cusp aortic valve with severe reduction in aortic cusp mobility. Aortic valve stenosis considered to be severe on the basis of aortic valve area calculation (0.74 cm) and dimensionless index (0.23). Aortic valve stenosis considered to be moderate on the basis of peak aortic valve velocity (3.4 cm/sec) and mean aortic valve gradient (30 mmHg). 2. Mild concentric left ventricle hypertrophy. No regional LV wall motion abnormalities. Normal regional LV wall motion and wall thickening. Left ventricular ejection fraction of 65% by visual estimate. Normal LV systolic function. Grade II LV diastolic dysfunction (normal filling pattern). 3. Moderate left atrial dilatation. 4. Severe mitral annular calcification. Very mild mitral regurgitation. No mitral stenosis. 5. Suggestive of moderate elevation of estimated right ventricle systolic press ure (47 mmHg). Mild tricuspid regurgitation. Normal right ventricle size and systolic function. Inferior vena cava dilatation suggestive of elevated central venous pressure of at least 20 mmHg. ADDITIONAL COMMENTS AND RECOMMENDATIONS: Consider aortic valve replacement if the patient is a suitable candidate. DD: Hai Orellnaa MD, [facility] 08/20/18 [id number] Last Edited By: Toni Lewis MD on Mar 21, 2019 18:47 Status: Chronic Discussed With: Nurse, Patient, Family with Pt Consent Problem Specific Plan: Monitor Clinically Problem Text: 03/24 - compensated but if creatinine continues to rise, will need reduction of Bumex dose. 03/23 appears compensated. 107/ CXR pendiing. 03/21 I suspect that she is collecting pleural effusions now. I ordered a CXR for tomorrow morning. I read Dr. Pollack's note and it looks like he was just adjusting her Bumex, so this may not be her regular dose. I gave her an additional 1mg dose this afternoon and will change the order to 1mg BID starting tomorrow. I am concerned that if we allow the effusions to grow too large that she will get a pulmonary infection again. Continue to monitor. (5) Mass of left lung Status: Acute Problem Text: New lesion related to a known problem. The patient is to f/u with pulm for repeat CT and review. (6) COPD (chronic obstructive pulmonary disease) Status: Chronic Response to Treatment: Stable Problem Text: On 2-3LNC at baseline (7) Atrial fibrillation Status: Chronic Response to Treatment: Stable Problem Text: rate controlled. anti-coagulated with Apixaban (8) Obstructive sleep apnea Status: Chronic Response to Treatment: Stable (9) Hypothyroidism Status: Chronic Response to Treatment: Stable (10) Iron deficiency anemia Status: Chronic Response to Treatment: Stable (11) Hypertension Status: Chronic Response to Treatment: Stable (12) Diabetes mellitus Status: Chronic Response to Treatment: Stable Plan/VTE VTE Prophylaxis Ordered?: Yes VS, I&O, 24H, Fishbone Vital Signs/I&O Vital Signs Date Time Temp Pulse Resp B/P (MAP) Pulse Ox O2 Delivery O2 Flow Rate FiO2 03/25/19 06:00 97.8 60 20 156/82 (106) 100 3.0 03/23/19 07:55 Nasal Cannula I&O- Last 24 Hours up to 6 AM 03/25/19 06:00 Intake Total 990 ml Output Total 1600 ml Balance -610 ml Laboratory Data 24H LABS Laboratory Tests 2 03/24/19 11:37: Bedside Glucose (Misc Panel) 243H 03/24/19 17:42: Bedside Glucose (Misc Panel) 508*H 03/24/19 17:45: Bedside Glucose (Misc Panel) 454H 03/24/19 20:49: Bedside Glucose (Misc Panel) 521*H 03/24/19 20:51: Bedside Glucose (Misc Panel) 533*H 03/24/19 21:23: Bedside Glucose Confirm (Misc) 509*H 03/25/19 00:50: Bedside Glucose (Misc Panel) 399H 03/25/19 06:01: Bedside Glucose (Misc Panel) 298H Microbiology Microbiology 03/23/19 Gram Stain - Final, Resulted 03/23/19 Sputum Culture, Resulted Pending 03/23/19 Blood Culture - Preliminary, Resulted No growth after 24 hours . All specim... 03/23/19 Blood Culture - Preliminary, Resulted No growth after 24 hours . All specim... 03/17/19 Blood Culture - Final, Complete NO GROWTH AFTER 5 DAYS 03/17/19 Blood Culture - Final, Complete NO GROWTH AFTER 5 DAYS HARRIETT TELLO PA-C Mar 25, 2019 08:57 David Pollack MD Mar 25, 2019 10:59
[2019-03-25] MEDS: busPIRone 10 MG TAB PO SCH ×3 (08:59→21:57)
[2019-03-25] MEDS: predniSONE 20 MG TAB PO SCH (08:59)
[2019-03-25] MEDS: APIXABAN 2.5 MG TAB (ELIQUIS) PO SCH ×2 (08:59→21:57)
[2019-03-25] MEDS: ASPIRIN 81 MG ENTERIC TAB PO SCH (08:59)
[2019-03-25] MEDS: BUMETANIDE 1 MG TAB PO SCH (08:59)
[2019-03-25] MEDS: HumaLOG INSULIN (NovoLOG) PER UNIT SC SCH ×4 (08:59→21:58)
[2019-03-25] MEDS: CALCITRIOL 0.25 MCG CAP (S0169) PO SCH (08:59)
[2019-03-25] MEDS: OMEPRAZOLE 20 MG CAP PO SCH (09:00)
[2019-03-25] MEDS: MIRALAX *UNIT DOSE* 17GM PACKET PO SCH (09:00)
[2019-03-25] MEDS: AMIODARONE 200 MG TAB (PACERONE) PO SCH (09:00)
[2019-03-25] MEDS: LOSARTAN 25 MG TAB PO SCH (09:01)
[2019-03-25] MEDS: POTASSIUM CHLORIDE 10 MEQ SR TABLET PO SCH (09:01)
[2019-03-25 09:29] LABS: BASO # 0.1 10^3/uL (0.0-0.2); BASO % 0.7 % (0.0-1.0); EOS # 0.2 10^3/uL (0.0-0.5); EOS % 1.1 % (0.0-3.0); HEMATOCRIT 33.5 % (36.0-47.0); HEMOGLOBIN 10.2 g/dl (12.0-15.5); LYMPH # 2.6 10^3/uL (1.5-5.0); LYMPH % 14.1 % (24.0-44.0); MEAN CORPUSCULAR HEMOGLOBIN 26.8 pg (27.0-33.0); MEAN CORPUSCULAR HGB CONC 30.4 g/dl (32.0-36.5); MEAN CORPUSCULAR VOLUME 88.2 fl (80.0-96.0); MONO # 1.2 10^3/uL (0.0-0.8); MONO % 6.6 % (0.0-5.0); NEUTROPHILS # 13.3 10^3/uL (1.5-8.5); NEUTROPHILS % 73.5 % (36.0-66.0); PLATELET COUNT, AUTOMATED 308 10^3/uL (150-450); WHITE BLOOD COUNT 18.1 10^3/uL (4.0-10.0)
[2019-03-25 09:34] LABS: CALCIUM LEVEL 8.6 MG/DL (8.8-10.2); CREATININE FOR GFR 1.7 MG/DL (0.55-1.30); GLOMERULAR FILTRATION RATE 30.7 (>32); POTASSIUM SERUM 3.5 MEQ/L (3.5-5.1)
[2019-03-25] MEDS: diltiaZEM **CD** 180 MG CAP PO SCH (09:36)
[2019-03-25 10:00] VITALS: BP 172/58
[2019-03-25 10:57] VITALS: BP 168/64
[2019-03-25 14:00] VITALS: BP 160/75
[2019-03-25] MEDS: VANCOMYCIN HCL 1,000 MG, VIAL MATE ADAPTER 1 EACH in D5W 250 ML IV SCH (15:04)
[2019-03-25 18:00] VITALS: BP 162/58
[2019-03-25] MEDS: ATORVASTATIN 20 MG TAB PO SCH (21:57)
[2019-03-25 22:00] VITALS: BP 164/58
[2019-03-26] MEDS: IPRATROPIUM 0.5MG/ALBUTEROL 2.5MG INH SOL UD 3ML (DUONEB)(J7620) NEB SCH ×4 (01:23→19:31)
[2019-03-26 02:00] VITALS: BP 160/56
[2019-03-26] MEDS: LEVOTHYROXINE 100MCG TABLET (0.1MG) PO SCH (05:38)
[2019-03-26 05:50] LABS: BASO % 0.3 % (0.0-1.0); EOS % 0.3 % (0.0-3.0); HEMATOCRIT 29.8 % (36.0-47.0); HEMOGLOBIN 8.9 g/dl (12.0-15.5); LYMPH # 1.2 10^3/uL (1.5-5.0); LYMPH % 7.6 % (24.0-44.0); MEAN CORPUSCULAR HGB CONC 29.9 g/dl (32.0-36.5); MEAN CORPUSCULAR VOLUME 87.1 fl (80.0-96.0); MONO # 0.9 10^3/uL (0.0-0.8); MONO % 5.4 % (0.0-5.0); NEUTROPHILS # 13.3 10^3/uL (1.5-8.5); NEUTROPHILS % 83.3 % (36.0-66.0); PLATELET COUNT, AUTOMATED 291 10^3/uL (150-450); RED BLOOD COUNT 3.42 10^6/uL (4.00-5.40); WHITE BLOOD COUNT 15.9 10^3/uL (4.0-10.0)
[2019-03-26 06:00] VITALS: BP 150/56
[2019-03-26 06:13] LABS: CALCIUM LEVEL 8.4 MG/DL (8.8-10.2); CREATININE FOR GFR 1.53 MG/DL (0.55-1.30); GLOMERULAR FILTRATION RATE 34.7 (>32); POTASSIUM SERUM 3.8 MEQ/L (3.5-5.1)
[2019-03-26] MEDS: HumaLOG INSULIN (NovoLOG) PER UNIT SC SCH ×4 (08:03→21:01)
[2019-03-26] MEDS: LOSARTAN 25 MG TAB PO SCH (08:03)
[2019-03-26] MEDS: CALCITRIOL 0.25 MCG CAP (S0169) PO SCH (08:04)
[2019-03-26] MEDS: busPIRone 10 MG TAB PO SCH ×3 (08:04→21:00)
[2019-03-26] MEDS: APIXABAN 2.5 MG TAB (ELIQUIS) PO SCH ×2 (08:04→21:00)
[2019-03-26] MEDS: ASPIRIN 81 MG ENTERIC TAB PO SCH (08:04)
[2019-03-26] MEDS: AMIODARONE 200 MG TAB (PACERONE) PO SCH (08:04)
[2019-03-26] MEDS: predniSONE 20 MG TAB PO SCH (08:04)
[2019-03-26] MEDS: OMEPRAZOLE 20 MG CAP PO SCH (08:05)
[2019-03-26] MEDS: POTASSIUM CHLORIDE 10 MEQ SR TABLET PO SCH (08:05)
[2019-03-26] MEDS: diltiaZEM **CD** 180 MG CAP PO SCH (08:05)
[2019-03-26] MEDS: BUMETANIDE 1 MG TAB PO SCH (08:15)
[2019-03-26] MEDS: MIRALAX *UNIT DOSE* 17GM PACKET PO SCH (08:43)
--- NOTE | 2019-03-26 09:26 | IPNPDOC ---
Subjective Date Seen The patient was seen on 03/26/19. Subjective Chief Complaint/HPI Miranda is finally feeling better. Her abd pain has resolved, she is no longer feeling nauseous and her appetite has improved. She denies a cough today and her breathing has returned to nearly baseline. General: Reports: Fatigue Constitutional: Denies: Chills, Fever ENT: Denies: Head Aches Pulmonary: Reports: Dyspnea; Denies: Cough Gastrointestinal: Denies: Nausea, Vomiting, Diarrhea Neurological: Reports: Weakness Psych: Reports: Mood Normal Objective Physical Examination General Exam: Positive: Alert, No Acute Distress Eye Exam: Negative: Sclera icteric ENT Exam: Positive: Mucous membr. moist/pink Neck Exam: Positive: Supple; Negative: Lymphadenopathy Chest Exam: Positive: Diminished; Negative: Rales, Wheezing Heart Exam: Positive: Rate Normal, Regular Rhythm, Normal S1, Normal S2, Murmurs (3/6 blowing systolic murmur); Negative: Rubs Abdomen Exam: Positive: Normal bowel sounds, Soft; Negative: Tenderness, Hepatospenomegaly Extremity Exam: Negative: Edema Psych Exam: Positive: Mental status NL, Mood NL, Oriented x 3 Assessment /Plan Problems (1) Hospital-acquired pneumonia Status: Acute Response to Treatment: Improving Problem Text: 03/26 WBC down today, will cont to monitor, XRAY looks worse but clinically improved. Since we have no convincing evidence of requirement for meropenem or vanco, will change to po doxycycline at this point. If clinically stable, then d/c in am. 03/25 Asymptomatic but with hx of MRSA, there for Meropenem and Vanco. WBC edged up a little today. 03/24 CT showed new LLL infiltrate. Since she screened pos for MRSA and white count is up, metronidazole switched to vancomycin 03/24 & Meropenum to cover Diverticulitis and HAP Clinically stable resp status Cultures pending. (2) Sigmoid diverticulitis Status: Resolved Response to Treatment: Stable, Improving Discussed With: Nurse, Patient Problem Specific Plan: Monitor Clinically, Repeat Labs Problem Text: 03/26 Clinically improving. 03/25 This appears to be resolving both on imaging and clinically. She is now on Meropenam and Vanco. 03/24 - no further abd pain - Having loose BMs now. Hold bowel care. Was getting Miralax daily If diarrhea persists , will need to check C. Diff 03/23: per ct, diverticulitis improving but new LLL infiltrate noted. 03/23 WBC amol further this morning, CXR done yesterday with improvement in infiltate. 03/17 BC - Neg, will repeat today along with UA/UC&S 03/22 Cipro/Flagyl D6, pt not happy with progress, going for XR this morning 03/21 - Cipro and Flagyl day #5, abd discomfort still improving. She had 5 BMs today. She was changed to PO meds this Am, however, her WBC are still rising. I'm concerned that there may be an infection that we're missing. I ordered a CXR and UA with reflex to culture. 03/20 Cipro and Flagyl day #4, abd discomfort improving. I didn't change to PO today because her WBC went up a little. I will order the change to PO in AM. 03/19 Cipro and Flagyl day #3, abd discomfort improving, anticipate transitioning to PO in AM. (3) CKD (chronic kidney disease) stage 3, GFR 30-59 ml/min Status: Chronic Response to Treatment: Stable Problem Text: 03/26 Scr down today, at baseline. Edema better but I/O positive yesterday. bumex increased back to 6mg TDD. 03/25: creatinine is up a little again today.. reduce bumetanide to 4mg daily. 03/24 Monitor renal function and electrolytes with diarrhea. Potassium replaced. Creatinine up slightly Hold Bumex this afternoon and monitor renal fx (4) Diastolic CHF, chronic Permanent Comment: ECHO 08/2018: CONCLUSIONS: 1. Severe focal thickening and focal calcific deposits of a 3-cusp aortic valve with severe reduction in aortic cusp mobility. Aortic valve stenosis considered to be severe on the basis of aortic valve area calculation (0.74 cm) and dimensionless index (0.23). Aortic valve stenosis considered to be moderate on the basis of peak aortic valve velocity (3.4 cm/sec) and mean aortic valve gradient (30 mmHg). 2. Mild concentric left ventricle hypertrophy. No regional LV wall motion abnormalities. Normal regional LV wall motion and wall thickening. Left ventricular ejection fraction of 65% by visual estimate. Normal LV systolic fu nction. Grade II LV diastolic dysfunction (normal filling pattern). 3. Moderate left atrial dilatation. 4. Severe mitral annular calcification. Very mild mitral regurgitation. No mitral stenosis. 5. Suggestive of moderate elevation of estimated right ventricle systolic pressure (47 mmHg). Mild tricuspid regurgitation. Normal right ventricle size and systolic function. Inferior vena cava dilatation suggestive of elevated central venous pressure of at least 20 mmHg. ADDITIONAL COMMENTS AND RECOMMENDATIONS: Consider aortic valve replacement if the patient is a suitable candidate. DD: Hai Orellana MD, [facility] 08/20/18 1436 Last Edited By: Toni Lewis MD on Mar 21, 2019 18:47 Status: Chronic Discussed With: Nurse, Patient, Family with Pt Consent Problem Specific Plan: Monitor Clinically Problem Text: 03/26: improved. 03/24 - compensated but if creatinine continues to rise, will need reduction of Bumex dose. 03/23 appears compensated. 107/ CXR pendiing. 03/21 I suspect that she is collecting pleural effusions now. I ordered a CXR for tomorrow morning. I read Dr. Pollack's note and it looks like he was just adjusting her Bumex, so this may not be her regular dose. I gave her an additional 1mg dose this afternoon and will change the order to 1mg BID starting tomorrow. I am concerned that if we allow the effusions to grow too large that she will get a pulmonary infection again. Continue to monitor. (5) Mass of left lung Status: Acute Problem Text: New lesion related to a known problem. The patient is to f/u with pulm for repeat CT and review. (6) COPD (chronic obstructive pulmonary disease) Status: Chronic Response to Treatment: Stable Problem Text: On 2-3LNC at baseline (7) Atrial fibrillation Status: Chronic Response to Treatment: Stable Problem Text: rate controlled. anti-coagulated with Apixaban (8) Obstructive sleep apnea Status: Chronic Response to Treatment: Stable (9) Hypothyroidism Status: Chronic Response to Treatment: Stable (10) Iron deficiency anemia Status: Chronic Response to Treatment: Stable (11) Hypertension Status: Chronic Response to Treatment: Stable (12) Diabetes mellitus Status: Chronic Response to Treatment: Stable Plan/VTE VTE Prophylaxis Ordered?: Yes VS, I&O, 24H, Fishbone Vital Signs/I&O Vital Signs Date Time Temp Pulse Resp B/P (MAP) Pulse Ox O2 Delivery O2 Flow Rate FiO2 03/26/19 08:05 60 134/62 03/26/19 06:00 96.9 16 100 3.0 03/23/19 07:55 Nasal Cannula I&O- Last 24 Hours up to 6 AM 03/26/19 05:59 Intake Total 1870 ml Output Total 675 ml Balance 1195 ml Laboratory Data 24H LABS Laboratory Tests 2 03/25/19 11:21: Bedside Glucose (Misc Panel) 284H 03/25/19 16:29: Bedside Glucose (Misc Panel) 351H 03/25/19 21:52: Bedside Glucose (Misc Panel) 494H 03/26/19 05:29: Immature Granulocyte % (Auto) 3.1H, White Blood Count 15.9H, Red Blood Count 3.42L, Hemoglobin 8.9L, Hematocrit 29.8L, Mean Corpuscular Volume 87.1, Mean Corpuscular Hemoglobin 26.0L, Mean Corpuscular Hemoglobin Concent 29.9L, Red Cell Distribution Width 18.6H, Platelet Count 291, Neutrophils (%) (Auto) 83.3H, Lymphocytes (%) (Auto) 7.6L, Monocytes (%) (Auto) 5.4H, Eosinophils (%) (Auto) 0.3, Basophils (%) (Auto) 0.3, Neutrophils # (Auto) 13.3H, Lymphocytes # (Auto) 1.2L, Monocytes # (Auto) 0.9H, Eosinophils # (Auto) 0.0, Basophils # (Auto) 0.0, Nucleated Red Blood Cells % (auto) 0.0, Anion Gap 3L, Glomerular Filtration Rate 34.7, Blood Urea Nitrogen 32H, Creatinine 1.53H, Sodium Level 135L, Potassium Level 3.8, Chloride Level 91L, Carbon Dioxide Level 41H, Calcium Level 8.4L CBC/BMP Laboratory Tests 03/26/19 05:29 Red Blood Count 3.42 L, Mean Corpuscular Volume 87.1, Mean Corpuscular Hemoglobin 26.0 L, Mean Corpuscular Hemoglobin Concent 29.9 L, Red Cell Distr ibution Width 18.6 H, Neutrophils (%) (Auto) 83.3 H, Lymphocytes (%) (Auto) 7.6 L, Monocytes (%) (Auto) 5.4 H, Eosinophils (%) (Auto) 0.3, Basophils (%) (Auto) 0.3, Neutrophils # (Auto) 13.3 H, Lymphocytes # (Auto) 1.2 L, Monocytes # (Auto) 0.9 H, Eosinophils # (Auto) 0.0, Basophils # (Auto) 0.0, Calcium Level 8.4 L Microbiology Microbiology 03/23/19 Gram Stain - Final, Complete 03/23/19 Sputum Culture - Final, Complete 03/23/19 Blood Culture - Preliminary, Resulted No Growth after 48 hours. All Specime... 03/23/19 Blood Culture - Preliminary, Resulted No Growth after 48 hours. All Specime... 03/17/19 Blood Culture - Final, Complete NO GROWTH AFTER 5 DAYS 03/17/19 Blood Culture - Final, Complete NO GROWTH AFTER 5 DAYS HARRIETT TELLO PA-C Mar 26, 2019 09:26 David Pollack MD Mar 26, 2019 11:53
--- NOTE | 2019-03-26 09:58 | REP ---
Chest, patient sitting AP and lateral views: Comparisons are the PA and lateral chest of 03/22/[address] of the abdomen, including the lower lung skinner, 03/23/2019. The left costophrenic angle is opacified. On the comparison abdomen CT there was an infiltrate in the left lower lobe. This likely accounts for the opacification of the left costophrenic angle on the current study. The left upper lobe is clear. The right lung is clear. Cardiac size cannot be assessed as the left cardiac margin is obscured. Impression: Left lower lobe infiltrate. Electronically Signed by Alex Hou MD 03/26/2019 09:49 A
[2019-03-26] MEDS: DOXYCYCLINE HYCLATE 100 MG TAB PO SCH ×2 (12:37→21:00)
[2019-03-26 14:00] VITALS: BP 166/56
[2019-03-26] MEDS ORDERED: BUMETANIDE 1 MG TAB PO SCH (14:00)
[2019-03-26] MEDS: ATORVASTATIN 20 MG TAB PO SCH (21:00)
[2019-03-26 22:00] VITALS: BP 162/60
[2019-03-27] MEDS: IPRATROPIUM 0.5MG/ALBUTEROL 2.5MG INH SOL UD 3ML (DUONEB)(J7620) NEB SCH ×3 (01:13→13:33)
[2019-03-27] MEDS: ACETAMINOPHEN 500 MG TAB PO PRN (05:40)
[2019-03-27] MEDS: LEVOTHYROXINE 100MCG TABLET (0.1MG) PO SCH (05:40)
[2019-03-27 06:00] VITALS: BP 167/63
[2019-03-27 06:24] LABS: BASO # 0.1 10^3/uL (0.0-0.2); BASO % 0.4 % (0.0-1.0); EOS % 0.2 % (0.0-3.0); HEMATOCRIT 31.5 % (36.0-47.0); HEMOGLOBIN 9.6 g/dl (12.0-15.5); LYMPH # 1.6 10^3/uL (1.5-5.0); LYMPH % 9.8 % (24.0-44.0); MEAN CORPUSCULAR HEMOGLOBIN 26.7 pg (27.0-33.0); MEAN CORPUSCULAR HGB CONC 30.5 g/dl (32.0-36.5); MEAN CORPUSCULAR VOLUME 87.5 fl (80.0-96.0); NEUTROPHILS # 13.5 10^3/uL (1.5-8.5); NEUTROPHILS % 81.7 % (36.0-66.0); PLATELET COUNT, AUTOMATED 288 10^3/uL (150-450); WHITE BLOOD COUNT 16.5 10^3/uL (4.0-10.0)
[2019-03-27 06:46] LABS: CALCIUM LEVEL 8.8 MG/DL (8.8-10.2); CREATININE FOR GFR 1.55 MG/DL (0.55-1.30); GLOMERULAR FILTRATION RATE 34.2 (>32); POTASSIUM SERUM 3.6 MEQ/L (3.5-5.1)
[2019-03-27] MEDS: MIRALAX *UNIT DOSE* 17GM PACKET PO SCH (09:00)
[2019-03-27] MEDS: CALCITRIOL 0.25 MCG CAP (S0169) PO SCH (09:15)
[2019-03-27] MEDS: ASPIRIN 81 MG ENTERIC TAB PO SCH (09:15)
[2019-03-27] MEDS: DOXYCYCLINE HYCLATE 100 MG TAB PO SCH (09:15)
[2019-03-27] MEDS: OMEPRAZOLE 20 MG CAP PO SCH (09:15)
[2019-03-27 09:16] VITALS: BP 167/63
[2019-03-27] MEDS: LOSARTAN 25 MG TAB PO SCH (09:16)
[2019-03-27] MEDS: POTASSIUM CHLORIDE 10 MEQ SR TABLET PO SCH (09:16)
[2019-03-27] MEDS: AMIODARONE 200 MG TAB (PACERONE) PO SCH (09:16)
[2019-03-27] MEDS: predniSONE 20 MG TAB PO SCH (09:16)
[2019-03-27] MEDS: busPIRone 10 MG TAB PO SCH (09:16)
[2019-03-27] MEDS: BUMETANIDE 1 MG TAB PO SCH (09:17)
[2019-03-27] MEDS: APIXABAN 2.5 MG TAB (ELIQUIS) PO SCH (09:18)
[2019-03-27] MEDS: HumaLOG INSULIN (NovoLOG) PER UNIT SC SCH ×2 (09:18→12:17)
[2019-03-27] MEDS: diltiaZEM **CD** 180 MG CAP PO SCH (09:25)
[2019-03-27] MEDS: IPRATROPIUM 0.5MG/ALBUTEROL 2.5MG INH SOL UD 3ML (DUONEB)(J7620) NEB PRN (11:31)
[2019-03-27] MEDS ORDERED: BUME2TAB3 PO (12:05)
[2019-03-27] MEDS ORDERED: DOXY100T PO (12:05)
[2019-03-27] MEDS ORDERED: PRED20TA PO (12:05)
--- NOTE | 2019-03-30 21:12 | DSES ---
DATE OF ADMISSION: 03/17/2019 DATE OF DISCHARGE: REASON FOR ADMISSION: The patient presented to emergency department with complaint of abdominal pain. Right basilar infiltrate previously noted on CT scan improved, but she had CT evidence of diverticulitis. She was admitted initially and put on Cipro and metronidazole with some improvement but then seemed to have increased symptoms, so on March 23, repeat imaging of her abdomen showed improvement in diverticulitis but new left basal infiltrate. This was interpreted as being a hospital-acquired pneumonia, and she had demonstrated positive PCR-determined methicillin-resistant Staphylococcus aureus screen was positive, so metronidazole was stopped, vancomycin started. Because of new pneumonia, meropenem was added intravenous (IV) every 12 hours. She received this for 3 days and then switched on March 26 to doxycycline 100 mg by mouth twice a day. On the basis of clinical improvement, decreased symptoms, less dyspnea with exertion, and absent abdominal pain, edema which had been present before had also begun to improve; however, her left basal infiltrate had actually looked a little worse on the x-ray done on March 26, but overall clinical indicators were mostly showing improvement with decreasing white count from 18,000 to 5.9. This morning she has rebounded slightly to 16.5 but remains afebrile and no increase in dyspnea. Chronic kidney disease is stable with a creatinine of 1.55, BUN 37, potassium 3.6. Hemoglobin 9.6. Diabetes has remained less than ideally controlled with sugars ranging from 205 to as high as the low 500s during her hospital stay, precipitated worsening presumably secondary to steroid use and systematic decision to withhold basal insulin. At this time she is clinically improved and stable on oral antibiotic regimen; therefore, it should be reasonably safe to discharge her back to home, although she has multiple chronic problems, which increase the probability of outpatient treatment failure. 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 She is not a candidate for open surgery and requires transcatheter aortic valve replacement (TAVR), for which her valve disease is not sufficiently severe according to current guidelines and, of course, her diabetes mellitus. DISCHARGE MEDICATIONS: Include: - bumetanide 4 mg the morning and 2 mg in the afternoon - doxycycline 100 mg by mouth twice a day, which she will do for 9 more days - prednisone 20 mg daily for 5 days, then 10 mg daily for 4 days, then stop She will continue her preadmission medications. These were: - albuterol nebulizers 2.5 mg as needed - amiodarone 200 mg daily - apixaban 2.5 mg twice a day - aspirin 81 mg daily - atorvastatin 40 mg at bedtime - buspirone 10 mg three times a day - calcitriol 0.25 mg daily - calcium with vitamin D 650/12.5 chews, she has one daily - diltiazem 180 mg daily from - formoterol performance 20 mcg via nebulizer twice a day - insulin glargine 28 units at bedtime - levofloxacin 100 mg daily - losartan 25 mg daily - meclizine 25 mg as needed for dizzy/vertigo symptoms - nitroglycerin 0.4 mg as needed for chest pain - omeprazole 20 mg daily - senna 17.2 mg as needed for constipation Discontinued or modified medications include modification of bumetanide dose, discontinuation of cefdinir, new prescription for doxycycline as noted, and prednisone taper. Activity as tolerated. Continue oxygen supplementation at home per usual. Currently on 3 liters nasal cannula. Activity will be as tolerated. If she becomes dyspneic with minimal exertion, she will require a followup on her chest x-ray, and left basal infiltrate should be followed to resolution. It may be necessary to do a CT, but this seems less likely. Followup with cardiology per her routine schedule. She will followup with primary care physician within a week, since this is for sure a highly complex patient and discharge. DISCHARGE DIAGNOSES: 1. Diverticulitis. 2. Hospital-acquired pneumonia, left lower lung field, organized and not specified. 3. Positive nasal screen for methicillin-resistant Staphylococcus aureus colonization. 4. Diabetes mellitus, type 2. 5. Chronic kidney disease associated with diabetes mellitus, type 2, stage III. 6. Anemia, multifactorial. MCV is normal. Anemia of chronic disease.
== END 2019-03-27 13:15 | disposition home health service (06) | DRG 391 ==
LOC: M ED 10:38 → EDBD 10:38 → M ED INP 16:25 → M MSPAV 17:52
PROVIDERS: ADMIT Family Medicine; ATTEND Family Medicine
DX: K57.32 Diverticulitis of large intestine without perforation or abscess without bleeding (principal); J18.9 Pneumonia, unspecified organism; I48.20 Chronic atrial fibrillation, unspecified; I50.32 Chronic diastolic (congestive) heart failure; I13.0 Hypertensive heart and chronic kidney disease with heart failure and stage 1 through stage 4 chronic kidney disease, or unspecified chronic kidney disease; R91.8 Other nonspecific abnormal finding of lung field; J44.9 Chronic obstructive pulmonary disease, unspecified; G47.33 Obstructive sleep apnea (adult) (pediatric); E03.2 Hypothyroidism due to medicaments and other exogenous substances; D50.9 Iron deficiency anemia, unspecified; N18.3 Chronic kidney disease, stage 3 (moderate); E11.22 Type 2 diabetes mellitus with diabetic chronic kidney disease; I25.10 Atherosclerotic heart disease of native coronary artery without angina pectoris; Z95.5 Presence of coronary angioplasty implant and graft; K21.9 Gastro-esophageal reflux disease without esophagitis; E78.2 Mixed hyperlipidemia; R42 Dizziness and giddiness; I27.81 Cor pulmonale (chronic); I35.2 Nonrheumatic aortic (valve) stenosis with insufficiency; I27.20 Pulmonary hypertension, unspecified; Z79.899 Other long term (current) drug therapy; Z99.81 Dependence on supplemental oxygen; Z90.49 Acquired absence of other specified parts of digestive tract; Z79.01 Long term (current) use of anticoagulants; Z79.4 Long term (current) use of insulin

== ENCOUNTER 2019-04-02 13:26 | Inpatient (IN) | payer MEDICARE, BC, OTHER ==
[~2019-04-02] VITALS: Ht 160 cm; Wt 77.9 kg
[~2019-04-02 13:26] MED LIST changes: -AZIT500T2 PO; +AZIT500T5 PO; +CEFD1CAP8 PO; +DOXY100T PO; +DOXY100T2 PO
[2019-04-02] MEDS ORDERED: ALBUTEROL SULFATE 2.5 MG/0.5 ML INH NEB SOLN INH ONE (14:15)
[2019-04-02] MEDS ORDERED: IPRATROPIUM 0.5MG/ALBUTEROL 2.5MG INH SOL UD 3ML (DUONEB)(J7620) NEB ONE (14:15)
[2019-04-02] MEDS ORDERED: methylPREDNISolone INJ 125 MG/2 ML VIAL (J2930) IV ONE (14:45)
[2019-04-02 15:07] LABS: BASO % 0.2 % (0.0-1.0); EOS # 0.1 10^3/uL (0.0-0.5); EOS % 0.9 % (0.0-3.0); HEMATOCRIT 33.5 % (36.0-47.0); HEMOGLOBIN 10.1 g/dl (12.0-15.5); LYMPH % 7.4 % (24.0-44.0); MEAN CORPUSCULAR HEMOGLOBIN 27.1 pg (27.0-33.0); MEAN CORPUSCULAR HGB CONC 30.1 g/dl (32.0-36.5); MEAN CORPUSCULAR VOLUME 89.8 fl (80.0-96.0); MONO # 0.9 10^3/uL (0.0-0.8); MONO % 6.5 % (0.0-5.0); NEUTROPHILS # 11.8 10^3/uL (1.5-8.5); NEUTROPHILS % 84.1 % (36.0-66.0); PLATELET COUNT, AUTOMATED 253 10^3/uL (150-450); RED BLOOD COUNT 3.73 10^6/uL (4.00-5.40); WHITE BLOOD COUNT 14.1 10^3/uL (4.0-10.0)
--- NOTE | 2019-04-02 15:20 | REP ---
Two-view chest: 04/03/2019. Indication: Dyspnea. Comparison: 03/26/2019. Findings: There is improved aeration of the left lower lobe as well as diminished left pleural effusion. The right lung is clear. The cardiac silhouette and atherosclerotic aorta are unchanged. Impression: Improved aeration of the left lower lobe as well as diminished left-sided pleural effusion. The right lung is clear. Electronically Signed by Onur Peace DO 04/02/2019 03:12 P
[2019-04-02] MEDS ORDERED: BUME2TAB3 PO ×2 (15:27)
[2019-04-02] MEDS ORDERED: DOXY100T PO (15:27)
[2019-04-02] MEDS ORDERED: PRED20TA PO (15:31)
[2019-04-02 15:34] LABS: INFLUENZA A AMPLIFICATION NEGATIVE (NEGATIVE); INFLUENZA B AMPLIFICATION NEGATIVE (NEGATIVE)
[2019-04-02 15:37] LABS: ABG BASE EXCESS 18.3 (-2.0-2.0); ABG HCO3 43.4 MEQ/L (22.0-26.0); ABG O2 SATURATION 92.3 % (95.0-99.0); ABG PARTIAL PRESSURE CO2 53.9 mmHg (35.0-45.0); ABG STANDARD HCO3 42.2 MEQ/L (22.0-26.0); ABG TOTAL CO2 45.1 MEQ/L (23.0-31.0); ABG pH (ARTERIAL) 7.524 UNITS (7.350-7.450)
[2019-04-02 15:40] LABS: BILIRUBIN,DIRECT 0.2 MG/DL (0.0-0.2); BILIRUBIN,TOTAL 0.7 MG/DL (0.2-1.0); CALCIUM LEVEL 9.4 MG/DL (8.8-10.2); CK-MB VALUE MASS 1.4 NG/ML (<3.6); CREATININE FOR GFR 1.66 MG/DL (0.55-1.30); GLOMERULAR FILTRATION RATE 31.6 (>32); MB/CK RELATIVE INDEX 3.04 (< OR =4); POTASSIUM SERUM 3.7 MEQ/L (3.5-5.1); THYROID STIMULATING HORMONE 0.848 uIU/ML (0.358-3.740); THYROXINE (T4) 15.1 UG/DL (4.5-12.0); TOTAL PROTEIN 6.4 GM/DL (6.4-8.2); TROPONIN I 0.06 NG/ML (< 0.10)
[2019-04-02] MEDS ORDERED: FUROSEMIDE 20 MG/2 ML VIAL (J1940) IV ONE (16:30)
[2019-04-02] MEDS ORDERED: DEXTROSE 50% 50 ML SYRINGE IV PRN (17:45)
[2019-04-02] MEDS ORDERED: NITROGLYCERIN 0.4 MG SUBL TABLET SL PRN (17:45)
[2019-04-02] MEDS ORDERED: MECLIZINE 25 MG TABLET PO PRN (17:45)
[2019-04-02] MEDS ORDERED: GLUCOSE 4 GM CHEW TABLET PO PRN (17:45)
[2019-04-02] MEDS ORDERED: GLUCAGON FOR INJ 1 MG VIAL (J1610) SC PRN (17:45)
--- NOTE | 2019-04-02 18:47 | REPVR ---
PROCEDURE INFORMATION: Exam: CT Chest Without Contrast Exam date and time: 04/02/2019 6:05 PM Clinical history: 83 years old, female; Condition or disease; Other: Left pleural effusion TECHNIQUE: Imaging protocol: Computed tomography of the chest without contrast. 3D rendering: MIP reconstructed images were created and reviewed. Radiation optimization: All CT scans at this facility use at least one of these dose optimization techniques: automated exposure control; mA and/or kV adjustment per patient size (includes targeted exams where dose is matched to clinical indication); or iterative reconstruction. COMPARISON: CT Chest without contrast 03/11/2019 5:41 PM FINDINGS: Lungs: Left lower lobe airway filling with posterior medial atelectasis/collapse involving the left lower lobe, new since the prior CT. Pleural space: No pleural effusion or pneumothorax. Heart: Multi-chamber cardiac dilatation is noted. No evidence of acute pulmonary edema. Pulmonary arteries: Enlarged pulmonary outflow tract measuring 5 cm suggests pulmonary hypertension. Aorta: Thoracic aorta is atherosclerotic and ectatic. No focal aneurysm. Great vessels off aortic arch: Atherosclerotic calcifications in the coronary vessels. Lymph nodes: No enlarged mediastinal lymph nodes. Gallbladder and bile ducts: Gallbladder is surgically absent. Bones/joints: Multi-level, age-related thoracic degenerative disc disease is present. Soft tissues: Unremarkable. Other findings: Somewhat limited study without IV contrast and minimal limitation imposed by patient motion. IMPRESSION: 1. No evidence of left pleural effusion. 2. Left lower lobe atelectasis/collapse, with central airway filling suggesting possible aspiration 3. Pulmonary hypertension Electronically signed by: Guy Haq On 04/02/2019 18:47:36 PM
--- NOTE | 2019-04-02 19:05 | HPEPDOC ---
[facility] Medical History & Physical Date of Admission Apr 02, 2019 Date of Service: Apr 02, 2019 History and Physical CHIEF COMPLAINT: Shortness of breath HISTORY OF PRESENT ILLNESS: Miranda Calderon is a 83 year old female with significant past medical history including diabetes, COPD, Hypertension, CHF, Atrial fibrillation, diverticulosis that presents to the Emergency department with shortness of breath. Patient says her shortness of breath has been progressing for the past 3 days. She has been in the hospital in the past for similar symptoms. She said that she went to the clinic yesterday with her daughter and upon returning back home, she was unable to ambulate. She would get short of breath after 2 to 3 steps. Laying down made her symptoms worse but sitting up made it better. She was visibly uncomfortable during the encounter. Patient complains of headache, lightheadedness, coughing with clear sputum production and weakness. She denies fever, nausea, vomiting, diarrhea, chest pain, abdominal pain and confusion. PAST MEDICAL HISTORY: COPD Hypertension Diabetes Mellitus CHF Atrial fibrillation Hyperthyroidism Arthritis Diverticulitis Aortic stenosis PAST SURGICAL HISTORY: Needle biopsy Hysterectomy SOCIAL HISTORY: Tobacco use: hasn't smoked since 1982. Used to smoke 2 packs a day ETOH: Last alcohol was in since 1992 Illicit drug use: None IV drug use: None FAMILY HISTORY: Father: of lung cancer. Also had COPD Mother: of cardiac disease Siblings: last of 11 kids. Brother of heart attack Hereditary Diseases: None ALLERGIES: Please see below. REVIEW OF SYSTEMS: Constitutional- Denies fever, chills and night sweats HEENT- headache and cough but denies hearing loss, ringing sensation, Cardiovascular- denies chest pain or palpation Respiratory- patient is short of breath, but denies gasping Gastrointestinal- denies nausea, vomiting, diarrhea, constipation or abdominal pain Musculoskeletal- weakness iin both upper and lower extremities, Neurological- Patient denies numbness, tingling sensation and syncope Endocrine- denies polyuria, polydipsia, polyphagia Genirourinary- denies hematuria or dysuria Psychology- no anxiety or depression HOME MEDICATIONS: Please see below. PHYSICAL EXAMINATION: VITAL SIGNS: Temperature 99, pulse 167/72, respiratory rate 20, blood pressure 167/72, pulse oximetry 95 % on room air. On her physical exam General- alert, oriented to person, place and time HEENT- Normacephalic, atraumatic, External ear canals patent, Neck- supple without lymphadenopathy Respiratory: thorax symmetric with good expansion, lungs has wheezing, rales or rhonchi, no crackles Cardiovascular- normal s1 and s2, grade 2 systolic ejection murmur, no clicks or rubs Abdominal- no present bowel sounds, nondistended, no tenderness on palpation, soft, no masses noted Extremities- Visible 2mm pitting edema bilaterally, radial, femoral and pedal pulses are palatable Skin- some ulcers, rashes evident on legs LABORATORY DATA: See below. IMAGING: Two-view chest: 04/03/2019. Indication: Dyspnea. Comparison: 03/26/2019. Findings: There is improved aeration of the left lower lobe as well as diminished left pleural effusion. The right lung is clear. The cardiac silhouette and atherosclerotic aorta are unchanged. Impression: Improved aeration of the left lower lobe as well as diminished left-sided pleural effusion. The right lung is clear. Electronically Signed by Onur Peace DO 04/02/2019 03:12 P MICROBIOLOGY: Please see below. Assessment and Plan COPD exacerbation: Patient has chronic COPD. She is short of breath with wheezing and rhonchi on auscultation. X-ray indicates diminished left sided pleural effusion. The right lung is clear. Methylprednisolone 60 Mg IV Q6H ordered Incentive spirometry ordered Leukocyte count elevated.: WBC 14.1, Neutrophil count 84%, likely secondary to steroid use CT chest without contrast for possible infectious cause or cardiac cause Albuterol/Ipratropium 3 ML NEB Monitor Labs: CBC, BMP Respiratory label ordered CHF exacerbation: Patient has chronic history of CHF. Patient had some pitting edema and shortness of breath. Dyspnea and orthopnea evident BNP elevated at 4023 Furosemide 80 mg IV q8h ordered CT chest without contrast ordered History of Atrial Fibrillation- rate controlled. Continue to monitor Cardiorenal syndrome possible: GFR decreased at 31.5, BUN/Creat ratio >20/1 indication possible prerenal azotemia. Monitor Diabetes Mellitus: Status: Chronic Insulin detemir 15 units SC QHS with sliding scale insulin Hyperthyroidism: Patient has elevated T4: 15.1, normal TSH. Monitor labs Levothyroxine sodium 100 MCG PO daily I performed a history and physical examination of the patient and discussed their management with the above documenter. I reviewed the note and agree with the documented findings and plan of care. Vital Signs Vital Signs Date Time Temp Pulse Resp B/P (MAP) Pulse Ox O2 Delivery O2 Flow Rate FiO2 04/02/19 17:01 167/72 (103) 04/02/19 16:56 58 20 95 Nasal Cannula 4.0 04/02/19 13:31 99.0 Laboratory Data Labs 24H Laboratory Tests 2 04/02/19 14:54: Immature Granulocyte % (Auto) 0.9, Neutrophils (%) (Auto) 84.1H, Lymphocytes (%) (Auto) 7.4L, Monocytes (%) (Auto) 6.5H, Eosinophils (%) (Auto) 0.9, Basophils (%) (Auto) 0.2, Neutrophils # (Auto) 11.8H, Lymphocytes # (Auto) 1.0L, Monocytes # (Auto) 0.9H, Eosinophils # (Auto) 0.1, Basophils # (Auto) 0.0, Nucleated Red Blood Cells % (auto) 0.0, Anion Gap 3L, Glomerular Filtration Rate 31.6L, Lactic Acid Level 1.2, Calcium Level 9.4, Total Bilirubin 0.7, Direct Bilirubin 0.2, Aspartate Amino Transf (AST/SGOT) 21, Alanine Aminotransferase (ALT/SGPT) 32, Alkaline Phosphatase 75, Total Creatine Kinase 46, Creatine Kinase MB 1.4, Creatine Kinase MB Relative Index 3.04, Troponin I 0.06, MO-Ebx-K-Type Natriuretic Peptide 4023H, Total Protein 6.4, Albumin 3.0L, Albumin/Globulin Ratio 0.88L, Thyroid Stimulating Hormone (TSH) 0.848, Thyroxine (T4) 15.1H, Influenza Type A (RT-PCR) NEGATIVE, Influenza Type B (RT-PCR) NEGATIVE 04/02/19 15:25: Blood Gas Bicarbonate Standard 42.2H, Arterial Blood pH 7.524H, Arterial Blood Partial Pressure CO2 53.9H, Arterial Blood Partial Pressure O2 60.0L, Arterial Blood Total CO2 45.1H, Arterial Blood HCO3 43.4H, Arterial Blood Base Excess 18.3H, Arterial Blood Oxygen Saturation 92.3L CBC/BMP Laboratory Tests 04/02/19 14:54 Microbiology Microbiology 04/02/19 Blood Culture, Received Pending 04/02/19 Blood Culture, Received Pending Home Medications Scheduled Amiodarone HCl (Amiodarone Hydrochloride) 200 Mg Tab, 200 MG PO QHS Apixaban (Eliquis) 5 Mg Tab, 2.5 MG PO BID Aspirin (Aspirin EC) 81 Mg Tab, 81 MG PO DAILY Atorvastatin Calcium (Atorvastatin Calcium) 80 Mg Tab, 40 MG PO QHS Bumetanide (Bumetanide) 2 Mg Tablet, 4 MG PO DAILY Buspirone HCl (Buspirone HCl) 5 Mg Tab, 10 MG PO TID Calcitriol (Calcitriol) 0.25 Mcg Capsule, 0.25 MCG PO DAILY Calcium Carb/Vitamin D3/Vit K1 (Viactiv 650 mg-12.5 Mcg Chew) 1 Each Tab.chew, 1 CHEW PO DAILY Formoterol Fumarate (Perforomist) 20 Mcg/2 Ml Vial.neb, 1 VIAL INH BID Guaifenesin (Mucinex) 600 Mg Tab.er.12h, 1,200 MG PO BID Insulin Glargine,Hum.rec.anlog (Lantus Solostar) 100 Unit/Ml Inj, 20 UNIT SC QHS Levothyroxine Sodium (Levothyroxine Sodium) 100 Mcg Tab, 100 MCG PO DAILY Losartan Potassium (Losartan Potassium) 25 Mg Tab, 25 MG PO DAILY Moxifloxacin HCl (Moxifloxacin HCl) 400 Mg Tablet, 400 MG PO DAILY@06 Prednisone (Prednisone) 20 Mg Tablet, 40 MG PO DAILY dilTIAZem HCl (Diltiazem 24Hr Cd) 240 Mg Cap.er.24h, 240 MG PO DAILY Scheduled PRN Albuterol Sulf (Albuterol Sulfate) 2.5 Mg/3 Ml Vial.neb, 2.5 MG INH Q4H PRN for SHORTNESS OF BREATH Meclizine HCl (Meclizine HCl) 25 Mg Tablet, 25 MG PO TID PRN for DIZZINESS Nitroglycerin (Nitrostat) 0.4 Mg Subl, 0.4 MG SL NITRO PRN for ANGINA Senna (Senna Lax) 8.6 Mg Tab, 17.2 TAB PO QHS PRN for CONSTIPATION Allergies Coded Allergies: Penicillins (Verified Allergy, Intermediate, rash, 04/02/19) Sulfa (Sulfonamide Antibiotics) (Verified Allergy, Intermediate, rash, 04/02/19) MYA Inhibitors (Verified Adverse Reaction, Mild, cough, 04/02/19) NSAIDS (Non-Steroidal Anti-Inflamma (Verified Adverse Reaction, Mild, GI UPSET DUODENITIS, 04/02/19) A-FIB/CHADSVASC A-FIB History Current/History of A-Fib/PAF?: Yes Current PO Anticoag Therapy: Yes JAMES RAMEY Apr 02, 2019 19:04 SHAHBAZ BEASLEY MD Apr 18, 2019 11:04
[2019-04-02] MEDS: IPRATROPIUM 0.5MG/ALBUTEROL 2.5MG INH SOL UD 3ML (DUONEB)(J7620) NEB SCH (19:56)
--- NOTE | 2019-04-02 20:18 | ECGEPIP ---
[facility] - ED Test Date: 2019-04-02 Pat Name: HEATHER PICHARDO Department: Room: - Gender: Female Intelligence Intern: : 1935 Requested By: Maryan Cheney Order Number: [id number] Reading MD: Maryan Cheney Measurements Intervals [place] Rate: 59 P: 46 ID: [id number] QRS: 98 QRSD: 161 T: 41 QT: 410 QTc: 406 Interpretive Statements SINUS BRADYCARDIA WITH FIRST DEGREE AV BLOCK RIGHT BUNDLE BRANCH BLOCK Right axis deviation 03/17/[address] T WAVE CHANGES Electronically Signed on 04-02-2019 20:18:09 EDT by Maryan Cheney
[2019-04-02] MEDS: AMIODARONE 200 MG TAB (PACERONE) PO SCH (22:31)
[2019-04-02] MEDS: APIXABAN 2.5 MG TAB (ELIQUIS) PO SCH (22:31)
[2019-04-02] MEDS: busPIRone 5 MG TAB PO SCH (22:31)
[2019-04-02] MEDS: ATORVASTATIN 20 MG TAB PO SCH (22:31)
[2019-04-02] MEDS: methylPREDNISolone INJ 125 MG/2 ML VIAL (J2930) IV SCH (22:34)
[2019-04-02] MEDS: HumaLOG INSULIN (NovoLOG) PER UNIT SC SCH (23:16)
[2019-04-02] MEDS: LEVEMIR (INSULIN DETEMIR) 1 UNITS/0.01ML SC SCH (23:26)
[2019-04-03] VITALS (8 sets, daily range): BP systolic 131–164; BP diastolic 54–88
[2019-04-03] MEDS: FUROSEMIDE 100 MG/10 ML VIAL (J1940) IV SCH ×3 (01:25→16:42)
[2019-04-03] MEDS: IPRATROPIUM 0.5MG/ALBUTEROL 2.5MG INH SOL UD 3ML (DUONEB)(J7620) NEB SCH ×3 (01:53→19:39)
[2019-04-03] MEDS: methylPREDNISolone INJ 125 MG/2 ML VIAL (J2930) IV SCH ×4 (04:03→21:23)
[2019-04-03] MEDS: LEVOTHYROXINE 100MCG TABLET (0.1MG) PO SCH (05:30)
[2019-04-03 06:18] LABS: HEMATOCRIT 32.6 % (36.0-47.0); HEMOGLOBIN 9.9 g/dl (12.0-15.5); MEAN CORPUSCULAR HGB CONC 30.4 g/dl (32.0-36.5); MEAN CORPUSCULAR VOLUME 89.1 fl (80.0-96.0); PLATELET COUNT, AUTOMATED 225 10^3/uL (150-450); RED BLOOD COUNT 3.66 10^6/uL (4.00-5.40); WHITE BLOOD COUNT 11.1 10^3/uL (4.0-10.0)
[2019-04-03 06:43] LABS: CALCIUM LEVEL 8.8 MG/DL (8.8-10.2); CREATININE FOR GFR 1.68 MG/DL (0.55-1.30); GLOMERULAR FILTRATION RATE 31.1 (>32); POTASSIUM SERUM 3.4 MEQ/L (3.5-5.1)
[2019-04-03] MEDS: CALCITRIOL 0.25 MCG CAP (S0169) PO SCH (09:13)
[2019-04-03] MEDS: PANTOPRAZOLE 40MG TAB (PROTONIX) PO SCH (09:13)
[2019-04-03] MEDS: ASPIRIN 81 MG ENTERIC TAB PO SCH (09:13)
[2019-04-03] MEDS: busPIRone 5 MG TAB PO SCH ×3 (09:14→21:23)
[2019-04-03] MEDS: APIXABAN 2.5 MG TAB (ELIQUIS) PO SCH ×2 (09:14→21:23)
[2019-04-03] MEDS: diltiaZEM **CD** 180 MG CAP PO SCH (09:15)
[2019-04-03] MEDS: LOSARTAN 25 MG TAB PO SCH (09:15)
[2019-04-03] MEDS: HumaLOG INSULIN (NovoLOG) PER UNIT SC SCH ×4 (09:16→21:25)
--- NOTE | 2019-04-03 16:11 | IPNPDOC ---
Subjective Date Seen The patient was seen on 04/03/19. Subjective Chief Complaint/HPI at baseline dyspnea Constitutional: Denies: Chills Eyes: Denies: Pain ENT: Denies: Ear Pain Skin: Denies: Rash, Lesions Pulmonary: Reports: Dyspnea Cardiovascular: Denies: Chest Pain Gastrointestinal: Denies: Nausea, Vomiting Genitourinary: Denies: Dysuria Objective Physical Examination General Exam: Positive: Alert Eye Exam: Positive: PERRLA Neck Exam: Positive: JVD Chest Exam: Positive: Diminished Abdomen Exam: Positive: Normal bowel sounds Extremity Exam: Positive: Edema Assessment /Plan Problems (1) Diastolic CHF, chronic Permanent Comment: ECHO 08/2018: CONCLUSIONS: 1. Severe focal thickening and focal calcific deposits of a 3-cusp aortic valve with severe reduction in aortic cusp mobility. Aortic valve stenosis considered to be severe on the basis of aortic valve area calculation (0.74 cm) and dimensionless index (0.23). Aortic valve stenosis considered to be moderate on the basis of peak aortic valve velocity (3.4 cm/sec) and mean aortic valve gradient (30 mmHg). 2. Mild concentric left ventricle hypertrophy. No regional LV wall motion abnormalities. Normal regional LV wall motion and wall thickening. Left ventricular ejection fraction of 65% by visual estimate. Normal LV systolic function. Grade II LV diastolic dysfunction (normal filling pattern). 3. Moderate left atrial dilatation. 4. Severe mitral annular calcification. Very mild mitral regurgitation. No mitral stenosis. 5. Suggestive of moderate elevation of estimated right ventricle systolic pressure (47 mmHg). Mild tricuspid regurgitation. Normal right ventricle size and systolic function. Inferior vena cava dilatation suggestive of elevated central venous pressure of at least 20 mmHg. ADDITIONAL COMMENTS AND RECOMMENDATIONS: Consider aortic valve replacement if the patient is a suitable candidate. DD: Hai Orellana MD, [facility] 08/20/18 1436 Last Edited By: Toni Lewis MD on Mar 21, 2019 18:47 Status: Acute Problem Text: -900 since 04/02 admission on fur 80 IV q8H 04/02 BNP 4023 (03/11 2168) (2) Acute and chronic respiratory failure with hypoxia Problem Text: chronic 3L NC 04/03 + guai and Acapella to attempt to improve LLL aeration 04/02 BCX2 NG 04/02 RESP PCR - 04/02/19 CT chest: . No evidence of left pleural effusion. 2. Left lower lobe atelectasis/collapse, with central airway filling suggesting possible aspiration 3. Pulmonary hypertension (3) Aortic stenosis, severe Status: Chronic (4) COPD (chronic obstructive pulmonary disease) Status: Chronic Problem Text: c acute mild flare MP 60 q6H (5) JASPAL (obstructive sleep apnea) Status: Chronic (6) Atrial fibrillation Status: Chronic (7) Diabetes mellitus Status: Chronic Problem Text: HD glar 31 BG 200s on det 15 (8) Hypothyroidism Status: Chronic Problem Text: on HD LT4 100 (9) Anemia Status: Acute Problem Text: at baseline hgb 9s (10) CKD (chronic kidney disease) stage 3, GFR 30-59 ml/min Status: Chronic Problem Text: at baseline cr 1.5-1.7 Plan/VTE VTE Prophylaxis Ordered?: Yes VS, I&O, 24H, Fishbone Vital Signs/I&O Vital Signs Date Time Temp Pulse Resp B/P (MAP) Pulse Ox O2 Delivery O2 Flow Rate FiO2 04/03/19 14:30 59 163/57 (92) 62 156/56 (89) 64 154/55 (88) 04/03/19 14:00 99.3 18 93 Nasal Cannula 3.0 I&O- Last 24 Hours up to 6 AM 04/03/19 06:00 Intake Total 0 ml Output Total 550 ml Balance -550 ml Laboratory Data 24H LABS Laboratory Tests 2 04/02/19 23:14: Bedside Glucose (Misc Panel) 220H 04/03/19 05:42: Nucleated Red Blood Cells % (auto) 0.0, Anion Gap 3L, Glomerular Filtration Rate 31.1L, Calcium Level 8.8 CBC/BMP Laboratory Tests 04/03/19 05:42 Microbiology Microbiology 04/03/19 Respiratory Virus Panel (PCR) (CATHY) - Final, Complete 04/02/19 Blood Culture - Preliminary, Resulted No growth after 24 hours . All specim... 04/02/19 Blood Culture - Preliminary, Resulted No growth after 24 hours . All specim... Leroy Rueda M.D. Apr 03, 2019 16:11
[2019-04-03] MEDS: ACETAMINOPHEN TAB 650MG DOSE (2X325MG) PO PRN (16:41)
[2019-04-03] MEDS: guaiFENesin ER 600 MG TAB PO SCH (21:23)
[2019-04-03] MEDS: ATORVASTATIN 20 MG TAB PO SCH (21:24)
[2019-04-03] MEDS: LEVEMIR (INSULIN DETEMIR) 1 UNITS/0.01ML SC SCH (21:24)
[2019-04-03] MEDS: AMIODARONE 200 MG TAB (PACERONE) PO SCH (21:24)
[2019-04-04] MEDS: FUROSEMIDE 100 MG/10 ML VIAL (J1940) IV SCH ×2 (01:02→09:29)
[2019-04-04] MEDS: IPRATROPIUM 0.5MG/ALBUTEROL 2.5MG INH SOL UD 3ML (DUONEB)(J7620) NEB SCH ×4 (01:45→20:34)
[2019-04-04] MEDS: methylPREDNISolone INJ 125 MG/2 ML VIAL (J2930) IV SCH ×2 (03:10→09:29)
[2019-04-04] MEDS: LEVOTHYROXINE 100MCG TABLET (0.1MG) PO SCH (05:25)
[2019-04-04 05:55] LABS: HEMATOCRIT 29.7 % (36.0-47.0); HEMOGLOBIN 9.1 g/dl (12.0-15.5); MEAN CORPUSCULAR HEMOGLOBIN 26.7 pg (27.0-33.0); MEAN CORPUSCULAR HGB CONC 30.6 g/dl (32.0-36.5); MEAN CORPUSCULAR VOLUME 87.1 fl (80.0-96.0); PLATELET COUNT, AUTOMATED 241 10^3/uL (150-450); RED BLOOD COUNT 3.41 10^6/uL (4.00-5.40); WHITE BLOOD COUNT 15.2 10^3/uL (4.0-10.0)
[2019-04-04 06:00] VITALS: BP 163/65
[2019-04-04 06:17] LABS: CALCIUM LEVEL 8.7 MG/DL (8.8-10.2); CREATININE FOR GFR 2.05 MG/DL (0.55-1.30); GLOMERULAR FILTRATION RATE 24.7 (>32); MAGNESIUM LEVEL 2.4 MG/DL (1.8-2.4); POTASSIUM SERUM 3.3 MEQ/L (3.5-5.1)
[2019-04-04] MEDS: CALCITRIOL 0.25 MCG CAP (S0169) PO SCH (09:25)
[2019-04-04] MEDS: PANTOPRAZOLE 40MG TAB (PROTONIX) PO SCH (09:25)
[2019-04-04] MEDS: APIXABAN 2.5 MG TAB (ELIQUIS) PO SCH ×2 (09:26→21:24)
[2019-04-04] MEDS: busPIRone 5 MG TAB PO SCH ×3 (09:26→21:48)
[2019-04-04] MEDS: ASPIRIN 81 MG ENTERIC TAB PO SCH (09:26)
[2019-04-04] MEDS: guaiFENesin ER 600 MG TAB PO SCH ×2 (09:26→21:24)
[2019-04-04] MEDS: diltiaZEM **CD** 180 MG CAP PO SCH (09:28)
[2019-04-04] MEDS: LOSARTAN 25 MG TAB PO SCH (09:28)
[2019-04-04] MEDS: HumaLOG INSULIN (NovoLOG) PER UNIT SC SCH ×4 (09:30→21:25)
[2019-04-04 14:00] VITALS: BP 163/62
--- NOTE | 2019-04-04 16:56 | IPNPDOC ---
Subjective Date Seen The patient was seen on 04/04/19. Subjective Chief Complaint/HPI at baseline dyspnea Constitutional: Denies: Chills, Fever Eyes: Denies: Pain ENT: Denies: Head Aches Skin: Denies: Rash, Lesions Pulmonary: Denies: Dyspnea Cardiovascular: Denies: Chest Pain, Palpitations Gastrointestinal: Denies: Nausea, Vomiting Objective Physical Examination General Exam: Positive: Alert Eye Exam: Positive: PERRLA Neck Exam: Positive: JVD Chest Exam: Positive: Diminished Abdomen Exam: Positive: Normal bowel sounds Extremity Exam: Positive: Edema Assessment /Plan Problems (1) Diastolic CHF, chronic Permanent Comment: ECHO 08/2018: CONCLUSIONS: 1. Severe focal thickening and focal calcific deposits of a 3-cusp aortic valve with severe reduction in aortic cusp mobility. Aortic valve stenosis considered to be severe on the basis of aortic valve area calculation (0.74 cm) and dimensionless index (0.23). Aortic valve stenosis considered to be moderate on the basis of peak aortic valve velocity (3.4 cm/sec) and mean aortic valve gradient (30 mmHg). 2. Mild concentric left ventricle hypertrophy. No regional LV wall motion abnormalities. Normal regional LV wall motion and wall thickening. Left ventricular ejection fraction of 65% by visual estimate. Normal LV systolic function. Grade II LV diastolic dysfunction (normal filling pattern). 3. Moderate left atrial dilatation. 4. Severe mitral annular calcification. Very mild mitral regurgitation. No mitral stenosis. 5. Suggestive of moderate elevation of estimated right ventricle systolic pressure (47 mmHg). Mild tricuspid regurgitation. Normal right ventricle size and systolic function. Inferior vena cava dilatation suggestive of elevated central venous pressure of at least 20 mmHg. ADDITIONAL COMMENTS AND RECOMMENDATIONS: Consider aortic valve replacement if the patient is a suitable candidate. DD: Hai Orellana MD, [facility] 08/20/18 1436 Last Edited By: Toni Lewis MD on Mar 21, 2019 18:47 Status: Acute Problem Text: -2l since 04/02 admission 04/04 to 54/2.1, 3.3/2.4 c BNP to 2993; therefore, fur 80 IV q8H to HD bum 09/15 and held los 25 04/02 BNP 4023 (03/11 2168) (2) Acute and chronic respiratory failure with hypoxia Problem Text: chronic 3L NC 04/03 + guai and Acapella to attempt to improve LLL aeration 04/02 BCX2 NG 04/02 RESP PCR - 04/02/19 CT chest: . No evidence of left pleural effusion. 2. Left lower lobe atelectasis/collapse, with central airway filling suggesting possible aspiration 3. Pulmonary hypertension (3) Aortic stenosis, severe Status: Chronic Problem Text: [facility] and Dr. Herring felt too high risk for TAVR (4) COPD (chronic obstructive pulmonary disease) Status: Chronic Problem Text: c acute mild flare SM 40 q8 (5) JASPAL (obstructive sleep apnea) Status: Chronic (6) Atrial fibrillation Status: Chronic Problem Text: RC dilt CD [address] (7) Diabetes mellitus Status: Chronic Problem Text: HD glar 31 04/04 increased to 25 BG 300s on det 15 (8) Hypothyroidism Status: Chronic Problem Text: on HD LT4 100 (9) Anemia Status: Acute Problem Text: at baseline hgb 9s (10) CKD (chronic kidney disease) stage 3, GFR 30-59 ml/min Status: Chronic Problem Text: baseline cr 1.5-1.7 Plan/VTE VTE Prophylaxis Ordered?: Yes VS, I&O, 24H, Fishbone Vital Signs/I&O Vital Signs Date Time Temp Pulse Resp B/P (MAP) Pulse Ox O2 Delivery O2 Flow Rate FiO2 04/04/19 14:00 98.2 60 17 163/62 (95) 97 Nasal Cannula 3.0 I&O- Last 24 Hours up to 6 AM 04/04/19 05:59 Intake Total 1110 ml Output Total 2400 ml Balance -1290 ml Laboratory Data 24H LABS Laboratory Tests 2 04/03/19 20:39: Bedside Glucose (Misc Panel) 392H 04/04/19 05:18: Nucleated Red Blood Cells % (auto) 0.0, Anion Gap 6L, Glomerular Filtration Rate 24.7L, Calcium Level 8.7L, Magnesium Level 2.4, KU-Hwp-[id number]-Type Natriuretic Pe ptide 2993H CBC/BMP Laboratory Tests 04/04/19 05:18 Microbiology Microbiology 04/03/19 Respiratory Virus Panel (PCR) (CATHY) - Final, Complete 04/02/19 Blood Culture - Preliminary, Resulted No Growth after 48 hours. All Specime... 04/02/19 Blood Culture - Preliminary, Resulted No Growth after 48 hours. All Specime... Mohit,Leroy E. M.D. IVETTE Apr 04, 2019 16:56
[2019-04-04] MEDS: BUMETANIDE 1 MG TAB PO SCH (17:57)
[2019-04-04] MEDS: methylPREDNISolone INJ 40 MG/1 ML VIAL (J2920) IV SCH (17:57)
[2019-04-04] MEDS ORDERED: POTASSIUM CHLORIDE 10 MEQ SR TABLET PO ONE (18:00)
[2019-04-04] MEDS: ATORVASTATIN 20 MG TAB PO SCH (21:24)
[2019-04-04] MEDS: AMIODARONE 200 MG TAB (PACERONE) PO SCH (21:24)
[2019-04-04] MEDS: LEVEMIR (INSULIN DETEMIR) 1 UNITS/0.01ML SC SCH (21:26)
[2019-04-04 22:00] VITALS: BP 156/60
[2019-04-05] MEDS: IPRATROPIUM 0.5MG/ALBUTEROL 2.5MG INH SOL UD 3ML (DUONEB)(J7620) NEB SCH ×4 (00:12→20:00)
[2019-04-05] MEDS: methylPREDNISolone INJ 40 MG/1 ML VIAL (J2920) IV SCH ×3 (02:37→17:33)
[2019-04-05 04:28] VITALS: BP_SYST 171; BP_SYST 175; BP_SYST 178; BP_DIAS 74; BP_DIAS 75
[2019-04-05 04:30] VITALS: BP 150/74
[2019-04-05] MEDS: LEVOTHYROXINE 100MCG TABLET (0.1MG) PO SCH (05:46)
[2019-04-05 06:00] VITALS: BP 159/87
[2019-04-05 06:15] LABS: HEMATOCRIT 29.8 % (36.0-47.0); HEMOGLOBIN 9.1 g/dl (12.0-15.5); MEAN CORPUSCULAR HEMOGLOBIN 26.5 pg (27.0-33.0); MEAN CORPUSCULAR HGB CONC 30.5 g/dl (32.0-36.5); MEAN CORPUSCULAR VOLUME 86.9 fl (80.0-96.0); PLATELET COUNT, AUTOMATED 263 10^3/uL (150-450); RED BLOOD COUNT 3.43 10^6/uL (4.00-5.40); WHITE BLOOD COUNT 15.6 10^3/uL (4.0-10.0)
[2019-04-05 06:40] LABS: CALCIUM LEVEL 9.1 MG/DL (8.8-10.2); CREATININE FOR GFR 1.69 MG/DL (0.55-1.30); GLOMERULAR FILTRATION RATE 30.9 (>32); POTASSIUM SERUM 4.2 MEQ/L (3.5-5.1)
[2019-04-05] MEDS: APIXABAN 2.5 MG TAB (ELIQUIS) PO SCH ×2 (09:09→21:50)
[2019-04-05] MEDS: BUMETANIDE 1 MG TAB PO SCH ×2 (09:09→16:34)
[2019-04-05] MEDS: PANTOPRAZOLE 40MG TAB (PROTONIX) PO SCH (09:09)
[2019-04-05] MEDS: ASPIRIN 81 MG ENTERIC TAB PO SCH (09:09)
[2019-04-05] MEDS: CALCITRIOL 0.25 MCG CAP (S0169) PO SCH (09:09)
[2019-04-05] MEDS: guaiFENesin ER 600 MG TAB PO SCH ×2 (09:09→21:50)
[2019-04-05] MEDS: HumaLOG INSULIN (NovoLOG) PER UNIT SC SCH ×4 (09:09→21:51)
[2019-04-05] MEDS: busPIRone 5 MG TAB PO SCH ×3 (09:10→21:50)
[2019-04-05] MEDS: diltiaZEM **CD** 180 MG CAP PO SCH (09:12)
[2019-04-05] MEDS ORDERED: MEROPENEM INJ 1 GM in IV 1 EA IV SCH (11:15)
[2019-04-05] MEDS: SODIUM CHLORIDE HYPERTONIC 3% 15ML NEB SOL INH SCH ×3 (11:19→20:53)
--- NOTE | 2019-04-05 11:19 | IPNPDOC ---
Subjective Date Seen The patient was seen on 04/05/19. Subjective Chief Complaint/HPI still dyspneic with minimal activity Constitutional: Denies: Chills ENT: Denies: Head Aches Pulmonary: Reports: Dyspnea; Denies: Pleuritic Chest Pain Cardiovascular: Denies: Chest Pain Gastrointestinal: Denies: Nausea, Abdominal Pain Hematologic: Denies: Bruising Neurological: Denies: Change in speech, Confusion Psych: Reports: Mood Normal Objective Physical Examination General Exam: Positive: Alert Eye Exam: Positive: PERRLA Neck Exam: Positive: JVD Chest Exam: Positive: Diminished (no rales heard so far.); Negative: Rales, Rhonchi Heart Exam: Positive: Regular Rhythm, Murmurs (at base. ) Abdomen Exam: Positive: Normal bowel sounds, Soft; Negative: Tenderness Extremity Exam: Positive: Edema (puffy lower legs but no pitting today.) Psych Exam: Positive: Mental status NL Assessment /Plan Problems (1) Diastolic CHF, chronic Permanent Comment: ECHO 08/2018: CONCLUSIONS: 1. Severe focal thickening and focal calcific deposits of a 3-cusp aortic valve with severe reduction in aortic cusp mobility. Aortic valve stenosis considered to be severe on the basis of aortic valve area calculation (0.74 cm) and dimensionless index (0.23). Aortic valve stenosis considered to be moderate on t he basis of peak aortic valve velocity (3.4 cm/sec) and mean aortic valve gradient (30 mmHg). 2. Mild concentric left ventricle hypertrophy. No regional LV wall motion abnormalities. Normal regional LV wall motion and wall thickening. Left ventricular ejection fraction of 65% by visual estimate. Normal LV systolic function. Grade II LV diastolic dysfunction (normal filling pattern). 3. Moderate left atrial dilatation. 4. Severe mitral annular calcification. Very mild mitral regurgitation. No mitral stenosis. 5. Suggestive of moderate elevation of estimated right ventricle systolic pressure (47 mmHg). Mild tricuspid regurgitation. Normal right ventricle size and systolic function. Inferior vena cava dilatation suggestive of elevated central venous pressure of at least 20 mmHg. ADDITIONAL COMMENTS AND RECOMMENDATIONS: Consider aortic valve replacement if the patient is a suitable candidate. DD: Hai Orellana MD, [facility] 08/20/18 1436 Last Edited By: Toni Lewis MD on Mar 21, 2019 18:47 Status: Acute Problem Text: -2l since 04/02 admission 04/04 to 54/2.1, 3.3/2.4 c BNP to 2993; therefore, fur 80 IV q8H to HD bum 4/ and held los 25 04/02 BNP 4023 (03/11 2168) (2) Acute and chronic respiratory failure with hypoxia Problem Text: 04/05: reviewed CT with Dr. Nielsen who agrees there is left lower lobe volume loss with obstruction visible. Consult requested. She has required bronch in the past to clear. White count remains elevated. Not currently on antibiotic. Will start meropenem. Relatively low cross reaction risk in pcn allergy patient. chronic 3L NC 04/03 + guai and Acapella to attempt to improve LLL aeration 04/02 BCX2 NG 04/02 RESP PCR - 04/02/19 CT chest: . No evidence of left pleural effusion. 2. Left lower lobe atelectasis/collapse, with central airway filling suggesting possible aspiration 3. Pulmonary hypertension (3) Aortic stenosis, severe Status: Chronic Response to Treatment: Stable Problem Text: [facility] and Dr. Herring felt too high risk for TAVR (4) COPD (chronic obstructive pulmonary disease) Status: Chronic Problem Text: presumed contributor to LLL volume loss. SoluMedrol 40 q8 (5) JASPAL (obstructive sleep apnea) Status: Chronic (6) Atrial fibrillation Status: Chronic Problem Text: RC dilt CD 180.ECG: Sinus maday on admission. stroke prophylaxis on Eliquis at 2.5, bid. (7) Diabetes mellitus Status: Chronic Problem Text: HD glar 31 04/04 increased to 25 BG 300s on det 15 (8) Hypothyroidism Status: Chronic Problem Text: on HD LT4 100 (9) Anemia Status: Acute Problem Text: at baseline hgb 9s (10) CKD (chronic kidney disease) stage 3, GFR 30-59 ml/min Status: Chronic Problem Text: baseline cr 1.5-1.7 Plan/VTE VTE Prophylaxis Ordered?: Yes VS, I&O, 24H, Fishbone Vital Signs/I&O Vital Signs Date Time Temp Pulse Resp B/P (MAP) Pulse Ox O2 Delivery O2 Flow Rate FiO2 04/05/19 09:12 56 164/57 04/05/19 06:00 97.5 20 96 Nasal Cannula 4.0 I&O- Last 24 Hours up to 6 AM 04/05/19 06:00 Intake Total 1410 ml Output Total 2170 ml Balance -760 ml Laboratory Data 24H LABS Laboratory Tests 2 04/04/19 11:30: Bedside Glucose (Misc Panel) 435H 04/04/19 16:36: Bedside Glucose (Misc Panel) 460H 04/04/19 20:55: Bedside Glucose (Misc Panel) 421H 04/05/19 05:46: Nucleated Red Blood Cells % (auto) 0.0, Anion Gap 5L, Glomerular Filtration Rate 30.9L, Calcium Level 9.1 CBC/BMP Laboratory Tests 04/05/19 05:46 Microbiology Microbiology 04/03/19 Respiratory Virus Panel (PCR) (CATHY) - Final, Complete 04/02/19 Blood Culture - Preliminary, Resulted No Growth after 48 hours. All Specime... 04/02/19 Blood Culture - Preliminary, Resulted No Growth after 48 hours. All Specime... David Pollack MD Apr 05, 2019 11:19
[2019-04-05] MEDS: MEROPENEM INJ 500 MG in IV 1 EA IV SCH (13:10)
[2019-04-05 14:00] VITALS: BP 177/61
--- NOTE | 2019-04-05 15:12 | CR ---
DATE OF SERVICE: 04/05/2019 We were asked by the medicine team for consultation on Miranda Calderon, who was admitted for acute on chronic respiratory failure. 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 She is followed for COPD. She has been hospitalized in the past for breathing issues and did undergo bronchoscopy for mucus plugging in August [address] Bermeo. The patient reports that her breathing had been worsening over a recent short period time to the point where she came to the emergency department on Friday for increased dyspnea. She was admitted for acute on chronic congestive heart failure and for acute on chronic respiratory failure. She is requiring supplemental oxygen. Chest CT was obtained that does show a left lower lobe obstructive airway. She is getting guaifenesin. She was started on meropenem. She was started on Solu-Medrol. She is getting nebs and some saline nebs were also ordered to help for mucus mobilization. Pulmonary team was consulted to help assist. REVIEW OF SYSTEMS: The patient denies fevers, chills, night sweats, unexplained weight loss. The patient denies any difficulty swallowing or loss of appetite. HEENT: The patient denies double or blurry vision. Denies epistaxis. Denies any recent upper respiratory infection issues. Cardiac: The patient denies chest pain or palpitations. Does have a history of atrial fibrillation and is on Eliquis. Does note some intermittent lower extremity edema. Pulmonary: See above. Gastrointestinal (GI): The patient denies nausea, vomiting, diarrhea, constipation, abdominal pain. Does have a history of diverticulitis and was hospitalized with diverticulitis earlier this month. Genitourinary (): The patient denies dysuria or hematuria. Hematology: The patient denies any bleeding issues. States that she has received blood transfusions in the past. Denies any current bleeding problems. Denies any hemoptysis, hematemesis, hematuria or bright red blood per rectum. Musculoskeletal: The patient denies any joint pain or joint swelling. Endocrine: The patient denies any hot or cold intolerance. Neurologic: The patient denies any seizures. MEDICATIONS: - albuterol nebulizers every 6 hours and every 2 hours as needed - Protonix 40 mg daily - amiodarone 200 mg by mouth daily - Eliquis 2.5 mg by mouth twice a day - aspirin 81 mg by mouth daily - Lipitor 40 mg by mouth nightly - BuSpar 10 mg by mouth three times a day - calcitriol 0.25 mcg by mouth daily - diltiazem 180 mg by mouth daily - Synthroid 100 mcg by mouth daily - Antivert 25 mg three times a day as needed - meropenem 500 mg intravenously every 12 hours - nitroglycerin as needed - sliding-scale insulin - guaifenesin 1200 mg by mouth twice a day - acetaminophen 650 mg by mouth every 6 hours as needed - Bumex 4 mg every morning and 6 mg every evening - Levemir 25 units subcutaneous nightly - Solu-Medrol 40 mg intravenously every 8 hours ALLERGIES: ANGIOTENSIN-CONVERTING ENZYME (MYA) INHIBITORS. NONSTEROIDAL ANTI-INFLAMMATORY DRUGS (NSAIDS). PENICILLIN. SULFA. SOCIAL HISTORY: The patient is a former smoker, who quit in 1982 after smoking a pack a day for 26 years. The patient stopped drinking in 1990. The patient denies any illicit drug use. PHYSICAL EXAMINATION: Vital signs: Temperature 97.5, pulse 56, respiratory rate 20, blood pressure is 164/57, pulse oximetry 96% on 4 liters by nasal cannula. General: The patient is alert and oriented times three. Mood and affect appropriate. The patient speaks in complete sentences. HEENT: Head is normocephalic, atraumatic. Pupils are reactive. Moist mucous membranes. Tongue is midline. Neck: Neck is supple. No cervical lymphadenopathy. No jugular venous distention (JVD). Trachea is midline. Cardiac: Irregularly irregular. Pulmonary: Diminished breath sounds over the left base. No crackles, wheezes, rales or rhonchi appreciated. No dullness to percussion. No accessory muscle use. Abdomen: Positive bowel sounds. Soft. Nontender. No rebound or guarding. Extremities: Trace lower extremity edema. Skin: Skin is warm and dry. LABORATORY DATA: WBC 15.6, hemoglobin 9.1, hematocrit 29.8, platelets 263. Sodium 138, potassium 4.2, chloride 94, carbon dioxide 39, BUN 59, creatinine 1.69, glucose 200, calcium 9.1. Chest CT from 04/02/2019 was reviewed and shows left lower lobe obstructive airway. ASSESSMENT AND PLAN: Bronchiectasis. Will try to mobilize the patient's secretions and work towards mucociliary clearance. Will order chest PT. The patient can continue the Acapella. She is getting Solu-Medrol and was started on meropenem. Nebulized saline has been added. Will work towards clearance of the left lower lobe obstructive airway. If we do not succeed in clearing the mucus with these means, then would consider bronchoscopy for clearance of the mucus plugging. Will continue to follow along.
[2019-04-05] MEDS: FORMOTEROL FUMARATE 20 MCG/2 ML INHALATION SOLUTION (PERFOROMIST) INH SCH (20:53)
[2019-04-05] MEDS: ATORVASTATIN 20 MG TAB PO SCH (21:50)
[2019-04-05] MEDS: LEVEMIR (INSULIN DETEMIR) 1 UNITS/0.01ML SC SCH (21:51)
[2019-04-05] MEDS: AMIODARONE 200 MG TAB (PACERONE) PO SCH (21:52)
[2019-04-05 22:00] VITALS: BP 152/60
[2019-04-06] MEDS: methylPREDNISolone INJ 40 MG/1 ML VIAL (J2920) IV SCH ×3 (01:43→17:22)
[2019-04-06] MEDS: MEROPENEM INJ 500 MG in IV 1 EA IV SCH ×2 (01:43→12:57)
[2019-04-06] MEDS: IPRATROPIUM 0.5MG/ALBUTEROL 2.5MG INH SOL UD 3ML (DUONEB)(J7620) NEB SCH ×5 (01:59→23:31)
[2019-04-06 06:00] VITALS: BP 118/64
[2019-04-06] MEDS: LEVOTHYROXINE 100MCG TABLET (0.1MG) PO SCH (06:12)
[2019-04-06 06:15] LABS: HEMATOCRIT 29.8 % (36.0-47.0); HEMOGLOBIN 9.1 g/dl (12.0-15.5); MEAN CORPUSCULAR HEMOGLOBIN 26.8 pg (27.0-33.0); MEAN CORPUSCULAR HGB CONC 30.5 g/dl (32.0-36.5); MEAN CORPUSCULAR VOLUME 87.9 fl (80.0-96.0); PLATELET COUNT, AUTOMATED 252 10^3/uL (150-450); RED BLOOD COUNT 3.39 10^6/uL (4.00-5.40); WHITE BLOOD COUNT 12.8 10^3/uL (4.0-10.0)
[2019-04-06 06:40] LABS: CALCIUM LEVEL 8.1 MG/DL (8.8-10.2); CREATININE FOR GFR 1.56 MG/DL (0.55-1.30); GLOMERULAR FILTRATION RATE 33.9 (>32); POTASSIUM SERUM 3.8 MEQ/L (3.5-5.1)
[2019-04-06] MEDS: SODIUM CHLORIDE HYPERTONIC 3% 15ML NEB SOL INH SCH ×6 (08:33→23:32)
[2019-04-06] MEDS: FORMOTEROL FUMARATE 20 MCG/2 ML INHALATION SOLUTION (PERFOROMIST) INH SCH ×2 (08:33→18:09)
[2019-04-06] MEDS: ASPIRIN 81 MG ENTERIC TAB PO SCH (08:56)
[2019-04-06] MEDS: APIXABAN 2.5 MG TAB (ELIQUIS) PO SCH ×2 (08:56→21:54)
[2019-04-06] MEDS: PANTOPRAZOLE 40MG TAB (PROTONIX) PO SCH (08:56)
[2019-04-06] MEDS: HumaLOG INSULIN (NovoLOG) PER UNIT SC SCH ×4 (08:56→21:55)
[2019-04-06] MEDS: BUMETANIDE 1 MG TAB PO SCH ×2 (08:57→16:35)
[2019-04-06] MEDS: guaiFENesin ER 600 MG TAB PO SCH ×2 (08:57→21:53)
[2019-04-06] MEDS: CALCITRIOL 0.25 MCG CAP (S0169) PO SCH (08:57)
[2019-04-06] MEDS: busPIRone 5 MG TAB PO SCH ×3 (08:57→21:54)
[2019-04-06] MEDS: diltiaZEM **CD** 180 MG CAP PO SCH (09:00)
--- NOTE | 2019-04-06 10:50 | IPNPDOC ---
Subjective Date Seen The patient was seen on 04/06/19. Subjective Chief Complaint/HPI [facility] Sats this morning were in the 90s. She reports the Acapella devise hurts her chest Constitutional: Denies: Chills, Fever Pulmonary: Reports: Dyspnea; Denies: Cough Cardiovascular: Denies: Chest Pain, Palpitations, Orthopnea Gastrointestinal: Denies: Nausea, Vomiting, Abdominal Pain, Diarrhea, C onstipation Objective Physical Examination General Exam: Positive: Alert Eye Exam: Positive: PERRLA Neck Exam: Positive: JVD Chest Exam: Positive: Diminished (no rales heard so far.); Negative: Rales, Rhonchi Heart Exam: Positive: Regular Rhythm, Murmurs (at base. ) Abdomen Exam: Positive: Normal bowel sounds, Soft; Negative: Tenderness Extremity Exam: Negative: Edema Psych Exam: Positive: Mental status NL Assessment /Plan Problems (1) Diastolic CHF, chronic Permanent Comment: ECHO 08/2018: CONCLUSIONS: 1. Severe focal thickening and focal calcific deposits of a 3-cusp aortic valve with severe reduction in aortic cusp mobility. Aortic valve stenosis considered to be severe on the basis of aortic valve area calculation (0.74 cm) and dimensionless index (0.23). Aortic valve stenosis considered to be moderate on the basis of peak aortic valve velocity (3.4 cm/sec) and mean aortic valve gradient (30 mmHg). 2. Mild concentric left ventricle hypertrophy. No regional LV wall motion abnormalities. Normal regional LV wall motion and wall thickening. Left ventricular ejection fraction of 65% by visual estimate. Normal LV systolic function. Grade II LV diastolic dysfunction (normal filling pattern). 3. Moderate left atrial dilatation. 4. Severe mitral annular calcification. Very mild mitral regurgitation. No bienvenido l stenosis. 5. Suggestive of moderate elevation of estimated right ventricle systolic pressure (47 mmHg). Mild tricuspid regurgitation. Normal right ventricle size and systolic function. Inferior vena cava dilatation suggestive of elevated central venous pressure of at least 20 mmHg. ADDITIONAL COMMENTS AND RECOMMENDATIONS: Consider aortic valve replacement if the patient is a suitable candidate. DD: Hai rOellana MD, [facility] 08/20/18 1436 Last Edited By: Toni Lewis MD on Mar 21, 2019 18:47 Status: Acute Problem Text: 04/06 - Appears Euvolemic on Bumex 4 mg am/2 mg pm -2l since 04/02 admission 04/04 to 54/2.1, 3.3/2.4 c BNP to 2993; therefore, fur 80 IV q8H to HD bum 4/ and held los 25 04/02 BNP 4023 (03/11 2168) (2) Acute and chronic respiratory failure with hypoxia Problem Text: 04/06 - Pulmonary has seen patient in consultation. Getting Acapella for mucous plugging/bronchiectasis but patient reports this hurts her chest. Still with Dyspnea - defer to pulm ?need for bronch cont Meropenem \ 04/05: reviewed CT with Dr. Nielsen who agrees there is left lower lobe volume loss with obstruction visible. Consult requested. She has required bronch in the past to clear. White count remains elevated. Not currently on antibiotic. Will start meropenem. Relatively low cross reaction risk in pcn allergy patient. chronic 3L NC 04/03 + guai and Acapella to attempt to improve LLL aeration 04/02 BCX2 NG 04/02 RESP PCR - 04/02/19 CT chest: . No evidence of left pleural effusion. 2. Left lower lobe atelectasis/collapse, with central airway filling suggesting possible aspiration 3. Pulmonary hypertension (3) Aortic stenosis, severe Status: Chronic Response to Treatment: Stable Problem Text: [facility] and Dr. Herring felt too high risk for TAVR (4) COPD (chronic obstructive pulmonary disease) Status: Chronic Problem Text: presumed contributor to LLL volume loss. SoluMedrol 40 q8 Nebs alb/Ipra (5) JASPAL (obstructive sleep apnea) Status: Chronic (6) Atrial fibrillation Status: Chronic Problem Text: RC dilt CD 180. Also on Amiodarone. ECG: Sinus maday on admission. HR running 50s and 60s per VS stroke prophylaxis on Eliquis at 2.5, bid. (7) Diabetes mellitus Status: Chronic Problem Text: 04/06 - Blood sugars in 400s secondary to steroids - Increase Glar 04/04 increased to 25 BG 300s on det 15 (8) Hypothyroidism Status: Chronic Problem Text: on HD LT4 100 (9) Anemia Status: Acute Problem Text: at baseline hgb 9s (10) CKD (chronic kidney disease) stage 3, GFR 30-59 ml/min Status: Chronic Problem Text: baseline cr 1.5-1.7 Plan/VTE VTE Prophylaxis Ordered?: Yes Plan Therapy: PT VS, I&O, 24H, Fishbone Vital Signs/I&O Vital Signs Date Time Temp Pulse Resp B/P (MAP) Pulse Ox O2 Delivery O2 Flow Rate FiO2 04/06/19 09:00 76 144/50 04/06/19 06:00 98.6 20 96 Nasal Cannula 4.0 I&O- Last 24 Hours up to 6 AM 04/06/19 06:00 Intake Total 1780 ml Output Total 1900 ml Balance -120 ml Laboratory Data 24H LABS Laboratory Tests 2 04/05/19 12:13: Bedside Glucose (Misc Panel) 365H 04/05/19 16:53: Bedside Glucose (Misc Panel) 369H 04/05/19 20:54: Bedside Glucose (Misc Panel) 447H 04/06/19 05:59: Nucleated Red Blood Cells % (auto) 0.0, Anion Gap 4L, Glomerular Filtration Rate 33.9, Calcium Level 8.1L CBC/BMP Laboratory Tests 04/06/19 05:59 Microbiology Microbiology 04/03/19 Respiratory Virus Panel (PCR) (CATH[facility]) - Final, Complete 04/02/19 Blood Culture - Preliminary, Resulted No Growth after 72 hours. All specime... 04/02/19 Blood Culture - Preliminary, Resulted No Growth after 72 hours. All specime... OSCAR ORTEZ PA-C Apr 06, 2019 10:50
[2019-04-06] MEDS: ACETAMINOPHEN TAB 650MG DOSE (2X325MG) PO PRN ×2 (11:55→11:59)
--- NOTE | 2019-04-06 12:39 | CCN ---
DATE OF SERVICE: 04/06/2019 PULMONARY NOTE: Ms. Calderon is seen on [facility]. She reports overall she feels about the same. She continues to have some shortness of breath. She has been getting chest PT as well as using her Acapella. She states she has been able to raise a little bit of sputum. She denies fevers or chills. She is getting nebs as well as nebulized saline. PHYSICAL EXAMINATION: Vital signs: Temperature is 98.6, pulse 76, respiratory rate 20, blood pressure 144/50, pulse oximetry 96% on 4 liters by nasal cannula. General: The patient is alert and oriented times three. She is sitting up in a chair. She speaks in complete sentences. During our conversation she was able to cough up a significant amount of sputum. HEENT: Head is normocephalic, atraumatic. Moist mucous membranes. Tongue is midline. Neck: Neck is supple. No cervical lymphadenopathy. No jugular venous distention (JVD). Trachea is midline. Cardiac: Irregularly irregular. Pulmonary: Diminished breath sounds over the left base. No wheezes, rales or rhonchi appreciated. No dullness to percussion. No accessory muscle use. Abdomen: Positive bowel sounds, soft, nontender. No rebound or guarding. Extremities: Trace lower extremity edema. Skin: Skin is warm and dry. LABORATORY DATA: WBC 12.8, hemoglobin of 9.1, hematocrit 29.8, platelets 252. Sodium 138, potassium 3.8, chloride 95, carbon dioxide 39, BUN 62, creatinine 1.56, glucose 205, calcium 8.1. ASSESSMENT/PLAN: Bronchiectasis. Will continue to work towards mobilizing the patient's mucus and work towards mucociliary clearance. She is getting chest PT. She is using Acapella. She is getting nebulized saline. She is on meropenem and Solu-Medrol. Plan will be to consider obtaining a chest CT in 2 days, which would be . We are continuing to work towards mucociliary clearance. If the patient fails mucociliary clearance with these measurejs, then would consider bronchoscopy.
[2019-04-06 14:00] VITALS: BP 132/65
[2019-04-06] MEDS: IPRATROPIUM 0.5MG/ALBUTEROL 2.5MG INH SOL UD 3ML (DUONEB)(J7620) NEB PRN (16:19)
[2019-04-06] MEDS ORDERED: LEVEMIR (INSULIN DETEMIR) 1 UNITS/0.01ML SC SCH (21:00)
[2019-04-06] MEDS: AMIODARONE 200 MG TAB (PACERONE) PO SCH (21:54)
[2019-04-06] MEDS: ATORVASTATIN 20 MG TAB PO SCH (21:54)
[2019-04-06 22:00] VITALS: BP 166/62
[2019-04-07] MEDS: MEROPENEM INJ 500 MG in IV 1 EA IV SCH ×2 (01:10→12:22)
[2019-04-07] MEDS: methylPREDNISolone INJ 40 MG/1 ML VIAL (J2920) IV SCH ×3 (02:19→17:56)
[2019-04-07] MEDS: SODIUM CHLORIDE HYPERTONIC 3% 15ML NEB SOL INH SCH ×5 (04:00→16:00)
[2019-04-07] MEDS: LEVOTHYROXINE 100MCG TABLET (0.1MG) PO SCH (05:50)
[2019-04-07 06:00] VITALS: BP 144/60
[2019-04-07 06:19] LABS: HEMATOCRIT 30.7 % (36.0-47.0); HEMOGLOBIN 9.4 g/dl (12.0-15.5); MEAN CORPUSCULAR HEMOGLOBIN 26.9 pg (27.0-33.0); MEAN CORPUSCULAR HGB CONC 30.6 g/dl (32.0-36.5); PLATELET COUNT, AUTOMATED 256 10^3/uL (150-450); RED BLOOD COUNT 3.49 10^6/uL (4.00-5.40); WHITE BLOOD COUNT 12.4 10^3/uL (4.0-10.0)
[2019-04-07 06:37] LABS: CALCIUM LEVEL 8.2 MG/DL (8.8-10.2); CREATININE FOR GFR 1.48 MG/DL (0.55-1.30); POTASSIUM SERUM 3.7 MEQ/L (3.5-5.1)
[2019-04-07] MEDS: APIXABAN 2.5 MG TAB (ELIQUIS) PO SCH ×2 (07:40→21:04)
[2019-04-07] MEDS: PANTOPRAZOLE 40MG TAB (PROTONIX) PO SCH (07:40)
[2019-04-07] MEDS: guaiFENesin ER 600 MG TAB PO SCH ×2 (07:41→21:04)
[2019-04-07] MEDS: ASPIRIN 81 MG ENTERIC TAB PO SCH (07:41)
[2019-04-07] MEDS: busPIRone 5 MG TAB PO SCH (07:41)
[2019-04-07] MEDS: diltiaZEM **CD** 180 MG CAP PO SCH (07:41)
[2019-04-07] MEDS: CALCITRIOL 0.25 MCG CAP (S0169) PO SCH (07:41)
[2019-04-07] MEDS: HumaLOG INSULIN (NovoLOG) PER UNIT SC SCH ×4 (07:42→21:09)
[2019-04-07] MEDS: BUMETANIDE 1 MG TAB PO SCH ×2 (07:42→17:56)
[2019-04-07] MEDS: IPRATROPIUM 0.5MG/ALBUTEROL 2.5MG INH SOL UD 3ML (DUONEB)(J7620) NEB SCH ×3 (07:45→20:34)
[2019-04-07] MEDS: FORMOTEROL FUMARATE 20 MCG/2 ML INHALATION SOLUTION (PERFOROMIST) INH SCH ×3 (07:45→20:33)
[2019-04-07 14:00] VITALS: BP 142/65
[2019-04-07] MEDS ORDERED: LIDOCAINE 1% MDV 20ML VIAL As Ordered ONE (16:24)
[2019-04-07] MEDS: busPIRone 10 MG TAB PO SCH ×2 (17:56→21:03)
[2019-04-07] MEDS: ACETAMINOPHEN TAB 650MG DOSE (2X325MG) PO PRN (18:59)
[2019-04-07] MEDS: ATORVASTATIN 20 MG TAB PO SCH (21:03)
[2019-04-07] MEDS: AMIODARONE 200 MG TAB (PACERONE) PO SCH (21:04)
[2019-04-07] MEDS: LEVEMIR (INSULIN DETEMIR) 1 UNITS/0.01ML SC SCH (21:04)
[2019-04-07] MEDS ORDERED: SIMETHICONE 80 MG CHEW TAB PO PRN (21:15)
[2019-04-07 22:00] VITALS: BP 148/68
[2019-04-08] MEDS: MEROPENEM INJ 500 MG in IV 1 EA IV SCH ×2 (01:35→12:56)
[2019-04-08] MEDS: methylPREDNISolone INJ 40 MG/1 ML VIAL (J2920) IV SCH ×3 (01:35→17:02)
[2019-04-08] MEDS: IPRATROPIUM 0.5MG/ALBUTEROL 2.5MG INH SOL UD 3ML (DUONEB)(J7620) NEB SCH ×5 (02:30→23:52)
[2019-04-08 06:00] VITALS: BP 138/86
[2019-04-08] MEDS: LEVOTHYROXINE 100MCG TABLET (0.1MG) PO SCH (06:01)
[2019-04-08 06:22] LABS: HEMATOCRIT 29.3 % (36.0-47.0); HEMOGLOBIN 8.9 g/dl (12.0-15.5); MEAN CORPUSCULAR HEMOGLOBIN 26.4 pg (27.0-33.0); MEAN CORPUSCULAR HGB CONC 30.4 g/dl (32.0-36.5); MEAN CORPUSCULAR VOLUME 86.9 fl (80.0-96.0); PLATELET COUNT, AUTOMATED 255 10^3/uL (150-450); RED BLOOD COUNT 3.37 10^6/uL (4.00-5.40); WHITE BLOOD COUNT 12.7 10^3/uL (4.0-10.0)
[2019-04-08 06:42] LABS: CALCIUM LEVEL 8.2 MG/DL (8.8-10.2); CREATININE FOR GFR 1.47 MG/DL (0.55-1.30); GLOMERULAR FILTRATION RATE 36.3 (>32)
[2019-04-08] MEDS: SODIUM CHLORIDE HYPERTONIC 3% 15ML NEB SOL INH SCH ×5 (07:43→23:52)
[2019-04-08] MEDS: FORMOTEROL FUMARATE 20 MCG/2 ML INHALATION SOLUTION (PERFOROMIST) INH SCH ×2 (07:43→19:36)
[2019-04-08] MEDS: CALCITRIOL 0.25 MCG CAP (S0169) PO SCH (08:23)
[2019-04-08] MEDS: PANTOPRAZOLE 40MG TAB (PROTONIX) PO SCH (08:23)
[2019-04-08] MEDS: busPIRone 10 MG TAB PO SCH ×3 (08:23→20:10)
[2019-04-08] MEDS: ASPIRIN 81 MG ENTERIC TAB PO SCH (08:23)
[2019-04-08] MEDS: guaiFENesin ER 600 MG TAB PO SCH ×2 (08:23→20:10)
[2019-04-08] MEDS: diltiaZEM **CD** 180 MG CAP PO SCH (08:24)
[2019-04-08] MEDS: APIXABAN 2.5 MG TAB (ELIQUIS) PO SCH (08:24)
[2019-04-08] MEDS: BUMETANIDE 1 MG TAB PO SCH ×2 (08:24→17:02)
[2019-04-08] MEDS: HumaLOG INSULIN (NovoLOG) PER UNIT SC SCH ×4 (08:25→20:11)
--- NOTE | 2019-04-08 11:57 | IPN ---
DATE OF VISIT: 04/07/2019 SUBJECTIVE: The patient feels about the same, cough is unchanged. She has no pleuritic pain with deep inspiration. She is no worse, no better. No diarrhea. No headache. No nausea. OBJECTIVE: Vital signs: Show pressures ranging between 142/65 to 170/72, oxygen saturation is 95% on 4 liters, probably more than she really needs to be receiving. Laboratory data are remarkable only for white count, which has improved somewhat from previous level down to 12,400. Sodium remained satisfactory at 148, potassium 3.7, creatinine has gradually and slowly continued to improve, now down to 1.48. ASSESSMENT: Left lower lobe lung volume loss related to obstructive process, chronic congestive failure, aortic stenosis, chronic kidney disease stage IV to stage III, now improving to stage III, history of atrial fibrillation, and diabetes mellitus type 2. PLAN: To continue antibiotic at this point. CT chest is planned by pulmonary group to evaluate whether she might be a candidate for bronchoscopy to alleviate the obstruction. She has been receiving intensified pulmonary toilet and normal saline nebs along with Mucinex in an effort to clear the obstruction. If there is no improvement on her CT tomorrow, then likely will be candidate for bronchoscopy.
--- NOTE | 2019-04-08 12:10 | IPNPDOC ---
Subjective Date Seen The patient was seen on 04/08/19. Subjective Chief Complaint/HPI still dyspneic but no CP General: Denies: ROS Unobtainable Skin: Denies: Rash Pulmonary: Reports: Dyspnea; Denies: Pleuritic Chest Pain Cardiovascular: Denies: Chest Pain, Palpitations Gastrointestinal: Denies: Nausea, Abdominal Pain Hematologic: Reports: Bruising, Petecchia Musculoskeletal: Denies: Neck Pain Neurological: Reports: Weakness (global.) Objective Physical Examination General Exam: Positive: Alert Eye Exam: Positive: PERRLA Neck Exam: Positive: JVD Chest Exam: Positive: Wheezing (faint.), Diminished (no rales heard so far.); Negative: Rales, Rhonchi Heart Exam: Positive: Regular Rhythm, Murmurs (at base. ) Abdomen Exam: Positive: Normal bowel sounds, Soft; Negative: Tenderness Extremity Exam: Negative: Edema Skin Exam: Positive: Nl turgor and temperature (edema but no pitting.) Psych Exam: Positive: Mental status NL Assessment /Plan Problems (1) Acute and chronic respiratory failure with hypoxia Problem Text: 04/08: no re-expansion, pulmonary planning bronch tomorrow. 04/06 - Pulmonary has seen patient in consultation. Getting Acapella for mucous plugging/bronchiectasis but patient reports this hurts her chest. Still with Dyspnea - defer to pulm ?need for bronch cont Meropenem \ 04/05: reviewed CT with Dr. Nielsen who agrees there is left lower lobe volume loss with obstruction visible. Consult requested. She has required bronch in the past to clear. White count remains elevated. Not currently on antibiotic. Will start meropenem. Relatively low cross reaction risk in pcn allergy patient. chronic 3L NC 04/03 + guai and Acapella to attempt to improve LLL aeration 04/02 BCX2 NG 04/02 RESP PCR - 04/02/19 CT chest: . No evidence of left pleural effusion. 2. Left lower lobe atelectasis/collapse, with central airway filling suggesting possible aspiration 3. Pulmonary hypertension (2) Diastolic CHF, chronic Permanent Comment: ECHO 08/2018: CONCLUSIONS: 1. Severe focal thickening and focal calcific deposits of a 3-cusp aortic valve with severe reduction in aortic cusp mobility. Aortic valve stenosis considered to be severe on the basis of aortic valve area calculation (0.74 cm) and dimensionless index (0.23). Aortic valve stenosis considered to be moderate on the basis of peak aortic valve velocity (3.4 cm/sec) and mean aortic valve gradient (30 mmHg). 2. Mild concentric left ventricle hypertrophy. No regional LV wall motion abnormalities. Normal regional LV wall motion and wall thickening. Left ventricular ejection fraction of 65% by visual estimate. Normal LV systolic function. Grade II LV diastolic dysfunction (normal filling pattern). 3. Moderate left atrial dilatation. 4. Severe mitral annular calcification. Very mild mitral regurgitation. No mitral stenosis. 5. Suggestive of moderate elevation of estimated right ventricle systolic pressu re (47 mmHg). Mild tricuspid regurgitation. Normal right ventricle size and systolic function. Inferior vena cava dilatation suggestive of elevated central venous pressure of at least 20 mmHg. ADDITIONAL COMMENTS AND RECOMMENDATIONS: Consider aortic valve replacement if the patient is a suitable candidate. DD: Hai Orellana MD, [facility] 08/20/18 1436 Last Edited By: Toni Lewis MD on Mar 21, 2019 18:47 Status: Acute Response to Treatment: Stable Problem Text: 04/08: stable, no rales 04/06 - Appears Euvolemic on Bumex 4 mg am/2 mg pm -2l since 04/02 admission 04/04 to 54/2.1, 3.3/2.4 c BNP to 2993; therefore, fur 80 IV q8H to HD bum 4/2 and held los 25 04/02 BNP 4023 (03/11 2168) (3) Aortic stenosis, severe Status: Chronic Response to Treatment: Stable Problem Text: [facility] and Dr. Herring felt too high risk for TAVR (4) COPD (chronic obstructive pulmonary disease) Status: Chronic Problem Text: presumed contributor to LLL volume loss. SoluMedrol 40 q8 Nebs alb/Ipra (5) JASPAL (obstructive sleep apnea) Status: Chronic (6) Atrial fibrillation Status: Chronic Problem Text: RC dilt CD 180. Also on Amiodarone. ECG: Sinus maday on admission. HR running 50s and 60s per VS stroke prophylaxis on Eliquis at 2.5, bid. (7) Diabetes mellitus Status: Chronic Problem Text: 04/08 control worse secondary to steroid use. 04/06 - Blood sugars in 400s secondary to steroids - Increase Glar 04/04 increased to 25 BG 300s on det 15 (8) Hypothyroidism Status: Chronic Problem Text: on HD LT4 100 (9) Anemia Status: Acute Problem Text: at baseline hgb 9s (10) CKD (chronic kidney disease) stage 3, GFR 30-59 ml/min Status: Chronic Response to Treatment: Improving Problem Text: baseline cr 1.5-1.7 Plan/VTE VTE Prophylaxis Ordered?: Yes Plan Therapy: PT VS, I&O, 24H, Fishbone Vital Signs/I&O Vital Signs Date Time Temp Pulse Resp B/P (MAP) Pulse Ox O2 Delivery O2 Flow Rate FiO2 04/08/19 08:34 4.0 04/08/19 08:24 86 136/74 04/08/19 06:00 97.6 18 100 Nasal Cannula I&O- Last 24 Hours up to 6 AM 04/08/19 06:00 Intake Total 990 ml Output Total 1300 ml Balance -310 ml Laboratory Data 24H LABS Laboratory Tests 2 04/07/19 17:45: Bedside Glucose (Misc Panel) 286H 04/07/19 21:03: Bedside Glucose (Misc Panel) 422H 04/08/19 05:38: Nucleated Red Blood Cells % (auto) 0.0, Anion Gap 6L, Glomerular Filtration Rate 36.3, Calcium Level 8.2L CBC/BMP Laboratory Tests 04/08/19 05:38 Microbiology Microbiology 04/03/19 Respiratory Virus Panel (PCR) ([facility]) - Final, Complete 04/02/19 Blood Culture - Final, Complete NO GROWTH AFTER 5 DAYS 04/02/19 Blood Culture - Final, Complete NO GROWTH AFTER 5 DAYS David Pollack MD Apr 08, 2019 12:10
--- NOTE | 2019-04-08 13:29 | IPN ---
DATE OF SERVICE: 04/08/2019 SUBJECTIVE: Miranda is an 83-year-old female who states she does not feel much better, but no worse than her admission. She continues to have a nonproductive cough. She has increased shortness of breath and dyspnea. No pleurisy or pleuritic chest discomfort. No anginal chest discomfort. Overall, no fevers. White count is trending down. She has had no hemoptysis. No increase in the lower extremity edema. There has been some difficulty with IV access, midline was attempted yesterday which apparently did not go well. She has one antecubital IV in the right arm. PHYSICAL EXAMINATION: Temperature is 97.6, pulse of 86, respiratory rate is 18, blood pressure is 136/74, oxygen saturation 100% on 4 liters, this can be titrated down. General: Awake, alert and oriented. Affect and mood are appropriate. Nutrition are hygiene are good. Nasal mucosa pink and moist without lesions. Oropharynx without erythema or exudate. Mallampati IV. Neck is supple. No tracheal deviation or mass. Lymph Nodes: No cervical, supraclavicular or axillary adenopathy. Cardiac: There is a grade 2/6 systolic murmur. Currently the patient is in sinus rhythm. PMI is nondisplaced. Pulmonary: Decreased breath sounds especially on the left base. I do not auscultate a wheeze currently. There is no dullness to percussion. Overall generalized decreased breath sounds throughout. Slight prolongation in the expiratory phase. Abdomen: Soft, nontender, nondistended. No hepatosplenomegaly. No masses or hernia. Extremities: No significant pitting edema. Minimal nonpitting edema. Some bruising. Right antecubital IV is present. Skin: As mentioned above, some varying stages of bruising. Musculoskeletal: Appropriate for stated age. No evidence joint effusion. LABORATORY EVALUATION: Shows a white blood cell count of 12.7, hemoglobin 8.9, hematocrit of 29.3 with a platelet count of 255. Chemistry: Sodium is 141, potassium 4.0, chloride is 97, bicarb of 38, BUN of 51 with a creatinine of 1.47 which is down from 2.005, calcium 8.2. Arterial blood gas shows a pH on admission that was 7.52, pCO2 of 53 and pAO2 of 60. Chest CT was updated this morning which shows continued obstruction of the left lower lobe bronchus. It appears to be at least the posterior basal segment if not also the lateral basal segment. There is some very minimal effusion. There is emphysema throughout both lung skinner. Bronchiectatic airways bilaterally. Minimal nonspecific ground glass abnormalities in the right base. No evidence of pneumothorax. There is calcification of the aorta and cardiomegaly. There is no report available as of yet from radiology. IMPRESSION: Bronchiectasis with obstructive left lower lobe. Attempts were made for mucociliary clearance with chest PT and nebulization; however, this did not open up the airway. Therefore, we discussed bronchoscopy. I discussed the risks of bronchoscopy. The biggest risk for the patient is actually the sedation involved. Therefore, will attempt to do this under conscious sedation with limited sedation. Other risks involve bleeding. The patient is on Eliquis, this has been stopped. I do not plan on doing any biopsies. However, if there is any obstructive lesion, this may be needed to be performed. I will performed bronchoalveolar lavage (BAL) to see if there is any evidence of ongoing infection. Currently, the patient is on meropenem and continues to be on Solu-Medrol. Will plan for bronchoscopy tomorrow. Nothing by mouth (n.p.o.) after midnight.
--- NOTE | 2019-04-08 13:30 | REP ---
REASON: Followup left lower lobe atelectasis. COMPARISON: Multiple, the latest 04/02/2019, all reviewed. The mediastinum and pulmonary violetta are unchanged. There are no pleural or pericardial effusions. There is no change in the imaged upper abdomen or imaged osseous structures. Evaluation of the lung skinner shows an unchanged wedge shaped opacity in the left lower lobe. There are no new abnormal parenchymal findings. IMPRESSION: 1. No change in the appearance of the left lower lobe atelectasis. An obstructing endobronchial lesion is likely responsible for the finding. Whether this lesion is malignant or benign cannot be stated by this exam. 2. Chronic lung field changes status quo. 3. All other findings are also unchanged compared to the prior exam. Electronically Signed by Mario Espinal DO 04/08/2019 04:55 P
[2019-04-08 14:00] VITALS: BP 138/84
[2019-04-08 19:58] VITALS: BP 170/58
[2019-04-08] MEDS: AMIODARONE 200 MG TAB (PACERONE) PO SCH (20:10)
[2019-04-08] MEDS: ATORVASTATIN 20 MG TAB PO SCH (20:10)
[2019-04-08] MEDS: LEVEMIR (INSULIN DETEMIR) 1 UNITS/0.01ML SC SCH (20:11)
[2019-04-09] VITALS (10 sets, daily range): BP systolic 142–178; BP diastolic 60–80
[2019-04-09] MEDS: MEROPENEM INJ 500 MG in IV 1 EA IV SCH ×2 (00:34→13:21)
[2019-04-09] MEDS: methylPREDNISolone INJ 40 MG/1 ML VIAL (J2920) IV SCH ×2 (00:34→09:09)
[2019-04-09] MEDS: SODIUM CHLORIDE HYPERTONIC 3% 15ML NEB SOL INH SCH ×5 (04:00→21:49)
[2019-04-09] MEDS: LEVOTHYROXINE 100MCG TABLET (0.1MG) PO SCH (05:40)
[2019-04-09 06:19] LABS: HEMATOCRIT 31.9 % (36.0-47.0); HEMOGLOBIN 9.8 g/dl (12.0-15.5); MEAN CORPUSCULAR HEMOGLOBIN 27.2 pg (27.0-33.0); MEAN CORPUSCULAR HGB CONC 30.7 g/dl (32.0-36.5); MEAN CORPUSCULAR VOLUME 88.6 fl (80.0-96.0); PLATELET COUNT, AUTOMATED 264 10^3/uL (150-450); WHITE BLOOD COUNT 15.9 10^3/uL (4.0-10.0)
[2019-04-09 06:47] LABS: CALCIUM LEVEL 8.4 MG/DL (8.8-10.2); CREATININE FOR GFR 1.53 MG/DL (0.55-1.30); GLOMERULAR FILTRATION RATE 34.7 (>32); POTASSIUM SERUM 3.7 MEQ/L (3.5-5.1)
[2019-04-09] MEDS: FORMOTEROL FUMARATE 20 MCG/2 ML INHALATION SOLUTION (PERFOROMIST) INH SCH ×2 (07:25→21:49)
[2019-04-09] MEDS: IPRATROPIUM 0.5MG/ALBUTEROL 2.5MG INH SOL UD 3ML (DUONEB)(J7620) NEB SCH ×3 (07:26→21:49)
[2019-04-09] MEDS ORDERED: SUGAMMADEX SODIUM 500 MG/5 ML VIAL (BRIDION) As Ordered ONE (08:44)
[2019-04-09] MEDS: HumaLOG INSULIN (NovoLOG) PER UNIT SC SCH ×4 (08:49→22:12)
[2019-04-09] MEDS: BUMETANIDE 1 MG TAB PO SCH ×3 (09:00→16:38)
[2019-04-09] MEDS: IPRATROPIUM 0.5MG/ALBUTEROL 2.5MG INH SOL UD 3ML (DUONEB)(J7620) NEB PRN (09:09)
[2019-04-09] MEDS: guaiFENesin ER 600 MG TAB PO SCH ×2 (09:31→22:11)
[2019-04-09] MEDS: ASPIRIN 81 MG ENTERIC TAB PO SCH (09:31)
[2019-04-09] MEDS: busPIRone 10 MG TAB PO SCH ×3 (09:31→22:11)
[2019-04-09] MEDS: PANTOPRAZOLE 40MG TAB (PROTONIX) PO SCH (09:32)
[2019-04-09] MEDS: diltiaZEM **CD** 180 MG CAP PO SCH (09:32)
[2019-04-09] MEDS: CALCITRIOL 0.25 MCG CAP (S0169) PO SCH (09:32)
[2019-04-09] MEDS ORDERED: LIDOCAINE 2% INJ 100 MG/5 ML SDV (FOR ANES.) As Ordered ONE (10:16)
[2019-04-09] MEDS ORDERED: ROCURONIUM BROMIDE 50 MG/5 ML VIAL As Ordered ONE (10:16)
[2019-04-09] MEDS ORDERED: PROPOFOL 200 MG/20 ML VIAL As Ordered ONE (10:16)
[2019-04-09] MEDS ORDERED: fentaNYL 100 MCG/2 ML INJECTION (J3010) As Ordered ONE ×2 (10:17→10:36)
[2019-04-09] MEDS ORDERED: MIDAZOLAM INJ 2 MG/2 ML VIAL (J2250) As Ordered ONE (10:17)
[2019-04-09] MEDS ORDERED: ONDANSETRON 4MG/2ML VIAL (J2405) As Ordered ONE (10:17)
[2019-04-09] MEDS ORDERED: dexameTHASONE 4 MG/ML 1ML VIAL (J1100) As Ordered ONE (10:17)
[2019-04-09] MEDS ORDERED: THROMBIN SOLN 5,000 UNITS VIAL As Ordered ONE (10:57)
[2019-04-09] MEDS ORDERED: LIDOCAINE 1% SDV INJ 30 ML VIAL As Ordered ONE (10:57)
[2019-04-09] MEDS ORDERED: EPINEPHrine 1MG/10ML SYRINGE 1.5IN As Ordered ONE (10:57)
[2019-04-09] MEDS ORDERED: CETACAINE SPRAY 5GM As Ordered ONE (10:58)
[2019-04-09] MEDS ORDERED: LIDOCAINE VISCOUS 2% SOLN 15ML UDC As Ordered ONE (10:58)
[2019-04-09] MEDS: LIDOCAINE 4% TOPICAL SOLN 50 ML BTL As Ordered ONE ×2 (11:40→11:43)
[2019-04-09] MEDS ORDERED: hydrALAZINE INJ 20 MG/ML VIAL As Ordered ONE (11:41)
[2019-04-09] MEDS ORDERED: ONDANSETRON 4MG/2ML VIAL (J2405) IV PRN (12:00)
[2019-04-09] MEDS ORDERED: ACETAMINOPHEN TAB 650MG DOSE (2X325MG) PO ONE (12:00)
--- NOTE | 2019-04-09 12:34 | RO ---
DATE OF PROCEDURE: 04/09/2019 PREOPERATIVE DIAGNOSIS: Abnormal chest CT, obstructed left lower lobe. POSTOPERATIVE DIAGNOSIS: Abnormal chest CT, obstructed left lower lobe. FINDINGS: Obstructed left lower lobe with thick mucus. PROCEDURE: Bronchoscopy with clearance of secretions. PROCEDURALIST: Dr. Nielsen. ASSISTANTS: None. ANESTHESIA: 1 mg of IV Versed. SPECIMENS OBTAINED: None. ESTIMATED BLOOD LOSS: Minimal, none replaced. Total amount lidocaine was 30 mL of 4% and 12 mL of 1%. COMPLICATIONS: Hypoxia. The patient had temporary desaturations down to 74%, which limited procedure. The patient also had hypertension with systolics up to 205 during the procedure. This was a quickly managed by anesthesia. The total time of the procedure was 3 minutes from bronchoscopy down to bronchoscopy out. DESCRIPTION OF PROCEDURE: After informed consent was reviewed with the patient the preoperative area, she was brought back to OR #3. Time-out was performed with two patient identifiers identifying correct site, correct procedure. Posterior airway was anesthetized with lidocaine and Cetacaine spray. After adequate anesthetization of the upper airway, the bite block was placed. 1 mg of Versed was given. Hydralazine was also given to ensure the blood pressure was less than 180 at the start of the procedure. The bronchoscope was then inserted into the airway. The posterior airway was normal. Vocal cords approximated normally. 1% lidocaine was used to anesthetize the airway. I then advanced the bronchoscope through the airway into the trachea where there were thick clear secretions. After clearance of the secretions, I went down to the left lower lobe. A large mucous plug blocking the anterolateral and posterior segments of the left lower lobe was removed. This was slightly brown in coloration. After extracting this mucus plugs, additional mucus follow behind it, which was suctioned. There was evidence of minimal bleeding afterwards but airways were patent. Due to desaturations down to 74%, the procedure was stopped. No sampling could be obtained. The patient recovered with non-rebreather oxygen saturation now on 90% range. Overall, successful with removal of mucus plugging; however, quite tenuous because of oxygen desaturation, Full exam of al airways was not completed. The patient should be followed clinically and with efforts towards mucociliary clearance. [facility] CENTERLouann
--- NOTE | 2019-04-09 13:07 | IPNPDOC ---
Subjective Date Seen The patient was seen on 04/09/19. Subjective Chief Complaint/HPI "never again" Constitutional: Denies: Chills Skin: Denies: Rash Pulmonary: Reports: Dyspnea; Denies: Pleuritic Chest Pain Cardiovascular: Denies: Chest Pain, Palpitations Gastrointestinal: Denies: Nausea, Abdominal Pain Endocrine: Denies: Polydipsia Neurological: Reports: Weakness (diffuse weakness.) Psych: Reports: Mood Normal Objective Physical Examination General Exam: Positive: Alert Eye Exam: Positive: PERRLA ENT Exam: Positive: Atraumatic, Other ENT (somewhat erythematous. no plank) Neck Exam: Positive: JVD Chest Exam: Positive: Wheezing (faint.), Diminished (no rales heard so far.); Negative: Rales, Rhonchi Heart Exam: Positive: Regular Rhythm, Murmurs (at base. ) Abdomen Exam: Positive: Normal bowel sounds, Soft; Negative: Tenderness Extremity Exam: Negative: Edema Skin Exam: Positive: Nl turgor and temperature (edema but no pitting.) Psych Exam: Positive: Mental status NL Assessment /Plan Problems (1) Acute and chronic respiratory failure with hypoxia Problem Text: 04/09: dyspneic. s/p bronchoscopy lot of mucus removed from airway and firm plug was successfully removed, per Dr. Nielsen. Hopefully clinical improvement will follow. White count is up today. Culture was not technically feasible due to patient's rapid desaturation during the procedure. Continue to follow. If WBC climbs consider adding Vanc. If not improving then consider palliative approach. May be candidate for placement Acute Rehab. 04/08: no re-expansion, pulmonary planning bronch tomorrow. 04/06 - Pulmonary has seen patient in consultation. Getting Acapella for mucous plugging/bronchiectasis but patient reports this hurts her chest. Still with Dyspnea - defer to pulm ?need for bronch cont Meropenem \\ 04/05: reviewed CT with Dr. Nielsen who agrees there is left lower lobe volume loss with obstruction visible. Consult requested. She has required bronch in the past to clear. White count remains elevated. Not currently on antibiotic. Will s tart meropenem. Relatively low cross reaction risk in pcn allergy patient. chronic 3L NC 04/03 + guai and Acapella to attempt to improve LLL aeration 04/02 BCX2 NG 04/02 RESP PCR - 04/02/19 CT chest: . No evidence of left pleural effusion. 2. Left lower lobe atelectasis/collapse, with central airway filling suggesting possible aspiration 3. Pulmonary hypertension (2) Diastolic CHF, chronic Permanent Comment: ECHO 08/2018: CONCLUSIONS: 1. Severe focal thickening and focal calcific deposits of a 3-cusp aortic valve with severe reduction in aortic cusp mobility. Aortic valve stenosis considered to be severe on the basis of aortic valve area calculation (0.74 cm) and dimensionless index (0.23). Aortic valve stenosis considered to be moderate on the basis of peak aortic valve velocity (3.4 cm/sec) and mean aortic valve gradient (30 mmHg). 2. Mild concentric left ventricle hypertrophy. No regional LV wall motion abnormalities. Normal regional LV wall motion and wall thickening. Left ventricular ejection fraction of 65% by visual estimate. Normal LV systolic function. Grade II LV diastolic dysfunction (normal filling pattern). 3. Moderate left atrial dilatation. 4. Severe mitral annular calcification. Very mild mitral regurgitation. No mitral stenosis. 5. Suggestive of moderate elevation of estimated right ventricle systolic pressure (47 mmHg). Mild tricuspid regurgitation. Normal right ventricle size and systolic function. Inferior vena cava dilatation suggestive of elevated central venous pressure of at least 20 mmHg. ADDITIONAL COMMENTS AND RECOMMENDATIONS: Consider aortic valve replacement if the patient is a suitable candidate. DD: Hai Orellana MD, [facility] 08/20/18 1436 Last Edited By: Toni Lewis MD on Mar 21, 2019 18:47 Status: Acute Response to Treatment: Stable Problem Text: 04/08: stable, no rales 04/06 - Appears Euvolemic on Bumex 4 mg am/2 mg pm -2l since 04/02 admission 04/04 to 54/2.1, 3.3/2.4 c BNP to 2993; therefore, fur 80 IV q8H to HD bum / and held los 25 04/02 BNP 4023 (03/11 2168) (3) Aortic stenosis, severe Status: Chronic Response to Treatment: Stable Problem Text: [facility] and Dr. Herring felt too high risk for TAVR (4) COPD (chronic obstructive pulmonary disease) Status: Chronic Problem Text: 04/09 will reduce steroid to 20mg daily now that she is post- bronch presumed contributor to LLL volume loss. SoluMedrol 40 q8 Nebs alb/Ipra (5) JASPAL (obstructive sleep apnea) Status: Chronic (6) Atrial fibrillation Status: Chronic Problem Text: RC dilt CD 180. Also on Amiodarone. ECG: Sinus maday on admission. HR running 50s and 60s per VS stroke prophylaxis on Eliquis at 2.5, bid. (7) Diabetes mellitus Status: Chronic Problem Text: 04/09: will expect improvement in control with steroid dose reduction 04/08 control worse secondary to steroid use. 04/06 - Blood sugars in 400s secondary to steroids - Increase Glar 04/04 increased to 25 BG 300s on det 15 (8) Hypothyroidism Status: Chronic Problem Text: on HD LT4 100 (9) Anemia Status: Acute Problem Text: at baseline hgb 9s (10) CKD (chronic kidney disease) stage 3, GFR 30-59 ml/min Status: Chronic Response to Treatment: Improving Problem Text: baseline cr 1.5-1.7 Plan/VTE VTE Prophylaxis Ordered?: Yes Plan Therapy: PT VS, I&O, 24H, Fishbone Vital Signs/I&O Vital Signs Date Time Temp Pulse Resp B/P (MAP) Pulse Ox O2 Delivery O2 Flow Rate FiO2 04/09/19 12:11 98 74 24 184/88 (120) 98 Nasal Cannula 3 I&O- Last 24 Hours up to 6 AM 04/09/19 05:59 Intake Total 1460 ml Output Total 1600 ml Balance -140 ml Laboratory Data 24H LABS Laboratory Tests 2 04/08/19 16:40: Bedside Glucose (Misc Panel) 462H 04/08/19 19:51: Bedside Glucose (Misc Panel) 332H 04/09/19 05:25: Nucleated Red Blood Cells % (auto) 0.0, Anion Gap 4L, Glomerular Filtration Rate 34.7, Calcium Level 8.4L 04/09/19 08:47: Bedside Glucose (Misc Panel) 87 04/09/19 12:03: Bedside Glucose (Misc Panel) 140H 04/09/19 12:39: Bedside Glucose (Misc Panel) 111H CBC/BMP Laboratory Tests 04/09/19 05:25 Microbiology Microbiology 04/03/19 Respiratory Virus Panel (PCR) (CATHY) - Final, Complete 04/02/19 Blood Culture - Final, Complete NO GROWTH AFTER 5 DAYS 10/18/19 Blood Culture - Final, Complete NO GROWTH AFTER 5 DAYS David Pollack MD Apr 09, 2019 13:07
[2019-04-09] MEDS: predniSONE 20 MG TAB PO SCH (13:21)
[2019-04-09] MEDS: APIXABAN 2.5 MG TAB (ELIQUIS) PO SCH ×2 (13:22→22:11)
[2019-04-09] MEDS ORDERED: LOSARTAN 25 MG TAB PO SCH (16:30)
[2019-04-09] MEDS: NYSTATIN 500,000 U/5 ML SUSP UDC SS SCH ×2 (16:38→22:17)
[2019-04-09] MEDS: AMIODARONE 200 MG TAB (PACERONE) PO SCH (22:11)
[2019-04-09] MEDS: ATORVASTATIN 20 MG TAB PO SCH (22:11)
[2019-04-09] MEDS: LEVEMIR (INSULIN DETEMIR) 1 UNITS/0.01ML SC SCH (22:12)
[2019-04-10] MEDS: MEROPENEM INJ 500 MG in IV 1 EA IV SCH ×2 (01:25→13:07)
[2019-04-10] MEDS: IPRATROPIUM 0.5MG/ALBUTEROL 2.5MG INH SOL UD 3ML (DUONEB)(J7620) NEB SCH ×4 (01:55→16:29)
[2019-04-10 02:00] VITALS: BP 170/60
[2019-04-10] MEDS ORDERED: LOSARTAN 25 MG TAB PO SCH (02:15)
[2019-04-10] MEDS: IPRATROPIUM 0.5MG/ALBUTEROL 2.5MG INH SOL UD 3ML (DUONEB)(J7620) NEB PRN ×2 (02:51→21:51)
[2019-04-10] MEDS: SODIUM CHLORIDE HYPERTONIC 3% 15ML NEB SOL INH SCH ×6 (02:51→20:00)
[2019-04-10] MEDS: LEVOTHYROXINE 100MCG TABLET (0.1MG) PO SCH (05:57)
[2019-04-10 06:00] VITALS: BP 168/58
[2019-04-10 07:02] LABS: HEMATOCRIT 31.6 % (36.0-47.0); HEMOGLOBIN 9.7 g/dl (12.0-15.5); MEAN CORPUSCULAR HEMOGLOBIN 26.7 pg (27.0-33.0); MEAN CORPUSCULAR HGB CONC 30.7 g/dl (32.0-36.5); MEAN CORPUSCULAR VOLUME 87.1 fl (80.0-96.0); PLATELET COUNT, AUTOMATED 259 10^3/uL (150-450); RED BLOOD COUNT 3.63 10^6/uL (4.00-5.40); WHITE BLOOD COUNT 17.5 10^3/uL (4.0-10.0)
[2019-04-10 07:20] LABS: CALCIUM LEVEL 8.2 MG/DL (8.8-10.2); CREATININE FOR GFR 1.39 MG/DL (0.55-1.30); GLOMERULAR FILTRATION RATE 38.7 (>32); POTASSIUM SERUM 3.5 MEQ/L (3.5-5.1)
[2019-04-10] MEDS: FORMOTEROL FUMARATE 20 MCG/2 ML INHALATION SOLUTION (PERFOROMIST) INH SCH ×2 (08:22→20:00)
[2019-04-10] MEDS: HumaLOG INSULIN (NovoLOG) PER UNIT SC SCH ×4 (08:40→21:52)
[2019-04-10] MEDS: BUMETANIDE 1 MG TAB PO SCH ×2 (08:40→17:09)
[2019-04-10] MEDS: busPIRone 10 MG TAB PO SCH ×3 (08:40→21:50)
[2019-04-10] MEDS: guaiFENesin ER 600 MG TAB PO SCH ×2 (08:42→21:50)
[2019-04-10] MEDS: ASPIRIN 81 MG ENTERIC TAB PO SCH (08:42)
[2019-04-10] MEDS: APIXABAN 2.5 MG TAB (ELIQUIS) PO SCH ×2 (08:42→21:50)
[2019-04-10] MEDS: PANTOPRAZOLE 40MG TAB (PROTONIX) PO SCH (08:43)
[2019-04-10] MEDS: CALCITRIOL 0.25 MCG CAP (S0169) PO SCH (08:43)
[2019-04-10] MEDS: NYSTATIN 500,000 U/5 ML SUSP UDC SS SCH ×3 (08:43→21:50)
[2019-04-10] MEDS: LOSARTAN 25 MG TAB PO SCH (08:43)
[2019-04-10] MEDS: predniSONE 20 MG TAB PO SCH (08:43)
[2019-04-10 10:00] VITALS: BP 160/62
[2019-04-10 14:00] VITALS: BP 160/60
--- NOTE | 2019-04-10 14:56 | IPN ---
DATE: 04/10/2019 Patient was seen and examined this morning during bedside rounds. The patient had a bronchoscopy performed yesterday given her persistent mucus plugging in the left lower lobe. On bronchoscopy the patient was noted to have thick clear secretions in the trachea. In the left lower lobe she had a large mucus plug blocking the left lower lobe anterolateral basilar and posterior basilar segments. It was slightly brown in discoloration. Patient was able to have successful removal of the mucus plug with some suctioning of additional mucous afterwards. There were some scant bleeding in her mucosa, but is not significant. She did have desaturation during the procedure so a complete examination of all her airways and BAL was not able to be performed. Postprocedure, the patient's oxygenation did improve. This morning she does feel that there is some slight improvement in her breathing, but the patient continues to report sensation of mucus in her chest with difficulty expectorating mucus currently. She had previously been using a percussion vest as well as Acapella with nebulizer treatments without any improvement. PHYSICAL EXAMINATION: Temperature 98.6, pulse 74, respirations 20, blood pressure 160/58, O2 sat 100% on 4 liters nasal cannula. General: The patient is awake and alert, is sitting in the bed in no acute respiratory distress, but is speaking in short sentences. HEENT is normocephalic, atraumatic. Moist mucous membranes. Neck is supple. Trachea is midline. No palpable adenopathy. Cardiovascular: Irregularly irregular, normal S1-S2, faint systolic murmur auscultated. Pulmonary: Diminished breath sounds bilaterally with some faint rhonchi and wheezing. Improved breath sounds over the left side. Abdomen is soft, nontender, nondistended. Extremities: There is trace lower extremity edema bilaterally. ASSESSMENT/PLAN: Ms. Calderon is an 83-year-old female with a past medical history of diabetes, hypertension, atrial fibrillation, congestive heart failure (CHF), chronic obstructive pulmonary disease (COPD), who presented with increased shortness of breath and cough. The patient was treated for an acute COPD exacerbation, but was noted to have mucus versus other obstructing lesion in her left lower lobe. She was started on percussion vest and Acapella device for pulmonary toilet without significant improvement in the mucus plugging. The patient was therefore consented for a bronchoscopy on 04/09/2019 which did show a mucus plug in the left lower lobe basilar segmental bronchi. She did have successful suctioning of the mucus plug however, she did have intraoperative desaturation and BAL and more complete examination was not able to be performed. Postprocedure the patient reports there is some improvement in her breathing; however, continues to note a sensation of mucus and difficulty expectorating her mucus. - Would continue the patient on Mucinex. Will add Mucomyst for further attempts at pulmonary toilet and mucus clearance to be given with nebulizer treatments. - Will continue with Acapella device after her nebulizer treatments, but would hold off on further percussion vest for now. Will continue with home medication of Perforomist and continue the patient on prednisone with tapering. - The patient is on meropenem for broad spectrum antibiotics. She does have leukocytosis but has been afebrile. 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 Code status: DNR MTDD
[2019-04-10] MEDS ORDERED: ACETYLCYSTEINE 20% 4 ML VIAL (200MG/ML) INH SCH (16:00)
--- NOTE | 2019-04-10 17:47 | REP ---
MIDLINE INSERTION WITH ULTRASOUND GUIDANCE: REASON FOR EXAM: PROCEDURE: Midline catheter insertion under ultrasound guidance. This procedure was performed by JULIA Ruth, under the direct supervision of Dr. Ace. The risks and benefits of the procedure were explained to the patient and informed consent was obtained prior to the procedure both verbally and written. Directly prior to the start of the procedure, a formal timeout was completed in the procedure room. The right brachial vein was localized using ultrasound guidance. The skin was prepped and draped in a sterile fashion. 1% lidocaine was used as a local anesthetic. Using ultrasound guidance the right brachial vein was cannulated, upon cannulation of the vein rupture. Using ultrasound guidance the right brachial vein was again cannulated higher up, and a 0.018 guidewire was inserted. The needle was removed and a 4.5 [place] dilator and a Peel-Away sheath was inserted over the guidewire. Upon inserting the dilator and peel-away sheath in the vein once again ruptured. At that time it was decided to abort the procedure. The patient tolerated the procedure well and there were no immediate complications. Reviewed by JULIA Farfan 04/08/2019 08:37 A Electronically Signed by Alex Ace MD 04/10/2019 05:38 P
[2019-04-10 18:00] VITALS: BP 152/60
[2019-04-10] MEDS ORDERED: BUMETANIDE 1 MG TAB PO ONE (21:45)
[2019-04-10] MEDS: ATORVASTATIN 20 MG TAB PO SCH (21:50)
[2019-04-10] MEDS: AMIODARONE 200 MG TAB (PACERONE) PO SCH (21:50)
[2019-04-10] MEDS: ACETYLCYSTEINE 20% 4 ML VIAL (200MG/ML) INH SCH (21:51)
[2019-04-10] MEDS: LEVEMIR (INSULIN DETEMIR) 1 UNITS/0.01ML SC SCH (21:53)
[2019-04-10 22:00] VITALS: BP 172/62
[2019-04-11] MEDS: MEROPENEM INJ 500 MG in IV 1 EA IV SCH ×2 (00:52→12:32)
[2019-04-11] MEDS: SODIUM CHLORIDE HYPERTONIC 3% 15ML NEB SOL INH SCH ×6 (04:28→19:35)
[2019-04-11] MEDS: IPRATROPIUM 0.5MG/ALBUTEROL 2.5MG INH SOL UD 3ML (DUONEB)(J7620) NEB PRN ×2 (04:28→11:15)
[2019-04-11 06:00] VITALS: BP 158/58
[2019-04-11 06:20] LABS: HEMATOCRIT 31.5 % (36.0-47.0); HEMOGLOBIN 9.6 g/dl (12.0-15.5); MEAN CORPUSCULAR HEMOGLOBIN 26.3 pg (27.0-33.0); MEAN CORPUSCULAR HGB CONC 30.5 g/dl (32.0-36.5); MEAN CORPUSCULAR VOLUME 86.3 fl (80.0-96.0); PLATELET COUNT, AUTOMATED 251 10^3/uL (150-450); RED BLOOD COUNT 3.65 10^6/uL (4.00-5.40); WHITE BLOOD COUNT 14.5 10^3/uL (4.0-10.0)
[2019-04-11] MEDS: LEVOTHYROXINE 100MCG TABLET (0.1MG) PO SCH (06:30)
[2019-04-11 06:33] LABS: CREATININE FOR GFR 1.54 MG/DL (0.55-1.30); GLOMERULAR FILTRATION RATE 34.4 (>32); POTASSIUM SERUM 3.7 MEQ/L (3.5-5.1)
[2019-04-11] MEDS: FORMOTEROL FUMARATE 20 MCG/2 ML INHALATION SOLUTION (PERFOROMIST) INH SCH ×2 (07:50→19:35)
[2019-04-11] MEDS: IPRATROPIUM 0.5MG/ALBUTEROL 2.5MG INH SOL UD 3ML (DUONEB)(J7620) NEB SCH ×3 (07:52→14:57)
[2019-04-11] MEDS: ACETYLCYSTEINE 20% 4 ML VIAL (200MG/ML) INH SCH ×2 (07:52→20:07)
[2019-04-11] MEDS: HumaLOG INSULIN (NovoLOG) PER UNIT SC SCH ×4 (07:57→21:27)
[2019-04-11] MEDS: guaiFENesin ER 600 MG TAB PO SCH ×2 (09:04→20:19)
[2019-04-11] MEDS: predniSONE 20 MG TAB PO SCH (09:04)
[2019-04-11] MEDS: CALCITRIOL 0.25 MCG CAP (S0169) PO SCH (09:04)
[2019-04-11] MEDS: PANTOPRAZOLE 40MG TAB (PROTONIX) PO SCH (09:04)
[2019-04-11] MEDS: busPIRone 10 MG TAB PO SCH ×3 (09:04→20:19)
[2019-04-11] MEDS: BUMETANIDE 1 MG TAB PO SCH ×2 (09:04→17:37)
[2019-04-11] MEDS: ASPIRIN 81 MG ENTERIC TAB PO SCH (09:05)
[2019-04-11] MEDS: LOSARTAN 25 MG TAB PO SCH (09:05)
[2019-04-11] MEDS: APIXABAN 2.5 MG TAB (ELIQUIS) PO SCH ×2 (09:05→20:19)
[2019-04-11] MEDS: NYSTATIN 500,000 U/5 ML SUSP UDC SS SCH ×3 (09:05→20:19)
--- NOTE | 2019-04-11 11:35 | IPN ---
DATE: 04/10/2019 Miranda was seen on [facility] on 04/10, less short of breath and feeling better since the bronchoscopy and removal of mucous plugging. Says she feels the best she has in a while. PHYSICAL EXAMINATION: Vital signs stable. Lungs were much clearer than typical. Heart regular rhythm. Abdomen soft, nontender. No peripheral edema. LABORATORIES: White count was 17,000, hemoglobin 9.7. Electrolytes unremarkable, creatinine 1.39. IMPRESSION: Exacerbation of chronic obstructive pulmonary disease (COPD) secondary to obstruction from mucous plugging. Improved with efforts of head tennis professional. PLAN: Continue meropenem, Acapella device and wait for results of the procalcitonin.
--- NOTE | 2019-04-11 11:41 | IPN ---
DATE: 04/11/2019 Miranda was seen on 04/11 on [facility]. She is a little more short of breath, a little tighter in her chest. She had a good day yesterday. She is a little discouraged that she seems to be a little worse today. No fever or chills. Also feels a little weaker than yesterday. PHYSICAL EXAMINATION: Vital signs per flow sheet. Oxygen saturation is 100% on 4 liters. She is resting comfortably. HEENT unremarkable. No jugular venous distention (JVD). Lungs have a few wheezes, new from yesterday. Heart regular rhythm. Abdomen soft, nontender. No peripheral edema. LABS: Sodium 138, potassium 3.7, BUN 52, creatinine 1.54, glucose 120, white count 14.5, hemoglobin 9.6, platelets 215. IMPRESSION: 1. Chronic obstructive pulmonary disease (COPD) exacerbation secondary to presumed infection. She is on meropenem which we will continue. She is on aggressive mucolytic therapy and bronchodilator therapy. Appreciate the efforts of pulmonary. Procalcitonin has been ordered and is pending. 2. Atrial fibrillation. Rate is controlled. Continue the anticoagulation with Eliquis. 3. Diabetes on Levemir and sliding scale insulin. Blood sugar are acceptable. 4. Diastolic congestive heart failure (CHF). Seems compensated on exam.
[2019-04-11 14:00] VITALS: BP 158/58
[2019-04-11] MEDS: AMIODARONE 200 MG TAB (PACERONE) PO SCH (20:19)
[2019-04-11] MEDS: ATORVASTATIN 20 MG TAB PO SCH (20:19)
--- NOTE | 2019-04-11 20:25 | IPN ---
DATE: 04/11/2019 The patient was seen and examined this morning during bedside rounds. The patient was started on Mucomyst with her nebulizer treatments yesterday, in addition to her Acapella. She does feel that she has been able to bring up some mucus with the treatments now. She feels her cough may have improved slightly. She reports her breathing is otherwise unchanged. She does still have some dyspnea with exertion. Denies any chest pain. Has not had any fevers or chills. PHYSICAL EXAMINATION Temperature 98.6, pulse 64, respirations 20, blood pressure 150/58, oxygen saturation 100% on 4 liters nasal cannula. Input approximately 800 mL, out 1.9 liters. General: The patient is awake and alert, is sitting in the bed in no acute respiratory distress. Is able to speak in short sentences. Is not using accessory muscles for respiration. HEENT: Normocephalic, atraumatic. Moist mucous membranes. Neck is supple. Trachea is midline. No palpable adenopathy. Cardiovascular: Irregularly irregular. Normal S1, S2 with a faint systolic murmur auscultated. Pulmonary: Diminished breath sounds bilaterally with crackles at the bases of the lung but improvement in the rhonchi and wheezing. Abdomen: Soft, nontender, nondistended. Extremities: There is trace lower extremity edema noted bilaterally. Labs: Sodium 138, potassium 3.7, BUN 52, creatinine 1.54, glucose 120 white count 14.5, hemoglobin 9.6, platelets 215 ASSESSMENT AND PLAN: Ms. Calderon is an 83-year-old female with past medical history of diabetes, hypertension, atrial fibrillation, congestive heart failure (CHF), chronic obstructive pulmonary disease (COPD) on chronic nasal cannula oxygen supplementation who presented with increased shortness breath and cough. The patient was treated for an acute COPD exacerbation but continued to have mucus versus other obstructing lesion noted on CT in her left lower lobe. She was started with pulmonary toilet with percussion vest, Acapella and nebulizer treatments without significant improvement. The patient therefore had a bronchoscopy performed on 04/09/2019, which did show a mucus plug in the left lower lobe basilar segmental bronchi, which was able to be suctioned. She did have some desaturation noted during the bronchoscopy and so BAL and more complete examination was not able to be performed. Postprocedure, the patient is on her usual 4 liters nasal cannula oxygen and has been saturating well. She was started on Mucomyst to be added with her nebulizer treatments and has noted some improvement in her mucus clearance. Continue with Mucinex. Continue with pulmonary toilet with her Mucomyst with her nebulizer treatments with Acapella for pulmonary toilet. Continue home medications of Perforomist. Continue prednisone and would continue to taper as tolerated. The patient has been on meropenem for broad spectrum antibiotics. She does have leukocytosis, although improving. She has been afebrile. The patient does not have a sputum culture from her initial admission. We will follow up the procalcitonin to bundle helper in de-escalation and discontinuation of her IV antibiotics. Would have the patient ambulate with physical therapy (PT). Continue with home medications of diuretics and rate control medications as per primary team. The patient is also on Eliquis for anticoagulation. The patient can followup with Dr. Bermeo as an outpatient upon discharge in 1-2 weeks. Code status: DO NOT RESUSCITATE. MTDD
[2019-04-11] MEDS: LEVEMIR (INSULIN DETEMIR) 1 UNITS/0.01ML SC SCH (21:27)
[2019-04-11 22:00] VITALS: BP 166/60
[2019-04-12] MEDS: MEROPENEM INJ 500 MG in IV 1 EA IV SCH (01:08)
[2019-04-12] MEDS: SODIUM CHLORIDE HYPERTONIC 3% 15ML NEB SOL INH SCH ×6 (01:30→23:40)
[2019-04-12] MEDS: IPRATROPIUM 0.5MG/ALBUTEROL 2.5MG INH SOL UD 3ML (DUONEB)(J7620) NEB SCH ×4 (01:31→23:27)
[2019-04-12 06:00] VITALS: BP 140/65
[2019-04-12] MEDS: LEVOTHYROXINE 100MCG TABLET (0.1MG) PO SCH (06:08)
[2019-04-12 06:15] LABS: HEMATOCRIT 28.8 % (36.0-47.0); HEMOGLOBIN 8.8 g/dl (12.0-15.5); MEAN CORPUSCULAR HEMOGLOBIN 26.6 pg (27.0-33.0); MEAN CORPUSCULAR HGB CONC 30.6 g/dl (32.0-36.5); PLATELET COUNT, AUTOMATED 236 10^3/uL (150-450); RED BLOOD COUNT 3.31 10^6/uL (4.00-5.40); WHITE BLOOD COUNT 17.6 10^3/uL (4.0-10.0)
[2019-04-12 06:40] LABS: CALCIUM LEVEL 7.7 MG/DL (8.8-10.2); CREATININE FOR GFR 1.51 MG/DL (0.55-1.30); GLOMERULAR FILTRATION RATE 35.2 (>32); POTASSIUM SERUM 3.7 MEQ/L (3.5-5.1)
[2019-04-12] MEDS: FORMOTEROL FUMARATE 20 MCG/2 ML INHALATION SOLUTION (PERFOROMIST) INH SCH ×2 (07:56→19:23)
[2019-04-12] MEDS: ACETYLCYSTEINE 20% 4 ML VIAL (200MG/ML) INH SCH ×3 (07:57→19:24)
[2019-04-12] MEDS: NYSTATIN 500,000 U/5 ML SUSP UDC SS SCH ×3 (08:28→21:00)
[2019-04-12] MEDS: HumaLOG INSULIN (NovoLOG) PER UNIT SC SCH ×4 (08:28→21:01)
[2019-04-12] MEDS: predniSONE 20 MG TAB PO SCH (08:33)
[2019-04-12] MEDS: ASPIRIN 81 MG ENTERIC TAB PO SCH (08:34)
[2019-04-12] MEDS: PANTOPRAZOLE 40MG TAB (PROTONIX) PO SCH (08:34)
[2019-04-12] MEDS: DOXYCYCLINE HYCLATE 100 MG TAB PO SCH ×2 (08:34→21:00)
[2019-04-12] MEDS: CALCITRIOL 0.25 MCG CAP (S0169) PO SCH (08:34)
[2019-04-12] MEDS: guaiFENesin ER 600 MG TAB PO SCH ×2 (08:34→21:01)
[2019-04-12] MEDS: APIXABAN 2.5 MG TAB (ELIQUIS) PO SCH ×2 (08:34→21:01)
[2019-04-12] MEDS: busPIRone 10 MG TAB PO SCH ×3 (08:34→21:00)
[2019-04-12] MEDS: LOSARTAN 25 MG TAB PO SCH (08:34)
[2019-04-12] MEDS: BUMETANIDE 1 MG TAB PO SCH ×2 (08:35→16:59)
--- NOTE | 2019-04-12 09:36 | IPNPDOC ---
Subjective Date Seen The patient was seen on 04/12/19. Subjective Chief Complaint/HPI SOB Events since last encounter Improved symptoms with addition of mucomyst tx. Planning on getting OOB and working on mobility today. Constitutional: Denies: Chills, Fever, Night Sweats Pulmonary: Reports: Dyspnea, Cough Cardiovascular: Denies: Chest Pain, Palpitations, Orthopnea, Paroxysmal Noc. Dyspnea, Lt Headedness Gastrointestinal: Denies: Nausea, Vomiting, Abdominal Pain, Diarrhea, Constipation Genitourinary: Denies: Dysuria, Frequency, Incontinence, Retention Objective Physical Examination General Exam: Positive: Alert Eye Exam: Positive: PERRLA ENT Exam: Positive: Atraumatic, Other ENT Neck Exam: Positive: JVD Chest Exam: Positive: Diminished (no rales ); Negative: Rales, Rhonchi, Wheezing Heart Exam: Positive: Regular Rhythm, Murmurs (at base. ) Abdomen Exam: Positive: Normal bowel sounds, Soft; Negative: Tenderness Extremity Exam: Positive: Edema (2+) Skin Exam: Positive: Nl turgor and temperature Psych Exam: Positive: Mental status NL Assessment /Plan Problems (1) Acute and chronic respiratory failure with hypoxia Problem Text: 04/09: dyspneic. s/p bronchoscopy lot of mucus removed from airway and firm plug was successfully removed, per Dr. Nielsen. Hopefully clinical improvement will follow. White count is up today. Culture was not technically feasible due to patient's rapid desaturation during the procedure. Continue to follow. If WBC climbs consider adding Vanc. If not improving then consider palliative approach. May be candidate for placement Acute Rehab. 04/08: no re-expansion, pulmonary planning bronch tomorrow. 04/06 - Pulmonary has seen patient in consultation. Getting Acapella for mucous plugging/bronchiectasis but patient reports this hurts her chest. Still with Dyspnea - defer to pulm ?need for bronch cont Meropenem \ 04/05: reviewed CT with Dr. Nielsen who agrees there is left lower lobe volume loss with obstruction visible. Consult requested. She has required bronch in the past to clear. White count remains elevated. Not currently on antibiotic. Will start meropenem. Relatively low cross reaction risk in pcn allergy patient. chronic 3L NC 04/03 + guai and Acapella to attempt to improve LLL aeration 04/02 BCX2 NG 04/02 RESP PCR - 04/02/19 CT chest: . No evidence of left pleural effusion. 2. Left lower lobe atelectasis/collapse, with central airway filling suggesting possible aspiration 3. Pulmonary hypertension (2) Diastolic CHF, chronic Permanent Comment: ECHO 08/2018: CONCLUSIONS: 1. Severe focal thickening and focal calcific deposits of a 3-cusp aortic valve with severe reduction in aortic cusp mobility. Aortic valve stenosis considered to be severe on the basis of aortic valve area calculation (0.74 cm) and dimensionless index (0.23). Aortic valve stenosis considered to be moderate on the basis of peak aortic valve velocity (3.4 cm/sec) and mean aortic valve gradient (30 mmHg). 2. Mild concentric left ventricle hypertrophy. No regional LV wall motion abnormalities. Normal regional LV wall motion and wall thickening. Left ventricular ejection fraction of 65% by visual estimate. Normal LV systolic function. Grade II LV diastolic dysfunction (normal filling pattern). 3. Moderate left atrial dilatation. 4. Severe mitral annular calcification. Very mild mitral regurgitation. No mitral stenosis. 5. Suggestive of moderate elevation of estimated right ventricle systolic pressure (47 mmHg). Mild tricuspid regurgitation. Normal right ventricle size and systolic function. Inferior vena cava dilatation suggestive of elevated central venous pressure of at least 20 mmHg. ADDITIONAL COMMENTS AND RECOMMENDATIONS: Consider aortic valve replacement if the patient is a suitable candidate. DD: Hai Orellana MD, [facility] 08/20/18 1436 Last Edited By: Toni Lewis MD on Mar 21, 2019 18:47 Status: Acute Response to Treatment: Stable Problem Text: 04/12/19: will diurese today due to 2+ pitting edema 04/08: stable, no rales 04/06 - Appears Euvolemic on Bumex 4 mg am/2 mg pm -2l since 04/02 admission 04/04 to 54/2.1, 3.3/2.4 c BNP to 2993; therefore, fur 80 IV q8H to HD bum /2 and held los 25 04/02 BNP 4023 (03/11 2168) (3) Aortic stenosis, severe Status: Chronic Response to Treatment: Stable Problem Text: [facility] and Dr. Herring felt too high risk for TAVR (4) COPD (chronic obstructive pulmonary disease) Status: Chronic Problem Text: 04/12/19: wean prednisone. 04/09 will reduce steroid to 20mg daily now that she is post-bronch presumed contributor to LLL volume loss. SoluMedrol 40 q8 Nebs alb/Ipra (5) JASPAL (obstructive sleep apnea) Status: Chronic (6) Atrial fibrillation Status: Chronic Problem Text: RC dilt CD 180. Also on Amiodarone. ECG: Sinus maday on admission. HR running 50s and 60s per VS stroke prophylaxis on Eliquis at 2.5, bid. (7) Diabetes mellitus Status: Chronic Problem Text: 04/09: will expect improvement in control with steroid dose reduction 04/08 control worse secondary to steroid use. 04/06 - Blood sugars in 400s secondary to steroids - Increase Glar 04/04 increased to 25 BG 300s on det 15 (8) Hypothyroidism Status: Chronic Problem Text: on HD LT4 100 (9) Anemia Status: Acute Problem Text: at baseline hgb 9s (10) CKD (chronic kidney disease) stage 3, GFR 30-59 ml/min Status: Chronic Response to Treatment: Improving Problem Text: baseline cr 1.5-1.7 Plan/VTE VTE Prophylaxis Ordered?: Yes Plan Therapy: PT VS, I&O, 24H, Fishbone Vital Signs/I&O Vital Signs Date Time Temp Pulse Resp B/P (MAP) Pulse Ox O2 Delivery O2 Flow Rate FiO2 04/12/19 08:33 60 162/64 04/12/19 06:00 97.4 16 93 Nasal Cannula 4.0 I&O- Last 24 Hours up to 6 AM 04/12/19 06:00 Intake Total 1425 ml Output Total 1850 ml Balance -425 ml Laboratory Data 24H LABS Laboratory Tests 2 04/11/19 11:42: Bedside Glucose (Misc Panel) 328H 04/11/19 16:50: Bedside Glucose (Misc Panel) 338H 04/11/19 20:30: Bedside Glucose (Misc Panel) 359H 04/12/19 05:30: Nucleated Red Blood Cells % (auto) 0.0, Anion Gap 6L, Glomerular Filtration Rate 35.2, Calcium Level 7.7L CBC/BMP Laboratory Tests 04/12/19 05:30 Microbiology Microbiology 04/03/19 Respiratory Virus Panel (PCR) (CATHY) - Final, Complete 04/02/19 Blood Culture - Final, Complete NO GROWTH AFTER 5 DAYS 04/02/19 Blood Culture - Final, Complete NO GROWTH AFTER 5 DAYS Karla Garcia [facility] Apr 12, 2019 09:36
[2019-04-12] MEDS ORDERED: FUROSEMIDE 40 MG/4 ML VIAL (J1940) IV ONE (09:45)
[2019-04-12 14:00] VITALS: BP 140/60
--- NOTE | 2019-04-12 14:48 | IPN ---
DATE: 04/12/2019 The patient was seen, examined this morning during bedside rounds. The patient reports that she has been able to bring up some more mucus with the Mucomyst and her nebulizer treatments along with the Acapella. She does note some chest tightness this morning but denies any significant wheezing that she has noted or chest pain. She does have some dyspnea on exertion as well, although she was able to ambulate yesterday with a walker. The patient denies any fevers or chills. Has not had noticed any increased lower extremity edema. PHYSICAL EXAMINATION: Temperature 97.4, pulse 63, respirations 16, blood pressure 140/65, oxygen saturation 93% on 4 liters nasal cannula. General: The patient is awake and alert, is sitting in bed in no acute respiratory distress. Does not appear to be using any accessory muscles for respiration currently. HEENT: Normocephalic, atraumatic. Moist mucous membranes. Neck is supple and trachea is midline. No palpable cervical adenopathy. Cardiovascular: Irregularly irregular. Normal S1, S2 with a faint systolic murmur auscultated. Pulmonary: Diminished breath sounds bilaterally with crackles at the bases but no significant wheezing or rhonchi. Abdomen: Soft, nontender, nondistended. Extremities: There is trace lower extremity edema noted bilaterally. LABORATORY DATA: WBC 17.6, hemoglobin 8.8, platelets 236. Chemistry: Sodium is 137, potassium 3.7, chloride is 91, bicarbonate 40, BUN 50, creatinine is 1.51, glucose is 171, calcium 7.7 procalcitonin is 0.50. ASSESSMENT AND PLAN: Ms. Calderon is an 83-year-old female with past medical history of diabetes, hypertension, atrial fibrillation, congestive heart failure (CHF), chronic obstructive pulmonary disease (COPD) on chronic nasal cannula oxygen supplementation who presented with increased shortness breath and cough. The patient was treated for an acute COPD exacerbation but continued to have mucus versus other obstructing lesion noted on her CT in her left lower lobe. She was started on pulmonary toilet with percussion vest, Acapella and nebulizer treatments without significant improvement. The patient therefore had a bronchoscopy performed on 04/09/2019, which did show a mucus plug in the left lower lobe basilar segmental bronchi, which was able to the suctioned. She did have desaturation during the procedure and so BAL and more complete examination was not able to be performed. Postprocedure, the patient has been weaned down to her usual 4 liters nasal cannula oxygen and has been tolerating that well. - The patient was started on Mucomyst with nebulizer treatments and Acapella and has noted some improvement in her cough and ability to bring up mucus. - Continue with the pulmonary toilet as an outpatient with Mucomyst added to her nebulizer treatments and Acapella device. - Continue with the Mucinex - Continue with home medications of Perforomist. - Continue prednisone with a slow taper. She the patient is not on chronic steroids as an outpatient. - The patient was on meropenem initially for broad spectrum antibiotics. She continues to have some leukocytosis although she has been afebrile. She did not have a sputum culture performed on her admission. Her repair procalcitonin was checked, which came back as 0.50. Therefore would de-escalate her from meropenem to azithromycin and continue for 3 days to complete a 10-day course total antibiotics. - Continue with physical therapy (PT) and ambulation. - Continue with home medications and diuretics and rate control medications as per primary team. - Deep vein thrombosis (DVT) prophylaxis. The patient is on Eliquis. Code status: DO NOT RESUSCITATE. The patient can followup with Dr. Bermeo as an outpatient upon discharge in 1-2 weeks. Please do not hesitate to call if any further questions or concerns.
[2019-04-12] MEDS: IPRATROPIUM 0.5MG/ALBUTEROL 2.5MG INH SOL UD 3ML (DUONEB)(J7620) NEB PRN (16:08)
[2019-04-12] MEDS: ATORVASTATIN 20 MG TAB PO SCH (21:00)
[2019-04-12] MEDS: AMIODARONE 200 MG TAB (PACERONE) PO SCH (21:01)
[2019-04-12] MEDS: LEVEMIR (INSULIN DETEMIR) 1 UNITS/0.01ML SC SCH (21:02)
[2019-04-12 22:00] VITALS: BP 158/70
[2019-04-13] MEDS: IPRATROPIUM 0.5MG/ALBUTEROL 2.5MG INH SOL UD 3ML (DUONEB)(J7620) NEB PRN ×2 (02:13→11:13)
[2019-04-13] MEDS: SODIUM CHLORIDE HYPERTONIC 3% 15ML NEB SOL INH SCH ×7 (02:13→23:23)
[2019-04-13] MEDS: ACETAMINOPHEN TAB 650MG DOSE (2X325MG) PO PRN (03:41)
[2019-04-13] MEDS: LEVOTHYROXINE 100MCG TABLET (0.1MG) PO SCH (05:23)
[2019-04-13 06:00] VITALS: BP 148/61
[2019-04-13 06:11] LABS: HEMATOCRIT 28.7 % (36.0-47.0); HEMOGLOBIN 8.8 g/dl (12.0-15.5); MEAN CORPUSCULAR HEMOGLOBIN 27.2 pg (27.0-33.0); MEAN CORPUSCULAR HGB CONC 30.7 g/dl (32.0-36.5); MEAN CORPUSCULAR VOLUME 88.6 fl (80.0-96.0); PLATELET COUNT, AUTOMATED 227 10^3/uL (150-450); RED BLOOD COUNT 3.24 10^6/uL (4.00-5.40); WHITE BLOOD COUNT 16.6 10^3/uL (4.0-10.0)
[2019-04-13 06:36] LABS: CALCIUM LEVEL 8.3 MG/DL (8.8-10.2); CREATININE FOR GFR 1.31 MG/DL (0.55-1.30); GLOMERULAR FILTRATION RATE 41.5 (>32); POTASSIUM SERUM 3.6 MEQ/L (3.5-5.1)
[2019-04-13] MEDS: HumaLOG INSULIN (NovoLOG) PER UNIT SC SCH ×4 (07:30→21:04)
[2019-04-13] MEDS: FORMOTEROL FUMARATE 20 MCG/2 ML INHALATION SOLUTION (PERFOROMIST) INH SCH ×2 (08:05→20:36)
[2019-04-13] MEDS: ACETYLCYSTEINE 20% 4 ML VIAL (200MG/ML) INH SCH ×2 (08:07→20:36)
[2019-04-13] MEDS: IPRATROPIUM 0.5MG/ALBUTEROL 2.5MG INH SOL UD 3ML (DUONEB)(J7620) NEB SCH ×3 (08:07→23:23)
[2019-04-13] MEDS: NYSTATIN 500,000 U/5 ML SUSP UDC SS SCH ×3 (09:00→20:11)
[2019-04-13] MEDS: ASPIRIN 81 MG ENTERIC TAB PO SCH (09:02)
[2019-04-13] MEDS: DOXYCYCLINE HYCLATE 100 MG TAB PO SCH ×2 (09:03→20:12)
[2019-04-13] MEDS: CALCITRIOL 0.25 MCG CAP (S0169) PO SCH (09:03)
[2019-04-13] MEDS: predniSONE 10 MG TAB PO SCH (09:03)
[2019-04-13] MEDS: APIXABAN 2.5 MG TAB (ELIQUIS) PO SCH ×2 (09:03→20:12)
[2019-04-13] MEDS: LOSARTAN 25 MG TAB PO SCH (09:03)
[2019-04-13] MEDS: PANTOPRAZOLE 40MG TAB (PROTONIX) PO SCH (09:03)
[2019-04-13] MEDS: guaiFENesin ER 600 MG TAB PO SCH ×2 (09:03→20:11)
[2019-04-13] MEDS: busPIRone 10 MG TAB PO SCH ×3 (09:03→20:12)
[2019-04-13] MEDS: BUMETANIDE 1 MG TAB PO SCH ×2 (09:12→16:47)
--- NOTE | 2019-04-13 10:22 | IPNPDOC ---
Subjective Date Seen The patient was seen on 04/13/19. Subjective Chief Complaint/HPI SOB Events since last encounter has cleared PT to return home. Breathing is slowly returning to baseline. Continues with BLE edema. Received Furosemide 40 mg IV x 1 yesterday Pulmonary: Reports: Dyspnea, Cough Cardiovascular: Reports: Edema; Denies: Chest Pain, Palpitations, Orthopnea, Paroxysmal Noc. Dyspnea, Lt Headedness Gastrointestinal: Denies: Nausea, Vomiting, Abdominal Pain, Diarrhea, Constipation Genitourinary: Denies: Dysuria, Frequency, Incontinence, Retention Neurological: Denies: Weakness, Numbness, Incoordination, Change in speech, Confusion, Seizures, Other Symptoms Psych: Reports: Mood Normal; Denies: Depression, Memory Issues Objective Physical Examination General Exam: Positive: Alert Eye Exam: Positive: PERRLA ENT Exam: Positive: Atraumatic, Other ENT Neck Exam: Positive: JVD Chest Exam: Positive: Diminished (no rales ); Negative: Rales, Rhonchi, Wheezing Heart Exam: Positive: Regular Rhythm, Murmurs (at base. ) Abdomen Exam: Positive: Normal bowel sounds, Soft; Negative: Tenderness Extremity Exam: Positive: Edema (2+) Skin Exam: Positive: Nl turgor and temperature Psych Exam: Positive: Mental status NL Assessment /Plan Problems (1) Acute and chronic respiratory failure with hypoxia Problem Text: malclearance of secretion-continue muco BID, guai BID 04/09: dyspneic. s/p bronchoscopy lot of mucus removed from airway and firm plug was successfully removed, per Dr. Nielsen, could not do complete BAL 2 desat 04/08: no re-expansion, pulmonary planning bronch tomorrow. 04/06 - Pulmonary has seen patient in consultation. Getting Acapella for mucous plugging/bronchiectasis but patient reports this hurts her chest. chronic 3L NC 04/03 + guai and Acapella to attempt to improve LLL aeration 04/02 BCX2 NG 04/02 RESP PCR - 04/02/19 CT chest: . No evidence of left pleural effusion. 2. Left lower lobe atelectasis/collapse, with central airway filling suggesting possible aspiration 3. Pulmonary hypertension (2) Diastolic CHF, chronic Permanent Comment: ECHO 08/2018: CONCLUSIONS: 1. Severe focal thickening and focal calcific deposits of a 3-cusp aortic valve with severe reduction in aortic cusp mobility. Aortic valve stenosis considered to be severe on the basis of aortic valve area calculation (0.74 cm) and dimensionless index (0.23). Aortic valve stenosis considered to be moderate on the basis of peak aortic valve velocity (3.4 cm/sec) and mean aortic valve gradient (30 mmHg). 2. Mild concentric left ventricle hypertrophy. No regional LV wall motion a bnormalities. Normal regional LV wall motion and wall thickening. Left ventricular ejection fraction of 65% by visual estimate. Normal LV systolic function. Grade II LV diastolic dysfunction (normal filling pattern). 3. Moderate left atrial dilatation. 4. Severe mitral annular calcification. Very mild mitral regurgitation. No mitral stenosis. 5. Suggestive of moderate elevation of estimated right ventricle systolic pressure (47 mmHg). Mild tricuspid regurgitation. Normal right ventricle size and systolic function. Inferior vena cava dilatation suggestive of elevated central venous pressure of at least 20 mmHg. ADDITIONAL COMMENTS AND RECOMMENDATIONS: Consider aortic valve replacement if the patient is a suitable candidate. DD: Hai Orellana MD, [facility] 08/20/18 1543 Last Edited By: Toni Lewis MD on Mar 21, 2019 18:47 Status: Acute Response to Treatment: Stable Problem Text: -6.8L since 04/08-caution c too aggressive preload reduction given severe 04/04 to 54/2.1, 3.3/2.4 c BNP to 2993; therefore, fur 80 IV q8H to HD bum 09/15 and held los 04/02 BNP 4023 (03/11 2168) (3) Aortic stenosis, severe Status: Chronic Response to Treatment: Stable Problem Text: [facility] and Dr. Herring felt too high risk for TAVR (4) COPD (chronic obstructive pulmonary disease) Status: Chronic Problem Text: 04/12/19: wean prednisone. 04/09 will reduce steroid to 20mg daily now that she is post-bronch presumed contributor to LLL volume loss. SoluMedrol 40 q8 Nebs alb/Ipra (5) JASPAL (obstructive sleep apnea) Status: Chronic (6) Atrial fibrillation Status: Chronic Problem Text: RC dilt CD 180. Also on Amiodarone. ECG: Sinus maday on admission. HR running 50s and 60s per VS stroke prophylaxis on Eliquis at 2.5, bid. (7) Diabetes mellitus Status: Chronic Problem Text: 04/09: will expect improvement in control with steroid dose reduction 04/08 control worse secondary to steroid use. 04/06 - Blood sugars in 400s secondary to steroids - Increase Glar 04/04 increased to 25 BG 300s on det 15 (8) Hypothyroidism Status: Chronic Problem Text: on HD LT4 100 (9) Anemia Status: Acute Problem Text: at baseline hgb 9s (10) CKD (chronic kidney disease) stage 3, GFR 30-59 ml/min Status: Chronic Response to Treatment: Improving Problem Text: baseline cr 1.5-1.7 Plan/VTE VTE Prophylaxis Ordered?: Yes Plan Therapy: PT VS, I&O, 24H, Fishbone Vital Signs/I&O Vital Signs Date Time Temp Pulse Resp B/P (MAP) Pulse Ox O2 Delivery O2 Flow Rate FiO2 04/13/19 09:03 62 164/50 04/13/19 06:00 97.0 20 100 Nasal Cannula 4.0 I&O- Last 24 Hours up to 6 AM 04/13/19 05:59 Intake Total 1140 ml Output Total 2000 ml Balance -860 ml Laboratory Data 24H LABS Laboratory Tests 2 04/12/19 11:37: Bedside Glucose (Misc Panel) 103 04/12/19 16:25: Bedside Glucose (Misc Panel) 292H 04/12/19 20:37: Bedside Glucose (Misc Panel) 320H 04/13/19 05:46: Nucleated Red Blood Cells % (auto) 0.0, Anion Gap 5L, Glomerular Filtration Rate 41.5, Calcium Level 8.3L CBC/BMP Laboratory Tests 04/13/19 05:46 Microbiology Microbiology 04/03/19 Respiratory Virus Panel (PCR) ([facility]ATHY) - Final, Complete Karla Garcia Apr 13, 2019 10:21 Leroy Rueda M.D. Apr 13, 2019 17:13
[2019-04-13] MEDS: FUROSEMIDE 40 MG/4 ML VIAL (J1940) IV SCH ×2 (11:49→18:48)
[2019-04-13 14:00] VITALS: BP 150/38
[2019-04-13] MEDS: AMIODARONE 200 MG TAB (PACERONE) PO SCH (20:12)
[2019-04-13] MEDS: ATORVASTATIN 20 MG TAB PO SCH (20:12)
[2019-04-13] MEDS: LEVEMIR (INSULIN DETEMIR) 1 UNITS/0.01ML SC SCH (21:04)
[2019-04-13 22:00] VITALS: BP 152/68
[2019-04-14] MEDS: FUROSEMIDE 40 MG/4 ML VIAL (J1940) IV SCH ×3 (02:05→20:26)
[2019-04-14] MEDS: SODIUM CHLORIDE HYPERTONIC 3% 15ML NEB SOL INH SCH ×5 (03:46→20:00)
[2019-04-14] MEDS: IPRATROPIUM 0.5MG/ALBUTEROL 2.5MG INH SOL UD 3ML (DUONEB)(J7620) NEB PRN ×2 (03:46→11:36)
[2019-04-14] MEDS: LEVOTHYROXINE 100MCG TABLET (0.1MG) PO SCH (05:25)
[2019-04-14 06:00] VITALS: BP 144/58
[2019-04-14 06:10] LABS: HEMATOCRIT 27.5 % (36.0-47.0); HEMOGLOBIN 8.4 g/dl (12.0-15.5); MEAN CORPUSCULAR HEMOGLOBIN 27.2 pg (27.0-33.0); MEAN CORPUSCULAR HGB CONC 30.5 g/dl (32.0-36.5); PLATELET COUNT, AUTOMATED 195 10^3/uL (150-450); RED BLOOD COUNT 3.09 10^6/uL (4.00-5.40); WHITE BLOOD COUNT 15.8 10^3/uL (4.0-10.0)
[2019-04-14 06:33] LABS: CALCIUM LEVEL 8.4 MG/DL (8.8-10.2); CREATININE FOR GFR 1.29 MG/DL (0.55-1.30); GLOMERULAR FILTRATION RATE 42.2 (>32); MAGNESIUM LEVEL 2.2 MG/DL (1.8-2.4); POTASSIUM SERUM 3.5 MEQ/L (3.5-5.1)
[2019-04-14] MEDS: FORMOTEROL FUMARATE 20 MCG/2 ML INHALATION SOLUTION (PERFOROMIST) INH SCH ×2 (07:19→20:20)
[2019-04-14] MEDS: IPRATROPIUM 0.5MG/ALBUTEROL 2.5MG INH SOL UD 3ML (DUONEB)(J7620) NEB SCH ×2 (07:19→15:20)
[2019-04-14] MEDS: HumaLOG INSULIN (NovoLOG) PER UNIT SC SCH ×4 (07:30→20:48)
--- NOTE | 2019-04-14 07:52 | IPNPDOC ---
Subjective Date Seen The patient was seen on 04/14/19. Subjective Chief Complaint/HPI SOB Events since last encounter Diuresed well with Furosemide 40 mg. -950. Patient anxious to return home. Feels she is near baseline. Constitutional: Denies: Chills, Fever, Night Sweats Skin: Denies: Rash, Lesions, Breakdown Pulmonary: Reports: Dyspnea (baseline), Cough (baseline) Cardiovascular: Reports: Orthopnea (at abseline); Denies: Chest Pain, Palpitations, Lt Headedness Gastrointestinal: Denies: Nausea, Vomiting, Abdominal Pain, Diarrhea, Constipation Objective Physical Examination General Exam: Positive: Alert Eye Exam: Positive: PERRLA ENT Exam: Positive: Atraumatic, Other ENT Neck Exam: Positive: JVD Chest Exam: Positive: Diminished; Negative: Rales, Rhonchi, Wheezing Heart Exam: Positive: Regular Rhythm, Murmurs (at base. ) Abdomen Exam: Positive: Normal bowel sounds, Soft; Negative: Tenderness Extremity Exam: Positive: Edema (1+) Skin Exam: Positive: Nl turgor and temperature Psych Exam: Positive: Mental status NL Assessment /Plan Problems (1) Acute and chronic respiratory failure with hypoxia Problem Text: malclearance of secretion-continue muco BID, guai BID 04/09: dyspneic. s/p bronchoscopy lot of mucus removed from airway and firm plug was successfully removed, per Dr. Nielsen, could not do complete BAL 2 desat 04/08: no re-expansion, pulmonary planning bronch tomorrow. 04/06 - Pulmonary has seen patient in consultation. Getting Acapella for mucous plugging/bronchiectasis but patient reports this hurts her chest. chronic 3L NC 04/03 + guai and Acapella to attempt to improve LLL aeration 04/02 BCX2 NG 04/02 RESP PCR - 04/02/19 CT chest: . No evidence of left pleural effusion. 2. Left lower lobe atelectasis/collapse, with central airway filling suggesting possible aspiration 3. Pulmonary hypertension (2) Diastolic CHF, chronic Permanent Comment: ECHO 08/2018: CONCLUSIONS: 1. Severe focal thickening and focal calcific deposits of a 3-cusp aortic valve with severe reduction in aortic cusp mobility. Aortic valve stenosis considered to be severe on the basis of aortic valve area calculation (0.74 cm) and dimensionless index (0.23). Aortic valve stenosis considered to be moderate on the basis of peak aortic valve velocity (3.4 cm/sec) and mean aortic valve gradient (30 mmHg). 2. Mild concentric left ventricle hypertrophy. No regional LV wall motion abnormalities. Normal regional LV wall motion and wall thickening. Left ventricular ejection fraction of 65% by visual estimate. Normal LV systolic function. Grade II LV diastolic dysfunction (normal filling pattern). 3. Moderate left atrial dilatation. 4. Severe mitral annular calcification. Very mild mitral regurgitation. No mitral stenosis. 5. Suggestive of moderate elevation of estimated right ventricle systolic p ressure (47 mmHg). Mild tricuspid regurgitation. Normal right ventricle size and systolic function. Inferior vena cava dilatation suggestive of elevated central venous pressure of at least 20 mmHg. ADDITIONAL COMMENTS AND RECOMMENDATIONS: Consider aortic valve replacement if the patient is a suitable candidate. DD: Hai Orellana MD, [facility] 08/20/18 1436 Last Edited By: Toni Lewis MD on Mar 21, 2019 18:47 Status: Acute Response to Treatment: Stable Problem Text: 04/14/2019: -950 since yesterday. HOLD diuresis today and monitor. -6.8L since 04/08-caution c too aggressive preload reduction given severe 04/04 to 54/2.1, 3.3/2.4 c BNP to 2993; therefore, fur 80 IV q8H to HD bum 09/15 and held los 25 04/02 BNP 4023 (03/11 2168) (3) Aortic stenosis, severe Status: Chronic Response to Treatment: Stable Problem Text: [facility] and Dr. Herring felt too high risk for TAVR (4) COPD (chronic obstructive pulmonary disease) Status: Chronic Response to Treatment: Improving Problem Text: 04/12/19: wean prednisone. 04/09 will reduce steroid to 20mg daily now that she is post-bronch presumed contributor to LLL volume loss. SoluMedrol 40 q8 Nebs alb/Ipra (5) JASPAL (obstructive sleep apnea) Status: Chronic (6) Atrial fibrillation Status: Chronic Problem Text: RC dilt CD 180. Also on Amiodarone. ECG: Sinus maday on admission. HR running 50s and 60s per VS stroke prophylaxis on Eliquis at 2.5, bid. (7) Diabetes mellitus Status: Chronic Problem Text: 04/09: will expect improvement in control with steroid dose reduction 04/08 control worse secondary to steroid use. 04/06 - Blood sugars in 400s secondary to steroids - Increase Glar 04/04 increased to 25 BG 300s on det 15 (8) Hypothyroidism Status: Chronic Problem Text: on HD LT4 100 (9) Anemia Status: Acute Problem Text: at baseline hgb 9s (10) CKD (chronic kidney disease) stage 3, GFR 30-59 ml/min Status: Chronic Response to Treatment: Improving Problem Text: baseline cr 1.5-1.7 Plan/VTE VTE Prophylaxis Ordered?: Yes Plan Therapy: PT VS, I&O, 24H, Fishbone Vital Signs/I&O Vital Signs Date Time Temp Pulse Resp B/P (MAP) Pulse Ox O2 Delivery O2 Flow Rate FiO2 04/14/19 06:00 97.5 81 22 144/58 (86) 99 Nasal Cannula 4.0 I&O- Last 24 Hours up to 6 AM 04/14/19 06:00 Intake Total 1530 ml Output Total 3150 ml Balance -1620 ml Laboratory Data 24H LABS Laboratory Tests 2 04/13/19 11:36: Bedside Glucose (Misc Panel) 242H 04/13/19 17:13: Bedside Glucose (Misc Panel) 371H 04/13/19 20:33: Bedside Glucose (Misc Panel) 296H 04/14/19 05:47: Nucleated Red Blood Cells % (auto) 0.0, Anion Gap 3L, Glomerular Filtration Rate 42.2, Calcium Level 8.4L, Magnesium Level 2.2, BN-Kgc-[id number]-Type Natriuretic Peptide 3108H CBC/BMP Laboratory Tests 04/14/19 05:47 Karla Garcia IN HOME AIDE Apr 14, 2019 07:51
[2019-04-14] MEDS: NYSTATIN 500,000 U/5 ML SUSP UDC SS SCH ×3 (08:54→20:26)
[2019-04-14] MEDS: BUMETANIDE 1 MG TAB PO SCH ×2 (08:54→17:37)
[2019-04-14] MEDS: busPIRone 10 MG TAB PO SCH ×3 (08:55→20:31)
[2019-04-14] MEDS: ASPIRIN 81 MG ENTERIC TAB PO SCH (08:55)
[2019-04-14] MEDS: CALCITRIOL 0.25 MCG CAP (S0169) PO SCH (08:58)
[2019-04-14] MEDS: guaiFENesin ER 600 MG TAB PO SCH ×2 (08:58→20:27)
[2019-04-14] MEDS: DOXYCYCLINE HYCLATE 100 MG TAB PO SCH ×2 (08:58→20:27)
[2019-04-14] MEDS: predniSONE 10 MG TAB PO SCH (08:59)
[2019-04-14] MEDS: APIXABAN 2.5 MG TAB (ELIQUIS) PO SCH ×2 (08:59→20:31)
[2019-04-14] MEDS: PANTOPRAZOLE 40MG TAB (PROTONIX) PO SCH (08:59)
[2019-04-14] MEDS: LOSARTAN 25 MG TAB PO SCH (08:59)
[2019-04-14] MEDS: ACETYLCYSTEINE 20% 4 ML VIAL (200MG/ML) INH SCH ×2 (11:36→20:19)
[2019-04-14 14:00] VITALS: BP 150/69
[2019-04-14] MEDS: ATORVASTATIN 20 MG TAB PO SCH (20:47)
[2019-04-14] MEDS: LEVEMIR (INSULIN DETEMIR) 1 UNITS/0.01ML SC SCH (20:47)
[2019-04-14] MEDS: AMIODARONE 200 MG TAB (PACERONE) PO SCH (20:48)
[2019-04-14 22:00] VITALS: BP 154/60
[2019-04-15] MEDS: FUROSEMIDE 40 MG/4 ML VIAL (J1940) IV SCH (03:38)
[2019-04-15] MEDS: IPRATROPIUM 0.5MG/ALBUTEROL 2.5MG INH SOL UD 3ML (DUONEB)(J7620) NEB PRN (04:22)
[2019-04-15] MEDS: SODIUM CHLORIDE HYPERTONIC 3% 15ML NEB SOL INH SCH ×6 (04:22→18:25)
[2019-04-15 06:00] VITALS: BP 164/62
[2019-04-15] MEDS: LEVOTHYROXINE 100MCG TABLET (0.1MG) PO SCH (06:34)
[2019-04-15 06:55] LABS: HEMATOCRIT 28.2 % (36.0-47.0); HEMOGLOBIN 8.4 g/dl (12.0-15.5); MEAN CORPUSCULAR HEMOGLOBIN 26.7 pg (27.0-33.0); MEAN CORPUSCULAR HGB CONC 29.8 g/dl (32.0-36.5); MEAN CORPUSCULAR VOLUME 89.5 fl (80.0-96.0); PLATELET COUNT, AUTOMATED 208 10^3/uL (150-450); RED BLOOD COUNT 3.15 10^6/uL (4.00-5.40); WHITE BLOOD COUNT 14.4 10^3/uL (4.0-10.0)
[2019-04-15 07:16] LABS: CALCIUM LEVEL 8.4 MG/DL (8.8-10.2); CREATININE FOR GFR 1.35 MG/DL (0.55-1.30); GLOMERULAR FILTRATION RATE 40.1 (>32); POTASSIUM SERUM 3.7 MEQ/L (3.5-5.1)
[2019-04-15] MEDS: FORMOTEROL FUMARATE 20 MCG/2 ML INHALATION SOLUTION (PERFOROMIST) INH SCH ×2 (07:16→18:24)
[2019-04-15] MEDS: IPRATROPIUM 0.5MG/ALBUTEROL 2.5MG INH SOL UD 3ML (DUONEB)(J7620) NEB SCH ×3 (07:16→16:00)
[2019-04-15] MEDS: ACETYLCYSTEINE 20% 4 ML VIAL (200MG/ML) INH SCH ×2 (07:16→18:25)
[2019-04-15] MEDS: HumaLOG INSULIN (NovoLOG) PER UNIT SC SCH ×4 (07:30→20:28)
--- NOTE | 2019-04-15 08:42 | IPNPDOC ---
Subjective Date Seen The patient was seen on 04/15/19. Subjective Chief Complaint/HPI SOB Events since last encounter patient c/o sore throat, worse after nebs. Otherwise, feels close to baseline Constitutional: Denies: Chills, Fever, Night Sweats ENT: Reports: Sore Throat Skin: Denies: Rash, Lesions, Breakdown Pulmonary: Reports: Dyspnea (baseline) Cardiovascular: Denies: Chest Pain, Palpitations, Orthopnea, Paroxysmal Noc. Dyspnea, Lt Headedness Gastrointestinal: Denies: Nausea, Vomiting, Abdominal Pain, Diarrhea, Constipation Psych: Reports: Mood Normal; Denies: Depression, Memory Issues Objective Physical Examination General Exam: Positive: Alert Eye Exam: Positive: PERRLA ENT Exam: Positive: Atraumatic, Pharynx Normal (white macules to posterior orop harynx), Other ENT Neck Exam: Positive: JVD Chest Exam: Positive: Diminished Heart Exam: Positive: Regular Rhythm, Murmurs Abdomen Exam: Positive: Normal bowel sounds, Soft Extremity Exam: Positive: Edema Skin Exam: Positive: Nl turgor and temperature Psych Exam: Positive: Mental status NL Assessment /Plan Problems (1) Acute and chronic respiratory failure with hypoxia Problem Text: malclearance of secretion-continue muco BID, guai BID 04/09: dyspneic. s/p bronchoscopy lot of mucus removed from airway and firm plug was successfully removed, per Dr. Nielsen, could not do complete BAL 2 desat 04/08: no re-expansion, pulmonary planning bronch tomorrow. 04/06 - Pulmonary has seen patient in consultation. Getting Acapella for mucous plugging/bronchiectasis but patient reports this hurts her chest. chronic 3L NC 04/03 + guai and Acapella to attempt to improve LLL aeration 04/02 BCX2 NG 04/02 RESP PCR - 04/02/19 CT chest: . No evidence of left pleural effusion. 2. Left lower lobe atelectasis/collapse, with central airway filling suggesting possible aspiration 3. Pulmonary hypertension (2) Diastolic CHF, chronic Permanent Comment: ECHO 08/2018: CONCLUSIONS: 1. Severe focal thickening and focal calcific deposits of a 3-cusp aortic valve with severe reduction in aortic cusp mobility. Aortic valve stenosis considered to be severe on the basis of aortic valve area calculation (0.74 cm) and dime nsionless index (0.23). Aortic valve stenosis considered to be moderate on the basis of peak aortic valve velocity (3.4 cm/sec) and mean aortic valve gradient (30 mmHg). 2. Mild concentric left ventricle hypertrophy. No regional LV wall motion abnormalities. Normal regional LV wall motion and wall thickening. Left ventricular ejection fraction of 65% by visual estimate. Normal LV systolic function. Grade II LV diastolic dysfunction (normal filling pattern). 3. Moderate left atrial dilatation. 4. Severe mitral annular calcification. Very mild mitral regurgitation. No mitral stenosis. 5. Suggestive of moderate elevation of estimated right ventricle systolic pressure (47 mmHg). Mild tricuspid regurgitation. Normal right ventricle size and systolic function. Inferior vena cava dilatation suggestive of elevated central venous pressure of at least 20 mmHg. ADDITIONAL COMMENTS AND RECOMMENDATIONS: Consider aortic valve replacement if the patient is a suitable candidate. DD: Hai Orellana MD, [facility] 08/20/18 1436 Last Edited By: Toni Lewis MD on Mar 21, 2019 18:47 Status: Acute Response to Treatment: Stable Problem Text: 04/14/2019: -950 since yesterday. HOLD diuresis today and monitor. -6.8L since 04/08-caution c too aggressive preload reduction given severe 04/04 to 54/2.1, 3.3/2.4 c BNP to 2993; therefore, fur 80 IV q8H to HD bum 09/15 and held los 25 04/02 BNP 4023 (03/11 2168) (3) Thrush Status: Acute Problem Text: Advised on rinsing mouth post neb txs. Needs to take out dentures and clean them, Dentures need to come out with swish and swallow nystatin (4) Aortic stenosis, severe Status: Chronic Response to Treatment: Stable Problem Text: [facility] and Dr. Herring felt too high risk for TAVR (5) COPD (chronic obstructive pulmonary disease) Status: Chronic Response to Treatment: Improving Problem Text: 04/12/19: wean prednisone. 04/09 will reduce steroid to 20mg daily now that she is post-bronch presumed contributor to LLL volume loss. SoluMedrol 40 q8 Nebs alb/Ipra (6) JASPAL (obstructive sleep apnea) Status: Chronic (7) Atrial fibrillation Status: Chronic Problem Text: RC dilt CD 180. Also on Amiodarone. ECG: Sinus maday on admission. HR running 50s and 60s per VS stroke prophylaxis on Eliquis at 2.5, bid. (8) Diabetes mellitus Status: Chronic Problem Text: 04/09: will expect improvement in control with steroid dose reduction 04/08 control worse secondary to steroid use. 04/06 - Blood sugars in 400s secondary to steroids - Increase Glar 04/04 increased to 25 BG 300s on det 15 (9) Hypothyroidism Status: Chronic Problem Text: on HD LT4 100 (10) Anemia Status: Acute Problem Text: at baseline hgb 9s (11) CKD (chronic kidney disease) stage 3, GFR 30-59 ml/min Status: Chronic Response to Treatment: Improving Problem Text: baseline cr 1.5-1.7 Plan/VTE VTE Prophylaxis Ordered?: Yes Plan Therapy: PT Family Medicine Attending Note: I saw and examined Ms. Calderon, discussed with ANJANA Key. Agree with her note as documented. She is doing ok breathing-villaseñor. She has increased mouth soreness, but this is thrush. We have worked with nursing to make sure that her dentures are out when she rinses and to make sure that she rinses after her pulmonary treatments, especially the ones that have steroids. 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4L CBC/BMP Laboratory Tests 04/15/19 06:29 Karla Garcia Apr 15, 2019 08:42 Toni Lewis MD Apr 15, 2019 17:00
[2019-04-15] MEDS: guaiFENesin ER 600 MG TAB PO SCH ×2 (09:32→20:25)
[2019-04-15] MEDS: BUMETANIDE 1 MG TAB PO SCH ×2 (09:32→16:51)
[2019-04-15] MEDS: busPIRone 10 MG TAB PO SCH ×3 (09:32→20:26)
[2019-04-15] MEDS: ASPIRIN 81 MG ENTERIC TAB PO SCH (09:32)
[2019-04-15] MEDS: PANTOPRAZOLE 40MG TAB (PROTONIX) PO SCH (09:36)
[2019-04-15] MEDS: CALCITRIOL 0.25 MCG CAP (S0169) PO SCH (09:37)
[2019-04-15] MEDS: LOSARTAN 25 MG TAB PO SCH (09:37)
[2019-04-15] MEDS: NYSTATIN 500,000 U/5 ML SUSP UDC SS SCH ×4 (09:37→20:26)
[2019-04-15] MEDS: predniSONE 10 MG TAB PO SCH (09:44)
[2019-04-15] MEDS: APIXABAN 2.5 MG TAB (ELIQUIS) PO SCH ×2 (09:44→20:26)
[2019-04-15 14:00] VITALS: BP 158/52
[2019-04-15] MEDS: ATORVASTATIN 20 MG TAB PO SCH (20:24)
[2019-04-15] MEDS: AMIODARONE 200 MG TAB (PACERONE) PO SCH (20:26)
[2019-04-15] MEDS: LEVEMIR (INSULIN DETEMIR) 1 UNITS/0.01ML SC SCH (20:27)
[2019-04-15 22:00] VITALS: BP 148/59
[2019-04-16] MEDS: SODIUM CHLORIDE HYPERTONIC 3% 15ML NEB SOL INH SCH ×6 (03:55→20:00)
[2019-04-16] MEDS: LEVOTHYROXINE 100MCG TABLET (0.1MG) PO SCH (05:52)
[2019-04-16] MEDS: IPRATROPIUM 0.5MG/ALBUTEROL 2.5MG INH SOL UD 3ML (DUONEB)(J7620) NEB PRN (05:56)
[2019-04-16 06:00] VITALS: BP 138/61
[2019-04-16 06:35] LABS: HEMATOCRIT 27.1 % (36.0-47.0); HEMOGLOBIN 8.2 g/dl (12.0-15.5); MEAN CORPUSCULAR HEMOGLOBIN 26.6 pg (27.0-33.0); MEAN CORPUSCULAR HGB CONC 30.3 g/dl (32.0-36.5); PLATELET COUNT, AUTOMATED 221 10^3/uL (150-450); RED BLOOD COUNT 3.08 10^6/uL (4.00-5.40); WHITE BLOOD COUNT 13.7 10^3/uL (4.0-10.0)
[2019-04-16 07:15] LABS: BLOOD UREA NITROGEN 38 MG/DL (7-18); CALCIUM LEVEL 8.5 MG/DL (8.8-10.2); CARBON DIOXIDE LEVEL 48 MEQ/L (21-32); CHLORIDE LEVEL 93 MEQ/L (98-107); CREATININE FOR GFR 1.31 MG/DL (0.55-1.30); GLOMERULAR FILTRATION RATE 41.5 (>32); GLUCOSE, FASTING 46 MG/DL (70-100); POTASSIUM SERUM 3.4 MEQ/L (3.5-5.1); SODIUM LEVEL 140 MEQ/L (136-145)
[2019-04-16] MEDS: FORMOTEROL FUMARATE 20 MCG/2 ML INHALATION SOLUTION (PERFOROMIST) INH SCH ×2 (07:22→20:00)
[2019-04-16] MEDS: ACETYLCYSTEINE 20% 4 ML VIAL (200MG/ML) INH SCH ×2 (07:22→20:00)
[2019-04-16] MEDS: IPRATROPIUM 0.5MG/ALBUTEROL 2.5MG INH SOL UD 3ML (DUONEB)(J7620) NEB SCH ×3 (07:23→15:03)
[2019-04-16] MEDS: HumaLOG INSULIN (NovoLOG) PER UNIT SC SCH ×4 (07:30→20:54)
--- NOTE | 2019-04-16 08:51 | IPNPDOC ---
Subjective Date Seen The patient was seen on 04/16/19. Subjective Chief Complaint/HPI Pt this morning reports feeling weak and lightheaded, she feels this is remaining from the glu 46 that she experienced this morning. She has since eaten and had her BS retested which demonstrated improvement. She isn't feeling up to going home. General: Reports: Fatigue Constitutional: Denies: Chills, Fever ENT: Denies: Head Aches Skin: Denies: Rash, Lesions Pulmonary: Reports: Dyspnea; Denies: Cough Cardiovascular: Denies: Chest Pain, Palpitations Gastrointestinal: Denies: Nausea, Vomiting, Abdominal Pain Neurological: Reports: Weakness Psych: Reports: Mood Normal Objective Physical Examination General Exam: Positive: Alert, No Acute Distress (appears chronically ill c/w my last encounter with her a few weeks ago. ) Eye Exam: Positive: PERRLA ENT Exam: Positive: Atraumatic, Pharynx Normal, Other ENT Neck Exam: Positive: JVD Chest Exam: Positive: Diminished Heart Exam: Positive: Regular Rhythm, Murmurs Abdomen Exam: Positive: Normal bowel sounds, Soft Extremity Exam: Positive: Edema (2 mm pitting BLE) Skin Exam: Positive: Nl turgor and temperature Psych Exam: Positive: Mental status NL Assessment /Plan Problems (1) Acute and chronic respiratory failure with hypoxia Problem Text: 04/16 - resp status stable this morning, cont current regimen, will plan for DC in AM (04/17). malclearance of secretion-continue muco BID, guai BID 04/09: dyspneic. s/p bronchoscopy lot of mucus removed from airway and firm plug was successfully removed, per Dr. Nielsen, could not do complete BAL 2 desat 04/08: no re-expansion, pulmonary planning bronch tomorrow. 04/06 - Pulmonary has seen patient in consultation. Getting Acapella for mucous plugging/bronchiectasis but patient reports this hurts her chest. chronic 3L NC 04/03 + guai and Acapella to attempt to improve LLL aeration 04/02 BCX2 NG 04/02 RESP PCR - 04/02/19 CT chest: . No evidence of left pleural effusion. 2. Left lower lobe atelectasis/collapse, with central airway filling suggesting possible aspiration 3. Pulmonary hypertension (2) Diastolic CHF, chronic Permanent Comment: ECHO 08/2018: CONCLUSIONS: 1. Severe focal thickening and focal calcific deposits of a 3-cusp aortic valve with severe reduction in aortic cusp mobility. Aortic valve stenosis considered to be severe on the basis of aortic valve area calculation (0.74 cm) and dimensionless index (0.23). Aortic valve stenosis considered to be moderate on the basis of peak aortic valve velocity (3.4 cm/sec) and mean aortic valve gradient (30 mmHg). 2. Mild concentric left ventricle hypertrophy. No regional LV wall motion ab normalities. Normal regional LV wall motion and wall thickening. Left ventricular ejection fraction of 65% by visual estimate. Normal LV systolic function. Grade II LV diastolic dysfunction (normal filling pattern). 3. Moderate left atrial dilatation. 4. Severe mitral annular calcification. Very mild mitral regurgitation. No mitral stenosis. 5. Suggestive of moderate elevation of estimated right ventricle systolic pressure (47 mmHg). Mild tricuspid regurgitation. Normal right ventricle size a nd systolic function. Inferior vena cava dilatation suggestive of elevated central venous pressure of at least 20 mmHg. ADDITIONAL COMMENTS AND RECOMMENDATIONS: Consider aortic valve replacement if the patient is a suitable candidate. DD: Hai Orellana MD, [facility] 08/20/18 9232 Last Edited By: Toni Lewis MD on Mar 21, 2019 18:47 Status: Acute Response to Treatment: Stable Problem Text: Stable on HD bumet 09/15 04/16 K 3.4-gave K 40 po x 1 -6.8L since 04/08-caution c too aggressive preload reduction given severe 04/04 to 54/2.1, 3.3/2.4 c BNP to 2993; therefore, fur 80 IV q8H to HD bum 09/15 and held los 25 04/02 BNP 4023 (03/11 2168) (3) Thrush Status: Acute Response to Treatment: Improving Problem Text: Advised on rinsing mouth post neb txs. Needs to take out dentures and clean them, Dentures need to come out with swish and swallow nystatin (4) Aortic stenosis, severe Status: Chronic Response to Treatment: Stable Problem Text: [facility] and Dr. Herring felt too high risk for TAVR (5) COPD (chronic obstructive pulmonary disease) Status: Chronic Response to Treatment: Improving Problem Text: 04/12/19: wean prednisone. 04/09 will reduce steroid to 20mg daily now that she is post-bronch presumed contributor to LLL volume loss. SoluMedrol 40 q8 Nebs alb/Ipra (6) JASPAL (obstructive sleep apnea) Status: Chronic (7) Atrial fibrillation Status: Chronic Problem Text: RC dilt CD 180. Also on Amiodarone. ECG: Sinus maday on admission. HR running 50s and 60s per VS stroke prophylaxis on Eliquis at 2.5, bid. (8) Diabetes mellitus Status: Chronic Problem Text: HD glar 31 QHS-labile BG given fluctuating GC dosages 04/16 FSBS 46 this morning, very symptomatic, decreased ins det 40 QHS to 35 QHS, monitor. (9) Hypothyroidism Status: Chronic Problem Text: on HD LT4 100 (10) Anemia Status: Acute Problem Text: at baseline hgb 9s (11) CKD (chronic kidney disease) stage 3, GFR 30-59 ml/min Status: Chronic Response to Treatment: Improving Problem Text: baseline cr 1.5-1.7 (12) Physical deconditioning Status: Chronic Problem Text: 04/13 safe to dc home per PT Plan/VTE VTE Prophylaxis Ordered?: Yes Plan Therapy: PT VS, I&O, 24H, Fishbone Vital Signs/I&O Vital Signs Date Time Temp Pulse Resp B/P (MAP) Pulse Ox O2 Delivery O2 Flow Rate FiO2 04/16/19 06:00 98.3 70 18 138/61 (86) 97 04/15/19 21:00 4.0 04/15/19 14:00 Nasal Cannula I&O- Last 24 Hours up to 6 AM 04/16/19 06:00 Intake Total 1320 ml Balance 1320 ml Laboratory Data 24H LABS Laboratory Tests 2 04/15/19 12:33: Bedside Glucose (Misc Panel) 130H 04/15/19 17:06: Bedside Glucose (Misc Panel) 274H 04/15/19 20:12: Bedside Glucose (Misc Panel) 329H 04/16/19 05:41: Nucleated Red Blood Cells % (auto) 0.0, Anion Gap , Glomerular Filtration Rate 41.5, Calcium Level 8.5L 04/16/19 06:23: Bedside Glucose (Misc Panel) 46L 04/16/19 07:44: Bedside Glucose (Misc Panel) 110 CBC/BMP Laboratory Tests 04/16/19 05:41 HARRIETT TELLO PA-C Apr 16, 2019 08:51 Leroy Rueda M.D. Apr 16, 2019 17:45
[2019-04-16] MEDS: NYSTATIN 500,000 U/5 ML SUSP UDC SS SCH ×4 (09:46→20:53)
[2019-04-16] MEDS: guaiFENesin ER 600 MG TAB PO SCH ×2 (09:47→20:54)
[2019-04-16] MEDS: BUMETANIDE 1 MG TAB PO SCH ×2 (09:47→17:49)
[2019-04-16] MEDS: ASPIRIN 81 MG ENTERIC TAB PO SCH (09:47)
[2019-04-16] MEDS: PANTOPRAZOLE 40MG TAB (PROTONIX) PO SCH (09:47)
[2019-04-16] MEDS: busPIRone 10 MG TAB PO SCH ×3 (09:49→20:53)
[2019-04-16] MEDS: predniSONE 10 MG TAB PO SCH (09:49)
[2019-04-16] MEDS: CALCITRIOL 0.25 MCG CAP (S0169) PO SCH (09:49)
[2019-04-16] MEDS: APIXABAN 2.5 MG TAB (ELIQUIS) PO SCH ×2 (09:49→20:53)
[2019-04-16] MEDS: LOSARTAN 25 MG TAB PO SCH (09:50)
[2019-04-16 14:00] VITALS: BP 150/72
[2019-04-16] MEDS ORDERED: POTASSIUM CHLORIDE 10 MEQ SR TABLET PO ONE (18:00)
--- NOTE | 2019-04-16 18:06 | REPVR ---
PROCEDURE INFORMATION: Exam: CT Head Without Contrast Exam date and time: 04/16/2019 5:37 PM Clinical history: 83 years old, female; Dizziness and other: Low blood pressure; Additional info: Rule out stroke TECHNIQUE: Imaging protocol: Computed tomography of the head without contrast. Radiation optimization: All CT scans at this facility use at least one of these dose optimization techniques: automated exposure control; mA and/or kV adjustment per patient size (includes targeted exams where dose is matched to clinical indication); or iterative reconstruction. Other technique: STROKE PROTOCOL was implemented. COMPARISON: CT Head without contrast 07/23/2017 2:47 AM FINDINGS: Brain: No intracranial mass, focal mass effect or midline shift. No acute intracranial hemorrhage. Mild decreased attenuation in periventricular/centrum semiovale white matter. No focal effacement of cortical sulci to indicate acute cortical infarct. Ventricles: Prominent ventricles and CSF spaces suggest parenchymal volume loss. Bones/joints: No calvarial fracture or destructive process. Sinuses: Visualized paranasal sinuses are unremarkable. Mastoid air cells: Mastoid air cells are normally aerated. Orbits: Visualized globes and orbits are unremarkable. Soft tissues: No focal extracranial soft tissue swelling. IMPRESSION: 1. No acute intracranial abnormality. 2. Atrophy and chronic microangiopathic change in supratentorial white matter. ASSESSMENT: ASPECTS (Radha Stroke Program Early CT Score) is 10 Electronically signed by: Guy Haq On 04/16/2019 18:05:48 PM
[2019-04-16] MEDS: AMIODARONE 200 MG TAB (PACERONE) PO SCH (20:53)
[2019-04-16] MEDS: ATORVASTATIN 20 MG TAB PO SCH (20:53)
[2019-04-16] MEDS: LEVEMIR (INSULIN DETEMIR) 1 UNITS/0.01ML SC SCH (20:54)
[2019-04-16 22:00] VITALS: BP 168/58
[2019-04-17] MEDS: IPRATROPIUM 0.5MG/ALBUTEROL 2.5MG INH SOL UD 3ML (DUONEB)(J7620) NEB SCH ×4 (00:19→19:48)
[2019-04-17] MEDS: SODIUM CHLORIDE HYPERTONIC 3% 15ML NEB SOL INH SCH ×6 (02:54→19:48)
[2019-04-17] MEDS: IPRATROPIUM 0.5MG/ALBUTEROL 2.5MG INH SOL UD 3ML (DUONEB)(J7620) NEB PRN (05:11)
[2019-04-17 05:13] VITALS: O2SAT 96
[2019-04-17 06:00] VITALS: BP 150/50
[2019-04-17 06:00] LABS: BASO % 0.3 % (0.0-1.0); EOS # 0.1 10^3/uL (0.0-0.5); EOS % 0.3 % (0.0-3.0); HEMATOCRIT 28.5 % (36.0-47.0); HEMOGLOBIN 8.4 g/dl (12.0-15.5); LYMPH # 1.7 10^3/uL (1.5-5.0); LYMPH % 11.7 % (24.0-44.0); MEAN CORPUSCULAR HEMOGLOBIN 26.5 pg (27.0-33.0); MEAN CORPUSCULAR HGB CONC 29.5 g/dl (32.0-36.5); MEAN CORPUSCULAR VOLUME 89.9 fl (80.0-96.0); MONO # 1.2 10^3/uL (0.0-0.8); MONO % 8.2 % (0.0-5.0); NEUTROPHILS # 11.3 10^3/uL (1.5-8.5); NEUTROPHILS % 77.2 % (36.0-66.0); PLATELET COUNT, AUTOMATED 207 10^3/uL (150-450); RED BLOOD COUNT 3.17 10^6/uL (4.00-5.40); WHITE BLOOD COUNT 14.7 10^3/uL (4.0-10.0)
[2019-04-17 06:38] LABS: ALBUMIN 2.4 GM/DL (3.2-5.2); BILIRUBIN,TOTAL 0.5 MG/DL (0.2-1.0); CALCIUM LEVEL 8.8 MG/DL (8.8-10.2); CREATININE FOR GFR 1.25 MG/DL (0.55-1.30); GLOMERULAR FILTRATION RATE 43.8 (>32); MAGNESIUM LEVEL 2.3 MG/DL (1.8-2.4); POTASSIUM SERUM 3.9 MEQ/L (3.5-5.1); TOTAL PROTEIN 5.7 GM/DL (6.4-8.2)
[2019-04-17] MEDS: LEVOTHYROXINE 100MCG TABLET (0.1MG) PO SCH (06:46)
[2019-04-17] MEDS: NYSTATIN 500,000 U/5 ML SUSP UDC SS SCH (07:51)
[2019-04-17] MEDS: BUMETANIDE 1 MG TAB PO SCH ×2 (07:51→16:41)
[2019-04-17] MEDS: HumaLOG INSULIN (NovoLOG) PER UNIT SC SCH ×4 (07:51→21:30)
[2019-04-17] MEDS: LOSARTAN 25 MG TAB PO SCH (07:52)
[2019-04-17] MEDS: busPIRone 10 MG TAB PO SCH ×3 (07:52→21:29)
[2019-04-17] MEDS: predniSONE 10 MG TAB PO SCH (07:52)
[2019-04-17] MEDS: PANTOPRAZOLE 40MG TAB (PROTONIX) PO SCH (07:52)
[2019-04-17] MEDS: APIXABAN 2.5 MG TAB (ELIQUIS) PO SCH ×2 (07:52→21:29)
[2019-04-17] MEDS: guaiFENesin ER 600 MG TAB PO SCH ×2 (07:52→21:29)
[2019-04-17] MEDS: ASPIRIN 81 MG ENTERIC TAB PO SCH (07:52)
[2019-04-17] MEDS: CALCITRIOL 0.25 MCG CAP (S0169) PO SCH (07:53)
[2019-04-17] MEDS: ACETYLCYSTEINE 20% 4 ML VIAL (200MG/ML) INH SCH ×2 (07:55→19:48)
[2019-04-17] MEDS: FORMOTEROL FUMARATE 20 MCG/2 ML INHALATION SOLUTION (PERFOROMIST) INH SCH ×2 (07:55→19:48)
--- NOTE | 2019-04-17 08:38 | REP ---
Clinical: Pneumonia. Technique: PA and lateral. Comparison: 04/02/2019. Findings: Mediastinum and cardiac silhouette are stable with cardiomegaly again suggested. Lung skinner demonstrate diffuse chronic interstitial changes including opacity to the left lower lung zone. Subtle superimposed acute bibasilar atelectasis and small pleural reactions cannot be excluded. No pneumothorax. Skeletal structures stable. Impression: Chronic changes. Cannot exclude superimposed bibasilar processes. Electronically Signed by Thien Mendez MD 04/17/2019 08:28 A
--- NOTE | 2019-04-17 11:29 | IPNPDOC ---
Subjective Date Seen The patient was seen on 04/17/19. Subjective Chief Complaint/HPI I don't feel well. Constitutional: Denies: Chills ENT: Denies: Head Aches Pulmonary: Reports: Dyspnea, Cough Cardiovascular: Denies: Chest Pain, Palpitations Gastrointestinal: Denies: Nausea, Abdominal Pain Genitourinary: Denies: Dysuria Hematologic: Denies: Bruising Neurological: Reports: Weakness Objective Physical Examination General Exam: Positive: Alert Eye Exam: Positive: PERRLA ENT Exam: Positive: Atraumatic, Pharynx Normal (white macules to posterior oropharynx), Other ENT Neck Exam: Positive: JVD Chest Exam: Positive: Rhonchi (expiratory wheezes/ rhonchi, minimal but worse than previous, slightly prolonged expiratory phase), Wheezing, Diminished Heart Exam: Positive: Regular Rhythm, Murmurs Abdomen Exam: Positive: Normal bowel sounds, Soft Extremity Exam: Positive: Edema Skin Exam: Positive: Nl turgor and temperature Psych Exam: Positive: Mental status NL Assessment /Plan Problems (1) Acute and chronic respiratory failure with hypoxia Problem Text: 04/17: feels worse from respiratory point of view. increased work of breathing, malaise also. CXR shows persistent basilar infiltrate left. Will culture sputum and attempt BCx2 and start moxifloxacin with increase in prednisone dose. 04/16 - resp status stable this morning, cont current regimen, will plan for DC in AM (04/17). malclearance of secretion-continue muco BID, guai BID 04/09: dyspneic. s/p bronchoscopy lot of mucus removed from airway and firm plug was successfully removed, per Dr. Nielsen, could not do complete BAL 2 desat 04/08: no re-expansion, pulmonary planning bronch tomorrow. 04/06 - Pulmonary has seen patient in consultation. Getting Acapella for mucous plugging/bronchiectasis but patient reports this hurts her chest. chronic 3L NC 04/03 + guai and Acapella to attempt to improve LLL aeration 04/02 BCX2 NG 04/02 RESP PCR - 04/02/19 CT chest: . No evidence of left pleural effusion. 2. Left lower lobe atelectasis/collapse, with central airway filling suggesting possible aspiration 3. Pulmonary hypertension (2) Diastolic CHF, chronic Permanent Comment: ECHO 08/2018: CONCLUSIONS: 1. Severe focal thickening and focal calcific deposits of a 3-cusp aortic valve with severe reduction in aortic cusp mobility. Aortic valve stenosis considered to be severe on the basis of aortic valve area calculation (0.74 cm) and dimensionless index (0.23). Aortic valve stenosis considered to be moderate on the basis of peak aortic valve velocity (3.4 cm/sec) and mean aortic valve gradient (30 mmHg). 2. Mild concentric left ventricle hypertrophy. No regional LV wall motion abnormalities. Normal regional LV wall motion and wall thickening. Left ventricular ejection fraction of 65% by visual estimate. Normal LV systolic function. Grade II LV diastolic dysfunction (normal filling pattern). 3. Moderate left atrial dilatation. 4. Severe mitral annular calcification. Very mild mitral regurgitation. No mitral stenosis. 5. Suggestive of moderate elevation of estimated right ventricle systolic pressure (47 mmHg). Mild tricuspid regurgitation. Normal right ventricle size and systolic function. Inferior vena cava dilatation suggestive of elevated central venous pressure of at least 20 mmHg. ADDITIONAL COMMENTS AND RECOMMENDATIONS: Consider aortic valve replacement if the patient is a suitable candidate. DD: Hai Orellana MD, [facility] 08/20/18 0545 Last Edited By: Toni Lewis MD on Mar 21, 2019 18:47 Status: Acute Response to Treatment: Stable Problem Text: Stable on HD bumet 09/15 04/16 K 3.4-gave K 40 po x 1 -6.8L since 04/08-caution c too aggressive preload reduction given severe 04/04 to 54/2.1, 3.3/2.4 c BNP to 2993; therefore, fur 80 IV q8H to HD bum 09/15 and held los 25 04/02 BNP 4023 (03/11 2168) (3) Thrush Status: Acute Response to Treatment: Improving Problem Text: 04/17 reports sore throat. will change to po diflucan. because she will now be on multiple QTc prolonging agents (amiodarone,diflucan, avelox), will do 48 hours tele to observe for potential QT prolongation which would require change of Rx. Advised on rinsing mouth post neb txs. Needs to take out dentures and clean them, Dentures need to come out with swish and swallow nystatin (4) Aortic stenosis, severe Status: Chronic Response to Treatment: Stable Problem Text: 04/17 rated as "only" moderate with most recent Echo. [facility] and Dr. Herring felt too high risk for TAVR (5) COPD (chronic obstructive pulmonary disease) Status: Chronic Response to Treatment: Improving Problem Text: 04/12/19: wean prednisone. 04/09 will reduce steroid to 20mg daily now that she is post-bronch presumed contributor to LLL volume loss. SoluMedrol 40 q8 Nebs alb/Ipra (6) JASPAL (obstructive sleep apnea) Status: Chronic (7) Atrial fibrillation Status: Chronic Problem Text: RC dilt CD 180. Also on Amiodarone. ECG: Sinus maday on admission. HR running 50s and 60s per VS stroke prophylaxis on Eliquis at 2.5, bid. (8) Diabetes mellitus Status: Chronic Problem Text: 04/17 reduced insulin requirements due to decreasing steroid use so doses of Levemir reduced HD glar 31 QHS-labile BG given fluctuating GC dosages 04/16 FSBS 46 this morning, very symptomatic, decreased ins det 40 QHS to 35 QHS, monitor. (9) Hypothyroidism Status: Chronic Problem Text: on HD LT4 100 (10) Anemia Status: Acute Problem Text: at baseline hgb 9s (11) CKD (chronic kidney disease) stage 3, GFR 30-59 ml/min Status: Chronic Response to Treatment: Improving Problem Text: baseline cr 1.5-1.7 (12) Physical deconditioning Status: Chronic Problem Text: 04/13 safe to dc home per PT Plan/VTE VTE Prophylaxis Ordered?: Yes Plan Therapy: PT VS, I&O, 24H, Fishbone Vital Signs/I&O Vital Signs Date Time Temp Pulse Resp B/P (MAP) Pulse Ox O2 Delivery O2 Flow Rate FiO2 04/17/19 07:53 70 150/54 04/17/19 06:00 98.3 20 99 Nasal Cannula 4.0 I&O- Last 24 Hours up to 6 AM 04/17/19 05:59 Intake Total 1560 ml Output Total 2450 ml Balance -890 ml Laboratory Data 24H LABS Laboratory Tests 2 04/16/19 12:11: Bedside Glucose (Misc Panel) 199H 04/16/19 16:52: Bedside Glucose (Misc Panel) 269H 04/16/19 20:42: Bedside Glucose (Misc Panel) 304H 04/17/19 05:22: Immature Granulocyte % (Auto) 2.3, Neutrophils (%) (Auto) 77.2H, Lymphocytes (%) (Auto) 11.7L, Monocytes (%) (Auto) 8.2H, Eosinophils (%) (Auto) 0.3, Basophils (%) (Auto) 0.3, Neutrophils # (Auto) 11.3H, Lymphocytes # (Auto) 1.7, Monocytes # (Auto) 1.2H, Eosinophils # (Auto) 0.1, Basophils # (Auto) 0.0, Nucleated Red Blood Cells % (auto) 0.0, Anion Gap 3L, Glomerular Filtration Rate 43.8, Calcium Level 8.8, Magnesium Level 2.3, Total Bilirubin 0.5, Aspartate Amino Transf (AST/SGOT) 25, Alanine Aminotransferase (ALT/SGPT) 53, Alkaline Phosphatase 69, Total Protein 5.7L, Albumin 2.4L, Albumin/Globulin Ratio 0.73L CBC/BMP Laboratory Tests 04/17/19 05:22 David Pollack MD Apr 17, 2019 11:29
[2019-04-17] MEDS: MOXIFLOXACIN 400 MG TAB PO SCH (11:35)
[2019-04-17] MEDS: predniSONE 20 MG TAB PO SCH (11:35)
[2019-04-17] MEDS ORDERED: FLUCONAZOLE 100 MG TAB PO ONE (12:00)
[2019-04-17 14:00] VITALS: BP 140/62
[2019-04-17] MEDS: ATORVASTATIN 20 MG TAB PO SCH (21:29)
[2019-04-17] MEDS: LEVEMIR (INSULIN DETEMIR) 1 UNITS/0.01ML SC SCH (21:30)
[2019-04-17] MEDS: AMIODARONE 200 MG TAB (PACERONE) PO SCH (21:30)
[2019-04-17 22:00] VITALS: BP 138/50
[2019-04-18] VITALS (7 sets, daily range): BP systolic 149–170; BP diastolic 60–72
[2019-04-18] MEDS: MOXIFLOXACIN 400 MG TAB PO SCH (06:26)
[2019-04-18] MEDS: LEVOTHYROXINE 100MCG TABLET (0.1MG) PO SCH (06:26)
[2019-04-18] MEDS: FORMOTEROL FUMARATE 20 MCG/2 ML INHALATION SOLUTION (PERFOROMIST) INH SCH ×2 (07:27→20:07)
[2019-04-18] MEDS: SODIUM CHLORIDE HYPERTONIC 3% 15ML NEB SOL INH SCH ×5 (07:40→20:00)
[2019-04-18 07:55] LABS: HEMATOCRIT 25.3 % (36.0-47.0); HEMOGLOBIN 7.8 g/dl (12.0-15.5); MEAN CORPUSCULAR HEMOGLOBIN 27.5 pg (27.0-33.0); MEAN CORPUSCULAR HGB CONC 30.8 g/dl (32.0-36.5); MEAN CORPUSCULAR VOLUME 89.1 fl (80.0-96.0); PLATELET COUNT, AUTOMATED 190 10^3/uL (150-450); RED BLOOD COUNT 2.84 10^6/uL (4.00-5.40); WHITE BLOOD COUNT 20.3 10^3/uL (4.0-10.0)
[2019-04-18] MEDS: ACETYLCYSTEINE 20% 4 ML VIAL (200MG/ML) INH SCH ×2 (08:00→20:00)
[2019-04-18] MEDS: IPRATROPIUM 0.5MG/ALBUTEROL 2.5MG INH SOL UD 3ML (DUONEB)(J7620) NEB SCH ×2 (08:00→15:10)
[2019-04-18 08:40] LABS: CALCIUM LEVEL 8.3 MG/DL (8.8-10.2); CREATININE FOR GFR 1.42 MG/DL (0.55-1.30); GLOMERULAR FILTRATION RATE 37.8 (>32); POTASSIUM SERUM 3.6 MEQ/L (3.5-5.1)
[2019-04-18] MEDS: FLUCONAZOLE 50MG TABLET PO SCH (08:52)
[2019-04-18] MEDS: ASPIRIN 81 MG ENTERIC TAB PO SCH (08:52)
[2019-04-18] MEDS: predniSONE 20 MG TAB PO SCH (08:54)
[2019-04-18] MEDS: LOSARTAN 25 MG TAB PO SCH (08:55)
[2019-04-18] MEDS: APIXABAN 2.5 MG TAB (ELIQUIS) PO SCH ×2 (08:55→21:01)
[2019-04-18] MEDS: CALCITRIOL 0.25 MCG CAP (S0169) PO SCH (08:55)
[2019-04-18] MEDS: PANTOPRAZOLE 40MG TAB (PROTONIX) PO SCH (08:55)
[2019-04-18] MEDS: busPIRone 10 MG TAB PO SCH ×3 (08:55→21:01)
[2019-04-18] MEDS: BUMETANIDE 1 MG TAB PO SCH (08:55)
[2019-04-18] MEDS: guaiFENesin ER 600 MG TAB PO SCH ×2 (08:55→21:03)
[2019-04-18] MEDS: HumaLOG INSULIN (NovoLOG) PER UNIT SC SCH ×4 (08:56→21:04)
--- NOTE | 2019-04-18 11:16 | IPNPDOC ---
Subjective Date Seen The patient was seen on 04/18/19. Subjective Chief Complaint/HPI feels woozy again. not vertigo. no pleuritic pain. no chills. ENT: Reports: Sore Throat; Denies: Head Aches, Dysphagia Pulmonary: Reports: Dyspnea (chronic stable); Denies: Pleuritic Chest Pain Gastrointestinal: Denies: Nausea, Abdominal Pain Genitourinary: Denies: Dysuria Hematologic: Reports: Petecchia (chronic, no changes) Objective Physical Examination General Exam: Positive: Alert Eye Exam: Positive: PERRLA ENT Exam: Positive: Atraumatic, Pharynx Normal (white macules to posterior oropharynx), Other ENT (thrush less apparent but she still feels it.) Neck Exam: Positive: JVD Chest Exam: Positive: Wheezing, Diminished; Negative: Rhonchi (minimal basilar rales left. less air flow noise than yesterday) Heart Exam: Positive: Regular Rhythm, Murmurs Abdomen Exam: Positive: Normal bowel sounds, Soft Extremity Exam: Positive: Edema (no pitting.) Skin Exam: Positive: Nl turgor and temperature Psych Exam: Positive: Mental status NL Assessment /Plan Problems (1) Acute and chronic respiratory failure with hypoxia Problem Text: 04/18 no worse than yesterday. she wasn't able to produce a specimen for sputum culture. White count up today. likely some contribution from increased steroid dose. 04/17: feels worse from respiratory point of view. increased work of breathing, malaise also. CXR shows persistent basilar infiltrate left. Will culture sputum and attempt BCx2 and start moxifloxacin with increase in prednisone dose. 04/16 - resp status stable this morning, cont current regimen, will plan for DC in AM (04/17). malclearance of secretion-continue muco BID, guai BID 04/09: dyspneic. s/p bronchoscopy lot of mucus removed from airway and firm plug was successfully removed, per Dr. Nielsen, could not do complete BAL 2 desat 04/08: no re-expansion, pulmonary planning bronch tomorrow. 04/06 - Pulmonary has seen patient in consultation. Getting Acapella for mucous plugging/bronchiectasis but patient reports this hurts her chest. chronic 3L NC 04/03 + guai and Acapella to attempt to improve LLL aeration 04/02 BCX2 NG 04/02 RESP PCR - 04/02/19 CT chest: . No evidence of left pleural effusion. 2. Left lower lobe atelectasis/collapse, with central airway filling suggesting possible aspiration 3. Pulmonary hypertension (2) Diastolic CHF, chronic Permanent Comment: ECHO 08/2018: CONCLUSIONS: 1. Severe focal thickening and focal calcific deposits of a 3-cusp aortic valve with severe reduction in aortic cusp mobility. Aortic valve stenosis considered to be severe on the basis of aortic valve area calculation (0.74 cm) and dimensionless index (0.23). Aortic valve stenosis considered to be moderate on the basis of peak aortic valve velocity (3.4 cm/sec) and mean aortic valve gradient (30 mmHg). 2. Mild concentric left ventricle hypertrophy. No regional LV wall motion abnormalities. Normal regional LV wall motion and wall thickening. Left ventricular ejection fraction of 65% by visual estimate. Normal LV systolic fu nction. Grade II LV diastolic dysfunction (normal filling pattern). 3. Moderate left atrial dilatation. 4. Severe mitral annular calcification. Very mild mitral regurgitation. No mitral stenosis. 5. Suggestive of moderate elevation of estimated right ventricle systolic pressure (47 mmHg). Mild tricuspid regurgitation. Normal right ventricle size and systolic function. Inferior vena cava dilatation suggestive of elevated central venous pressure of at least 20 mmHg. ADDITIONAL COMMENTS AND RECOMMENDATIONS: Consider aortic valve replacement if the patient is a suitable candidate. DD: Hai Orellana MD, [facility] 08/20/18 [id number] Last Edited By: Toni Lewis MD on Mar 21, 2019 18:47 Status: Acute Response to Treatment: Stable Problem Text: 04/18: more than a liter negative yesterday. creatinine up today so will reduce bumetanide to 4mg in am only. Stable on HD bumet 09/15 04/16 K 3.4-gave K 40 po x 1 -6.8L since 04/08-caution c too aggressive preload reduction given severe 04/04 to 54/2.1, 3.3/2.4 c BNP to 2993; therefore, fur 80 IV q8H to HD bum 09/15 and held los 25 04/02 BNP 4023 (03/11 2168) (3) Thrush Status: Acute Response to Treatment: Improving Problem Text: 04/17 reports sore throat. will change to po diflucan. because she will now be on multiple QTc prolonging agents (amiodarone,diflucan, avelox), will do 48 hours tele to observe for potential QT prolongation which would require change of Rx. Advised on rinsing mouth post neb txs. Needs to take out dentures and clean them, Dentures need to come out with swish and swallow nystatin (4) Aortic stenosis, severe Status: Chronic Response to Treatment: Stable Problem Text: 04/17 rated as "only" moderate with most recent Echo. [facility] and Dr. Herring felt too high risk for TAVR (5) COPD (chronic obstructive pulmonary disease) Status: Chronic Response to Treatment: Improving Problem Text: 04/18 prednisone boosted yesterday due to worsening respiratory symptoms 04/12/19: wean prednisone. 04/09 will reduce steroid to 20mg daily now that she is post-bronch presumed contributor to LLL volume loss. SoluMedrol 40 q8 Nebs alb/Ipra (6) JASPAL (obstructive sleep apnea) Status: Chronic (7) Atrial fibrillation Status: Chronic Problem Text: RC dilt CD 180. Also on Amiodarone. ECG: Sinus maday on admission. HR running 50s and 60s per VS stroke prophylaxis on Eliquis at 2.5, bid. (8) Diabetes mellitus Status: Chronic Problem Text: 04/17 reduced insulin requirements due to decreasing steroid use so doses of Levemir reduced HD glar 31 QHS-labile BG given fluctuating GC dosages 04/16 FSBS 46 this morning, very symptomatic, decreased ins det 40 QHS to 35 QHS, monitor. (9) Hypothyroidism Status: Chronic Problem Text: on HD LT4 100 (10) Anemia Status: Acute Problem Text: at baseline hgb 9s (11) CKD (chronic kidney disease) stage 3, GFR 30-59 ml/min Status: Chronic Response to Treatment: Worse Problem Text: 04/18 creatinine up a little today. baseline cr 1.5-1.7 (12) Physical deconditioning Status: Chronic Problem Text: 04/13 safe to dc home per PT Plan/VTE VTE Prophylaxis Ordered?: Yes Plan Therapy: PT VS, I&O, 24H, Fishbone Vital Signs/I&O Vital Signs Date Time Temp Pulse Resp B/P (MAP) Pulse Ox O2 Delivery O2 Flow Rate FiO2 04/18/19 09:00 4.0 04/18/19 08:55 150/61 04/18/19 08:54 81 04/18/19 06:00 98.2 16 100 Nasal Cannula I&O- Last 24 Hours up to 6 AM 04/18/19 05:59 Intake Total 1000 ml Output Total 2775 ml Balance -1775 ml Laboratory Data 24H LABS Laboratory Tests 2 04/17/19 11:43: Bedside Glucose (Misc Panel) 228H 04/17/19 16:49: Bedside Glucose (Misc Panel) 343H 04/17/19 20:26: Bedside Glucose (Misc Panel) 398H 04/18/19 05:50: Bedside Glucose (Misc Panel) 166H 04/18/19 07:40: Nucleated Red Blood Cells % (auto) 0.0, Anion Gap 2L, Glomerular Filtration Rate 37.8, Calcium Level 8.3L CBC/BMP Laboratory Tests 04/18/19 07:40 Microbiology Microbiology 04/17/19 Blood Culture, Received Pending 04/17/19 Blood Culture, Received Pending David Pollack MD Apr 18, 2019 11:16
[2019-04-18] MEDS: IPRATROPIUM 0.5MG/ALBUTEROL 2.5MG INH SOL UD 3ML (DUONEB)(J7620) NEB PRN (11:21)
--- NOTE | 2019-04-18 13:02 | REP ---
Clinical: Follow up. Technique: PA and lateral. Comparison: 04/17/2019. Findings: Left lower lobe opacity consistent with consolidation along with right basilar atelectasis and possible small pleural reactions are again suggested. There is no pneumothorax. Impression: No significant change. Continued evidence for left lower lobe consolidation and right basilar atelectasis with possible small pleural reactions. Electronically Signed by Thien Mendez MD 04/18/2019 12:53 P
[2019-04-18] MEDS: ATORVASTATIN 20 MG TAB PO SCH (21:02)
[2019-04-18] MEDS: AMIODARONE 200 MG TAB (PACERONE) PO SCH (21:03)
[2019-04-18] MEDS: LEVEMIR (INSULIN DETEMIR) 1 UNITS/0.01ML SC SCH (21:05)
[2019-04-19] MEDS: MOXIFLOXACIN 400 MG TAB PO SCH (05:40)
[2019-04-19] MEDS: LEVOTHYROXINE 100MCG TABLET (0.1MG) PO SCH (05:40)
[2019-04-19 05:57] LABS: HEMATOCRIT 28.1 % (36.0-47.0); HEMOGLOBIN 8.5 g/dl (12.0-15.5); MEAN CORPUSCULAR HEMOGLOBIN 26.7 pg (27.0-33.0); MEAN CORPUSCULAR HGB CONC 30.2 g/dl (32.0-36.5); MEAN CORPUSCULAR VOLUME 88.4 fl (80.0-96.0); RED BLOOD COUNT 3.18 10^6/uL (4.00-5.40); WHITE BLOOD COUNT 11.3 10^3/uL (4.0-10.0)
[2019-04-19 06:03] LABS: PLATELET COUNT, AUTOMATED 54 10^3/uL (150-450)
[2019-04-19 06:05] VITALS: BP 171/66
[2019-04-19 06:15] LABS: CALCIUM LEVEL 8.5 MG/DL (8.8-10.2); CREATININE FOR GFR 1.5 MG/DL (0.55-1.30); GLOMERULAR FILTRATION RATE 35.5 (>32); MAGNESIUM LEVEL 2.5 MG/DL (1.8-2.4); POTASSIUM SERUM 4.2 MEQ/L (3.5-5.1)
[2019-04-19] MEDS: ACETYLCYSTEINE 20% 4 ML VIAL (200MG/ML) INH SCH ×2 (07:35→19:22)
[2019-04-19] MEDS: FORMOTEROL FUMARATE 20 MCG/2 ML INHALATION SOLUTION (PERFOROMIST) INH SCH ×2 (07:35→19:22)
[2019-04-19] MEDS: IPRATROPIUM 0.5MG/ALBUTEROL 2.5MG INH SOL UD 3ML (DUONEB)(J7620) NEB SCH ×4 (07:35→23:44)
[2019-04-19] MEDS: SODIUM CHLORIDE HYPERTONIC 3% 15ML NEB SOL INH SCH ×6 (07:36→23:46)
[2019-04-19] MEDS: BUMETANIDE 1 MG TAB PO SCH (08:22)
[2019-04-19] MEDS: busPIRone 10 MG TAB PO SCH ×3 (08:23→20:15)
[2019-04-19] MEDS: predniSONE 20 MG TAB PO SCH (08:23)
[2019-04-19] MEDS: APIXABAN 2.5 MG TAB (ELIQUIS) PO SCH ×2 (08:23→20:16)
[2019-04-19] MEDS: PANTOPRAZOLE 40MG TAB (PROTONIX) PO SCH (08:23)
[2019-04-19] MEDS: CALCITRIOL 0.25 MCG CAP (S0169) PO SCH (08:23)
[2019-04-19] MEDS: FLUCONAZOLE 50MG TABLET PO SCH (08:23)
[2019-04-19] MEDS: ASPIRIN 81 MG ENTERIC TAB PO SCH (08:23)
[2019-04-19] MEDS: LOSARTAN 25 MG TAB PO SCH (08:24)
[2019-04-19] MEDS: HumaLOG INSULIN (NovoLOG) PER UNIT SC SCH ×4 (08:24→21:18)
[2019-04-19] MEDS: guaiFENesin ER 600 MG TAB PO SCH ×2 (08:24→20:15)
--- NOTE | 2019-04-19 10:20 | IPNPDOC ---
Subjective Date Seen The patient was seen on 04/19/19. Subjective Chief Complaint/HPI Pt this morning without new concerns. She states that she is feeling better, her breathing is close to baseline, but she does cont to cough. She has some sputum production and a specimen was collected this morning. She cont to wish to return home. She will have PH and her family is working to hire private care. General: Reports: Fatigue Constitutional: Denies: Chills, Fever Pulmonary: Reports: Cough; Denies: Dyspnea Cardiovascular: Denies: Chest Pain, Palpitations Gastrointestinal: Denies: Nausea, Vomiting Neurological: Denies: Weakness Psych: Reports: Mood Normal Objective Physical Examination General Exam: Positive: Alert, No Acute Distress Eye Exam: Positive: PERRLA ENT Exam: Positive: Atraumatic, Pharynx Normal (white macules to posterior oropharynx), Other ENT (thrush less apparent but she still feels it.) Neck Exam: Positive: JVD Chest Exam: Positive: Wheezing, Diminished; Negative: Rhonchi (minimal basilar rales left. less air flow noise than yesterday) Heart Exam: Positive: Regular Rhythm, Murmurs Abdomen Exam: Positive: Normal bowel sounds, Soft Extremity Exam: Positive: Edema (no pitting.) Skin Exam: Positive: Nl turgor and temperature Psych Exam: Positive: Mental status NL Assessment /Plan Problems (1) Thrombocytopenia Status: Acute Problem Text: only new med: moxi-started 04/17 04/19 54K-plan hold moxi and apix if further decline baseline 04/18 190K (2) Leukocytosis Status: Acute Problem Text: 04/18 to 20K 04/17 + moxi 400 04/17 BCX2 NG 04/19 SCX P 04/17 CXR persistent LLL opacity (3) Anemia Status: Acute Problem Text: 04/18 7.8-tx 1u PRBCs (of note 04/19 plt to 54K) baseline hgb 9s (4) Acute and chronic respiratory failure with hypoxia Problem Text: malclearance of secretion-continue muco BID, guai BID; refuses 3% NS neb chronic 3L NC + chest PT when stable plt 04/09: dyspneic. s/p bronchoscopy lot of mucus removed from airway and firm plug was successfully removed, per Dr. Nielsen, could not do complete BAL 2 desat 04/06 - Pulmonary has seen patient in consultation. Getting Acapella for mucous plugging/bronchiectasis but patient reports this hurts her chest. 04/03 + guai and Acapella to attempt to improve LLL aeration 04/02 BCX2 NG 04/02 RESP PCR - 04/02/19 CT chest: . No evidence of left pleural effusion. 2. Left lower lobe atelectasis/collapse, with central airway filling suggesting possible aspiration 3. Pulmonary hypertension (5) Diastolic CHF, chronic Permanent Comment: ECHO 08/2018: CONCLUSIONS: 1. Severe focal thickening and focal calcific deposits of a 3-cusp aortic valve with severe reduction in aortic cusp mobility. Aortic valve stenosis considered to be severe on the basis of aortic valve area calculation (0.74 cm) and dimensionless index (0.23). Aortic valve stenosis considered to be moderate on the basis of peak aortic valve velocity (3.4 cm/sec) and mean aortic valve gradient (30 mmHg). 2. Mild concentric left ventricle hypertrophy. No regional LV wall motion abnormalities. Normal regional LV wall motion and wall thickening. Left ventricular ejection fraction of 65% by visual estimate. Normal LV systolic function. Grade II LV diastolic dysfunction (normal filling pattern). 3. Moderate left atrial dilatation. 4. Severe mitral annular calcification. Very mild mitral regurgitation. No mitral stenosis. 5. Suggestive of moderate elevation of estimated right ventricle systolic pressure (47 mmHg). Mild tricuspid regurgitation. Normal right ventricle size and systolic function. Inferior vena cava dilatation suggestive of elevated central venous pressure of at least 20 mmHg. ADDITIONAL COMMENTS AND RECOMMENDATIONS: Consider aortic valve replacement if the patient is a suitable candidate. DD: Hai Orellana MD, [facility] 08/20/18 1436 Last Edited By: Toni Lewis MD on Mar 21, 2019 18:47 Status: Acute Response to Treatment: Stable Problem Text: Stable on bumet 4 (HD /2) -6.8L since 04/08-caution c too aggressive preload reduction given severe 04/04 to 54/2.1, 3.3/2.4 c BNP to 2993; therefore, fur 80 IV q8H to HD bum /2 and held los 25 04/02 BNP 4023 (03/11 2168) (6) Thrush Status: Acute Response to Treatment: Improving Problem Text: 04/17 reports sore throat. will change to po diflucan. because she will now be on multiple QTc prolonging agents (amiodarone,diflucan, avelox), will do 48 hours tele to observe for potential QT prolongation which would require change of Rx. Advised on rinsing mouth post neb txs. Needs to take out dentures and clean them, Dentures need to come out with swish and swallow nystatin (7) Aortic stenosis, severe Status: Chronic Response to Treatment: Stable Problem Text: 04/17 rated as "only" moderate with most recent Echo. [facility] and Dr. Herring felt too high risk for TAVR (8) COPD (chronic obstructive pulmonary disease) Status: Chronic Response to Treatment: Improving Problem Text: 04/18 prednisone boosted yesterday due to worsening respiratory symptoms 04/12/19: wean prednisone. 04/09 will reduce steroid to 20mg daily now that she is post-bronch presumed contributor to LLL volume loss. SoluMedrol 40 q8 Nebs alb/Ipra (9) JASPAL (obstructive sleep apnea) Status: Chronic (10) Atrial fibrillation Status: Chronic Problem Text: RC dilt CD 180. Also on Amiodarone. ECG: Sinus maday on admission. HR running 50s and 60s per VS stroke prophylaxis on Eliquis at 2.5, bid. (11) Diabetes mellitus Status: Chronic Problem Text: 04/17 reduced insulin requirements due to decreasing steroid use so doses of Levemir reduced HD glar 31 QHS-labile BG given fluctuating GC dosages 04/16 FSBS 46 this morning, very symptomatic, decreased ins det 40 QHS to 35 QHS, monitor. (12) Hypothyroidism Status: Chronic Problem Text: on HD LT4 100 (13) CKD (chronic kidney disease) stage 3, GFR 30-59 ml/min Status: Chronic Response to Treatment: Worse Problem Text: 04/18 creatinine up a little today. baseline cr 1.5-1.7 (14) Physical deconditioning Status: Chronic Problem Text: 04/13 safe to dc home per PT Plan/VTE VTE Prophylaxis Ordered?: Yes Plan Therapy: PT VS, I&O, 24H, Fishbone Vital Signs/I&O Vital Signs Date Time Temp Pulse Resp B/P (MAP) Pulse Ox O2 Delivery O2 Flow Rate FiO2 04/19/19 08:24 171/66 04/19/19 08:23 63 04/19/19 08:00 4.0 04/19/19 06:05 98.3 18 99 Nasal Cannula I&O- Last 24 Hours up to 6 AM 04/19/19 06:00 Intake Total 1712 ml Output Total 2400 ml Balance -688 ml Laboratory Data 24H LABS Laboratory Tests 2 04/18/19 11:59: Bedside Glucose (Misc Panel) 152H 04/18/19 16:42: Bedside Glucose (Misc Panel) 342H 04/18/19 20:30: Bedside Glucose (Misc Panel) 424H 04/19/19 05:23: Nucleated Red Blood Cells % (auto) 0.0, Immature Platelet Fraction 3.9, Anion Gap 5L, Glomerular Filtration Rate 35.5, Calcium Level 8.5L, Magnesium Level 2.5H CBC/BMP Laboratory Tests 04/19/19 05:23 Microbiology Microbiology 04/19/19 Gram Stain, Received Pending 04/19/19 Sputum Culture, Received Pending 04/17/19 Blood Culture - Preliminary, Resulted No growth after 24 hours . All specim... 04/17/19 Blood Culture - Preliminary, Resulted No growth after 24 hours . All specim... HARRIETT TELLO PA-C Apr 19, 2019 10:20 Leroy Rueda M.D. Apr 19, 2019 17:47
[2019-04-19] MEDS: IPRATROPIUM 0.5MG/ALBUTEROL 2.5MG INH SOL UD 3ML (DUONEB)(J7620) NEB PRN (11:47)
[2019-04-19 15:20] VITALS: BP 158/62
[2019-04-19 19:10] LABS: BASO % 0.2 % (0.0-1.0); HEMATOCRIT 28.7 % (36.0-47.0); HEMOGLOBIN 8.6 g/dl (12.0-15.5); LYMPH % 1.3 % (24.0-44.0); MONO # 0.3 10^3/uL (0.0-0.8); MONO % 1.9 % (0.0-5.0); NEUTROPHILS # 16.2 10^3/uL (1.5-8.5); NEUTROPHILS % 95.2 % (36.0-66.0); RED BLOOD COUNT 3.19 10^6/uL (4.00-5.40)
[2019-04-19 19:12] LABS: LYMPH # 0.2 10^3/uL (1.5-5.0)
[2019-04-19 19:13] LABS: PLATELET COUNT, AUTOMATED 190 10^3/uL (150-450)
[2019-04-19] MEDS: ATORVASTATIN 20 MG TAB PO SCH (20:16)
[2019-04-19] MEDS: AMIODARONE 200 MG TAB (PACERONE) PO SCH (20:16)
[2019-04-19] MEDS: LEVEMIR (INSULIN DETEMIR) 1 UNITS/0.01ML SC SCH (21:17)
[2019-04-19 22:00] VITALS: BP 158/68
[2019-04-20] MEDS: SODIUM CHLORIDE HYPERTONIC 3% 15ML NEB SOL INH SCH ×5 (04:00→20:00)
[2019-04-20] MEDS: LEVOTHYROXINE 100MCG TABLET (0.1MG) PO SCH (05:51)
[2019-04-20] MEDS: MOXIFLOXACIN 400 MG TAB PO SCH (05:51)
[2019-04-20 06:00] VITALS: BP 149/69
[2019-04-20 06:59] LABS: HEMATOCRIT 27.2 % (36.0-47.0); HEMOGLOBIN 8.4 g/dl (12.0-15.5); MEAN CORPUSCULAR HEMOGLOBIN 27.4 pg (27.0-33.0); MEAN CORPUSCULAR HGB CONC 30.9 g/dl (32.0-36.5); MEAN CORPUSCULAR VOLUME 88.6 fl (80.0-96.0); PLATELET COUNT, AUTOMATED 182 10^3/uL (150-450); RED BLOOD COUNT 3.07 10^6/uL (4.00-5.40); WHITE BLOOD COUNT 15.9 10^3/uL (4.0-10.0)
[2019-04-20] MEDS: ACETYLCYSTEINE 20% 4 ML VIAL (200MG/ML) INH SCH ×2 (07:18→20:00)
[2019-04-20] MEDS: IPRATROPIUM 0.5MG/ALBUTEROL 2.5MG INH SOL UD 3ML (DUONEB)(J7620) NEB SCH ×3 (07:18→20:39)
[2019-04-20] MEDS: FORMOTEROL FUMARATE 20 MCG/2 ML INHALATION SOLUTION (PERFOROMIST) INH SCH ×2 (07:18→20:39)
[2019-04-20 07:19] LABS: CALCIUM LEVEL 8.4 MG/DL (8.8-10.2); CREATININE FOR GFR 1.35 MG/DL (0.55-1.30); GLOMERULAR FILTRATION RATE 40.1 (>32); MAGNESIUM LEVEL 2.4 MG/DL (1.8-2.4); POTASSIUM SERUM 4.2 MEQ/L (3.5-5.1)
[2019-04-20] MEDS: predniSONE 20 MG TAB PO SCH (08:13)
[2019-04-20] MEDS: guaiFENesin ER 600 MG TAB PO SCH ×2 (08:13→22:17)
[2019-04-20] MEDS: BUMETANIDE 1 MG TAB PO SCH (08:13)
[2019-04-20] MEDS: ASPIRIN 81 MG ENTERIC TAB PO SCH (08:13)
[2019-04-20] MEDS: LOSARTAN 25 MG TAB PO SCH (08:14)
[2019-04-20] MEDS: APIXABAN 2.5 MG TAB (ELIQUIS) PO SCH ×2 (08:14→22:16)
[2019-04-20] MEDS: CALCITRIOL 0.25 MCG CAP (S0169) PO SCH (08:14)
[2019-04-20] MEDS: busPIRone 10 MG TAB PO SCH ×3 (08:14→22:16)
[2019-04-20] MEDS: PANTOPRAZOLE 40MG TAB (PROTONIX) PO SCH (08:14)
[2019-04-20] MEDS: HumaLOG INSULIN (NovoLOG) PER UNIT SC SCH ×4 (08:15→22:17)
--- NOTE | 2019-04-20 09:21 | IPNPDOC ---
Subjective Date Seen The patient was seen on 04/20/19. Subjective Chief Complaint/HPI Pt this morning states that she cont to feel SOB, this worsened over the weekend and hasn't improved. She states that she doens't feel strong enough to go home as a result of her increased SOB. Slight cough, no significant production. General: Reports: Fatigue Constitutional: Denies: Chills, Fever ENT: Denies: Head Aches Pulmonary: Reports: Dyspnea, Cough Cardiovascular: Denies: Chest Pain, Palpitations Gastrointestinal: Denies: Nausea, Vomiting, Abdominal Pain, Diarrhea Neurological: Reports: Weakness Psych: Reports: Mood Normal Objective Physical Examination General Exam: Positive: Alert, No Acute Distress Eye Exam: Positive: PERRLA ENT Exam: Positive: Atraumatic, Pharynx Normal (white macules to posterior oropharynx), Other ENT (thrush less apparent but she still feels it.) Neck Exam: Positive: JVD Chest Exam: Positive: Wheezing, Diminished; Negative: Rhonchi (minimal basilar rales left. less air flow noise than ) Heart Exam: Positive: Regular Rhythm, Murmurs Abdomen Exam: Positive: Normal bowel sounds, Soft Extremity Exam: Positive: Edema (no pitting.) Skin Exam: Positive: Nl turgor and temperature Psych Exam: Positive: Mental status NL Assessment /Plan Problems (1) Leukocytosis Status: Acute Problem Text: D4 moxi 04/20 down to 15.9, improved CXR 04/18 to 20K 04/17 + moxi 400 04/17 BCX2 NG 04/19 SCX P 04/17 CXR persistent LLL opacity (2) Thrombocytopenia Status: Acute Problem Text: 04/20 suspect this was lab error, repeat shows normal and stable plt count. 04/19 only new med: moxi-started 04/17 04/19 54K-plan hold moxi and apix if further decline baseline 04/18 190K (3) Anemia Status: Acute Problem Text: 04/18 7.8-tx 1u PRBCs (of note 04/19 plt to 54K) baseline hgb 9s (4) Acute and chronic respiratory failure with hypoxia Problem Text: malclearance of secretion-continue muco BID, guai BID; refuses 3% NS neb chronic 3L NC 04/20 + chest PT c nebs 10/25: dyspneic. s/p bronchoscopy lot of mucus removed from airway and firm plug was successfully removed, per Dr. Nielsen, could not do complete BAL 2 desat 04/06 - Pulmonary has seen patient in consultation. Getting Acapella for mucous plugging/bronchiectasis but patient reports this hurts her chest. 04/03 + guai and Acapella to attempt to improve LLL aeration 04/02 BCX2 NG 04/02 RESP PCR - 04/02/19 CT chest: . No evidence of left pleural effusion. 2. Left lower lobe atelectasis/collapse, with central airway filling suggesting possible aspiration 3. Pulmonary hypertension (5) Diastolic CHF, chronic Permanent Comment: ECHO 08/2018: CONCLUSIONS: 1. Severe focal thickening and focal calcific deposits of a 3-cusp aortic valve with severe reduction in aortic cusp mobility. Aortic valve stenosis considered to be severe on the basis of aortic valve area calculation (0.74 cm) and dimensionless index (0.23). Aortic valve stenosis considered to be moderate on the basis of peak aortic valve velocity (3.4 cm/sec) and mean aortic valve gradient (30 mmHg). 2. Mild concentric left ventricle hypertrophy. No regional LV wall motion abnormalities. Normal regional LV wall motion and wall thickening. Left ventricular ejection fraction of 65% by visual estimate. Normal LV systolic function. Grade II LV diastolic dysfunction (normal filling pattern). 3. Moderate left atrial dilatation. 4. Severe mitral annular calcification. Very mild mitral regurgitation. No mitral stenosis. 5. Suggestive of moderate elevation of estimated right ventricle systolic pressure (47 mmHg). Mild tricuspid regurgitation. Normal right ventricle size and systolic function. Inferior vena cava dilatation suggestive of elevated central venous pressure of at least 20 mmHg. ADDITIONAL COMMENTS AND RECOMMENDATIONS: Consider aortic valve replacement if the patient is a suitable candidate. DD: Hai Orellana MD, [facility] 08/20/18 [id number] Last Edited By: Toni Lewis MD on Mar 21, 2019 18:47 Status: Acute Response to Treatment: Stable Problem Text: Stable on bumet 4 (HD /) -5.3L since 04/16-caution c too aggressive preload reduction given severe 04/04 to 54/2.1, 3.3/2.4 c BNP to 2993; therefore, fur 80 IV q8H to HD bum / and held los 25 04/02 BNP 4023 (03/11 2168) (6) Thrush Status: Acute Response to Treatment: Improving Problem Text: improved sp 04/17 flucon 200 x 1, then 50 QD x 2D Advised on rinsing mouth post neb txs. Needs to take out dentures and clean them, Dentures need to come out with swish and swallow nystatin (7) Aortic stenosis, severe Status: Chronic Response to Treatment: Stable Problem Text: 04/17 rated as "only" moderate with most recent Echo. [facility] and Dr. Herring felt too high risk for TAVR (8) COPD (chronic obstructive pulmonary disease) Status: Chronic Response to Treatment: Improving Problem Text: 04/18 prednisone boosted yesterday due to worsening respiratory symptoms 04/12/19: wean prednisone. 04/09 will reduce steroid to 20mg daily now that she is post-bronch presumed contributor to LLL volume loss. SoluMedrol 40 q8 Nebs alb/Ipra (9) JASPAL (obstructive sleep apnea) Status: Chronic (10) Atrial fibrillation Status: Chronic Problem Text: RC dilt CD 180. Also on Amiodarone. ECG: Sinus maday on admission. HR running 50s and 60s per VS stroke prophylaxis on Eliquis at 2.5, bid. (11) Diabetes mellitus Status: Chronic Problem Text: 04/17 reduced insulin requirements due to decreasing steroid use so doses of Levemir reduced HD glar 31 QHS-labile BG given fluctuating GC dosages 04/16 FSBS 46 this morning, very symptomatic, decreased ins det 40 QHS to 35 QHS, monitor. (12) Hypothyroidism Status: Chronic Problem Text: on HD LT4 100 (13) CKD (chronic kidney disease) stage 3, GFR 30-59 ml/min Status: Chronic Response to Treatment: Worse Problem Text: at baseline cr 1.5-1.7 (14) Physical deconditioning Status: Chronic Problem Text: 04/13 safe to dc home per PT Plan/VTE VTE Prophylaxis Ordered?: Yes Plan Therapy: PT VS, I&O, 24H, Fishbone Vital Signs/I&O Vital Signs Date Time Temp Pulse Resp B/P (MAP) Pulse Ox O2 Delivery O2 Flow Rate FiO2 04/20/19 08:14 77 149/69 04/20/19 08:00 4.0 04/20/19 06:00 97.8 21 99 04/19/19 22:00 Nasal Cannula I&O- Last 24 Hours up to 6 AM 04/20/19 06:00 Intake Total 1375 ml Output Total 2300 ml Balance -925 ml Laboratory Data 24H LABS Laboratory Tests 2 04/19/19 11:49: Bedside Glucose (Misc Panel) 243H 04/19/19 16:49: Bedside Glucose (Misc Panel) 487H 04/19/19 18:13: Immature Granulocyte % (Auto) 1.4, Neutrophils (%) (Auto) 95.2H, Lymphocytes (%) (Auto) 1.3L, Monocytes (%) (Auto) 1.9, Eosinophils (%) (Auto) 0.0, Basophils (%) (Auto) 0.2, Neutrophils # (Auto) 16.2H, Lymphocytes # (Auto) 0.2L, Monocytes # (Auto) 0.3, Eosinophils # (Auto) 0.0, Basophils # (Auto) 0.0, Nucleated Red Blood Cells % (auto) 0.0 04/19/19 20:08: Bedside Glucose (Misc Panel) 460H 04/20/19 05:36: Nucleated Red Blood Cells % (auto) 0.0, Anion Gap 6L, Glomerular Filtration Rate 40.1, Calcium Level 8.4L, Magnesium Level 2.4 04/20/19 07:21: Bedside Glucose (Misc Panel) 225H CBC/BMP Laboratory Tests 04/19/19 18:13 04/20/19 05:36 Microbiology Microbiology 04/19/19 Gram Stain - Final, Resulted 04/19/19 Sputum Culture, Resulted Pending 04/17/19 Blood Culture - Preliminary, Resulted No Growth after 48 hours. All Specime... 04/17/19 Blood Culture - Preliminary, Resulted No Growth after 48 hours. All Specime... HARRIETT TELLO PA-C Apr 20, 2019 09:21 Leroy Rueda M.D. Apr 20, 2019 17:41
--- NOTE | 2019-04-20 11:54 | REP ---
PA and lateral chest: Comparisons are 03/26/2019, 04/17/2019 and 04/18/2019. The left basilar density has slightly improved from the prior studies. The remainder of the lung skinner are clear and unchanged. There is cardiomegaly, unchanged. The violetta, mediastinum, skeletal structures are unchanged. Impression: Slight improvement in the left basilar density. Electronically Signed by lAex Hou MD 04/20/2019 11:45 A
[2019-04-20 14:00] VITALS: BP 134/76
[2019-04-20 22:00] VITALS: BP 144/63
[2019-04-20] MEDS: ATORVASTATIN 20 MG TAB PO SCH (22:16)
[2019-04-20] MEDS: AMIODARONE 200 MG TAB (PACERONE) PO SCH (22:17)
[2019-04-20] MEDS: LEVEMIR (INSULIN DETEMIR) 1 UNITS/0.01ML SC SCH (22:18)
[2019-04-21] MEDS: SODIUM CHLORIDE HYPERTONIC 3% 15ML NEB SOL INH SCH ×7 (02:52→23:23)
[2019-04-21] MEDS: IPRATROPIUM 0.5MG/ALBUTEROL 2.5MG INH SOL UD 3ML (DUONEB)(J7620) NEB PRN (02:53)
[2019-04-21] MEDS: LEVOTHYROXINE 100MCG TABLET (0.1MG) PO SCH (05:57)
[2019-04-21] MEDS: MOXIFLOXACIN 400 MG TAB PO SCH (05:57)
[2019-04-21 06:00] VITALS: BP 181/66
[2019-04-21 06:03] LABS: HEMATOCRIT 28.3 % (36.0-47.0); HEMOGLOBIN 8.8 g/dl (12.0-15.5); MEAN CORPUSCULAR HEMOGLOBIN 27.5 pg (27.0-33.0); MEAN CORPUSCULAR HGB CONC 31.1 g/dl (32.0-36.5); MEAN CORPUSCULAR VOLUME 88.4 fl (80.0-96.0); PLATELET COUNT, AUTOMATED 194 10^3/uL (150-450); WHITE BLOOD COUNT 13.9 10^3/uL (4.0-10.0)
[2019-04-21 06:21] LABS: CREATININE FOR GFR 1.48 MG/DL (0.55-1.30); MAGNESIUM LEVEL 2.6 MG/DL (1.8-2.4); POTASSIUM SERUM 3.8 MEQ/L (3.5-5.1)
[2019-04-21] MEDS: FORMOTEROL FUMARATE 20 MCG/2 ML INHALATION SOLUTION (PERFOROMIST) INH SCH ×2 (07:36→18:05)
[2019-04-21] MEDS: IPRATROPIUM 0.5MG/ALBUTEROL 2.5MG INH SOL UD 3ML (DUONEB)(J7620) NEB SCH ×3 (07:36→23:23)
[2019-04-21] MEDS: ACETYLCYSTEINE 20% 4 ML VIAL (200MG/ML) INH SCH ×2 (07:36→18:05)
[2019-04-21] MEDS: ASPIRIN 81 MG ENTERIC TAB PO SCH (08:43)
[2019-04-21] MEDS: busPIRone 10 MG TAB PO SCH ×3 (08:43→21:36)
[2019-04-21] MEDS: PANTOPRAZOLE 40MG TAB (PROTONIX) PO SCH (08:43)
[2019-04-21] MEDS: HumaLOG INSULIN (NovoLOG) PER UNIT SC SCH ×4 (08:43→21:39)
[2019-04-21] MEDS: BUMETANIDE 1 MG TAB PO SCH (08:44)
[2019-04-21] MEDS: APIXABAN 2.5 MG TAB (ELIQUIS) PO SCH ×2 (08:44→21:37)
[2019-04-21] MEDS: guaiFENesin ER 600 MG TAB PO SCH ×2 (08:44→21:37)
[2019-04-21] MEDS: CALCITRIOL 0.25 MCG CAP (S0169) PO SCH (08:44)
[2019-04-21] MEDS: predniSONE 20 MG TAB PO SCH (08:45)
[2019-04-21] MEDS: LOSARTAN 25 MG TAB PO SCH (08:45)
[2019-04-21 14:00] VITALS: BP 175/63
[2019-04-21 18:00] VITALS: BP 160/58
[2019-04-21 20:00] VITALS: BP 152/54
--- NOTE | 2019-04-21 20:09 | IPNPDOC ---
Subjective Date Seen The patient was seen on 04/21/19. Subjective Chief Complaint/HPI Still with LIGHT and cough. Able to walk to BR and to the door, but can't walk further due to dyspnea Constitutional: Denies: Chills, Fever Pulmonary: Reports: Dyspnea, Cough Cardiovascular: Denies: Chest Pain, Palpitations Gastrointestinal: Denies: Nausea, Vomiting, Abdominal Pain, Diarrhea, Constipation Objective Physical Examination General Exam: Positive: Alert, No Acute Distress Eye Exam: Positive: PERRLA ENT Exam: Positive: Atraumatic, Pharynx Normal (white macules to posterior oropharynx), Other ENT (thrush less apparent but she still feels it.) Neck Exam: Positive: JVD Chest Exam: Positive: Wheezing, Diminished; Negative: Rhonchi (minimal basilar rales left. less air flow noise than yesterday) Heart Exam: Positive: Regular Rhythm, Murmurs Abdomen Exam: Positive: Normal bowel sounds, Soft Extremity Exam: Negative: Edema Skin Exam: Positive: Nl turgor and temperature Psych Exam: Positive: Mental status NL Assessment /Plan Problems (1) Acute and chronic respiratory failure with hypoxia Problem Text: CXR 04/20 showed slightly improved left basilar density. Sputum grew moderate Serratia Marcescens s Levaquin REmians on Avelox & po prednisone malclearance of secretion-continue muco BID, guai BID; refuses 3% NS neb chronic 3L NC Long discussion about the chronic nature of her respiratory issues and the limitations in her ability to live alone and perform ADLs. This is likely her new baseline and she is at high risk for recurrent exacerbations. She does not qualify for PT. She declines placement. She hoping to be able to hire aides in her home to suplement the care her daughters can provide when they are avail able. PFS is involved 04/20 + chest PT c nebs 04/09: dyspneic. s/p bronchoscopy lot of mucus removed from airway and firm plug was successfully removed, per Dr. Nielsen, could not do complete BAL 2 desat 04/06 - Pulmonary has seen patient in consultation. Getting Acapella for mucous plugging/bronchiectasis but patient reports this hurts her chest. 04/03 + guai and Acapella to attempt to improve LLL aeration 04/02 BCX2 NG 04/02 RESP PCR - 04/02/19 CT chest: . No evidence of left pleural effusion. 2. Left lower lobe atelectasis/collapse, with central airway filling suggesting possible aspiration 3. Pulmonary hypertension (2) Leukocytosis Status: Acute Problem Text: D4 moxi 04/20 down to 15.9, improved CXR 04/18 to 20K 04/17 + moxi 400 04/17 BCX2 NG 04/19 SCX P 04/17 CXR persistent LLL opacity (3) Thrombocytopenia Status: Resolved Problem Text: 04/20 suspect this was lab error, repeat shows normal and stable plt count. 04/19 only new med: moxi-started 04/17 04/19 54K-plan hold moxi and apix if further decline baseline 04/18 190K (4) Anemia Status: Acute Problem Text: 04/18 7.8-tx 1u PRBCs (of note 04/19 plt to 54K) baseline hgb 9s (5) Diastolic CHF, chronic Permanent Comment: ECHO 08/2018: CONCLUSIONS: 1. Severe focal thickening and focal calcific deposits of a 3-cusp aortic valve with severe reduction in aortic cusp mobility. Aortic valve stenosis considered to be severe on the basis of aortic valve area calculation (0.74 cm) and dimensionless index (0.23). Aortic valve stenosis considered to be moderate on the basis of peak aortic valve velocity (3.4 cm/sec) and mean aortic valve gradient (30 mmHg). 2. Mild concentric left ventricle hypertrophy. No regional LV wall motion abnormalities. Normal regional LV wall motion and wall thickening. Left ventricular ejection fraction of 65% by visual estimate. Normal LV systolic function. Grade II LV diastolic dysfunction (normal filling pattern). 3. Moderate left atrial dilatation. 4. Severe mitral annular calcification. Very mild mitral regurgitation. No mitral stenosis. 5. Suggestive of moderate elevation of estimated right ventricle systolic pr essure (47 mmHg). Mild tricuspid regurgitation. Normal right ventricle size and systolic function. Inferior vena cava dilatation suggestive of elevated central venous pressure of at least 20 mmHg. ADDITIONAL COMMENTS AND RECOMMENDATIONS: Consider aortic valve replacement if the patient is a suitable candidate. DD: Hai Orellana MD, FAC 08/20/18 9726 Last Edited By: Toni Lewis MD on Mar 21, 2019 18:47 Status: Acute Response to Treatment: Stable Problem Text: Stable on bumet 4 (HD 09/15) -5.3L since 04/16-caution c too aggressive preload reduction given severe 04/04 to 54/2.1, 3.3/2.4 c BNP to 2993; therefore, fur 80 IV q8H to HD bum 09/15 and held los 25 04/02 BNP 4023 (03/11 2168) (6) Thrush Status: Acute Response to Treatment: Improving Problem Text: improved sp 04/17 flucon 200 x 1, then 50 QD x 2D Advised on rinsing mouth post neb txs. Needs to take out dentures and clean them, Dentures need to come out with swish and swallow nystatin (7) Aortic stenosis, severe Status: Chronic Response to Treatment: Stable Problem Text: 04/17 rated as "only" moderate with most recent Echo. [facility] and Dr. Herring felt too high risk for TAVR (8) COPD (chronic obstructive pulmonary disease) Status: Chronic Response to Treatment: Improving Problem Text: 04/18 prednisone boosted yesterday due to worsening respiratory symptoms 04/12/19: wean prednisone. 04/09 will reduce steroid to 20mg daily now that she is post-bronch presumed contributor to LLL volume loss. SoluMedrol 40 q8 Nebs alb/Ipra (9) JASPAL (obstructive sleep apnea) Status: Chronic (10) Atrial fibrillation Status: Chronic Problem Text: RC dilt CD 180. Also on Amiodarone. ECG: Sinus maday on admission. HR running 50s and 60s per VS stroke prophylaxis on Eliquis at 2.5, bid. (11) Diabetes mellitus Status: Chronic Problem Text: 04/20 - Blood sugars high again with higher dose of steroids - increase Levemir 04/17 reduced insulin requirements due to decreasing steroid use so doses of Levemir reduced HD glar 31 QHS-labile BG given fluctuating GC dosages 04/16 FSBS 46 this morning, very symptomatic, decreased ins det 40 QHS to 35 QHS, monitor. (12) Hypothyroidism Status: Chronic Problem Text: on HD LT4 100 (13) CKD (chronic kidney disease) stage 3, GFR 30-59 ml/min Status: Chronic Response to Treatment: Worse Problem Text: at baseline cr 1.5-1.7 (14) Physical deconditioning Status: Chronic Problem Text: 04/13 safe to dc home per PT Plan/VTE VTE Prophylaxis Ordered?: Yes Plan Therapy: PT VS, I&O, 24H, Fishbone Vital Signs/I&O Vital Signs Date Time Temp Pulse Resp B/P (MAP) Pulse Ox O2 Delivery O2 Flow Rate FiO2 04/21/19 18:00 160/58 (92) 04/21/19 14:00 97.5 66 20 98 Nasal Cannula 4.0 I&O- Last 24 Hours up to 6 AM 04/21/19 06:00 Intake Total 1775 ml Output Total 1600 ml Balance 175 ml Laboratory Data 24H LABS Laboratory Tests 2 04/20/19 20:43: Bedside Glucose (Misc Panel) 327H 04/21/19 02:21: Bedside Glucose (Misc Panel) 347H 04/21/19 05:38: Nucleated Red Blood Cells % (auto) 0.0, Anion Gap 3L, Glomerular Filtration Rate 36.0, Calcium Level 9.0, Magnesium Level 2.6H 04/21/19 11:36: Bedside Glucose (Misc Panel) 75L 04/21/19 17:11: Bedside Glucose (Misc Panel) 282H CBC/BMP Laboratory Tests 04/21/19 05:38 Microbiology Microbiology 04/19/19 Gram Stain - Final, Complete 04/19/19 Sputum Culture - Final, Complete Serratia Marcescens 04/17/19 Blood Culture - Preliminary, Resulted No Growth after 72 hours. All specime... 04/17/19 Blood Culture - Preliminary, Resulted No Growth after 72 hours. All specime... OSCAR ORTEZ PA-C Apr 21, 2019 20:09
[2019-04-21] MEDS ORDERED: LEVEMIR (INSULIN DETEMIR) 1 UNITS/0.01ML SC SCH (21:00)
[2019-04-21] MEDS: ATORVASTATIN 20 MG TAB PO SCH (21:37)
[2019-04-21] MEDS: AMIODARONE 200 MG TAB (PACERONE) PO SCH (21:38)
[2019-04-22 05:50] LABS: HEMATOCRIT 29.2 % (36.0-47.0); HEMOGLOBIN 8.8 g/dl (12.0-15.5); MEAN CORPUSCULAR HEMOGLOBIN 27.2 pg (27.0-33.0); MEAN CORPUSCULAR HGB CONC 30.1 g/dl (32.0-36.5); MEAN CORPUSCULAR VOLUME 90.4 fl (80.0-96.0); PLATELET COUNT, AUTOMATED 186 10^3/uL (150-450); RED BLOOD COUNT 3.23 10^6/uL (4.00-5.40); WHITE BLOOD COUNT 9.4 10^3/uL (4.0-10.0)
[2019-04-22 06:00] VITALS: BP 176/64
[2019-04-22 06:14] LABS: CALCIUM LEVEL 8.8 MG/DL (8.8-10.2); CREATININE FOR GFR 1.37 MG/DL (0.55-1.30); GLOMERULAR FILTRATION RATE 39.4 (>32); MAGNESIUM LEVEL 2.4 MG/DL (1.8-2.4); POTASSIUM SERUM 3.8 MEQ/L (3.5-5.1)
[2019-04-22] MEDS: MOXIFLOXACIN 400 MG TAB PO SCH (06:24)
[2019-04-22] MEDS: LEVOTHYROXINE 100MCG TABLET (0.1MG) PO SCH (06:25)
[2019-04-22] MEDS: SODIUM CHLORIDE HYPERTONIC 3% 15ML NEB SOL INH SCH ×5 (07:55→20:38)
[2019-04-22] MEDS: IPRATROPIUM 0.5MG/ALBUTEROL 2.5MG INH SOL UD 3ML (DUONEB)(J7620) NEB SCH ×3 (07:56→20:38)
[2019-04-22] MEDS: FORMOTEROL FUMARATE 20 MCG/2 ML INHALATION SOLUTION (PERFOROMIST) INH SCH ×2 (07:56→20:38)
[2019-04-22] MEDS: ACETYLCYSTEINE 20% 4 ML VIAL (200MG/ML) INH SCH ×2 (07:56→20:00)
[2019-04-22] MEDS: APIXABAN 2.5 MG TAB (ELIQUIS) PO SCH ×2 (09:03→20:48)
[2019-04-22] MEDS: guaiFENesin ER 600 MG TAB PO SCH ×2 (09:03→20:49)
[2019-04-22] MEDS: predniSONE 20 MG TAB PO SCH (09:03)
[2019-04-22] MEDS: CALCITRIOL 0.25 MCG CAP (S0169) PO SCH (09:03)
[2019-04-22] MEDS: ASPIRIN 81 MG ENTERIC TAB PO SCH (09:03)
[2019-04-22] MEDS: PANTOPRAZOLE 40MG TAB (PROTONIX) PO SCH (09:03)
[2019-04-22] MEDS: BUMETANIDE 1 MG TAB PO SCH (09:04)
[2019-04-22] MEDS: HumaLOG INSULIN (NovoLOG) PER UNIT SC SCH ×4 (09:04→20:50)
[2019-04-22] MEDS: busPIRone 10 MG TAB PO SCH ×3 (09:04→20:48)
[2019-04-22] MEDS: LOSARTAN 25 MG TAB PO SCH (09:07)
[2019-04-22] MEDS ORDERED: MOXI400T11 PO (11:32)
[2019-04-22] MEDS ORDERED: MUCI600T31 PO (11:32)
[2019-04-22] MEDS ORDERED: PRED20TA PO (11:32)
[2019-04-22] MEDS ORDERED: LANTINJ4 SC (11:32)
[2019-04-22] MEDS ORDERED: DILT240C83 PO (11:32)
--- NOTE | 2019-04-22 13:42 | DSES ---
DATE OF ADMISSION: DATE OF DISCHARGE: PRIMARY CARE PROVIDER: ANJANA Beltran. ATTENDING TODAY: Dr. Leroy Rueda. HISTORY: This is an 83-year-old female patient who follows with Mirian Garcia in the outpatient setting who has been in the hospital for the last couple of weeks after she was admitted for shortness of breath. She had recently been in the hospital for similar symptoms and prior to that had been in for abdominal pain likely secondary to diverticulitis. . She was admitted to the hospital with a chronic obstructive pulmonary disease (COPD) exacerbation. X-ray indicated a left-sided pleural effusion. She was started on methylprednisone. Incentive spirometry was ordered. She was also given IV Lasix out of concern for acute on chronic congestive heart failure. During her hospitalization, she has remained medically stable, although she has been very slow to turn around. She underwent bronchoscopy with Dr. Nielsen secondary to mucous plugging with some improvement in her symptoms. Pulmonary has subsequently signed off. The patient was started on Mucomyst as well as acapella. Her Solu-Medrol has fully been tapered to prednisone. Repeat imaging performed over the weekend suggested that she potentially had persistent infiltrate and therefore, she is now on Avelox. A sputum culture was successfully obtained which grew Serratia which is susceptible to Levaquin. The patient seems to be tolerating this well and her leukocytosis has normalized. She has a history of chronic kidney disease. She was in mild acute renal failure on her admission, although this has stabilized. She did require transfusion of one unit of packed red blood cells secondary to anemia. This is likely the result of chronic disease, mild acute renal failure on chronic kidney disease. Her blood sugars have been difficult to control during her hospitalization likely in part to her not feeling well and not eating well as well as steroids. Her Levemir dose has been adjusted multiple times. She is going to go home on Lantus. She is normally on 31 units and I ordered this to be given as 20 units. She will outpatient followup in regards to management of her blood sugars. She has been seen by physical therapy multiple times who, at this point, feel as though she is safe to return home. Her family is supportive and attentive. They are working to secure her in-home care. We have discussed fdc care, which the patient declines at point. DISCHARGE DIAGNOSES: 1. Acute on chronic respiratory failure with hypoxemia. 2. Pneumonia secondary to Serratia. 3. Acute on chronic diastolic congestive heart failure. 4. Anemia of chronic disease. 5. Thrush. 6. Severe aortic stenosis. 7. Chronic obstructive pulmonary disease (COPD). 8. Obstructive sleep apnea. 9. Chronic atrial fibrillation. 10. Diabetes mellitus type 2. 11. Hyperthyroidism. 12. Chronic kidney disease stage III. 13. Physical deconditioning. DISCHARGE MEDICATIONS: - diltiazem CD 240 mg by mouth daily - guaifenesin 1200 mg by mouth twice a day - Avelox 400 mg daily - prednisone 40 mg daily times 3 days, then 30 mg daily times 3 days, then 20 mg daily times 3 days, 10 mg daily times 3 days. - Albuterol sulfate nebulizer inhaled every 4 hours as needed for shortness of breath. - amiodarone 200 mg daily - Eliquis 2.5 mg by mouth twice a day - aspirin 81 mg daily - atorvastatin 40 mg by mouth nightly - bumetanide 4 mg daily - BuSpar 10 mg by mouth three times a day - Calcitriol 0.25 mcg daily - Viactiv one tablet two daily - Perforomist 20 mcg one vial inhaled twice daily - levothyroxine 100 mcg daily - losartan 25 mg daily - meclizine 25 mg by mouth three times a day as needed for dizziness - Nitrostat 0.4 mg sublingually daily as needed for angina - senna two tablets by mouth nightly as needed for constipation - Lantus 20 units subcu nightly DISCHARGE PLAN: Followup with her primary care provider (PCP) in 1 week. Her activity should be as tolerate. Her diet is consistent carbohydrate, no added salt.
[2019-04-22 14:00] VITALS: BP 160/56
[2019-04-22] MEDS: ATORVASTATIN 20 MG TAB PO SCH (20:49)
[2019-04-22] MEDS: AMIODARONE 200 MG TAB (PACERONE) PO SCH (20:49)
[2019-04-22] MEDS ORDERED: LEVEMIR (INSULIN DETEMIR) 1 UNITS/0.01ML SC SCH (21:00)
[2019-04-22 22:00] VITALS: BP 150/68
[2019-04-23 06:00] VITALS: BP 150/68
[2019-04-23] MEDS: LEVOTHYROXINE 100MCG TABLET (0.1MG) PO SCH (06:04)
[2019-04-23] MEDS: MOXIFLOXACIN 400 MG TAB PO SCH (06:04)
[2019-04-23 06:16] LABS: HEMATOCRIT 28.9 % (36.0-47.0); HEMOGLOBIN 8.7 g/dl (12.0-15.5); MEAN CORPUSCULAR HEMOGLOBIN 26.9 pg (27.0-33.0); MEAN CORPUSCULAR HGB CONC 30.1 g/dl (32.0-36.5); MEAN CORPUSCULAR VOLUME 89.2 fl (80.0-96.0); PLATELET COUNT, AUTOMATED 192 10^3/uL (150-450); RED BLOOD COUNT 3.24 10^6/uL (4.00-5.40)
[2019-04-23 06:39] LABS: CALCIUM LEVEL 7.9 MG/DL (8.8-10.2); CREATININE FOR GFR 1.28 MG/DL (0.55-1.30); GLOMERULAR FILTRATION RATE 42.6 (>32); MAGNESIUM LEVEL 2.2 MG/DL (1.8-2.4); POTASSIUM SERUM 3.7 MEQ/L (3.5-5.1)
[2019-04-23] MEDS: SODIUM CHLORIDE HYPERTONIC 3% 15ML NEB SOL INH SCH (07:12)
[2019-04-23] MEDS: IPRATROPIUM 0.5MG/ALBUTEROL 2.5MG INH SOL UD 3ML (DUONEB)(J7620) NEB SCH (07:13)
[2019-04-23] MEDS: ACETYLCYSTEINE 20% 4 ML VIAL (200MG/ML) INH SCH (07:13)
[2019-04-23] MEDS: FORMOTEROL FUMARATE 20 MCG/2 ML INHALATION SOLUTION (PERFOROMIST) INH SCH (07:13)
[2019-04-23 08:24] VITALS: BP 158/59
[2019-04-23] MEDS: APIXABAN 2.5 MG TAB (ELIQUIS) PO SCH (08:25)
[2019-04-23] MEDS: predniSONE 20 MG TAB PO SCH (08:25)
[2019-04-23] MEDS: CALCITRIOL 0.25 MCG CAP (S0169) PO SCH (08:25)
[2019-04-23] MEDS: busPIRone 10 MG TAB PO SCH (08:25)
[2019-04-23] MEDS: guaiFENesin ER 600 MG TAB PO SCH (08:25)
[2019-04-23] MEDS: LOSARTAN 25 MG TAB PO SCH (08:26)
[2019-04-23] MEDS: PANTOPRAZOLE 40MG TAB (PROTONIX) PO SCH (08:26)
[2019-04-23] MEDS: ASPIRIN 81 MG ENTERIC TAB PO SCH (08:26)
[2019-04-23] MEDS: HumaLOG INSULIN (NovoLOG) PER UNIT SC SCH (08:26)
[2019-04-23] MEDS: BUMETANIDE 1 MG TAB PO SCH (10:56)
[2019-04-24] MEDS ORDERED: MOXI1TAB PO (21:55)
[2019-04-24] MEDS ORDERED: MUCI600T31 PO (21:55)
[2019-04-24] MEDS ORDERED: PRED10PA PO (21:55)
[2019-04-24] MEDS ORDERED: LANTINJ4 SC (21:55)
[2019-04-24] MEDS ORDERED: DILT240C82 PO (22:03)
== END 2019-04-23 11:53 | disposition home or self-care (01) | DRG 291 ==
LOC: M ED 13:26 → M ED INP 17:32 → M MSPAV 04-03 00:57
PROVIDERS: ADMIT Internal Medicine; ATTEND Family Medicine
PROC: 05H933Z Insertion of Infusion Device into Right Brachial Vein, Percutaneous Approach (ICD-10-PCS; 2019-04-07)
PROC: 0B9J8ZZ Drainage of Left Lower Lung Lobe, Via Natural or Artificial Opening Endoscopic (ICD-10-PCS; principal; 2019-04-09 11:30)
PROC: 30233N1 Transfusion of Nonautologous Red Blood Cells into Peripheral Vein, Percutaneous Approach (ICD-10-PCS; 2019-04-18)
DX: I13.0 Hypertensive heart and chronic kidney disease with heart failure and stage 1 through stage 4 chronic kidney disease, or unspecified chronic kidney disease (principal); J18.9 Pneumonia, unspecified organism; I50.33 Acute on chronic diastolic (congestive) heart failure; J96.21 Acute and chronic respiratory failure with hypoxia; J44.1 Chronic obstructive pulmonary disease with (acute) exacerbation; B37.0 Candidal stomatitis; N17.9 Acute kidney failure, unspecified; D69.6 Thrombocytopenia, unspecified; E11.22 Type 2 diabetes mellitus with diabetic chronic kidney disease; Z66 Do not resuscitate; D72.829 Elevated white blood cell count, unspecified; D63.1 Anemia in chronic kidney disease; I48.91 Unspecified atrial fibrillation; E05.90 Thyrotoxicosis, unspecified without thyrotoxic crisis or storm; I35.0 Nonrheumatic aortic (valve) stenosis; G47.33 Obstructive sleep apnea (adult) (pediatric); N18.3 Chronic kidney disease, stage 3 (moderate); Z79.52 Long term (current) use of systemic steroids; Z79.4 Long term (current) use of insulin; Z79.899 Other long term (current) drug therapy; Z88.0 Allergy status to penicillin; Z88.2 Allergy status to sulfonamides; Z88.8 Allergy status to other drugs, medicaments and biological substances; Z88.6 Allergy status to analgesic agent; Z79.01 Long term (current) use of anticoagulants; Z87.891 Personal history of nicotine dependence; Z53.09 Procedure and treatment not carried out because of other contraindication